=== PATIENT | male | born 1940 | race Two or more races ===

== ENCOUNTER 2019-09-15 15:40 | Inpatient (IN) | payer MEDICARE ==
--- NOTE | 2019-09-15 16:15 | RAD ---
EXAM: Single view of the chest HISTORY: Arrhythmia COMPARISON: 08/31/2019 FINDINGS: Single view of the chest shows a normal sized cardiomediastinal silhouette. There is no mayo dence of consolidation, mass, or pleural effusion. Degenerative changes are seen in the spine. IMPRESSION: No evidence of acute cardiopulmonary disease
[2019-09-15 16:22] LABS: #Basophils 0.1 thou/uL (0.0-0.2); #Eosinphils 0.3 thou/uL (0.0-0.7); #Lymphocytes 2.9 thou/uL (1.20-3.40); #Monocytes 0.8 thou/uL (0.11-0.59); #Neutrophils 8.2 thou/uL (1.40-6.50); %Basophils 0.6 % (0.0-1.0); %Eosinophils 2.3 % (0.0-10.0); %Lymphocytes 23.5 % (21.0-51.0); %Monocytes 6.3 % (0.0-10.0); %Neutrophils 67.2 % (42.0-75.0); Hemoglobin 14.9 g/dL (14.0-18.0); Mean Corpuscular HGB CONC 31.7 g/dL (32.0-36.0); Mean Corpuscular Volume 88.3 fL (78.0-98.0); Mean Platelet Volume 10.9 fL (7.4-10.4); Platelet Count 201 thou/uL (130-400); RBC Distribution Width 13.3 % (11.5-14.5); Red Blood Cell (RBC) Count 5.31 mill/uL (4.70-6.10); White Blood Cell (WBC) Count 12.2 thou/uL (4.8-10.8)
[2019-09-15] MEDS ORDERED: Diltiazem 125 MG/25 ML ONE (16:25)
[2019-09-15 16:48] LABS: ALT (SGPT) 16 U/L (8-55); AST (SGOT) 18 U/L (5-34); Albumin 3.7 g/dL (3.4-4.8); Alkaline Phosphatase 67 U/L (40-110); Anion Gap 16 mmol/L (10-20); BUN (Urea Nitrogen) 29 mg/dL (8.4-25.7); Bilirubin, Total 0.3 mg/dL (0.2-1.2); CK (CPK) 81 U/L (30-200); Calc. Creatinine Clearance 0 mL/min (70-130); Calcium 8.4 mg/dL (7.8-10.44); Carbon Dioxide 24 mmol/L (23-31); Chloride 103 mmol/L (98-107); Estimated GFR-MDRD 51; Globulin 2.7 g/dL (2.4-3.5); Glucose 218 mg/dL (83-110); Potassium 4.3 mmol/L (3.5-5.1); Protein, Total 6.4 g/dL (5.8-8.1); Sodium 139 mmol/L (136-145)
[2019-09-15 17:24] LABS: Bacteria/HPF 2+ HPF (None Seen); Bilirubin Negative (Negative); Blood, Urine Negative (Negative); Clarity Clear (Clear); Glucose, Urine (Dipstick) Normal (Negative); Leukocyte 250 Leu/uL (Negative); Nitrite Negative (Negative); Protein, Urine (Dipstick) Negative (Neg-Trace); RBC/HPF 0-3 HPF (0-3); Squamous Epithelial 0-3 HPF (0-3); Urobilinogen Normal mg/dL (Less than 2)
--- NOTE | 2019-09-15 18:35 | PDOC.FPRHP ---
- History of Present Illness Chief Complaint: heart palpitations History of Present Illness: Mr. Hogan is a 79 yo M who started feeling bad around noon yesterday with heart palpitations. [place] SOB at this time. Denies chest pain. He recalls this happening to him about 6 months ago and was hospitalized in [place]. Was not diagnosed w/ a-fib at the time and says his workup for CHF was negative. Does not take anticoagulation or antiarrythmic meds. + orthopnea which is new. Now laying at an incline in his hospital bed at home for the past few nights. Chronically has edema in lower legs. ED Course: Received cardizem by EMS. Started on diltiazem drip in ED. Given levaquin x1 for asymptomatic UTI. - Allergies/Adverse Reactions Allergies Allergy/AdvReac Type Severity Reaction Status Date / Time Penicillins Allergy Verified 09/15/19 20:48 - Home Medications Medication Instructions Recorded Confirmed Type Albuterol Sulfate [Proair HFA] 2 puff INH Q4HR PRN 09/15/19 09/15/19 History Allopurinol 100 mg PO BID 09/15/19 09/15/19 History Atorvastatin Calcium [Lipitor] 20 mg PO DAILY 09/15/19 09/15/19 History Carvedilol [Coreg] 6.25 mg PO BID 09/15/19 09/15/19 History Furosemide [Lasix] 40 mg PO DAILY 09/15/19 09/15/19 History Hydrochlorothiazide 100 mg PO DAILY 09/15/19 09/15/19 History Levalbuterol HCl [Xopenex] 1.25 mg NEB Q8HR 09/15/19 09/15/19 History Omeprazole 20 mg PO DAILY 09/15/19 09/15/19 History Tamsulosin HCl 0.4 mg PO DAILY 09/15/19 09/15/19 History glipiZIDE 10 mg PO DAILY-AC 09/15/19 09/15/19 History metFORMIN HCl [Metformin HCl] 1,000 mg PO BID 09/15/19 09/15/19 History - History PMHx: DM, HTN, COPD, gout, Hypercholesterolemia, says they ruled out CHF 6 months w/ ECHO in [place], BPH, denies any kidney problems. PSHx: hemorrhoidectomy, 29 years FHx: - denies heart problems in family - DM runs in family. 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 - never smoker - previously drank alcohol about 20 years ago, had a "problem" he said. - Denies other drugs - Review of Systems General: reports: fever/chills (+ chills) Eyes: denies: vision changes ENT: denies: rhinorrhea Respiratory: reports: cough, shortness of breath Cardiovascular: reports: palpitation, edema, orthopnea (sleeps in hospital bed at incline at night. Reports SOB w/ laying flat). denies: chest pain Gastrointestinal: denies: nausea, vomiting, diarrhea, abdominal pain Genitourinary: denies: dysuria Skin: reports: itching (all over) Musculoskeletal: denies: pain Neurological: reports: weakness. denies: syncope Psychological: denies: anxiety, depression - Vital signs BP: 128/107, Pulse: 105, Resp: 22, Temp: 98.0 (Oral), Pain: 0, O2 sat: 98 on ( 2L Oxygen), Time: 09/15/2019 18:02. - Physical Exam Constitutional: NAD, awake, alert and oriented, well developed HEENT: normocephalic and atraumatic, PERRLA, EOMI, conjunctiva clear, no scleral icterus, normal nasal mucosa, MMM Heart: RRR, normal S1/S2 -Heart: mild nonpitting edema in LE b/l up to ankles. systolic murmur 2/6 over apex Lungs: CTAB, no wheezing (poor air movement) Abdomen: soft, non-tender, bowel sounds present, no masses/distention Musculoskeletal: normal structure Neurological: no focal deficit Skin: no rash/lesions Heme/Lymphatic: no unusual bruising or bleeding Psychiatric: normal mood and affect, intact recent and remote memory FMR H&P: Results - Labs Result Diagrams: 09/15/19 16:12 09/15/19 16:12 Lab results: WBC 12.2 thou/uL (4.8-10.8) H 09/15/19 16:12 Hgb 14.9 g/dL (14.0-18.0) 09/15/19 16:12 Hct 46.8 % (42.0-52.0) 09/15/19 16:12 MCV 88.3 fL (78.0-98.0) 09/15/19 16:12 Plt Count 201 thou/uL (130-400) 09/15/19 16:12 Neutrophils % 67.2 % (42.0-75.0) 09/15/19 16:12 Sodium 139 mmol/L (136-145) 09/15/19 16:12 Potassium 4.3 mmol/L (3.5-5.1) 09/15/19 16:12 Chloride 103 mmol/L (98-107) 09/15/19 16:12 Carbon Dioxide 24 mmol/L (23-31) 09/15/19 16:12 BUN 29 mg/dL (8.4-25.7) H 09/15/19 16:12 Creatinine 1.35 mg/dL (0.7-1.3) H 09/15/19 16:12 Glucose 218 mg/dL (83-110) H 09/15/19 16:12 Calcium 8.4 mg/dL (7.8-10.44) 09/15/19 16:12 Total Bilirubin 0.3 mg/dL (0.2-1.2) 09/15/19 16:12 AST 18 U/L (5-34) 09/15/19 16:12 ALT 16 U/L (8-55) 09/15/19 16:12 Alkaline Phosphatase 67 U/L (40-110) 09/15/19 16:12 Creatine Kinase 81 U/L (30-200) 09/15/19 16:12 Serum Total Protein 6.4 g/dL (5.8-8.1) 09/15/19 16:12 Albumin 3.7 g/dL (3.4-4.8) 09/15/19 16:12 Urine Ketones Negative mg/dL (Negative) 09/15/19 17:11 Urine Blood Negative (Negative) 09/15/19 17:11 Urine Nitrite Negative (Negative) 09/15/19 17:11 Ur Leukocyte Esterase 250 Dalia/uL (Negative) A 09/15/19 17:11 Urine RBC 0-3 HPF (0-3) 09/15/19 17:11 Urine WBC 4-6 HPF (0-3) A 09/15/19 17:11 Ur Squamous Epith Cells 0-3 HPF (0-3) 09/15/19 17:11 Urine Bacteria 2+ HPF (None Seen) A 09/15/19 17:11 - EKG Interpretation EKG: Right axis deviation, a-fib, possible lead placement issue - Radiology Interpretation Chest x-ray Status: image reviewed by me, report reviewed by me (no acute process) FMR H&P: A/P - Problem List (1) Atrial fibrillation with rapid ventricular response Current Visit: Yes Status: Acute Code(s): I48.91 - UNSPECIFIED ATRIAL FIBRILLATION (2) HTN (hypertension) Current Visit: Yes Status: Acute Code(s): I10 - ESSENTIAL (PRIMARY) HYPERTENSION (3) Diabetes mellitus Current Visit: Yes Status: Acute Code(s): E11.9 - TYPE 2 DIABETES MELLITUS WITHOUT COMPLICATIONS (4) CRISTA (acute kidney injury) Current Visit: Yes Status: Acute Code(s): N17.9 - ACUTE KIDNEY FAILURE, UNSPECIFIED - Plan 79 yo M admitted for heart palpitations: Atrial fibrillation w/ RVR, new onset - s/p cardizem by EMS - on diltiazem drip now - ECHO in AM - AM labs of CBC, BMP - Magnesium, TSH pending - Consult cardiology in AM. CRISTA vs CRISTA on CKD - Holding fluids due to pt;s probable CHF issues. Continue to monitor. - Baseline appears to be Creatinine of 1.05. - hold allopurinol New Onset CHF vs. CHF exacerbation - ECHO for EF. - Strict I/Os - Daily weights - Consult cardiology in AM. - Diurese HTN DM BPH - continue home medications Gout - hold allopurinol GERD - hold omeprazole - give pepcid BID while in hospital KAILEY, OHS - morbidly obese - poor air movement, used to sleep w/ CPAP Code: FULL Fluids: none. VTE PPx: lovenox, one dose now, then 40 mg daily GI PPx: none Yoko Alves MD PGY1 Disposition/LOS: admit to telemetry inpatient. LOS > 48 H. FMR H&P: Upper Level - Plan Date/Time: 09/15/191832 PCP: RAMESH Woody ([place], [place]) HPI: This is a 79 yo M with PMH including CHF, DM2, HTN, COPD, and gout who comes in for palpitations and shortness of breath which started getting worse yesterday. He previously lived in a long term but now lives at home alone. He states he is able to ambulate around his house at baseline but uses a wheelchair when going out which he does not do often. Patient denies CP. He does feel short of breath, has been having to sit up at night when sleeping for the last few days. He thinks his baseline weight is about 330, states he is up 8lbs over the last 2-3 months. Does note increased swelling at the legs. Denies ever having a heart catheterization. States he had an echo 6 mo ago and was told it was normal. Patient states he had a similar episode to this one 6 months ago and for which he was admitted in [place]. Dr. Rosales in [place] is his sign carpenter. States he used to use CPAP but insurance quit paying for it. 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 Full ROM. JVD ~ 4 cm difficult to appreciate 2/2 obesity Heart/Cardiovascular System: irregularly irregular, Cap refill < 3 seconds, no rub, no murmur Lungs/Respiratory System: CTA-B, no resp distress, mild exp wheeze, obesity hypoventilation Abdomen/Gastro-Intestinal System: no abdominal tenderness, normal bowel sounds Extremities: Warm extremities. +1 pitting edema to mid calf Neuro: No gross deficits appreciated. CN 2-12 grossly intact Psychiatry: Awake, Alert and cooperative with exam Skin: No lesions, rashes, or ulcers Musculoskeletal: Full ROM A/P: # Atrial Fibrillation w/ RVR - Diltiazem drip 15 - CHADS-VASC:5, eliquis, would be candidate for home anticoagulation - EKG afib w/ RVR, T inv I and AvL, no st changes or q waves - Home coreg - Cardiology consult in AM, check TSH # Likely mild CHF exacerbation - Reports 8lbs wt gain, sleeps sitting up, edema - Lasix 40mg IV, Cr 1.35 (baseline 1.1) monitor - Home coreg - Check echo, BNP - Consider adding Lisinopril, spironolactone pending results - Patient from [facility], likely not candidate for HF clinic here # COPD, Obesity Hypoventilation syndrome, KAILEY - home duoneb, on 2L o2 at home at baseline - likely source for afib # HTN, gout, DMII - home meds, check A1C Fluids: TKO Code status: Full PPx: lovenox Dispo: 2-3 days, would benefit from rehab
[2019-09-15] MEDS ORDERED: Acetaminophen 325 MG TAB PO PRN (19:02)
[2019-09-15] MEDS ORDERED: Enoxaparin Sodium 40 MG/0.4 ML SYRINGE SC SCH (19:15)
[2019-09-15] MEDS ORDERED: Lactated Ringer's 1,000 ML IV SCH (19:30)
[2019-09-15] MEDS ORDERED: Carvedilol 6.25 MG TAB PO SCH (20:00)
[2019-09-15] MEDS ORDERED: Furosemide 40 MG/4 ML VIAL SLOW IVP SCH (20:00)
[2019-09-15 20:03] LABS: Hemoglobin A1c 8.9 % (4.0-6.0)
[2019-09-15 20:53] VITALS: BMI 47.1
[2019-09-15] MEDS ORDERED: Atorvastatin Calcium 40 MG TAB PO SCH (21:00)
[2019-09-15] MEDS: metFORMIN 500 MG TAB PO SCH (22:14)
[2019-09-15] MEDS: Famotidine 20 MG TAB PO SCH (22:14)
[2019-09-16] MEDS ORDERED: PROVENTIL INHALER 6.7 G (200 INHALATIONS) INH PRN (01:53)
[2019-09-16] MEDS: Diltiazem 125 MG in Sodium Chloride 0.9% 100 ML IVPB SCH ×2 (02:18→14:17)
[2019-09-16 04:31] LABS: #Eosinphils 0.4 thou/uL (0.0-0.7); #Lymphocytes 2.6 thou/uL (1.20-3.40); #Monocytes 0.9 thou/uL (0.11-0.59); #Neutrophils 6.9 thou/uL (1.40-6.50); %Basophils 0.4 % (0.0-1.0); %Eosinophils 3.4 % (0.0-10.0); %Lymphocytes 24.3 % (21.0-51.0); %Monocytes 7.9 % (0.0-10.0); Hemoglobin 13.6 g/dL (14.0-18.0); Mean Corpuscular HGB CONC 31.9 g/dL (32.0-36.0); Mean Corpuscular Hemoglobin 28.4 pg (27.0-31.0); Mean Corpuscular Volume 89.2 fL (78.0-98.0); Mean Platelet Volume 10.8 fL (7.4-10.4); Platelet Count 173 thou/uL (130-400); RBC Distribution Width 13.2 % (11.5-14.5); Red Blood Cell (RBC) Count 4.79 mill/uL (4.70-6.10); White Blood Cell (WBC) Count 10.8 thou/uL (4.8-10.8)
[2019-09-16 04:47] LABS: Anion Gap 10 mmol/L (10-20); BUN (Urea Nitrogen) 23 mg/dL (8.4-25.7); Calc. Creatinine Clearance 109 mL/min (70-130); Calcium 8.3 mg/dL (7.8-10.44); Carbon Dioxide 31 mmol/L (23-31); Chloride 100 mmol/L (98-107); Estimated GFR-MDRD 57; Glucose 188 mg/dL (83-110); Potassium 3.3 mmol/L (3.5-5.1); Sodium 138 mmol/L (136-145)
[2019-09-16] MEDS ORDERED: Magnesium 2 GM/50 ML 2 GM in Premix Bag 1 BAG IVPB SCH (05:30)
[2019-09-16] MEDS ORDERED: Potassium Chloride 20 MEQ TAB PO SCH (05:30)
--- NOTE | 2019-09-16 06:04 | PDOC.FM ---
- Subjective Subjective: Pt feeling well this morning, denies any complaints. Does note increasing shortness of breath over the last few months with BARNEY and orthopnea. States he was on anticoagulation 40 years ago for a clot in his lung. Denies ever having bleeding problems, stroke, or hemorrhage. - Objective Vital Signs & Weight: Vital Signs (12 hours) Temp Pulse Resp BP Pulse Ox 09/16/19 03:00 98.1 F 78 23 H 145/71 H 97 09/15/19 20:20 98.3 F 95 18 160/94 H 99 Weight Weight 157.567 kg Result Diagrams: 09/16/19 04:03 09/16/19 04:03 Phys Exam - Physical Examination Constitutional: NAD HEENT: moist MMs Neck: full ROM Rhochi distantly heard in all [place] Irregularly irregular, very distant heart sounds difficult to auscultate Gastrointestinal: soft, non-tender Musculoskeletal: pulses present, edema present (1+ BLE) Neurological: moves all 4 limbs Psychiatric: normal affect, A&O x 3 Dx/Plan (1) Atrial fibrillation Code(s): I48.91 - UNSPECIFIED ATRIAL FIBRILLATION Status: Acute (2) Atrial fibrillation with rapid ventricular response Code(s): I48.91 - UNSPECIFIED ATRIAL FIBRILLATION Status: Resolved (3) Diabetes mellitus Code(s): E11.9 - TYPE 2 DIABETES MELLITUS WITHOUT COMPLICATIONS Status: Acute (4) HTN (hypertension) Code(s): I10 - ESSENTIAL (PRIMARY) HYPERTENSION Status: Acute (5) Obstructive sleep apnea Code(s): G47.33 - OBSTRUCTIVE SLEEP APNEA (ADULT) (PEDIATRIC) Status: Acute - Plan Plan: 79 yo M admitted for heart palpitations: Atrial fibrillation w/ RVR, new onset - Currently rate controlled on dilt ggt @ 10, plan to transition to PO later today - Resumed home coreg - CHADSVASC: 5 - HASBLED: 2 - Pt will likely require conversion to anticoagulant, will await Echo results incase of procedural necessity - Will consult cardiology this morning CRISTA vs CRISTA on CKD - Holding fluids due to probable CHF issues. Continue to monitor. - Currently improved nearing baseline - hold allopurinol New Onset CHF vs. CHF exacerbation - ECHO for EF. - Strict I/Os - Daily weights - Diuresing HTN DM BPH - continue home medications Gout - hold allopurinol GERD - hold omeprazole - give pepcid BID while in hospital KAILEY, OHS - morbidly obese - poor air movement, used to sleep w/ CPAP Code: FULL Fluids: none. VTE PPx: lovenox, one dose now, then 40 mg daily GI PPx: none Disposition/LOS: Admit to telemetry inpatient for continued rate control and cardiac monitoring. LOS > 48 H. Addendum - Attending - Attending Attestation Date/Time: 09/16/192236 I personally evaluated the patient and discussed the management with Dr. Montemayor I agree with the History, Examination, Assessment and Plan documented above with any addition or exceptions noted below.
[2019-09-16] MEDS: Levalbuterol HCl 1.25 MG/0.5 ML NEB NEB SCH ×3 (06:37→22:24)
[2019-09-16] MEDS ORDERED: glipiZIDE 10 MG TAB PO SCH (07:30)
[2019-09-16] MEDS ORDERED: Carvedilol 6.25 MG TAB PO SCH (08:00)
[2019-09-16] MEDS ORDERED: Enoxaparin Sodium 40 MG/0.4 ML SYRINGE SC SCH (09:00)
[2019-09-16] MEDS ORDERED: Furosemide 40 MG TAB PO SCH (09:00)
[2019-09-16] MEDS ORDERED: Hydrochlorothiazide 25 MG TAB PO SCH (09:00)
[2019-09-16] MEDS: metFORMIN 500 MG TAB PO SCH ×2 (09:10→20:44)
[2019-09-16] MEDS: Tamsulosin HCl 0.4 MG CAP PO SCH (09:10)
[2019-09-16] MEDS: Famotidine 20 MG TAB PO SCH ×2 (09:11→20:44)
[2019-09-16] MEDS: Carvedilol 6.25 MG TAB PO SCH ×2 (09:11→20:44)
[2019-09-16] MEDS: Furosemide 40 MG/4 ML VIAL SLOW IVP SCH (09:12)
[2019-09-16] MEDS ORDERED: Dextrose 50% Abboject 50 ML SYRINGE SLOW IVP PRN (17:05)
[2019-09-16] MEDS ORDERED: Dextrose 5% in Water 1,000 ML IV PRN (17:05)
[2019-09-16] MEDS: Insulin Glargine 30 UNITS in Pre-Filled Syringe SC SCH (20:41)
[2019-09-16] MEDS: Enoxaparin Sodium 120 MG/0.8 ML SYRINGE SC SCH (20:44)
[2019-09-16] MEDS: Enoxaparin Sodium 30 MG/0.3 ML SYRINGE SC SCH (20:44)
[2019-09-16] MEDS: Atorvastatin Calcium 20 MG TAB PO SCH (20:44)
[2019-09-16] MEDS ORDERED: Enoxaparin Sodium 100 MG/ML SYRINGE SC SCH ×2 (21:00)
--- NOTE | 2019-09-16 21:43 | CON ---
DATE OF CONSULTATION: HISTORY OF PRESENT ILLNESS: Mr. Hogan in a 79-year-old male with past medical history of hypertension, diabetes, hyperlipidemia, COPD that presented with a 2- day history of not feeling well, shortness of breath and heart palpitations. He was noted to have atrial fibrillation and was given Cardizem by EMS and then started on a diltiazem drip. He has continued to be on a drip since admission. He noted a similar presentation with evaluation at the hospital in [place]. He says he had an echocardiogram at that time, which was normal. He denies any history of prior atrial fibrillation. He notes chronic lower extremity edema, which had worsened over the past week and his primary care physician increased his home dose of Lasix from 20 mg to 40 mg p.o. daily. He reports feeling well today. Notes some shortness of breath that is at baseline. Denies heart palpitations, chest pain. PAST MEDICAL HISTORY: Includes: 1. Hypertension. 2. Type 2 diabetes. 3. Dyslipidemia. 4. BPH. 5. Gout. 6. COPD. PAST SURGICAL HISTORY: Hemorrhoidectomy. FAMILY HISTORY: Denies any family history of heart problems. No family history of diabetes. SOCIAL HISTORY: Denies any current tobacco, alcohol, or drug use. 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 PHYSICAL EXAMINATION: VITAL SIGNS: Temp 97.5, pulse 76, respirations 16, 99% on 3 L, blood pressure 117/77. GENERAL: Awake, alert, oriented and obese. HEENT: Normocephalic, atraumatic. HEART: Irregularly irregular rhythm. LUNGS: Clear to auscultation bilaterally. EXTREMITIES: Nonpitting edema in bilateral lower extremities. LABORATORY DATA: Hemoglobin 13.6, sodium 138, potassium 3.3, creatinine 1.23, GFR of 57, BNP is 179. He has a urinary tract infection with cultures growing presumptive E coli. IMAGIN. Chest x-ray showed no acute cardiopulmonary process. 2. EKG, atrial fibrillation, rate controlled with rate in the 70s. ASSESSMENT AND PLAN: 1. Atrial fibrillation with rapid ventricular rate that is now rate controlled on diltiazem drip. Echocardiogram has been completed, read is pending. 2. Thyroid studies within normal range. 3. Hypertension, well controlled. Continue home medications. 4. We will await results from echocardiogram to give further recommendations. The patient would likely benefit from stress test. Continue IV diuretics. Job ID: [id number] MTDD
[2019-09-16] MEDS ORDERED: Sodium Chloride For Inhalation 0.9% 3 ML NEB ONE (22:06)
--- NOTE | 2019-09-16 23:31 | CON ---
DATE OF CONSULTATION: 09/16/2019 INDICATION FOR CONSULTATION: A 79-year-old patient with atrial fibrillation and rapid ventricular response. We were asked to see him for the atrial fibrillation. He also has history of cardiomyopathy. HISTORY OF PRESENT ILLNESS: This very unfortunate 79-year-old gentleman, who is a very extremely poor historian. He changes story multiple times. 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 He then said he worked for the [employer]. 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 It is unclear exactly what he did in the past and there was no family available. I tried to call his daughter, but no one answered the phone. He apparently had some workup in the past in [place], [place]. He had an echocardiogram, which shows severe decrease in left ventricular systolic function at that time with ejection fraction of 30% range. As far as I can tell, he had no further cardiac evaluation. He did not have a cardiac catheterization. He did apparently say he had some time of pulmonary embolus at some time, but I was uncertain as exactly what was performed at that time. Actually, the ejection fraction in [place] by the measurements showed ejection fraction of 37%. However, the by the dictation ejection fraction was estimated at 50% to 55%, but he did have evidence of severe diastolic dysfunction. There was no significant wall motion abnormalities noted. The left atrium at that time was 4.5 cm. The left ventricular posterior wall thickness is 1.3 and interventricular septal thickness was 1.5 compatible with moderate left ventricular hypertrophy. The left ventricle is at the borderline of upper limits, but did not appear to be dilated. The aortic valve area was 2.0 cm. He underwent echocardiogram today by my evaluation. This is somewhat very technically difficult study with ejection fraction appears to be about 25% to 30%. He also has a history apparently of COPD. He said he had asthma when he was younger. He said he denies any history of tobacco abuse. 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 He also has history of hypercholesterolemia, hypertension as well as diabetes. He presented at this time complaining of palpitations and was found to have atrial fibrillation with a rapid ventricular response. There is an EKG from October of this year, which does show a sinus rhythm and no evidence of atrial fibrillation. The EKG at this time still continues to show atrial fibrillation, but the heart rate is under better control after he has been given IV diltiazem and he denies any chest pain or symptoms of any underlying ischemia. The EKG does not show any acute ischemic changes. He does have some nonspecific ST-segment changes, but no ischemic changes were noted. PAST MEDICAL HISTORY: Difficult to obtain, but it sounds as if he may have had a pulmonary embolus in the past. He has had a hemorrhoidectomy. He has a history of hypertension, diabetes, hypercholesterolemia, COPD, gout. FAMILY HISTORY: Noncontributory at this time. SOCIAL HISTORY: He says he is . He has a daughter who lives nearby. He said he drank heavily in the past, but has not drank for several years. He does not smoke. He said he never did, but was exposed to smoke. REVIEW OF SYSTEMS: I cannot determine whether or not he is telling the truth or not. He had multiple complaints of leg swelling, but today the legs are not edematous. He has pink legs, but not edematous. He also had some shortness of breath, but he denied any chest pain. He had no GI or complaints. MEDICATIONS: Included: 1. Albuterol inhaler. 2. Allopurinol. 3. Lipitor 20 mg daily. 4. Coreg 6.25 mg b.i.d. 5. Lasix 40 mg daily. 6. Hydrochlorothiazide 100 mg daily. 7. Xopenex inhalers or nebulizer treatments. 8. Omeprazole. 9. Tamsulosin 0.4 mg daily. 10. Glipizide 10 mg daily. 11. Metformin 1000 mg b.i.d. PHYSICAL EXAMINATION: GENERAL: Reveals a large morbidly obese gentleman who weighs over 340 pounds, who is almost 350. VITAL SIGNS: His blood pressure 144/64, heart rate is anywhere between 90 to low 100. He is afebrile, respiratory rate 17, O2 saturation 96%. HEENT: Shows the head to be normocephalic and atraumatic. Carotid pulses are present without any bruits. CHEST: Has some late expiratory wheezing. CARDIOVASCULAR: Reveals an irregular regular rhythm. I cannot hear any significant murmurs, heaves, thrills, bruits or rubs. ABDOMEN: Shows morbid obesity. I cannot palpate any palpable masses. There was no tenderness noted. EXTREMITIES: Show no significant clubbing or cyanosis. Pedal pulses were decreased, but were present at least the dorsalis pedis pulses were present. NEUROLOGIC: In my opinion, the patient is very confused. He rambles on about various stories. This may be due to the underlying urinary tract infection or other comorbidities the patient may have, but at this time he does appear to be significantly confused. 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 LABORATORY DATA: Shows a WBC of 10.8, hemoglobin was 13.6, and platelet count was 173,000. Sodium was 138, potassium of 3.3, creatinine is 1.23 with a BUN of 23, and blood sugar was up to 250 by Accu-Cheks. Troponin I is negative. His BNP was 179, which is not significantly elevated, only mildly elevated. IMPRESSION: 1. Morbidly obese gentleman with atrial fibrillation of undetermined etiology and uncertain onset of this atrial fibrillation. He did not have this by EKG earlier back in October of 2018. Since I am uncertain as to when the atrial fibrillation started, he will need to be on anticoagulation for at least 4-6 weeks to try to attempt to cardiovert the patient to sinus rhythm either by medication or electrical cardioversion. His left atrial size did not appear to be dilated very much. It is only about 4.2, and he may be a reasonable candidate for cardioversion. His ejection fraction is compromised and this may be due to the atrial fibrillation with rapid ventricular response. According to the echocardiogram performed at an outside facility earlier, I believe it was performed in October of 2018, ejection fraction by the blending machine feeder showed ejection fraction of 50% to 55%. and the left atrium at that time was 4.5 cm. At this time, I would agree with the Lovenox. He will need to have a higher dose due to his morbid obesity and would be transitioned over to Eliquis, if he is able to take the medication or Coumadin based on the family situation whether or not he will be able to monitor this medication, but most likely Eliquis may be a better situation for this gentleman. 2. History of hypertension. This is under good control at this time. 3. History of diabetes. This is controlled by the primary care service. 4. Hypercholesterolemia. We will continue on statin medication. We will continue to monitor the patient with you, but we will try to transition or increase the beta raj and try to lower the dose of the diltiazem or discontinue this medication due to his decrease in left ventricular systolic function. We will also ask electrophysiology evaluation with this patient with atrial fibrillation and severe decrease in left ventricular systolic function. He may need to undergo a transesophageal echocardiogram to get better evaluation of the left ventricular function and also the left atrial size. If he continues to have problems of tachycardia, he may need to undergo early transesophageal echocardiogram to rule out evidence of left atrial appendage thrombus and then may need to undergo earlier electrical cardioversion of his atrial fibrillation. I thought at some point in time it would be advisable, if he has not had some type of stress testing to undergo stress testing to rule out evidence for underlying coronary artery disease as a possible etiology of the atrial fibrillation. Job ID: [id number]
--- NOTE | 2019-09-17 07:02 | PDOC.FM ---
"- Subjective Subjective: Patient is doing well this morning. He has no new complaints. He denies pain. He states that he is on oxygen at home. - Objective MAR Reviewed: Yes Vital Signs & Weight: Vital Signs (12 hours) Temp Pulse Resp BP BP Pulse Ox 09/17/19 03:36 98.1 F 78 20 136/67 93 L 09/17/19 00:00 77 119/58 L 09/16/19 22:25 90 16 97 09/16/19 22:24 90 16 97 09/16/19 20:44 116/62 09/16/19 20:00 95 09/16/19 19:57 97.8 F 85 18 116/58 L 98 Weight Weight 157.17 kg I&O: 09/15/19 09/16/19 09/17/19 06:59 06:59 06:59 Intake Total 1386 Output Total 750 Balance 636 Result Diagrams: 09/16/19 04:03 09/16/19 04:03 Radiology: ECHO Showed EF of 25-30% Phys Exam - Physical Examination Constitutional: NAD HEENT: PERRLA, moist MMs, sclera anicteric Neck: supple, full ROM Respiratory: no wheezing, no rales, no rhonchi, clear to auscultation bilateral Poor air movement. Cardiovascular: no significant murmur, no rub Regular rate, irregularly irregular rhythm. Gastrointestinal: soft, non-tender Musculoskeletal: edema present Neurological: non-focal, moves all 4 limbs Psychiatric: A&O x 3 Deviation from normal: Odd affect Skin: no rash, normal turgor Dx/Plan (1) CRISTA (acute kidney injury) Code(s): N17.9 - ACUTE KIDNEY FAILURE, UNSPECIFIED Status: Acute (2) Atrial fibrillation Code(s): I48.91 - UNSPECIFIED ATRIAL FIBRILLATION Status: Acute (3) Diabetes mellitus Code(s): E11.9 - TYPE 2 DIABETES MELLITUS WITHOUT COMPLICATIONS Status: Acute (4) HTN (hypertension) Code(s): I10 - ESSENTIAL (PRIMARY) HYPERTENSION Status: Acute (5) Obstructive sleep apnea Code(s): G47.33 - OBSTRUCTIVE SLEEP APNEA (ADULT) (PEDIATRIC) Status: Acute (6) Atrial fibrillation with rapid ventricular response Code(s): I48.91 - UNSPECIFIED ATRIAL FIBRILLATION Status: Resolved - Plan Plan: 79 yo M admitted for heart palpitations: Atrial fibrillation w/ RVR, new onset - Started PO Diltiazem 240mg 09/16. Dilt gtt turned off at 20:48. Overnight, remained in atrial fibrillation with the rate averaging in the 70s-80s - Resumed home coreg - CHADSVASC: 5 | HASBLED: 2 - Started on therapeutic lovenox, cardiology note mentions transitioning to eliquis on discharge. - Cardiology consulted, appreciate recommendations CRISTA vs CRISTA on CKD - Holding fluids due to CHF. Continue to monitor. - Currently improved nearing baseline - hold allopurinol New Onset CHF vs. CHF exacerbation - ECHO showed EF 25-30% - Strict I/Os - Daily weights - Diuresing HTN DM BPH - continue home medications Gout - hold allopurinol GERD - hold omeprazole - give pepcid BID while in hospital KAILEY, OHS - morbidly obese - poor air movement, used to sleep w/ CPAP Code: FULL Fluids: none. VTE PPx: lovenox, therapeutic GI PPx: pepcid Disposition/LOS: Admit to telemetry inpatient for continued rate control and cardiac monitoring. LOS > 48 H. Addendum - Attending - Attending Attestation Date/Time: 09/17/19 3596 I personally evaluated the patient and discussed the management with Dr. Gonzalez. I agree with the History, Examination, Assessment and Plan documented above with any addition or exceptions noted below. Patient here with AFib RVR. Reports improvement this morning and feels much better. HR now controlled, on Coreg and Diltiazem. EP consulted by Cardiology. Continue with diuresis due to volume overload, as well as glucose control. Wean O2 as tolerated."
[2019-09-17] MEDS: Levalbuterol HCl 1.25 MG/0.5 ML NEB NEB SCH (07:25)
[2019-09-17] MEDS: Enoxaparin Sodium 120 MG/0.8 ML SYRINGE SC SCH ×2 (08:36→20:47)
[2019-09-17] MEDS: Furosemide 40 MG/4 ML VIAL SLOW IVP SCH (08:37)
[2019-09-17] MEDS: Enoxaparin Sodium 30 MG/0.3 ML SYRINGE SC SCH ×2 (08:37→20:46)
[2019-09-17] MEDS: Famotidine 20 MG TAB PO SCH ×2 (08:37→20:50)
[2019-09-17] MEDS: metFORMIN 500 MG TAB PO SCH ×2 (08:37→20:47)
[2019-09-17] MEDS: Tamsulosin HCl 0.4 MG CAP PO SCH (08:37)
[2019-09-17] MEDS: Carvedilol 6.25 MG TAB PO SCH ×2 (08:37→20:50)
[2019-09-17] MEDS ORDERED: Albuterol Sulfate 2.5 mg/0.5 ml Neb NEB PRN (08:53)
[2019-09-17] MEDS ORDERED: HumaLOG 300 UNITS/3 ML VIAL SC PRN (09:07)
[2019-09-17] MEDS ORDERED: Levalbuterol HCl 1.25 MG/0.5 ML NEB NEB PRN (09:08)
--- NOTE | 2019-09-17 12:03 | EKG ---
Test Reason : Blood Pressure : / mmHG Vent. Rate : 116 BPM Atrial Rate : 141 BPM P-R Int : 000 ms QRS Dur : 104 ms QT Int : 330 ms P-R-T Axes : 000 181 127 degrees QTc Int : 458 ms Atrial fibrillation with rapid ventricular response Right superior axis deviation Abnormal ECG Confirmed by AKIKO MOY MD ([id number]), desk editor JO VALERIO ([id number]) on 09/17/2019 12:02:42 PM Referred By: Confirmed By:AKIKO MOY MD
--- NOTE | 2019-09-17 16:16 | PDOC.CPN ---
- Subjective Date: 09/17/19 Time: 16:32 Interval history: The pt seen and examined. No overnight events. No cardiac complaints - Objective Allergies/Adverse Reactions: Allergies Allergy/AdvReac Type Severity Reaction Status Date / Time Penicillins Allergy Verified 09/15/19 20:48 Visit Medications: Current Medications Acetaminophen (Tylenol) 650 mg PO Q4H PRN PRN Reason: Headache/Fever/Mild Pain (1-3) Albuterol Sulfate (Proventil Hfa) 2 puff INH Q4HR PRN PRN Reason: SOB/wheezing Albuterol Sulfate (Ventolin) 2.5 mg NEB Q8H PRN PRN Reason: SOB &/or Wheezing Albuterol/Ipratropium (Duoneb) 3 ml NEB [id number] PRN PRN Reason: SOB &/or Wheezing Atorvastatin Calcium (Lipitor) 20 mg PO [facility] Last Admin: 09/16/19 20:44 Dose: 20 mg Carvedilol (Coreg) 6.25 mg PO BID [facility] Last Admin: 09/17/19 08:37 Dose: 6.25 mg Dextrose/Water (Dextrose 50%) 25 gm SLOW IVP PRN PRN PRN Reason: Hypoglycemia Diltiazem HCl (Cardizem Cd) 240 mg PO DAILY [facility] Last Admin: 09/17/19 08:37 Dose: 240 mg Enoxaparin Sodium (Lovenox) 120 mg SC 0900,2100 [facility] Last Admin: 09/17/19 08:36 Dose: 120 mg Enoxaparin Sodium (Lovenox) 30 mg SC BID [facility] Last Admin: 09/17/19 08:37 Dose: 30 mg Famotidine (Pepcid) 20 mg PO BID [facility] Last Admin: 09/17/19 08:37 Dose: 20 mg Furosemide (Lasix) 40 mg SLOW IVP DAILY [facility] Last Admin: 09/17/19 08:37 Dose: 40 mg Glucagon (Glucagon) 1 mg IM PRN PRN PRN Reason: Hypoglycemia Dextrose/Water (D5w) 1,000 mls @ 0 mls/hr IV .Q0M PRN PRN Reason: Hypoglycemia Insulin Glargine 30 units/ (Miscellaneous Medication) 0.3 mls @ 0 mls/hr SC [facility] Last Admin: 09/16/19 20:41 Dose: 0.3 mls Insulin Human Lispro (Humalog) 0 units SC .MILD SLIDING SCALE PRN PRN Reason: Mild Correctional Scale Insulin Human Lispro (Humalog) 0 units SC .BEDTIME SLIDING SC PRN PRN Reason: Bedtime Correctional Scale Metformin HCl (Glucophage) 1,000 mg PO BID [facility] Last Admin: 09/17/19 08:37 Dose: 1,000 mg Sodium Chloride (Flush - Normal Saline) 10 ml IVF Q12HR PRN PRN Reason: Saline Flush Sodium Chloride (Flush - Normal Saline) 10 ml IVF PRN PRN PRN Reason: Saline Flush Tamsulosin HCl (Flomax) 0.4 mg PO DAILY [facility] Last Admin: 09/17/19 08:37 Dose: 0.4 mg Vital Signs & Weight: Vital Signs Temp Pulse Resp BP Pulse Ox 09/17/19 11:37 97.8 F 116 H 17 112/57 L 98 09/17/19 08:37 94 L 09/17/19 07:45 98.2 F 83 18 165/87 H 94 L 09/17/19 07:25 78 16 Weight 346 lb 8 oz - Physical Exam General: alert & oriented x3 Neck: supple neck Cardiac: irregularly regular Extremities: other: (1+ pitting BLE edema with mild erythmia) - Labs Result Diagrams: 09/16/19 04:03 09/16/19 04:03 Troponin/CKMB Troponin I Less than 0.010 ng/mL (< 0.028) 09/15/19 16:12 - Telemetry Supraventricular conduction: atrial fibrillation - Assessment/Plan Assessment/Plan: 1. New onset Afib with RVR - well controlled HR with Diltiazem 240mg qd and Coreg 6.25mg BID; Will decrease Dosage of Diltiazem and increase Coreg dosage due to EF 25-30%; On Lovenox which will transition to eliquis on discharge. EP consult; 2. Chronic systolic HF with EF 25-30% possible due to hx of Afib- 3. HTN - stable with current med 4. DM type 2 5. HLD 6. CRISTA - stable 7. KAILEY - Strongly recommend to wear Cpap at HS for hx of afib and CMY. 8. COPD with Home O2 2LNC MAR reviewed * Echo on 09/16/2019 with EF 25-30%, mild-mod dilated LA, mild TR, and trace MR Pt. seen and eval. by me. I agree with the A/P by the PRESSER ALL AROUND.Chest clear. irreg., no edema.
[2019-09-17] MEDS: Atorvastatin Calcium 20 MG TAB PO SCH (20:46)
[2019-09-17] MEDS: Insulin Glargine 30 UNITS in Pre-Filled Syringe SC SCH (20:48)
--- NOTE | 2019-09-18 06:33 | PDOC.FM ---
"- Subjective Subjective: Mr. Hogan was resting comfortably this morning. He states his swelling is significantly improved. - Objective MAR Reviewed: Yes Vital Signs & Weight: Vital Signs (12 hours) Temp Pulse Resp BP BP BP Pulse Ox 09/18/19 03:20 97.4 F L 84 16 124/90 98 09/18/19 01:34 74 16 09/17/19 23:05 119/63 09/17/19 20:50 116/62 09/17/19 20:00 95 09/17/19 19:01 97.6 F 81 20 130/68 99 Weight Weight 158.258 kg I&O: 09/16/19 09/17/19 09/18/19 06:59 06:59 06:59 Intake Total 1386 1614 Output Total 750 2100 Balance 636 -486 Result Diagrams: 09/16/19 04:03 09/18/19 06:46 Phys Exam - Physical Examination Constitutional: NAD HEENT: moist MMs, sclera anicteric Neck: no JVD, supple Respiratory: no wheezing, no rales, no rhonchi, clear to auscultation bilateral Cardiovascular: no significant murmur, no rub Irregularly irregular rhythm Gastrointestinal: soft, non-tender Musculoskeletal: edema present trace Neurological: non-focal, normal sensation Psychiatric: normal affect, A&O x 3 Skin: no rash, normal turgor Dx/Plan (1) CRISTA (acute kidney injury) Code(s): N17.9 - ACUTE KIDNEY FAILURE, UNSPECIFIED Status: Acute (2) Atrial fibrillation Code(s): I48.91 - UNSPECIFIED ATRIAL FIBRILLATION Status: Acute (3) Diabetes mellitus Code(s): E11.9 - TYPE 2 DIABETES MELLITUS WITHOUT COMPLICATIONS Status: Acute (4) HTN (hypertension) Code(s): I10 - ESSENTIAL (PRIMARY) HYPERTENSION Status: Acute (5) Obstructive sleep apnea Code(s): G47.33 - OBSTRUCTIVE SLEEP APNEA (ADULT) (PEDIATRIC) Status: Acute (6) Atrial fibrillation with rapid ventricular response Code(s): I48.91 - UNSPECIFIED ATRIAL FIBRILLATION Status: Resolved - Plan Plan: 79 yo M admitted for heart palpitations: Atrial fibrillation w/ RVR, new onset - Continues to be in atrial fibrillation, rate in the 70s-90s. - Started PO Diltiazem 240mg 09/16. - Per cardiology progress note: Will decrease Dosage of Diltiazem and increase Coreg dosage due to EF 25-30%. However it appears that they discontinued the diltiazem. Will await recommendations today. - CHADSVASC: 5 | HASBLED: 2 - Started on therapeutic lovenox, cardiology note mentions transitioning to eliquis on discharge. - Cardiology consulted, appreciate recommendations - Awaiting EP Consult CRISTA vs CRISTA on CKD, resolved - Holding fluids due to CHF. Continue to monitor. - Currently improved nearing baseline - hold allopurinol - Repeat BMP today New Onset CHF vs. CHF exacerbation - ECHO showed EF 25-30% - Strict I/Os - Daily weights - Diuresing HTN DM BPH - continue home medications Gout - hold allopurinol GERD - hold omeprazole - give pepcid BID while in hospital KAILEY, OHS - morbidly obese - poor air movement, used to sleep w/ CPAP, recommend outpatient sleep study and to restart CPAP therapy. Code: FULL Fluids: none. VTE PPx: lovenox, therapeutic GI PPx: pepcid Disposition/LOS: Admit to telemetry inpatient for continued rate control and cardiac monitoring. LOS > 48 H. Addendum - Attending - Attending Attestation Date/Time: 09/18/19 6977 I personally evaluated the patient and discussed the management with Dr. Gonzalez. I agree with the History, Examination, Assessment and Plan documented above with any addition or exceptions noted below. Patient improved. Continue with rate control of Afib and await EP recs. Continue diuresis and blood glucose/blood pressure control."
[2019-09-18 07:39] LABS: Anion Gap 12 mmol/L (10-20); BUN (Urea Nitrogen) 14 mg/dL (8.4-25.7); Calc. Creatinine Clearance 144 mL/min (70-130); Calcium 8.7 mg/dL (7.8-10.44); Carbon Dioxide 28 mmol/L (23-31); Chloride 102 mmol/L (98-107); Estimated GFR-MDRD 78; Glucose 112 mg/dL (83-110); Potassium 3.8 mmol/L (3.5-5.1); Sodium 138 mmol/L (136-145)
[2019-09-18] MEDS ORDERED: Carvedilol 6.25 MG TAB PO SCH (08:30)
[2019-09-18] MEDS: Carvedilol 6.25 MG TAB PO SCH (08:42)
[2019-09-18] MEDS: metFORMIN 500 MG TAB PO SCH ×2 (08:43→21:11)
[2019-09-18] MEDS: Enoxaparin Sodium 120 MG/0.8 ML SYRINGE SC SCH ×2 (08:43→21:10)
[2019-09-18] MEDS: Famotidine 20 MG TAB PO SCH ×2 (08:43→21:11)
[2019-09-18] MEDS: Enoxaparin Sodium 30 MG/0.3 ML SYRINGE SC SCH ×2 (08:43→21:10)
[2019-09-18] MEDS: Tamsulosin HCl 0.4 MG CAP PO SCH (08:43)
[2019-09-18] MEDS: Furosemide 40 MG/4 ML VIAL SLOW IVP SCH (08:44)
[2019-09-18] MEDS: cefTRIAXone\\ROCEPHIN 1 GM in Sodium Chloride 0.9% 100 ML IVPB SCH (09:37)
[2019-09-18] MEDS ORDERED: Digoxin 0.5 MG/2 ML AMP SLOW IVP SCH (11:00)
--- NOTE | 2019-09-18 15:25 | PDOC.CPN ---
- Subjective Date: 09/18/19 Time: 15:55 Interval history: The pt seen and examined. No overnight events. No cardiac complaints. - Objective Allergies/Adverse Reactions: Allergies Allergy/AdvReac Type Severity Reaction Status Date / Time Penicillins Allergy Verified 09/15/19 20:48 Visit Medications: Current Medications Acetaminophen (Tylenol) 650 mg PO Q4H PRN PRN Reason: Headache/Fever/Mild Pain (1-3) Albuterol Sulfate (Proventil Hfa) 2 puff INH Q4HR PRN PRN Reason: SOB/wheezing Albuterol Sulfate (Ventolin) 2.5 mg NEB Q8H PRN PRN Reason: SOB &/or Wheezing Albuterol/Ipratropium (Duoneb) 3 ml NEB [id number] PRN PRN Reason: SOB &/or Wheezing Last Admin: 09/18/19 01:34 Dose: 3 ml Atorvastatin Calcium (Lipitor) 20 mg PO [facility] Last Admin: 09/17/19 20:46 Dose: 20 mg Carvedilol (Coreg) 25 mg PO BID-[facility] Dextrose/Water (Dextrose 50%) 25 gm SLOW IVP PRN PRN PRN Reason: Hypoglycemia Digoxin (Lanoxin) 0.25 mg SLOW IVP 0500,1100,1700,2300 [facility] Stop: 09/18/19 23:01 Digoxin (Lanoxin) 0.125 mg PO DAILY [facility] Enoxaparin Sodium (Lovenox) 120 mg SC 0900,2100 [facility] Last Admin: 09/18/19 08:43 Dose: 120 mg Enoxaparin Sodium (Lovenox) 30 mg SC BID [facility] Last Admin: 09/18/19 08:43 Dose: 30 mg Famotidine (Pepcid) 20 mg PO BID [facility] Last Admin: 09/18/19 08:43 Dose: 20 mg Furosemide (Lasix) 40 mg PO DAILY [facility] Glucagon (Glucagon) 1 mg IM PRN PRN PRN Reason: Hypoglycemia Dextrose/Water (D5w) 1,000 mls @ 0 mls/hr IV .Q0M PRN PRN Reason: Hypoglycemia Insulin Glargine 30 units/ (Miscellaneous Medication) 0.3 mls @ 0 mls/hr SC [facility] Last Admin: 09/17/19 20:48 Dose: 0.3 mls Ceftriaxone Sodium 1 gm/ (Sodium Chloride) 100 mls @ 200 mls/hr IVPB Q24HR [facility] Last Admin: 09/18/19 09:37 Dose: 100 mls Insulin Human Lispro (Humalog) 0 units SC .MILD SLIDING SCALE PRN PRN Reason: Mild Correctional Scale Insulin Human Lispro (Humalog) 0 units SC .BEDTIME SLIDING SC PRN PRN Reason: Bedtime Correctional Scale Metformin HCl (Glucophage) 1,000 mg PO BID [facility] Last Admin: 09/18/19 08:43 Dose: 1,000 mg Sodium Chloride (Flush - Normal Saline) 10 ml IVF Q12HR PRN PRN Reason: Saline Flush Last Admin: 09/18/19 08:44 Dose: 10 ml Sodium Chloride (Flush - Normal Saline) 10 ml IVF PRN PRN PRN Reason: Saline Flush Tamsulosin HCl (Flomax) 0.4 mg PO DAILY [facility] Last Admin: 09/18/19 08:43 Dose: 0.4 mg Vital Signs & Weight: Vital Signs Temp Pulse Resp BP Pulse Ox 09/18/19 15:13 97.9 F 99 18 148/99 H 99 09/18/19 11:42 101 H 09/18/19 11:32 98.0 F 116 H 20 118/70 99 09/18/19 07:35 97.6 F 94 18 141/72 H 96 Weight 348 lb 14.4 oz - Physical Exam General: alert & oriented x3 HEENT: mucus membranes moist Neck: supple neck Cardiac: irregularly regular Extremities: no edema - Labs Result Diagrams: 09/22/19 07:03 09/22/19 07:03 Troponin/CKMB Troponin I Less than 0.010 ng/mL (< 0.028) 09/15/19 16:12 - Telemetry Supraventricular conduction: atrial fibrillation - Assessment/Plan Assessment/Plan: 1. New onset Afib with RVR - Digoxin loading dose was started and Coreg 6.25mg BID; may resume Diltiazem drip; On Lovenox which will transition to Eliquis on discharge. EP consult; 2. Chronic systolic HF with EF 25-30% possible due to hx of Afib - 3. HTN - stable with current med 4. DM type 2 5. HLD 6. CRISTA - stable 7. KAILEY - Strongly recommend to wear Cpap at HS for hx of afib and CMY. 8. COPD with Home O2 2LNC MAR reviewed * Echo on 09/16/2019 with EF 25-30%, mild-mod dilated LA, mild TR, and trace MR Pt. seen and eval. by me. I agree with the A/P by the METAL TRIM ERECTOR. He is confused or has dementia. I do not know if he is capable of wearing a Life-Vest otherwise this would be a consideration due to the decr. EF. I may suggest cardiac cath if he becomes more stable and the renal function is stable. He has not been evaluated for CAD that I can determine and he has multiple risk factors. maria del carmen
[2019-09-18] MEDS: Digoxin 0.5 MG/2 ML AMP SLOW IVP SCH ×2 (16:04→23:34)
[2019-09-18] MEDS: Carvedilol 25 MG TAB PO SCH (16:05)
[2019-09-18] MEDS: Insulin Glargine 30 UNITS in Pre-Filled Syringe SC SCH (21:09)
[2019-09-18] MEDS: Atorvastatin Calcium 20 MG TAB PO SCH (21:20)
--- NOTE | 2019-09-19 05:35 | PDOC.FM ---
"- Subjective Subjective: Pt states the he feels a little more weak and run down today. Pt notes that he normally utilizes oxygen only overnight but has been put on it through the morning today. He is awaiting approval for a CPAP at home. Pt continues to deny any urinary sx. States he is diuresing well and lower extremity edema has improved. - Objective Vital Signs & Weight: Vital Signs (12 hours) Temp Pulse Resp BP BP Pulse Ox 09/19/19 04:00 97.8 F 86 20 125/66 100 09/18/19 23:34 93 09/18/19 23:15 93 20 97 09/18/19 19:45 98.3 F 80 18 111/81 97 Weight Weight 158.258 kg I&O: 09/17/19 09/18/19 09/19/19 06:59 06:59 06:59 Intake Total 1386 1614 960 Output Total 750 2100 Balance 636 -486 960 Result Diagrams: 09/19/19 05:48 09/19/19 05:47 Phys Exam - Physical Examination Constitutional: NAD HEENT: moist MMs Neck: full ROM Respiratory: clear to auscultation bilateral [place] inspiratory phase Irregularly irregulary with normal rate, no extra heart sounds Gastrointestinal: soft, non-tender Musculoskeletal: pulses present Trace pitting edema BLE Neurological: non-focal, moves all 4 limbs Psychiatric: normal affect, A&O x 3 Skin: no rash Dx/Plan (1) Atrial fibrillation Code(s): I48.91 - UNSPECIFIED ATRIAL FIBRILLATION Status: Acute (2) Atrial fibrillation with rapid ventricular response Code(s): I48.91 - UNSPECIFIED ATRIAL FIBRILLATION Status: Resolved (3) Diabetes mellitus Code(s): E11.9 - TYPE 2 DIABETES MELLITUS WITHOUT COMPLICATIONS Status: Acute (4) HTN (hypertension) Code(s): I10 - ESSENTIAL (PRIMARY) HYPERTENSION Status: Acute (5) Obstructive sleep apnea Code(s): G47.33 - OBSTRUCTIVE SLEEP APNEA (ADULT) (PEDIATRIC) Status: Acute - Plan Plan: 79 yo M admitted for heart palpitations: Atrial fibrillation w/ RVR, new onset - Continues to be in atrial fibrillation, rate in the 80s-90s. - Per cardiology: diltiazem discontinued due to HFrEF, Digoxin loaded and transitioned to PO, Coreg increased to 25mg. EP, Dr. Christianson consulted. - [facility]: 5 | HASBLED: 2 - Started on therapeutic lovenox, will transition to Eliquis upon discharge CRISTA vs CRISTA on CKD, resolved - Holding fluids due to CHF. Continue to monitor. - hold allopurinol New Onset CHF vs. CHF exacerbation - ECHO showed EF 25-30% - Strict I/Os - Daily weights - Lasix 40mg BID Simple Cystitis - Rocephin daily, transition to PO on DC for full 7 day course HTN DM BPH - continue home medications Gout - hold allopurinol GERD - hold omeprazole - give pepcid BID while in hospital KAILEY, OHS - morbidly obese - poor air movement, used to sleep w/ CPAP, recommend outpatient sleep study and to restart CPAP therapy. Code: FULL Fluids: none. VTE PPx: lovenox, therapeutic GI PPx: pepcid Disposition/LOS: Telemetry inpatient for continued rate control and cardiac monitoring. LOS > 48 H. Addendum - Attending - Attending Attestation Date/Time: 09/19/19 8544 I personally evaluated the patient and discussed the management with Dr. Montemayor. I agree with the History, Examination, Assessment and Plan documented above with any addition or exceptions noted below. Patient overall stable. He continues on treatment for fluid overload associated with new onset Afib RVR. Continue glycemic control. He will be going for evaluation by EP. Cardiology on board."
[2019-09-19 05:59] LABS: #Basophils 0.1 thou/uL (0.0-0.2); #Eosinphils 0.3 thou/uL (0.0-0.7); #Lymphocytes 2.3 thou/uL (1.20-3.40); #Monocytes 0.7 thou/uL (0.11-0.59); #Neutrophils 5.9 thou/uL (1.40-6.50); %Eosinophils 3.2 % (0.0-10.0); %Lymphocytes 24.5 % (21.0-51.0); %Monocytes 7.1 % (0.0-10.0); %Neutrophils 64.1 % (42.0-75.0); Hemoglobin 13.2 g/dL (14.0-18.0); Mean Corpuscular HGB CONC 30.8 g/dL (32.0-36.0); Mean Platelet Volume 11.1 fL (7.4-10.4); Platelet Count 171 thou/uL (130-400); RBC Distribution Width 13.2 % (11.5-14.5); Red Blood Cell (RBC) Count 4.73 mill/uL (4.70-6.10); White Blood Cell (WBC) Count 9.2 thou/uL (4.8-10.8)
[2019-09-19 06:45] LABS: Chloride 105 mmol/L (98-107); Sodium 137 mmol/L (136-145)
[2019-09-19 06:46] LABS: Calcium 8.4 mg/dL (7.8-10.44); Glucose 98 mg/dL (83-110)
[2019-09-19 06:48] LABS: Carbon Dioxide 20 mmol/L (23-31)
[2019-09-19 06:50] LABS: Calc. Creatinine Clearance 156 mL/min (70-130); Estimated GFR-MDRD 86
[2019-09-19 06:51] LABS: BUN (Urea Nitrogen) 12 mg/dL (8.4-25.7)
[2019-09-19 07:04] LABS: Anion Gap 16 mmol/L (10-20)
[2019-09-19] MEDS: Carvedilol 25 MG TAB PO SCH ×2 (07:59→16:19)
[2019-09-19] MEDS: cefTRIAXone\\ROCEPHIN 1 GM in Sodium Chloride 0.9% 100 ML IVPB SCH (07:59)
[2019-09-19] MEDS: Enoxaparin Sodium 30 MG/0.3 ML SYRINGE SC SCH ×2 (08:00→20:56)
[2019-09-19] MEDS: Tamsulosin HCl 0.4 MG CAP PO SCH (08:00)
[2019-09-19] MEDS: Famotidine 20 MG TAB PO SCH ×2 (08:00→20:56)
[2019-09-19] MEDS: metFORMIN 500 MG TAB PO SCH ×2 (08:00→20:55)
[2019-09-19] MEDS: Digoxin 0.125 MG TAB PO SCH (08:00)
[2019-09-19] MEDS: Enoxaparin Sodium 120 MG/0.8 ML SYRINGE SC SCH ×2 (08:00→20:56)
[2019-09-19] MEDS: Furosemide 40 MG TAB PO SCH (08:00)
--- NOTE | 2019-09-19 12:26 | PDOC.CPN ---
- Subjective Date: 09/19/19 Time: 12:28 Interval history: The pt seen and examined. No overnight events. No cardiac complaints. - Objective Allergies/Adverse Reactions: Allergies Allergy/AdvReac Type Severity Reaction Status Date / Time Penicillins Allergy Verified 09/15/19 20:48 Visit Medications: Current Medications Acetaminophen (Tylenol) 650 mg PO Q4H PRN PRN Reason: Headache/Fever/Mild Pain (1-3) Albuterol Sulfate (Proventil Hfa) 2 puff INH Q4HR PRN PRN Reason: SOB/wheezing Albuterol Sulfate (Ventolin) 2.5 mg NEB Q8H PRN PRN Reason: SOB &/or Wheezing Albuterol/Ipratropium (Duoneb) 3 ml NEB [id number] PRN PRN Reason: SOB &/or Wheezing Last Admin: 09/19/19 09:44 Dose: 3 ml Atorvastatin Calcium (Lipitor) 20 mg PO [facility] Last Admin: 09/18/19 21:20 Dose: 20 mg Carvedilol (Coreg) 25 mg PO BID-[facility] Last Admin: 09/19/19 07:59 Dose: 25 mg Dextrose/Water (Dextrose 50%) 25 gm SLOW IVP PRN PRN PRN Reason: Hypoglycemia Digoxin (Lanoxin) 0.125 mg PO DAILY [facility] Last Admin: 09/19/19 08:00 Dose: 0.125 mg Enoxaparin Sodium (Lovenox) 120 mg SC 0900,2100 [facility] Last Admin: 09/19/19 08:00 Dose: 120 mg Enoxaparin Sodium (Lovenox) 30 mg SC BID [facility] Last Admin: 09/19/19 08:00 Dose: 30 mg Famotidine (Pepcid) 20 mg PO BID [facility] Last Admin: 09/19/19 08:00 Dose: 20 mg Furosemide (Lasix) 40 mg PO DAILY [facility] Last Admin: 09/19/19 08:00 Dose: 40 mg Glucagon (Glucagon) 1 mg IM PRN PRN PRN Reason: Hypoglycemia Dextrose/Water (D5w) 1,000 mls @ 0 mls/hr IV .Q0M PRN PRN Reason: Hypoglycemia Insulin Glargine 30 units/ (Miscellaneous Medication) 0.3 mls @ 0 mls/hr SC [facility] Last Admin: 09/18/19 21:09 Dose: 0.3 mls Ceftriaxone Sodium 1 gm/ (Sodium Chloride) 100 mls @ 200 mls/hr IVPB Q24HR [facility] Last Admin: 09/19/19 07:59 Dose: 100 mls Insulin Human Lispro (Humalog) 0 units SC .MILD SLIDING SCALE PRN PRN Reason: Mild Correctional Scale Insulin Human Lispro (Humalog) 0 units SC .BEDTIME SLIDING SC PRN PRN Reason: Bedtime Correctional Scale Metformin HCl (Glucophage) 1,000 mg PO BID [facility] Last Admin: 09/19/19 08:00 Dose: 1,000 mg Sodium Chloride (Flush - Normal Saline) 10 ml IVF Q12HR PRN PRN Reason: Saline Flush Last Admin: 09/18/19 08:44 Dose: 10 ml Sodium Chloride (Flush - Normal Saline) 10 ml IVF PRN PRN PRN Reason: Saline Flush Tamsulosin HCl (Flomax) 0.4 mg PO DAILY [facility] Last Admin: 09/19/19 08:00 Dose: 0.4 mg Vital Signs & Weight: Vital Signs Temp Pulse Resp BP BP BP Pulse Ox 09/19/19 11:03 98.1 F 88 18 125/83 98 09/19/19 09:44 89 20 97 09/19/19 07:58 99 09/19/19 07:54 98.4 F 89 18 134/91 H 99 09/19/19 04:00 97.8 F 86 20 125/66 100 Weight 337 lb 8 oz - Physical Exam General: alert & oriented x3 HEENT: mucus membranes moist Neck: supple neck Cardiac: irregularly regular Lungs: decreased breath sounds Extremities: other: (3+ pitting BLE edema) - Labs Result Diagrams: 09/22/19 07:03 09/22/19 07:03 Troponin/CKMB Troponin I Less than 0.010 ng/mL (< 0.028) 09/15/19 16:12 - Telemetry Supraventricular conduction: atrial fibrillation - Assessment/Plan Assessment/Plan: 1. New onset Afib with RVR - well controlled HR with Digoxin and Coreg 25mg BID ; On Lovenox which will transition to Eliquis on discharge. EP consult; 2. Chronic systolic HF with EF 25-30% possible due to hx of Afib - On BBlocker and Lasix; possible cardiac cath if he is more stable and stable renal function 3. HTN - stable with current med 4. DM type 2 5. HLD 6. CRISTA - stable 7. KAILEY - Strongly recommend to wear Cpap at HS for hx of afib and CMY. 8. COPD with Home O2 2LNC MAR reviewed * Echo on 09/16/2019 with EF 25-30%, mild-mod dilated LA, mild TR, and trace MR Pt. seen and eval. by me. I agree with the A/P by the NURSE AUDITOR.EP assisting with case. Chest clear anteriorly. Irreg/irreg.
[2019-09-19] MEDS: Atorvastatin Calcium 40 MG TAB PO SCH (20:56)
[2019-09-19] MEDS: Insulin Glargine 30 UNITS in Pre-Filled Syringe SC SCH (20:57)
--- NOTE | 2019-09-19 22:01 | CON ---
DATE OF CONSULTATION: 09/19/2019 REFERRING PHYSICIAN: Gaby Jj MD HISTORY OF PRESENT ILLNESS: I am seeing Mr. 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 His problems are, 1. Newly found atrial fibrillation with rapid ventricular rates. a. Now with controlled ventricular rates on diltiazem and beta raj. b. On Lovenox for anticoagulation. 2. Newly found nonischemic cardiomyopathy. a. History of normal LVEF at 50% to 55% in October 2018, worsening to 25% to 30% on current admission. 3. Urinary tract infection, on antibiotics. 4. Morbid obesity. 5. Type 2 diabetes and hypertension. 6. History of hemorrhoids. 7. History of COPD. ALLERGIES: PENICILLINS. MEDICATIONS: At home included, 1. Metformin. 2. Hydrochlorothiazide. 3. Furosemide. 4. Glipizide. 5. Omeprazole. 6. Allopurinol. 7. Tamsulosin. 8. Lipitor. 9. Albuterol sulfate. 10. Carvedilol. 11. Levalbuterol. SUBJECTIVE: Mr. Hogan is here with progressive dyspnea and lower extremity edema, were the initial symptoms. Also, he felt his heart racing. He was diagnosed with atrial fibrillation and CHF exacerbation on and got admitted to the hospital. He has improved with some diuretics. Also, the rates are better controlled now. His palpitation has subsided. He does not pass out. No stroke-like symptoms. No neurological deficits. Denies angina-like symptoms. No fever or chills are noted. Rest of 12-point system otherwise unremarkable. PAST MEDICAL HISTORY: As above. He does mention about a similar episode six months ago, at which point, he was re-evaluated in [place] records on the chart. SOCIAL HISTORY: Smoked, but secondhand smoking he claims. Denies EtOH or drug abuse. He did have some EtOH problem issues in the remote past. FAMILY HISTORY: Significant for diabetes. PAST SURGICAL HISTORY: Significant for hemorrhoidectomy in age 29. OBJECTIVE DATA: VITAL SIGNS: The blood pressure is 118/81, heart rate 108, respirations 20, and temperature 98.2 degrees Fahrenheit. GENERAL: A morbidly obese man, in no apparent distress. NECK: Supple. Jugular veins difficult to evaluate. CHEST: Coarse without crackles. HEART: Irregularly irregular. S1 and S2 are variable. No murmur or gallop. ABDOMEN: Benign. Bowel sounds positive. EXTREMITIES: Lower extremity with 2+ lower extremity edema. Chronic venous stasis as noted. Pulses are diminished. NEUROLOGIC: The patient is nonfocal. MUSCULOSKELETAL: Without joint swelling or deformity. SKIN: Without rash. DATABASE: EKG is reviewed, revealing initially atrial fibrillation with rates of 116 beats per minute, narrow QRS is seen, QTc 458 milliseconds. Subsequent EKGs revealed continued atrial fibrillation with variable AV conduction and no major pauses. No significant ventricular arrhythmia is noted. LABORATORY DATA: White cell count 9.2, hemoglobin 13.2, platelet count is 171. Sodium 137, potassium 4, BUN is 12, and creatinine 0.86. The troponin levels are 0.01 on admission. The BNP is 179 on admit. The chest x-ray on 09/15/2019 reveals no acute cardiopulmonary process. ASSESSMENT AND PLAN: Mr. Hogan is a 79-year-old man with history of obesity, hypertension, diabetes, who has palpitations. This is newly found and caused some dyspnea, although he does not appear to be significant fluid overloaded based on his baseline BNP. Now his rates are better controlled. He was started on anticoagulation. His LVEF found to be severely depressed. I initiated care including rate control. As he has reduced LVEF, beta blockers are preferred over calcium channel blockers. Nevertheless, I am expecting his EF has some chance to recover in strength after adequate rate control is instituted. For now, I would continue rate controlling strategy and start on oral anticoagulation. He may benefit from attempted cardioversion in 3 to 4 weeks after the chance for left atrial appendage thrombus is lower. If indeed he is of questionable compliance, YAQUELIN may be indicated at that time. Repeat echocardiogram once he comes after adequate rate control. Should he continue to have recurrence, he may benefit from antiarrhythmic agent depending on the follow up LV systolic function, most likely amiodarone or Tikosyn could be a consideration. Should he remain here with severely reduced LVEF after 3 months of adequate therapy, he may be considered for ICD implant. These plans were discussed with the patient and Dr. Jj. We will have to follow him in the hospital. Job ID: [id number] [facility]
--- NOTE | 2019-09-20 06:13 | PDOC.FM ---
"- Subjective Subjective: Pt states that he feels much better this morning, less weak and more energy. He only tolerated CPAP last night for a few hours. States he lives at home by himself with home health visiting and also lives next door to his daughter who helps him out. - Objective Vital Signs & Weight: Vital Signs (12 hours) Temp Pulse Resp BP BP Pulse Ox 09/20/19 03:11 98.4 F 91 18 131/87 100 09/19/19 20:00 97.7 F 84 20 131/75 97 Weight Weight 153.768 kg I&O: 09/18/19 09/19/19 09/20/19 06:59 06:59 06:59 Intake Total 1614 1320 1300 Output Total 2100 1800 1305 Balance -486 -480 -5 Result Diagrams: 09/19/19 05:48 09/19/19 05:47 Phys Exam - Physical Examination Constitutional: NAD HEENT: moist MMs Neck: full ROM Poor inspiratory effort, clear breath sounds irregularly irregular, no extra heart sounds Gastrointestinal: soft, non-tender, positive bowel sounds Musculoskeletal: no edema, pulses present Neurological: non-focal, moves all 4 limbs Psychiatric: normal affect, A&O x 3 Skin: no rash, cap refill <2 seconds Dx/Plan (1) Atrial fibrillation Code(s): I48.91 - UNSPECIFIED ATRIAL FIBRILLATION Status: Acute (2) Atrial fibrillation with rapid ventricular response Code(s): I48.91 - UNSPECIFIED ATRIAL FIBRILLATION Status: Resolved (3) Diabetes mellitus Code(s): E11.9 - TYPE 2 DIABETES MELLITUS WITHOUT COMPLICATIONS Status: Acute (4) HTN (hypertension) Code(s): I10 - ESSENTIAL (PRIMARY) HYPERTENSION Status: Acute (5) Obstructive sleep apnea Code(s): G47.33 - OBSTRUCTIVE SLEEP APNEA (ADULT) (PEDIATRIC) Status: Acute - Plan Plan: Atrial fibrillation w/ RVR, new onset - Continues to be in atrial fibrillation, rate in the 80s-90s. Did go into RVR for short period of time yesterday. - Per cardiology: diltiazem discontinued due to HFrEF, Digoxin loaded and transitioned to PO, Coreg increased to 25mg. - consider cardiac cath in the future if pt remains stable - EP, Dr. Christianson consulted: agreed with anticoagulation and rate control strategies with plan for possible attempt at cardioversion in 3-4 weeks - If unsuccesful may necessitate pacemaker placement - CHADSVASC: 5 | HASBLED: 2 - Started on therapeutic lovenox, will transition to Eliquis upon discharge CRISTA vs CRISTA on CKD, resolved New Onset CHF vs. CHF exacerbation - ECHO showed EF 25-30% - Strict I/Os - Daily weights - down 5 lbs from admission - Home Lasix 40mg Simple Cystitis - Rocephin daily, transition to PO on DC for full 7 day course DM - Started 30u lantus insulin - Continue home metformin 1000 BID - Glycemic control much improved with basal insulin HTN BPH - continue home medications Gout - hold allopurinol GERD - hold omeprazole - give pepcid BID while in hospital KAILEY, OHS - morbidly obese - poor air movement, used to sleep w/ CPAP, recommend outpatient sleep study and to restart CPAP therapy. Code: FULL Fluids: none. VTE PPx: lovenox, therapeutic GI PPx: pepcid Disposition/LOS: Telemetry inpatient for continued rate control and cardiac monitoring. LOS > 48 H. Addendum - Attending - Attending Attestation Date/Time: 09/20/19 4451 I personally evaluated the patient and discussed the management with Dr. Montemayor. I agree with the History, Examination, Assessment and Plan documented above with any addition or exceptions noted below. Patient continues to improve. Continue with diuresis. He was rate controlled on Digoxin but had recurrence of RVR overnight. EP and Cardiology on board, awaiting further recs. Will work on possible placement in SNF as he seems unable to care for himself at the current time and would benefit from therapy services and med assistance."
[2019-09-20] MEDS: cefTRIAXone\\ROCEPHIN 1 GM in Sodium Chloride 0.9% 100 ML IVPB SCH (09:59)
[2019-09-20] MEDS: Enoxaparin Sodium 120 MG/0.8 ML SYRINGE SC SCH ×2 (10:00→20:40)
[2019-09-20] MEDS: Tamsulosin HCl 0.4 MG CAP PO SCH (10:02)
[2019-09-20] MEDS: Furosemide 40 MG TAB PO SCH (10:02)
[2019-09-20] MEDS: Enoxaparin Sodium 30 MG/0.3 ML SYRINGE SC SCH ×2 (10:02→20:40)
[2019-09-20] MEDS: metFORMIN 500 MG TAB PO SCH ×2 (10:02→20:39)
[2019-09-20] MEDS: Digoxin 0.125 MG TAB PO SCH (10:02)
[2019-09-20] MEDS: Carvedilol 25 MG TAB PO SCH ×2 (10:03→17:26)
[2019-09-20] MEDS: Famotidine 20 MG TAB PO SCH ×2 (10:03→20:39)
--- NOTE | 2019-09-20 10:28 | EKG ---
Test Reason : REPEAT Blood Pressure : / mmHG Vent. Rate : 083 BPM Atrial Rate : 080 BPM P-R Int : 000 ms QRS Dur : 096 ms QT Int : 432 ms P-R-T Axes : 000 022 003 degrees QTc Int : 507 ms Atrial fibrillation Nonspecific ST and T wave abnormality Abnormal ECG No previous ECGs available Confirmed by BELLO MIMS (2) on 09/20/2019 10:28:00 AM Referred By: Dung ZUÑIGA Confirmed By:BELLO MIMS
--- NOTE | 2019-09-20 14:17 | PDOC.CPN ---
- Subjective Date: 09/20/19 Time: 14:16 Interval history: The pt seen and examined. No overnight events. No cardiac complaints. He worn Cpap for 3 hrs last night. - Objective Allergies/Adverse Reactions: Allergies Allergy/AdvReac Type Severity Reaction Status Date / Time Penicillins Allergy Verified 09/15/19 20:48 Visit Medications: Current Medications Acetaminophen (Tylenol) 650 mg PO Q4H PRN PRN Reason: Headache/Fever/Mild Pain (1-3) Albuterol Sulfate (Proventil Hfa) 2 puff INH Q4HR PRN PRN Reason: SOB/wheezing Albuterol Sulfate (Ventolin) 2.5 mg NEB Q8H PRN PRN Reason: SOB &/or Wheezing Albuterol/Ipratropium (Duoneb) 3 ml NEB [id number] PRN PRN Reason: SOB &/or Wheezing Last Admin: 09/19/19 09:44 Dose: 3 ml Atorvastatin Calcium (Lipitor) 40 mg PO [facility] Last Admin: 09/19/19 20:56 Dose: 40 mg Carvedilol (Coreg) 25 mg PO BID-[facility] Last Admin: 09/20/19 10:03 Dose: 25 mg Dextrose/Water (Dextrose 50%) 25 gm SLOW IVP PRN PRN PRN Reason: Hypoglycemia Digoxin (Lanoxin) 0.125 mg PO DAILY [facility] Last Admin: 09/20/19 10:02 Dose: 0.125 mg Enoxaparin Sodium (Lovenox) 120 mg SC 0900,2100 [facility] Last Admin: 09/20/19 10:00 Dose: 120 mg Enoxaparin Sodium (Lovenox) 30 mg SC BID [facility] Last Admin: 09/20/19 10:02 Dose: 30 mg Famotidine (Pepcid) 20 mg PO BID [facility] Last Admin: 09/20/19 10:03 Dose: 20 mg Furosemide (Lasix) 40 mg PO DAILY [facility] Last Admin: 09/20/19 10:02 Dose: 40 mg Glucagon (Glucagon) 1 mg IM PRN PRN PRN Reason: Hypoglycemia Dextrose/Water (D5w) 1,000 mls @ 0 mls/hr IV .Q0M PRN PRN Reason: Hypoglycemia Insulin Glargine 30 units/ (Miscellaneous Medication) 0.3 mls @ 0 mls/hr SC [facility] Last Admin: 09/19/19 20:57 Dose: 0.3 mls Ceftriaxone Sodium 1 gm/ (Sodium Chloride) 100 mls @ 200 mls/hr IVPB Q24HR [facility] Stop: 09/22/19 23:59 Last Admin: 09/20/19 09:59 Dose: 100 mls Insulin Human Lispro (Humalog) 0 units SC .MILD SLIDING SCALE PRN PRN Reason: Mild Correctional Scale Insulin Human Lispro (Humalog) 0 units SC .BEDTIME SLIDING SC PRN PRN Reason: Bedtime Correctional Scale Metformin HCl (Glucophage) 1,000 mg PO BID [facility] Last Admin: 09/20/19 10:02 Dose: 1,000 mg Sodium Chloride (Flush - Normal Saline) 10 ml IVF Q12HR PRN PRN Reason: Saline Flush Last Admin: 09/20/19 10:03 Dose: 10 ml Sodium Chloride (Flush - Normal Saline) 10 ml IVF PRN PRN PRN Reason: Saline Flush Tamsulosin HCl (Flomax) 0.4 mg PO DAILY [facility] Last Admin: 09/20/19 10:02 Dose: 0.4 mg Vital Signs & Weight: Vital Signs Temp Pulse Resp BP BP BP Pulse Ox 09/20/19 11:10 97.8 F 111 H 20 129/97 H 98 09/20/19 10:02 84 09/20/19 08:00 97.4 F L 84 20 137/99 H 98 09/20/19 03:11 98.4 F 91 18 131/87 100 Weight 339 lb - Physical Exam General: alert & oriented x3 Neck: supple neck Cardiac: irregularly regular Lungs: decreased breath sounds - Labs Result Diagrams: 09/22/19 07:03 09/22/19 07:03 Troponin/CKMB Troponin I Less than 0.010 ng/mL (< 0.028) 09/15/19 16:12 - Telemetry Supraventricular conduction: atrial fibrillation - Assessment/Plan Assessment/Plan: 1. New onset Afib with RVR - well controlled HR with Digoxin and Coreg 25mg BID ; On Lovenox which will transition to Eliquis on discharge.Appreciate EP input. ; 2. Chronic systolic HF with EF 25-30% possible due to hx of Afib - On BBlocker and Lasix; possible cardiac cath if he is more stable and stable renal function 3. HTN - stable with current med 4. DM type 2 5. HLD 6. CRISTA - stable 7. KAILEY - Strongly recommend to wear Cpap at HS for hx of afib and CMY. 8. COPD with Home O2 2LNC MAR reviewed * Echo on 09/16/2019 with EF 25-30%, mild-mod dilated LA, mild TR, and trace MR Pt. seen and eval. by me. I agree with the A/P by the [employer]. agree with EP, decr. EF may be due to tachycardia. After 1 month of anticoagulation then attempt cardioversion. maria del carmen
--- NOTE | 2019-09-20 16:34 | PDOC.EP ---
- Subjective Date: 09/20/19 Time: 08:00 Interval History: Feeling fair today. Strength is returning. No cardiac events overnight. No evident bleeding either - Objective Allergies/Adverse Reactions: Allergies Allergy/AdvReac Type Severity Reaction Status Date / Time Penicillins Allergy Verified 09/15/19 20:48 Current Medications Acetaminophen (Tylenol) 650 mg PO Q4H PRN PRN Reason: Headache/Fever/Mild Pain (1-3) Albuterol Sulfate (Proventil Hfa) 2 puff INH Q4HR PRN PRN Reason: SOB/wheezing Albuterol Sulfate (Ventolin) 2.5 mg NEB Q8H PRN PRN Reason: SOB &/or Wheezing Albuterol/Ipratropium (Duoneb) 3 ml NEB [id number] PRN PRN Reason: SOB &/or Wheezing Last Admin: 09/19/19 09:44 Dose: 3 ml Atorvastatin Calcium (Lipitor) 40 mg PO [facility] Last Admin: 09/19/19 20:56 Dose: 40 mg Carvedilol (Coreg) 25 mg PO BID-[facility] Last Admin: 09/20/19 10:03 Dose: 25 mg Dextrose/Water (Dextrose 50%) 25 gm SLOW IVP PRN PRN PRN Reason: Hypoglycemia Digoxin (Lanoxin) 0.125 mg PO DAILY [facility] Last Admin: 09/20/19 10:02 Dose: 0.125 mg Enoxaparin Sodium (Lovenox) 120 mg SC 0900,2100 [facility] Last Admin: 09/20/19 10:00 Dose: 120 mg Enoxaparin Sodium (Lovenox) 30 mg SC BID [facility] Last Admin: 09/20/19 10:02 Dose: 30 mg Famotidine (Pepcid) 20 mg PO BID [facility] Last Admin: 09/20/19 10:03 Dose: 20 mg Furosemide (Lasix) 40 mg PO DAILY [facility] Last Admin: 09/20/19 10:02 Dose: 40 mg Glucagon (Glucagon) 1 mg IM PRN PRN PRN Reason: Hypoglycemia Dextrose/Water (D5w) 1,000 mls @ 0 mls/hr IV .Q0M PRN PRN Reason: Hypoglycemia Insulin Glargine 30 units/ (Miscellaneous Medication) 0.3 mls @ 0 mls/hr SC [facility] Last Admin: 09/19/19 20:57 Dose: 0.3 mls Ceftriaxone Sodium 1 gm/ (Sodium Chloride) 100 mls @ 200 mls/hr IVPB Q24HR [facility] Stop: 09/22/19 23:59 Last Admin: 09/20/19 09:59 Dose: 100 mls Insulin Human Lispro (Humalog) 0 units SC .MILD SLIDING SCALE PRN PRN Reason: Mild Correctional Scale Insulin Human Lispro (Humalog) 0 units SC .BEDTIME SLIDING SC PRN PRN Reason: Bedtime Correctional Scale Metformin HCl (Glucophage) 1,000 mg PO BID [facility] Last Admin: 09/20/19 10:02 Dose: 1,000 mg Sodium Chloride (Flush - Normal Saline) 10 ml IVF Q12HR PRN PRN Reason: Saline Flush Last Admin: 09/20/19 10:03 Dose: 10 ml Sodium Chloride (Flush - Normal Saline) 10 ml IVF PRN PRN PRN Reason: Saline Flush Tamsulosin HCl (Flomax) 0.4 mg PO DAILY [facility] Last Admin: 09/20/19 10:02 Dose: 0.4 mg Vital Signs & Weight: Vital Signs Temp Pulse Pulse Resp BP BP BP 09/20/19 15:20 99 F 84 19 130/75 09/20/19 11:30 85 123/83 09/20/19 11:10 97.8 F 111 H 20 129/97 H 09/20/19 10:02 84 09/20/19 08:00 97.4 F L 84 20 137/99 H Pulse Ox 09/20/19 15:20 99 09/20/19 11:30 09/20/19 11:10 98 09/20/19 10:02 09/20/19 08:00 98 Weight 339 lb I/O: I/O 09/19/19 09/20/19 09/21/19 06:59 06:59 06:59 Intake Total 1320 1300 Output Total 1800 1305 Balance -480 -5 - Labs Result Diagrams: 09/19/19 05:48 09/19/19 05:47 - Assessment/Plan Assessment/Plan: 1. Newly found atrial fibrillation with rapid ventricular rates. a. Now with controlled ventricular rates on diltiazem and beta raj. b. On Lovenox for anticoagulation. 2. 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 a. History of normal LVEF at 50% to 55% in October 2018, worsening to 25% to 30% on current admission. b. possibly tachycardia mediated 3. Urinary tract infection, on antibiotics. 4. Morbid obesity. 5. Type 2 diabetes and hypertension. 6. History of hemorrhoids. 7. History of COPD. Rate controlled. Continue OAC. Consider CV after 30 days OAC. Cardiology to follow EF. Consider ICD in future if EF remains <35% after 3 months.
[2019-09-20] MEDS: Atorvastatin Calcium 40 MG TAB PO SCH (20:39)
[2019-09-20] MEDS: Insulin Glargine 30 UNITS in Pre-Filled Syringe SC SCH (20:40)
--- NOTE | 2019-09-21 05:43 | PDOC.FM ---
"- Subjective Subjective: Pt is feeling well this morning. States his energy and strength have all improved. Spoke with CM yesterday and refused placement anywhere. Has support in place at home. 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 - Objective Vital Signs & Weight: Vital Signs (12 hours) Temp Pulse Resp BP BP Pulse Ox 09/21/19 03:12 97.4 F L 89 17 127/74 100 09/20/19 20:00 97.9 F 87 18 136/64 99 09/20/19 19:20 96 20 94 L Weight Weight 154.42 kg I&O: 09/19/19 09/20/19 09/21/19 06:59 06:59 06:59 Intake Total 1320 1300 1375 Output Total 1800 1305 1775 Balance -480 -5 -400 Result Diagrams: 09/19/19 05:48 09/19/19 05:47 Phys Exam - Physical Examination Constitutional: NAD HEENT: moist MMs, sclera anicteric Neck: full ROM poor inspiratory effort. breath sounds clear irregularly irregular rhythm, nml rate, no extra heart sounds Gastrointestinal: soft, non-tender Musculoskeletal: no edema, pulses present Neurological: non-focal, moves all 4 limbs Psychiatric: normal affect, A&O x 3 Skin: no rash, cap refill <2 seconds Dx/Plan (1) Atrial fibrillation Code(s): I48.91 - UNSPECIFIED ATRIAL FIBRILLATION Status: Acute (2) Atrial fibrillation with rapid ventricular response Code(s): I48.91 - UNSPECIFIED ATRIAL FIBRILLATION Status: Resolved (3) Diabetes mellitus Code(s): E11.9 - TYPE 2 DIABETES MELLITUS WITHOUT COMPLICATIONS Status: Acute (4) HTN (hypertension) Code(s): I10 - ESSENTIAL (PRIMARY) HYPERTENSION Status: Acute (5) Obstructive sleep apnea Code(s): G47.33 - OBSTRUCTIVE SLEEP APNEA (ADULT) (PEDIATRIC) Status: Acute - Plan Plan: Atrial fibrillation w/ RVR, new onset - Continues to be in atrial fibrillation, rate in the 80s-90s. Did go into RVR for short period of time yesterday. - Per cardiology: diltiazem discontinued due to HFrEF, Digoxin loaded and transitioned to PO, Coreg increased to 25mg. - consider cardiac cath in the future if pt remains stable - EP, Dr. Christianson consulted: agreed with anticoagulation and rate control strategies with plan for possible attempt at cardioversion in 3-4 weeks - If unsuccesful may necessitate pacemaker placement - CHADSVASC: 5 | HASBLED: 2 - Started on therapeutic lovenox, will transition to Eliquis today - Will discuss with cards today to confirm they are not planning any procedure during this stay, otherwise pt is stable for DC as he has refused any placement in rehab or SNF care. Has HH in place and lives next door to his daughter who is available to assist in his care. CRISTA vs CRISTA on CKD, resolved New Onset CHF - ECHO showed EF 25-30% - cardiology feels reduced EF is likely due to tachycardia, may resolve with rate control/cardioversion - Strict I/Os - Daily weights - down 5 lbs from admission - Home Lasix 40mg Simple Cystitis - Rocephin daily, transition to PO after morning dose DM - Started 30u lantus insulin - pt refused last night - Continue home metformin 1000 BID - Glycemic control much improved with basal insulin HTN BPH - continue home medications Gout - hold allopurinol GERD - hold omeprazole - give pepcid BID while in hospital KAILEY, OHS - morbidly obese - poor air movement, used to sleep w/ CPAP, recommend outpatient sleep study and to restart CPAP therapy. Code: FULL Fluids: none. VTE PPx: lovenox, therapeutic GI PPx: pepcid Disposition/LOS: Telemetry inpatient. Possible DC today. Addendum - Attending - Attending Attestation Date/Time: 09/21/19 [id number] I personally evaluated the patient and discussed the management with Dr. Montemayor. I agree with the History, Examination, Assessment and Plan documented above with any addition or exceptions noted below. Patient doing well. Off O2 at night. On home diuresis regimen. Cardiology plans for further workup/treatment outpatient. He is rate controlled on current meds. Will attempt to update daughter as patient refuses rehab or SNF. If no further cardiology input, should be stable for discharge either today or tomorrow."
[2019-09-21] MEDS: Carvedilol 25 MG TAB PO SCH ×2 (08:49→16:58)
[2019-09-21] MEDS: cefTRIAXone\\ROCEPHIN 1 GM in Sodium Chloride 0.9% 100 ML IVPB SCH (08:50)
[2019-09-21] MEDS: Famotidine 20 MG TAB PO SCH ×2 (08:51→20:55)
[2019-09-21] MEDS: Furosemide 40 MG TAB PO SCH (08:51)
[2019-09-21] MEDS: Tamsulosin HCl 0.4 MG CAP PO SCH (08:51)
[2019-09-21] MEDS: Digoxin 0.125 MG TAB PO SCH (08:51)
[2019-09-21] MEDS: metFORMIN 500 MG TAB PO SCH ×2 (08:51→20:55)
[2019-09-21] MEDS: Apixaban 5 MG TAB PO SCH ×2 (09:10→20:55)
--- NOTE | 2019-09-21 09:59 | PDOC.EP ---
- Subjective Date: 09/21/19 Time: 09:57 Interval History: Possible DC today. Feels stronger than day before. No cardiac concerns/ complaints and no events overnight. - Review of Systems Constitutional: denies: chills, fever, malaise, sweats, weakness, other Respiratory: denies: cough, dry, hemoptysis, pleuritic pain, shortness of breath , SOB with excertion, sputum, wheezing, other Cardiology: denies: chest pain, edema, heart racing, light headedness, passing out Gastrointestinal: denies: abdominal pain, constipation, diarrhea - Objective Allergies/Adverse Reactions: Allergies Allergy/AdvReac Type Severity Reaction Status Date / Time Penicillins Allergy Verified 09/15/19 20:48 Current Medications Acetaminophen (Tylenol) 650 mg PO Q4H PRN PRN Reason: Headache/Fever/Mild Pain (1-3) Albuterol Sulfate (Proventil Hfa) 2 puff INH Q4HR PRN PRN Reason: SOB/wheezing Albuterol Sulfate (Ventolin) 2.5 mg NEB Q8H PRN PRN Reason: SOB &/or Wheezing Albuterol/Ipratropium (Duoneb) 3 ml NEB [id number] PRN PRN Reason: SOB &/or Wheezing Last Admin: 09/20/19 19:20 Dose: 3 ml Apixaban (Eliquis) 5 mg PO BID [facility] Last Admin: 09/21/19 09:10 Dose: 5 mg Atorvastatin Calcium (Lipitor) 40 mg PO HS [facility] Last Admin: 09/20/19 20:39 Dose: 40 mg Carvedilol (Coreg) 25 mg PO BID[facility] Last Admin: 09/21/19 08:49 Dose: 25 mg Dextrose/Water (Dextrose 50%) 25 gm SLOW IVP PRN PRN PRN Reason: Hypoglycemia Digoxin (Lanoxin) 0.125 mg PO DAILY [facility] Last Admin: 09/21/19 08:51 Dose: 0.125 mg Famotidine (Pepcid) 20 mg PO BID [facility] Last Admin: 09/21/19 08:51 Dose: 20 mg Furosemide (Lasix) 40 mg PO DAILY [facility] Last Admin: 09/21/19 08:51 Dose: 40 mg Glucagon (Glucagon) 1 mg IM PRN PRN PRN Reason: Hypoglycemia Dextrose/Water (D5w) 1,000 mls @ 0 mls/hr IV .Q0M PRN PRN Reason: Hypoglycemia Insulin Glargine 30 units/ (Miscellaneous Medication) 0.3 mls @ 0 mls/hr SC HS [facility] Last Admin: 09/20/19 20:40 Dose: Not Given Ceftriaxone Sodium 1 gm/ (Sodium Chloride) 100 mls @ 200 mls/hr IVPB Q24HR [facility] Stop: 09/22/19 23:59 Last Admin: 09/21/19 08:50 Dose: 100 mls Insulin Human Lispro (Humalog) 0 units SC .MILD SLIDING SCALE PRN PRN Reason: Mild Correctional Scale Insulin Human Lispro (Humalog) 0 units SC .BEDTIME SLIDING SC PRN PRN Reason: Bedtime Correctional Scale Metformin HCl (Glucophage) 1,000 mg PO BID [facility] Last Admin: 09/21/19 08:51 Dose: 1,000 mg Sodium Chloride (Flush - Normal Saline) 10 ml IVF Q12HR PRN PRN Reason: Saline Flush Last Admin: 09/20/19 10:03 Dose: 10 ml Sodium Chloride (Flush - Normal Saline) 10 ml IVF PRN PRN PRN Reason: Saline Flush Tamsulosin HCl (Flomax) 0.4 mg PO DAILY [facility] Last Admin: 09/21/19 08:51 Dose: 0.4 mg Vital Signs & Weight: Vital Signs Temp Pulse Resp BP Pulse Ox 09/21/19 07:34 97.7 F 85 18 134/94 H 100 09/21/19 03:12 97.4 F L 89 17 127/74 100 Weight 340 lb 7 oz I/O: I/O 09/20/19 09/21/19 09/22/19 06:59 06:59 06:59 Intake Total 1300 1375 Output Total 1305 1775 Balance -5 -400 - Quality Measures Condition: Atrial Fibrillation/Flutter (hx or current) CV meds: Eliquis: Yes - Physical Exam General: alert & oriented x3, appears well, no apparent distress, speech clear, affect appropriate HEENT: mucus membranes moist, normocephaly Neck: supple neck, midline trachea, no JVD/HJR, no masses, no bruit, no lymphadenopathy, no thromegaly Cardiology: no murmur, regular rate, PMI nondisplaced, irregularly irregular Lungs: clear to auscultation, no wheeze, rales, rhonchi Neurology: cranial nerve 2-12 intact, grossly intact, no lateralizing findings Abdomen: unremarkable, soft, no pulsations/bruits, no hepatosplenomegaly Extremities: dry, strong pulses, warm - Chadsvasc Risk factors Congestive heart failure: 1 Hypertension: 1 Age >75: 2 Diabetes mellitus: 1 Risk Score: 5 - Labs Result Diagrams: 09/19/19 05:48 09/19/19 05:47 - EKG Interpretation EKG shows: Atrial fibrillation - Assessment/Plan Assessment/Plan: 1. Newly found atrial fibrillation with rapid ventricular rates. a. Now with controlled ventricular rates on Coreg 25mg BID and dig 125mcg QD b. On Lovenox for anticoagulation.Switch to Eliquis 5mg BID 2. 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 a. History of normal LVEF at 50% to 55% in October 2018, worsening to 25% to 30% on current admission. b. Unknown etiology, possibly tachycardia mediated. 3. Urinary tract infection, on antibiotics. 4. Morbid obesity. 5. Type 2 diabetes and hypertension. 6. History of hemorrhoids. 7. History of COPD. Poor rate control. increased digoxin. Switch to Eliquis for OAC. Consider CV after 30 days OAC vs initiation of AAD therapy then CV. Ultimately he may require AV node ablation with BiV pacing support. Cardiology to follow EF. Consider primary prevention ICD in future if EF remains <35% after 3 months of optimized medical management.
[2019-09-21] MEDS ORDERED: Metoprolol Tartrate 5 MG/5 ML VIAL IVP PRN (11:01)
[2019-09-21] MEDS ORDERED: Digoxin 0.5 MG/2 ML AMP SLOW IVP SCH (12:30)
--- NOTE | 2019-09-21 13:17 | PDOC.CPN ---
- Subjective Date: 09/21/19 Time: 13:21 Interval history: The pt seen and examined. No overnight events. No cardiac complaints. - Objective Allergies/Adverse Reactions: Allergies Allergy/AdvReac Type Severity Reaction Status Date / Time Penicillins Allergy Verified 09/15/19 20:48 Visit Medications: Current Medications Acetaminophen (Tylenol) 650 mg PO Q4H PRN PRN Reason: Headache/Fever/Mild Pain (1-3) Albuterol Sulfate (Proventil Hfa) 2 puff INH Q4HR PRN PRN Reason: SOB/wheezing Albuterol Sulfate (Ventolin) 2.5 mg NEB Q8H PRN PRN Reason: SOB &/or Wheezing Albuterol/Ipratropium (Duoneb) 3 ml NEB [id number] PRN PRN Reason: SOB &/or Wheezing Last Admin: 09/20/19 19:20 Dose: 3 ml Apixaban (Eliquis) 5 mg PO BID [facility] Last Admin: 09/21/19 09:10 Dose: 5 mg Atorvastatin Calcium (Lipitor) 40 mg PO [facility] Last Admin: 09/20/19 20:39 Dose: 40 mg Carvedilol (Coreg) 25 mg PO BID[facility] Last Admin: 09/21/19 08:49 Dose: 25 mg Dextrose/Water (Dextrose 50%) 25 gm SLOW IVP PRN PRN PRN Reason: Hypoglycemia Digoxin (Lanoxin) 0.125 mg SLOW IVP NOW [facility] Stop: 09/21/19 14:00 Digoxin (Lanoxin) 0.25 mg PO DAILY [facility] Famotidine (Pepcid) 20 mg PO BID [facility] Last Admin: 09/21/19 08:51 Dose: 20 mg Furosemide (Lasix) 40 mg PO DAILY [facility] Last Admin: 09/21/19 08:51 Dose: 40 mg Glucagon (Glucagon) 1 mg IM PRN PRN PRN Reason: Hypoglycemia Dextrose/Water (D5w) 1,000 mls @ 0 mls/hr IV .Q0M PRN PRN Reason: Hypoglycemia Insulin Glargine 30 units/ (Miscellaneous Medication) 0.3 mls @ 0 mls/hr SC [facility] Last Admin: 09/20/19 20:40 Dose: Not Given Ceftriaxone Sodium 1 gm/ (Sodium Chloride) 100 mls @ 200 mls/hr IVPB Q24HR [facility] Stop: 09/22/19 23:59 Last Admin: 09/21/19 08:50 Dose: 100 mls Insulin Human Lispro (Humalog) 0 units SC .MILD SLIDING SCALE PRN PRN Reason: Mild Correctional Scale Insulin Human Lispro (Humalog) 0 units SC .BEDTIME SLIDING SC PRN PRN Reason: Bedtime Correctional Scale Metformin HCl (Glucophage) 1,000 mg PO BID [facility] Last Admin: 09/21/19 08:51 Dose: 1,000 mg Metoprolol Tartrate (Lopressor) 5 mg IVP Q6H PRN PRN Reason: Cardiac Arrythmia Sodium Chloride (Flush - Normal Saline) 10 ml IVF Q12HR PRN PRN Reason: Saline Flush Last Admin: 09/20/19 10:03 Dose: 10 ml Sodium Chloride (Flush - Normal Saline) 10 ml IVF PRN PRN PRN Reason: Saline Flush Tamsulosin HCl (Flomax) 0.4 mg PO DAILY [facility] Last Admin: 09/21/19 08:51 Dose: 0.4 mg Vital Signs & Weight: Vital Signs Temp Pulse Resp BP BP Pulse Ox 09/21/19 11:54 97.7 F 84 18 121/79 99 09/21/19 07:34 97.7 F 85 18 134/94 H 100 09/21/19 03:12 97.4 F L 89 17 127/74 100 Weight 340 lb 7 oz - Physical Exam Neck: supple neck Cardiac: irregularly regular Lungs: decreased breath sounds - Labs Result Diagrams: 09/22/19 07:03 09/22/19 07:03 Troponin/CKMB Troponin I Less than 0.010 ng/mL (< 0.028) 09/15/19 16:12 - Telemetry Supraventricular conduction: atrial fibrillation - Assessment/Plan Assessment/Plan: 1. New onset Afib with RVR - well controlled HR with Digoxin 0.25mg qd and Coreg 25mg BID; Eliquis is started from this AM; Appreciate EP input. Per Dr Christianson, Consider CV after 30 days OAC vs initiation of AAD therapy then CV. Ultimately he may require AV node ablation with BiV pacing support 2. Chronic systolic HF with EF 25-30% possible due to hx of Afib - On BBlocker and Lasix; LifeVest will be ordered for low EF. possible cardiac cath if he is more stable and stable renal function 3. HTN - stable with current med 4. DM type 2 5. HLD 6. CRISTA - stable 7. KAILEY - Strongly recommend to wear Cpap at HS for hx of afib and CMY. 8. COPD with Home O2 2LNC MAR reviewed * Echo on 09/16/2019 with EF 25-30%, mild-mod dilated LA, mild TR, and trace MR Pt. seen and eval. by me. I agree with the A/P by the [employer]. When I saw him today he was c/o diarhea and weakness.Chest clear. Irreg/irreg. No edema. Morbid obesity. Probably home in 1-2 days when stable and diarhea resolved.
[2019-09-21] MEDS: Insulin Glargine 30 UNITS in Pre-Filled Syringe SC SCH (20:55)
[2019-09-21] MEDS: Atorvastatin Calcium 40 MG TAB PO SCH (20:55)
--- NOTE | 2019-09-22 06:17 | PDOC.FM ---
- Subjective Subjective: Pt states that he is feeling well and breathing better this morning. He notes that he has had diarrhea twice in the past week. Denies any abdominal pain, fever, chills, N/V. No CP, SOB, palpitations this morning. - Objective Vital Signs & Weight: Vital Signs (12 hours) Temp Pulse Resp BP Pulse Ox 09/22/19 04:10 97.6 F 98 22 H 138/87 96 09/21/19 20:45 97.4 F L 99 19 115/81 96 Weight Weight 153.541 kg I&O: 09/20/19 09/21/19 09/22/19 06:59 06:59 06:59 Intake Total 1300 1375 840 Output Total 1305 1775 725 Balance -5 -400 115 Result Diagrams: 09/22/19 07:03 09/22/19 07:03 Phys Exam - Physical Examination Constitutional: NAD HEENT: moist MMs Neck: full ROM Poor inspiration, clear Irregularly irregular, normal rate Gastrointestinal: soft, non-tender, no distention, positive bowel sounds Musculoskeletal: pulses present, edema present (Trace) Neurological: non-focal, moves all 4 limbs Psychiatric: normal affect, A&O x 3 Skin: no rash, cap refill <2 seconds Dx/Plan (1) Atrial fibrillation Code(s): I48.91 - UNSPECIFIED ATRIAL FIBRILLATION Status: Acute (2) Atrial fibrillation with rapid ventricular response Code(s): I48.91 - UNSPECIFIED ATRIAL FIBRILLATION Status: Resolved (3) Diabetes mellitus Code(s): E11.9 - TYPE 2 DIABETES MELLITUS WITHOUT COMPLICATIONS Status: Acute (4) HTN (hypertension) Code(s): I10 - ESSENTIAL (PRIMARY) HYPERTENSION Status: Acute (5) Obstructive sleep apnea Code(s): G47.33 - OBSTRUCTIVE SLEEP APNEA (ADULT) (PEDIATRIC) Status: Acute - Plan Plan: Atrial fibrillation w/ RVR, new onset - Afib with poor rate control yesterday - Cards/EP increased digoxin to 0.25mg - Transitioned to Eliquis yesterday - Pt has refused any placement in rehab or SNF care. Has HH in place and lives next door to his daughter who is available to assist in his care. CRISTA vs CRISTA on CKD, resolved New Onset CHF - ECHO showed EF 25-30% - cardiology feels reduced EF is likely due to tachycardia, may resolve with rate control/cardioversion - Strict I/Os - Home Lasix 40mg Simple Cystitis - Rocephin last dose today DM - Started 30u lantus insulin - pt refused last night - Continue home metformin 1000 BID - Glycemic control much improved with basal insulin HTN BPH - continue home medications Gout - hold allopurinol GERD - hold omeprazole - give pepcid BID while in hospital KAILEY, OHS - morbidly obese - poor air movement, used to sleep w/ CPAP, recommend outpatient sleep study and to restart CPAP therapy. Code: FULL Fluids: none. VTE PPx: lovenox, therapeutic GI PPx: pepcid Disposition/LOS: Telemetry inpatient. Titrating digoxin. Expect DC today vs tomorrow if rate improves. Addendum - Attending - Attending Attestation Date/Time: 09/22/19 [id number] I personally evaluated the patient and discussed the management with Dr. Montemayor. I agree with the History, Examination, Assessment and Plan documented above with any addition or exceptions noted below. Patient doing well. He has refused rehab/SNF consideration. Awaiting EP/ Cardiology recs regarding heart rate but possible d/c home today as he is otherwise stable for d/c.
[2019-09-22 07:30] LABS: #Basophils 0.1 thou/uL (0.0-0.2); #Eosinphils 0.2 thou/uL (0.0-0.7); #Lymphocytes 2.7 thou/uL (1.20-3.40); #Monocytes 0.9 thou/uL (0.11-0.59); #Neutrophils 6.1 thou/uL (1.40-6.50); %Basophils 0.5 % (0.0-1.0); %Eosinophils 2.4 % (0.0-10.0); %Lymphocytes 27.3 % (21.0-51.0); %Monocytes 8.6 % (0.0-10.0); %Neutrophils 61.2 % (42.0-75.0); Mean Corpuscular HGB CONC 31.6 g/dL (32.0-36.0); Mean Corpuscular Hemoglobin 28.4 pg (27.0-31.0); Mean Corpuscular Volume 89.6 fL (78.0-98.0); Mean Platelet Volume 11.3 fL (7.4-10.4); Platelet Count 176 thou/uL (130-400); RBC Distribution Width 13.2 % (11.5-14.5); Red Blood Cell (RBC) Count 4.93 mill/uL (4.70-6.10); White Blood Cell (WBC) Count 9.9 thou/uL (4.8-10.8)
[2019-09-22 07:33] LABS: ALT (SGPT) 30 U/L (8-55); AST (SGOT) 18 U/L (5-34); Albumin 3.6 g/dL (3.4-4.8); Alkaline Phosphatase 77 U/L (40-110); Anion Gap 13 mmol/L (10-20); BUN (Urea Nitrogen) 16 mg/dL (8.4-25.7); Bilirubin, Total 0.4 mg/dL (0.2-1.2); Calc. Creatinine Clearance 122 mL/min (70-130); Calcium 9.6 mg/dL (7.8-10.44); Carbon Dioxide 28 mmol/L (23-31); Chloride 101 mmol/L (98-107); Estimated GFR-MDRD 67; Globulin 2.9 g/dL (2.4-3.5); Glucose 169 mg/dL (83-110); Potassium 4.2 mmol/L (3.5-5.1); Protein, Total 6.5 g/dL (5.8-8.1); Sodium 138 mmol/L (136-145)
[2019-09-22] MEDS: Digoxin 0.25 MG TAB PO SCH (08:16)
[2019-09-22] MEDS: HumaLOG 300 UNITS/3 ML VIAL SC PRN ×2 (08:16→16:48)
[2019-09-22] MEDS: cefTRIAXone\\ROCEPHIN 1 GM in Sodium Chloride 0.9% 100 ML IVPB SCH (08:16)
[2019-09-22] MEDS: Famotidine 20 MG TAB PO SCH ×2 (08:17→19:50)
[2019-09-22] MEDS: Tamsulosin HCl 0.4 MG CAP PO SCH (08:17)
[2019-09-22] MEDS: Carvedilol 25 MG TAB PO SCH ×2 (08:17→16:47)
[2019-09-22] MEDS: Apixaban 5 MG TAB PO SCH ×2 (08:17→19:50)
[2019-09-22] MEDS: Furosemide 40 MG TAB PO SCH (08:17)
[2019-09-22] MEDS: metFORMIN 500 MG TAB PO SCH ×2 (08:17→19:50)
--- NOTE | 2019-09-22 10:24 | PDOC.CPN ---
- Subjective Date: 09/22/19 Time: 10:24 Interval history: The pt seen and examined. No overnight events. No cardiac complaints. He stated he cont. having diarrhea this AM - Objective Allergies/Adverse Reactions: Allergies Allergy/AdvReac Type Severity Reaction Status Date / Time Penicillins Allergy Verified 09/15/19 20:48 Visit Medications: Current Medications Acetaminophen (Tylenol) 650 mg PO Q4H PRN PRN Reason: Headache/Fever/Mild Pain (1-3) Albuterol Sulfate (Proventil Hfa) 2 puff INH Q4HR PRN PRN Reason: SOB/wheezing Albuterol Sulfate (Ventolin) 2.5 mg NEB Q8H PRN PRN Reason: SOB &/or Wheezing Albuterol/Ipratropium (Duoneb) 3 ml NEB [id number] PRN PRN Reason: SOB &/or Wheezing Last Admin: 09/20/19 19:20 Dose: 3 ml Apixaban (Eliquis) 5 mg PO BID [facility] Last Admin: 09/22/19 08:17 Dose: 5 mg Atorvastatin Calcium (Lipitor) 40 mg PO [facility] Last Admin: 09/21/19 20:55 Dose: 40 mg Carvedilol (Coreg) 25 mg PO BID[facility] Last Admin: 09/22/19 08:17 Dose: 25 mg Dextrose/Water (Dextrose 50%) 25 gm SLOW IVP PRN PRN PRN Reason: Hypoglycemia Digoxin (Lanoxin) 0.25 mg PO DAILY [facility] Last Admin: 09/22/19 08:16 Dose: 0.25 mg Famotidine (Pepcid) 20 mg PO BID [facility] Last Admin: 09/22/19 08:17 Dose: 20 mg Furosemide (Lasix) 40 mg PO DAILY [facility] Last Admin: 09/22/19 08:17 Dose: 40 mg Glucagon (Glucagon) 1 mg IM PRN PRN PRN Reason: Hypoglycemia Dextrose/Water (D5w) 1,000 mls @ 0 mls/hr IV .Q0M PRN PRN Reason: Hypoglycemia Insulin Glargine 30 units/ (Miscellaneous Medication) 0.3 mls @ 0 mls/hr SC [facility] Last Admin: 09/21/19 20:55 Dose: 0.3 mls Ceftriaxone Sodium 1 gm/ (Sodium Chloride) 100 mls @ 200 mls/hr IVPB Q24HR [facility] Stop: 09/22/19 23:59 Last Admin: 09/22/19 08:16 Dose: 100 mls Insulin Human Lispro (Humalog) 0 units SC .MILD SLIDING SCALE PRN PRN Reason: Mild Correctional Scale Last Admin: 09/22/19 08:16 Dose: 2 unit Insulin Human Lispro (Humalog) 0 units SC .BEDTIME SLIDING SC PRN PRN Reason: Bedtime Correctional Scale Metformin HCl (Glucophage) 1,000 mg PO BID [facility] Last Admin: 09/22/19 08:17 Dose: 1,000 mg Metoprolol Tartrate (Lopressor) 5 mg IVP Q6H PRN PRN Reason: Cardiac Arrythmia Sodium Chloride (Flush - Normal Saline) 10 ml IVF Q12HR PRN PRN Reason: Saline Flush Last Admin: 09/20/19 10:03 Dose: 10 ml Sodium Chloride (Flush - Normal Saline) 10 ml IVF PRN PRN PRN Reason: Saline Flush Tamsulosin HCl (Flomax) 0.4 mg PO DAILY [facility] Last Admin: 09/22/19 08:17 Dose: 0.4 mg Vital Signs & Weight: Vital Signs Temp Pulse Resp BP BP Pulse Ox 09/22/19 07:09 97.5 F L 82 20 160/94 H 95 09/22/19 04:10 97.6 F 98 22 H 138/87 96 Weight 338 lb 8 oz - Physical Exam HEENT: mucus membranes moist Cardiac: irregularly regular Lungs: decreased breath sounds - Labs Result Diagrams: 09/22/19 07:03 09/22/19 07:03 Troponin/CKMB Troponin I Less than 0.010 ng/mL (< 0.028) 09/15/19 16:12 - Telemetry Supraventricular conduction: atrial fibrillation - Assessment/Plan Assessment/Plan: 1. New onset Afib with RVR - well controlled HR with Digoxin 0.25mg qd and Coreg 25mg BID; On Eliquis; Appreciate EP input. Per Dr Christianson, Consider CV after 30 days OAC vs initiation of AAD therapy then CV. Ultimately he may require AV node ablation with BiV pacing support 2. Chronic systolic HF with EF 25-30% possible due to hx of Afib - On BBlocker and Lasix; LifeVest will be ordered for low EF. possible cardiac cath if he is more stable and stable renal function 3. HTN - stable with current med 4. DM type 2 5. HLD 6. CRISTA - stable 7. KAILEY - Strongly recommend to wear Cpap at HS for hx of afib and CMY. 8. COPD with Home O2 2LNC 9. Diarrhea MAR reviewed * Echo on 09/16/2019 with EF 25-30%, mild-mod dilated LA, mild TR, and trace MR * The pt will f/u with his chief of police in [facility].
[2019-09-22 13:34] LABS: Hemoglobin 14.2 g/dL (14.0-18.0); Platelet Count 182 thou/uL (130-400)
--- NOTE | 2019-09-22 17:03 | PDOC.EP ---
- Subjective Date: 09/22/19 Time: 16:50 Interval History: He continues to feel better. Less Dyspnea. No palpitations. Moderate LE edema. Still fairly inactive. - Review of Systems Respiratory: denies: cough, dry, hemoptysis, pleuritic pain, shortness of breath , SOB with excertion, sputum, wheezing, other Cardiology: denies: chest pain, edema, heart racing, light headedness, paroxysmal noc. dyspnea, orthopnea, palpitations, passing out, pleuritic pain, pressure, swelling, other - Objective Allergies/Adverse Reactions: Allergies Allergy/AdvReac Type Severity Reaction Status Date / Time Penicillins Allergy Verified 09/15/19 20:48 Current Medications Acetaminophen (Tylenol) 650 mg PO Q4H PRN PRN Reason: Headache/Fever/Mild Pain (1-3) Albuterol Sulfate (Proventil Hfa) 2 puff INH Q4HR PRN PRN Reason: SOB/wheezing Albuterol Sulfate (Ventolin) 2.5 mg NEB Q8H PRN PRN Reason: SOB &/or Wheezing Albuterol/Ipratropium (Duoneb) 3 ml NEB [id number] PRN PRN Reason: SOB &/or Wheezing Last Admin: 09/20/19 19:20 Dose: 3 ml Apixaban (Eliquis) 5 mg PO BID [facility] Last Admin: 09/22/19 08:17 Dose: 5 mg Atorvastatin Calcium (Lipitor) 40 mg PO HS [facility] Last Admin: 09/21/19 20:55 Dose: 40 mg Carvedilol (Coreg) 37.5 mg PO BID-[facility] Last Admin: 09/22/19 16:47 Dose: 37.5 mg Dextrose/Water (Dextrose 50%) 25 gm SLOW IVP PRN PRN PRN Reason: Hypoglycemia Digoxin (Lanoxin) 0.25 mg PO DAILY [facility] Last Admin: 09/22/19 08:16 Dose: 0.25 mg Famotidine (Pepcid) 20 mg PO BID [facility] Last Admin: 09/22/19 08:17 Dose: 20 mg Furosemide (Lasix) 40 mg PO DAILY [facility] Last Admin: 09/22/19 08:17 Dose: 40 mg Glucagon (Glucagon) 1 mg IM PRN PRN PRN Reason: Hypoglycemia Dextrose/Water (D5w) 1,000 mls @ 0 mls/hr IV .Q0M PRN PRN Reason: Hypoglycemia Insulin Glargine 30 units/ (Miscellaneous Medication) 0.3 mls @ 0 mls/hr SC [facility] Last Admin: 09/21/19 20:55 Dose: 0.3 mls Ceftriaxone Sodium 1 gm/ (Sodium Chloride) 100 mls @ 200 mls/hr IVPB Q24HR [facility] Stop: 09/22/19 23:59 Last Admin: 09/22/19 08:16 Dose: 100 mls Insulin Human Lispro (Humalog) 0 units SC .MILD SLIDING SCALE PRN PRN Reason: Mild Correctional Scale Last Admin: 09/22/19 16:48 Dose: 2 unit Insulin Human Lispro (Humalog) 0 units SC .BEDTIME SLIDING SC PRN PRN Reason: Bedtime Correctional Scale Metformin HCl (Glucophage) 1,000 mg PO BID [facility] Last Admin: 09/22/19 08:17 Dose: 1,000 mg Metoprolol Tartrate (Lopressor) 5 mg IVP Q6H PRN PRN Reason: Cardiac Arrythmia Sodium Chloride (Flush - Normal Saline) 10 ml IVF Q12HR PRN PRN Reason: Saline Flush Last Admin: 09/20/19 10:03 Dose: 10 ml Sodium Chloride (Flush - Normal Saline) 10 ml IVF PRN PRN PRN Reason: Saline Flush Tamsulosin HCl (Flomax) 0.4 mg PO DAILY [facility] Last Admin: 09/22/19 08:17 Dose: 0.4 mg Vital Signs & Weight: Vital Signs Temp Pulse Resp BP BP Pulse Ox 09/22/19 15:02 97.5 F L 90 20 132/74 99 09/22/19 11:19 98.2 F 82 20 129/82 96 09/22/19 07:09 97.5 F L 82 20 160/94 H 95 Weight 338 lb 8 oz I/O: I/O 09/21/19 09/22/19 09/23/19 06:59 06:59 06:59 Intake Total 1375 840 Output Total 1775 725 Balance -400 115 - Quality Measures Condition: Atrial Fibrillation/Flutter (hx or current) CV meds: Eliquis: Yes - Physical Exam General: alert & oriented x3, appears well, no apparent distress Neck: no JVD/HJR Cardiology: no murmur, irregularly irregular Lungs: clear to auscultation Abdomen: active bowel sounds Extremities: warm - Labs Result Diagrams: 09/22/19 13:25 09/22/19 13:25 - EKG Interpretation EKG shows: Atrial fibrillation (still limited VR control overnight.) - Assessment/Plan Assessment/Plan: 1. Newly found atrial fibrillation with rapid ventricular rates. a. Now with nearly improved V rate control on Coreg. Increased to 37.5 mg BID and dig 125mcg QD b. On Eliquis 5mg BID 2. 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 a. History of normal LVEF at 50% to 55% in October 2018, worsening to 25% to 30% on current admission. b. Unknown etiology, possibly tachycardia mediated. 3. Urinary tract infection, on antibiotics. 4. Morbid obesity. 5. Type 2 diabetes and hypertension. 6. History of hemorrhoids. 7. History of COPD. Poor rate control despite yesterday increase of digoxin. Coreg Increased to 37.5 mg BID. Switched to Eliquis for OAC. Consider CV after 30 days OAC vs initiation of AAD therapy then CV. Ultimately he may require AV node ablation with BiV pacing support. Cardiology to follow EF. Consider primary prevention ICD in future if EF remains <35% after 3 months of optimized medical management. froylan
[2019-09-22] MEDS: Atorvastatin Calcium 40 MG TAB PO SCH (19:50)
[2019-09-22] MEDS: Insulin Glargine 30 UNITS in Pre-Filled Syringe SC SCH (19:56)
--- NOTE | 2019-09-22 23:02 | DIS ---
DATE OF ADMISSION: 09/15/2019 DATE OF DISCHARGE: 09/22/2019 ADMITTING ATTENDING: Eryn Green MD DISCHARGE ATTENDING: Tank Johnson MD RESIDENT: Dada Montemayor DO CONSULTS: 1. Cardiology, Gaby Jj MD. 2. Electrophysiology, David Christianson MD. 3. Cardiac rehab. PROCEDURES PERFORMED: None. IMAGING: Chest x-ray findings, no evidence of acute cardiopulmonary disease. Echocardiogram findings, atrial fibrillation, difficult exam due to body habitus. Ejection fraction estimated at 25% to 30%, [id number] left atrium dilation. PRIMARY DIAGNOSES: Atrial fibrillation with RVR-new onset, congestive heart failure, obesity hypoventilation syndrome/obstructive sleep apnea. SECONDARY DIAGNOSES: Hypertension, diabetes mellitus type 2, chronic obstructive pulmonary disease. DISCHARGE MEDICATIONS: 1. Metformin 1000 mg b.i.d. 2. Hydrochlorothiazide 100 mg daily. 3. Lasix 40 mg daily. 4. Omeprazole 20 mg daily. 5. Allopurinol 100 mg b.i.d. 6. Tamsulosin 0.4 mg daily. 7. Albuterol sulfate 8.5 g q.4 hours p.r.n. 8. Levalbuterol hydrochloride 1.25 mg/3 mL neb q.8 hours. 9. Eliquis 5 mg b.i.d. 10. Atorvastatin 40 mg at bedtime. 11. Lantus SoloStar 30 units daily. 12. Coreg 37.5 mg b.i.d. 13. Digoxin 0.25 mg daily. DISCONTINUED MEDICATIONS: 1. Coreg 6.25 b.i.d. 2. Lipitor 20 daily. 3. Glipizide 10 mg daily. HISTORY OF PRESENT ILLNESS AND HOSPITAL COURSE: A 79-year-old male, who presented to the ED with heart palpitations and shortness of breath, was found to be in new onset atrial fibrillation with RVR. The patient was admitted to the hospital on a diltiazem drip and was subsequently rate controlled. Dr. Olivares, Cardiology, was consulted. Echocardiogram was performed showing an EF of 25% to 30%. Electrophysiology, Dr. Christianson, was consulted. The patient was converted from diltiazem drip to oral calcium channel blockers, which were subsequently stopped after the finding of reduced ejection fraction. The patient was then started on digoxin at 0.125 mg and had his Coreg increased to 25 mg daily b.i.d. Throughout the remainder of the patient's stay, he was treated for an asymptomatic cystitis with five days of IV Rocephin. His rate control medications were gradually titrated with his digoxin increased to 0.25 mg daily and his Coreg increased to 37.5 mg b.i.d. The patient remained mostly rate controlled on this regimen with exacerbations of his tachycardia with exertion at times. The patient remained asymptomatic during these periods and did not feel that they reduced his functional capacity. It was recommended to the patient that he be discharged to a fpc facility versus a rehab center. The patient adamantly refused this and stated that he had home health services and a daughter, who is a nurse who lives next door to assist him in his cares. During his admission the pt was also found to have elevated blood sugars. The patient was transitioned from glipizide to basal insulin. His oral b.i.d. metformin was continued. Glycemic monitoring during his stay showed that this change greatly improved his overall glycemic control and will be continued as an outpatient. The patient did note two episodes of diarrhea over the last week, but denied any associated fevers, chills, or abdominal pain. The patient also received some diuresis early on in his admission for some increasing lower extremity edema, which was likely secondary to his reduced EF currently. Dr. Christianson and Dr. Jj felt that the patient's reduced ejection fraction was likely associated to recent atrial fibrillation with tachycardia. The patient was started on Eliquis for anticoagulation and was instructed to follow up with Dr. Christianson in 3 to 4 weeks for possible cardioversion. If this is unsuccessful in the future, the patient will likely need some form of pacemaker intervention. The patient received a LifeVest prior to discharge due to his ejection fraction of 25% to 30%. We discussed return precautions and home safety prior to discharge to which patient expressed understanding. DISCHARGE INSTRUCTIONS: 1. Location: Home. 2. Diet: Heart healthy, carb conscious. 3. Activity: As tolerated by cardiopulmonary limits. 4. Followup: PCP within [address] Christianson in [address] Jj in 1 to 2 months. Job ID: [id number] MTDD
[2019-09-23] MEDS: metFORMIN 500 MG TAB PO SCH (09:12)
[2019-09-23] MEDS: Digoxin 0.25 MG TAB PO SCH (09:12)
[2019-09-23] MEDS: Tamsulosin HCl 0.4 MG CAP PO SCH (09:12)
[2019-09-23] MEDS: Carvedilol 25 MG TAB PO SCH (09:13)
[2019-09-23] MEDS: Famotidine 20 MG TAB PO SCH (09:13)
[2019-09-23] MEDS: Apixaban 5 MG TAB PO SCH (09:13)
[2019-09-23] MEDS: Furosemide 40 MG TAB PO SCH (09:13)
--- NOTE | 2019-09-23 12:26 | PDOC.EP ---
- Subjective Date: 09/23/19 Time: 12:26 Interval History: He continues to feel better. Less Dyspnea. No palpitations. Moderate LE edema. Still fairly inactive.DC home today - Review of Systems Constitutional: denies: chills, fever, malaise, sweats, weakness, other Respiratory: denies: cough, dry, hemoptysis, pleuritic pain, shortness of breath , SOB with excertion, sputum, wheezing, other Cardiology: denies: chest pain, edema, heart racing, light headedness, paroxysmal noc. dyspnea, orthopnea, palpitations, passing out, pleuritic pain, pressure, swelling, other - Objective Allergies/Adverse Reactions: Allergies Allergy/AdvReac Type Severity Reaction Status Date / Time Penicillins Allergy Verified 09/15/19 20:48 Current Medications Acetaminophen (Tylenol) 650 mg PO Q4H PRN PRN Reason: Headache/Fever/Mild Pain (1-3) Albuterol Sulfate (Proventil Hfa) 2 puff INH Q4HR PRN PRN Reason: SOB/wheezing Albuterol Sulfate (Ventolin) 2.5 mg NEB Q8H PRN PRN Reason: SOB &/or Wheezing Albuterol/Ipratropium (Duoneb) 3 ml NEB [id number] PRN PRN Reason: SOB &/or Wheezing Last Admin: 09/20/19 19:20 Dose: 3 ml Apixaban (Eliquis) 5 mg PO BID [facility] Last Admin: 09/23/19 09:13 Dose: 5 mg Atorvastatin Calcium (Lipitor) 40 mg PO HS [facility] Last Admin: 09/22/19 19:50 Dose: 40 mg Carvedilol (Coreg) 37.5 mg PO BID[facility] Last Admin: 09/23/19 09:13 Dose: 37.5 mg Dextrose/Water (Dextrose 50%) 25 gm SLOW IVP PRN PRN PRN Reason: Hypoglycemia Digoxin (Lanoxin) 0.25 mg PO DAILY [facility] Last Admin: 09/23/19 09:12 Dose: 0.25 mg Famotidine (Pepcid) 20 mg PO BID [facility] Last Admin: 09/23/19 09:13 Dose: 20 mg Furosemide (Lasix) 40 mg PO DAILY [facility] Last Admin: 09/23/19 09:13 Dose: 40 mg Glucagon (Glucagon) 1 mg IM PRN PRN PRN Reason: Hypoglycemia Dextrose/Water (D5w) 1,000 mls @ 0 mls/hr IV .Q0M PRN PRN Reason: Hypoglycemia Insulin Glargine 30 units/ (Miscellaneous Medication) 0.3 mls @ 0 mls/hr SC HS [facility] Last Admin: 09/22/19 19:56 Dose: 0.3 mls Insulin Human Lispro (Humalog) 0 units SC .MILD SLIDING SCALE PRN PRN Reason: Mild Correctional Scale Last Admin: 09/22/19 16:48 Dose: 2 unit Insulin Human Lispro (Humalog) 0 units SC .BEDTIME SLIDING SC PRN PRN Reason: Bedtime Correctional Scale Metformin HCl (Glucophage) 1,000 mg PO BID [facility] Last Admin: 09/23/19 09:12 Dose: 1,000 mg Metoprolol Tartrate (Lopressor) 5 mg IVP Q6H PRN PRN Reason: Cardiac Arrythmia Sodium Chloride (Flush - Normal Saline) 10 ml IVF Q12HR PRN PRN Reason: Saline Flush Last Admin: 09/20/19 10:03 Dose: 10 ml Sodium Chloride (Flush - Normal Saline) 10 ml IVF PRN PRN PRN Reason: Saline Flush Tamsulosin HCl (Flomax) 0.4 mg PO DAILY [facility] Last Admin: 09/23/19 09:12 Dose: 0.4 mg Vital Signs & Weight: Vital Signs Temp Pulse Resp BP BP Pulse Ox 09/23/19 09:12 86 09/23/19 08:00 97.0 F L 84 18 136/90 96 09/23/19 03:01 97.4 F L 86 18 136/72 96 Weight 338 lb 8 oz I/O: I/O 09/22/19 09/23/19 09/24/19 06:59 06:59 06:59 Intake Total 840 1300 Output Total 725 1400 Balance 115 -100 - Quality Measures Condition: Atrial Fibrillation/Flutter (hx or current) CV meds: Eliquis: Yes - Physical Exam General: alert & oriented x3, appears well, no apparent distress, speech clear, affect appropriate HEENT: mucus membranes moist, normocephaly Neck: supple neck, midline trachea, no JVD/HJR, no masses, no bruit, no lymphadenopathy, no thromegaly Cardiology: regular rate and rhythm, no murmur, PMI nondisplaced Lungs: clear to auscultation Neurology: cranial nerve 2-12 intact, grossly intact, sensory function intact - Labs Result Diagrams: 09/22/19 13:25 09/22/19 13:25 - EKG Interpretation EKG Method: Telemetry EKG shows: Sinus rhythm - Assessment/Plan Assessment/Plan: 1. Newly found atrial fibrillation with rapid ventricular rates. a. Now with nearly improved V rate control on Coreg. Increased to 37.5 mg BID and dig 125mcg QD b. On Eliquis 5mg BID 2. 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 a. History of normal LVEF at 50% to 55% in October 2018, worsening to 25% to 30% on current admission. b. Unknown etiology, possibly tachycardia mediated. 3. Urinary tract infection, on antibiotics. 4. Morbid obesity. 5. Type 2 diabetes and hypertension. 6. History of hemorrhoids. 7. History of COPD. Poor rate control despite yesterday increase of digoxin. Coreg Increased to 37.5 mg BID. Switched to Eliquis for OAC. Consider CV after 30 days OAC vs initiation of AAD therapy then CV. Ultimately he may require AV node ablation with BiV pacing support. Cardiology to follow EF. Consider primary prevention ICD in future if EF remains <35% after 6 weeks of optimized medical management.
[2019-09-23 12:42] VITALS: BP 121/68; TEMP 97.6
--- NOTE | 2019-09-24 03:14 | PQF ---
[employer] Market Director Crystal Reports Winform Viewer JESSICA RODRIGES JASON MD *r* [id number] CLINICAL DOCUMENTATION CLARIFICATION FORM: POST DISCHARGE Addendum to original discharge summary date: ____ Late entry note date: 09/28/2019 DATE: 09/24/19 ATTN: Tank Doherty Please exercise your independent, professional judgment in responding to the clarification form. Clinical indicators are provided on the bottom of this form for your review Can you please further clarify the acuity of Systolic heart failure? Please check appropriate box(s): HEART FAILURE: ACUITY [ ] Acute [ X] Acute on Chronic [ ] Chronic [ ] Other diagnosis [ ] Unable to determine In addition, please specify: Present on Admission (POA): [ X ] Yes [ ] No [ ] Unable to determine For continuity of documentation, please document condition throughout progress notes and discharge summary. Thank You. CLINICAL INDICATORS - SIGNS / SYMPTOMS / LABS H and P pg.5- New onset CHF vs CHF exacerbation H and P pg.6- comes in for palpitation and shortness of breath H and P pg.7- likely mild CHF exacerbation Consult pg.1 Dr. Jj- ejection fraction was estimated at 50-55%, but he did have evidence of severe diastolic dysfunction Cardiology PN pg.3 - Chronic systolic HF with EF 25-30% possible due to hx of Afib Consult 09/19 Dr. Christianson pg.3- he does not appear to be significant fluid overload based on his baseline BNP Electrophysiology PN 09/20 pg.3- newly found acute systolic congestive heart failure with nonischemic cardiomyopathy DS pg.1- congestive heart failure RISKS: atrial fibrillation- H and P pg.4 CKD- H and P pg.5 HTN- H and P pg.5 KAILEY- H and P pg.5 DM- H and P pg.5 TREATMENTS: Chest X ray 09/15 Electrocardiogram 09/15 Echocardiogram, 09/16 Cardiology Consult 09/16 Dr. Jj Daily weight IV lasix- MAR I and O monitoring (This form is maintained as a part of the permanent medical record) 2014 [employer] All Rights Reserved [email or web address]
== END 2019-09-23 13:11 | disposition home health service (06) | DRG 291 ==
LOC: ERS 15:40 → 2NO 17:32
PROVIDERS: ADMIT Emergency Medicine; ATTEND Emergency Medicine
DX: I13.0 Hypertensive heart and chronic kidney disease with heart failure and stage 1 through stage 4 chronic kidney disease, or unspecified chronic kidney disease (principal); I50.23 Acute on chronic systolic (congestive) heart failure; N17.9 Acute kidney failure, unspecified; E66.2 Morbid (severe) obesity with alveolar hypoventilation; Z68.42 Body mass index [BMI] 45.0-49.9, adult; I48.91 Unspecified atrial fibrillation; J44.9 Chronic obstructive pulmonary disease, unspecified; E78.00 Pure hypercholesterolemia, unspecified; N40.0 Benign prostatic hyperplasia without lower urinary tract symptoms; N18.9 Chronic kidney disease, unspecified; E11.22 Type 2 diabetes mellitus with diabetic chronic kidney disease; I42.8 Other cardiomyopathies; E78.5 Hyperlipidemia, unspecified; K21.9 Gastro-esophageal reflux disease without esophagitis; M10.9 Gout, unspecified; N30.90 Cystitis, unspecified without hematuria; Z88.1 Allergy status to other antibiotic agents; Z79.84 Long term (current) use of oral hypoglycemic drugs; Z79.899 Other long term (current) drug therapy; Z79.51 Long term (current) use of inhaled steroids; Z99.81 Dependence on supplemental oxygen; Z88.0 Allergy status to penicillin
CPT/HCPCS: 36415; 36416; 71045; 80048; 80053; 81003; 81015; 82550; 83036; 83735; 83880; 84443; 84484; 85025; 87077; 87086; 87186; 93005; 93010; 93306; 93798; 94640; 94760; 96365; 96366; 96368; J0696; J1160; J1650; J1815; J1940; J1956; J3475; J3490; J7612; J7620

== ENCOUNTER 2019-10-10 04:58 | Observation (INO) | payer MEDICARE ==
[2019-10-10 05:20] LABS: #Basophils 0.1 thou/uL (0.0-0.2); #Eosinphils 0.2 thou/uL (0.0-0.7); #Monocytes 0.7 thou/uL (0.11-0.59); #Neutrophils 4.7 thou/uL (1.40-6.50); %Eosinophils 2.6 % (0.0-10.0); %Lymphocytes 26.5 % (21.0-51.0); %Monocytes 8.9 % (0.0-10.0); %Neutrophils 60.9 % (42.0-75.0); Hemoglobin 13.1 g/dL (14.0-18.0); Mean Corpuscular HGB CONC 33.1 g/dL (32.0-36.0); Mean Corpuscular Hemoglobin 29.6 pg (27.0-31.0); Mean Corpuscular Volume 89.6 fL (78.0-98.0); Mean Platelet Volume 10.6 fL (7.4-10.4); Platelet Count 171 thou/uL (130-400); RBC Distribution Width 13.1 % (11.5-14.5); Red Blood Cell (RBC) Count 4.41 mill/uL (4.70-6.10); White Blood Cell (WBC) Count 7.7 thou/uL (4.8-10.8)
[2019-10-10 05:43] LABS: ALT (SGPT) 18 U/L (8-55); AST (SGOT) 15 U/L (5-34); Albumin 3.8 g/dL (3.4-4.8); Alkaline Phosphatase 87 U/L (40-110); Anion Gap 12 mmol/L (10-20); BUN (Urea Nitrogen) 19 mg/dL (8.4-25.7); Bilirubin, Total 0.3 mg/dL (0.2-1.2); Calc. Creatinine Clearance 0 mL/min (70-130); Calcium 9.2 mg/dL (7.8-10.44); Carbon Dioxide 28 mmol/L (23-31); Chloride 104 mmol/L (98-107); Estimated GFR-MDRD 63; Globulin 2.5 g/dL (2.4-3.5); Glucose 186 mg/dL (83-110); Potassium 3.9 mmol/L (3.5-5.1); Protein, Total 6.3 g/dL (5.8-8.1); Sodium 140 mmol/L (136-145)
[2019-10-10] MEDS ORDERED: Furosemide 20 MG/2 ML VIAL ONE ×2 (05:52→07:18)
[2019-10-10] MEDS ORDERED: Carvedilol 6.25 MG TAB PO SCH (06:15)
[2019-10-10] MEDS ORDERED: Hydrochlorothiazide 25 MG TAB PO SCH (06:15)
--- NOTE | 2019-10-10 06:22 | PDOC.FPRHP ---
- History of Present Illness Chief Complaint: SOB History of Present Illness: Patient is a 79 y/o male with a PMH significant for a recent hospitalization for A-Fib w/ RVR as well as COPD, Morbid Obesity, and CHF who presents to the ED for a 3 day history of SOB and LE Edema. Patient states that he has noticed that his feet have been swelling, that he generally feels poor, and that he has had an increased cough (green sputum) and weakness for the past several days. Patient states that these symptoms have been present since he was DC'd from the hospital several weeks ago, and that he asked his home nurse to come check on him, but she was unavailable so he called EMS. He recently he saw his PCP, who recommended that he wear a Life Vest. Patient denies any alterations to his medication regimen, and says that he has been relatively compliant with his diet. ROS(+): BARNEY, PND, Blurry Vision, Weakness, N/V/Diarrhea (x1), Weight Gain (4 LBS ), Wheezing ROS(-): Fever, Chills, CP, REHMAN, Presyncopal Episode, Bloody Stools, Dysuria, ED Course: s/p HCTZ 100 mg PO, Furosemide 20 mg IV, Carvedilol 6.25 mg PO CXR:Evidence for Fluid Overload EKG: Reported by ED Attending Physician to be NSR w/o ST Elevations Trops: Negative x1 BNP: 83 - Allergies/Adverse Reactions Allergies Allergy/AdvReac Type Severity Reaction Status Date / Time Penicillins Allergy Verified 09/15/19 20:48 - Home Medications Medication Instructions Recorded Confirmed Type Allopurinol 10 mg PO DAILY 09/15/19 10/10/19 History Furosemide [Lasix] 20 mg PO BID 09/15/19 10/10/19 History Hydrochlorothiazide 100 mg PO DAILY 09/15/19 10/10/19 History Levalbuterol HCl [Xopenex] 1.25 mg NEB Q8HR 09/15/19 10/10/19 History Omeprazole 20 mg PO DAILY 09/15/19 10/10/19 History Tamsulosin HCl 0.4 mg PO DAILY 09/15/19 10/10/19 History metFORMIN HCl [Metformin HCl] 1,000 mg PO BID 09/15/19 10/10/19 History Insulin Glargine,Hum.Rec.Anlog 30 unit SC DAILY #3 pen 09/21/19 10/10/19 Rx [Lantus Solostar] Atorvastatin Calcium 20 mg PO HS 10/10/19 10/10/19 History Carvedilol [Coreg] 6.25 mg PO BID 10/10/19 10/10/19 History Meloxicam [Mobic] 7.5 mg PO DAILY 10/10/19 10/10/19 History Montelukast Sodium 10 mg PO HS 10/10/19 10/10/19 History Potassium Chloride [Klor-Con] 20 meq PO SEEPHYS 10/10/19 10/10/19 History glipiZIDE [Glipizide] 10 mg PO DAILY 10/10/19 10/10/19 History - History PMHx: A-Fib, HTN, DM2, COPD, Morbid Obesity, Physical Deconditioning PSHx: Hemorrhoidectomy (Remote) FHx: Father (Unknown Heart Problems) Mother (Unknown Heart Problems) Social: Remote EtOH Abuse - Denies x3 at this time. Code: Full - Review of Systems General: reports: fatigue. denies: fever/chills Eyes: reports: vision changes ENT: denies: nasal congestion, rhinorrhea Respiratory: reports: cough, shortness of breath, exercise intolerance, other Cardiovascular: reports: edema, paroxysmal nocturnal dyspnea, orthopnea. denies : chest pain, palpitation Gastrointestinal: reports: nausea, vomiting, diarrhea Genitourinary: denies: dysuria Skin: denies: rashes, itching Musculoskeletal: reports: swelling Neurological: denies: syncope, weakness - Vital signs BP: [174/90] HR: [62] RR: [22] Tmax: [97.8] Pox: [93]% on [Room Air] Wt: [160 kg] - Physical Exam Constitutional: NAD, awake, alert and oriented, well developed HEENT: normocephalic and atraumatic, PERRLA, conjunctiva clear, no scleral icterus, grossly normal vision, grossly normal hearing, normal nasal mucosa, MMM , oropharynx clear Neck: supple, FROM, trachea midline, no LAD, no JVD Chest: no-tender to palpation, no lesions (+2 Pitting Edema to Knees) Heart: RRR, other (Difficult to auscultate due to body habitus) Lungs: no retractions, other (Poor air movement with mild expiratory wheezes) Abdomen: soft, non-tender, bowel sounds present, no masses/distention, no hernias Musculoskeletal: normal structure, ROM grossly normal Neurological: no focal deficit Skin: no rash/lesions, no jaundice Heme/Lymphatic: no unusual bruising or bleeding, no purpura, no petechia, no LAD Psychiatric: intact recent and remote memory FMR H&P: Results - Labs Result Diagrams: 10/10/19 05:14 10/10/19 05:14 Lab results: WBC 7.7 thou/uL (4.8-10.8) 10/10/19 05:14 Hgb 13.1 g/dL (14.0-18.0) L 10/10/19 05:14 Hct 39.6 % (42.0-52.0) L 10/10/19 05:14 MCV 89.6 fL (78.0-98.0) 10/10/19 05:14 Plt Count 171 thou/uL (130-400) 10/10/19 05:14 Neutrophils % 60.9 % (42.0-75.0) 10/10/19 05:14 Sodium 140 mmol/L (136-145) 10/10/19 05:14 Potassium 3.9 mmol/L (3.5-5.1) 10/10/19 05:14 Chloride 104 mmol/L (98-107) 10/10/19 05:14 Carbon Dioxide 28 mmol/L (23-31) 10/10/19 05:14 BUN 19 mg/dL (8.4-25.7) 10/10/19 05:14 Creatinine 1.12 mg/dL (0.7-1.3) 10/10/19 05:14 Glucose 186 mg/dL (83-110) H 10/10/19 05:14 Calcium 9.2 mg/dL (7.8-10.44) 10/10/19 05:14 Total Bilirubin 0.3 mg/dL (0.2-1.2) 10/10/19 05:14 AST 15 U/L (5-34) 10/10/19 05:14 ALT 18 U/L (8-55) 10/10/19 05:14 Alkaline Phosphatase 87 U/L (40-110) 10/10/19 05:14 B-Natriuretic Peptide 83.2 pg/mL (0-100) 10/10/19 05:14 Serum Total Protein 6.3 g/dL (5.8-8.1) 10/10/19 05:14 Albumin 3.8 g/dL (3.4-4.8) 10/10/19 05:14 - Radiology Interpretation Chest x-ray Status: image reviewed by me, report reviewed by me (Equivocal - Recommend 2 View CXR) FMR H&P: A/P - Problem List (1) COPD (chronic obstructive pulmonary disease) Current Visit: No Status: Acute (2) Morbid obesity Current Visit: No Status: Acute Code(s): E66.01 - MORBID (SEVERE) OBESITY DUE TO EXCESS CALORIES (3) Physical deconditioning Current Visit: No Status: Acute Code(s): R53.81 - OTHER MALAISE (4) CHF (congestive heart failure) Current Visit: No Status: Acute Code(s): I50.9 - HEART FAILURE, UNSPECIFIED (5) HTN (hypertension) Current Visit: No Status: Acute Code(s): I10 - ESSENTIAL (PRIMARY) HYPERTENSION (6) Obstructive sleep apnea Current Visit: No Status: Acute Code(s): G47.33 - OBSTRUCTIVE SLEEP APNEA ( ADULT) (PEDIATRIC) - Plan Patient is a 79 y/o male who presents to the ED following a 3 day history of SOB. 1. CHF Exacerbation -Patient admits to signs and symptoms consistent with Acute CHF Exacerbation -s/p Furosemide 20 mg IV - will increase to 40 mg IV BID -Patient currently stable on 2L O2 via Nasal Cannula -BNP: < 100 -TTE (09/19): EF 25-30% - will not repeat -Strict I&Os and Daily Weights 2. COPD -DuoNebs Q4H PRN -Patient currently stable on 2L O2 via Nasal Cannula 3. Physical Deconditioning -Likely contributing to CC and #1 and #2 -PT/OT Consult: Pending 4. Morbid Obesity -Likely contributing to CC and #1 and #2 -PT/OT Consult: Pending 5. A-Fib w/ RVR, Resolved -Patient denies feelings of palpitations or syncopal episodes -EKG: NSR in ED -Trops: Negative x1 -Patient currently wearing Life Vest -Consider Cardiology / EP consult during this hospitalization 6. DM2 -Continue home medication regimen PCP: RAMESH Code: Full Diet: HH w/ Low Sodium Activity: Ambulate w/ Assist, Ambulate to Chair VTE PPx: SCDs and Home Apixaban Dispo: Patient is currently admitted to the Telemetry Floor for observation and evaluation for suspected Acute CHF Exacerbation. Continue fluid diuresis as per above and consider Cardiology / EP Consult. Continue to manage chronic medical conditions. Await PT/OT and Case Management consults, as patient will likely require SNF placement. Expected LOS < 48H. FMR H&P: Upper Level - Plan Date/Time: 10/10/19621 PCP: RAMESH Woody ([place], [place]) HPI: This is a 79 yo M with PMH including CHF, DM2, HTN, COPD, atrial fibrillation and gout coming in for evaluation of weakness. Per his report, he called his nurse last night and asked her to check his vitals, she was unavailable so called 911 to bring him in for evaluation. He states he has been feeling weak for 3-4 days. Has chills, denies CP, palpitations, or SOB. He thinks he is wheezing more than usual. He is supposed be on 2L home o2 but it is unclear if he has been using it. He says he has gained 4 lbs since being discharged from the hospital, states he has been compliant with his medications but is a poor historian. He states he walks with home PT but otherwise mainly uses a wheelchair to move about his home. He lives at home, has a home health nurse that comes to visit and his daughter lives nearby. REVIEW OF SYSTEMS: Gen: no fever, chills, or sweats Neuro: denies headache Eyes: no visual changes ENT: no hearing changes, no sore throat, no congestion Resp: denies cough, is short of breath on exertion Card: denies CP, palpitations GI: no N/V/D, had abd pain yesterday but none today Heme: no easy bruising/bleeding, no blood thinners Skin: no rash, no erythema PHYSICAL EXAMINATION: General: NAD, alert and oriented x3 HEENT: PERRLA, EOMI, normal sclera, oropharynx without erythema or exudate Neck: Supple. Full ROM. Difficult to appreciate JVD bc of body habitus Heart/Cardiovascular System: RRR, Cap refill < 3 seconds, no rub, no murmur Lungs/Respiratory System: CTA-B, no resp distress, mild exp wheeze, obesity hypoventilation Abdomen/Gastro-Intestinal System: no abdominal tenderness, normal bowel sounds Extremities: Warm extremities. +2 pitting edema to mid calf Neuro: No gross deficits appreciated. CN 2-12 grossly intact Psychiatry: Awake, Alert and cooperative with exam Skin: No lesions, rashes, or ulcers Musculoskeletal: Full ROM A/P: # Mild CHF exacerbation - Reports 4lbs wt gain in last 3 weeks - EF Aug 2019 25-30%, has lifevest on, BNP 84, trop neg x1, mild pulm edema on CXR - Lasix 40mg IV BID, Fluid rest., strict I/O, daily wt # Paroxysmal A fib - Patient was seen by Drs. Jj and Sammy previous admission, had discussed f/u for cardioversion vs pacemaker placement, currently sinus rhythm, recommend Cardiology consult, appreciate recs - Telemetry # De-conditioning - Patient was strongly recd to go to inpt. Rehab vs SNF last admission and he refused, this will be re-visited, PT/OT/CM consulted # COPD, Obesity Hypoventilation syndrome, KAILEY - home duoneb, on 2L o2 at home at baseline # HTN urgency - Cr. 1.12 which is baseline, trop negx1, trend - Restart home meds, Labetalol PRN # Gout, DMII - home meds Fluids: TKO Code status: Full PPx: eliquis Dispo: 2-3 days, would benefit from rehab Addendum - Attending - Attending Attestation Date/Time: 10/10/19 [id number] I personally evaluated the patient and discussed the management with Dr. Luz /Anthony I agree with the History, Examination, Assessment and Plan documented above with any addition or exceptions noted below. 79 yo WM recently d/c for new onset a-fib and HFrEF and PMH COPD and HTN Currently using baseline oxygen requirement. Presents from home with CC of SOB. Exam shows trace edema in legs. CXR concerning for possible HF exacerbation. Labs unremarkable. Observation for mild CHF vs COPD exacerbation. Patient states sx improved with duonebs and he was discharged on a large dose of coreg. Will discuss antiarrhythmic medications with cardiology. Start on RAJ inhibitor for HF and will attempt to titrate down his dose of coreg. Start prednisone 40 mg QD for 5 days for possible COPD exacerbation and schedule duonebs. Patient was advised last hospital stay to go to SNF for rehab but declined. Will consult CM for possible SNF placement. PT/OT consulted. Suspect LOS <2 midnights.
[2019-10-10] MEDS ORDERED: Labetalol HCl 100 MG/20 ML VIAL SLOW IVP PRN (06:55)
--- NOTE | 2019-10-10 07:26 | RAD ---
1 VIEW CHEST: Date: 10/10/2019 HISTORY: Shortness of breath. COMPARISON: 09/15/2019. FINDINGS: Persistent cardiomegaly. Pulmonary vessels and hilum are normal. Costophrenic angles are clear. Lung volumes are diminished, likely due to a poor inspiratory effort. No masses or consolidation. No pneum othorax or osseous abnormalities. IMPRESSION: Decreased lung volumes due to poor inspiratory effort. No definite acute cardiopulmonary process. Fur ther evaluation if clinically warranted with a 2 view chest radiograph. POS: PPP
[2019-10-10] MEDS ORDERED: Acetaminophen 325 MG TAB PO PRN (08:44)
[2019-10-10] MEDS: Hydrochlorothiazide 25 MG TAB PO SCH (08:55)
[2019-10-10] MEDS ORDERED: Labetalol 100 MG TAB PO SCH (09:00)
[2019-10-10] MEDS ORDERED: Non-Formulary Item 1 EACH (Insulin Glargine,Hum.Rec.Anlog [Lantus Solostar] 30 UNIT) SC SCH (09:00)
[2019-10-10] MEDS ORDERED: HYDROCHLOROTHIAZIDE PO SCH (09:00)
[2019-10-10] MEDS ORDERED: Non-Formulary Item 1 EACH (Metformin Hcl [Metformin Hcl] 1,000 MG) PO SCH (09:00)
[2019-10-10] MEDS ORDERED: Non-Formulary Item 1 EACH (Omeprazole [Omeprazole] 20 MG) PO SCH (09:00)
[2019-10-10] MEDS: Allopurinol 100 MG TAB PO SCH ×2 (09:07→20:27)
[2019-10-10] MEDS: Carvedilol 25 MG TAB PO SCH ×2 (09:09→17:15)
[2019-10-10] MEDS: metFORMIN 500 MG TAB PO SCH ×2 (09:13→20:26)
[2019-10-10] MEDS: Apixaban 5 MG TAB PO SCH ×2 (09:13→20:27)
[2019-10-10] MEDS: Tamsulosin HCl 0.4 MG CAP PO SCH (09:13)
[2019-10-10] MEDS: Digoxin 0.25 MG TAB PO SCH (09:15)
[2019-10-10] MEDS ORDERED: Dextrose 50% Abboject 50 ML SYRINGE SLOW IVP PRN (09:37)
[2019-10-10] MEDS ORDERED: Dextrose 5% in Water 1,000 ML IV PRN (09:37)
[2019-10-10 09:41] LABS: Troponin I Less than 0.010 ng/mL (< 0.028)
[2019-10-10 12:30] LABS: Troponin I Less than 0.010 ng/mL (< 0.028)
[2019-10-10] MEDS ORDERED: Lisinopril 5 MG TAB PO SCH (13:15)
[2019-10-10] MEDS: Furosemide 40 MG/4 ML VIAL SLOW IVP SCH (14:09)
[2019-10-10] MEDS ORDERED: predniSONE 20 MG TAB PO SCH (15:30)
[2019-10-10] MEDS: Atorvastatin Calcium 40 MG TAB PO SCH (20:27)
[2019-10-10] MEDS: Insulin Glargine 30 UNITS in Pre-Filled Syringe 1 EACH SC SCH (20:27)
--- NOTE | 2019-10-10 23:24 | CON ---
DATE OF CONSULTATION: HISTORY: Pete Hogan is a 79-year-old white male, who was evaluated by Dr. Jj on September 16, 2019. He was admitted with atrial fibrillation with fast ventricular response. He was placed on intravenous diltiazem to slow his rate. Echocardiogram at that time revealed study to be technically difficult with ejection fraction of 25% to 30%, mild to moderate left atrial dilatation, trace mitral regurgitation and mild tricuspid regurgitation. He was placed on digoxin and carvedilol. Carvedilol was increased to 37.5 mg b.i.d. He was rate controlled with this. He was placed on Eliquis 5 mg b.i.d. for anticoagulation. He was to follow up with Dr. Christianson for possible cardioversion in the future. He now presents complaining of increased shortness of breath, increased peripheral edema. He also states that he has been weak and lightheaded at times. Since discharge, he apparently has converted to sinus rhythm and has had heart rates in the 50s to 60s. He denies any chest discomfort. He has had increased sputum production of a remington type of sputum. PAST MEDICAL HISTORY: Questionable pulmonary embolism in the past, hypertension , diabetes, hypercholesterolemia, COPD, gout, history of atrial fibrillation, morbid obesity. OPERATIONS: Hemorrhoidectomy. SOCIAL HISTORY: He drank a lot in the past for several years. He does not smoke, apparently was exposed to secondhand cigarette smoke. MEDICATIONS: 1. Allopurinol 300 mg daily. 2. Atorvastatin 20 at bedtime. 3. Carvedilol 37.5 b.i.d. 4. Furosemide 20 b.i.d. 5. Glipizide 10 daily. 6. Hydrochlorothiazide 100 q.a.m. 7. Xopenex nebs q.8 hours. 8. Mobic 7.5 mg daily. 9. Metformin 1000 b.i.d. 10. Omeprazole 20 daily. 11. Potassium chloride 20 mEq daily. 12. Flomax 0.4 daily. 13. Eliquis 5 mg b.i.d. ALLERGIES: PENICILLIN. REVIEW OF SYSTEMS: Unremarkable except as noted above. PHYSICAL EXAMINATION: VITAL SIGNS: Blood pressure 141/73, pulse of 70. At times, his heart rate will fall into the 50s. HEENT: PERRL. NECK: Supple. CHEST: Reveals distant breath sounds with late expiratory wheezing. CARDIOVASCULAR: S1 and S2 normal without any S3, S4, or murmurs. ABDOMEN: Normal bowel sounds. Obese. EXTREMITIES: Revealed 1+ pretibial edema. IMAGING STUDIES: The only EKG I see on the chart have been from Paramedics. He is in normal sinus rhythm with a rate of 55 per minute with occasional PVCs. LABORATORY DATA: Sodium 140, potassium 3.9, chloride 104, carbon dioxide 28, BUN 19, creatinine 1.12. Cardiac enzymes are negative x3. Hemoglobin 13.1, hematocrit 39.6, white count 7,700, platelets 171,000. IMPRESSION: 1. Increased shortness of breath, probably related to chronic obstructive pulmonary disease exacerbation. 2. Atrial fibrillation, which apparently has converted to sinus rhythm since he was discharged. 3. Sinus bradycardia at times into the 50s. 4. Morbid obesity. 5. Cardiomyopathy with last ejection fraction of 25% to 30%. 6. Hypertension. 7. Diabetes. PLAN: Now the patient is back in sinus rhythm, echo will be performed to reassess left ventricular function. He will be gently diuresed and treated for his COPD. At the present time, I do not feel that his bradycardia is that symptomatic. He certainly may require placement of an ICD in the future for his left ventricular dysfunction. Job ID: [id number] [facility]
[2019-10-11 05:47] LABS: Anion Gap 17 mmol/L (10-20); BUN (Urea Nitrogen) 24 mg/dL (8.4-25.7); Calc. Creatinine Clearance 107 mL/min (70-130); Calcium 9.3 mg/dL (7.8-10.44); Carbon Dioxide 28 mmol/L (23-31); Chloride 98 mmol/L (98-107); Estimated GFR-MDRD 55; Glucose 265 mg/dL (83-110); Potassium 4.2 mmol/L (3.5-5.1); Sodium 139 mmol/L (136-145)
--- NOTE | 2019-10-11 05:49 | PDOC.FM ---
- Subjective Subjective: He feels much better than yesterday. He has no SOB. He uses oxygen at home only at night and when active during the day. He is sleeping and eating well. He does not have any complaints of pain. - Objective MAR Reviewed: Yes Vital Signs & Weight: Vital Signs (12 hours) Temp Pulse Resp BP Pulse Ox 10/10/19 23:32 86 16 95 10/10/19 23:05 97.9 F 80 22 H 141/81 H 92 L 10/10/19 20:26 155/78 H 10/10/19 19:08 97.5 F L 67 20 182/86 H 95 10/10/19 18:14 74 20 94 L Weight Weight 158.956 kg I&O: 10/09/19 10/10/19 10/11/19 06:59 06:59 06:59 Intake Total 1052 Output Total 2807 Balance -1755 Result Diagrams: 10/10/19 05:14 10/11/19 04:33 Phys Exam - Physical Examination Constitutional: NAD HEENT: PERRLA, moist MMs Neck: no nodes, supple Respiratory: clear to auscultation bilateral Cardiovascular: RRR Gastrointestinal: soft, non-tender, positive bowel sounds Musculoskeletal: pulses present 1+ edema Neurological: moves all 4 limbs Lymphatic: no nodes Psychiatric: normal affect Skin: no rash Dx/Plan (1) CHF exacerbation Code(s): I50.9 - HEART FAILURE, UNSPECIFIED Status: Acute (2) CHF (congestive heart failure) Code(s): I50.9 - HEART FAILURE, UNSPECIFIED Status: Acute (3) COPD (chronic obstructive pulmonary disease) Status: Acute (4) Diabetes mellitus Code(s): E11.9 - TYPE 2 DIABETES MELLITUS WITHOUT COMPLICATIONS Status: Acute (5) HTN (hypertension) Code(s): I10 - ESSENTIAL (PRIMARY) HYPERTENSION Status: Acute (6) Physical deconditioning Code(s): R53.81 - OTHER MALAISE Status: Acute - Plan Plan: Patient is a 79 y/o male who presents to the ED following a 3 day history of SOB. 1. CHF Exacerbation * Patient admits to signs and symptoms consistent with Acute CHF Exacerbation * s/p Furosemide 20 mg IV in ED - will increase to 40 mg IV BID * Patient currently stable on Room air * BNP: 80s last visit it was over 100 * TTE (09/19): EF 25-30% - will not repeat * Strict I&Os and Daily Weights * Cardiology consulted (10/10), appreciate recs. * Pending ECHO results that will determine if need for ICD placement 2. COPD * DuoNebs Q4H PRN * Continue home meds: Montelukast 3. Physical Deconditioning * Likely contributing to SOB, COPD, and CHF * PT/OT Consulted 4. Morbid Obesity * Likely contributing to SOB, COPD, and CHF * PT/OT Consulted 5. A-Fib w/ RVR, Resolved * Patient denies feelings of palpitations or syncopal episodes * EKG: NSR in ED * Trops: Negative x3 * Patient currently wearing Life Vest 6. DM2 * Continue home medication regimen Code: Full Diet: HHLSo Activity: Ambulate w/ Assist, Ambulate to Chair VTE PPx: SCDs and Home Apixaban PCP: CC Dispo: Tele obs, for Acute CHF Exacerbation. Continue fluid diuresis and await ECHO results. Determine placement today. Expected LOS < 48H. Addendum - Attending - Attending Attestation Date/Time: 10/11/19 1210 I personally evaluated the patient and discussed the management with Dr. Andrade I agree with the History, Examination, Assessment and Plan documented above with any addition or exceptions noted below. TTE read pending. Patient feels much better but is refusing SNF/rehab. Once cleared by cardiology, can d/c home. Complete steroid treatment. increased lisinopril.
[2019-10-11] MEDS: Furosemide 40 MG/4 ML VIAL SLOW IVP SCH ×2 (06:42→15:18)
[2019-10-11] MEDS: HumaLOG 300 UNITS/3 ML VIAL SC PRN ×3 (06:43→20:32)
[2019-10-11] MEDS ORDERED: Lisinopril 5 MG TAB PO SCH ×2 (09:00→09:45)
[2019-10-11] MEDS: Carvedilol 25 MG TAB PO SCH ×2 (09:02→16:55)
[2019-10-11] MEDS: predniSONE 20 MG TAB PO SCH (09:03)
[2019-10-11] MEDS: Allopurinol 100 MG TAB PO SCH ×2 (09:04→20:31)
[2019-10-11] MEDS: Apixaban 5 MG TAB PO SCH ×2 (09:04→20:31)
[2019-10-11] MEDS: metFORMIN 500 MG TAB PO SCH ×2 (09:05→20:31)
[2019-10-11] MEDS: Digoxin 0.25 MG TAB PO SCH (09:05)
[2019-10-11] MEDS: Tamsulosin HCl 0.4 MG CAP PO SCH (09:06)
[2019-10-11] MEDS: Hydrochlorothiazide 25 MG TAB PO SCH (09:07)
--- NOTE | 2019-10-11 14:55 | PDOC.CPN ---
- Subjective Date: 10/11/19 Time: 15:00 Interval history: The pt seen and examined. No overnight events. No cardiac complaints. - Objective Allergies/Adverse Reactions: Allergies Allergy/AdvReac Type Severity Reaction Status Date / Time Penicillins Allergy Verified 09/15/19 20:48 Visit Medications: Current Medications Acetaminophen (Tylenol) 650 mg PO Q4H PRN PRN Reason: Headache/Fever/Mild Pain (1-3) Albuterol/Ipratropium (Duoneb) 3 ml NEB [id number] PRN PRN Reason: SOB &/or Wheezing Albuterol/Ipratropium (Duoneb) 3 ml NEB [id number] [facility] Last Admin: 10/11/19 13:25 Dose: 3 ml Allopurinol (Zyloprim) 100 mg PO BID [facility] Last Admin: 10/11/19 09:04 Dose: 100 mg Apixaban (Eliquis) 5 mg PO BID [facility] Last Admin: 10/11/19 09:04 Dose: 5 mg Atorvastatin Calcium (Lipitor) 40 mg PO [facility] Last Admin: 10/10/19 20:27 Dose: 40 mg Carvedilol (Coreg) 37.5 mg PO BID-[facility] Last Admin: 10/11/19 09:02 Dose: 37.5 mg Dextrose/Water (Dextrose 50%) 25 gm SLOW IVP PRN PRN PRN Reason: Hypoglycemia Digoxin (Lanoxin) 0.25 mg PO DAILY [facility] Last Admin: 10/11/19 09:05 Dose: 0.25 mg Furosemide (Lasix) 40 mg SLOW IVP 0600,1400 [facility] Last Admin: 10/11/19 06:42 Dose: 40 mg Glucagon (Glucagon) 1 mg IM PRN PRN PRN Reason: Hypoglycemia Hydrochlorothiazide (Hydrochlorothiazide) 100 mg PO DAILY [facility] Last Admin: 10/11/19 09:07 Dose: 100 mg Insulin Glargine 30 units/ (Miscellaneous Medication) 0.3 mls @ 0 mls/hr SC [facility] Last Admin: 10/10/19 20:27 Dose: 0.3 mls Dextrose/Water (D5w) 1,000 mls @ 0 mls/hr IV .Q0M PRN PRN Reason: Hypoglycemia Insulin Human Lispro (Humalog) 0 units SC .MILD SLIDING SCALE PRN PRN Reason: Mild Correctional Scale Last Admin: 10/11/19 06:43 Dose: 4 unit Insulin Human Lispro (Humalog) 0 units SC .BEDTIME SLIDING SC PRN PRN Reason: Bedtime Correctional Scale Labetalol HCl (Normodyne) 20 mg SLOW IVP Q4H PRN PRN Reason: Hypertension Lisinopril (Zestril) 10 mg PO DAILY [facility] Metformin HCl (Glucophage) 1,000 mg PO BID [facility] Last Admin: 10/11/19 09:05 Dose: 1,000 mg Prednisone (Prednisone) 40 mg PO QAM-[facility] Stop: 10/16/19 08:01 Last Admin: 10/11/19 09:03 Dose: 40 mg Sodium Chloride (Flush - Normal Saline) 10 ml IVF Q12HR [facility] Last Admin: 10/11/19 09:07 Dose: 10 ml Sodium Chloride (Flush - Normal Saline) 10 ml IVF PRN PRN PRN Reason: Saline Flush Tamsulosin HCl (Flomax) 0.4 mg PO DAILY [facility] Last Admin: 10/11/19 09:06 Dose: 0.4 mg Vital Signs & Weight: Vital Signs Temp Pulse Resp BP BP Pulse Ox 10/11/19 13:25 72 16 94 L 10/11/19 11:08 98.1 F 72 20 169/71 H 96 10/11/19 10:31 72 152/77 H 10/11/19 09:06 76 165/76 H 10/11/19 09:05 76 10/11/19 07:13 70 20 94 L 10/11/19 07:09 97.9 F 64 20 165/76 H 95 10/11/19 03:05 98.1 F 85 20 150/72 H 93 L Weight 341 lb 9.6 oz - Physical Exam General: alert & oriented x3 HEENT: mucus membranes moist Neck: supple neck Cardiac: regular rate and rhythm, S1/S2 Lungs: decreased breath sounds - Labs Result Diagrams: 10/10/19 05:14 10/11/19 04:33 Troponin/CKMB Troponin I Less than 0.010 ng/mL (< 0.028) 10/10/19 11:37 - Telemetry Sinus rhythms and dysrhythmias: sinus rhythm - Assessment/Plan Assessment/Plan: 1. 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 Prox Afib - remains in SR; on BBlocker and Eliquis BID 3. HTN - Lisinopril was increased from today 4. COPD with Home O2 2LNC - stable 5. HLD 6. DM type 2 - 7. KAILEY 8. Morbid Obesity - MAR reviewed * the pt will f/u with his Quality Assurance Specialist in [place], [place]. Pt. seen and eval. by me. I agree with the A/P by the DIALYSIS CHIEF EQUIPMENT TECHNICIAN, however, review of the echocardiogram performed today with the pt. in NSR indicates a significant improvement in the EF. It is now about 55-60%. It will be important to maintain the pt. in NSR. I do not feel that he needs the Life-Vest any longer since the EF is > 35%.He will continue on the present medications. If he remains stable then he can likely be d/c'd home tomorrow.
[2019-10-11] MEDS: Artificial Tear Sol 15 ML BOT EA EYE PRN (18:37)
[2019-10-11] MEDS: Atorvastatin Calcium 40 MG TAB PO SCH (20:31)
[2019-10-11] MEDS: Insulin Glargine 30 UNITS in Pre-Filled Syringe 1 EACH SC SCH (20:31)
--- NOTE | 2019-10-12 04:14 | DIS ---
DATE OF ADMISSION: 10/10/2019 DATE OF DISCHARGE: 10/14/2019 RESIDENT: Dorian Andrade MD ADMITTING ATTENDING: Joseph Ashre MD DISCHARGE ATTENDING: Joseph Asher MD CONSULTS: * Cardiology, Dr. Rosales, 10/10/2019. Recommended echo to be performed during hospital stay to reassess left ventricular function. He is being gently diuresed for CHF and he is receiving breathing treatments for COPD at the present time. Does not feel like the bradycardia is symptomatic. He may require placement of ICD in the future for his left ventricular dysfunction. Pt was seen by Dr. Jj who order stress test. PROCEDURES: * Chest x-ray, 10/10/2019, showed decreased lung volumes due to poor inspiratory effort. No definite acute cardiopulmonary process. Further evaluation in clinic likely warranted with a 2-view chest radiograph. * Echo performed 10/10/2019 showed EF of 55-60% with I/III diastolic dysfunction. Mild mitral regurge, mild AV sclerosis, mild tricuspid regurg and mild pulmonic regurg. * Stress preformed 10/12/2019 showed EF 54% with no evidence of ischemia. PRIMARY DIAGNOSES: 1. Congestive heart failure exacerbation. 2. Congestive heart failure. 3. Chronic obstructive pulmonary disease. SECONDARY DIAGNOSES: 1. Diabetes, type 2. 2. Hypertension,. 3. Physical deconditioning. 4. Morbid obesity. 5. Atrial fibrillation with rapid ventricular response during last admission that is resolved. DISCHARGE MEDICATIONS: Medications continued from last hospital stay are; 1. Eliquis 5 mg p.o. b.i.d. 2. Atorvastatin 40 mg at bedtime. 3. Coreg 37.5 mg p.o. daily. 4. Digoxin 0.25 mg p.o. daily. Medications added for discharge this hospital stay are; 1. Lisinopril 10 mg p.o. daily. Continue home medication; 1. Allopurinol. 2. Lasix 40 mg daily. 3. Hydrochlorothiazide 50 mg daily. 4. Metformin 1000 mg b.i.d. 5. Tamsulosin 0.4 mg daily. 6. Meloxicam 7.5 mg daily. 7. Montelukast 10 mg daily. 8. Xopenex nebulizer q.8 hours p.r.n. 9. Potassium chloride 20 mEq. Discontinued medications: 1. DuoNebs. 2. Glucagon. 3. Insulin. HISTORY OF PRESENT ILLNESS: Patient is a 79-year-old male with a past medical history significant for recent hospitalization for AFib with RVR, as well as COPD, morbid obesity, and CHF, who presents to the ED for a 3-day history of shortness of breath and lower extremity edema. Patient states that he has noted that his feet have been swelling and he generally feels poor in that he has had increased cough with green sputum and weakness for the past several days. Patient states that these symptoms have been present since he was DC'd from the hospital several weeks ago and that he asked his home nurse to come check him, but she was unavailable, so they called EMS. He recently saw his PCP who recommended that he wear a LifeVest. Patient denies any alterations to his medication regimen and says that he has been relatively compliant with his diet. REVIEW OF SYSTEMS: Positive for dyspnea on exertion, paroxysmal nocturnal dyspnea, blurry vision, weakness, nausea, vomiting, diarrhea x1, weight gain of 4 pounds, and wheezing. He is on 2 L of oxygen at night and as needed with activity during the day. In the ED, he received hydrochlorothiazide 100 mg p.o., Lasix of 20 mg IV, and carvedilol 6.25 mg p.o. Chest x-ray showed evidence of fluid overload. EKG ordered by attending physician to be normal sinus rhythm without ST elevation. Troponins were negative. BNP was 83. 1. CHF exacerbation. Patient admits to signs and symptoms consistent with acute CHF exacerbation. * Status post 20 mg of IV Lasix in the ED, increased to 40 mg IV b.i.d. * Patient currently is stable on room air. * BNP 80. Last visit was over 100. * TTE on 09/19/2019 showed EF of 25% to 30%. * New ECHO as noted above * Stress as noted above * Cardiology recommendations as noted above. * Pt no longer is in need of LifeVest. 2. COPD. * DuoNeb q.4 p.r.n. * Continue home medications. 3. Physical deconditioning likely contributing to shortness of breath, COPD, and CHF. * PT and OT consult with recommendations for rehab or SNF. This was discussed with the patient, but patient declined. 4. Morbid obesity, likely contributing to shortness of breath, COPD, and CHF. 5. Atrial fibrillation with RVR that is resolved. Patient denies feeling any palpitations or syncopal episodes. * EKG is normal sinus rhythm in the ED. * Troponin negative x3. * Telemetry has showed sinus rhythm, sinus jose antonio during hospital stay. 6. Diabetes, type 2. * Continue home medication regimen. DISPOSITION: Stable DISCHARGE INSTRUCTIONS: 1. Location. Home. 2. Diet. Diabetic, heart healthy, low-sodium. 3. Activity. As tolerated. 4. Follow up with PCP in 7 days. 5. Home health is currently set up for patient at home, so no need for that at this time. Job ID: [id number] [facility]
[2019-10-12 04:56] LABS: Anion Gap 16 mmol/L (10-20); BUN (Urea Nitrogen) 32 mg/dL (8.4-25.7); Calc. Creatinine Clearance 107 mL/min (70-130); Carbon Dioxide 29 mmol/L (23-31); Chloride 98 mmol/L (98-107); Estimated GFR-MDRD 57; Potassium 3.5 mmol/L (3.5-5.1); Sodium 139 mmol/L (136-145)
[2019-10-12 04:57] LABS: Calcium 9.4 mg/dL (7.8-10.44); Glucose 161 mg/dL (83-110)
--- NOTE | 2019-10-12 05:47 | PDOC.FM ---
- Subjective Subjective: He is feeling well this morning. He says he is having no SOB. His battery on his life vest, so he is concerned about it. He had 2 bowel movements yesterday. - Objective MAR Reviewed: Yes Vital Signs & Weight: Vital Signs (12 hours) Temp Pulse Resp BP Pulse Ox 10/12/19 03:33 97.8 F 68 20 125/70 94 L 10/12/19 00:29 95 10/11/19 23:13 97.5 F L 72 20 123/55 L 94 L 10/11/19 19:15 97.9 F 73 20 134/63 94 L 10/11/19 17:53 76 16 95 Weight Weight 154.221 kg I&O: 10/10/19 10/11/19 10/12/19 06:59 06:59 06:59 Intake Total 1052 954 Output Total 2807 1525 Balance -1755 -571 Result Diagrams: 10/10/19 05:14 10/12/19 04:26 EKG Reviewed by me: Yes (V paced EKG) Phys Exam - Physical Examination Constitutional: NAD HEENT: PERRLA, oral pharynx no lesions Dry mucous membranes Neck: supple, full ROM Respiratory: no wheezing, no rales, no rhonchi, clear to auscultation bilateral Cardiovascular: RRR Gastrointestinal: soft, non-tender, positive bowel sounds trace edema Neurological: moves all 4 limbs Psychiatric: normal affect Skin: no rash, normal turgor Dx/Plan (1) CHF exacerbation Code(s): I50.9 - HEART FAILURE, UNSPECIFIED Status: Acute (2) CHF (congestive heart failure) Code(s): I50.9 - HEART FAILURE, UNSPECIFIED Status: Acute (3) COPD (chronic obstructive pulmonary disease) Status: Acute (4) Diabetes mellitus Code(s): E11.9 - TYPE 2 DIABETES MELLITUS WITHOUT COMPLICATIONS Status: Acute (5) HTN (hypertension) Code(s): I10 - ESSENTIAL (PRIMARY) HYPERTENSION Status: Acute (6) Physical deconditioning Code(s): R53.81 - OTHER MALAISE Status: Acute - Plan Plan: Patient is a 79 y/o male who presents to the ED following a 3 day history of SOB. 1. CHF Exacerbation * Patient admits to signs and symptoms consistent with Acute CHF Exacerbation * s/p Furosemide 20 mg IV in ED - will increase to 40 mg IV BID * Patient currently stable on Room air * BNP: 80s last visit it was over 100 * TTE (09/19): EF 25-30% * TTE (10/10): EF 55-60% 1/3 Dystolic Dysfunction, Left atrial dilation, Mild MR , Mild TR, Mild NM, and AV Sclerosis * Strict I&Os and Daily Weights * Cardiology consulted (10/10), appreciate recs. * Stress test today * Coreg held this morning for stress 2. COPD * DuoNebs Q4H PRN * Continue home meds: Montelukast 3. Physical Deconditioning * Likely contributing to SOB, COPD, and CHF * PT/OT Consulted 4. Morbid Obesity * Likely contributing to SOB, COPD, and CHF * PT/OT Consulted 5. A-Fib w/ RVR, Resolved * Patient denies feelings of palpitations or syncopal episodes * EKG: NSR in ED * Trops: Negative x3 * Patient currently wearing Life Vest, with improvement of EF he no longer needs life vest. 6. DM2 * Continue home medication regimen 7. Bradycardia Currently on Coreg 37.5 BID * Will decrease Coreg to 25 BID Code: Full Diet: HHLSo Activity: Ambulate w/ Assist, Ambulate to Chair VTE PPx: SCDs and Home Apixaban PCP: CC Dispo: Tele obs, for Acute CHF Exacerbation. Stress test today. Expected LOS < 48H. Addendum - Attending - Attending Attestation Date/Time: 10/12/19 0120 I personally evaluated the patient and discussed the management with Dr. Andrade I agree with the History, Examination, Assessment and Plan documented above with any addition or exceptions noted below. Cardiology recommend NM stress test before d/c. EF improved on TTE. Will decrease Coreg to 25 mg BID due to bradycardia and possible COPD exacerbation. Can d/c once NM stress complete.
[2019-10-12] MEDS: Furosemide 40 MG/4 ML VIAL SLOW IVP SCH ×2 (06:08→15:02)
[2019-10-12] MEDS ORDERED: Regadenoson 0.4 MG/5 ML SYRINGE ONE ×2 (09:32→09:34)
[2019-10-12] MEDS: predniSONE 20 MG TAB PO SCH (10:36)
[2019-10-12] MEDS: Digoxin 0.25 MG TAB PO SCH (10:36)
[2019-10-12] MEDS: Apixaban 5 MG TAB PO SCH ×2 (10:36→21:30)
[2019-10-12] MEDS: Tamsulosin HCl 0.4 MG CAP PO SCH (10:36)
[2019-10-12] MEDS: Lisinopril 10 MG TAB PO SCH (10:38)
[2019-10-12] MEDS: Hydrochlorothiazide 25 MG TAB PO SCH (10:38)
[2019-10-12] MEDS: Allopurinol 100 MG TAB PO SCH ×2 (10:38→21:29)
[2019-10-12] MEDS: metFORMIN 500 MG TAB PO SCH ×2 (10:39→21:29)
[2019-10-12] MEDS: Carvedilol 25 MG TAB PO SCH ×2 (10:43→17:02)
[2019-10-12] MEDS: Artificial Tear Sol 15 ML BOT EA EYE PRN (15:11)
[2019-10-12 16:18] VITALS: BMI 46.0
[2019-10-12] MEDS: HumaLOG 300 UNITS/3 ML VIAL SC PRN (17:03)
[2019-10-12] MEDS: Insulin Glargine 30 UNITS in Pre-Filled Syringe 1 EACH SC SCH (21:30)
[2019-10-12] MEDS: Atorvastatin Calcium 40 MG TAB PO SCH (21:30)
[2019-10-13 05:07] LABS: Anion Gap 12 mmol/L (10-20); BUN (Urea Nitrogen) 31 mg/dL (8.4-25.7); Calc. Creatinine Clearance 111 mL/min (70-130); Calcium 9.7 mg/dL (7.8-10.44); Carbon Dioxide 35 mmol/L (23-31); Chloride 95 mmol/L (98-107); Estimated GFR-MDRD 60; Glucose 206 mg/dL (83-110); Potassium 3.5 mmol/L (3.5-5.1); Sodium 138 mmol/L (136-145)
--- NOTE | 2019-10-13 05:42 | PDOC.FM ---
- Subjective Subjective: He is doing well this morning. He is not having any SOB. He says the edema has improved significantly from when he initially came. - Objective MAR Reviewed: Yes Vital Signs & Weight: Vital Signs (12 hours) Temp Pulse Resp BP Pulse Ox 10/13/19 03:45 98.1 F 51 L 16 143/69 H 96 10/13/19 00:11 98 16 94 L 10/13/19 00:00 98.1 F 66 16 119/57 L 96 10/12/19 19:48 65 16 95 10/12/19 19:35 98.7 F 65 20 138/68 98 Weight Admit Weight 158.956 kg Weight 154.221 kg I&O: 10/11/19 10/12/19 10/13/19 06:59 06:59 06:59 Intake Total 1052 1484 1160 Output Total 4655 2931 1720 Balance -1755 -991 -560 Result Diagrams: 10/13/19 10:21 10/13/19 10:21 EKG Reviewed by me: Yes (SB-SR, Collin 5x with 3 beats overnight, 51-98) Phys Exam - Physical Examination Constitutional: NAD HEENT: moist MMs, oral pharynx no lesions Neck: no nodes, supple Respiratory: no wheezing, no rales, no rhonchi, clear to auscultation bilateral Cardiovascular: RRR, no significant murmur Gastrointestinal: soft, non-tender, positive bowel sounds Musculoskeletal: no edema, pulses present Neurological: moves all 4 limbs Psychiatric: normal affect Skin: no rash, normal turgor Dx/Plan (1) CHF exacerbation Code(s): I50.9 - HEART FAILURE, UNSPECIFIED Status: Acute (2) CHF (congestive heart failure) Code(s): I50.9 - HEART FAILURE, UNSPECIFIED Status: Acute (3) COPD (chronic obstructive pulmonary disease) Status: Acute (4) Diabetes mellitus Code(s): E11.9 - TYPE 2 DIABETES MELLITUS WITHOUT COMPLICATIONS Status: Acute (5) HTN (hypertension) Code(s): I10 - ESSENTIAL (PRIMARY) HYPERTENSION Status: Acute (6) Physical deconditioning Code(s): R53.81 - OTHER MALAISE Status: Acute - Plan Plan: Patient is a 79 y/o male who presents to the ED following a 3 day history of SOB. 1. CHF Exacerbation- Improving * Patient admits to signs and symptoms consistent with Acute CHF Exacerbation * s/p Furosemide 20 mg IV in ED * Patient currently stable on Room air * BNP: 80s last visit it was over 100 * TTE (09/19): EF 25-30% * TTE (10/10): EF 55-60% 1/3 Dystolic Dysfunction, Left atrial dilation, Mild MR , Mild TR, Mild DC, and AV Sclerosis * Strict I&Os and Daily Weights * Cardiology consulted (10/10), appreciate recs. * 2nd part of Stress test today * Coreg held this morning for stress 2. COPD- Improving * DuoNebs Q4H PRN * Continue home meds: Montelukast 3. Physical Deconditioning * Likely contributing to SOB, COPD, and CHF * PT/OT Consulted 4. Morbid Obesity * Likely contributing to SOB, COPD, and CHF * PT/OT Consulted 5. A-Fib w/ RVR, Resolved * Patient denies feelings of palpitations or syncopal episodes * EKG: NSR in ED * Trops: Negative x3 * Patient currently wearing Life Vest, with improvement of EF he no longer needs life vest. 6. DM2 * Continue home medication regimen 7. Bradycardia Was on Coreg 37.5 BID * Decreased Coreg to 25 BID- holding this morning Code: Full Diet: HHLSo Activity: Ambulate w/ Assist, Ambulate to Chair VTE PPx: SCDs and Home Apixaban PCP: CC Dispo: Tele obs, for Acute CHF Exacerbation. 2nd part of Stress test today, d/c soon. Expected LOS < 48H. Addendum - Attending - Attending Attestation Date/Time: 10/13/19 3098 I personally evaluated the patient and discussed the management with Dr. Andrade I agree with the History, Examination, Assessment and Plan documented above with any addition or exceptions noted below. Radiology states he needs to have resting portion of test repeat tomorrow. Dispo pending results of NM stress.
[2019-10-13] MEDS: Furosemide 40 MG/4 ML VIAL SLOW IVP SCH (06:27)
[2019-10-13] MEDS ORDERED: Furosemide 40 MG TAB PO SCH (09:00)
[2019-10-13] MEDS: Lisinopril 10 MG TAB PO SCH (10:16)
[2019-10-13] MEDS: Hydrochlorothiazide 25 MG TAB PO SCH (10:17)
[2019-10-13] MEDS: Apixaban 5 MG TAB PO SCH ×2 (10:17→21:39)
[2019-10-13] MEDS: Allopurinol 100 MG TAB PO SCH ×2 (10:18→21:38)
[2019-10-13] MEDS: metFORMIN 500 MG TAB PO SCH ×2 (10:18→21:38)
[2019-10-13] MEDS: predniSONE 20 MG TAB PO SCH (10:18)
[2019-10-13] MEDS: Tamsulosin HCl 0.4 MG CAP PO SCH (10:18)
[2019-10-13] MEDS: Furosemide 20 MG TAB PO SCH ×2 (10:23→13:00)
[2019-10-13 10:29] LABS: Hemoglobin 14.4 g/dL (14.0-18.0); Platelet Count 218 thou/uL (130-400)
[2019-10-13] MEDS: Digoxin 0.25 MG TAB PO SCH (10:29)
[2019-10-13] MEDS: HumaLOG 300 UNITS/3 ML VIAL SC PRN ×3 (12:57→21:39)
[2019-10-13] MEDS: Carvedilol 25 MG TAB PO SCH (17:05)
[2019-10-13] MEDS: Insulin Glargine 30 UNITS in Pre-Filled Syringe 1 EACH SC SCH (21:39)
[2019-10-13] MEDS: Atorvastatin Calcium 40 MG TAB PO SCH (21:39)
[2019-10-14 05:27] LABS: Anion Gap 16 mmol/L (10-20); BUN (Urea Nitrogen) 31 mg/dL (8.4-25.7); Carbon Dioxide 31 mmol/L (23-31); Chloride 94 mmol/L (98-107); Potassium 3.5 mmol/L (3.5-5.1); Sodium 137 mmol/L (136-145)
[2019-10-14 05:28] LABS: Calc. Creatinine Clearance 113 mL/min (70-130); Calcium 9.6 mg/dL (7.8-10.44); Estimated GFR-MDRD 61; Glucose 145 mg/dL (83-110)
--- NOTE | 2019-10-14 05:35 | PDOC.FM ---
- Subjective Subjective: He says he is a little SOB this morning and he did not sleep well overnight. He is on home O2 at 2L overnight. - Objective MAR Reviewed: Yes Vital Signs & Weight: Vital Signs (12 hours) Temp Pulse Resp BP Pulse Ox 10/14/19 04:00 97.6 F 57 L 20 139/62 94 L 10/14/19 00:34 20 98 10/14/19 00:00 97.1 F L 68 20 129/61 92 L 10/13/19 20:00 97.6 F 60 20 106/54 L 94 L 10/13/19 19:07 59 L 20 96 Weight Admit Weight 158.956 kg Weight 151.454 kg I&O: 10/12/19 10/13/19 10/14/19 06:59 06:59 06:59 Intake Total 1484 1160 980 Output Total 3595 1970 1210 [facility] -991 -810 -230 Result Diagrams: 10/13/19 10:21 10/14/19 04:48 EKG Reviewed by me: Yes (Sinus bradycardia) Phys Exam - Physical Examination Constitutional: NAD HEENT: moist MMs, oral pharynx no lesions Neck: no nodes, supple Respiratory: no wheezing, no rales, no rhonchi, clear to auscultation bilateral Bradycardic Gastrointestinal: soft, non-tender, positive bowel sounds Musculoskeletal: no edema, pulses present Neurological: moves all 4 limbs Lymphatic: no nodes Psychiatric: normal affect Skin: no rash, normal turgor Dx/Plan (1) CHF exacerbation Code(s): I50.9 - HEART FAILURE, UNSPECIFIED Status: Acute (2) CHF (congestive heart failure) Code(s): I50.9 - HEART FAILURE, UNSPECIFIED Status: Acute (3) COPD (chronic obstructive pulmonary disease) Status: Acute (4) Diabetes mellitus Code(s): E11.9 - TYPE 2 DIABETES MELLITUS WITHOUT COMPLICATIONS Status: Acute (5) HTN (hypertension) Code(s): I10 - ESSENTIAL (PRIMARY) HYPERTENSION Status: Acute (6) Physical deconditioning Code(s): R53.81 - OTHER MALAISE Status: Acute - Plan Plan: Patient is a 79 y/o male who presents to the ED following a 3 day history of SOB. 1. CHF Exacerbation-Resolved * Patient admits to signs and symptoms consistent with Acute CHF Exacerbation * s/p Furosemide 20 mg IV in ED * Patient currently stable on Room air * BNP: 80s last visit it was over 100 * TTE (09/19): EF 25-30% * TTE (10/10): EF 55-60% 1/3 Dystolic Dysfunction, Left atrial dilation, Mild MR , Mild TR, Mild NC, and AV Sclerosis * Strict I&Os and Daily Weights * Cardiology consulted (10/10), appreciate recs. * Repeating part of Stress test today * Coreg held this morning for stress 2. COPD- Improving * DuoNebs Q4H PRN * Continue home meds: Montelukast 3. Physical Deconditioning * Likely contributing to SOB, COPD, and CHF * PT/OT Consulted 4. Morbid Obesity * Likely contributing to SOB, COPD, and CHF * PT/OT Consulted 5. A-Fib w/ RVR, Resolved * Patient denies feelings of palpitations or syncopal episodes * EKG: NSR in ED * Trops: Negative x3 * Patient currently wearing Life Vest, with improvement of EF he no longer needs life vest. 6. DM2 * Continue home medication regimen 7. Bradycardia Was on Coreg 37.5 BID * Decreased Coreg to 25 BID- holding this morning * Consider decreasing to 12.5 mg BID Code: Full Diet: HHLSo Activity: Ambulate w/ Assist, Ambulate to Chair VTE PPx: SCDs and Home Apixaban PCP: CC Dispo: Tele obs, for Acute CHF Exacerbation. Repeating part of Stress test today , d/c soon. Expected LOS < 48H. Addendum - Attending - Attending Attestation Date/Time: 10/14/19 1494 I personally evaluated the patient and discussed the management with Dr. Andrade I agree with the History, Examination, Assessment and Plan documented above with any addition or exceptions noted below. may d/c once stress test results. has completed prednisone course for COPD exacerbation.
[2019-10-14] MEDS: Tamsulosin HCl 0.4 MG CAP PO SCH (10:45)
[2019-10-14] MEDS: metFORMIN 500 MG TAB PO SCH (10:45)
[2019-10-14] MEDS: Hydrochlorothiazide 25 MG TAB PO SCH (10:45)
[2019-10-14] MEDS: Lisinopril 10 MG TAB PO SCH (10:46)
[2019-10-14] MEDS: Allopurinol 100 MG TAB PO SCH (10:46)
[2019-10-14] MEDS: Furosemide 20 MG TAB PO SCH ×2 (10:46→13:04)
[2019-10-14] MEDS: Apixaban 5 MG TAB PO SCH (10:46)
[2019-10-14] MEDS: predniSONE 20 MG TAB PO SCH (10:46)
--- NOTE | 2019-10-14 13:37 | NM ---
EXAM: CARDIAC SPECT HISTORY: Atrial fibrillation, cardiomyopathy, CHF, hypertension, diabetes, dyslipidemia TECHNIQUE: A myocardial perfusion scan was performed using the single isotope 2 day protocol with radha hnetium 99m sestamibi. [27 mCi] was injected intravenously for the rest exam followed by 32 mCifor the stress study. Pharmacologic stress with Lexiscan was monitored and interpreted by Dr. Andre FINDINGS: No fixed or reversible defects are seen. Gated SPECT LVEF: 54% Wall motion exam: Normal IMPRESSION: No evidence of reversible ischemia
--- NOTE | 2019-10-14 13:52 | PDOC.CPN ---
- Subjective Date: 10/14/19 Time: 13:52 Interval history: The pt seen and examined. No overnight events. No cardiac complaints. - Objective Allergies/Adverse Reactions: Allergies Allergy/AdvReac Type Severity Reaction Status Date / Time Penicillins Allergy Verified 09/15/19 20:48 Visit Medications: Current Medications Acetaminophen (Tylenol) 650 mg PO Q4H PRN PRN Reason: Headache/Fever/Mild Pain (1-3) Albuterol/Ipratropium (Duoneb) 3 ml NEB [id number] PRN PRN Reason: SOB &/or Wheezing Albuterol/Ipratropium (Duoneb) 3 ml NEB [id number] [facility] Last Admin: 10/14/19 12:57 Dose: 3 ml Allopurinol (Zyloprim) 100 mg PO BID [facility] Last Admin: 10/14/19 10:46 Dose: 100 mg Apixaban (Eliquis) 5 mg PO BID [facility] Last Admin: 10/14/19 10:46 Dose: 5 mg Artificial Tears (Liquitears 15ml Bottle) 1 drop EA EYE PRN PRN PRN Reason: Dry Eyes Last Admin: 10/12/19 15:11 Dose: 1 drop Atorvastatin Calcium (Lipitor) 40 mg PO [facility] Last Admin: 10/13/19 21:39 Dose: 40 mg Carvedilol (Coreg) 25 mg PO BID-[facility] Last Admin: 10/13/19 17:05 Dose: 25 mg Dextrose/Water (Dextrose 50%) 25 gm SLOW IVP PRN PRN PRN Reason: Hypoglycemia Furosemide (Lasix) 20 mg PO 0900,1400 [facility] Last Admin: 10/14/19 13:04 Dose: 20 mg Glucagon (Glucagon) 1 mg IM PRN PRN PRN Reason: Hypoglycemia Hydrochlorothiazide (Hydrochlorothiazide) 100 mg PO DAILY [facility] Last Admin: 10/14/19 10:45 Dose: 100 mg Insulin Glargine 30 units/ (Miscellaneous Medication) 0.3 mls @ 0 mls/hr SC [facility] Last Admin: 10/13/19 21:39 Dose: 0.3 mls Dextrose/Water (D5w) 1,000 mls @ 0 mls/hr IV .Q0M PRN PRN Reason: Hypoglycemia Insulin Human Lispro (Humalog) 0 units SC .MILD SLIDING SCALE PRN PRN Reason: Mild Correctional Scale Last Admin: 10/13/19 17:07 Dose: 6 unit Insulin Human Lispro (Humalog) 0 units SC .BEDTIME SLIDING SC PRN PRN Reason: Bedtime Correctional Scale Last Admin: 10/13/19 21:39 Dose: 3 unit Labetalol HCl (Normodyne) 20 mg SLOW IVP Q4H PRN PRN Reason: Hypertension Lisinopril (Zestril) 10 mg PO DAILY [facility] Last Admin: 10/14/19 10:46 Dose: 10 mg Metformin HCl (Glucophage) 1,000 mg PO BID [facility] Last Admin: 10/14/19 10:45 Dose: 1,000 mg Prednisone (Prednisone) 40 mg PO QA-[facility] Stop: 10/16/19 08:01 Last Admin: 10/14/19 10:46 Dose: 40 mg Sodium Chloride (Flush - Normal Saline) 10 ml IVF Q12HR [facility] Last Admin: 10/14/19 10:47 Dose: 10 ml Sodium Chloride (Flush - Normal Saline) 10 ml IVF PRN PRN PRN Reason: Saline Flush Last Admin: 10/13/19 06:27 Dose: 10 ml Tamsulosin HCl (Flomax) 0.4 mg PO DAILY [facility] Last Admin: 10/14/19 10:45 Dose: 0.4 mg Vital Signs & Weight: Vital Signs Temp Pulse Resp BP BP Pulse Ox 10/14/19 12:57 70 16 10/14/19 10:46 124/59 L 10/14/19 08:06 97.7 F 60 13 124/59 L 91 L 10/14/19 07:07 57 L 18 10/14/19 04:00 97.6 F 57 L 20 139/62 94 L Admit Weight 350 lb 7 oz Weight 333 lb 14.4 oz - Physical Exam General: alert & oriented x3 HEENT: mucus membranes moist Neck: supple neck Cardiac: regular rate and rhythm, S1/S2 Lungs: clear to auscultation, decreased breath sounds - Labs Result Diagrams: 10/13/19 10:21 10/14/19 04:48 Troponin/CKMB Troponin I Less than 0.010 ng/mL (< 0.028) 10/10/19 11:37 - Telemetry Sinus rhythms and dysrhythmias: sinus rhythm - Assessment/Plan Assessment/Plan: 1. Acute on Chronic Systolic HF - off LifeVest since EF 55-60%; On BBlocker, RAJ , and Lasix 2. Prox Afib - remains in SR; on BBlocker and Eliquis BID;waiting for stress test result 3. HTN - stabl 4. COPD with Home O2 2LNC - stable 5. HLD 6. DM type 2 - 7. KAILEY 8. Morbid Obesity - MAR reviewed * the pt will f/u with his [facility] in [place], [place]. * The pt can be d/chika home if stress test is normal Pt. seen and eval. by me > I agree with the A/P nby the PERL PROGRAMMER. The stress test is normal. Chest : clear. RRR. Okay for d/c.
[2019-10-14] MEDS ORDERED: Regadenoson 0.4 MG/5 ML SYRINGE ONE (15:54)
[2019-10-14] MEDS: Carvedilol 25 MG TAB PO SCH (17:31)
[2019-10-14 17:33] VITALS: BP 157/86; TEMP 99
[2019-10-14] MEDS: HumaLOG 300 UNITS/3 ML VIAL SC PRN (17:38)
--- NOTE | 2019-10-15 17:34 | EKG ---
Test Reason : Blood Pressure : / mmHG Vent. Rate : 062 BPM Atrial Rate : 062 BPM P-R Int : 228 ms QRS Dur : 094 ms QT Int : 410 ms P-R-T Axes : 047 007 -10 degrees QTc Int : 416 ms Sinus rhythm with 1st degree A-V block Low voltage QRS Nonspecific ST and T wave abnormality Abnormal ECG Confirmed by OZZIE ALMANZA M.D. ([id number]), web content editor JO VALERIO ([id number]) on 10/15/2019 5:33:42 PM Referred By: Confirmed By:OZZIE ALMANZA M.D.
== END 2019-10-14 20:00 | disposition home or self-care (01) ==
LOC: ERS 04:58 → INTOOBSV 06:24 → ERHOLD 06:24 → 2SE 08:06
PROVIDERS: ADMIT Family Medicine; ATTEND Family Medicine
DX: I11.0 Hypertensive heart disease with heart failure (principal); I50.21 Acute systolic (congestive) heart failure; J44.9 Chronic obstructive pulmonary disease, unspecified; I48.0 Paroxysmal atrial fibrillation; E11.9 Type 2 diabetes mellitus without complications; I16.0 Hypertensive urgency; E66.2 Morbid (severe) obesity with alveolar hypoventilation; Z68.42 Body mass index [BMI] 45.0-49.9, adult; Z79.4 Long term (current) use of insulin; Z79.899 Other long term (current) drug therapy; Z88.0 Allergy status to penicillin
CPT/HCPCS: 71045; 78452; 80048 ×4; 80053; 82565; 82962 ×5; 83735; 83880; 84484 ×2; 85014; 85018; 85025; 85049; 87324; 87449; 93005; 93017 ×2; 93306; 94640 ×6; 96374; 96376 ×5; 97110; 97116; 97139 ×7; 97530; 97535; 99285; A9500; G0378 ×5; 36415; 36416; J1815; J1940; J2785; J7512; J7620

== ENCOUNTER 2019-11-03 23:55 | Inpatient (IN) | payer MEDICARE ==
[2019-11-04] MEDS ORDERED: Ondansetron ODT 4 MG TAB PO PRN (03:49)
[2019-11-04] MEDS ORDERED: Lactated Ringer's 1,000 ML IV SCH ×2 (04:15)
[2019-11-04 04:21] VITALS: BMI 45.3
[2019-11-04] MEDS ORDERED: Dextrose 5% in Water 1,000 ML IV PRN (04:31)
[2019-11-04] MEDS ORDERED: Dextrose 50% Abboject 50 ML SYRINGE SLOW IVP PRN (04:31)
--- NOTE | 2019-11-04 04:45 | PDOC.FPRHP ---
- History of Present Illness Chief Complaint: Abd Pain, weakness, n/v History of Present Illness: Pt is a 79 yo M with PMH of pAfib, HFpEF, T2DM, HTN, and COPD presenting as tx from [place] for ARF. He went to ED d/t hypotension with SBP 80's yesterday AM and 1wk hx of weakness. Also reports 1 wk hx of suprapubic abd pain, diarrhea (5-6 epidsodes daily), and vomiting (2x yesterday). He reports today diarrhea has slowed w/ Lomotil and no longer nauseated. He denies ill contacts. He reports occasional dysuria and hesitancy. He denies fever/ chills. No recent travel or new foods. Recently started on anticoagulation for Afib, denies hematochezia, melena, hematuria. In [place], they attempted to give IVF but couldn't establish IV access. His BP there was normotensive. - Allergies/Adverse Reactions Allergies Allergy/AdvReac Type Severity Reaction Status Date / Time Penicillins Allergy Verified 09/15/19 20:48 - Home Medications Medication Instructions Recorded Confirmed Type Allopurinol 100 mg PO DAILY 09/15/19 11/04/19 History Furosemide [Lasix] 20 mg PO BID 09/15/19 11/04/19 History Omeprazole 20 mg PO DAILY 09/15/19 11/04/19 History Tamsulosin HCl 0.4 mg PO DAILY 09/15/19 11/04/19 History metFORMIN HCl [Metformin HCl] 1,000 mg PO BID 09/15/19 11/04/19 History Potassium Chloride [Klor-Con] 20 meq PO SEEPHYS 10/10/19 11/04/19 History Apixaban [Eliquis] 5 mg PO BID 60 Days #60 tab 10/11/19 11/04/19 Rx Atorvastatin Calcium [Lipitor] 40 mg PO HS 30 Days #30 tab 10/11/19 11/04/19 Rx Lisinopril [Zestril] 10 mg PO DAILY 30 Days #30 tab 10/11/19 11/04/19 Rx Carvedilol [Coreg] 25 mg PO BID-WM 30 Days #30 tab 10/12/19 11/04/19 Rx Digoxin [Lanoxin] 0.25 mg PO DAILY 11/04/19 11/04/19 History - History PMHx: HTN HLD T2DM Gout HFpEF pAfib BPH COPD PSHx: Hemorrhoidectomy FHx: DM 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 - Review of Systems General: denies: fever/chills, night sweats ENT: denies: nasal congestion, rhinorrhea Respiratory: denies: cough, congestion, shortness of breath Cardiovascular: denies: chest pain, palpitation, edema, orthopnea Gastrointestinal: reports: nausea, vomiting, diarrhea, abdominal pain. denies: constipation, GI bleeding Genitourinary: reports: dysuria. denies: incontinence, polyuria Skin: denies: rashes, lesions Musculoskeletal: denies: pain, tenderness, swelling Neurological: reports: weakness (generalized). denies: syncope - Vital signs VS: BP 91/69, T98.3, R22, P101, O296%RA - Physical Exam Constitutional: NAD, awake, alert and oriented -Constitutional: obese HEENT: EOMI, grossly normal hearing -HEENT: mild perioral cyanosis, dry MM Neck: no JVD Heart: RRR, normal S1/S2, no murmurs/rubs/gallops -Heart: distant heart sounds Lungs: CTAB, no respiratory distress, good air movement, no wheezing -Lungs: NC in place at 2L Abdomen: soft, bowel sounds present -Abdomen: mild suprapubic tenderness Musculoskeletal: normal structure, normal tone Neurological: no focal deficit Skin: no rash/lesions -Skin: skin tenting, cap refill >3 sec Heme/Lymphatic: no unusual bruising or bleeding, no purpura Psychiatric: normal mood and affect, intact recent and remote memory FMR H&P: Results - Labs Lab results: Laboratory Tests 11/03/19 11/03/19 11/03/19 22:20 22:20 22:20 WBC 9.6 RBC 4.67 L Hgb 12.4 L Hct 41.3 L MCV 88.4 Plt Count 179 Sodium 140 Potassium 4.5 Chloride 105 Carbon Dioxide 23 Anion Gap 17 BUN 49 H Creatinine 3.25 H Estimated GFR (MDRD) 18 Glucose 152 H Calcium 8.9 B-Natriuretic Peptide 25.0 FMR H&P: A/P - Problem List (1) Acute renal failure Current Visit: Yes Status: Acute (2) Normocytic anemia Current Visit: Yes Status: Acute Code(s): D64.9 - ANEMIA, UNSPECIFIED (3) BPH (benign prostatic hyperplasia) Current Visit: Yes Status: Chronic Code(s): N40.0 - BENIGN PROSTATIC HYPERPLASIA WITHOUT LOWER URINRY TRACT SYMP (4) Atrial fibrillation Current Visit: No Status: Chronic Code(s): I48.91 - UNSPECIFIED ATRIAL FIBRILLATION (5) COPD (chronic obstructive pulmonary disease) Current Visit: No Status: Chronic (6) Diabetes mellitus Current Visit: No Status: Chronic Code(s): E11.9 - TYPE 2 DIABETES MELLITUS WITHOUT COMPLICATIONS (7) HTN (hypertension) Current Visit: No Status: Chronic Code(s): I10 - ESSENTIAL (PRIMARY) HYPERTENSION (8) Gout Current Visit: Yes Status: Chronic Code(s): M10.9 - GOUT, UNSPECIFIED (9) Hyperlipidemia Current Visit: Yes Status: Chronic Code(s): E78.5 - HYPERLIPIDEMIA, UNSPECIFIED - Plan ARF 2/2 dehydration vs Medications: -baseline Cr 1.1 -recently started on Lisinopril <1 month ago and also had increase in Lasix dose from 20mg to 40mg. -FeNa pending -UA/UCx pending -5 day hx of n/v/d and clinical signs of dehydration -Will give LR at 150ml/hr and repeat BMP 1200 -Mg and Phos pending Normocytic Anemia: -Fe studies pending Diarrheal Illness: -r/o C.Diff with hospitalization <1 month ago. -per hx sounds like viral gastroenteritis HFpEF: -Echo 10/10 EF 55-60%, Grade 1/3 diastolic dysfunction -BNP 25 -will give above maintenance IVF and monitor closely for overload. -continue home Lasix pAfib: -on digoxin and eliquis -renally dose digoxin with ARF (25--75% of usual dose) -continue eliquis HTN: -hold Lisinopril and HCTZ -continue Coreg, KCl -IV Hydralazine prn COPD: -continue home meds and O2 at night. BPH: -continue Tamsulosin T2DM: -continue metformin -ACHS accuchecks -mild SSI HLD: -Continue home atorvastatin Gout: -continue home allopurinol -hold home meloxicam. DVT Ppx: Eliquis GI Ppx: Pepcid Code status: Full Dispo: Stable, LOS likely>48h. FMR H&P: Upper Level - Plan Date/Time: 11/04/19 2526 I, [], have evaluated this patient and agree with findings/plan as outlined by music intern resident. Pertinent changes/additions are listed here. Addendum - Attending - Attending Attestation Date/Time: 11/04/19 4783 I personally evaluated the patient and discussed the management with Dr. Dyer I agree with the History, Examination, Assessment and Plan documented above with any addition or exceptions noted below. 79 YOM with PMH of pAfib, HFpEF, T2DM, HTN, and COPD presenting as tx from [place] for ARF. Uncertain etiology at this point but could be 2/2 post- obstructive uropathy from BPH exacerbated by recent diarrhea and new medication (lisinopril). Could all be pre-renal from dehydration from recent dairrhea as well. UA obtained overnight and will perform a LOUIS & consider renal US & Nephrology consult if no improvement w/ IVFs. Continue IV rocephin for UTI.
[2019-11-04] MEDS ORDERED: hydrALAZINE 20 MG/ML VIAL SLOW IVP PRN (05:22)
[2019-11-04] MEDS ORDERED: Levalbuterol HCl 0.63 MG/3 ML NEB NEB PRN (05:25)
[2019-11-04] MEDS: Lactated Ringer's 1,000 ML IV SCH ×2 (06:15→09:59)
[2019-11-04 06:26] LABS: Bacteria/HPF 4+ HPF (None Seen); Bilirubin Negative (Negative); Blood, Urine Negative (Negative); Clarity Clear (Clear); Glucose, Urine (Dipstick) Normal (Negative); Leukocyte 250 Leu/uL (Negative); Nitrite 1+ (Negative); Protein, Urine (Dipstick) Negative (Neg-Trace); RBC/HPF 0-3 HPF (0-3); Squamous Epithelial 0-3 HPF (0-3); Urobilinogen Normal mg/dL (Less than 2)
[2019-11-04 06:39] LABS: Creatinine, Urine 138.4 mg/dL (63-166)
[2019-11-04] MEDS ORDERED: diphenhydrAMINE 25 MG CAP PO PRN (07:28)
[2019-11-04] MEDS ORDERED: diphenhydrAMINE 50 MG/ML VIAL IVP SCH (07:30)
[2019-11-04] MEDS ORDERED: Apixaban 5 MG TAB PO SCH ×2 (09:00→12:40)
[2019-11-04] MEDS: cefTRIAXone\\ROCEPHIN 2 GM in Sodium Chloride 0.9% 100 ML IVPB SCH (09:11)
[2019-11-04] MEDS: Furosemide 20 MG TAB PO SCH ×2 (09:12→21:01)
[2019-11-04] MEDS: Famotidine 20 MG TAB PO SCH (09:12)
[2019-11-04] MEDS: Allopurinol 100 MG TAB PO SCH (09:12)
[2019-11-04] MEDS: Tamsulosin HCl 0.4 MG CAP PO SCH (09:12)
[2019-11-04] MEDS: Carvedilol 25 MG TAB PO SCH ×2 (09:12→17:47)
[2019-11-04] MEDS: Digoxin 0.125 MG TAB PO SCH (09:12)
[2019-11-04] MEDS: HumaLOG 300 UNITS/3 ML VIAL SC PRN ×2 (11:15→16:25)
[2019-11-04 13:45] LABS: Phosphorus 3.5 mg/dL (2.3-4.7)
[2019-11-04] MEDS ORDERED: Apixaban 2.5 MG TAB PO SCH ×2 (13:45→16:00)
[2019-11-04 13:47] LABS: Digoxin 0.38 ng/mL (0.8-2.0)
[2019-11-04 13:48] LABS: Magnesium 1.5 mg/dL (1.6-2.6)
[2019-11-04 13:49] LABS: Anion Gap 14 mmol/L (10-20); BUN (Urea Nitrogen) 41 mg/dL (8.4-25.7); Calc. Creatinine Clearance 50 mL/min (70-130); Calcium 8.6 mg/dL (7.8-10.44); Carbon Dioxide 22 mmol/L (23-31); Chloride 105 mmol/L (98-107); Estimated GFR-MDRD 24; Glucose 196 mg/dL (83-110); Iron 64 ug/dL (65-175); Iron Binding Capacity, Total 274 mcg/dL (261-462); Potassium 4.3 mmol/L (3.5-5.1); Sodium 137 mmol/L (136-145)
[2019-11-04] MEDS: Atorvastatin Calcium 40 MG TAB PO SCH (21:01)
[2019-11-04] MEDS: Apixaban 2.5 MG TAB PO SCH (21:01)
[2019-11-04] MEDS: Montelukast Sodium 10 mg Tablet PO SCH (21:01)
--- NOTE | 2019-11-05 05:24 | PDOC.FM ---
- Subjective Subjective: Patient doing well this morning. Reports his weakness is greatly improved. Denies vomiting or diarrhea. - Objective Vital Signs & Weight: Vital Signs (12 hours) Temp Pulse Resp BP Pulse Ox 11/05/19 04:15 97.4 F L 58 L 18 157/91 H 97 11/05/19 00:17 97.3 F L 58 L 18 143/83 H 97 11/04/19 21:38 58 L 14 97 11/04/19 21:15 97.5 F L 62 16 133/77 96 11/04/19 20:15 96 Weight Weight 151.7 kg I&O: 11/03/19 11/04/19 11/05/19 06:59 06:59 06:59 Intake Total 1748 Output Total 825 Balance 923 Result Diagrams: 11/05/19 05:44 11/05/19 05:44 Phys Exam - Physical Examination Constitutional: NAD HEENT: moist MMs, sclera anicteric Neck: supple, full ROM Respiratory: no wheezing, no rales Cardiovascular: RRR, no significant murmur Gastrointestinal: soft, non-tender trace BLE non-pitting edema Neurological: non-focal, moves all 4 limbs Psychiatric: normal affect, A&O x 3 Skin: no rash, normal turgor Dx/Plan (1) Acute renal failure Status: Acute (2) Normocytic anemia Code(s): D64.9 - ANEMIA, UNSPECIFIED Status: Chronic (3) BPH (benign prostatic hyperplasia) Code(s): N40.0 - BENIGN PROSTATIC HYPERPLASIA WITHOUT LOWER URINRY TRACT SYMP Status: Chronic (4) Gout Code(s): M10.9 - GOUT, UNSPECIFIED Status: Chronic (5) Hyperlipidemia Code(s): E78.5 - HYPERLIPIDEMIA, UNSPECIFIED Status: Chronic (6) CHF (congestive heart failure) Code(s): I50.9 - HEART FAILURE, UNSPECIFIED Status: Chronic (7) Obstructive sleep apnea Code(s): G47.33 - OBSTRUCTIVE SLEEP APNEA (ADULT) (PEDIATRIC) Status: Chronic (8) Atrial fibrillation Code(s): I48.91 - UNSPECIFIED ATRIAL FIBRILLATION Status: Chronic (9) COPD (chronic obstructive pulmonary disease) Status: Chronic (10) Diabetes mellitus Code(s): E11.9 - TYPE 2 DIABETES MELLITUS WITHOUT COMPLICATIONS Status: Chronic (11) HTN (hypertension) Code(s): I10 - ESSENTIAL (PRIMARY) HYPERTENSION Status: Chronic - Plan Plan: #ARF 2/2 dehydration vs Medications: -baseline Cr 1.1 > 2.55 > 2.26, improved but still not at baseline -recently started on Lisinopril <1 month ago and also had increase in Lasix dose from 20mg to 40mg. -FeNa: 0.6% suggests pre-renal -5 day hx of n/v/d, clinical signs of dehydration improved with no reported vomiting or diarrhea; continue to encourage PO intake #Generalized Weakness -improved -PT rec possible rehab -post acute screen placed for CM #UTI -UA: 4+ bacteria, 250LE, 1+ nitrites, 11-20 WBC -Urine Cx pending -rocephin started 11/03 Normocytic Anemia: -Fe studies c/w anemia of chronic disease Diarrheal Illness: -C.Diff studies pending, patient reports he hasn't had a BM since he's been here -likely viral gastroenteritis HFpEF: -Echo 10/10 EF 55-60%, Grade 1/3 diastolic dysfunction -BNP 25 -will encourage PO intake at this time -continue home Lasix pAfib: -on digoxin and eliquis -renally dose digoxin with ARF (25--75% of usual dose): 0.0625mg po qd -continue eliquis renally dosed at 2.5mg BID HTN: -hold Lisinopril and HCTZ -continue Coreg, KCl -IV Hydralazine prn COPD: -continue home meds and O2 at night. BPH: -continue Tamsulosin T2DM: -hold metformin until kidney function improves -ACHS accuchecks -mild SSI HLD: -Continue home atorvastatin Gout: -continue home allopurinol -hold home meloxicam. DVT Ppx: Eliquis GI Ppx: Pepcid Code status: Full Dispo: Stable, inpatient for continued IV abx, monitoring of renal function, and CM to perform post acute screen for possible rehab Addendum - Attending - Attending Attestation Date/Time: 11/05/19 3210 I personally evaluated the patient and discussed the management with Dr. Hart. I agree with the History, Examination, Assessment and Plan documented above with any addition or exceptions noted below. Patient here for ARF in setting of diarrhea and diuretic use. His renal function continues to improve slowly. He is feeling better. Continue with mild fluid hydration. He is no longer having diarrhea, no concern for Cdiff at this time.
[2019-11-05] MEDS: HumaLOG 300 UNITS/3 ML VIAL SC PRN ×4 (05:37→21:22)
[2019-11-05 06:06] LABS: #Eosinphils 0.2 thou/uL (0.0-0.7); #Lymphocytes 1.8 thou/uL (1.20-3.40); #Monocytes 0.5 thou/uL (0.11-0.59); #Neutrophils 4.6 thou/uL (1.40-6.50); %Basophils 0.4 % (0.0-1.0); %Eosinophils 3.4 % (0.0-10.0); %Lymphocytes 24.8 % (21.0-51.0); %Monocytes 6.9 % (0.0-10.0); %Neutrophils 64.5 % (42.0-75.0); Hemoglobin 12.6 g/dL (14.0-18.0); Mean Corpuscular HGB CONC 32.7 g/dL (32.0-36.0); Mean Corpuscular Volume 88.7 fL (78.0-98.0); Mean Platelet Volume 10.9 fL (7.4-10.4); Platelet Count 160 thou/uL (130-400); RBC Distribution Width 13.3 % (11.5-14.5); Red Blood Cell (RBC) Count 4.35 mill/uL (4.70-6.10); White Blood Cell (WBC) Count 7.1 thou/uL (4.8-10.8)
[2019-11-05 06:33] LABS: Anion Gap 15 mmol/L (10-20); BUN (Urea Nitrogen) 35 mg/dL (8.4-25.7); Calc. Creatinine Clearance 57 mL/min (70-130); Calcium 8.8 mg/dL (7.8-10.44); Carbon Dioxide 26 mmol/L (23-31); Chloride 103 mmol/L (98-107); Estimated GFR-MDRD 28; Glucose 248 mg/dL (83-110); Potassium 4.6 mmol/L (3.5-5.1); Sodium 139 mmol/L (136-145)
[2019-11-05] MEDS: Apixaban 2.5 MG TAB PO SCH ×2 (08:49→21:17)
[2019-11-05] MEDS: cefTRIAXone\\ROCEPHIN 2 GM in Sodium Chloride 0.9% 100 ML IVPB SCH (08:49)
[2019-11-05] MEDS: Famotidine 20 MG TAB PO SCH (08:50)
[2019-11-05] MEDS: Allopurinol 100 MG TAB PO SCH (08:50)
[2019-11-05] MEDS: Carvedilol 25 MG TAB PO SCH ×2 (08:50→18:28)
[2019-11-05] MEDS: Digoxin 0.125 MG TAB PO SCH (08:50)
[2019-11-05] MEDS: Tamsulosin HCl 0.4 MG CAP PO SCH (08:50)
[2019-11-05] MEDS ORDERED: Sodium Chloride 0.9% 500 ML IV SCH (10:00)
[2019-11-05] MEDS: Montelukast Sodium 10 mg Tablet PO SCH (21:17)
[2019-11-05] MEDS: Atorvastatin Calcium 40 MG TAB PO SCH (21:17)
--- NOTE | 2019-11-06 05:24 | PDOC.FM ---
- Subjective Subjective: Patient doing okay this morning. Reports he feels weak again this morning. Discussed possibly going to rehab, patient states he does not desire going to rehab at this time but would be agreeable doing something outpatient. - Objective Vital Signs & Weight: Vital Signs (12 hours) Temp Pulse Resp BP BP Pulse Ox 11/06/19 04:33 97.7 F 50 L 18 169/81 H 96 11/06/19 00:00 97.8 F 59 L 20 142/80 H 94 L 11/05/19 20:00 97.7 F 61 20 150/64 H 94 L Weight Weight 151.7 kg I&O: 11/04/19 11/05/19 11/06/19 06:59 06:59 07:59 Intake Total 1748 2900 Output Total 825 1200 Balance 923 1700 Result Diagrams: 11/06/19 05:07 11/06/19 05:07 Phys Exam - Physical Examination Constitutional: NAD HEENT: moist MMs, sclera anicteric Neck: supple, full ROM Respiratory: no wheezing, clear to auscultation bilateral Cardiovascular: RRR, no significant murmur Gastrointestinal: soft, non-tender trace BLE edema Neurological: non-focal, moves all 4 limbs Psychiatric: normal affect, A&O x 3 Skin: no rash, normal turgor Dx/Plan (1) Acute renal failure Status: Acute (2) Normocytic anemia Code(s): D64.9 - ANEMIA, UNSPECIFIED Status: Chronic (3) BPH (benign prostatic hyperplasia) Code(s): N40.0 - BENIGN PROSTATIC HYPERPLASIA WITHOUT LOWER URINRY TRACT SYMP Status: Chronic (4) Gout Code(s): M10.9 - GOUT, UNSPECIFIED Status: Chronic (5) Hyperlipidemia Code(s): E78.5 - HYPERLIPIDEMIA, UNSPECIFIED Status: Chronic (6) CHF (congestive heart failure) Code(s): I50.9 - HEART FAILURE, UNSPECIFIED Status: Chronic (7) Obstructive sleep apnea Code(s): G47.33 - OBSTRUCTIVE SLEEP APNEA (ADULT) (PEDIATRIC) Status: Chronic (8) Atrial fibrillation Code(s): I48.91 - UNSPECIFIED ATRIAL FIBRILLATION Status: Chronic (9) COPD (chronic obstructive pulmonary disease) Status: Chronic (10) Diabetes mellitus Code(s): E11.9 - TYPE 2 DIABETES MELLITUS WITHOUT COMPLICATIONS Status: Chronic (11) HTN (hypertension) Code(s): I10 - ESSENTIAL (PRIMARY) HYPERTENSION Status: Chronic - Plan Plan: #ARF 2/2 dehydration vs Medications: -baseline Cr 1.1 > 2.55 > 2.26 >1.63, improved but still not at baseline -recently started on Lisinopril <1 month ago -FeNa: 0.6% suggests pre-renal, though patient has been on lasix -5 day hx of n/v/d, clinical signs of dehydration improved with no reported vomiting or diarrhea; continue to encourage PO intake #Generalized Weakness -improved -PT rec possible rehab -CM to HH/PT/OT outpatient #UTI -UA: 4+ bacteria, 250LE, 1+ nitrites, 11-20 WBC -Urine Cx suggests likely e coli, sensitivities pending -rocephin started 11/03, today is day 3 Normocytic Anemia: -Fe studies c/w anemia of chronic disease Diarrheal Illness: -C.Diff studies pending, patient reports he hasn't had a BM since he's been here -likely viral gastroenteritis HFpEF: -Echo 10/10 EF 55-60%, Grade 1/3 diastolic dysfunction -BNP 25 -will encourage PO intake at this time -continue home Lasix pAfib: -on digoxin and eliquis -renally dose digoxin with ARF (25--75% of usual dose): 0.0625mg po qd -continue eliquis renally dosed at 2.5mg BID HTN: -hold Lisinopril and HCTZ -continue Coreg, KCl -IV Hydralazine prn COPD: -continue home meds and O2 at night. BPH: -continue Tamsulosin T2DM: -hold metformin until kidney function improves -ACHS accuchecks -mild SSI HLD: -Continue home atorvastatin Gout: -continue home allopurinol -hold home meloxicam. DVT Ppx: Eliquis GI Ppx: Pepcid Code status: Full Dispo: Stable, inpatient for continued IV abx, monitoring of renal function, and CM help arrange outpatient HH/OT/PT Addendum - Attending - Attending Attestation Date/Time: 11/06/19 3725 I personally evaluated the patient and discussed the management with Dr. Hart. I agree with the History, Examination, Assessment and Plan documented above with any addition or exceptions noted below.
[2019-11-06 05:38] LABS: #Eosinphils 0.2 thou/uL (0.0-0.7); #Lymphocytes 2.2 thou/uL (1.20-3.40); #Monocytes 0.8 thou/uL (0.11-0.59); #Neutrophils 3.6 thou/uL (1.40-6.50); %Basophils 0.1 % (0.0-1.0); %Eosinophils 2.7 % (0.0-10.0); %Lymphocytes 32.4 % (21.0-51.0); %Monocytes 11.4 % (0.0-10.0); %Neutrophils 53.4 % (42.0-75.0); Mean Corpuscular HGB CONC 32.7 g/dL (32.0-36.0); Mean Corpuscular Hemoglobin 29.1 pg (27.0-31.0); Platelet Count 162 thou/uL (130-400); RBC Distribution Width 13.3 % (11.5-14.5); Red Blood Cell (RBC) Count 4.47 mill/uL (4.70-6.10); White Blood Cell (WBC) Count 6.8 thou/uL (4.8-10.8)
[2019-11-06 05:57] LABS: Anion Gap 13 mmol/L (10-20); BUN (Urea Nitrogen) 24 mg/dL (8.4-25.7); Calc. Creatinine Clearance 79 mL/min (70-130); Calcium 8.8 mg/dL (7.8-10.44); Carbon Dioxide 25 mmol/L (23-31); Chloride 107 mmol/L (98-107); Estimated GFR-MDRD 41; Glucose 171 mg/dL (83-110); Potassium 4.2 mmol/L (3.5-5.1); Sodium 141 mmol/L (136-145)
[2019-11-06] MEDS: HumaLOG 300 UNITS/3 ML VIAL SC PRN ×3 (06:15→20:39)
[2019-11-06] MEDS ORDERED: Lactated Ringer's 500 ML IV SCH (07:45)
[2019-11-06] MEDS: Digoxin 0.125 MG TAB PO SCH (09:56)
[2019-11-06] MEDS: cefTRIAXone\\ROCEPHIN 2 GM in Sodium Chloride 0.9% 100 ML IVPB SCH (09:56)
[2019-11-06] MEDS: Allopurinol 100 MG TAB PO SCH (09:56)
[2019-11-06] MEDS: Famotidine 20 MG TAB PO SCH (09:57)
[2019-11-06] MEDS: Carvedilol 25 MG TAB PO SCH ×2 (09:57→18:33)
[2019-11-06] MEDS: Tamsulosin HCl 0.4 MG CAP PO SCH (09:57)
[2019-11-06] MEDS: Apixaban 2.5 MG TAB PO SCH ×2 (09:57→20:38)
[2019-11-06] MEDS: Amlodipine 10 MG TAB PO SCH (10:04)
[2019-11-06] MEDS: Montelukast Sodium 10 mg Tablet PO SCH (20:37)
[2019-11-06] MEDS: Atorvastatin Calcium 40 MG TAB PO SCH (20:37)
[2019-11-07 05:15] LABS: #Eosinphils 0.3 thou/uL (0.0-0.7); #Monocytes 0.6 thou/uL (0.11-0.59); #Neutrophils 3.5 thou/uL (1.40-6.50); %Basophils 0.6 % (0.0-1.0); %Eosinophils 4.1 % (0.0-10.0); %Lymphocytes 31.7 % (21.0-51.0); %Neutrophils 54.6 % (42.0-75.0); Hemoglobin 12.9 g/dL (14.0-18.0); Mean Corpuscular HGB CONC 32.6 g/dL (32.0-36.0); Mean Corpuscular Hemoglobin 29.1 pg (27.0-31.0); Mean Corpuscular Volume 89.2 fL (78.0-98.0); Mean Platelet Volume 10.5 fL (7.4-10.4); Platelet Count 170 thou/uL (130-400); RBC Distribution Width 13.4 % (11.5-14.5); Red Blood Cell (RBC) Count 4.45 mill/uL (4.70-6.10); White Blood Cell (WBC) Count 6.4 thou/uL (4.8-10.8)
[2019-11-07] MEDS: HumaLOG 300 UNITS/3 ML VIAL SC PRN (05:25)
[2019-11-07 05:36] LABS: Anion Gap 13 mmol/L (10-20); BUN (Urea Nitrogen) 18 mg/dL (8.4-25.7); Calc. Creatinine Clearance 77 mL/min (70-130); Calcium 8.8 mg/dL (7.8-10.44); Carbon Dioxide 28 mmol/L (23-31); Chloride 104 mmol/L (98-107); Estimated GFR-MDRD 40; Glucose 226 mg/dL (83-110); Potassium 4.7 mmol/L (3.5-5.1); Sodium 140 mmol/L (136-145)
--- NOTE | 2019-11-07 06:28 | PDOC.FM ---
- Subjective Subjective: Pt doing well this morning, on acute events overnight, eager to be discharged home. States is urinating without difficulty. Had 2 large BM in past 24 hours, tolerating PO well without n/v. No fever/chills, Cp, SOB, n/v. Ambulating with assistance. - Objective MAR Reviewed: Yes Vital Signs & Weight: Vital Signs (12 hours) Temp Pulse Resp BP BP Pulse Ox 11/07/19 05:00 97.7 F 56 L 20 157/75 H 96 11/06/19 21:06 97.6 F 55 L 18 162/88 H 98 Weight Weight 151.7 kg I&O: 11/05/19 11/06/19 11/07/19 05:59 06:59 06:59 Intake Total 1700 Output Total 1200 Balance 500 Result Diagrams: 11/07/19 05:04 11/07/19 05:04 Phys Exam - Physical Examination Constitutional: NAD (resting comfortably, good spirits) HEENT: moist MMs Neck: no nodes, supple Respiratory: no wheezing, no rales, no rhonchi, clear to auscultation bilateral Cardiovascular: RRR, no significant murmur, no rub Gastrointestinal: soft, non-tender, no distention, positive bowel sounds Musculoskeletal: no edema Psychiatric: normal affect Dx/Plan (1) Acute renal failure Status: Acute (2) CHF (congestive heart failure) Code(s): I50.9 - HEART FAILURE, UNSPECIFIED Status: Chronic (3) Diabetes mellitus Code(s): E11.9 - TYPE 2 DIABETES MELLITUS WITHOUT COMPLICATIONS Status: Chronic (4) HTN (hypertension) Code(s): I10 - ESSENTIAL (PRIMARY) HYPERTENSION Status: Chronic - Plan Plan: 79yo CM with h/o CHF, DMII, HTn, COPD, pAfib presents for ARF #ARF on CKDII 2/2 dehydration vs Medications: - baseline Cr 1.1 > 2.55 > 2.26 >1.68, improving - recently started on Lisinopril <1 month ago - FeNa: 0.6% suggests pre-renal, though patient has been on lasix - 5 day hx of n/v/d, clinical signs of dehydration, improved, suspected viral gastroenteritis contributing, sxs now resolved and tolerating PO well #Generalized Weakness - improved, pt declined rehab, CM to assist with HH/PT/OT outpatient #UTI, resolved - UA: 4+ bacteria, 250LE, 1+ nitrites, 11-20 WBC - Urine Cx E coli, suspec to rocephin - s/p rocephin x3d #Normocytic Anemia -Fe studies c/w anemia of chronic disease # Diarrheal Illness - resolved, suspected viral gastroenteritis, contributing to ARF # HFpEF -Echo 10/10 EF 55-60%, Grade 1/3 diastolic dysfunction -BNP 25, cont mariano lasix, no s/s of exacerbation at this time # pAfib -on digoxin and eliquis -renally dose digoxin with ARF (25--75% of usual dose): 0.0625mg po qd -continue eliquis renally dosed at 2.5mg BID -> will increase dose to 5mg BID once renal function improves #HTN - hold Lisinopril and HCTZ - continue Coreg, KCl. Started on Norvasc. Will likely cont lisinopril on d/c but hold HCTZ - Will need close OP f/u - IV Hydralazine prn #COPD -continue home meds and O2 at night, no s/s of acute exacerbation #BPH - continue Tamsulosin #T2DM -hold metformin until kidney function improves -ACHS accuchecks -mild SSI #HLD -Continue home atorvastatin #Gout -continue home allopurinol -hold home meloxicam. PCP: Marii farnsworth [place] Code: Full DVT Ppx: Eliquis GI Ppx: Pepcid IVF: SL Dispo: Stable, improved. Cont to monitor renal function, and CM help arrange outpatient HH/OT/PT. Anticipate discharge in next 1-2days. Addendum - Attending - Attending Attestation Date/Time: 11/07/19 1279 I personally evaluated the patient and discussed the management with Dr. Andrade. I agree with the History, Examination, Assessment and Plan documented above with any addition or exceptions noted below. Patient doing well. Renal function continues to normalize. He will be educated on adequate PO intake and should be stable for discharge today.
[2019-11-07] MEDS: Allopurinol 100 MG TAB PO SCH (09:33)
[2019-11-07] MEDS: Tamsulosin HCl 0.4 MG CAP PO SCH (09:34)
[2019-11-07] MEDS: Digoxin 0.125 MG TAB PO SCH (09:34)
[2019-11-07] MEDS: Apixaban 2.5 MG TAB PO SCH (09:34)
[2019-11-07] MEDS: Amlodipine 10 MG TAB PO SCH (09:34)
[2019-11-07] MEDS: Famotidine 20 MG TAB PO SCH (09:34)
[2019-11-07] MEDS: Carvedilol 25 MG TAB PO SCH (09:35)
[2019-11-07] MEDS ORDERED: Cefdinir 300 MG CAP PO SCH ×2 (10:30→21:00)
[2019-11-07 11:22] VITALS: BP 160/73
[2019-11-07 16:42] VITALS: TEMP 97.8
--- NOTE | 2019-11-08 05:53 | DIS ---
DATE OF ADMISSION: 11/04/2019 DATE OF DISCHARGE: 11/07/2019 RESIDENT: Nikhil Andrade MD ADMITTING ATTENDING: Marito Jones MD DISCHARGE ATTENDING: Tank Johnson MD. CONSULTS: None. PROCEDURES: None. PRIMARY DIAGNOSES: 1. Acute renal failure on chronic kidney disease 2, secondary to dehydration caused by medications as well as suspected viral gastroenteritis, resolved. 2. Acute complicated urinary tract infection. 3. Generalized weakness. SECONDARY DIAGNOSES: 1. Normocytic anemia of chronic disease. 2. Diarrheal illness, suspected viral gastroenteritis, resolved. 3. Heart failure, preserved ejection fraction without acute exacerbation. 4. Paroxysmal atrial fibrillation. 5. Hypertension. 6. Chronic obstructive pulmonary disease. 7. Benign prostatic hypertrophy. 8. Type 2 diabetic. 9. Hyperlipidemia. 10. Gout. DISCHARGE MEDICATIONS: 1. Metformin 1000 mg p.o. b.i.d. 2. Lasix 20 mg p.o. b.i.d. 3. Prilosec 20 mg p.o. daily. 4. Allopurinol 100 mg p.o. daily. 5. Flomax 0.4 mg p.o. daily. 6. Potassium chloride 20 mEq p.o. as directed. 7. Eliquis 5 mg p.o. b.i.d. 8. Atorvastatin 40 mg p.o. at bedtime. 9. Lisinopril 10 mg p.o. daily. 10. Coreg 25 mg p.o. b.i.d. 11. Digoxin 0.25 mg p.o. daily. 12. Norvasc 10 mg p.o. daily. 13. Cefdinir 300 mg p.o. b.i.d. x4 days. DISCONTINUED MEDICATION: Hydrochlorothiazide. HISTORY OF PRESENT ILLNESS AND HOSPITAL COURSE: The patient is pleasant 79-year -old male with past medical historyof paroxysmal AFib, heart failure with preserved ejection fraction, type 2 diabetes, hypertension, COPD, who presented as a transfer from [place] for acute renal failure. In the emergency department, he was found to be mildly hypotensive with systolic blood pressure in the 80s and states that he had 1 week of suprapubic abdominal pain, diarrhea, 5-6 episodes per day of vomiting. The patient stated that the diarrhea had begun to resolve by the time of admission and did report occasional dysuria and hesitancy. No fevers, no chills. The patient was recently started on anticoagulation for periods of atrial fibrillation, but denied any hematochezia, melena, or hematuria. The patient was recently started on Lasix, lisinopril, hydrochlorothiazide, within 1 month of presentation. The patient has had multiple hospitalizations in the past for acute CHF exacerbation and this new paroxysmal AFib. The patient was then admitted for further evaluation and management of acute renal failure. On the floor, the patient was given gentle IV fluid boluses over the subsequent days of hospitalization due to his acute renal failure. Fractional excretion of sodium was 0.6, suggesting prerenal in nature, likely secondary to viral gastroenteritis, dehydration secondary to diarrhea as well as medications contributing to his CRISTA including hydrochlorothiazide, lisinopril, and Lasix. The patient's nephrotoxic medications were held including his metformin, lisinopril and hydrochlorothiazide. The patient was monitored and his renal function improved from a creatinine of 2.55 to 1.68 at the time of discharge. This was very near the patient's baseline of approximately 1.2 with GFR greater than 60. His GFR was 40 at the time of discharge. The patient was instructed that he does need to continue a fluid-restricted diet secondary to his CHF, however, does need a consistent fluid intake of approximately 1800 mL per day. The patient was instructed that his hydrochlorothiazide will continue to be held. The patient can restart his lisinopril, Lasix and metformin. The patient will need continued outpatient followup for monitoring of his renal function and electrolytes. The patient also had addition of amlodipine to his medication regimen for hypertension and tolerated this well. The patient was also noted to have generalized weakness and deconditioning likely secondary to his chronic medical conditions and recent multiple hospitalizations. It was suggested the patient present to inpatient rehab for further strengthening. However, the patient declined and said that he would like to go home with home health, PT and OT. Thus Case Management was consulted and this was arranged. The patient was also presented with a complicated UTI with a UA showing 4+ bacteria, nitrates, leukocyte esterase, and a urine culture showed E. coli susceptible to Rocephin. He was given 3 days of Rocephin in the hospital and sent home on an Omnicef for additional 4 days for total of 7 day course. The patient also noted to have diarrheal illness prior to presentation. However, this was resolved during his hospitalization and he had no recurrent diarrhea. The patient does have a history of heart failure, preserved ejection fraction, AFib, COPD and type 2 diabetes. All these chronic medical conditions were controlled with his home medications with no acute flares or changes. At the time of discharge, the patient was at his baseline voiding and stooling well, tolerating p.o. well. The patient is on Eliquis for paroxysmal atrial fibrillation. This dosing was decreased to renally dose to 2.5 mg twice daily while in the hospital until the recovery of his kidneys and his GFR increased to greater than 25, and thus the patient can be restarted on his normal Eliquis dose of 5 mg b.i.d. This was instructed to the patient in discharge instructions. DISCHARGE PLAN: Discussed with patient at bedside who voiced agreement in understanding as well as need for close outpatient followup for monitoring of electrolytes and renal function. If the patient's creatinine continues, may consider changing blood pressure medications to less nephrotoxic, if possible. The patient was then discharged home to self-care. DISPOSITION: Stable. DISCHARGE INSTRUCTIONS: 1. Location: Home. 2. Diet: Heart healthy, fluid-restricted, low-sodium. 3. Activity: As tolerated. 4. Followup: The patient follow with the primary care physician within 1 week of discharge. Job ID: [id number] [email or web address]
== END 2019-11-07 17:12 | disposition home or self-care (01) | DRG 683 ==
LOC: SURG A 11-04 00:04
PROVIDERS: ADMIT Emergency Medicine; ATTEND Emergency Medicine
DX: N17.9 Acute kidney failure, unspecified (principal); N39.0 Urinary tract infection, site not specified; I13.0 Hypertensive heart and chronic kidney disease with heart failure and stage 1 through stage 4 chronic kidney disease, or unspecified chronic kidney disease; I50.32 Chronic diastolic (congestive) heart failure; D63.1 Anemia in chronic kidney disease; E11.22 Type 2 diabetes mellitus with diabetic chronic kidney disease; I95.9 Hypotension, unspecified; T50.1X5A Adverse effect of loop [high-ceiling] diuretics, initial encounter; T50.2X5A Adverse effect of carbonic-anhydrase inhibitors, benzothiadiazides and other diuretics, initial encounter; T46.4X5A Adverse effect of angiotensin-converting-enzyme inhibitors, initial encounter; J44.9 Chronic obstructive pulmonary disease, unspecified; M10.9 Gout, unspecified; G47.33 Obstructive sleep apnea (adult) (pediatric); N18.2 Chronic kidney disease, stage 2 (mild); I48.0 Paroxysmal atrial fibrillation; A08.4 Viral intestinal infection, unspecified; N40.0 Benign prostatic hyperplasia without lower urinary tract symptoms; E86.0 Dehydration; D64.9 Anemia, unspecified; E66.9 Obesity, unspecified; Z79.01 Long term (current) use of anticoagulants; Z88.0 Allergy status to penicillin
CPT/HCPCS: 36415; 36416; 80048; 80162; 81003; 81015; 82570; 82728; 83540; 83550; 83735; 84100; 84300; 85025; 87077; 87086; 87186; 94640; J0696; J3490; J7614

== ENCOUNTER 2019-11-25 22:04 | Inpatient (IN) | payer MEDICARE ==
[2019-11-25] MEDS ORDERED: DIGOXIN IMMUNE FAB IVPB SCH (22:45)
[2019-11-25] MEDS ORDERED: SODIUM CHLORIDE 0.9% IVPB SCH (22:45)
[2019-11-25] MEDS ORDERED: diphenhydrAMINE 50 MG/ML VIAL ONE (23:11)
[2019-11-25] MEDS ORDERED: methylPREDNISolone Sod Succ/PF 125 MG/2 ML VIAL ONE (23:11)
[2019-11-25 23:30] LABS: Bilirubin Negative (Negative); Blood, Urine Negative (Negative); Clarity Clear (Clear); Glucose, Urine (Dipstick) Normal (Negative); Leukocyte 75 Leu/uL (Negative); Nitrite Negative (Negative); Protein, Urine (Dipstick) 10 mg/dL (Neg-Trace); RBC/HPF 0-3 HPF (0-3); Squamous Epithelial 0-3 HPF (0-3); Urobilinogen Normal mg/dL (Less than 2)
[2019-11-25 23:31] LABS: Bacteria/HPF 1+ HPF (None Seen)
--- NOTE | 2019-11-25 23:37 | PDOC.FPRHP ---
- History of Present Illness Chief Complaint: Feeling unwell History of Present Illness: Mr. Hogan is a 79yoM who presented to the ED at the recommendation of his PCP as a transfer from [facility] for ARF/dig toxicity. He has a PMH significant for Afib, HFpEF, DMII, HTN, and COPD. He states he had been feeling nauseated and unwell for approximately 24 hours and he hadn't made urine in about 24 hours. He went to his PCP, Abimbola Mathias NP, at [facility] today. She recommended he come to the ER because of his digoxin level. He has a home health nurse that comes to help him with medications. He has felt weak overall and "just wasn't right." Endorses one episode of vomiting yesterday. Endorses constipation, denies diarrhea. Denies any chest pain, abd pain, palpitations. Patient is on digoxin and eliquis for atrial fibrillation. Denies any hematochezia, melena, or hematuria. ED Course: methylprednisolone 125mg IV, benadryl 50mg IV, digiFab 160mg IV - Allergies/Adverse Reactions Allergies Allergy/AdvReac Type Severity Reaction Status Date / Time Penicillins Allergy Verified 09/15/19 20:48 - Home Medications Medication Instructions Recorded Confirmed Type Allopurinol 100 mg PO DAILY 09/15/19 11/26/19 History Furosemide [Lasix] 20 mg PO BID 09/15/19 11/26/19 History Omeprazole 20 mg PO DAILY 09/15/19 11/26/19 History Tamsulosin HCl 0.4 mg PO DAILY 09/15/19 11/26/19 History metFORMIN HCl [Metformin HCl] 1,000 mg PO BID 09/15/19 11/26/19 History Potassium Chloride [Klor-Con] 20 meq PO SEEPHYS 10/10/19 11/26/19 History Apixaban [Eliquis] 5 mg PO BID 60 Days #60 tab 10/11/19 11/26/19 Rx Atorvastatin Calcium [Lipitor] 40 mg PO HS 30 Days #30 tab 10/11/19 11/26/19 Rx Carvedilol [Coreg] 25 mg PO BID-WM 30 Days #30 tab 10/12/19 11/26/19 Rx Digoxin [Lanoxin] 0.25 mg PO DAILY 11/04/19 11/26/19 History Amlodipine [Norvasc] 10 mg PO DAILY #30 tab 11/07/19 11/26/19 Rx Lisinopril [Zestril] 10 mg PO DAILY 11/26/19 11/26/19 History - History PMHx: HTN, HLD, T2DM, Gout, HFpEF, pAfib, BPH, COPD PSHx: Hemorrhoidectomy FHx: DM Social: Denies tobacco use, Former etoh abuse (used to drink about 20yrs ago), and denies drug use. Lives at home,has home health nurses who help take care of him and medication administration - Review of Systems General: reports: fatigue. denies: fever/chills, weight/appetite/sleep changes , night sweats Eyes: denies: vision changes ENT: denies: nasal congestion, rhinorrhea Respiratory: reports: shortness of breath. denies: cough, congestion Cardiovascular: denies: chest pain, palpitation, edema Gastrointestinal: reports: nausea, vomiting, constipation. denies: diarrhea, abdominal pain Genitourinary: denies: dysuria Skin: denies: rashes Musculoskeletal: denies: pain, tenderness, stiffness Neurological: reports: weakness - Vital signs BP: 184/64, Pulse: 63, Resp: 21, Temp: 97.7 (Oral), Pain: 0, O2 sat: 96 on ( Room Air), Time: 11/25/2019 23:42. Weight 153kg BP: 149/75, Pulse: 59, Resp: 16, Temp: 97.8 (Oral), Pain: 0, O2 sat: 98 on ( Room Air), Time: 11/25/2019 22:14. - Physical Exam Constitutional: NAD, awake, alert and oriented, well developed HEENT: normocephalic and atraumatic, PERRLA, EOMI, grossly normal vision, grossly normal hearing, MMM, good dention Neck: supple, FROM, trachea midline Chest: no-tender to palpation Heart: normal S1/S2, no murmurs/rubs/gallops, pulses present, no edema -Heart: irregularly irregular Lungs: CTAB Abdomen: soft, non-tender, bowel sounds present Musculoskeletal: normal structure Neurological: no focal deficit Skin: good turgor, capillary refill <2 seconds -Skin: erythematous rash in skin folds Heme/Lymphatic: no unusual bruising or bleeding Psychiatric: normal mood and affect FMR H&P: Results - Labs Lab results: Urine Ketones Negative mg/dL (Negative) 11/25/19 22:57 Urine Blood Negative (Negative) 11/25/19 22:57 Urine Nitrite Negative (Negative) 11/25/19 22:57 Ur Leukocyte Esterase 75 Dalia/uL (Negative) A 11/25/19 22:57 Urine RBC 0-3 HPF (0-3) 11/25/19 22:57 Urine WBC 4-6 HPF (0-3) A 11/25/19 22:57 Ur Squamous Epith Cells 0-3 HPF (0-3) 11/25/19 22:57 Urine Bacteria 1+ HPF (None Seen) A 11/25/19 22:57 - Radiology Interpretation Other Status: image reviewed by me (EKG: atrial fibrillation with competing junctional pacemaker; low voltage QRS; ST & T wave abnormality c/w digitalis effect), report reviewed by me FMR H&P: A/P - Problem List (1) Acute renal failure Current Visit: No Status: Acute (2) Morbid obesity Current Visit: No Status: Acute Code(s): E66.01 - MORBID (SEVERE) OBESITY DUE TO EXCESS CALORIES (3) BPH (benign prostatic hyperplasia) Current Visit: No Status: Chronic Code(s): N40.0 - BENIGN PROSTATIC HYPERPLASIA WITHOUT LOWER URINRY TRACT SYMP (4) CHF (congestive heart failure) Current Visit: No Status: Chronic Code(s): I50.9 - HEART FAILURE, UNSPECIFIED (5) COPD (chronic obstructive pulmonary disease) Current Visit: No Status: Chronic (6) Diabetes mellitus Current Visit: No Status: Chronic Code(s): E11.9 - TYPE 2 DIABETES MELLITUS WITHOUT COMPLICATIONS (7) Gout Current Visit: No Status: Chronic Code(s): M10.9 - GOUT, UNSPECIFIED (8) HTN (hypertension) Current Visit: No Status: Chronic Code(s): I10 - ESSENTIAL (PRIMARY) HYPERTENSION (9) Hyperlipidemia Current Visit: No Status: Chronic Code(s): E78.5 - HYPERLIPIDEMIA, UNSPECIFIED - Plan Acute Renal 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 Bun/Cr:41/6.7. s/p digFab in the ER. - Will need close monitoring for minimum of 72hrs since getting Davide fragments - Electrolytes wnl; Mg/Phos pending. Will continue to monitor AM labs for any derangements - Continuous cardiac monitoring - EKG showing afib with ST/T wave abnormalities c/w digitalis effect. Patient is at higher risk of arrhythmias due to age and co-morbidities. - Will renally dose medications - Will start gentle IVF - Can consider nephro consult if renal failure does not improve HFpEF, not in exacerbation Echo 10/11/19 EF 55-60%, Grade 1/3 diastolic dysfunction - Will hold lasix for now pAfib On digoxin and eliquis - Holding digoxin. s/p digfab. - Continue eliquis - Continuous cardiac monitoring Intertrigo - Rash in groin/skin folds. Will give ketoconazole cream. Normocytic Anemia H/H at baseline, will continue to monitor HTN - Hold Lisinopril and HCTZ - Continue Coreg - IV Hydralazine prn COPD - Continue home meds and O2 at night BPH - Continue Tamsulosin T2DM - hold metformin, ACHS accuchecks, mild SSI HLD - Continue home atorvastatin Gout - Hold home meloxicam, allopurinol Dispo: admit to IMCU, inpt; LOS > 48hrs VTE: eliquis Diet: HH Code: FULL PCP: ZOLTAN Katz, [facility] Case discussed with Dr. Jones Production Control Expert Kim Gonzalez helped to scribe the note above; Note completed by Zoë Dyer, PGY2 FMR H&P: Upper Level - Plan Date/Time: 11/25/19 2334 I, [], have evaluated this patient and agree with findings/plan as outlined by property management intern resident. Pertinent changes/additions are listed here.
[2019-11-26] MEDS ORDERED: Ondansetron PF 4 MG/2 ML Vial IVP PRN (00:13)
[2019-11-26] MEDS ORDERED: Ondansetron ODT 4 MG TAB PO PRN (00:13)
[2019-11-26] MEDS ORDERED: Acetaminophen 650 MG Suppository PR PRN (00:13)
[2019-11-26] MEDS ORDERED: Acetaminophen 325 MG TAB PO PRN (00:13)
[2019-11-26 00:38] LABS: Magnesium 1.3 mg/dL (1.6-2.6); Phosphorus 3.6 mg/dL (2.3-4.7)
[2019-11-26] MEDS ORDERED: Dextrose 5% in Water 1,000 ML IV PRN (00:47)
[2019-11-26] MEDS ORDERED: Dextrose 50% Abboject 50 ML SYRINGE SLOW IVP PRN (00:47)
[2019-11-26] MEDS ORDERED: Magnesium 2 GM/50 ML 2 GM in Premix Bag 1 BAG IVPB SCH ×2 (01:00→12:15)
[2019-11-26] MEDS ORDERED: Lactated Ringer's 1,000 ML IV SCH ×2 (01:00→09:39)
[2019-11-26 01:08] LABS: Creatinine, Urine 170.46 mg/dL (63-166)
[2019-11-26] MEDS ORDERED: hydrALAZINE 20 MG/ML VIAL SLOW IVP PRN (01:17)
[2019-11-26 02:01] VITALS: BMI 45.0
[2019-11-26 05:32] LABS: #Eosinphils 0.3 thou/uL (0.0-0.7); #Lymphocytes 2.5 thou/uL (1.20-3.40); #Monocytes 0.9 thou/uL (0.11-0.59); #Neutrophils 5.9 thou/uL (1.40-6.50); %Basophils 0.3 % (0.0-1.0); %Eosinophils 2.7 % (0.0-10.0); %Lymphocytes 25.9 % (21.0-51.0); %Monocytes 9.4 % (0.0-10.0); %Neutrophils 61.7 % (42.0-75.0); Hemoglobin 12.2 g/dL (14.0-18.0); Mean Corpuscular HGB CONC 33.1 g/dL (32.0-36.0); Mean Corpuscular Hemoglobin 29.1 pg (27.0-31.0); Mean Platelet Volume 10.6 fL (7.4-10.4); Platelet Count 169 thou/uL (130-400); RBC Distribution Width 13.4 % (11.5-14.5); Red Blood Cell (RBC) Count 4.19 mill/uL (4.70-6.10); White Blood Cell (WBC) Count 9.6 thou/uL (4.8-10.8)
[2019-11-26 05:53] LABS: Anion Gap 20 mmol/L (10-20); BUN (Urea Nitrogen) 40 mg/dL (8.4-25.7); Calc. Creatinine Clearance 19 mL/min (70-130); Carbon Dioxide 16 mmol/L (23-31); Chloride 107 mmol/L (98-107); Estimated GFR-MDRD 8; Glucose 114 mg/dL (83-110); Potassium 3.7 mmol/L (3.5-5.1); Sodium 139 mmol/L (136-145)
--- NOTE | 2019-11-26 07:09 | PDOC.FM ---
- Subjective Subjective: Reports he feels good. Denies SOB. Reports LE edema. Alert, poor historian. - Objective MAR Reviewed: Yes Vital Signs & Weight: Vital Signs (12 hours) Temp Resp BP Pulse Ox 11/26/19 04:00 20 96 11/26/19 03:24 97.4 F L 11/26/19 03:00 22 H 145/55 H 11/26/19 02:01 24 H 11/26/19 02:00 96 11/26/19 01:30 97.5 F L Weight Weight 150.649 kg Most Recent Monitor Data Heart Rate from ECG 60 NIBP 119/52 NIBP BP-Mean 74 Respiration from ECG 16 SpO2 91 I&O: 11/25/19 11/26/19 11/27/19 06:59 06:59 06:59 Intake Total 713 Output Total 125 Balance 588 Result Diagrams: 11/26/19 05:21 11/26/19 05:21 Phys Exam - Physical Examination Constitutional: NAD HEENT: moist MMs Neck: supple Respiratory: no wheezing, clear to auscultation bilateral Cardiovascular: RRR Gastrointestinal: soft, non-tender Musculoskeletal: edema present (2+ b/l pitting) Neurological: moves all 4 limbs Psychiatric: normal affect Dx/Plan - Plan Plan: 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 s/p digFab in the ER. - EKG with classic Dig toxicity findings. - Renal function not improved this AM, consulted nephrology. - Hold Lasix, monitor strict I&Os due to hx of CHF - Continuous cardiac monitoring - IVF @75 - Renal US ordered HFpEF, not in exacerbation - Echo 10/11/19 EF 55-60%, Grade 1/3 diastolic dysfunction - Hold lasix Paroxysmal Afib - See Above for plan - Continuous cardiac monitoring Intertrigo - Rash in groin/skin folds. Will give ketoconazole cream. Normocytic Anemia - H/H at baseline HTN - Hold Lisinopril and HCTZ - Continue Coreg COPD - Continue home meds and O2 at night BPH - Continue Tamsulosin T2DM - Hold metformin - ACHS accuchecks, mild SSI HLD - Continue home atorvastatin Gout - Hold home meloxicam, allopurinol DVT ppx: Eliquis Diet: HH Code Status: FULL PCP: ZOLTAN Katz, [facility] Addendum - Attending - Attending Attestation Date/Time: 11/26/19 1140 I personally evaluated the patient and discussed the management with Dr. Mena I agree with the History, Examination, Assessment and Plan documented above with any addition or exceptions noted below - Patient without complaint. Denies any pain. Afebrile VSS. A/P: 1) ARF - nephrology consulted; continue gentle IVF. 2) Digoxin toxicity - received digfab; continue to monitor 3) DM2- monitor BG.
[2019-11-26] MEDS ORDERED: Carvedilol 25 MG TAB PO SCH (08:00)
[2019-11-26] MEDS ORDERED: Amlodipine 10 MG TAB PO SCH (09:00)
[2019-11-26] MEDS ORDERED: Apixaban 5 MG TAB PO SCH (09:00)
[2019-11-26] MEDS ORDERED: Tamsulosin HCl 0.4 MG CAP PO SCH (09:00)
[2019-11-26] MEDS ORDERED: Ketoconazole 2% Cream 15 gm Tube TOP SCH (09:00)
[2019-11-26] MEDS: Apixaban 5 MG TAB PO SCH ×2 (09:55→20:43)
[2019-11-26] MEDS: Carvedilol 25 MG TAB PO SCH ×2 (11:01→17:15)
[2019-11-26] MEDS: Tamsulosin HCl 0.4 MG CAP PO SCH (11:01)
[2019-11-26] MEDS: Amlodipine 10 MG TAB PO SCH (11:02)
[2019-11-26] MEDS: Ketoconazole 2% Cream 15 gm Tube TOP SCH (11:02)
--- NOTE | 2019-11-26 16:25 | ULT ---
Bilateral renal ultrasound CLINICAL INDICATION: Acute renal insufficiency. Possible obstruction COMPARISON: None FINDINGS: Kidneys are not well evaluated due to depth of the kidneys related to the skin surface. Right kidney: There is no evidence of a renal mass, renal calculus, or hydronephrosis seen. The right kidney measures 11.5 cm x 5.2 cm. Left kidney: There is no evidence of a renal mass, renal calculus, or hydronephrosis. The left kidney measures 10.8 cm x 5.4 cm. Urinary bladder: Incompletely distended but otherwise normal in appearance. Urinary bladder volume is 103.7 mL. Ureteral jets are visualized bilaterally on color flow evaluation. IMPRESSION: Grossly normal appearance of the bilateral kidneys without evidence of hydronephrosis
[2019-11-26] MEDS ORDERED: Sodium Bicarbonate 150 MEQ in Dextrose 5% w/ 20 mEq KCl 1,000 ML IV SCH (18:45)
--- NOTE | 2019-11-26 20:32 | CON ---
DATE OF CONSULTATION: CONSULTING PHYSICIAN: Keith Roman MD REQUESTING PHYSICIAN: [facility]. REASON FOR CONSULTATION: Kejjj-hh-mzidfnk kidney disease. IMPRESSION: 1. Fyclc-zq-ddhqllm kidney disease, query cause. This is possibly prerenal in the context of poor p.o. intake in the presence of lisinopril and diuretic usage. 2. Cannot completely rule out obstructive component, which can easily be ruled out with imaging. 3. Other potential nephritic problems are completely ruled out, but unlikely at this point. 4. Digoxin toxicity in the context of decreased GFR. 5. Metabolic acidosis in the context of reduced GFR. PLAN: 1. Rehydrate this patient. Follow up the labs. 2. Renally dose all medications and avoid potentially nephrotoxic agents. 3. There is no emergent indication for renal replacement therapy (hemodialysis). Hopefully, renal function will improve with rehydration. 4. Renal ultrasound to rule out any potential obstructive uropathy. 5. Discontinue metformin. Hold digoxin and adjust the dose down as well as discontinue lisinopril. 6. Further management will be dependent on the clinical course. HISTORY OF PRESENT ILLNESS: History is that of 79-year-old gentleman who was brought to the emergency room at the recommendation of his primary care physician having been noted with abnormal labs with elevated creatinine of above 6 when the patient's baseline creatinine of 1.6. In conjunction with these, noted elevated digoxin level. The patient denies any ingestion of any potentially nephrotoxic agents. However, the patient has not been feeling well with associated poor p.o. intake and one episode of vomiting over the past 24 hours. In 24 hours, the patient seems to have noticed a decrease in urinary output. No history of hematuria nor diarrhea. As a result of the significant increase in the creatinine level, decision has been taken to involve Renal in the management of this case. PAST MEDICAL HISTORY: Significant for diabetes mellitus, hypertension, gout, atrial fibrillation, BPH, and COPD. MEDICATIONS: Reviewed as documented on [facility]. ALLERGIES: NO KNOWN DRUG ALLERGIES. SOCIAL HISTORY: Denies tobacco, alcohol, or illicit drug use. FAMILY HISTORY: No family history of kidney disease. REVIEW OF SYSTEMS: As documented in the body of history. All the other systems are reviewed and found not to be significantly related to present illness. PHYSICAL EXAMINATION: GENERAL: The patient was found not to be in any obvious distress noted with the following vital signs. VITAL SIGNS: Afebrile, temperature 97.6, pulse 60, blood pressure 160/95, O2 saturations 94%. HEENT: Reveals dry oral mucosa. No conjunctival injection or icterus. NECK: Supple. CARDIOVASCULAR SYSTEM: First and second heart sounds were heard. RESPIRATORY SYSTEM: Clear to auscultation. DIGESTIVE SYSTEM: Revealed a benign abdomen with positive bowel sounds. EXTREMITIES: No peripheral edema. SKIN: No new gross rash. LYMPHATICS: No peripheral lymphadenopathy. SUMMARY: A 79-year-old gentleman with unexplained [id number] kidney disease was digoxin toxicity in the context. Thank you for this consultation. We will follow with you. Job ID: [id number]
[2019-11-26] MEDS: Sodium Bicarbonate 150 MEQ in Dextrose 5% w/ 20 mEq KCl 1,000 ML IV SCH (20:43)
[2019-11-26] MEDS ORDERED: Atorvastatin Calcium 40 MG TAB PO SCH (21:00)
[2019-11-27 04:10] LABS: Anion Gap 19 mmol/L (10-20); BUN (Urea Nitrogen) 41 mg/dL (8.4-25.7); Calc. Creatinine Clearance 20 mL/min (70-130); Calcium 8.2 mg/dL (7.8-10.44); Carbon Dioxide 18 mmol/L (23-31); Chloride 105 mmol/L (98-107); Estimated GFR-MDRD 8; Glucose 210 mg/dL (83-110); Potassium 3.9 mmol/L (3.5-5.1); Sodium 138 mmol/L (136-145)
[2019-11-27] MEDS: HumaLOG 300 UNITS/3 ML VIAL SC PRN ×4 (06:10→20:45)
--- NOTE | 2019-11-27 06:13 | PDOC.FM ---
- Subjective Subjective: Reports SOB and wheezing. Usually on duonebs 3-4x per day, has not had them here. Also reports diarrhea yesterday, has not yet had a BM today. Urinated 400ml so far this morning. - Objective MAR Reviewed: Yes Vital Signs & Weight: Vital Signs (12 hours) Temp Pulse Ox 11/27/19 04:00 98.0 F 11/27/19 00:00 97.8 F 11/26/19 20:00 97.5 F L 96 Weight Weight 150.649 kg Most Recent Monitor Data Heart Rate from ECG 62 NIBP 143/72 NIBP BP-Mean 95 Respiration from ECG 16 SpO2 95 I&O: 11/25/19 11/26/19 11/27/19 06:59 06:59 06:59 Intake Total 713 830 Output Total 125 850 Balance 588 -20 Result Diagrams: 11/26/19 05:21 11/27/19 03:15 Phys Exam - Physical Examination Constitutional: NAD HEENT: moist MMs Neck: supple Respiratory: wheezing present rhonchi b/l Cardiovascular: RRR, no significant murmur Gastrointestinal: soft, non-tender Musculoskeletal: edema present Neurological: moves all 4 limbs Psychiatric: normal affect Dx/Plan - Plan Plan: Acute Renal Failure 2/2 Digoxin Toxicity - On Digoxin for afib. s/p digFab in the ER. Initial EKG w/ classic dig toxicity findings. - FeNa c/w Intrinsic cause - Nephrology consulted - Continuous cardiac monitoring - NaHCO3 @100 - Renal US nml HFpEF, not in exacerbation - Echo 10/11/19 EF 55-60%, Grade 1/3 diastolic dysfunction - Hold lasix Paroxysmal Afib - See Above for plan HTN - Hold Lisinopril and HCTZ - Continue Coreg & Amlodipine COPD - Continue home meds and O2 at night T2DM - Hold metformin - ACHS accuchecks, mild SSI - Last A1c 8.9 on 09/15 Gout - Hold home meloxicam, allopurinol DVT ppx: Eliquis Diet: Renal High protein Code Status: FULL PCP: ZOLTAN Katz, [facility] Addendum - Attending - Attending Attestation Date/Time: 11/27/19 1202 I personally evaluated the patient and discussed the management with Dr. Mena I agree with the History, Examination, Assessment and Plan documented above with any addition or exceptions noted below - Patient without complaints wheezing and would like breathing treatment which he usually does at home 3-4 x/ day. Afebrile VSS. A/P: 1) Digoxin toxicity- s/p digfab. If restarted plan for lower dose. 2) CRISTA with CKD- continue iVF with bicarb; renal USG normal. Appreciate nephrology assistance. 3) COPD- restart nebs. 4) DM2- will start low dose of basal insulin. Monitor accuchecks.
[2019-11-27] MEDS: Sodium Bicarbonate 150 MEQ in Dextrose 5% w/ 20 mEq KCl 1,000 ML IV SCH ×2 (07:13→17:55)
[2019-11-27] MEDS: Apixaban 5 MG TAB PO SCH ×2 (09:21→20:28)
[2019-11-27] MEDS: Amlodipine 10 MG TAB PO SCH (09:22)
[2019-11-27] MEDS: Tamsulosin HCl 0.4 MG CAP PO SCH (09:23)
[2019-11-27] MEDS: Ketoconazole 2% Cream 15 gm Tube TOP SCH (09:26)
[2019-11-27] MEDS ORDERED: Nystatin Powder 15 GM BOT TOP PRN (09:49)
[2019-11-27] MEDS: Carvedilol 25 MG TAB PO SCH ×2 (10:25→16:42)
[2019-11-27 12:01] LABS: Digoxin 2.63 ng/mL (0.8-2.0)
[2019-11-27] MEDS ORDERED: Insulin Glargine 5 UNITS in Pre-Filled Syringe 1 EACH SC SCH (12:15)
[2019-11-27] MEDS: Atorvastatin Calcium 40 MG TAB PO SCH (20:43)
[2019-11-28 04:22] LABS: Hemoglobin A1c 9.2 % (4.0-6.0)
[2019-11-28 04:43] LABS: Albumin 3.4 g/dL (3.4-4.8); Anion Gap 19 mmol/L (10-20); BUN (Urea Nitrogen) 32 mg/dL (8.4-25.7); BUN/Creatinine Ratio 8.16; Calc. Creatinine Clearance 33 mL/min (70-130); Calcium 8.5 mg/dL (7.8-10.44); Carbon Dioxide 28 mmol/L (23-31); Chloride 100 mmol/L (98-107); Estimated GFR-MDRD 15; Glucose 256 mg/dL (83-110); Phosphorus 2.6 mg/dL (2.3-4.7); Potassium 3.9 mmol/L (3.5-5.1); Sodium 143 mmol/L (136-145)
[2019-11-28] MEDS: Sodium Bicarbonate 150 MEQ in Dextrose 5% w/ 20 mEq KCl 1,000 ML IV SCH (05:05)
--- NOTE | 2019-11-28 06:29 | PDOC.FM ---
- Subjective Subjective: Pt getting a breathing treatment this morning. States he is urinating normally over the past day. Denies any complaints this morning including CP, palpitations , vision changes. - Objective Vital Signs & Weight: Vital Signs (12 hours) Temp Pulse Resp BP Pulse Ox 11/28/19 03:02 97.8 F 60 20 142/82 H 95 11/28/19 00:44 61 18 94 L 11/27/19 20:20 97.6 F 60 22 H 160/72 H 96 11/27/19 18:54 65 18 94 L Weight Weight 150.048 kg Most Recent Monitor Data Heart Rate from ECG 64 NIBP 146/75 NIBP BP-Mean 98 Respiration from ECG 20 SpO2 92 I&O: 11/26/19 11/27/19 11/28/19 06:59 06:59 06:59 Intake Total 713 1830 2580 Output Total 125 1050 2650 Balance 588 780 -70 Result Diagrams: 11/26/19 05:21 11/28/19 04:03 Phys Exam - Physical Examination Constitutional: NAD HEENT: moist MMs, sclera anicteric Neck: full ROM Difficult to ascultate 2/2 habitus Decent air movement, minimally audible scant wheeze Cardiovascular: RRR, no significant murmur Rate/rhythm controlled Musculoskeletal: pulses present Trace lower extremity edema Neurological: non-focal Psychiatric: normal affect, A&O x 3 Deviation from normal: Continues to voice what seems to be delusions as he has in the past Cannot guarantee these are not factual - 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, [employer] Dx/Plan (1) Acute renal failure Status: Acute (2) Morbid obesity Code(s): E66.01 - MORBID (SEVERE) OBESITY DUE TO EXCESS CALORIES Status: Chronic (3) Atrial fibrillation Code(s): I48.91 - UNSPECIFIED ATRIAL FIBRILLATION Status: Chronic Qualifiers: Atrial fibrillation type: paroxysmal Qualified Code(s): I48.0 - Paroxysmal atrial fibrillation (4) BPH (benign prostatic hyperplasia) Code(s): N40.0 - BENIGN PROSTATIC HYPERPLASIA WITHOUT LOWER URINRY TRACT SYMP Status: Chronic (5) CHF (congestive heart failure) Code(s): I50.9 - HEART FAILURE, UNSPECIFIED Status: Chronic (6) COPD (chronic obstructive pulmonary disease) Status: Chronic (7) Diabetes mellitus Code(s): E11.9 - TYPE 2 DIABETES MELLITUS WITHOUT COMPLICATIONS Status: Chronic (8) HTN (hypertension) Code(s): I10 - ESSENTIAL (PRIMARY) HYPERTENSION Status: Chronic (9) Hyperlipidemia Code(s): E78.5 - HYPERLIPIDEMIA, UNSPECIFIED Status: Chronic (10) Obstructive sleep apnea Code(s): G47.33 - OBSTRUCTIVE SLEEP APNEA (ADULT) (PEDIATRIC) Status: Chronic - Plan Plan: Acute Renal Failure 2/2 Digoxin Toxicity - On Digoxin for afib. s/p digFab in the ER. Initial EKG w/ classic dig toxicity findings. - FeNa c/w Intrinsic cause - Nephrology consulted - recommended rehydrating and renal function monitoring at this time - Continuous cardiac monitoring - NaHCO3 @100 - Renal US nml HFpEF, not in exacerbation - Echo 10/11/19 EF 55-60%, Grade 1/3 diastolic dysfunction - Hold lasix Paroxysmal Afib - adjusted Eliquis dosing - 2.5 BID HTN - Hold Lisinopril and HCTZ - Continue Coreg & Amlodipine - Borderline pressures right now, continue to monitor COPD - Continue home meds and O2 at night T2DM - Hold metformin - ACHS accuchecks, mild SSI w/ titrating basal - A1c 9.2 Gout - Hold home meloxicam, allopurinol DVT ppx: Eliquis - renal dosing Diet: Renal High protein Code Status: FULL PCP: ZOLTAN Katz, [facility] [employer] Addendum - Attending - Attending Attestation Date/Time: 11/28/19 1330 I personally evaluated the patient and discussed the management with Dr. Montemayor. I agree with the History, Examination, Assessment and Plan documented above with any addition or exceptions noted below. Patient here for ARF, second episode, and Digoxin toxicity. He is doing well on telemetry. His renal function is improving. Nephrology on board. Will need to monitor rhythm strip as he is off all rhythm control agents at this time. UOP adequate. He should consider placement after discharge as this is his third admission in the last few months that is a result of poor self care.
--- NOTE | 2019-11-28 06:58 | PRG ---
DATE OF SERVICE: 11/27/2019 SUBJECTIVE: The patient is seen and examined. He seems to be doing much better. No more oliguric, now making more urine. Noted with the following vital signs. OBJECTIVE: VITAL SIGNS: Afebrile. Temperature 97.6, pulse 85, respiratory rate of 20, O2 saturation of 96% with blood pressure 136/65. HEENT: Unremarkable. CARDIOVASCULAR: First and second heart sounds were heard. RESPIRATORY: Clear to auscultation. DIGESTIVE: Revealed a benign abdomen with positive bowel sounds. EXTREMITIES: No peripheral edema. SKIN: No new gross rash. LYMPHATICS: No peripheral lymphadenopathy. LABORATORY INVESTIGATION: Showed a bicarb of 18, BUN of 41 with a creatinine of 6.51, potassium 3.9. IMPRESSION: 1. Hbaqe-qe-mmgfted kidney disease, possibly prolonged prerenal state. 2. Digoxin toxicity in the context of reduced GFR and poor renal clearance of digoxin. 3. Morbid obesity. 4. Supratherapeutic digoxin level. PLAN: 1. The patient seems to be beginning to experience renal recovery, however, the clearance has not improved, plus the elevated level of digoxin still. The patient seems to be hemodynamically stable. 2. No emergent indication for renal replacement therapy (hemodialysis) at this point, will hopefully begin to experience improvement in the renal clearance as evidenced by drop in creatinine level without digoxin level. 3. Renally dose all medications and avoiding potentially nephrotoxic agents. 4. Further management to be dependent on the clinical course. Job ID: [id number]
[2019-11-28] MEDS ORDERED: Insulin Glargine 5 UNITS in Pre-Filled Syringe 1 EACH SC SCH (09:00)
[2019-11-28] MEDS ORDERED: Insulin Glargine 8 UNITS in Pre-Filled Syringe 1 EACH SC SCH (09:00)
[2019-11-28] MEDS: Apixaban 2.5 MG TAB PO SCH ×2 (09:19→20:29)
[2019-11-28] MEDS: Amlodipine 10 MG TAB PO SCH (09:19)
[2019-11-28] MEDS: Tamsulosin HCl 0.4 MG CAP PO SCH (09:19)
[2019-11-28] MEDS: Carvedilol 25 MG TAB PO SCH ×2 (09:19→16:45)
--- NOTE | 2019-11-28 10:12 | PDOC.PALCO ---
Palliative Care Consult - Consult Details Requesting Physician: Dr Dyer Reason for Consult: goals of care, symptom management Family Members Present: Spoke with his daughter Aranza - Pertinent HPI 79 year old who presented to the emergency room in [place] after referral from his PCP at [facility] secondary to digoxin toxicity. After presentation to the emergency room he was transferred to [facility] for higher level of care , admitted to [facility] for management of digoxin toxicity and acute renal failure. - Social History Smoking Status: Never smoker Smoking: no tobacco exposure Alcohol Use: none Drug Use History: none Living Situation: independent (Lives by his daughter) - Medications MAR Reviewed: Yes - Allergies Allergies/Adverse Reactions: Allergies Allergy/AdvReac Type Severity Reaction Status Date / Time Penicillins Allergy Verified 11/26/19 01:59 - Subjective Awake, alert and very talkative. 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 Flight of ideas. Denies any current complaints. States he lives independently , with assistance of his daughter who lives "right by him" and home health. Ambulates in the home with a walker, denies incontinence, assistance with ADL's needed. Poor historian with ROS. - ROS Non Response: due to mental status Constitutional: weakness ENT: other (denies difficulty swallowing or alteration in dentition) Respiratory: shortness of breath with extertion, other Cardiology: edema, other (negative for chest pain or palpitations) Gastrointestinal: constipation, other Genitourinary: other (negative for dysuria or hematuria) Musculoskeletal: arthritis/arthralgias - Objective Vital Signs: Vital Signs - Most Recent Temp Pulse Resp BP Pulse Ox 98.3 F 71 20 143/85 H 95 11/28/19 09:07 11/28/19 09:19 11/28/19 09:07 11/28/19 09:19 11/28/19 09:07 Palliative Performance Scale: 50 - Advance Directives Medical Power of Mold Parter: Daughter Aranza states the three children make joint decisions. - Physical Exam Constitutional: confusion HEENT: EOMI, moist MMs, sclera anicteric Respiratory: diminished lung sound, labored respirations, wheezing present Deviation from normal: very scant upper lobe expiratory wheezing Cardiovascular: irregular Gastrointestinal: continent Genitourinary: continent Musculoskeletal: no cyanosis, no clubbing Neurology: moves all 4 limbs Skin: cap refill <2 seconds Deviation from normal: Oriented to self, place, time...but confusion in relation to history - Problem List (1) Digoxin toxicity Code(s): T46.0X1A - POISONING BY CARDI-STIM GLYCOS/DRUG SIMLAR ACT, ACC, INIT Current Visit: Yes Status: Acute (2) Palliative care encounter Code(s): Z51.5 - ENCOUNTER FOR PALLIATIVE CARE Current Visit: Yes Status: Acute (3) CRISTA (acute kidney injury) Code(s): N17.9 - ACUTE KIDNEY FAILURE, UNSPECIFIED Current Visit: No Status : Acute (4) Physical deconditioning Code(s): R53.81 - OTHER MALAISE Current Visit: No Status: Acute (5) CHF (congestive heart failure) Code(s): I50.9 - HEART FAILURE, UNSPECIFIED Current Visit: No Status: Chronic (6) Morbid obesity Code(s): E66.01 - MORBID (SEVERE) OBESITY DUE TO EXCESS CALORIES Current Visit : No Status: Chronic - Plan/Recommendations Plan: Visited with patient at length, confused. Daughter states he is aware of time, place, but poor historian. He communicated to me as well as his daughter that if needed he would not want to pursue dialysis. Discussed that if that decision needs to be make hospice may be an appropriate consideration to manage symptoms related to terminal condition of renal failure without dialysis. Discussed also reconsidering resuscitation status. Patient hopeful to return to the home setting with home health and live independently as long as possible. Discussed with daughter Aranza that she should visit with her father and siblings to discuss Goal of care and if her would not peruse dialysis how they would readjust care and transition to alternative living situation. Transition to alternative living situation may need to be addressed sooner rather than later related to decline and increase in need of assistance for ADL by Mr Hogan. [60] minutes spent on this encounter with >50% of the time in counseling and coordination of care. Thank you for this very appropriate consult.
[2019-11-28] MEDS: HumaLOG 300 UNITS/3 ML VIAL SC PRN ×2 (12:39→16:45)
[2019-11-28 14:47] LABS: Hemoglobin 12.2 g/dL (14.0-18.0); Platelet Count 179 thou/uL (130-400)
[2019-11-28] MEDS: Diabetic Tussin 200 MG/10 ML UDCUP PO PRN (17:35)
[2019-11-28] MEDS: Atorvastatin Calcium 40 MG TAB PO SCH (20:29)
--- NOTE | 2019-11-28 20:30 | PRG ---
DATE OF SERVICE: 11/28/2019 SUBJECTIVE: The patient is seen and examined, seems to be doing much better, noted with the following vital signs. OBJECTIVE: VITAL SIGNS: Afebrile, temperature 98, pulse 62, respiratory rate of 16, O2 saturation of 97%, and blood pressure 150/71. HEENT: Unremarkable. CARDIOVASCULAR SYSTEM: First and second heart sounds were heard. RESPIRATORY SYSTEM: Shows some rales. DIGESTIVE: Revealed a benign abdomen. EXTREMITIES: No peripheral edema. SKIN: No new gross rash. LYMPHATICS: No peripheral lymphadenopathy. LABORATORY INVESTIGATION: Showed a creatinine down to 3.1. IMPRESSION: 1. Acute on chronic kidney disease, which seems to be improving. 2. Morbid obesity. PLAN: 1. Discontinue IV fluids. 2. Continue renal supportive measures. 3. Further management to be dependent on the clinical course. Job ID: [id number]
[2019-11-29] MEDS: Diabetic Tussin 200 MG/10 ML UDCUP PO PRN (03:32)
[2019-11-29 04:49] LABS: Albumin 3.5 g/dL (3.4-4.8); Anion Gap 15 mmol/L (10-20); BUN (Urea Nitrogen) 22 mg/dL (8.4-25.7); BUN/Creatinine Ratio 8.91; Calc. Creatinine Clearance 51 mL/min (70-130); Calcium 8.3 mg/dL (7.8-10.44); Carbon Dioxide 31 mmol/L (23-31); Chloride 100 mmol/L (98-107); Estimated GFR-MDRD 25; Glucose 267 mg/dL (83-110); Phosphorus 3.1 mg/dL (2.3-4.7); Sodium 142 mmol/L (136-145)
--- NOTE | 2019-11-29 06:26 | PDOC.FM ---
- Subjective Subjective: Pt was quite sleepy this morning. Denies any complaints or events overnight. Did have bradycardia intermittently into the low 50s but per nursing staff and pt was not sx with this. Continues to urinate well. - Objective Vital Signs & Weight: Vital Signs (12 hours) Temp Pulse Resp BP Pulse Ox 11/29/19 03:07 98.0 F 65 17 138/63 94 L 11/28/19 23:25 65 16 95 11/28/19 19:55 97.5 F L 59 L 20 113/75 94 L 11/28/19 19:09 62 16 97 Weight Weight 149.685 kg Most Recent Monitor Data Heart Rate from ECG 64 NIBP 146/75 NIBP BP-Mean 98 Respiration from ECG 20 SpO2 92 I&O: 11/27/19 11/28/19 11/29/19 06:59 06:59 06:59 Intake Total 1830 2580 1850 Output Total 1050 2650 1900 Balance 780 -70 -50 Result Diagrams: 11/28/19 14:38 11/29/19 03:51 Phys Exam - Physical Examination Constitutional: NAD HEENT: sclera anicteric Neck: full ROM Respiratory: clear to auscultation bilateral Cardiovascular: RRR Gastrointestinal: soft, non-tender Trace edema Neurological: moves all 4 limbs Psychiatric: normal affect Skin: no rash, cap refill <2 seconds Dx/Plan (1) Acute renal failure Status: Acute (2) Morbid obesity Code(s): E66.01 - MORBID (SEVERE) OBESITY DUE TO EXCESS CALORIES Status: Chronic (3) Atrial fibrillation Code(s): I48.91 - UNSPECIFIED ATRIAL FIBRILLATION Status: Chronic Qualifiers: Atrial fibrillation type: paroxysmal Qualified Code(s): I48.0 - Paroxysmal atrial fibrillation (4) BPH (benign prostatic hyperplasia) Code(s): N40.0 - BENIGN PROSTATIC HYPERPLASIA WITHOUT LOWER URINRY TRACT SYMP Status: Chronic (5) CHF (congestive heart failure) Code(s): I50.9 - HEART FAILURE, UNSPECIFIED Status: Chronic (6) COPD (chronic obstructive pulmonary disease) Status: Chronic (7) Diabetes mellitus Code(s): E11.9 - TYPE 2 DIABETES MELLITUS WITHOUT COMPLICATIONS Status: Chronic (8) HTN (hypertension) Code(s): I10 - ESSENTIAL (PRIMARY) HYPERTENSION Status: Chronic (9) Hyperlipidemia Code(s): E78.5 - HYPERLIPIDEMIA, UNSPECIFIED Status: Chronic (10) Obstructive sleep apnea Code(s): G47.33 - OBSTRUCTIVE SLEEP APNEA (ADULT) (PEDIATRIC) Status: Chronic - Plan Plan: Acute Renal Failure 2/2 Digoxin Toxicity - On Digoxin for afib. s/p digFab in the ER. Initial EKG w/ classic dig toxicity findings. - FeNa c/w Intrinsic cause - Nephrology consulted - continue hydration - Continuous cardiac monitoring - NaHCO3 @100 - Renal US nml - Renal function continually improving. Cr: 2.47 HFpEF, not in exacerbation - Echo 10/11/19 EF 55-60%, Grade 1/3 diastolic dysfunction - Hold lasix Paroxysmal Afib - adjusted Eliquis for renal dosing - 2.5 BID HTN - Hold Lisinopril and HCTZ - Continue Coreg & Amlodipine - Borderline pressures right now, continue to monitor COPD - Continue home meds and O2 at night T2DM - Hold metformin - ACHS accuchecks, mild SSI, basal titrated to 12u - A1c 9.2 Gout - Hold home meloxicam, allopurinol DVT ppx: Eliquis - renal dosing Diet: Renal High protein Code Status: FULL PCP: ZOLTAN Katz, [facility] Addendum - Attending - Attending Attestation Date/Time: 11/29/19 1320 I personally evaluated the patient and discussed the management with Dr. Montemayor. I agree with the History, Examination, Assessment and Plan documented above with any addition or exceptions noted below.
[2019-11-29] MEDS: Apixaban 2.5 MG TAB PO SCH ×2 (08:27→20:06)
[2019-11-29] MEDS: Amlodipine 10 MG TAB PO SCH (08:27)
[2019-11-29] MEDS: Tamsulosin HCl 0.4 MG CAP PO SCH (08:27)
[2019-11-29] MEDS: HumaLOG 300 UNITS/3 ML VIAL SC PRN ×3 (08:28→17:40)
[2019-11-29] MEDS: Insulin Glargine 12 UNITS in Pre-Filled Syringe 1 EACH SC SCH (08:28)
[2019-11-29] MEDS: Carvedilol 25 MG TAB PO SCH ×2 (08:28→17:40)
--- NOTE | 2019-11-29 16:47 | PDOC.PALPN ---
Palliative Progress Note - Subjective Sleepy, arousable. Continues to share a colorful life history, in conversations most are fictional as per his daughters. - Objective Vital Signs: Vital Signs - Most Recent Temp Pulse Resp BP Pulse Ox 97.5 F L 60 15 132/61 90 L 11/29/19 15:28 11/29/19 15:28 11/29/19 15:28 11/29/19 15:28 11/29/19 12:37 - Physical Exam Constitutional: confusion, ill appearing HEENT: moist MMs, sclera anicteric Respiratory: diminished lung sound Cardiovascular: RRR Gastrointestinal: soft, non-tender Genitourinary: continent Musculoskeletal: no cyanosis, edema present Neurology: moves all 4 limbs, no focal deficits Skin: cap refill <2 seconds, no lesions, no rash Psychiatric: A&O x 3 Deviation from normal: poor historian, flight of ideas - Assessment (1) Digoxin toxicity Code(s): T46.0X1A - POISONING BY CARDI-STIM GLYCOS/DRUG SIMLAR ACT, ACC, INIT Current Visit: Yes Status: Acute (2) Palliative care encounter Code(s): Z51.5 - ENCOUNTER FOR PALLIATIVE CARE Current Visit: Yes Status: Acute (3) CRISTA (acute kidney injury) Code(s): N17.9 - ACUTE KIDNEY FAILURE, UNSPECIFIED Current Visit: No Status : Acute (4) Physical deconditioning Code(s): R53.81 - OTHER MALAISE Current Visit: No Status: Acute (5) CHF (congestive heart failure) Code(s): I50.9 - HEART FAILURE, UNSPECIFIED Current Visit: No Status: Chronic (6) Morbid obesity Code(s): E66.01 - MORBID (SEVERE) OBESITY DUE TO EXCESS CALORIES Current Visit : No Status: Chronic - Plan Plan: Phone conversation with patient daughters Aranza and Mimi. Both claim to be "decision makers". Mimi states she has MPOA, requested she bring to the hospital. Discussed disease trajectory. Both Aranza and Mimi are in agreement in full resuscitation status. Patient states he would not desire dialysis, Mimi states she would advocate for her father to have dialysis. Encouraged family to visit with their father, and remember all decisions are what "his goal of care is" and not their wishes. [40] minutes spent on this encounter with >50% of the time in counseling and coordination of care. - ROS Constitutional: alert, weakness ENT: other (negative for throat irritation, congestion) Respiratory: shortness of breath with extertion Cardiology: other (negtive for chest pain, palpitations) Genitourinary: other (negatvie for dysuria, hematuria)
--- NOTE | 2019-11-29 19:21 | PRG ---
DATE OF SERVICE: 11/29/2019 SUBJECTIVE: The patient was seen and examined, somewhat sleepy but noted with the following vital signs. OBJECTIVE: VITAL SIGNS: Afebrile, temperature 98, pulse 65, respiratory rate of 17, blood pressure 138/63 with O2 saturation of 94%. HEENT EXAMINATION: Unremarkable. CARDIOVASCULAR SYSTEM: First and second heart sounds were heard. RESPIRATORY SYSTEM: Clear to auscultation. DIGESTIVE SYSTEM: Revealed a benign abdomen with positive bowel sounds. EXTREMITIES: No peripheral edema. SKIN EXAMINATION: No new gross rash. LYMPHATICS: No peripheral lymphadenopathy. IMPRESSION: 1. Acute on chronic kidney disease which has improved. 2. Digoxin toxicity in the context of reduced GFR. 3. Paroxysmal atrial fibrillation. 4. History of chronic obstructive pulmonary disease. PLAN: 1. Continue current renal supportive measures. 2. If the patient continues to become very sleepy, we will recommend checking the blood gas of this patient to rule out carbon dioxide narcosis. 3. Further management to be dependent on the clinical course. Job ID: [id number]
[2019-11-29] MEDS: Atorvastatin Calcium 40 MG TAB PO SCH (20:06)
[2019-11-30 05:32] LABS: Albumin 3.5 g/dL (3.4-4.8); Anion Gap 11 mmol/L (10-20); BUN (Urea Nitrogen) 19 mg/dL (8.4-25.7); BUN/Creatinine Ratio 10.92; Calc. Creatinine Clearance 73 mL/min (70-130); Calcium 8.5 mg/dL (7.8-10.44); Carbon Dioxide 34 mmol/L (23-31); Chloride 102 mmol/L (98-107); Estimated GFR-MDRD 38; Glucose 265 mg/dL (83-110); Phosphorus 2.9 mg/dL (2.3-4.7); Potassium 4.4 mmol/L (3.5-5.1); Sodium 143 mmol/L (136-145)
--- NOTE | 2019-11-30 06:55 | PDOC.FM ---
- Subjective Subjective: Denies any complaints this morning. Continuing to do well. States that he will not use CPAP and if he gets to the point of dialysis he will refuse and understands he will likely without it if it gets to that point - pt is okay with this and understands. Discussed plan going forward and need for outpatient follow up. Pt states he already has a f/u appt with his PCP and states there is a technical designer in the same office that he sees as well. No SOB, CP, or urinary changes. - Objective Vital Signs & Weight: Vital Signs (12 hours) Temp Pulse Resp BP Pulse Ox 11/30/19 03:14 98.2 F 65 20 129/93 H 98 11/30/19 00:46 59 L 24 H 94 L 11/29/19 19:59 97.6 F 61 20 129/61 98 11/29/19 19:01 58 L 20 96 Weight Weight 149.096 kg Most Recent Monitor Data Heart Rate from ECG 64 NIBP 146/75 NIBP BP-Mean 98 Respiration from ECG 20 SpO2 92 I&O: 11/28/19 11/29/19 11/30/19 06:59 06:59 06:59 Intake Total 2580 1850 1700 Output Total 2650 1900 800 Balance -70 -50 900 Result Diagrams: 11/28/19 14:38 11/30/19 04:10 Phys Exam - Physical Examination Constitutional: NAD HEENT: TM's clear Neck: full ROM Respiratory: clear to auscultation bilateral Cardiovascular: RRR, no significant murmur Gastrointestinal: positive bowel sounds Musculoskeletal: no edema Neurological: non-focal, moves all 4 limbs Psychiatric: normal affect Deviation from normal: A&O to self and place, mildly time Skin: no rash Dx/Plan (1) Acute renal failure Status: Acute (2) Morbid obesity Code(s): E66.01 - MORBID (SEVERE) OBESITY DUE TO EXCESS CALORIES Status: Chronic (3) Atrial fibrillation Code(s): I48.91 - UNSPECIFIED ATRIAL FIBRILLATION Status: Chronic Qualifiers: Atrial fibrillation type: paroxysmal Qualified Code(s): I48.0 - Paroxysmal atrial fibrillation (4) BPH (benign prostatic hyperplasia) Code(s): N40.0 - BENIGN PROSTATIC HYPERPLASIA WITHOUT LOWER URINRY TRACT SYMP Status: Chronic (5) CHF (congestive heart failure) Code(s): I50.9 - HEART FAILURE, UNSPECIFIED Status: Chronic (6) COPD (chronic obstructive pulmonary disease) Status: Chronic (7) Diabetes mellitus Code(s): E11.9 - TYPE 2 DIABETES MELLITUS WITHOUT COMPLICATIONS Status: Chronic (8) HTN (hypertension) Code(s): I10 - ESSENTIAL (PRIMARY) HYPERTENSION Status: Chronic (9) Hyperlipidemia Code(s): E78.5 - HYPERLIPIDEMIA, UNSPECIFIED Status: Chronic (10) Obstructive sleep apnea Code(s): G47.33 - OBSTRUCTIVE SLEEP APNEA (ADULT) (PEDIATRIC) Status: Chronic - Plan Plan: Acute Renal Failure 2/2 Digoxin Toxicity - Nephrology, [facility] - DC'd bicarb - Continuous cardiac monitoring - Renal US nml - Renal function continually improving. Cr: 1.74 HFpEF, not in exacerbation - Echo 10/11/19 EF 55-60%, Grade 1/3 diastolic dysfunction - Hold lasix Paroxysmal Afib - Resume full dose Eliquis - Continues to be sinus rhythm, HR in the 60's HTN - Hold Lisinopril and HCTZ - Continue Coreg & Amlodipine - Borderline pressures right now, continue to monitor COPD - Continue home meds and O2 at night T2DM - Hold metformin - ACHS accuchecks, mild SSI, basal titrated to 12u - A1c 9.2 Gout - Hold home meloxicam, allopurinol DVT ppx: Eliquis - renal dosing Diet: Renal High protein Code Status: FULL PCP: ZOLTAN Katz, [employer] Dispo: Patient's renal function is approaching baseline. Bicarb DC'd, BMP bicarb 34 this morning. Patient continues to refuse any placement recommendations and assures that he has enough support at home between family and home health. Expect that patient will be ready for DC within the next couple days. Regarding his Digoxin, he will still have DigFab in his system for another week. Best option may be outpatient follow up to confirm stable renal function before restarting his digoxin. Addendum - Attending - Attending Attestation Date/Time: 11/30/19 9675 I personally evaluated the patient and discussed the management with Dr. Montemayor. I agree with the History, Examination, Assessment and Plan documented above with any addition or exceptions noted below. Patient overall stable. Continue to monitor renal function and discuss his outpatient care. Nephro on board.
[2019-11-30] MEDS: Tamsulosin HCl 0.4 MG CAP PO SCH (07:41)
[2019-11-30] MEDS: Amlodipine 10 MG TAB PO SCH (07:42)
[2019-11-30] MEDS: Apixaban 2.5 MG TAB PO SCH ×2 (07:42→20:13)
[2019-11-30] MEDS: Carvedilol 25 MG TAB PO SCH ×2 (07:42→17:52)
[2019-11-30] MEDS: HumaLOG 300 UNITS/3 ML VIAL SC PRN ×3 (07:43→17:52)
[2019-11-30] MEDS: Diabetic Tussin 200 MG/10 ML UDCUP PO PRN ×2 (07:43→20:13)
[2019-11-30] MEDS: Insulin Glargine 12 UNITS in Pre-Filled Syringe 1 EACH SC SCH (07:43)
--- NOTE | 2019-11-30 10:37 | PDOC.PALPN ---
Palliative Progress Note - Subjective Awake alert, talkative - Objective Vital Signs: Vital Signs - Most Recent Temp Pulse Resp BP Pulse Ox 97.6 F 61 20 133/73 20 L 11/30/19 07:37 11/30/19 07:37 11/30/19 07:37 11/30/19 07:37 11/30/19 07:37 - Physical Exam Constitutional: NAD HEENT: EOMI, moist MMs Respiratory: diminished lung sound Cardiovascular: RRR Gastrointestinal: continent Genitourinary: continent Musculoskeletal: no cyanosis, no clubbing Neurology: moves all 4 limbs Skin: cap refill <2 seconds, no rash Psychiatric: A&O x 3, normal mood Deviation from normal: Oriented to self, place, general time. Grandiose thought patter r/t history - Assessment (1) Digoxin toxicity Code(s): T46.0X1A - POISONING BY CARDI-STIM GLYCOS/DRUG SIMLAR ACT, ACC, INIT Current Visit: Yes Status: Acute (2) Palliative care encounter Code(s): Z51.5 - ENCOUNTER FOR PALLIATIVE CARE Current Visit: Yes Status: Acute (3) CRISTA (acute kidney injury) Code(s): N17.9 - ACUTE KIDNEY FAILURE, UNSPECIFIED Current Visit: No Status : Acute (4) Physical deconditioning Code(s): R53.81 - OTHER MALAISE Current Visit: No Status: Acute (5) CHF (congestive heart failure) Code(s): I50.9 - HEART FAILURE, UNSPECIFIED Current Visit: No Status: Chronic (6) Morbid obesity Code(s): E66.01 - MORBID (SEVERE) OBESITY DUE TO EXCESS CALORIES Current Visit : No Status: Chronic - Plan Plan: Patient continues to be adamant that if needed he would not pursue dialysis, wishes to remain with full resuscitative measures. Hopeful to return home with increase in assistance for ADL, aside from home health. Discussed utilization of walker at home, transitioning position slowly. [30] minutes spent on this encounter with >50% of the time in counseling and coordination of care. - ROS Constitutional: alert, weakness ENT: other (denies throat irritation, congetsion) Respiratory: shortness of breath with extertion Cardiology: other (denies palpitations, chest discomfort) Gastrointestinal: other (negative for constipation, diarrhea, nausea) Genitourinary: other (negative for frequency) Musculoskeletal: arthritis/arthralgias Skin: other (denies rash, puritis)
--- NOTE | 2019-11-30 18:47 | PRG ---
DATE OF SERVICE: 11/30/2019 SUBJECTIVE: The patient is seen and examined. Noted with the following vital signs. OBJECTIVE: VITAL SIGNS: Afebrile. Temperature 97.6, pulse 63, respiratory rate of 18, O2 saturation of 95% with blood pressure of 139/82. HEENT: Unremarkable. CARDIOVASCULAR: First and second heart sounds were heard. RESPIRATORY: Clear to auscultation. DIGESTIVE: Revealed a benign abdomen. EXTREMITIES: No peripheral edema. SKIN: No new gross rash. LYMPHATICS: No peripheral lymphadenopathy. LABORATORY INVESTIGATION: Significant for creatinine down to 1.74. IMPRESSION: 1. Acute on chronic kidney disease, which is improved. 2. Morbid obesity. 3. History of chronic obstructive pulmonary disease. PLAN: 1. Continue current renal supportive measures. 2. Outpatient Nephrology followup, status post discharge recommended. Job ID: [id number]
[2019-11-30] MEDS: Atorvastatin Calcium 40 MG TAB PO SCH (20:13)
--- NOTE | 2019-12-01 06:24 | PDOC.FM ---
- Subjective Subjective: Pt states he is feeling well this morning, denies any events overnight. No complaints currently. States he is continuing to urinate normally. Instructed him that when he goes home he needs to take his medications as prescribed. States he has an appointment next week with his PCP already set up and he will be getting additional home health. Denies any CP, dizziness, palpitations. - Objective Vital Signs & Weight: Vital Signs (12 hours) Temp Pulse Resp BP Pulse Ox 12/01/19 03:09 97.7 F 56 L 20 143/67 H 93 L 12/01/19 01:30 51 L 16 98 11/30/19 20:05 97.7 F 58 L 20 170/83 H 96 11/30/19 18:36 74 18 96 Weight Weight 148.098 kg Most Recent Monitor Data Heart Rate from ECG 64 NIBP 146/75 NIBP BP-Mean 98 Respiration from ECG 20 SpO2 92 I&O: 11/29/19 11/30/19 12/01/19 06:59 06:59 06:59 Intake Total 1850 1700 1450 Output Total 1900 800 600 Balance -50 900 850 Result Diagrams: 11/28/19 14:38 12/01/19 07:49 Phys Exam - Physical Examination Constitutional: NAD HEENT: moist MMs Neck: full ROM Respiratory: clear to auscultation bilateral Slightly bradycardic Gastrointestinal: soft, non-tender Musculoskeletal: no edema Neurological: non-focal, moves all 4 limbs Psychiatric: normal affect, A&O x 3 Skin: no rash, cap refill <2 seconds Dx/Plan (1) Acute renal failure Status: Acute (2) Morbid obesity Code(s): E66.01 - MORBID (SEVERE) OBESITY DUE TO EXCESS CALORIES Status: Chronic (3) Atrial fibrillation Code(s): I48.91 - UNSPECIFIED ATRIAL FIBRILLATION Status: Chronic Qualifiers: Atrial fibrillation type: paroxysmal Qualified Code(s): I48.0 - Paroxysmal atrial fibrillation (4) BPH (benign prostatic hyperplasia) Code(s): N40.0 - BENIGN PROSTATIC HYPERPLASIA WITHOUT LOWER URINRY TRACT SYMP Status: Chronic (5) CHF (congestive heart failure) Code(s): I50.9 - HEART FAILURE, UNSPECIFIED Status: Chronic (6) COPD (chronic obstructive pulmonary disease) Status: Chronic (7) Diabetes mellitus Code(s): E11.9 - TYPE 2 DIABETES MELLITUS WITHOUT COMPLICATIONS Status: Chronic (8) HTN (hypertension) Code(s): I10 - ESSENTIAL (PRIMARY) HYPERTENSION Status: Chronic (9) Hyperlipidemia Code(s): E78.5 - HYPERLIPIDEMIA, UNSPECIFIED Status: Chronic (10) Obstructive sleep apnea Code(s): G47.33 - OBSTRUCTIVE SLEEP APNEA (ADULT) (PEDIATRIC) Status: Chronic - Plan Plan: Acute Renal Failure 2/2 Digoxin Toxicity - Nephrology, [place] - DC'd bicarb - Continuous cardiac monitoring - Renal US nml - Renal function continually improving. Cr: 1.74 HFpEF, not in exacerbation - Echo 10/11/19 EF 55-60%, Grade 1/3 diastolic dysfunction - Hold lasix Paroxysmal Afib - Resume full dose Eliquis - Continues to be sinus rhythm, HR in the 60's HTN - Hold Lisinopril and HCTZ - Continue Coreg & Amlodipine COPD - Continue home meds and O2 at night T2DM - Hold metformin - ACHS accuchecks, mild SSI, basal titrated to 12u - A1c 9.2 Gout - Hold home meloxicam, allopurinol DVT ppx: Eliquis Diet: Renal High protein Code Status: FULL PCP: ZOLTAN Katz, [facility] Dispo: Patient's renal function approaching baseline. Doing well overall. Likely will be able to discharge later today. Addendum - Attending - Attending Attestation Date/Time: 12/01/19 [id number] I personally evaluated the patient and discussed the management with Dr. Montemayor. I agree with the History, Examination, Assessment and Plan documented above with any addition or exceptions noted below.
[2019-12-01 08:31] LABS: Anion Gap 14 mmol/L (10-20); BUN (Urea Nitrogen) 17 mg/dL (8.4-25.7); Calc. Creatinine Clearance 88 mL/min (70-130); Carbon Dioxide 27 mmol/L (23-31); Chloride 104 mmol/L (98-107); Estimated GFR-MDRD 48; Potassium 3.8 mmol/L (3.5-5.1); Sodium 141 mmol/L (136-145)
[2019-12-01 08:32] LABS: Calcium 8.3 mg/dL (7.8-10.44); Glucose 162 mg/dL (83-110)
[2019-12-01] MEDS: Apixaban 2.5 MG TAB PO SCH (09:37)
[2019-12-01] MEDS: Carvedilol 25 MG TAB PO SCH (09:37)
[2019-12-01] MEDS: Amlodipine 10 MG TAB PO SCH (09:37)
[2019-12-01] MEDS: Diabetic Tussin 200 MG/10 ML UDCUP PO PRN (09:38)
[2019-12-01] MEDS: Tamsulosin HCl 0.4 MG CAP PO SCH (09:38)
[2019-12-01] MEDS: Insulin Glargine 12 UNITS in Pre-Filled Syringe 1 EACH SC SCH (09:41)
[2019-12-01 11:55] VITALS: BP 139/68; TEMP 97.4
[2019-12-01] MEDS: HumaLOG 300 UNITS/3 ML VIAL SC PRN (12:08)
--- NOTE | 2019-12-01 17:31 | DIS ---
DATE OF ADMISSION: 11/25/2019 DATE OF DISCHARGE: 12/01/2019 ADMITTING ATTENDING: Jinny Morgan MD DISCHARGE ATTENDING: Tank Johnson MD RESIDENT: Dada Montemayor DO CONSULTS: Nephrology, Dr. Parker. PROCEDURES AND IMAGING: Renal ultrasound, impression: Grossly normal appearance of bilateral kidneys without apparent evidence of hydronephrosis. PRIMARY DIAGNOSES: Acute renal failure, digoxin toxicity. SECONDARY DIAGNOSES: Heart failure with preserved ejection fracture, paroxysmal atrial fibrillation, normocytic anemia, type 2 diabetes. DISCHARGE MEDICATIONS: 1. Omeprazole 20 mg daily. 2. Allopurinol 100 mg daily. 3. Tamsulosin 0.4 mg daily. 4. Potassium chloride 20 mEq daily. 5. Eliquis 5 mg b.i.d. 6. Lipitor 40 mg at bedtime. 7. Carvedilol 25 mg b.i.d. 8. Amlodipine 10 mg daily. 9. Lantus 12 units subcutaneously daily. DISCONTINUED MEDICATIONS: 1. Metformin 1000 mg b.i.d. 2. Furosemide 20 mg b.i.d. 3. Digoxin 0.25 mg daily. 4. Lisinopril 10 mg daily. HISTORY OF PRESENT ILLNESS AND HOSPITAL COURSE: A 79-year-old male, presented to the emergency department upon recommendation of his PCP for acute renal failure and digoxin toxicity. The patient presented to his PCP feeling overall weak and unwell with some episodes of vomiting. The patient was found to have a digoxin level of 2.63. He received 160 mg of DigiFab in the ER along with 125 mg of methylprednisolone and 50 mg of Benadryl before being admitted to the hospital. Initial workup in the ED also showed that the patient was in acute renal failure with a creatinine level of 6.73 when his baseline creatinine is around 1.4. The patient was started on fluid resuscitation, and Nephrology, Dr. Parker was consulted. Over the next several days, the patient's digoxin was held, and nephrotoxic drugs were removed including his RAJ inhibitor and metformin. The patient was instead started on basal insulin, which was titrated throughout his stay. The patient received IV fluids over the next several days with continual improvement in his renal function to the point that neared his baseline with a discharge creatinine of 1.43. The patient was instructed to closely follow up with his PCP as an outpatient to assure appropriate medication changes and compliance. Prior to discharge, we discussed the possibility of dialysis in the future if this happens again as well as the fact that the patient would benefit from increased care, the patient adamantly refused ever going on dialysis or moving out of his home. He states that he understands the risks of both of these things and accepted the consequences. Throughout his stay, the patient stayed in mostly sinus rhythm with periods of bradycardia, although he denied any symptoms from this. Due to his rate control and optimization on beta-blockers, we elected to continue to hold his digoxin during his stay and at the time of discharge,and we left the decision to his primary care provider regarding whether or not to reinitiate that medication. DISCHARGE INSTRUCTIONS: LOCATION: Home. DIET: Diabetic and heart-healthy. ACTIVITY: As tolerated. FOLLOWUP: Follow up PCP, Abimbola Mathias within the next 7 days. Job ID: [id number]
--- NOTE | 2019-12-02 11:37 | PQF ---
JESSICA RODRIGES JASON MD *r* [id number] [facility]-296 [id number] CLINICAL DOCUMENTATION CLARIFICATION FORM: POST DISCHARGE Addendum to original discharge summary date: ____ Late entry note date: __ DATE:12/02/2019 ATTN:ASTER COLLADO MD Please exercise your independent, professional judgment in responding to the clarification form. Clinical indicators are provided on the bottom of this form for your review Please check appropriate box(s): kindly clarify the digoxin toxicity [ ] Overdose of digoxin [ ] Adverse effects of digoxin [ X ] Other diagnosis decreased clearance of digoxin due to renal insufficiency [ ] Unable to determine For continuity of documentation, please document condition throughout progress notes and discharge summary. Thank You. CLINICAL INDICATORS - SIGNS / SYMPTOMS / LABS Acute renal failure 2/2 chronic digoxin Toxicity -Documented in H&P on 11/24 by cecy Gonzalez MD Patient on digoxin due to afib, BUN/Cr:41./6.7 -Documented in H&P on 11/24 by cecy Gonzalez MD Digoxin toxicity in the context of decreased GFR-Documented in Consultation on 11/25 by Keith Sutherland MD Initial EKG w/ classic dig toxicity findings -Documented in Family medicine progress note 11/26 by Mralyn Mena MD RISKS: Acute renal failure 2/2 chronic digoxin Toxicity -Documented in H&P on 11/24 by cecy Gonzalez MD Patient on digoxin due to afib, BUN/Cr:41./6.7 -Documented in H&P on 11/24 by cecy Gonzalez MD TREATMENT: S/p digfeb in the ER-Documented in H&P on 11/24 by cecy Gonzalez MD Will need close monitoring for minimum of 72hrs since getting sera fragments- Documented in H&P on 11/24 by cecy Gonzalez MD Will renally dose medications-Documented in H&P on 11/24 by cecy Gonzalez MD Will start gentle IVF-Documented in H&P on 11/24 by cecy Gonzalez MD Discontinued medications Digoxin 0.25 mg daily-Documented in discharge summary on 11/30 by Dada Montemayor DO Nephrology consulted-Documented in Family medicine progress note 11/26 by Marlyn Mena MD Continuous cardiac monitoring-Documented in Family medicine progress note 11/26 by Marlyn Mena MD [id number]@100-Documented in Family medicine progress note 11/26 by Marlyn Mena MD SAP Painter Helper Sign [employer] Winform Viewer (This form is maintained as a part of the permanent medical record) 2014 [employer]. All Rights Reserved [email or web address]
--- NOTE | 2019-12-02 14:23 | EKG ---
Test Reason : DIG TOXICITY Blood Pressure : / mmHG Vent. Rate : 060 BPM Atrial Rate : 468 BPM P-R Int : 000 ms QRS Dur : 072 ms QT Int : 342 ms P-R-T Axes : 000 010 -52 degrees QTc Int : 342 ms Atrial fibrillation with a competing junctional pacemaker Low voltage QRS Abnormal ECG Confirmed by BECKY LARA DO ([id number]), commercial production editor JAMI CH ([id number]) on 12/02/2019 2:23:24 PM Referred By: Confirmed By:BECKY LARA DO
== END 2019-12-01 14:58 | disposition home or self-care (01) | DRG 683 ==
LOC: ERS 22:04 → IMCU/EMU 23:00 → ERS 11-26 01:23 → 2NO 11-27 15:53
PROVIDERS: ADMIT Internal Medicine; ATTEND Family Medicine
DX: N17.9 Acute kidney failure, unspecified (principal); I50.32 Chronic diastolic (congestive) heart failure; Z68.41 Body mass index [BMI] 40.0-44.9, adult; E87.2 Acidosis; I13.0 Hypertensive heart and chronic kidney disease with heart failure and stage 1 through stage 4 chronic kidney disease, or unspecified chronic kidney disease; T46.0X5A Adverse effect of cardiac-stimulant glycosides and drugs of similar action, initial encounter; I48.0 Paroxysmal atrial fibrillation; D64.9 Anemia, unspecified; E11.9 Type 2 diabetes mellitus without complications; J44.9 Chronic obstructive pulmonary disease, unspecified; N40.0 Benign prostatic hyperplasia without lower urinary tract symptoms; E66.01 Morbid (severe) obesity due to excess calories; M10.9 Gout, unspecified; E78.5 Hyperlipidemia, unspecified; N14.1 Nephropathy induced by other drugs, medicaments and biological substances; R40.2362 Coma scale, best motor response, obeys commands, at arrival to emergency department; R40.2142 Coma scale, eyes open, spontaneous, at arrival to emergency department; R40.2252 Coma scale, best verbal response, oriented, at arrival to emergency department; Z88.0 Allergy status to penicillin; N18.9 Chronic kidney disease, unspecified
CPT/HCPCS: 36415; 36416; 76770; 80048; 80069; 80162; 81003; 81015; 82570; 83036; 83735; 84100; 84300; 84484; 85014; 85018; 85025; 85049; 93005; 94640; 96365; J1162; J1200; J1815; J2930; J3475; J3480; J7620; Q0162

== ENCOUNTER 2020-05-18 20:54 | Emergency (ER) | payer MEDICARE ==
--- NOTE | 2020-05-18 22:10 | RAD ---
XR Chest 1 View Portable History: Pain Comparison: Radiograph January 2020 Findings: Patient is rotated to the right. Scarring in the lung bases. Heart size is enlarged. No pne umothorax or effusion. No acute osseous abnormality. Impression: No acute intrathoracic abnormality.
[2020-05-18] MEDS ORDERED: methylPREDNISolone Sod Succ/PF 125 MG/2 ML VIAL ONE (22:43)
[2020-05-18 22:44] LABS: #Eosinphils 0.1 thou/uL (0.0-0.7); #Lymphocytes 2.1 thou/uL (1.20-3.40); #Monocytes 0.6 thou/uL (0.11-0.59); #Neutrophils 5.1 thou/uL (1.40-6.50); %Basophils 0.5 % (0.0-1.0); %Eosinophils 1.9 % (0.0-10.0); %Lymphocytes 26.3 % (21.0-51.0); %Neutrophils 63.3 % (42.0-75.0); Hemoglobin 13.9 g/dL (14.0-18.0); Mean Corpuscular Hemoglobin 28.3 pg (27.0-31.0); Mean Corpuscular Volume 88.4 fL (78.0-98.0); Mean Platelet Volume 10.8 fL (7.4-10.4); Platelet Count 163 thou/uL (130-400); Red Blood Cell (RBC) Count 4.92 mill/uL (4.70-6.10)
[2020-05-18 23:05] LABS: ALT (SGPT) 20 U/L (8-55); AST (SGOT) 20 U/L (5-34); Albumin 3.8 g/dL (3.4-4.8); Alkaline Phosphatase 97 U/L (40-110); Anion Gap 15 mmol/L (10-20); BUN (Urea Nitrogen) 19 mg/dL (8.4-25.7); Bilirubin, Total 0.2 mg/dL (0.2-1.2); Calc. Creatinine Clearance 0 mL/min (70-130); Carbon Dioxide 23 mmol/L (23-31); Chloride 103 mmol/L (98-107); Estimated GFR-MDRD 57; Globulin 3.5 g/dL (2.4-3.5); Glucose 198 mg/dL (83-110); Potassium 4.3 mmol/L (3.5-5.1); Protein, Total 7.3 g/dL (5.8-8.1); Sodium 137 mmol/L (136-145)
== END 2020-05-19 00:30 | disposition home or self-care (01) ==
LOC: ERS 20:54
DX: J44.1 Chronic obstructive pulmonary disease with (acute) exacerbation (principal); E66.01 Morbid (severe) obesity due to excess calories; E78.5 Hyperlipidemia, unspecified; E78.00 Pure hypercholesterolemia, unspecified; E66.9 Obesity, unspecified; I11.0 Hypertensive heart disease with heart failure; I50.9 Heart failure, unspecified; E11.9 Type 2 diabetes mellitus without complications; Z79.01 Long term (current) use of anticoagulants; Z79.899 Other long term (current) drug therapy
CPT/HCPCS: 71045; 80053; 83880; 84484; 85025; 93005; 94640; 96374; J2930; J7620

== ENCOUNTER 2020-08-05 01:16 | Inpatient (IN) | payer MEDICARE ==
[2020-08-05] MEDS ORDERED: Promethazine HCl 12.5 MG in Sodium Chloride 0.9% 50 ML IVPB PRN (04:23)
[2020-08-05] MEDS ORDERED: Guaifenesin DM 100-10/5 ML UDCUP PO PRN (04:23)
[2020-08-05] MEDS ORDERED: cloNIDine 0.1 MG TAB PO PRN (04:23)
[2020-08-05] MEDS ORDERED: Acetaminophen 325 MG TAB PO PRN (04:23)
[2020-08-05] MEDS ORDERED: Labetalol HCl 100 MG/20 ML VIAL SLOW IVP PRN (04:23)
[2020-08-05] MEDS ORDERED: Ondansetron PF 4 MG/2 ML Vial IVP PRN (04:23)
[2020-08-05] MEDS ORDERED: Morphine 2 MG/ML VIAL SLOW IVP PRN (04:23)
[2020-08-05] MEDS ORDERED: HYDROcodone/Acetaminophen 5/325 mg Tablet PO PRN (04:23)
[2020-08-05] MEDS ORDERED: Electrolyte Replacement Protocol 1 EACH FS SCH (04:30)
[2020-08-05] MEDS ORDERED: Dextrose 50% Abboject 50 ML SYRINGE SLOW IVP PRN (04:30)
[2020-08-05] MEDS ORDERED: Dextrose 5% in Water 1,000 ML IV PRN (04:30)
--- NOTE | 2020-08-05 04:33 | PDOC.HHP ---
Hospitalist HPI - History of Present Illness Shortness of breath History of Present Illness: Patient is an 80 year old male with PMH COPD on home o2, DM, HTN, COPD, CHF admitted as transfer from [place] for hypoxia and shortness of breath. Patient was brought in by son for wheezing, hypoxia to 80s, hyperglycemia to [place] ED, patient uses 2L O2 at nighttime normally however was in 80s at home and needed 4L by nasal cannula to maintain saturations in ED. He had a fever of 101.5 by EMS and blood sugar was in 300s and was wheezing. Patient was given albuterol, steroids, IVF by EMS. At ED, CT chest revealed bilateral ground glass opacities concerning for COVID 19 infection. lactic acid was 1.7, tni 0.016, flu swab negative, wbc 7.6. Magnesim was <0.6. patient was given vancomycin, aztreonam and azithromycin and transferred to [facility] here for higher level or care. Patient lives in a house alone, daughter lives next door. Patient denies covid exposure he is aware of. Hospitalist ROS - Review of Systems Constitutional: reports: fever, chills, weakness, malaise. denies: sweats, other Eyes: denies: pain, vision change, conjunctivae inflammation, eyelid inflammation, redness, other ENT: denies: ear pain, ear discharge, nose pain, nose discharge, nose congestion, mouth pain, mouth swelling, throat pain, throat swelling, other Respiratory: reports: cough, shortness of breath. denies: dry, hemoptysis, SOB with excertion, pleuritic pain, sputum, wheezing, other Cardiovascular: denies: chest pain, palpitations, orthopnea, paroxysmal noc. dyspnea, edema, light headedness, other Gastrointestinal: denies: nausea, vomiting, abdominal pain, diarrhea, constipation, melena, hematochezia, other Genitourinary: denies: dysuria, frequency, incontinence, hematuria, retention, other Musculoskeletal: denies: neck pain, shoulder pain, arm pain, back pain, hand pain, leg pain, foot pain, other Skin: denies: rash, lesions, del, bruising, other Neurological: denies: weakness, numbness, incoordination, change in speech, confusion, seizures, other All other systems reviewed; all pertinent +/- noted in HPI/Subj - Medication Medications: reviewed, see admission documents for list Hospitalist History - Past Medical History Other Medical History: CHF COPD T2DM HLD HTN gout BPH - Past Surgical History Other Surgical History: hemorrhoid surgery - Family History Family History: reports: no pertinent history - Social History Alcohol: reports: None Drugs: reports: none - Exam General Appearance: NAD, awake alert Eye: PERRL, anicteric sclera ENT: normocephalic atraumatic, no oropharyngeal lesions, moist mucosa Neck: supple, symmetric, no JVD, no thyromegaly, no lymphadenopathy, no carotid bruit Heart: RRR, no murmur, no gallops, no rubs, normal peripheral pulses Respiratory: CTAB, no rales, no ronchi, normal chest expansion, no tachypnea, normal percussion, wheezes Gastrointestinal: soft, non-tender, non-distended, normal bowel sounds, no palpable masses, no hepatomegaly, no splenomegaly, no bruit Extremities: no cyanosis, no clubbing, no edema Skin: normal turgor, no lesions, no rashes Neurological: cranial nerve grossly intact, normal sensation to touch, no weakness, no focal deficits, no new deficit Musculoskeletal: normal tone, normal strength, no muscle wasting Psychiatric: normal affect, normal behavior, A&O x 3 Hospitalist Results - Labs Additional comment: outside records including labs, imaging reports, microbiology reviewed by me. see HPI for pertinent findings. Hospitalist H&P A/P - Plan Plan: Patient is an 80 year old male with PMH COPD on home o2, DM, HTN, COPD, CHF admitted as transfer from [place] for hypoxia and shortness of breath. # hypoxia # bilateral pneumonia/ground glass opacities CT chest report notes that findings are suspicious for COVID 19, patient with fever, hypoxia and will be treated empirically for COVID until swab results later today. - admit to IMCU - empiric aztreonam/levaquin (PCN allergy) - start IV decadron - consult pulmonary medicine - follow up covid swab - blood cultures sent in [place], monitor blood culture results # COPD exacerbation - I suspect patient is having COPD exacerbation, will be on steroids and antibiotics for other conditions above, add neb treatments if covid negative # diarrhea - reports a few days of diarrhea, reports has been on antibiotics recently, add probiotic, monitor stool consistency to see if C diff testing needed # hypomagnisemia - significant low of 0.6, replete now and trend Mg daily # chronic diastolic CHF - echo 10/2019 w/ EF 55-60%, grade III diastolic dysfunction, mild valve disease # T2DM w/ hyperglycemia # HLD # HTN # gout # BPH - resume home medications once med rec complete DVT ppx - resume eliquis, follow up home med list reconciliation GI ppx
[2020-08-05] MEDS ORDERED: Magnesium 2 GM/50 ML 2 GM in Premix Bag 1 BAG IVPB SCH (05:00)
[2020-08-05] MEDS: HumaLOG 300 UNITS/3 ML VIAL SC PRN ×4 (05:44→21:21)
[2020-08-05] MEDS: Dexamethasone 4 mg/ml Vial SLOW IVP SCH (05:45)
[2020-08-05] MEDS ORDERED: Aztreonam 2 GM in Sodium Chloride 0.9% 100 ML IVPB SCH ×2 (06:00→08:00)
[2020-08-05 07:50] LABS: SARS-CoV-2 MS2 Positive; SARS-CoV-2 N Gene Positive; SARS-CoV-2 S Gene Positive; SARS-CoV-2 by NAA DETECTED (NotDetected); SARS-CoV-2 orf1ab Positive
[2020-08-05] MEDS: Tamsulosin HCl 0.4 MG CAP PO SCH (08:52)
[2020-08-05] MEDS: Apixaban 5 MG TAB PO SCH ×2 (08:52→21:19)
[2020-08-05] MEDS: Carvedilol 25 MG TAB PO SCH ×2 (08:52→16:04)
[2020-08-05] MEDS: Saccharomyces boulardii 250 MG CAP PO SCH ×2 (08:52→21:19)
[2020-08-05] MEDS: Allopurinol 100 MG TAB PO SCH (08:52)
[2020-08-05] MEDS: Famotidine 20 MG TAB PO SCH ×2 (08:52→21:18)
[2020-08-05] MEDS: Amlodipine 10 MG TAB PO SCH (08:52)
[2020-08-05] MEDS ORDERED: Insulin Glargine 12 UNITS in Pre-Filled Syringe 1 EACH SC SCH ×2 (09:00→21:00)
[2020-08-05] MEDS ORDERED: Non-Formulary Item 1 EACH (Insulin Glargine,Hum.Rec.Anlog [Lantus Solostar] 100 UNIT/ML P SC SCH (09:00)
[2020-08-05] MEDS ORDERED: Heparin 5,000 UNITS/ML VIAL SC SCH (09:00)
[2020-08-05 11:55] LABS: SARS-CoV-2 IgG Ab Non-Reactive (NonReactive); SARS-CoV-2 IgG Index 0.07 S/CO (< 1.40)
[2020-08-05] MEDS ORDERED: Benzonatate 100 MG CAP PO PRN (12:16)
[2020-08-05] MEDS ORDERED: Cepastat Lozenges 1 LOZ PO PRN (12:16)
[2020-08-05] MEDS ORDERED: hydrALAZINE 20 MG/ML VIAL SLOW IVP PRN (12:16)
[2020-08-05] MEDS ORDERED: Senokot S 8.6-50 MG TAB PO PRN (12:16)
[2020-08-05] MEDS ORDERED: Bisacodyl 10 MG SUPP PR PRN (12:16)
[2020-08-05] MEDS ORDERED: Loratadine 10 MG TAB PO PRN (12:16)
[2020-08-05] MEDS ORDERED: Sodium Chloride 0.65% Nasal 44 ML BOT EA NARE PRN (12:16)
[2020-08-05] MEDS ORDERED: Calcium Carbonate 500 MG ChewTAB PO PRN (12:16)
[2020-08-05] MEDS ORDERED: Ondansetron ODT 4 MG TAB SL PRN (12:16)
[2020-08-05] MEDS ORDERED: Diabetic Tussin 200 MG/10 ML UDCUP PO PRN (12:16)
[2020-08-05] MEDS ORDERED: Loperamide HCl 2 MG CAP PO PRN (12:16)
--- NOTE | 2020-08-05 12:21 | PDOC.HOSPP ---
- Subjective Encounter Date: 08/05/20 Encounter Time: 09:00 Subjective: Patient is short of breath, no fever, wheezing, feeling weak, no nausea or vomiting - Objective Vital Signs & Weight: Vital Signs (12 hours) Temp Pulse Ox 08/05/20 08:00 96.8 F L 08/05/20 02:57 96.7 F L 08/05/20 02:45 93 L Weight Weight 334 lb 1 oz Most Recent Monitor Data Heart Rate from ECG 63 NIBP 160/84 NIBP BP-Mean 109 Respiration from ECG 19 SpO2 88 I&O: 08/04/20 08/05/20 08/06/20 06:59 06:59 06:59 Intake Total 530 Balance 530 Additional Labs: Accuchecks 08/05/20 10:39 POC Glucose 440 H Radiology Reviewed by me: Yes EKG Reviewed by me: Yes Hospitalist ROS - Review of Systems Constitutional: reports: weakness, malaise ENT: denies: ear pain, ear discharge, nose pain, nose discharge, nose congestion, mouth pain, mouth swelling, throat pain, throat swelling, other Respiratory: reports: cough, shortness of breath, SOB with excertion. denies: dry, hemoptysis, pleuritic pain, sputum, wheezing, other Cardiovascular: denies: chest pain, palpitations, orthopnea, paroxysmal noc. dyspnea, edema, light headedness, other Gastrointestinal: denies: nausea, vomiting, abdominal pain, diarrhea, constipation, melena, hematochezia, other Genitourinary: denies: dysuria, frequency, incontinence, hematuria, retention, other Musculoskeletal: denies: neck pain, shoulder pain, arm pain, back pain, hand pain, leg pain, foot pain, other - Medication Medications: Active Medications Generic Name Dose Route Start Last Admin Trade Name Freq PRN Reason Stop Dose Admin Allopurinol 100 mg 08/05/20 09:00 08/05/20 08:52 Allopurinol 100 Mg Tab PO 100 mg DAILY ALIYAH Administration Amlodipine Besylate 10 mg 08/05/20 09:00 08/05/20 08:52 Amlodipine 10 Mg Tab PO 10 mg DAILY ALIYAH Administration Apixaban 5 mg 08/05/20 09:00 08/05/20 08:52 Apixaban 5 Mg Tab PO 5 mg BID ALIYAH Administration Carvedilol 25 mg 08/05/20 08:00 08/05/20 08:52 Carvedilol 25 Mg Tab PO 25 mg BID-WM ALIYAH Administration Dexamethasone 6 mg 08/05/20 05:00 08/05/20 05:45 Dexamethasone 4 Mg/Ml Vial SLOW IVP 6 mg Q24H ALIYAH Administration Famotidine 20 mg 08/05/20 09:00 08/05/20 08:52 Famotidine 20 Mg Tab PO 20 mg BID ALIYAH Administration Insulin Glargine 12 units/ 0.12 mls @ 0 mls/hr 08/05/20 09:00 08/05/20 08:52 Miscellaneous Medication SC 0.12 mls QAM ALIYAH Administration Saccharomyces Boulardii 250 mg 08/05/20 09:00 08/05/20 08:52 Saccharomyces Boulardii 250 Mg Cap PO 250 mg BID ALIYAH Administration Sodium Chloride 10 ml 08/05/20 09:00 08/05/20 08:53 Flush - Normal Saline 10 Ml Syringe IVF 10 ml Q12HR ALIYAH Administration Tamsulosin HCl 0.4 mg 08/05/20 09:00 08/05/20 08:52 Tamsulosin Hcl 0.4 Mg Cap PO 0.4 mg DAILY ALIYAH Administration - Exam General Appearance: NAD, awake alert Eye: PERRL, anicteric sclera ENT: normocephalic atraumatic, no oropharyngeal lesions Neck: supple, symmetric, no JVD Heart: RRR, no murmur, no gallops Respiratory: tachypneic, wheezes Gastrointestinal: soft, non-tender, non-distended, normal bowel sounds, no palpable masses Extremities: no cyanosis, no clubbing Skin: normal turgor, no lesions Neurological: no focal deficits Musculoskeletal: normal tone, normal strength Psychiatric: normal affect, normal behavior Hosp A/P (1) Acute respiratory failure with hypoxia Code(s): J96.01 - ACUTE RESPIRATORY FAILURE WITH HYPOXIA Status: Acute (2) Pneumonia due to 2019-nCoV Code(s): U07.1 - COVID-19; J12.89 - OTHER VIRAL PNEUMONIA Status: Acute (3) UTI (urinary tract infection) Status: Acute Qualifiers: Urinary tract infection type: acute cystitis Hematuria presence: without hematuria Qualified Code(s): N30.00 - Acute cystitis without hematuria (4) Physical deconditioning Code(s): R53.81 - OTHER MALAISE Status: Acute (5) BPH (benign prostatic hyperplasia) Code(s): N40.0 - BENIGN PROSTATIC HYPERPLASIA WITHOUT LOWER URINRY TRACT SYMP Status: Chronic Qualifiers: Lower urinary tract symptom presence: symptoms absent Qualified Code(s): N40.0 - Benign prostatic hyperplasia without lower urinary tract symptoms (6) CHF (congestive heart failure) Code(s): I50.9 - HEART FAILURE, UNSPECIFIED Status: Chronic Qualifiers: Heart failure type: diastolic Heart failure chronicity: chronic Qualified Code(s): I50.32 - Chronic diastolic (congestive) heart failure (7) COPD (chronic obstructive pulmonary disease) Status: Chronic Qualifiers: Chronic bronchitis type: unspecified (8) Diabetes mellitus Code(s): E11.9 - TYPE 2 DIABETES MELLITUS WITHOUT COMPLICATIONS Status: Chronic Qualifiers: Diabetes mellitus type: type 2 Diabetes mellitus keno terminal operator insulin use: with mcc use Diabetes mellitus complication status: with hyperglycemia Qualified Code(s): E11.65 - Type 2 diabetes mellitus with hyperglycemia; Z79.4 - correction (current) use of insulin (9) Gout Code(s): M10.9 - GOUT, UNSPECIFIED Status: Chronic (10) HTN (hypertension) Code(s): I10 - ESSENTIAL (PRIMARY) HYPERTENSION Status: Chronic (11) Hyperlipidemia Code(s): E78.5 - HYPERLIPIDEMIA, UNSPECIFIED Status: Chronic (12) Morbid obesity Code(s): E66.01 - MORBID (SEVERE) OBESITY DUE TO EXCESS CALORIES Status: Chronic (13) Normocytic anemia Code(s): D64.9 - ANEMIA, UNSPECIFIED Status: Chronic (14) Obstructive sleep apnea Code(s): G47.33 - OBSTRUCTIVE SLEEP APNEA (ADULT) (PEDIATRIC) Status: Chronic - Plan old records reviewed/req, continue antibiotics, respiratory therapy, DVT proph w/lovenox Change Lantus insulin 12 units twice daily Aggressive sliding scale Discontinue Azactam and Levaquin, changed to Rocephin Continue dexamethasone Continue oxygen Add Dulera Consult infectious disease Add vitamin supplementation Monitor for any deterioration Follow-up on culture result
[2020-08-05] MEDS ORDERED: cefTRIAXone\\ROCEPHIN 1 GM in Sodium Chloride 0.9% 100 ML IVPB SCH (13:00)
[2020-08-05] MEDS ORDERED: Albuterol Sulfate 2.5 mg/3 ml Neb NEB SCH (13:00)
[2020-08-05] MEDS: Albuterol 200 PUFF (6.7GM INHALER) INH SCH ×2 (13:50→18:09)
[2020-08-05] MEDS: Nystatin Powder 15 GM BOT TOP PRN (16:04)
[2020-08-05] MEDS ORDERED: REMDESIVIR (EUA) 200 MG in Sodium Chloride 0.9% 250 ML 210 ML IV SCH (18:00)
[2020-08-05] MEDS: Mometasone 200 MCG/Formoterol 5 MCG 120 PUFF INHALER INH SCH (18:09)
--- NOTE | 2020-08-05 19:48 | CON ---
DATE OF CONSULTATION: 08/05/2020 REASON FOR CONSULTATION: COVID-19 pneumonia. HISTORY OF PRESENT ILLNESS: The patient is an 80-year-old male from [place]. He presented to the hospital yesterday with increasing shortness of breath and hypoxemia. He apparently uses oxygen at home. He had a fever up to 101.5. CT showed ground-glass opacities and he was diagnosed with COVID pneumonia based on COVID rapid test. It is difficult to get a history from the patient because he lies about everything in his history. I have talked to his daughter to confirm his medical history. MEDICAL HISTORY: 1. CHF. 2. COPD. 3. Diabetes mellitus type 2. 4. Hyperlipidemia. 5. Hypertension. 6. Gout. 7. Prostatic hypertrophy. PAST SURGICAL HISTORY: Hemorrhoidectomy. FAMILY HISTORY: Unremarkable. SOCIAL HISTORY: Nonsmoker. Does not consume alcohol. REVIEW OF SYSTEMS: Difficult to obtain because he is not truthful about anything. PHYSICAL EXAMINATION: VITAL SIGNS: Temperature 97.3, pulse 69, blood pressure 154/83, O2 saturation generally in the upper 80s on 4 L nasal cannula. GENERAL: He is in no acute distress. HEENT: Unremarkable. NECK: No adenopathy or JVD. LUNGS: Few inspiratory crackles. CARDIAC: S1 and S2. Regular without murmur. ABDOMEN: Soft and nontender. EXTREMITIES: No clubbing, cyanosis, or edema. DIAGNOSTIC DATA: CT shows scattered bilateral interstitial infiltrates. LABORATORY DATA: White blood cell count 7.7, hematocrit 42.6, and platelet count 119. PH of 7.35, pCO2 of 48, pO2 of 164. Sodium 140, potassium 4.0, chloride 103, CO2 of 23, BUN 15, creatinine 1.2, glucose 377. BNP is 29. ASSESSMENT: 1. COVID-19 pneumonia. 2. Acute hypoxic respiratory failure. PLAN: Agree with current plan of antibiotics, steroids, anticoagulation. He is at high risk for worsening from COVID disease. Additionally, we need to start him on vitamin D and zinc. Job ID: [id number]
--- NOTE | 2020-08-05 20:58 | CON ---
DATE OF CONSULTATION: 08/05/2020 CONSULT REASON: SARS-CoV-2 infection with pneumonia. HISTORY OF PRESENT ILLNESS: An 80-year-old who has had 4 admissions previously in [address] [facility], the first one for atrial fibrillation with RVR, new onset, and CHF and obesity hypoventilation syndrome. His secondary diagnoses then were hypertension, type 2 diabetes, and COPD. He was given diltiazem. EF was found to be 25% to 30%. He was converted to oral calcium channel blockers and then those were stopped once the reduced ejection fraction was identified. Then, he was given a Coreg, digoxin, and Dr. Jj felt that the reduced EF was probably due to the uncontrolled heart rate. He was given Eliquis for anticoagulation. The second admission in October 2019, basically for worsening dyspnea and lower extremity edema. He was given IV diuresis, inhalers. The third admission in October, this time was for acute renal insufficiency. He was mildly hypotensive, systolic in the 80s, I would consider that mildly, and then he was having some diarrhea which resolved. He was given IV fluids carefully, so it was felt that the diarrhea had contributed to the findings. His renal function improved with a discharge creatinine of 1.68. Then, the final one in November which was again for renal insufficiency. He had digoxin toxicity as well and he was given the monoclonal antibody plus methylprednisolone and Benadryl. The creatinine peaked at 6.73 and then he was given IV fluids, metformin and RAJ inhibitors were discontinued. Discharge creatinine was 1.43. Then, at this time, he presents with dyspnea. His pulse ox was in the upper 80s on room air and temperature 101.5 on August 04. He was given Solu-Medrol, inhalers. Other findings; BP 150/73, O2 saturation 86, improved to 90% O2 saturation on 4 L. So, he was awake and answering questions. In the physical exam, there was diffuse wheezing noted. He had pitting edema in lower extremities noted. The SARs-CoV PCR was detected. The antibody was nonreactive. Currently, Mr. Hogan is in the [facility]. He is tachypneic and has obvious some respiratory distress. He is wheezing diffusely and he has nasal cannula O2 and saturating at 89% to 91%. He is very talkative and gave a very long history of his accomplishments and some things are not likely to be true. Family member stated to the nurse apparently that he likes to confabulate about his past history. He denies everything right now. He basically told me that he feels the same as he has always felt. He is always short of breath and he uses oxygen at home and has a powered wheelchair and cannot walk. He has a physical therapist that comes to his home. He has a little bit of cough, but no sputum production. No chest pain. No abdominal pain. He is voiding in the urinal, and there was evidence of osteoarthrosis with some pain in the knees and ankles. No diarrhea. No genitourinary symptoms. No neurological symptoms. MEDICAL HISTORY: Obesity, cardiomyopathy with atrial fibrillation. His last echo showed a very low EF that was during an episode of paroxysmal atrial fibrillation. The echo has not been repeated since. Hypertension, COPD, sleep apnea, hypoventilation syndrome, type 2 diabetes, and hyperlipidemia. SOCIAL HISTORY: Never smoker, reportedly. Has a number of children. He lives in [facility] and no drug use. FAMILY HISTORY: Type 2 diabetes, hypertension. ALLERGIES: CIPROFLOXACIN, ITCHING. PENICILLINS. MEDICATIONS: At the moment, he is receivin. Inhalers. 2. Zyloprim. 3. Eliquis. 4. Tessalon. 5. Ceftriaxone. 6. Decadron. 7. Insulin. 8. Ondansetron. 9. Zinc. 10. Saccharomyces. PHYSICAL EXAMINATION: VITAL SIGNS: T-max 97.3, BP 150/88, heart rate 63, breathing 28 to 32 times a minute, saturating around 88%. It does not improve much once he stops talking, but he was pretty much talking throughout the interview and the exam. Skin: Mild erythema in the perianal area. Maceration. Peripheral IV access. He is voiding in the urinal. No lymphadenopathy. HEENT: Ocular movements conjugate. He has no teeth in the upper maxilla, he has numerous teeth in the mandible, some decay and gum disease. NECK: No jugular vein distention. LUNGS: With quite pronounced wheezing. HEART: S1, S2 with diminished heart sounds. Regular rate. No S3 or S4. ABDOMEN: With very prominent panniculus, but not tender. No distention. No ascites or organomegaly. No bladder distention. NEUROLOGIC: He is able to move extremities, but he is diffusely weak. He is awake, knows where he is and the date as well, but he had a lot of confabulation about his past history with details that do not seem to probably be reliably true. CHEMISTRY: Creatinine was 1.2. Sodium was 140. Lactic acid 1.4. Liver normal. CK was normal. Troponin was normal. Albumin was less than 1, globulin 3.3. Urinalysis with urine protein of 100, glucose greater than 1000. WBC 7.7, hemoglobin 13.4, platelets 119,000, with 59% neutrophils, 2% bands. INR 1.1. UA had 11-20 wbc's. The SARs-CoV was detected. Hepatitis C/HIV was nonreactive, previous tests. He had a negative SARs-COVID IgG antibody on August 05. A chest CT showed ground-glass opacities throughout lung parenchyma with a predominantly peripheral distribution. ASSESSMENT: 1. Hypertension. 2. Diabetes type 2. 3. Chronic kidney disease, 3. 4. Hypoventilation syndrome. 5. Morbid obesity. 6. Cardiomyopathy. 7. Atrial fibrillation. 8. Chronic obstructive pulmonary disease with chronic oxygen dependency and hypoventilation syndrome and now evidence of SARs-CoV-2 pneumonia. DISCUSSION: The patient is at a very high risk for further decompensation going forward. He seems to be in the first week of illness and is already on corticosteroids, and we will go ahead and add remdesivir to his treatment. He has very low albumin, hard to believe, that is less than 1. The previous albumins were actually normal, so I do not know if this is reliable. I will consider repeating it; the one in July was 3.8. Monitor markers. I do not know what his advance directive is at this point. He probably does not need ceftriaxone. Job ID: [id number]
[2020-08-05] MEDS: Atorvastatin Calcium 40 MG TAB PO SCH (21:19)
[2020-08-05] MEDS: Cholecalciferol 1,000 UNITS (25 MCG) TAB PO SCH (21:19)
[2020-08-06] MEDS: HumaLOG 300 UNITS/3 ML VIAL SC PRN ×6 (01:11→17:35)
[2020-08-06] MEDS: Albuterol 200 PUFF (6.7GM INHALER) INH SCH ×3 (01:11→23:56)
[2020-08-06 04:19] LABS: #Lymphocytes 1.1 thou/uL (1.20-3.40); #Monocytes 0.4 thou/uL (0.11-0.59); #Neutrophils 7.3 thou/uL (1.40-6.50); %Basophils 0.2 % (0.0-1.0); %Eosinophils 0.1 % (0.0-10.0); %Lymphocytes 11.9 % (21.0-51.0); %Monocytes 4.9 % (0.0-10.0); %Neutrophils 82.9 % (42.0-75.0); Hemoglobin 12.5 g/dL (14.0-18.0); Mean Corpuscular HGB CONC 30.9 g/dL (32.0-36.0); Mean Corpuscular Volume 90.6 fL (78.0-98.0); Mean Platelet Volume 10.5 fL (7.4-10.4); Platelet Count 144 thou/uL (130-400); Red Blood Cell (RBC) Count 4.47 mill/uL (4.70-6.10); White Blood Cell (WBC) Count 8.8 thou/uL (4.8-10.8)
[2020-08-06 04:49] LABS: ALT (SGPT) 20 U/L (8-55); AST (SGOT) 22 U/L (5-34); Albumin 3.1 g/dL (3.4-4.8); Alkaline Phosphatase 65 U/L (40-110); Anion Gap 13 mmol/L (10-20); BUN (Urea Nitrogen) 20 mg/dL (8.4-25.7); Bilirubin, Total 0.3 mg/dL (0.2-1.2); Calc. Creatinine Clearance 102 mL/min (70-130); Calcium 8.5 mg/dL (7.8-10.44); Carbon Dioxide 26 mmol/L (23-31); Chloride 100 mmol/L (98-107); Globulin 3.2 g/dL (2.4-3.5); Glucose 461 mg/dL (83-110); Magnesium 2.3 mg/dL (1.6-2.6); Protein, Total 6.3 g/dL (5.8-8.1); Sodium 135 mmol/L (136-145)
[2020-08-06] MEDS: Dexamethasone 4 mg/ml Vial SLOW IVP SCH (05:41)
[2020-08-06] MEDS: Mometasone 200 MCG/Formoterol 5 MCG 120 PUFF INHALER INH SCH ×2 (05:44→23:57)
[2020-08-06] MEDS: Saccharomyces boulardii 250 MG CAP PO SCH ×2 (08:56→23:57)
[2020-08-06] MEDS: Zinc Sulfate 220 MG CAP PO SCH (08:56)
[2020-08-06] MEDS: Amlodipine 10 MG TAB PO SCH (08:56)
[2020-08-06] MEDS: Ascorbic Acid 500 mg Chewable Tablet PO SCH (08:56)
[2020-08-06] MEDS: Allopurinol 100 MG TAB PO SCH (08:56)
[2020-08-06] MEDS: Apixaban 5 MG TAB PO SCH ×2 (08:57→23:57)
[2020-08-06] MEDS: Tamsulosin HCl 0.4 MG CAP PO SCH (08:57)
[2020-08-06] MEDS: Insulin Glargine 20 UNITS in Pre-Filled Syringe 1 EACH SC SCH ×2 (08:57→23:57)
[2020-08-06] MEDS: Famotidine 20 MG TAB PO SCH ×2 (08:57→23:57)
[2020-08-06] MEDS: Carvedilol 25 MG TAB PO SCH ×2 (08:57→18:14)
[2020-08-06] MEDS ORDERED: Zinc Sulfate 220 MG CAP PO SCH (09:00)
--- NOTE | 2020-08-06 09:29 | PRG ---
DATE OF SERVICE: 08/06/2020 SUBJECTIVE: Mr. Hogan says he feels good, had no acute complaints. OBJECTIVE: VITAL SIGNS: Temperature is 97, pulse 57, blood pressure 158/74, O2 saturation 97% on 4 L. HEENT: Unremarkable. NECK: No adenopathy or JVD. LUNGS: Crackles. CARDIAC: S1, S2. Regular. ABDOMEN: Soft. EXTREMITIES: No edema. LABORATORY DATA: White blood cell count 8.8, hematocrit 40, and platelet count 144. Sodium 135, potassium 4, chloride 100, CO2 of 26, BUN 20, creatinine 1.2, glucose 461. Ferritin 621. C-reactive protein is 12.6. ASSESSMENT: 1. COVID-19 pneumonia with hypoxemia requiring supplemental oxygen. 2. Obesity. 3. Diabetes mellitus. PLAN: Remdesivir has been started by Dr. Miramontes. The patient continues steroids and anticoagulation and supplemental oxygen. Job ID: [id number]
[2020-08-06] MEDS: REMDESIVIR (EUA) 100 MG in Sodium Chloride 0.9% 250 ML 230 ML IV SCH (18:14)
--- NOTE | 2020-08-06 20:17 | PDOC.HOSPP ---
- Subjective Encounter Date: 08/06/20 Encounter Time: 14:45 Subjective: Patient evaluated for COVID-19 pneumonia with respiratory failure. Shortness of breath improving. Denies any chest pain or palpitation. - Objective Vital Signs & Weight: Vital Signs (12 hours) Pulse Ox 08/06/20 11:34 92 L Weight Weight 334 lb 1 oz Most Recent Monitor Data Heart Rate from ECG 58 NIBP 148/100 NIBP BP-Mean 116 Respiration from ECG 27 SpO2 93 I&O: 08/05/20 08/06/20 08/07/20 06:59 06:59 06:59 Intake Total 530 2958 500 Output Total 1020 500 Balance 530 1938 0 Result Diagrams: 08/06/20 04:07 08/06/20 04:07 Additional Labs: Accuchecks 08/06/20 08/06/20 08/06/20 16:27 12:23 09:09 POC Glucose 272 H 328 H 321 H 08/06/20 08/06/20 08/05/20 03:34 00:41 20:19 POC Glucose 430 H 478 H 425 H 08/05/20 03:01 POC Glucose 365 H Abnormal Lab Results - Last 48 hrs 08/05/20 03:00: SARS-CoV-2 (PCR) DETECTED A* 08/06/20 04:07: Sodium 135 L, Albumin 3.1 L, Albumin/Globulin Ratio 1.0 L 08/06/20 04:07: RBC 4.47 L, Hgb 12.5 L, Hct 40.5 L, MCHC 30.9 L, MPV 10.5 H, Neutrophils % 82.9 H, Lymphocytes % 11.9 L, Neutrophils # 7.3 H, Lymphocytes # 1.1 L 08/06/20 04:07: C-Reactive Protein 12.61 H 08/06/20 04:07: Ferritin 621.22 H Microbiology - Entire Visit 08/05/20 04:25 Stool C. difficile GDH Antigen & Toxins - Final Radiology Reviewed by me: Yes (Chest x-raybilateral pneumonia) EKG Reviewed by me: Yes (Sinus rhythm on telemetry) Hospitalist ROS - Review of Systems Cardiovascular: denies: chest pain, palpitations, orthopnea, paroxysmal noc. dyspnea, edema, light headedness, other Gastrointestinal: denies: nausea, vomiting, abdominal pain, diarrhea, constipation, melena, hematochezia, other - Medication Medications: Active Medications Generic Name Dose Route Start Last Admin Trade Name Freq PRN Reason Stop Dose Admin Albuterol Sulfate 2 puff 08/05/20 13:00 08/06/20 08:55 Albuterol 200 Puff (6.7gm Inhaler) INH 2 inh [id number] ALIYAH Administration Allopurinol 100 mg 08/05/20 09:00 08/06/20 08:56 Allopurinol 100 Mg Tab PO 100 mg DAILY ALIYAH Administration Amlodipine Besylate 10 mg 08/05/20 09:00 08/06/20 08:56 Amlodipine 10 Mg Tab PO 10 mg DAILY ALIYAH Administration Apixaban 5 mg 08/05/20 09:00 08/06/20 08:57 Apixaban 5 Mg Tab PO 5 mg BID ALIYAH Administration Ascorbic Acid 1,000 mg 08/06/20 09:00 08/06/20 08:56 Ascorbic Acid 500 Mg Chewable Tablet PO 1,000 mg DAILY ALIYAH Administration Atorvastatin Calcium 40 mg 08/05/20 21:00 08/05/20 21:19 Atorvastatin Calcium 40 Mg Tab PO 40 mg HS ALIYAH Administration Carvedilol 25 mg 08/05/20 08:00 08/06/20 18:14 Carvedilol 25 Mg Tab PO 25 mg BID-WM ALIYAH Administration Cholecalciferol 5,000 units 08/05/20 21:00 08/05/20 21:19 Cholecalciferol 1,000 Units (25 Mcg) Tab PO 5,000 units HS ALIYAH Administration Dexamethasone 6 mg 08/05/20 05:00 08/06/20 05:41 Dexamethasone 4 Mg/Ml Vial SLOW IVP 6 mg Q24H ALIYAH Administration Famotidine 20 mg 08/05/20 09:00 08/06/20 08:57 Famotidine 20 Mg Tab PO 20 mg BID ALIYAH Administration Remdesivir 100 mg/ Sodium 250 mls @ 250 mls/hr 08/06/20 18:00 08/06/20 18:14 Chloride IV 08/09/20 18:59 250 mls 1800 ALIYAH Administration Insulin Glargine 20 units/ 0.2 mls @ 0 mls/hr 08/06/20 09:00 08/06/20 08:57 Miscellaneous Medication SC 0.2 mls BID ALIYAH Administration Insulin Human Lispro 0 units 08/05/20 12:18 08/06/20 17:35 Humalog 300 Units/3 Ml Vial SC 9 unit .AGGRESSIVE SLIDING PRN Administration Aggressive Correctional Scale Insulin Human Lispro 0 units 08/05/20 12:18 08/05/20 21:21 Humalog 300 Units/3 Ml Vial SC 5 unit .BEDTIME SLIDING SC PRN Administration Bedtime Correctional Scale Mometasone Furoate/Formoterol Fumar 1 puff 08/05/20 18:30 08/06/20 05:44 Mometasone 200 Mcg/Formoterol 5 Mcg 120 Puff Inhaler INH 1 puff BID-RT ALIYAH Administration Nystatin 0 gm 08/05/20 15:14 08/05/20 16:04 Nystatin Powder 15 Gm Bot TOP 1 applic BIDPRN PRN Administration Rash/Topical Irritation Saccharomyces Boulardii 250 mg 08/05/20 09:00 08/06/20 08:56 Saccharomyces Boulardii 250 Mg Cap PO 250 mg BID ALIYAH Administration Sodium Chloride 10 ml 08/05/20 09:00 08/06/20 08:57 Flush - Normal Saline 10 Ml Syringe IVF 10 ml Q12HR ALIYAH Administration Tamsulosin HCl 0.4 mg 08/05/20 09:00 08/06/20 08:57 Tamsulosin Hcl 0.4 Mg Cap PO 0.4 mg DAILY ALIYAH Administration Zinc Sulfate 220 mg 08/06/20 09:00 08/06/20 08:56 Zinc Sulfate 220 Mg Cap PO 220 mg DAILY ALIYAH Administration - Exam General Appearance: ill appearing Heart: RRR, no gallops, no rubs, normal peripheral pulses Respiratory: no wheezes, rales, rhonchi, tachypneic Gastrointestinal: soft, non-tender, non-distended, normal bowel sounds, no guarding, no rigidity Extremities: no cyanosis, no clubbing, no edema Extremities - other findings: No calf tenderness Skin: normal turgor, no lesions, no rashes Neurological: no new deficit Psychiatric: normal affect, A&O x 3 Hosp A/P - Plan Acute hypoxic respiratory failure due to COVID-19 pneumonia Diabetes mellitus type 2uncontrolled Atrial fibrillation on anticoagulation Morbid obesity BMI 49.3 Hypertension Obesity hypoventilation Chronic diastolic heart failure Hyperlipidemia Benign prostatic hypertrophy COPD Penicillin allergy Plan: Continue O2 supplementation. Continue remdesivir with steroids. Increase Lantus to 20 units twice daily. Continue sliding scale. Continue other medications as above. Wean O2 as tolerated. A.m. labs. Monitor inflammatory markers
[2020-08-06] MEDS: Atorvastatin Calcium 40 MG TAB PO SCH (23:58)
[2020-08-06] MEDS: Cholecalciferol 1,000 UNITS (25 MCG) TAB PO SCH (23:58)
[2020-08-07] MEDS: Albuterol 200 PUFF (6.7GM INHALER) INH SCH ×4 (02:45→20:17)
[2020-08-07 04:18] LABS: #Lymphocytes 1.2 thou/uL (1.20-3.40); #Monocytes 0.5 thou/uL (0.11-0.59); #Neutrophils 9.7 thou/uL (1.40-6.50); %Eosinophils 0.1 % (0.0-10.0); %Lymphocytes 10.2 % (21.0-51.0); %Neutrophils 85.8 % (42.0-75.0); Mean Corpuscular HGB CONC 31.8 g/dL (32.0-36.0); Mean Corpuscular Hemoglobin 28.6 pg (27.0-31.0); Mean Corpuscular Volume 90.1 fL (78.0-98.0); Mean Platelet Volume 10.5 fL (7.4-10.4); Platelet Count 154 thou/uL (130-400); Red Blood Cell (RBC) Count 4.54 mill/uL (4.70-6.10); White Blood Cell (WBC) Count 11.3 thou/uL (4.8-10.8)
[2020-08-07 04:41] LABS: ALT (SGPT) 22 U/L (8-55); AST (SGOT) 22 U/L (5-34); Albumin 3.1 g/dL (3.4-4.8); Alkaline Phosphatase 64 U/L (40-110); Anion Gap 16 mmol/L (10-20); BUN (Urea Nitrogen) 21 mg/dL (8.4-25.7); Bilirubin, Total 0.3 mg/dL (0.2-1.2); Calc. Creatinine Clearance 104 mL/min (70-130); Calcium 8.5 mg/dL (7.8-10.44); Carbon Dioxide 25 mmol/L (23-31); Chloride 101 mmol/L (98-107); Globulin 3.1 g/dL (2.4-3.5); Glucose 536 mg/dL (83-110); Phosphorus 3.1 mg/dL (2.3-4.7); Potassium 4.6 mmol/L (3.5-5.1); Protein, Total 6.2 g/dL (5.8-8.1); Sodium 137 mmol/L (136-145)
[2020-08-07] MEDS: Dexamethasone 4 mg/ml Vial SLOW IVP SCH ×2 (06:02→09:55)
[2020-08-07] MEDS: Mometasone 200 MCG/Formoterol 5 MCG 120 PUFF INHALER INH SCH ×2 (06:03→20:17)
[2020-08-07] MEDS: HumaLOG 300 UNITS/3 ML VIAL SC PRN ×4 (06:12→18:01)
[2020-08-07] MEDS: Ascorbic Acid 500 mg Chewable Tablet PO SCH (09:31)
[2020-08-07] MEDS: Allopurinol 100 MG TAB PO SCH (09:31)
[2020-08-07] MEDS: Zinc Sulfate 220 MG CAP PO SCH (09:31)
[2020-08-07] MEDS: Tamsulosin HCl 0.4 MG CAP PO SCH (09:31)
[2020-08-07] MEDS: Apixaban 5 MG TAB PO SCH ×2 (09:31→20:14)
[2020-08-07] MEDS: Saccharomyces boulardii 250 MG CAP PO SCH ×2 (09:31→20:14)
[2020-08-07] MEDS: Famotidine 20 MG TAB PO SCH ×2 (09:31→20:14)
[2020-08-07] MEDS: Amlodipine 10 MG TAB PO SCH (09:31)
[2020-08-07] MEDS: Insulin Glargine 20 UNITS in Pre-Filled Syringe 1 EACH SC SCH (09:32)
[2020-08-07] MEDS: Carvedilol 25 MG TAB PO SCH ×2 (09:34→17:59)
--- NOTE | 2020-08-07 09:52 | PRG ---
DATE OF SERVICE: 08/07/2020 SUBJECTIVE: The patient feels okay, had no complaints. OBJECTIVE: VITAL SIGNS: Temperature 97.5, pulse 50, blood pressure 165/71, and O2 saturation 97% on 5 L. HEENT: Unremarkable. NECK: No JVD. LUNGS: Clear anteriorly. CARDIAC: S1 and S2. Regular. ABDOMEN: Soft. EXTREMITIES: Edematous. LABORATORY DATA: White blood cell count 11.3, hematocrit 40, and platelet count 154. D-dimer 0.4. Sodium 137, potassium 4.6, chloride 101, CO2 of 25, BUN 21, creatinine 1.2, and glucose 536. Ferritin level is 471. ASSESSMENT: 1. COVID infection. 2. Obesity. 3. Diabetes mellitus. PLAN: 1. I think most of his issue may be related to diastolic heart failure and COPD and not necessarily from his COVID situation. Given his severe hyperglycemia, I would support lowering his steroid dose. Continue anticoagulation. 2. He is stable for transfer to telemetry. Job ID: [id number]
[2020-08-07] MEDS ORDERED: Insulin Glargine 15 UNITS in Pre-Filled Syringe 1 EACH SC SCH (12:00)
[2020-08-07] MEDS: REMDESIVIR (EUA) 100 MG in Sodium Chloride 0.9% 250 ML 230 ML IV SCH (17:59)
[2020-08-07] MEDS: Atorvastatin Calcium 40 MG TAB PO SCH (20:14)
[2020-08-07] MEDS: Cholecalciferol 1,000 UNITS (25 MCG) TAB PO SCH (20:15)
[2020-08-07] MEDS: Insulin Glargine 30 UNITS in Pre-Filled Syringe 1 EACH SC SCH (20:15)
--- NOTE | 2020-08-07 21:35 | PDOC.HOSPP ---
- Subjective Encounter Date: 08/07/20 Encounter Time: 11:00 Subjective: Patient seen and examined for respiratory failure due to COVID 19. Shortness of breath improving. Sitting on the chair. Mild dry cough. - Objective Vital Signs & Weight: Weight Weight 334 lb 1 oz Most Recent Monitor Data Heart Rate from ECG 58 NIBP 151/91 NIBP BP-Mean 111 Respiration from ECG 23 SpO2 93 I&O: 08/06/20 08/07/20 08/08/20 06:59 06:59 06:59 Intake Total 2958 1300 450 Output Total 1020 1650 500 Balance 1938 -350 -50 Result Diagrams: 08/07/20 04:00 08/07/20 04:00 Additional Labs: Accuchecks 08/07/20 08/07/20 08/07/20 20:22 17:31 09:45 POC Glucose 363 H 325 H 404 H 08/07/20 08/07/20 06:06 00:04 POC Glucose 445 H 305 H Abnormal Lab Results - Last 48 hrs 08/06/20 04:07: Sodium 135 L, Albumin 3.1 L, Albumin/Globulin Ratio 1.0 L 08/06/20 04:07: RBC 4.47 L, Hgb 12.5 L, Hct 40.5 L, MCHC 30.9 L, MPV 10.5 H, Neutrophils % 82.9 H, Lymphocytes % 11.9 L, Neutrophils # 7.3 H, Lymphocytes # 1.1 L 08/06/20 04:07: C-Reactive Protein 12.61 H 08/06/20 04:07: Ferritin 621.22 H 08/07/20 04:00: C-Reactive Protein 7.30 H, Albumin 3.1 L, Albumin/Globulin Ratio 1.0 L 08/07/20 04:00: Ferritin 471.88 H 08/07/20 04:00: WBC 11.3 H, RBC 4.54 L, Hgb 13.0 L, Hct 40.9 L, MCHC 31.8 L, MPV 10.5 H, Neutrophils % 85.8 H, Lymphocytes % 10.2 L, Neutrophils # 9.7 H Microbiology - Entire Visit 08/05/20 04:25 Stool C. difficile GDH Antigen & Toxins - Final Radiology Reviewed by me: No EKG Reviewed by me: Yes (Sinus rhythm on telemetry) Hospitalist ROS - Review of Systems Constitutional: reports: weakness Gastrointestinal: denies: nausea, vomiting, abdominal pain, diarrhea, constipation, melena, hematochezia, other Genitourinary: denies: dysuria, frequency, incontinence, hematuria, retention, other - Medication Medications: Active Medications Generic Name Dose Route Start Last Admin Trade Name Freq PRN Reason Stop Dose Admin Albuterol Sulfate 2 puff 08/05/20 13:00 08/07/20 20:17 Albuterol 200 Puff (6.7gm Inhaler) INH 2 inh [id number] ALIYAH Administration Allopurinol 100 mg 08/05/20 09:00 08/07/20 09:31 Allopurinol 100 Mg Tab PO 100 mg DAILY ALIYAH Administration Amlodipine Besylate 10 mg 08/05/20 09:00 08/07/20 09:31 Amlodipine 10 Mg Tab PO 10 mg DAILY ALIYAH Administration Apixaban 5 mg 08/05/20 09:00 08/07/20 20:14 Apixaban 5 Mg Tab PO 5 mg BID ALIYAH Administration Ascorbic Acid 1,000 mg 08/06/20 09:00 08/07/20 09:31 Ascorbic Acid 500 Mg Chewable Tablet PO 1,000 mg DAILY ALIYAH Administration Atorvastatin Calcium 40 mg 08/05/20 21:00 08/07/20 20:14 Atorvastatin Calcium 40 Mg Tab PO 40 mg HS ALIYAH Administration Carvedilol 25 mg 08/05/20 08:00 08/07/20 17:59 Carvedilol 25 Mg Tab PO 25 mg BID-WM ALIYAH Administration Cholecalciferol 5,000 units 08/05/20 21:00 08/07/20 20:15 Cholecalciferol 1,000 Units (25 Mcg) Tab PO 5,000 units HS ALIYAH Administration Dexamethasone 2 mg 08/07/20 10:00 08/07/20 09:55 Dexamethasone 4 Mg/Ml Vial SLOW IVP 2 mg Q24HR ALIYAH Administration Famotidine 20 mg 08/05/20 09:00 08/07/20 20:14 Famotidine 20 Mg Tab PO 20 mg BID ALIYAH Administration Remdesivir 100 mg/ Sodium 250 mls @ 250 mls/hr 08/06/20 18:00 08/07/20 17:59 Chloride IV 08/09/20 18:59 250 mls 1800 ALIYAH Administration Insulin Glargine 30 units/ 0.3 mls @ 0 mls/hr 08/07/20 21:00 08/07/20 20:15 Miscellaneous Medication SC 0.3 mls HS ALIYAH Administration Insulin Human Lispro 0 units 08/05/20 12:18 08/07/20 18:01 Humalog 300 Units/3 Ml Vial SC 11 unit .AGGRESSIVE SLIDING PRN Administration Aggressive Correctional Scale Insulin Human Lispro 0 units 08/05/20 12:18 08/05/20 21:21 Humalog 300 Units/3 Ml Vial SC 5 unit .BEDTIME SLIDING SC PRN Administration Bedtime Correctional Scale Loratadine 10 mg 08/05/20 12:16 08/07/20 09:52 Loratadine 10 Mg Tab PO 10 mg DAILYPRN PRN Administration Sinus Symptoms Mometasone Furoate/Formoterol Fumar 1 puff 08/05/20 18:30 08/07/20 20:17 Mometasone 200 Mcg/Formoterol 5 Mcg 120 Puff Inhaler INH 1 puff BID-RT ALIYAH Administration Nystatin 0 gm 08/05/20 15:14 08/05/20 16:04 Nystatin Powder 15 Gm Bot TOP 1 applic BIDPRN PRN Administration Rash/Topical Irritation Saccharomyces Boulardii 250 mg 08/05/20 09:00 08/07/20 20:14 Saccharomyces Boulardii 250 Mg Cap PO 250 mg BID ALIYAH Administration Sodium Chloride 10 ml 08/05/20 09:00 08/07/20 20:16 Flush - Normal Saline 10 Ml Syringe IVF 10 ml Q12HR ALIYAH Administration Tamsulosin HCl 0.4 mg 08/05/20 09:00 08/07/20 09:31 Tamsulosin Hcl 0.4 Mg Cap PO 0.4 mg DAILY ALIYAH Administration Zinc Sulfate 220 mg 08/06/20 09:00 08/07/20 09:31 Zinc Sulfate 220 Mg Cap PO 220 mg DAILY ALIYAH Administration - Exam General Appearance: ill appearing Neck: supple, no JVD Heart: RRR, no gallops Respiratory: rales, rhonchi Gastrointestinal: soft, non-tender, no guarding Extremities: no cyanosis Neurological: no new deficit Hosp A/P - Plan Acute hypoxic respiratory failure due to COVID-19 pneumonia Diabetes mellitus type 2uncontrolled Atrial fibrillation on anticoagulation Morbid obesity BMI 49.3 Hypertension Obesity hypoventilation syndrome Chronic diastolic heart failure Hyperlipidemia Benign prostatic hypertrophy COPD Penicillin allergy Plan: Continue IMCU monitoring. Continue O2 supplementation. Continue IV dexamethas onedose reduced due to severe hyperglycemia. Continue Remdesivir per protocol. Continue anticoagulation. Inflammatory markers improving. Continue other medications as above.
[2020-08-08] MEDS: Albuterol 200 PUFF (6.7GM INHALER) INH SCH ×3 (03:01→11:31)
[2020-08-08] MEDS: Mometasone 200 MCG/Formoterol 5 MCG 120 PUFF INHALER INH SCH ×2 (05:37→18:25)
[2020-08-08 06:08] LABS: ALT (SGPT) 20 U/L (8-55); AST (SGOT) 15 U/L (5-34); Albumin 3.1 g/dL (3.4-4.8); Alkaline Phosphatase 71 U/L (40-110); Anion Gap 11 mmol/L (10-20); BUN (Urea Nitrogen) 18 mg/dL (8.4-25.7); Bilirubin, Total 0.4 mg/dL (0.2-1.2); Calc. Creatinine Clearance 132 mL/min (70-130); Calcium 8.6 mg/dL (7.8-10.44); Carbon Dioxide 32 mmol/L (23-31); Chloride 98 mmol/L (98-107); Globulin 3.1 g/dL (2.4-3.5); Glucose 270 mg/dL (83-110); Protein, Total 6.2 g/dL (5.8-8.1); Sodium 137 mmol/L (136-145)
[2020-08-08] MEDS: HumaLOG 300 UNITS/3 ML VIAL SC PRN ×3 (06:29→21:19)
[2020-08-08 07:11] LABS: #Monocytes 0.8 thou/uL (0.11-0.59); #Neutrophils 8.6 thou/uL (1.40-6.50); %Basophils 0.1 % (0.0-1.0); %Eosinophils 0.1 % (0.0-10.0); %Lymphocytes 9.5 % (21.0-51.0); %Monocytes 7.5 % (0.0-10.0); %Neutrophils 82.8 % (42.0-75.0); Hemoglobin 13.3 g/dL (14.0-18.0); Mean Corpuscular HGB CONC 30.6 g/dL (32.0-36.0); Mean Corpuscular Hemoglobin 27.8 pg (27.0-31.0); Mean Platelet Volume 10.6 fL (7.4-10.4); Platelet Count 172 thou/uL (130-400); RBC Distribution Width 12.9 % (11.5-14.5); Red Blood Cell (RBC) Count 4.78 mill/uL (4.70-6.10); White Blood Cell (WBC) Count 11.3 thou/uL (4.8-10.8)
[2020-08-08] MEDS: Amlodipine 10 MG TAB PO SCH ×2 (10:27→10:29)
[2020-08-08] MEDS: Allopurinol 100 MG TAB PO SCH (10:27)
[2020-08-08] MEDS: Apixaban 5 MG TAB PO SCH ×2 (10:27→21:20)
[2020-08-08] MEDS: Ascorbic Acid 500 mg Chewable Tablet PO SCH (10:27)
[2020-08-08] MEDS: Carvedilol 25 MG TAB PO SCH ×2 (10:27→18:25)
[2020-08-08] MEDS: Insulin Glargine 30 UNITS in Pre-Filled Syringe 1 EACH SC SCH ×2 (10:28→21:19)
[2020-08-08] MEDS: Saccharomyces boulardii 250 MG CAP PO SCH ×2 (10:28→21:20)
[2020-08-08] MEDS: Famotidine 20 MG TAB PO SCH ×2 (10:28→21:20)
[2020-08-08] MEDS: Dexamethasone 4 mg/ml Vial SLOW IVP SCH (10:29)
[2020-08-08] MEDS: Tamsulosin HCl 0.4 MG CAP PO SCH (10:29)
[2020-08-08] MEDS: Zinc Sulfate 220 MG CAP PO SCH (10:29)
--- NOTE | 2020-08-08 17:40 | PDOC.HOSPP ---
- Subjective Encounter Date: 08/08/20 Encounter Time: 10:30 Subjective: Patient seen and examined for respiratory failure due to COVID-19. Denies worsening of shortness of breath. Mild dry cough. Overnight events noted. - Objective Vital Signs & Weight: Vital Signs (12 hours) Temp Pulse Resp BP Pulse Ox 08/08/20 16:31 98.1 F 82 24 H 159/86 H 97 08/08/20 12:04 98.2 F 97 20 151/80 H 95 08/08/20 11:43 98.1 F 90 26 H 151/86 H 97 08/08/20 10:53 99.5 F 93 18 97/63 100 08/08/20 10:29 69 08/08/20 10:27 69 08/08/20 09:55 98.0 F 100 24 H 134/101 H 97 Weight Weight 334 lb 1 oz Most Recent Monitor Data Heart Rate from ECG 50 NIBP 159/78 NIBP BP-Mean 105 Respiration from ECG 32 SpO2 93 I&O: 08/07/20 08/08/20 08/09/20 06:59 06:59 06:59 Intake Total 1300 470 Output Total 1650 1200 Balance -350 -730 Result Diagrams: 08/08/20 05:19 08/08/20 05:19 Additional Labs: Accuchecks 08/08/20 08/08/20 08/08/20 17:17 12:02 07:43 POC Glucose 371 H 317 H 266 H 08/07/20 08/07/20 08/07/20 20:22 17:31 12:14 POC Glucose 363 H 325 H 379 H EKG Reviewed by me: Yes (Atrial fibrillation on telemetry) Hospitalist ROS - Review of Systems Cardiovascular: denies: chest pain, palpitations, orthopnea, paroxysmal noc. dyspnea, edema, light headedness, other Gastrointestinal: denies: nausea, vomiting, abdominal pain, diarrhea, constipation, melena, hematochezia, other - Medication Medications: Active Medications Generic Name Dose Route Start Last Admin Trade Name Freq PRN Reason Stop Dose Admin Albuterol Sulfate 2 puff 08/05/20 13:00 08/08/20 11:31 Albuterol 200 Puff (6.7gm Inhaler) INH 2 puff [id number] ALIYAH Administration Allopurinol 100 mg 08/05/20 09:00 08/08/20 10:27 Allopurinol 100 Mg Tab PO 100 mg DAILY ALIYAH Administration Amlodipine Besylate 10 mg 08/05/20 09:00 08/08/20 10:29 Amlodipine 10 Mg Tab PO 10 mg DAILY ALIYAH Administration Apixaban 5 mg 08/05/20 09:00 08/08/20 10:27 Apixaban 5 Mg Tab PO 5 mg BID ALIYAH Administration Ascorbic Acid 1,000 mg 08/06/20 09:00 08/08/20 10:27 Ascorbic Acid 500 Mg Chewable Tablet PO 1,000 mg DAILY ALIYAH Administration Atorvastatin Calcium 40 mg 08/05/20 21:00 08/07/20 20:14 Atorvastatin Calcium 40 Mg Tab PO 40 mg HS ALIYAH Administration Carvedilol 25 mg 08/05/20 08:00 08/08/20 10:27 Carvedilol 25 Mg Tab PO 25 mg BID-WM ALIYAH Administration Cholecalciferol 5,000 units 08/05/20 21:00 08/07/20 20:15 Cholecalciferol 1,000 Units (25 Mcg) Tab PO 5,000 units HS ALIYAH Administration Dexamethasone 2 mg 08/07/20 10:00 08/08/20 10:29 Dexamethasone 4 Mg/Ml Vial SLOW IVP 2 mg Q24HR ALIYAH Administration Famotidine 20 mg 08/05/20 09:00 08/08/20 10:28 Famotidine 20 Mg Tab PO 20 mg BID ALIYAH Administration Remdesivir 100 mg/ Sodium 250 mls @ 250 mls/hr 08/06/20 18:00 08/07/20 17:59 Chloride IV 08/09/20 18:59 250 mls 1800 ALIYAH Administration Insulin Glargine 30 units/ 0.3 mls @ 0 mls/hr 08/08/20 09:00 08/08/20 10:28 Miscellaneous Medication SC 0.3 mls QAM ALIYAH Administration Insulin Glargine 30 units/ 0.3 mls @ 0 mls/hr 08/07/20 21:00 08/07/20 20:15 Miscellaneous Medication SC 0.3 mls HS ALIYAH Administration Insulin Human Lispro 0 units 08/05/20 12:18 08/08/20 10:30 Humalog 300 Units/3 Ml Vial SC 9 unit .AGGRESSIVE SLIDING PRN Administration Aggressive Correctional Scale Insulin Human Lispro 0 units 08/05/20 12:18 08/05/20 21:21 Humalog 300 Units/3 Ml Vial SC 5 unit .BEDTIME SLIDING SC PRN Administration Bedtime Correctional Scale Loratadine 10 mg 08/05/20 12:16 08/07/20 09:52 Loratadine 10 Mg Tab PO 10 mg DAILYPRN PRN Administration Sinus Symptoms Mometasone Furoate/Formoterol Fumar 1 puff 08/05/20 18:30 08/08/20 05:37 Mometasone 200 Mcg/Formoterol 5 Mcg 120 Puff Inhaler INH 1 puff BID-RT ALIYAH Administration Nystatin 0 gm 08/05/20 15:14 08/05/20 16:04 Nystatin Powder 15 Gm Bot TOP 1 applic BIDPRN PRN Administration Rash/Topical Irritation Saccharomyces Boulardii 250 mg 08/05/20 09:00 08/08/20 10:28 Saccharomyces Boulardii 250 Mg Cap PO 250 mg BID ALIYAH Administration Sodium Chloride 10 ml 08/05/20 09:00 08/08/20 14:31 Flush - Normal Saline 10 Ml Syringe IVF 10 ml Q12HR ALIYAH Administration Tamsulosin HCl 0.4 mg 08/05/20 09:00 08/08/20 10:29 Tamsulosin Hcl 0.4 Mg Cap PO 0.4 mg DAILY ALIYAH Administration Zinc Sulfate 220 mg 08/06/20 09:00 08/08/20 10:29 Zinc Sulfate 220 Mg Cap PO 220 mg DAILY ALIYAH Administration - Exam General Appearance: ill appearing Neck: supple, no JVD Hosp A/P - Plan Acute hypoxic respiratory failure due to COVID-19 pneumonia Diabetes mellitus type 2uncontrolled Atrial fibrillation with RVRon anticoagulation Morbid obesity BMI 49.3 Hypertension Obesity hypoventilation syndrome Chronic diastolic heart failure Hyperlipidemia Benign prostatic hypertrophy COPD Penicillin allergy Plan: Continue Lantus 30 units twice daily due to uncontrolled hyperglycemia. Continue sliding scale. Continue low-dose dexamethasone with remdesivir. Continue isolation. Continue inhalers with remdesivir. Continue an ticoagulation for atrial fibrillation. Consult cardiology due to atrial fibrillation with rapid ventricular response. A.m. labs. Patient is refusing alf facility placement. Will arrange for home health care. Continue therapy.
[2020-08-08] MEDS: REMDESIVIR (EUA) 100 MG in Sodium Chloride 0.9% 250 ML 230 ML IV SCH (18:25)
[2020-08-08] MEDS: Cholecalciferol 1,000 UNITS (25 MCG) TAB PO SCH (21:20)
[2020-08-08] MEDS: Atorvastatin Calcium 40 MG TAB PO SCH (21:20)
[2020-08-09 05:30] LABS: #Lymphocytes 1.5 thou/uL (1.20-3.40); #Monocytes 0.8 thou/uL (0.11-0.59); #Neutrophils 10.5 thou/uL (1.40-6.50); %Basophils 0.1 % (0.0-1.0); %Eosinophils 0.2 % (0.0-10.0); %Lymphocytes 11.5 % (21.0-51.0); %Monocytes 6.4 % (0.0-10.0); %Neutrophils 81.8 % (42.0-75.0); Hemoglobin 14.3 g/dL (14.0-18.0); Mean Corpuscular HGB CONC 32.7 g/dL (32.0-36.0); Mean Corpuscular Hemoglobin 29.2 pg (27.0-31.0); Mean Corpuscular Volume 89.5 fL (78.0-98.0); Mean Platelet Volume 10.1 fL (7.4-10.4); Platelet Count 192 thou/uL (130-400); RBC Distribution Width 12.8 % (11.5-14.5); Red Blood Cell (RBC) Count 4.88 mill/uL (4.70-6.10); White Blood Cell (WBC) Count 12.9 thou/uL (4.8-10.8)
[2020-08-09 05:54] LABS: ALT (SGPT) 21 U/L (8-55); AST (SGOT) 17 U/L (5-34); Alkaline Phosphatase 74 U/L (40-110); Anion Gap 13 mmol/L (10-20); BUN (Urea Nitrogen) 17 mg/dL (8.4-25.7); Bilirubin, Total 0.4 mg/dL (0.2-1.2); CRP (Inflammatory) 2.97 mg/dL (= or < 0.5); Calc. Creatinine Clearance 142 mL/min (70-130); Calcium 8.7 mg/dL (7.8-10.44); Carbon Dioxide 30 mmol/L (23-31); Chloride 98 mmol/L (98-107); Globulin 3.3 g/dL (2.4-3.5); Glucose 237 mg/dL (83-110); Potassium 4.1 mmol/L (3.5-5.1); Protein, Total 6.3 g/dL (5.8-8.1); Sodium 137 mmol/L (136-145)
[2020-08-09] MEDS: Albuterol 200 PUFF (6.7GM INHALER) INH SCH ×5 (08:36→23:34)
[2020-08-09] MEDS: Carvedilol 25 MG TAB PO SCH ×2 (08:37→17:31)
[2020-08-09] MEDS: Apixaban 5 MG TAB PO SCH ×2 (08:37→20:35)
[2020-08-09] MEDS: Mometasone 200 MCG/Formoterol 5 MCG 120 PUFF INHALER INH SCH ×2 (08:37→18:35)
[2020-08-09] MEDS: Allopurinol 100 MG TAB PO SCH (08:37)
[2020-08-09] MEDS: Famotidine 20 MG TAB PO SCH ×2 (08:38→20:35)
[2020-08-09] MEDS: Ascorbic Acid 500 mg Chewable Tablet PO SCH (08:38)
[2020-08-09] MEDS: Saccharomyces boulardii 250 MG CAP PO SCH ×2 (08:38→20:35)
[2020-08-09] MEDS: Tamsulosin HCl 0.4 MG CAP PO SCH (08:39)
[2020-08-09] MEDS: Zinc Sulfate 220 MG CAP PO SCH (08:39)
[2020-08-09] MEDS: Amlodipine 10 MG TAB PO SCH (08:40)
[2020-08-09] MEDS: Dexamethasone 4 mg/ml Vial SLOW IVP SCH (08:41)
[2020-08-09] MEDS: Insulin Glargine 30 UNITS in Pre-Filled Syringe 1 EACH SC SCH ×2 (09:27→20:33)
[2020-08-09] MEDS: HumaLOG 300 UNITS/3 ML VIAL SC PRN ×4 (13:11→23:34)
[2020-08-09 15:42] LABS: Actual Bicarbonate (HCO3a) 29.2 mEq/L (22-28); CO2 Tension 45.8 mmHg (35.0-45.0); Calcium, Ionized (arterial) 1.19 mmol/L (1.12-1.30); Carboxyhemoglobin (COHb) 0.8 gm% (0.0-3.0); Hemoglobin (Hb) 15.1 g/dL (14.0-18.0); O2 Tension (PaO2), arterial 59.6 mmHg (> 60.0); Potassium - ABG Lab 4.12 mmol/L (3.70-5.30); pH, Arterial 7.42 (7.35-7.45)
[2020-08-09 15:43] LABS: Puncture Site LRA
--- NOTE | 2020-08-09 17:15 | RAD ---
XR Chest 1 View Portable History: Hypoxia Comparison: Radiograph July 23, 2020 Findings: Mild increased peripheral and perihilar opacities. Heart size mildly enlarged. No pneumotho rax. No effusion. No acute osseous abnormality. Impression: Commonly reported imaging findings of COVID-19 pneumonia.
[2020-08-09] MEDS: REMDESIVIR (EUA) 100 MG in Sodium Chloride 0.9% 250 ML 230 ML IV SCH (17:24)
--- NOTE | 2020-08-09 17:25 | PDOC.HOSPP ---
- Subjective Encounter Date: 08/09/20 Encounter Time: 14:00 Subjective: Patient seen and examined for respiratory failure due to pneumonia. Short of breath on minimal exertion. Has cough along with wheezing. - Objective Vital Signs & Weight: Vital Signs (12 hours) Temp Pulse Resp BP Pulse Ox 08/09/20 12:02 98.1 F 86 32 H 114/80 98 08/09/20 09:10 96.0 F L 88 20 128/77 94 L 08/09/20 08:40 81 08/09/20 08:00 94 L Weight Weight 334 lb 1 oz Most Recent Monitor Data Heart Rate from ECG 50 NIBP 159/78 NIBP BP-Mean 105 Respiration from ECG 32 SpO2 93 I&O: 08/08/20 08/09/20 08/10/20 06:59 06:59 06:59 Intake Total 470 1591.5 50 Output Total 1200 1510 Balance -730 81.5 50 Result Diagrams: 08/09/20 05:15 08/09/20 05:15 Additional Labs: Accuchecks 08/09/20 08/09/20 08/09/20 16:31 11:59 01:37 POC Glucose 281 H 193 H 298 H 08/08/20 08/08/20 08/07/20 21:04 17:17 12:14 POC Glucose 428 H 371 H 379 H Abnormal Lab Results - Last 48 hrs 08/08/20 05:19: Carbon Dioxide 32 H, Albumin 3.1 L, Albumin/Globulin Ratio 1.0 L 08/08/20 05:19: WBC 11.3 H, Hgb 13.3 L, MCHC 30.6 L, MPV 10.6 H, Neutrophils % 82.8 H, Lymphocytes % 9.5 L, Neutrophils # 8.6 H, Lymphocytes # 1.0 L, Monocytes # 0.8 H 08/09/20 05:15: C-Reactive Protein 2.97 H, Albumin 3.0 L, Albumin/Globulin Ratio 0.9 L 08/09/20 05:15: WBC 12.9 H, Neutrophils % 81.8 H, Lymphocytes % 11.5 L, Neutrophils # 10.5 H, Monocytes # 0.8 H 08/09/20 05:15: D-Dimer 1.39 H 08/09/20 15:35: Bicarbonate Actual 29.2 H, ABG pCO2 45.8 H, ABG pO2 59.6 L*, ABG O2 Sat (Measured) 90.7 L, ABG Base Excess 4.0 H, ABG Oxyhemoglobin 89.7 L, ABG Deoxyhemoglobin 9.2 H, Sodium 134 L Microbiology - Entire Visit 08/05/20 04:25 Stool C. difficile GDH Antigen & Toxins - Final Radiology Reviewed by me: Yes (Bilateral infiltrates on chest x-ray) EKG Reviewed by me: Yes (A. fib on telemetry) Hospitalist ROS - Review of Systems Cardiovascular: denies: chest pain, palpitations, orthopnea, paroxysmal noc. dyspnea, edema, light headedness, other Gastrointestinal: denies: nausea, vomiting, abdominal pain, diarrhea, constipation, melena, hematochezia, other - Medication Medications: Active Medications Generic Name Dose Route Start Last Admin Trade Name Freq PRN Reason Stop Dose Admin Albuterol Sulfate 2 puff 08/05/20 13:00 08/09/20 12:35 Albuterol 200 Puff (6.7gm Inhaler) INH 2 puff [id number] ALIYAH Administration Allopurinol 100 mg 08/05/20 09:00 08/09/20 08:37 Allopurinol 100 Mg Tab PO 100 mg DAILY ALIYAH Administration Amlodipine Besylate 10 mg 08/05/20 09:00 08/09/20 08:40 Amlodipine 10 Mg Tab PO 10 mg DAILY ALIYAH Administration Apixaban 5 mg 08/05/20 09:00 08/09/20 08:37 Apixaban 5 Mg Tab PO 5 mg BID ALIYAH Administration Ascorbic Acid 1,000 mg 08/06/20 09:00 08/09/20 08:38 Ascorbic Acid 500 Mg Chewable Tablet PO 1,000 mg DAILY ALIYAH Administration Atorvastatin Calcium 40 mg 08/05/20 21:00 08/08/20 21:20 Atorvastatin Calcium 40 Mg Tab PO 40 mg HS ALIYAH Administration Carvedilol 25 mg 08/05/20 08:00 08/09/20 08:37 Carvedilol 25 Mg Tab PO 25 mg BID-WM ALIYAH Administration Cholecalciferol 5,000 units 08/05/20 21:00 08/08/20 21:20 Cholecalciferol 1,000 Units (25 Mcg) Tab PO 5,000 units HS ALIYAH Administration Dexamethasone 2 mg 08/07/20 10:00 08/09/20 08:41 Dexamethasone 4 Mg/Ml Vial SLOW IVP 2 mg Q24HR ALIYAH Administration Famotidine 20 mg 08/05/20 09:00 08/09/20 08:38 Famotidine 20 Mg Tab PO 20 mg BID ALIYAH Administration Remdesivir 100 mg/ Sodium 250 mls @ 250 mls/hr 08/06/20 18:00 08/08/20 18:25 Chloride IV 08/09/20 18:59 250 mls 1800 ALIYAH Administration Insulin Glargine 30 units/ 0.3 mls @ 0 mls/hr 08/08/20 09:00 08/09/20 09:27 Miscellaneous Medication SC 0.3 mls QAM ALIYAH Administration Insulin Glargine 30 units/ 0.3 mls @ 0 mls/hr 08/07/20 21:00 08/08/20 21:19 Miscellaneous Medication SC 0.3 mls HS ALIYAH Administration Insulin Human Lispro 0 units 08/05/20 12:18 08/09/20 13:11 Humalog 300 Units/3 Ml Vial SC 3 unit .AGGRESSIVE SLIDING PRN Administration Aggressive Correctional Scale Insulin Human Lispro 0 units 08/05/20 12:18 08/08/20 21:19 Humalog 300 Units/3 Ml Vial SC 5 unit .BEDTIME SLIDING SC PRN Administration Bedtime Correctional Scale Loratadine 10 mg 08/05/20 12:16 08/07/20 09:52 Loratadine 10 Mg Tab PO 10 mg DAILYPRN PRN Administration Sinus Symptoms Mometasone Furoate/Formoterol Fumar 1 puff 08/05/20 18:30 08/09/20 08:37 Mometasone 200 Mcg/Formoterol 5 Mcg 120 Puff Inhaler INH 1 puff BID-RT ALIYAH Administration Nystatin 0 gm 08/05/20 15:14 08/05/20 16:04 Nystatin Powder 15 Gm Bot TOP 1 applic BIDPRN PRN Administration Rash/Topical Irritation Ondansetron HCl 4 mg 08/05/20 04:23 08/09/20 12:05 Ondansetron Pf 4 Mg/2 Ml Vial IVP 4 mg Q6H PRN Administration Nausea/Vomiting use 1st Saccharomyces Boulardii 250 mg 08/05/20 09:00 08/09/20 08:38 Saccharomyces Boulardii 250 Mg Cap PO 250 mg BID ALIYAH Administration Sodium Chloride 10 ml 08/05/20 09:00 08/09/20 08:39 Flush - Normal Saline 10 Ml Syringe IVF 10 ml Q12HR ALIYAH Administration Sodium Chloride 10 ml 08/05/20 06:15 08/09/20 12:05 Flush - Normal Saline 10 Ml Syringe IVF 10 ml PRN PRN Administration Saline Flush Tamsulosin HCl 0.4 mg 08/05/20 09:00 08/09/20 08:39 Tamsulosin Hcl 0.4 Mg Cap PO 0.4 mg DAILY ALIYAH Administration Zinc Sulfate 220 mg 08/06/20 09:00 08/09/20 08:39 Zinc Sulfate 220 Mg Cap PO 220 mg DAILY ALIYAH Administration - Exam General Appearance: ill appearing Neck: supple, symmetric, no JVD, no thyromegaly Heart: RRR, no gallops, no rubs, normal peripheral pulses Respiratory: rales, rhonchi, tachypneic, wheezes Gastrointestinal: soft, non-distended, no guarding, no rigidity Extremities: no cyanosis, no clubbing Neurological: no new deficit Hosp A/P - Plan DVT proph w/lovenox Acute hypoxic respiratory failure due to COVID-19 pneumonia Diabetes mellitus type 2 Atrial fibrillationrate controlled on anticoagulation Morbid obesity BMI 49.3 Hypertension Obesity hypoventilation syndrome Chronic diastolic heart failure Hyperlipidemia Benign prostatic hypertrophy COPD Penicillin allergy Plan: Due to increased O2 requirement ABG and chest x-ray were done and reviewed. We will continue remdesivir along with dexamethasone. Continue albuterol. Add doxycycline and Dulera. Wean O2 as tolerated. High flow oxygen if O2 saturation worsens.. Heart rate controlled at this time. Continue anticoagulation.
--- NOTE | 2020-08-09 18:06 | CON ---
DATE OF CONSULTATION: 08/09/2020 REASON FOR CONSULTATION: Atrial fibrillation with RVR. PRIMARY CORPORATE TRAFFIC MANAGER: Believed to be Dr. Jj as we have seen him in the hospital before and I believe per patient report, he also has a online content coordinator that he sees in [place]. CONSULTING PHYSICIAN: Vern Castellanos MD HISTORY OF PRESENT ILLNESS: This is an 80-year-old male with past medical history of COPD, he is on home oxygen; type 2 diabetes; high blood pressure; congestive heart failure, admitted from the [facility] for hypoxia, shortness of breath, wheezing, and hyperglycemia. EMS found him to have a fever of 101.5 degrees Fahrenheit and blood sugar in 300s along with some wheezing with oxygen levels in the 80s. His magnesium was also found to be less than 0.6. He was also found to be positive for COVID-19 and diagnosed with COVID pneumonia. He was admitted to the IMCU unit and treated with IV antibiotics. Dr. Jj has seen the patient in the past during previous hospital admissions, but please note that he has been noncompliant with followup visits in the office. PAST MEDICAL HISTORY: Significant for, 1. COPD, on home oxygen. 2. Congestive heart failure. His echocardiogram in October 2019 showed ejection fraction of 55% to 60%, grade 1 diastolic dysfunction, mildly dilated left atrium with mild mitral regurgitation, tricuspid regurgitation, and aortic valve sclerosis with no significant stenosis. He also had a stress test in October 2019 that showed no evidence of ischemia. 3. He is also a type 2 insulin dependent diabetic. 4. He has a history of high blood pressure, high cholesterol levels, gout, atrial fibrillation in the past as well as BPH. SOCIAL HISTORY: He lives alone. He has a daughter who lives next door. He denies any tobacco, alcohol use, or illicit drug use. FAMILY HISTORY: No significant family history. ALLERGIES: HE IS ALLERGIC TO PENICILLIN. PAST SURGICAL HISTORY: Includes a hemorrhoid surgery. HOME MEDICATIONS: Upon admission include, 1. Omeprazole. 2. Allopurinol. 3. Tamsulosin. 4. Potassium chloride. 5. Lantus insulin. 6. Eliquis 5 mg twice daily. 7. Coreg 25 mg twice daily. 8. Norvasc 10 mg daily. 9. Atorvastatin 40 mg daily. REVIEW OF SYSTEMS: Relatively unremarkable except what is noted in the HPI. The nurse does report today that he did have one episode of vomiting and diarrhea. PHYSICAL EXAMINATION: Deferred due to COVID-19 positive. I did try to call the patient several times, but he did not answer his phone today. His most recent vital signs; blood pressure 114/80 and heart rate remains in the 80s. LABORATORY DATA: His most recent labs, his magnesium is back up to 2.0. Sodium 137, potassium 4.1, BUN 17, and creatinine 0.89. His glucose was 193 today. White blood cells are 12.9, hemoglobin 14.3, and hematocrit 43.7. IMPRESSION AND PLAN: 1. Atrial fibrillation with rapid ventricular response. He does have a history of this. Per telemetry records, his atrial fibrillation with rapid ventricular response lasted only a short period with heart rate in the 140s. He has been anticoagulated with Eliquis 5 mg twice a day for stroke prophylaxis. All of yesterday and today, he is now rate controlled in the 80s to 90s. He is also on Coreg 25 mg twice daily. We did expect this atrial fibrillation to come back due to his acute respiratory failure related to COVID pneumonia. We will continue with the current treatment at this time as long as he remains rate controlled in atrial fibrillation. 2. COVID pneumonia. He is on low dose dexamethasone with remdesivir and inhalers. We will leave the care for this to the primary care services. 3. Type 2 diabetes. He is on Lantus 30 units twice daily with sliding scale insulin. We will defer this treatment to the primary care service as well. It seems that the primary care services want him to go to alf facility, but the patient refused. So, we are trying to set the patient up with Home Health Services for discharge. We will continue to monitor the patient closely. Job ID: [id number] Records reviewed. Discussed pt and plan yesterday with the TETRYL NITRATOR OPERATOR. I agree with the A/P. At this time continue to contol the HR if he has further episosdes of Afib. with RVR. We will continue to follow with you. oanh [email or web address]
[2020-08-09] MEDS: Atorvastatin Calcium 40 MG TAB PO SCH (20:35)
[2020-08-09] MEDS: Cholecalciferol 1,000 UNITS (25 MCG) TAB PO SCH (20:35)
[2020-08-09] MEDS: Doxycycline 100 MG CAP PO SCH (20:35)
[2020-08-10] MEDS: HumaLOG 300 UNITS/3 ML VIAL SC PRN ×4 (04:06→20:47)
[2020-08-10 05:54] LABS: #Eosinphils 0.1 thou/uL (0.0-0.7); #Lymphocytes 1.6 thou/uL (1.20-3.40); #Monocytes 0.7 thou/uL (0.11-0.59); #Neutrophils 9.6 thou/uL (1.40-6.50); %Basophils 0.2 % (0.0-1.0); %Eosinophils 1.2 % (0.0-10.0); %Lymphocytes 13.3 % (21.0-51.0); %Monocytes 6.1 % (0.0-10.0); %Neutrophils 79.2 % (42.0-75.0); Hemoglobin 14.1 g/dL (14.0-18.0); Mean Corpuscular HGB CONC 31.6 g/dL (32.0-36.0); Mean Corpuscular Hemoglobin 28.3 pg (27.0-31.0); Mean Corpuscular Volume 89.7 fL (78.0-98.0); Mean Platelet Volume 10.5 fL (7.4-10.4); Platelet Count 215 thou/uL (130-400); RBC Distribution Width 12.9 % (11.5-14.5); Red Blood Cell (RBC) Count 4.98 mill/uL (4.70-6.10); White Blood Cell (WBC) Count 12.1 thou/uL (4.8-10.8)
[2020-08-10] MEDS: Mometasone 200 MCG/Formoterol 5 MCG 120 PUFF INHALER INH SCH ×2 (05:55→18:00)
[2020-08-10] MEDS: Albuterol 200 PUFF (6.7GM INHALER) INH SCH ×3 (05:55→18:00)
[2020-08-10 06:18] LABS: ALT (SGPT) 18 U/L (8-55); AST (SGOT) 12 U/L (5-34); Albumin 2.9 g/dL (3.4-4.8); Alkaline Phosphatase 75 U/L (40-110); Anion Gap 13 mmol/L (10-20); BUN (Urea Nitrogen) 18 mg/dL (8.4-25.7); Bilirubin, Total 0.5 mg/dL (0.2-1.2); Calc. Creatinine Clearance 122 mL/min (70-130); Calcium 8.5 mg/dL (7.8-10.44); Carbon Dioxide 30 mmol/L (23-31); Chloride 97 mmol/L (98-107); Globulin 3.2 g/dL (2.4-3.5); Glucose 253 mg/dL (83-110); Potassium 3.9 mmol/L (3.5-5.1); Protein, Total 6.1 g/dL (5.8-8.1); Sodium 136 mmol/L (136-145)
[2020-08-10] MEDS: Famotidine 20 MG TAB PO SCH ×2 (07:53→20:42)
[2020-08-10] MEDS: Carvedilol 25 MG TAB PO SCH ×2 (07:53→16:16)
[2020-08-10] MEDS: Apixaban 5 MG TAB PO SCH ×2 (07:53→20:42)
[2020-08-10] MEDS: Ascorbic Acid 500 mg Chewable Tablet PO SCH (07:53)
[2020-08-10] MEDS: Allopurinol 100 MG TAB PO SCH (07:53)
[2020-08-10] MEDS: Cyanocobalamin (Vitamin B-12) 1,000 MCG TAB PO SCH (07:53)
[2020-08-10] MEDS: Doxycycline 100 MG CAP PO SCH ×2 (07:53→20:42)
[2020-08-10] MEDS: Tamsulosin HCl 0.4 MG CAP PO SCH (07:54)
[2020-08-10] MEDS: Saccharomyces boulardii 250 MG CAP PO SCH ×2 (07:54→20:42)
[2020-08-10] MEDS: Zinc Sulfate 220 MG CAP PO SCH (07:54)
[2020-08-10] MEDS: Folic Acid 1 MG TAB PO SCH (07:54)
[2020-08-10] MEDS: Amlodipine 10 MG TAB PO SCH (07:56)
[2020-08-10] MEDS: Insulin Glargine 30 UNITS in Pre-Filled Syringe 1 EACH SC SCH (08:54)
[2020-08-10] MEDS: Dexamethasone 4 mg/ml Vial SLOW IVP SCH (08:55)
--- NOTE | 2020-08-10 14:06 | PQF ---
CLINICAL DOCUMENTATION CLARIFICATION FORM: * Dear Dr. Castellanos Date: 08/11/20 Please exercise your independent, professional judgment in responding to the clarification form. Clinical indicators are provided on the bottom of this form for your review. Please check appropriate box(es): [ ] Sepsis due to: [ ] Severe sepsis with associated acute organ dysfunction: [ ] Acute Respiratory Failure [ ] Acute Kidney injury w/o ATN [ ] Acute Kidney Injury w ATN [ ] Encephalopathy (metabolic) (septic) [ ] Disseminated Intravascular Coagulopathy (DIC) [ ] Hepatic Failure [ ] Additional/Other: please specify: [ ] Localized infection without sepsis [ ] SIRS due to non-infectious process (please specify etiology) [ ] with organ dysfunction [ ] without organ dysfunction [ ] Other diagnosis [ ] Unable to determine In addition, please specify: Present on Admission (POA): [ ] Yes [ ] No [ ] Unable to determine For continuity of documentation, please document condition throughout progress notes and discharge summary. Thank You. To be completed by CDI/Coding staff for physician review: CLINICAL INDICATORS - SIGNS / SYMPTOMS / LABS / RESULTS AND LOCATION IN MR RR 24-32 TEMP 101.5 PER EMS (SEE ER NOTE) CRP 08/10: 3.24 WBC 08/09: 12.9 RISK FACTORS / RESULTS AND LOCATION IN MR COVID 19 (PN 08/09-LADHA) PNEUMONIA (PN 08/09-LADHA) ACUTE RESPIRATORY FAILURE (PN 08/09-LADHA) TREATMENTS / RESULTS AND LOCATION IN MR VIBRAMYCIN (08/09-PRESENT) PULMONARY CONSULT 08/06 CDS Signature: Catrachita Green RN Phone #: [phone] Date: 08/11/20 This is a permanent part of the Medical Record [facility]
--- NOTE | 2020-08-10 19:58 | PDOC.HOSPP ---
- Subjective Encounter Date: 08/10/20 Encounter Time: 13:30 Subjective: Patient seen and examined for respiratory failure due to COVID-19 pneumonia. Short of breath on minimal exertion. Some dry cough. No chest pain, palpitations or syncope reported. - Objective Vital Signs & Weight: Vital Signs (12 hours) Temp Pulse Resp BP Pulse Ox 08/10/20 16:45 96.6 F L 79 26 H 138/96 H 93 L 08/10/20 11:35 97.6 F 87 24 H 140/91 H 93 L 08/10/20 08:18 96 F L 78 24 H 170/105 H 96 Weight Weight 332 lb 8 oz Most Recent Monitor Data Heart Rate from ECG 50 NIBP 159/78 NIBP BP-Mean 105 Respiration from ECG 32 SpO2 93 I&O: 08/09/20 08/10/20 08/11/20 06:59 06:59 06:59 Intake Total 1591.5 930 600 Output Total 1510 150 300 Balance 81.5 780 300 Result Diagrams: 08/10/20 05:07 08/10/20 05:07 Additional Labs: Accuchecks 08/10/20 08/10/20 08/09/20 11:37 04:12 23:29 POC Glucose 225 H 243 H 247 H 08/09/20 08/08/20 20:01 16:24 POC Glucose 367 H 374 H Abnormal Lab Results - Last 48 hrs 08/09/20 05:15: C-Reactive Protein 2.97 H, Albumin 3.0 L, Albumin/Globulin Ratio 0.9 L 08/09/20 05:15: WBC 12.9 H, Neutrophils % 81.8 H, Lymphocytes % 11.5 L, Neutrophils # 10.5 H, Monocytes # 0.8 H 08/09/20 05:15: D-Dimer 1.39 H 08/09/20 15:35: Bicarbonate Actual 29.2 H, ABG pCO2 45.8 H, ABG pO2 59.6 L*, ABG O2 Sat (Measured) 90.7 L, ABG Base Excess 4.0 H, ABG Oxyhemoglobin 89.7 L, ABG Deoxyhemoglobin 9.2 H, Sodium 134 L 08/10/20 05:07: Chloride 97 L, Albumin 2.9 L, Albumin/Globulin Ratio 0.9 L 08/10/20 05:07: WBC 12.1 H, MCHC 31.6 L, MPV 10.5 H, Neutrophils % 79.2 H, Lymphocytes % 13.3 L, Neutrophils # 9.6 H, Monocytes # 0.7 H 08/10/20 05:07: C-Reactive Protein 3.24 H 08/10/20 05:07: D-Dimer 1.69 H Microbiology - Entire Visit 08/05/20 04:25 Stool C. difficile GDH Antigen & Toxins - Final EKG Reviewed by me: Yes (Atrial fibrillation on telemetry) Hospitalist ROS - Review of Systems Cardiovascular: denies: chest pain, palpitations, orthopnea, paroxysmal noc. dyspnea, edema, light headedness, other Gastrointestinal: denies: nausea, vomiting, abdominal pain, diarrhea, constipation, melena, hematochezia, other - Medication Medications: Active Medications Generic Name Dose Route Start Last Admin Trade Name Freq PRN Reason Stop Dose Admin Albuterol Sulfate 2 puff 08/05/20 13:00 08/10/20 18:00 Albuterol 200 Puff (6.7gm Inhaler) INH 2 puff [id number] ALIYAH Administration Allopurinol 100 mg 08/05/20 09:00 08/10/20 07:53 Allopurinol 100 Mg Tab PO 100 mg DAILY ALIYAH Administration Amlodipine Besylate 10 mg 08/05/20 09:00 08/10/20 07:56 Amlodipine 10 Mg Tab PO 10 mg DAILY ALIYAH Administration Apixaban 5 mg 08/05/20 09:00 08/10/20 07:53 Apixaban 5 Mg Tab PO 5 mg BID ALIYAH Administration Ascorbic Acid 1,000 mg 08/06/20 09:00 08/10/20 07:53 Ascorbic Acid 500 Mg Chewable Tablet PO 1,000 mg DAILY ALIYAH Administration Atorvastatin Calcium 40 mg 08/05/20 21:00 08/09/20 20:35 Atorvastatin Calcium 40 Mg Tab PO 40 mg HS ALIYAH Administration Carvedilol 25 mg 08/05/20 08:00 08/10/20 16:16 Carvedilol 25 Mg Tab PO 25 mg BID-WM ALIYAH Administration Cholecalciferol 5,000 units 08/05/20 21:00 08/09/20 20:35 Cholecalciferol 1,000 Units (25 Mcg) Tab PO 5,000 units HS ALIYAH Administration Cyanocobalamin 1,000 mcg 08/10/20 09:00 08/10/20 07:53 Cyanocobalamin (Vitamin B-12) 1,000 Mcg Tab PO 1,000 mcg DAILY ALIYAH Administration Dexamethasone 2 mg 08/07/20 10:00 08/10/20 08:55 Dexamethasone 4 Mg/Ml Vial SLOW IVP 2 mg Q24HR ALIYAH Administration Doxycycline Hyclate 100 mg 08/09/20 21:00 08/10/20 07:53 Doxycycline 100 Mg Cap PO 100 mg BID ALIYAH Administration Famotidine 20 mg 08/05/20 09:00 08/10/20 07:53 Famotidine 20 Mg Tab PO 20 mg BID ALIYAH Administration Folic Acid 1 mg 08/10/20 09:00 08/10/20 07:54 Folic Acid 1 Mg Tab PO 1 mg DAILY ALIYAH Administration Insulin Glargine 30 units/ 0.3 mls @ 0 mls/hr 08/08/20 09:00 08/10/20 08:54 Miscellaneous Medication SC 0.3 mls QAM ALIYAH Administration Insulin Human Lispro 0 units 08/05/20 12:18 08/10/20 16:41 Humalog 300 Units/3 Ml Vial SC 9 unit .AGGRESSIVE SLIDING PRN Administration Aggressive Correctional Scale Insulin Human Lispro 0 units 08/05/20 12:18 08/10/20 04:06 Humalog 300 Units/3 Ml Vial SC 2 unit .BEDTIME SLIDING SC PRN Administration Bedtime Correctional Scale Loratadine 10 mg 08/05/20 12:16 08/07/20 09:52 Loratadine 10 Mg Tab PO 10 mg DAILYPRN PRN Administration Sinus Symptoms Mometasone Furoate/Formoterol Fumar 2 puff 08/09/20 18:30 08/10/20 18:00 Mometasone 200 Mcg/Formoterol 5 Mcg 120 Puff Inhaler INH 2 puff BID-RT ALIYAH Administration Nystatin 0 gm 08/05/20 15:14 08/05/20 16:04 Nystatin Powder 15 Gm Bot TOP 1 applic BIDPRN PRN Administration Rash/Topical Irritation Ondansetron HCl 4 mg 08/05/20 04:23 08/09/20 12:05 Ondansetron Pf 4 Mg/2 Ml Vial IVP 4 mg Q6H PRN Administration Nausea/Vomiting use 1st Saccharomyces Boulardii 250 mg 12/06/20 09:00 08/10/20 07:54 Saccharomyces Boulardii 250 Mg Cap PO 250 mg BID ALIYAH Administration Sodium Chloride 10 ml 08/05/20 09:00 08/10/20 07:54 Flush - Normal Saline 10 Ml Syringe IVF 10 ml Q12HR ALIYAH Administration Sodium Chloride 10 ml 08/05/20 06:15 08/09/20 12:05 Flush - Normal Saline 10 Ml Syringe IVF 10 ml PRN PRN Administration Saline Flush Tamsulosin HCl 0.4 mg 08/05/20 09:00 08/10/20 07:54 Tamsulosin Hcl 0.4 Mg Cap PO 0.4 mg DAILY ALIYAH Administration Zinc Sulfate 220 mg 08/06/20 09:00 08/10/20 07:54 Zinc Sulfate 220 Mg Cap PO 220 mg DAILY ALIYAH Administration - Exam General Appearance: ill appearing Neck: supple, no JVD Heart: RRR, no gallops Respiratory: rales, rhonchi, tachypneic, wheezes Gastrointestinal: soft, normal bowel sounds, no guarding, no rigidity Neurological: no new deficit Hosp A/P - Plan Acute hypoxic respiratory failure/sepsis due to COVID-19 pneumoniaPOA S/p remdesivir On low-dose dexamethasone (patient developed significant hyperglycemia on 6 mg dexamethasone) Diabetes mellitus type 2 Atrial fibrillationrate controlled on anticoagulation Morbid obesity BMI 49.3 Hypertension Obesity hypoventilation syndrome Chronic diastolic heart failure Hyperlipidemia Benign prostatic hypertrophy COPD Penicillin allergy Plan: Completed remdesivir. Continue low-dose dexamethasone. Continue inhalers. Cardiology input appreciated for atrial fibrillation with intermittent rapid ventricular response. Add oral Cardizem on an as-needed basis. Continue inhaled steroids. GI prophylaxis. Patient already on Eliquis at home. Increase Lantus to 35 units nightly. Continue 30 units Lantus daily. Change sliding scale to AC at bedtime. Recheck labs including inflammatory markers every 48 hours. Continue other medications as above
[2020-08-10] MEDS: Atorvastatin Calcium 40 MG TAB PO SCH (20:42)
[2020-08-10] MEDS: Cholecalciferol 1,000 UNITS (25 MCG) TAB PO SCH (20:42)
[2020-08-10] MEDS: Insulin Glargine 35 UNITS in Pre-Filled Syringe 1 EACH SC SCH (20:43)
[2020-08-11] MEDS: Albuterol 200 PUFF (6.7GM INHALER) INH SCH ×4 (00:22→17:57)
[2020-08-11 05:22] LABS: #Eosinphils 0.1 thou/uL (0.0-0.7); #Lymphocytes 1.1 thou/uL (1.20-3.40); #Monocytes 0.5 thou/uL (0.11-0.59); %Eosinophils 0.6 % (0.0-10.0); %Lymphocytes 9.6 % (21.0-51.0); %Monocytes 4.5 % (0.0-10.0); %Neutrophils 85.3 % (42.0-75.0); Mean Corpuscular HGB CONC 31.7 g/dL (32.0-36.0); Mean Corpuscular Hemoglobin 28.4 pg (27.0-31.0); Mean Corpuscular Volume 89.6 fL (78.0-98.0); Mean Platelet Volume 10.5 fL (7.4-10.4); Platelet Count 223 thou/uL (130-400); RBC Distribution Width 12.9 % (11.5-14.5); Red Blood Cell (RBC) Count 4.95 mill/uL (4.70-6.10); White Blood Cell (WBC) Count 11.8 thou/uL (4.8-10.8)
[2020-08-11 05:55] LABS: ALT (SGPT) 18 U/L (8-55); AST (SGOT) 12 U/L (5-34); Alkaline Phosphatase 78 U/L (40-110); Anion Gap 12 mmol/L (10-20); BUN (Urea Nitrogen) 15 mg/dL (8.4-25.7); Bilirubin, Total 0.6 mg/dL (0.2-1.2); CRP (Inflammatory) 3.42 mg/dL (= or < 0.5); Calc. Creatinine Clearance 133 mL/min (70-130); Calcium 8.2 mg/dL (7.8-10.44); Carbon Dioxide 29 mmol/L (23-31); Chloride 98 mmol/L (98-107); Globulin 3.1 g/dL (2.4-3.5); Glucose 251 mg/dL (83-110); Protein, Total 6.1 g/dL (5.8-8.1); Sodium 135 mmol/L (136-145)
[2020-08-11] MEDS: HumaLOG 300 UNITS/3 ML VIAL SC PRN ×3 (06:05→16:26)
[2020-08-11] MEDS: Mometasone 200 MCG/Formoterol 5 MCG 120 PUFF INHALER INH SCH ×2 (06:06→17:57)
[2020-08-11] MEDS: Ascorbic Acid 500 mg Chewable Tablet PO SCH (08:42)
[2020-08-11] MEDS: Amlodipine 10 MG TAB PO SCH (08:42)
[2020-08-11] MEDS: Cyanocobalamin (Vitamin B-12) 1,000 MCG TAB PO SCH (08:42)
[2020-08-11] MEDS: Tamsulosin HCl 0.4 MG CAP PO SCH (08:42)
[2020-08-11] MEDS: Famotidine 20 MG TAB PO SCH ×2 (08:42→20:45)
[2020-08-11] MEDS: Doxycycline 100 MG CAP PO SCH ×2 (08:42→20:45)
[2020-08-11] MEDS: Folic Acid 1 MG TAB PO SCH (08:42)
[2020-08-11] MEDS: Apixaban 5 MG TAB PO SCH ×2 (08:42→20:44)
[2020-08-11] MEDS: Carvedilol 25 MG TAB PO SCH ×2 (08:42→16:26)
[2020-08-11] MEDS: Saccharomyces boulardii 250 MG CAP PO SCH ×2 (08:42→20:46)
[2020-08-11] MEDS: Dexamethasone 4 mg/ml Vial SLOW IVP SCH (08:43)
[2020-08-11] MEDS: Allopurinol 100 MG TAB PO SCH (08:43)
[2020-08-11] MEDS: Insulin Glargine 30 UNITS in Pre-Filled Syringe 1 EACH SC SCH (08:43)
[2020-08-11] MEDS: Zinc Sulfate 220 MG CAP PO SCH (08:45)
--- NOTE | 2020-08-11 11:05 | PDOC.CPN ---
- Subjective Date: 08/11/20 Time: 10:18 Interval history: No overnight events, patient remains in atrial fibrillation HR remains in the 70's-80's - Review of Systems General: denies: fever/chills, weight/appetite/sleep changes, night sweats, fatigue Respiratory: reports: shortness of breath Cardiovascular: denies: chest pain, palpitation, edema, paroxysmal nocturnal dyspnea, orthopnea - Objective Allergies/Adverse Reactions: Allergies Allergy/AdvReac Type Severity Reaction Status Date / Time Penicillins Allergy Verified 08/05/20 03:18 Visit Medications: Current Medications Acetaminophen (Acetaminophen 325 Mg Tab) 650 mg PO Q4H PRN PRN Reason: Headache/Fever/Mild Pain (1-3) Hydrocodone Bitart/Acetaminophen (Hydrocodone/Acetaminophen 5/325 Mg Tablet) 1 tab PO Q4H PRN PRN Reason: Moderate Pain (4-6) Albuterol Sulfate (Albuterol 200 Puff (6.7gm Inhaler)) 2 puff INH [id number] [facility] Last Admin: 08/11/20 06:05 Dose: 2 puff Documented by: Allopurinol (Allopurinol 100 Mg Tab) 100 mg PO DAILY [facility] Last Admin: 08/11/20 08:43 Dose: 100 mg Documented by: Amlodipine Besylate (Amlodipine 10 Mg Tab) 10 mg PO DAILY [facility] Last Admin: 08/11/20 08:42 Dose: 10 mg Documented by: Apixaban (Apixaban 5 Mg Tab) 5 mg PO BID [facility] Last Admin: 08/11/20 08:42 Dose: 5 mg Documented by: Ascorbic Acid (Ascorbic Acid 500 Mg Chewable Tablet) 1,000 mg PO DAILY [facility] Last Admin: 08/11/20 08:42 Dose: 1,000 mg Documented by: Atorvastatin Calcium (Atorvastatin Calcium 40 Mg Tab) 40 mg PO HS [facility] Last Admin: 08/10/20 20:42 Dose: 40 mg Documented by: Benzonatate (Benzonatate 100 Mg Cap) 100 mg PO Q6H PRN PRN Reason: Cough Bisacodyl (Bisacodyl 10 Mg Supp) 10 mg NH DAILYPRN PRN PRN Reason: Constipation Calcium Carbonate (Calcium Carbonate 500 Mg Chewtab) 1,000 mg PO Q4H PRN PRN Reason: Heartburn or Indigestion Carvedilol (Carvedilol 25 Mg Tab) 25 mg PO BID-WM [facility] Last Admin: 08/11/20 08:42 Dose: 25 mg Documented by: Cholecalciferol (Cholecalciferol 1,000 Units (25 Mcg) Tab) 5,000 units PO HS [facility] Last Admin: 08/10/20 20:42 Dose: 5,000 units Documented by: Cyanocobalamin (Cyanocobalamin (Vitamin B-12) 1,000 Mcg Tab) 1,000 mcg PO DAILY [facility] Last Admin: 08/11/20 08:42 Dose: 1,000 mcg Documented by: Dexamethasone (Dexamethasone 4 Mg/Ml Vial) 2 mg SLOW IVP Q24HR [facility] Last Admin: 08/11/20 08:43 Dose: 2 mg Documented by: Dextrose/Water (Dextrose 50% Abboject 50 Ml Syringe) 25 gm SLOW IVP PRN PRN PRN Reason: Hypoglycemia Diltiazem HCl (Diltiazem Hcl 30 Mg Tablet) 30 mg PO Q6HR PRN PRN Reason: HR >120 sustained Doxycycline Hyclate (Doxycycline 100 Mg Cap) 100 mg PO BID [facility] Last Admin: 08/11/20 08:42 Dose: 100 mg Documented by: Famotidine (Famotidine 20 Mg Tab) 20 mg PO BID [facility] Last Admin: 08/11/20 08:42 Dose: 20 mg Documented by: Folic Acid (Folic Acid 1 Mg Tab) 1 mg PO DAILY [facility] Last Admin: 08/11/20 08:42 Dose: 1 mg Documented by: Glucagon (Glucagon 1 Mg/Ml Vial) 1 mg IM PRN PRN PRN Reason: Hypoglycemia Guaifenesin (Diabetic Tussin 200 Mg/10 Ml Udcup) 200 mg PO Q4H PRN PRN Reason: Cough Guaifenesin/Dextromethorphan (Guaifenesin Dm 100-10/5 Ml Udcup) 15 ml PO Q4H PRN PRN Reason: Cough Hydralazine HCl (Hydralazine 20 Mg/Ml Vial) 10 mg SLOW IVP Q4H PRN PRN Reason: SBP > 180 and HR < 70 Promethazine HCl 12.5 mg/ (Sodium Chloride) 50.5 mls @ 202 mls/hr IVPB Q6H PRN PRN Reason: Nausea/vomiting use second Dextrose/Water (D5w) 1,000 mls @ 0 mls/hr IV .Q0M PRN PRN Reason: Hypoglycemia Insulin Glargine 30 units/ (Miscellaneous Medication) 0.3 mls @ 0 mls/hr SC QAM [facility] Last Admin: 08/11/20 08:43 Dose: 0.3 mls Documented by: Insulin Glargine 35 units/ (Miscellaneous Medication) 0.35 mls @ 0 mls/hr SC HS [facility] Last Admin: 08/10/20 20:43 Dose: 0.35 mls Documented by: Insulin Human Lispro (Humalog 300 Units/3 Ml Vial) 0 units SC .AGGRESSIVE SLIDING PRN PRN Reason: Aggressive Correctional Scale Last Admin: 08/11/20 06:05 Dose: 9 unit Documented by: Insulin Human Lispro (Humalog 300 Units/3 Ml Vial) 0 units SC .BEDTIME SLIDING SC PRN PRN Reason: Bedtime Correctional Scale Last Admin: 08/10/20 20:47 Dose: 5 unit Documented by: Labetalol HCl (Labetalol Hcl 100 Mg/20 Ml Vial) 20 mg SLOW IVP Q4H PRN PRN Reason: SBP > 160 use first Loperamide HCl (Loperamide Hcl 2 Mg Cap) 2 mg PO PRN PRN PRN Reason: Diarrhea/Loose Stools Loratadine (Loratadine 10 Mg Tab) 10 mg PO DAILYPRN PRN PRN Reason: Sinus Symptoms Last Admin: 08/07/20 09:52 Dose: 10 mg Documented by: Mometasone Furoate/Formoterol Fumar (Mometasone 200 Mcg/Formoterol 5 Mcg 120 Puff Inhaler) 2 puff INH BID-RT [facility] Last Admin: 08/11/20 06:06 Dose: 2 puff Documented by: Morphine Sulfate (Morphine 2 Mg/Ml Vial) 2 mg SLOW IVP Q4H PRN PRN Reason: severe pain 4-10 Nystatin (Nystatin Powder 15 Gm Bot) 0 gm TOP BIDPRN PRN PRN Reason: Rash/Topical Irritation Last Admin: 08/05/20 16:04 Dose: 1 applic Documented by: Ondansetron HCl (Ondansetron Pf 4 Mg/2 Ml Vial) 4 mg IVP Q6H PRN PRN Reason: Nausea/Vomiting use 1st Last Admin: 08/09/20 12:05 Dose: 4 mg Documented by: Ondansetron HCl (Ondansetron Odt 4 Mg Tab) 4 mg SL Q6H PRN PRN Reason: Nausea/Vomiting Saccharomyces Boulardii (Saccharomyces Boulardii 250 Mg Cap) 250 mg PO BID [facility] Last Admin: 08/11/20 08:42 Dose: 250 mg Documented by: Senna/Docusate Sodium (Senokot S 8.6-50 Mg Tab) 2 tab PO BID PRN PRN Reason: Constipation Sodium Chloride (Flush - Normal Saline 10 Ml Syringe) 10 ml IVF Q12HR [facility] Last Admin: 08/11/20 08:43 Dose: 10 ml Documented by: Sodium Chloride (Flush - Normal Saline 10 Ml Syringe) 10 ml IVF PRN PRN PRN Reason: Saline Flush Last Admin: 08/09/20 12:05 Dose: 10 ml Documented by: Sodium Chloride (Sodium Chloride 0.65% Nasal 44 Ml Bot) 0 ml EA NARE QIDPRN PRN PRN Reason: Nasal Congestion Tamsulosin HCl (Tamsulosin Hcl 0.4 Mg Cap) 0.4 mg PO DAILY [facility] Last Admin: 08/11/20 08:42 Dose: 0.4 mg Documented by: Throat Lozenges (Cepastat Lozenges 1 Ronny) 1 ronny PO Q2H PRN PRN Reason: Sore Throat Zinc Sulfate (Zinc Sulfate 220 Mg Cap) 220 mg PO DAILY [facility] Last Admin: 08/11/20 08:45 Dose: 220 mg Documented by: Vital Signs & Weight: Vital Signs Temp Pulse Resp BP Pulse Ox 08/11/20 07:19 97.5 F L 94 22 H 133/79 92 L 08/11/20 04:35 97.9 F 88 26 H 130/89 92 L 08/11/20 03:21 95 08/11/20 00:30 97.8 F 90 22 H 129/82 95 Weight 333 lb 8 oz - Quality Measures Condition: Atrial Fibrillation/Flutter (hx or current) CV meds: Beta Inder: Yes, Statin: Yes, Anticoagulant: Yes - Physical Exam General: other (Deffered d/t COVID-19, please see primary hospitalists PE.) - Labs Result Diagrams: 08/11/20 04:51 08/11/20 04:51 - EKG Interpretation EKG Method: Telemetry EKG shows: atrial fibrillation (HR 70's, no episodes of RVR overnight) - Assessment/Plan Assessment/Plan: 1. Atrial fibrillation with rapid ventricular response: no more episodes of RVR overnight, he has maintained in atrial fibrillation with his HR sustaining in the 70's-80's. Will continue with Coreg 25 mg PO BID, has PRN Diltiazem 30 mg PO ordered PRN for heart rates sustaining over 120 BPM. We will continue with this treatment plan as his HR has remained relatively well-controlled at this time, we will continue to monitor. 2. Acute respiratory failure due to COVID-19 Pnuemonia: treated by primary care services. 3. Diabetes mellitus Type 2: treated by primary care services.
--- NOTE | 2020-08-11 17:54 | PDOC.HOSPP ---
- Subjective Encounter Date: 08/11/20 Encounter Time: 11:30 Subjective: Patient seen for follow-up regarding good 19 pneumonia. Reports feeling better. - Objective Vital Signs & Weight: Vital Signs (12 hours) Temp Pulse Resp BP Pulse Ox 08/11/20 15:40 97.6 F 84 22 H 142/85 H 91 L 08/11/20 10:55 97.4 F L 82 24 H 129/79 92 L 08/11/20 07:19 97.5 F L 94 22 H 133/79 92 L Weight Weight 333 lb 8 oz Most Recent Monitor Data Heart Rate from ECG 50 NIBP 159/78 NIBP BP-Mean 105 Respiration from ECG 32 SpO2 93 I&O: 08/10/20 08/11/20 08/12/20 06:59 06:59 06:59 Intake Total 930 1280 Output Total 150 925 Balance 780 355 Result Diagrams: 08/11/20 04:51 08/11/20 04:51 Additional Labs: Accuchecks 08/11/20 08/11/20 08/10/20 16:01 10:56 20:46 POC Glucose 277 H 225 H 360 H I reviewed patient's labs and MAR EKG Reviewed by me: Yes (Atrial fibrillation with controlled ventricular response on telemetry) Hospitalist ROS - Review of Systems Respiratory: reports: cough, dry, SOB with excertion. denies: shortness of breath, hemoptysis, pleuritic pain, sputum, wheezing Cardiovascular: denies: chest pain, palpitations, orthopnea, paroxysmal noc. dyspnea, edema, light headedness - Medication Medications: Active Medications Generic Name Dose Route Start Last Admin Trade Name Freq PRN Reason Stop Dose Admin Albuterol Sulfate 2 puff 08/05/20 13:00 08/11/20 11:29 Albuterol 200 Puff (6.7gm Inhaler) INH 2 puff [id number] ALIYAH Administration Allopurinol 100 mg 08/05/20 09:00 08/11/20 08:43 Allopurinol 100 Mg Tab PO 100 mg DAILY ALIYAH Administration Amlodipine Besylate 10 mg 08/05/20 09:00 08/11/20 08:42 Amlodipine 10 Mg Tab PO 10 mg DAILY ALIYAH Administration Apixaban 5 mg 08/05/20 09:00 08/11/20 08:42 Apixaban 5 Mg Tab PO 5 mg BID ALIYAH Administration Ascorbic Acid 1,000 mg 08/06/20 09:00 08/11/20 08:42 Ascorbic Acid 500 Mg Chewable Tablet PO 1,000 mg DAILY ALIYAH Administration Atorvastatin Calcium 40 mg 08/05/20 21:00 08/10/20 20:42 Atorvastatin Calcium 40 Mg Tab PO 40 mg HS ALIYAH Administration Carvedilol 25 mg 08/05/20 08:00 08/11/20 16:26 Carvedilol 25 Mg Tab PO 25 mg BID-WM ALIYAH Administration Cholecalciferol 5,000 units 08/05/20 21:00 08/10/20 20:42 Cholecalciferol 1,000 Units (25 Mcg) Tab PO 5,000 units HS ALIYAH Administration Cyanocobalamin 1,000 mcg 08/10/20 09:00 08/11/20 08:42 Cyanocobalamin (Vitamin B-12) 1,000 Mcg Tab PO 1,000 mcg DAILY ALIYAH Administration Dexamethasone 2 mg 08/07/20 10:00 08/11/20 08:43 Dexamethasone 4 Mg/Ml Vial SLOW IVP 2 mg Q24HR ALIYAH Administration Doxycycline Hyclate 100 mg 08/09/20 21:00 08/11/20 08:42 Doxycycline 100 Mg Cap PO 100 mg BID ALIYAH Administration Famotidine 20 mg 08/05/20 09:00 08/11/20 08:42 Famotidine 20 Mg Tab PO 20 mg BID ALIYAH Administration Folic Acid 1 mg 08/10/20 09:00 08/11/20 08:42 Folic Acid 1 Mg Tab PO 1 mg DAILY ALIYAH Administration Insulin Glargine 30 units/ 0.3 mls @ 0 mls/hr 08/08/20 09:00 08/11/20 08:43 Miscellaneous Medication SC 0.3 mls QAM ALIYAH Administration Insulin Glargine 35 units/ 0.35 mls @ 0 mls/hr 08/10/20 21:00 08/10/20 20:43 Miscellaneous Medication SC 0.35 mls HS ALIYAH Administration Insulin Human Lispro 0 units 08/05/20 12:18 08/11/20 16:26 Humalog 300 Units/3 Ml Vial SC 9 unit .AGGRESSIVE SLIDING PRN Administration Aggressive Correctional Scale Insulin Human Lispro 0 units 08/05/20 12:18 08/10/20 20:47 Humalog 300 Units/3 Ml Vial SC 5 unit .BEDTIME SLIDING SC PRN Administration Bedtime Correctional Scale Loratadine 10 mg 08/05/20 12:16 08/07/20 09:52 Loratadine 10 Mg Tab PO 10 mg DAILYPRN PRN Administration Sinus Symptoms Mometasone Furoate/Formoterol Fumar 2 puff 08/09/20 18:30 08/11/20 06:06 Mometasone 200 Mcg/Formoterol 5 Mcg 120 Puff Inhaler INH 2 puff BID-RT ALIYAH Administration Nystatin 0 gm 08/05/20 15:14 08/05/20 16:04 Nystatin Powder 15 Gm Bot TOP 1 applic BIDPRN PRN Administration Rash/Topical Irritation Ondansetron HCl 4 mg 08/05/20 04:23 08/09/20 12:05 Ondansetron Pf 4 Mg/2 Ml Vial IVP 4 mg Q6H PRN Administration Nausea/Vomiting use 1st Saccharomyces Boulardii 250 mg 08/05/20 09:00 08/11/20 08:42 Saccharomyces Boulardii 250 Mg Cap PO 250 mg BID ALIYAH Administration Sodium Chloride 10 ml 08/05/20 09:00 08/11/20 08:43 Flush - Normal Saline 10 Ml Syringe IVF 10 ml Q12HR ALIYAH Administration Sodium Chloride 10 ml 08/05/20 06:15 08/09/20 12:05 Flush - Normal Saline 10 Ml Syringe IVF 10 ml PRN PRN Administration Saline Flush Tamsulosin HCl 0.4 mg 08/05/20 09:00 08/11/20 08:42 Tamsulosin Hcl 0.4 Mg Cap PO 0.4 mg DAILY ALIYAH Administration Zinc Sulfate 220 mg 08/06/20 09:00 08/11/20 08:45 Zinc Sulfate 220 Mg Cap PO 220 mg DAILY ALIYAH Administration - Exam General - other findings: Morbid obesity Eye: anicteric sclera ENT: moist mucosa Neck: supple Heart: irregular Respiratory: CTAB Gastrointestinal: soft Skin: no rashes Psychiatric: normal affect, normal behavior Hosp A/P - Plan -Assessment COVID-19 pneumonia Acute hypoxic respiratory failure/sepsis due to COVID-19 pneumonia Diabetes mellitus type 2 Atrial fibrillationrate controlled Morbid obesity BMI 49.3 Hypertension Obesity hypoventilation syndrome Chronic diastolic heart failure Hyperlipidemia Benign prostatic hypertrophy COPD - Plan Patient completed remdesivir treatment. Currently on dexamethasone. On beta-raj and anticoagulation for atrial fibrillation. Blood sugars are still high, increase Lantus to 35 units twice daily. Administer 5 more units of Lantus insulin at this time.
[2020-08-11] MEDS: Atorvastatin Calcium 40 MG TAB PO SCH (20:44)
[2020-08-11] MEDS: Cholecalciferol 1,000 UNITS (25 MCG) TAB PO SCH (20:45)
[2020-08-11] MEDS: Insulin Glargine 35 UNITS in Pre-Filled Syringe 1 EACH SC SCH (20:48)
[2020-08-12] MEDS: Albuterol 200 PUFF (6.7GM INHALER) INH SCH ×4 (01:09→17:00)
[2020-08-12] MEDS: Mometasone 200 MCG/Formoterol 5 MCG 120 PUFF INHALER INH SCH ×2 (05:37→16:59)
[2020-08-12] MEDS: Insulin Glargine 30 UNITS in Pre-Filled Syringe 1 EACH SC SCH (08:46)
[2020-08-12] MEDS: Doxycycline 100 MG CAP PO SCH ×2 (08:48→20:37)
[2020-08-12] MEDS: Famotidine 20 MG TAB PO SCH ×2 (08:49→20:37)
[2020-08-12] MEDS: Zinc Sulfate 220 MG CAP PO SCH (08:49)
[2020-08-12] MEDS: Saccharomyces boulardii 250 MG CAP PO SCH ×2 (08:49→20:37)
[2020-08-12] MEDS: Carvedilol 25 MG TAB PO SCH ×2 (08:50→16:59)
[2020-08-12] MEDS: Tamsulosin HCl 0.4 MG CAP PO SCH (08:50)
[2020-08-12] MEDS: Apixaban 5 MG TAB PO SCH ×2 (08:50→20:37)
[2020-08-12] MEDS: Folic Acid 1 MG TAB PO SCH (08:50)
[2020-08-12] MEDS: Ascorbic Acid 500 mg Chewable Tablet PO SCH (08:50)
[2020-08-12] MEDS: Amlodipine 10 MG TAB PO SCH (08:50)
[2020-08-12] MEDS: Dexamethasone 4 mg/ml Vial SLOW IVP SCH (08:51)
[2020-08-12] MEDS: Cyanocobalamin (Vitamin B-12) 1,000 MCG TAB PO SCH (08:51)
[2020-08-12] MEDS: Allopurinol 100 MG TAB PO SCH (08:51)
[2020-08-12] MEDS: HumaLOG 300 UNITS/3 ML VIAL SC PRN ×2 (12:43→16:23)
--- NOTE | 2020-08-12 13:37 | PDOC.CPN ---
- Subjective Date: 08/12/20 Time: 12:00 Interval history: No overnight events, patient remains fairly well reate-controlled in atrial fibrillation. He is still on oxygen and receiving IV steroids. - Review of Systems General: denies: fever/chills, weight/appetite/sleep changes, night sweats, fatigue Respiratory: reports: shortness of breath Cardiovascular: denies: chest pain, palpitation, edema, paroxysmal nocturnal dyspnea, orthopnea Gastrointestinal: denies: nausea, vomiting, diarrhea, constipation, abd pain, GI bleeding Musculoskeletal: denies: pain, tenderness, stiffness, swelling, arthritis/arthralgias Neurological: denies: numbness, syncope, seizure, weakness - Objective Allergies/Adverse Reactions: Allergies Allergy/AdvReac Type Severity Reaction Status Date / Time Penicillins Allergy Verified 08/05/20 03:18 Visit Medications: Current Medications Acetaminophen (Acetaminophen 325 Mg Tab) 650 mg PO Q4H PRN PRN Reason: Headache/Fever/Mild Pain (1-3) Hydrocodone Bitart/Acetaminophen (Hydrocodone/Acetaminophen 5/325 Mg Tablet) 1 tab PO Q4H PRN PRN Reason: Moderate Pain (4-6) Albuterol Sulfate (Albuterol 200 Puff (6.7gm Inhaler)) 2 puff INH [id number] [facility] Last Admin: 08/12/20 12:58 Dose: 2 puff Documented by: Allopurinol (Allopurinol 100 Mg Tab) 100 mg PO DAILY [facility] Last Admin: 08/12/20 08:51 Dose: 100 mg Documented by: Amlodipine Besylate (Amlodipine 10 Mg Tab) 10 mg PO DAILY [facility] Last Admin: 08/12/20 08:50 Dose: 10 mg Documented by: Apixaban (Apixaban 5 Mg Tab) 5 mg PO BID [facility] Last Admin: 08/12/20 08:50 Dose: 5 mg Documented by: Ascorbic Acid (Ascorbic Acid 500 Mg Chewable Tablet) 1,000 mg PO DAILY [facility] Last Admin: 08/12/20 08:50 Dose: 1,000 mg Documented by: Atorvastatin Calcium (Atorvastatin Calcium 40 Mg Tab) 40 mg PO HS [facility] Last Admin: 08/11/20 20:44 Dose: 40 mg Documented by: Benzonatate (Benzonatate 100 Mg Cap) 100 mg PO Q6H PRN PRN Reason: Cough Bisacodyl (Bisacodyl 10 Mg Supp) 10 mg NM DAILYPRN PRN PRN Reason: Constipation Calcium Carbonate (Calcium Carbonate 500 Mg Chewtab) 1,000 mg PO Q4H PRN PRN Reason: Heartburn or Indigestion Carvedilol (Carvedilol 25 Mg Tab) 25 mg PO BID-[facility] Last Admin: 08/12/20 08:50 Dose: 25 mg Documented by: Cholecalciferol (Cholecalciferol 1,000 Units (25 Mcg) Tab) 5,000 units PO [facility] Last Admin: 08/11/20 20:45 Dose: 5,000 units Documented by: Cyanocobalamin (Cyanocobalamin (Vitamin B-12) 1,000 Mcg Tab) 1,000 mcg PO DAILY [facility] Last Admin: 08/12/20 08:51 Dose: 1,000 mcg Documented by: Dexamethasone (Dexamethasone 4 Mg/Ml Vial) 2 mg SLOW IVP Q24HR [facility] Last Admin: 08/12/20 08:51 Dose: 2 mg Documented by: Dextrose/Water (Dextrose 50% Abboject 50 Ml Syringe) 25 gm SLOW IVP PRN PRN PRN Reason: Hypoglycemia Diltiazem HCl (Diltiazem Hcl 30 Mg Tablet) 30 mg PO Q6HR PRN PRN Reason: HR >120 sustained Doxycycline Hyclate (Doxycycline 100 Mg Cap) 100 mg PO BID [facility] Last Admin: 08/12/20 08:48 Dose: 100 mg Documented by: Famotidine (Famotidine 20 Mg Tab) 20 mg PO BID [facility] Last Admin: 08/12/20 08:49 Dose: 20 mg Documented by: Folic Acid (Folic Acid 1 Mg Tab) 1 mg PO DAILY [facility] Last Admin: 08/12/20 08:50 Dose: 1 mg Documented by: Glucagon (Glucagon 1 Mg/Ml Vial) 1 mg IM PRN PRN PRN Reason: Hypoglycemia Guaifenesin (Diabetic Tussin 200 Mg/10 Ml Udcup) 200 mg PO Q4H PRN PRN Reason: Cough Guaifenesin/Dextromethorphan (Guaifenesin Dm 100-10/5 Ml Udcup) 15 ml PO Q4H PRN PRN Reason: Cough Hydralazine HCl (Hydralazine 20 Mg/Ml Vial) 10 mg SLOW IVP Q4H PRN PRN Reason: SBP > 180 and HR < 70 Promethazine HCl 12.5 mg/ (Sodium Chloride) 50.5 mls @ 202 mls/hr IVPB Q6H PRN PRN Reason: Nausea/vomiting use second Dextrose/Water (D5w) 1,000 mls @ 0 mls/hr IV .Q0M PRN PRN Reason: Hypoglycemia Insulin Glargine 30 units/ (Miscellaneous Medication) 0.3 mls @ 0 mls/hr SC QAM [facility] Last Admin: 08/12/20 08:46 Dose: 0.3 mls Documented by: Insulin Glargine 35 units/ (Miscellaneous Medication) 0.35 mls @ 0 mls/hr SC HS [facility] Last Admin: 08/11/20 20:48 Dose: 0.35 mls Documented by: Insulin Human Lispro (Humalog 300 Units/3 Ml Vial) 0 units SC .AGGRESSIVE SLIDING PRN PRN Reason: Aggressive Correctional Scale Last Admin: 08/12/20 12:43 Dose: 6 unit Documented by: Insulin Human Lispro (Humalog 300 Units/3 Ml Vial) 0 units SC .BEDTIME SLIDING SC PRN PRN Reason: Bedtime Correctional Scale Last Admin: 08/10/20 20:47 Dose: 5 unit Documented by: Labetalol HCl (Labetalol Hcl 100 Mg/20 Ml Vial) 20 mg SLOW IVP Q4H PRN PRN Reason: SBP > 160 use first Loperamide HCl (Loperamide Hcl 2 Mg Cap) 2 mg PO PRN PRN PRN Reason: Diarrhea/Loose Stools Loratadine (Loratadine 10 Mg Tab) 10 mg PO DAILYPRN PRN PRN Reason: Sinus Symptoms Last Admin: 08/07/20 09:52 Dose: 10 mg Documented by: Mometasone Furoate/Formoterol Fumar (Mometasone 200 Mcg/Formoterol 5 Mcg 120 Puff Inhaler) 2 puff INH BID-RT [facility] Last Admin: 08/12/20 05:37 Dose: 2 puff Documented by: Morphine Sulfate (Morphine 2 Mg/Ml Vial) 2 mg SLOW IVP Q4H PRN PRN Reason: severe pain 4-10 Nystatin (Nystatin Powder 15 Gm Bot) 0 gm TOP BIDPRN PRN PRN Reason: Rash/Topical Irritation Last Admin: 08/05/20 16:04 Dose: 1 applic Documented by: Ondansetron HCl (Ondansetron Pf 4 Mg/2 Ml Vial) 4 mg IVP Q6H PRN PRN Reason: Nausea/Vomiting use 1st Last Admin: 08/09/20 12:05 Dose: 4 mg Documented by: Ondansetron HCl (Ondansetron Odt 4 Mg Tab) 4 mg SL Q6H PRN PRN Reason: Nausea/Vomiting Saccharomyces Boulardii (Saccharomyces Boulardii 250 Mg Cap) 250 mg PO BID [facility] Last Admin: 08/12/20 08:49 Dose: 250 mg Documented by: Senna/Docusate Sodium (Senokot S 8.6-50 Mg Tab) 2 tab PO BID PRN PRN Reason: Constipation Sodium Chloride (Flush - Normal Saline 10 Ml Syringe) 10 ml IVF Q12HR [facility] Last Admin: 08/12/20 08:51 Dose: 10 ml Documented by: Sodium Chloride (Flush - Normal Saline 10 Ml Syringe) 10 ml IVF PRN PRN PRN Reason: Saline Flush Last Admin: 08/09/20 12:05 Dose: 10 ml Documented by: Sodium Chloride (Sodium Chloride 0.65% Nasal 44 Ml Bot) 0 ml EA NARE QIDPRN PRN PRN Reason: Nasal Congestion Tamsulosin HCl (Tamsulosin Hcl 0.4 Mg Cap) 0.4 mg PO DAILY [facility] Last Admin: 08/12/20 08:50 Dose: 0.4 mg Documented by: Throat Lozenges (Cepastat Lozenges 1 Ronny) 1 ronny PO Q2H PRN PRN Reason: Sore Throat Zinc Sulfate (Zinc Sulfate 220 Mg Cap) 220 mg PO DAILY [facility] Last Admin: 08/12/20 08:49 Dose: 220 mg Documented by: Vital Signs & Weight: Vital Signs Temp Pulse Resp BP Pulse Ox 08/12/20 11:55 97.7 F 86 20 134/73 91 L 08/12/20 09:20 97.9 F 84 28 H 154/74 H 93 L 08/12/20 05:40 98.2 F 85 22 H 141/85 H 94 L Weight 330 lb 12.8 oz - Quality Measures Condition: Atrial Fibrillation/Flutter (hx or current) CV meds: Beta Inder: Yes, Statin: Yes, Anticoagulant: Yes - Physical Exam General: other (Defferred d/t COVID-19.) - Labs Result Diagrams: 08/11/20 04:51 08/11/20 04:51 - EKG Interpretation EKG shows: atrial fibrillation - Assessment/Plan Assessment/Plan: 1. Atrial fibrillation patient remains in atrial-fibrillation and fairly well rate-controlled at this time. Will continue with Coreg 25 mg PO BID, has PRN Diltiazem 30 mg PO ordered PRN for heart rates sustaining over 120 BPM. We will continue with this treatment plan as his HR has remained relatively well- controlled at this time, we will continue to monitor. 2. Acute respiratory failure due to COVID-19 Pnuemonia: treated by primary care services. 3. Diabetes mellitus Type 2: treated by primary care services. The patient has been rate-controlled for several days, he continues to be on oxygen supplementation for COVID-19 pnuemonia. We will continue with his current treatment plan at this time. He is on Eliquis for stroke prophylaxis as well as a beta inder for rate control. Records reviewed. I agree withn the a/p by the [employer]. Cardiac status is stable. Continue present meds. I will sign off. If any new cardiac issues please consult me again. Thank you. MARYANN.
--- NOTE | 2020-08-12 14:56 | PDOC.HOSPP ---
- Subjective Encounter Date: 08/12/20 Encounter Time: 09:00 Subjective: Patient seen for follow-up for COVID-19 pneumonia. Denies chest pain. Reports shortness of breath on exertion. - Objective Vital Signs & Weight: Vital Signs (12 hours) Temp Pulse Resp BP Pulse Ox 08/12/20 11:55 97.7 F 86 20 134/73 91 L 08/12/20 09:20 97.9 F 84 28 H 154/74 H 93 L 08/12/20 05:40 98.2 F 85 22 H 141/85 H 94 L Weight Weight 330 lb 12.8 oz Most Recent Monitor Data Heart Rate from ECG 50 NIBP 159/78 NIBP BP-Mean 105 Respiration from ECG 32 SpO2 93 I&O: 08/11/20 08/12/20 08/13/20 06:59 06:59 06:59 Intake Total 1280 1840 Output Total 925 1865 Balance 355 -25 Result Diagrams: 08/11/20 04:51 08/11/20 04:51 Additional Labs: Accuchecks 08/12/20 08/12/20 08/11/20 11:41 05:44 20:52 POC Glucose 236 H 156 H 279 H 08/11/20 16:01 POC Glucose 277 H Labs and MAR reviewed by me EKG Reviewed by me: Yes (Telemetry shows atrial fibrillation) Hospitalist ROS - Review of Systems Respiratory: reports: cough, dry, SOB with excertion. denies: shortness of breath, hemoptysis, pleuritic pain, sputum, wheezing Gastrointestinal: denies: nausea, vomiting, abdominal pain, diarrhea, constipation, melena, hematochezia - Medication Medications: Active Medications Generic Name Dose Route Start Last Admin Trade Name Freq PRN Reason Stop Dose Admin Albuterol Sulfate 2 puff 08/05/20 13:00 08/12/20 12:58 Albuterol 200 Puff (6.7gm Inhaler) INH 2 puff [id number] ALIYAH Administration Allopurinol 100 mg 08/05/20 09:00 08/12/20 08:51 Allopurinol 100 Mg Tab PO 100 mg DAILY [facility] Administration Amlodipine Besylate 10 mg 08/05/20 09:00 08/12/20 08:50 Amlodipine 10 Mg Tab PO 10 mg DAILY [facility] Administration Apixaban 5 mg 08/05/20 09:00 08/12/20 08:50 Apixaban 5 Mg Tab PO 5 mg BID [facility]AH Administration Ascorbic Acid 1,000 mg 08/06/20 09:00 08/12/20 08:50 Ascorbic Acid 500 Mg Chewable Tablet PO 1,000 mg DAILY [facility] Administration Atorvastatin Calcium 40 mg 08/05/20 21:00 08/11/20 20:44 Atorvastatin Calcium 40 Mg Tab PO 40 mg HS [facility]AH Administration Carvedilol 25 mg 08/05/20 08:00 08/12/20 08:50 Carvedilol 25 Mg Tab PO 25 mg BID-WM ALIYAH Administration Cholecalciferol 5,000 units 08/05/20 21:00 08/11/20 20:45 Cholecalciferol 1,000 Units (25 Mcg) Tab PO 5,000 units HS [facility] Administration Cyanocobalamin 1,000 mcg 08/10/20 09:00 08/12/20 08:51 Cyanocobalamin (Vitamin B-12) 1,000 Mcg Tab PO 1,000 mcg DAILY [facility] Administration Dexamethasone 2 mg 08/07/20 10:00 08/12/20 08:51 Dexamethasone 4 Mg/Ml Vial SLOW IVP 2 mg Q24HR [facility] Administration Doxycycline Hyclate 100 mg 08/09/20 21:00 08/12/20 08:48 Doxycycline 100 Mg Cap PO 100 mg BID [facility] Administration Famotidine 20 mg 08/05/20 09:00 08/12/20 08:49 Famotidine 20 Mg Tab PO 20 mg BID [facility] Administration Folic Acid 1 mg 08/10/20 09:00 08/12/20 08:50 Folic Acid 1 Mg Tab PO 1 mg DAILY [facility] Administration Insulin Glargine 30 units/ 0.3 mls @ 0 mls/hr 08/08/20 09:00 08/12/20 08:46 Miscellaneous Medication SC 0.3 mls QAM [facility] Administration Insulin Glargine 35 units/ 0.35 mls @ 0 mls/hr 08/10/20 21:00 08/11/20 20:48 Miscellaneous Medication SC 0.35 mls HS [facility] Administration Insulin Human Lispro 0 units 08/05/20 12:18 08/12/20 12:43 Humalog 300 Units/3 Ml Vial SC 6 unit .AGGRESSIVE SLIDING PRN Administration Aggressive Correctional Scale Insulin Human Lispro 0 units 08/05/20 12:18 08/10/20 20:47 Humalog 300 Units/3 Ml Vial SC 5 unit .BEDTIME SLIDING SC PRN Administration Bedtime Correctional Scale Loratadine 10 mg 08/05/20 12:16 08/07/20 09:52 Loratadine 10 Mg Tab PO 10 mg DAILYPRN PRN Administration Sinus Symptoms Mometasone Furoate/Formoterol Fumar 2 puff 08/09/20 18:30 08/12/20 05:37 Mometasone 200 Mcg/Formoterol 5 Mcg 120 Puff Inhaler INH 2 puff BID-RT [facility] Administration Nystatin 0 gm 08/05/20 15:14 08/05/20 16:04 Nystatin Powder 15 Gm Bot TOP 1 applic BIDPRN PRN Administration Rash/Topical Irritation Ondansetron HCl 4 mg 08/05/20 04:23 08/09/20 12:05 Ondansetron Pf 4 Mg/2 Ml Vial IVP 4 mg Q6H PRN Administration Nausea/Vomiting use 1st Saccharomyces Boulardii 250 mg 08/05/20 09:00 08/12/20 08:49 Saccharomyces Boulardii 250 Mg Cap PO 250 mg BID [facility] Administration Sodium Chloride 10 ml 08/05/20 09:00 08/12/20 08:51 Flush - Normal Saline 10 Ml Syringe IVF 10 ml Q12HR [facility] Administration Sodium Chloride 10 ml 08/05/20 06:15 08/09/20 12:05 Flush - Normal Saline 10 Ml Syringe IVF 10 ml PRN PRN Administration Saline Flush Tamsulosin HCl 0.4 mg 08/05/20 09:00 08/12/20 08:50 Tamsulosin Hcl 0.4 Mg Cap PO 0.4 mg DAILY [facility] Administration Zinc Sulfate 220 mg 08/06/20 09:00 08/12/20 08:49 Zinc Sulfate 220 Mg Cap PO 220 mg DAILY [facility] Administration - Exam General - other findings: Morbid obesity ENT: normocephalic atraumatic, no oropharyngeal lesions Neck: supple Heart: no rubs, irregular Respiratory: CTAB Gastrointestinal: soft, non-tender Skin: no rashes Psychiatric: normal affect, normal behavior Hosp A/P - Plan -Assessment COVID-19 pneumonia Acute hypoxic respiratory failure/sepsis due to COVID-19 pneumonia Diabetes mellitus type 2 Atrial fibrillationrate controlled Morbid obesity BMI 49.3 Hypertension Obesity hypoventilation syndrome Chronic diastolic heart failure Hyperlipidemia Benign prostatic hypertrophy COPD - Plan Status post remdesivir treatment. Continue dexamethasone. Patient continues to need 6 L/min of oxygen. Continue beta-raj and anticoagulation for atrial fibrillation. Blood sugars are still high, increase Lantus to 40
[2020-08-12] MEDS: Cholecalciferol 1,000 UNITS (25 MCG) TAB PO SCH (20:36)
[2020-08-12] MEDS: Insulin Glargine 40 UNITS in Pre-Filled Syringe 1 EACH SC SCH (20:37)
[2020-08-12] MEDS: Atorvastatin Calcium 40 MG TAB PO SCH (20:37)
[2020-08-13] MEDS: Albuterol 200 PUFF (6.7GM INHALER) INH SCH ×4 (02:08→18:16)
[2020-08-13] MEDS: Mometasone 200 MCG/Formoterol 5 MCG 120 PUFF INHALER INH SCH ×2 (06:28→18:16)
[2020-08-13] MEDS: Famotidine 20 MG TAB PO SCH ×2 (08:02→20:15)
[2020-08-13] MEDS: Saccharomyces boulardii 250 MG CAP PO SCH ×2 (08:02→20:14)
[2020-08-13] MEDS: Doxycycline 100 MG CAP PO SCH ×2 (08:02→20:14)
[2020-08-13] MEDS: Ascorbic Acid 500 mg Chewable Tablet PO SCH (08:02)
[2020-08-13] MEDS: Allopurinol 100 MG TAB PO SCH (08:03)
[2020-08-13] MEDS: Apixaban 5 MG TAB PO SCH ×2 (08:03→20:14)
[2020-08-13] MEDS: Tamsulosin HCl 0.4 MG CAP PO SCH (08:03)
[2020-08-13] MEDS: Cyanocobalamin (Vitamin B-12) 1,000 MCG TAB PO SCH (08:03)
[2020-08-13] MEDS: Folic Acid 1 MG TAB PO SCH (08:03)
[2020-08-13] MEDS: Zinc Sulfate 220 MG CAP PO SCH (08:03)
[2020-08-13] MEDS: Dexamethasone 4 mg/ml Vial SLOW IVP SCH (08:04)
[2020-08-13] MEDS: Amlodipine 10 MG TAB PO SCH (08:04)
[2020-08-13] MEDS: Carvedilol 25 MG TAB PO SCH ×2 (08:04→16:21)
[2020-08-13] MEDS: Insulin Glargine 40 UNITS in Pre-Filled Syringe 1 EACH SC SCH ×2 (08:08→20:15)
[2020-08-13 09:28] LABS: Actual Bicarbonate (HCO3a) 28.7 mEq/L (22-28); Base Excess (BEa) 4.2 mEq/L (-2.0 to +3.0); CO2 Tension 42.1 mmHg (35.0-45.0); Calcium, Ionized (arterial) 1.15 mmol/L (1.12-1.30); Carboxyhemoglobin (COHb) 0.8 gm% (0.0-3.0); Hemoglobin (Hb) 14.7 g/dL (14.0-18.0); O2 Tension (PaO2), arterial 63.3 mmHg (> 60.0); Potassium - ABG Lab 4.07 mmol/L (3.70-5.30); pH, Arterial 7.45 (7.35-7.45)
[2020-08-13 09:29] LABS: ALV-art Gradient 440.215 mmHg (0-20); Puncture Site RBA
--- NOTE | 2020-08-13 10:57 | PQF ---
CLINICAL DOCUMENTATION CLARIFICATION FORM: Dear Dr. Mg Date: 08/13/20 Please exercise your independent, professional judgment in responding to the clarification form. Clinical indicators are provided on the bottom of this form for your review. Please check appropriate box(es): [ ] Sepsis due to: [ ] Severe sepsis with associated acute organ dysfunction: [ ] Acute Respiratory Failure [ ] Acute Kidney injury w/o ATN [ ] Acute Kidney Injury w ATN [ ] Encephalopathy (metabolic) (septic) [ ] Disseminated Intravascular Coagulopathy (DIC) [ ] Hepatic Failure [ ] Additional/Other: please specify: [ ] Localized infection without sepsis [ ] SIRS due to non-infectious process (please specify etiology) [ ] with organ dysfunction [ ] without organ dysfunction [ ] Other diagnosis [ ] Unable to determine In addition, please specify: Present on Admission (POA): [ ] Yes [ ] No [ ] Unable to determine For continuity of documentation, please document condition throughout progress notes and discharge summary. Thank You. To be completed by CDI/Coding staff for physician review: CLINICAL INDICATORS - SIGNS / SYMPTOMS / LABS / RESULTS AND LOCATION IN MR RR 24-32 TEMP 101.5 PER EMS (SEE ER NOTE) CRP 08/10: 3.24 WBC 08/09: 12.9 RISK FACTORS / RESULTS AND LOCATION IN MR COVID 19 (PN 08/09-LADHA) PNEUMONIA (PN 08/09-LADHA) ACUTE RESPIRATORY FAILURE (PN 08/09-LADHA) TREATMENTS / RESULTS AND LOCATION IN MR VIBRAMYCIN (08/09-PRESENT) PULMONARY CONSULT 08/06 CDS Signature: Catrachita Green RN Phone #: [phone] Date: 08/13/20 This is a permanent part of the Medical Record [facility]
--- NOTE | 2020-08-13 18:07 | PDOC.HOSPP ---
- Subjective Encounter Date: 08/13/20 Encounter Time: 10:00 Subjective: Patient seen for follow-up for Covid 19 infection. He reports shortness of breath with exertion but otherwise denies any symptoms. - Objective Vital Signs & Weight: Vital Signs (12 hours) Temp Pulse Resp BP Pulse Ox 08/13/20 14:37 98.4 F 100 24 H 129/70 93 L 08/13/20 11:24 98.3 F 97 24 H 128/75 96 08/13/20 10:20 90 95 08/13/20 09:20 94 L 08/13/20 08:15 98.8 F 97 28 H 129/82 93 L Weight Weight 330 lb 12.8 oz Most Recent Monitor Data Heart Rate from ECG 50 NIBP 159/78 NIBP BP-Mean 105 Respiration from ECG 32 SpO2 93 I&O: 08/12/20 08/13/20 08/14/20 06:59 06:59 06:59 Intake Total 1840 840 Output Total 1865 825 900 Balance -25 15 -900 Result Diagrams: 08/11/20 04:51 08/11/20 04:51 Additional Labs: Accuchecks 08/13/20 08/13/20 08/13/20 16:26 11:00 06:24 POC Glucose 191 H 144 H 72 08/12/20 08/10/20 20:28 16:25 POC Glucose 214 H 278 H I reviewed patient's labs and MAR EKG Reviewed by me: Yes (Leona correa on telemetry) Hospitalist ROS - Review of Systems Respiratory: reports: SOB with excertion. denies: cough, dry, shortness of breath, hemoptysis, pleuritic pain, sputum, wheezing Cardiovascular: denies: chest pain, palpitations, orthopnea, edema, light headedness - Medication Medications: Active Medications Generic Name Dose Route Start Last Admin Trade Name Freq PRN Reason Stop Dose Admin Albuterol Sulfate 2 puff 08/05/20 13:00 08/13/20 11:39 Albuterol 200 Puff (6.7gm Inhaler) INH 2 puff [id number] ALIYAH Administration Allopurinol 100 mg 08/05/20 09:00 08/13/20 08:03 Allopurinol 100 Mg Tab PO 100 mg DAILY ALI[facility]AH Administration Amlodipine Besylate 10 mg 08/05/20 09:00 08/13/20 08:04 Amlodipine 10 Mg Tab PO 10 mg DAILY [facility]AH Administration Apixaban 5 mg 08/05/20 09:00 08/13/20 08:03 Apixaban 5 Mg Tab PO 5 mg BID ALIYAH Administration Ascorbic Acid 1,000 mg 08/06/20 09:00 08/13/20 08:02 Ascorbic Acid 500 Mg Chewable Tablet PO 1,000 mg DAILY ALI[facility]AH Administration Atorvastatin Calcium 40 mg 08/05/20 21:00 08/12/20 20:37 Atorvastatin Calcium 40 Mg Tab PO 40 mg HS ALIYAH Administration Carvedilol 25 mg 08/05/20 08:00 08/13/20 16:21 Carvedilol 25 Mg Tab PO 25 mg BID-WM AL[facility] Administration Cholecalciferol 5,000 units 08/05/20 21:00 08/12/20 20:36 Cholecalciferol 1,000 Units (25 Mcg) Tab PO 5,000 units HS ALI[facility]AH Administration Cyanocobalamin 1,000 mcg 08/10/20 09:00 08/13/20 08:03 Cyanocobalamin (Vitamin B-12) 1,000 Mcg Tab PO 1,000 mcg DAILY [facility] Administration Dexamethasone 2 mg 08/07/20 10:00 08/13/20 08:04 Dexamethasone 4 Mg/Ml Vial SLOW IVP 2 mg Q24HR [facility] Administration Doxycycline Hyclate 100 mg 08/09/20 21:00 08/13/20 08:02 Doxycycline 100 Mg Cap PO 100 mg BID [facility]AH Administration Famotidine 20 mg 08/05/20 09:00 08/13/20 08:02 Famotidine 20 Mg Tab PO 20 mg BID ALI[facility]AH Administration Folic Acid 1 mg 08/10/20 09:00 08/13/20 08:03 Folic Acid 1 Mg Tab PO 1 mg DAILY AL[facility] Administration Insulin Glargine 40 units/ 0.4 mls @ 0 mls/hr 08/12/20 21:00 08/12/20 20:37 Miscellaneous Medication SC 0.4 mls HS AL[facility]AH Administration Insulin Glargine 40 units/ 0.4 mls @ 0 mls/hr 08/13/20 09:00 08/13/20 08:08 Miscellaneous Medication SC Not Given QAM ALI[facility] Insulin Human Lispro 0 units 08/05/20 12:18 08/12/20 16:23 Humalog 300 Units/3 Ml Vial SC 6 unit .AGGRESSIVE SLIDING PRN Administration Aggressive Correctional Scale Insulin Human Lispro 0 units 08/05/20 12:18 08/10/20 20:47 Humalog 300 Units/3 Ml Vial SC 5 unit .BEDTIME SLIDING SC PRN Administration Bedtime Correctional Scale Loratadine 10 mg 08/05/20 12:16 08/07/20 09:52 Loratadine 10 Mg Tab PO 10 mg DAILYPRN PRN Administration Sinus Symptoms Mometasone Furoate/Formoterol Fumar 2 puff 08/09/20 18:30 08/13/20 06:28 Mometasone 200 Mcg/Formoterol 5 Mcg 120 Puff Inhaler INH 2 puff BID-RT ALI[facility]AH Administration Nystatin 0 gm 08/05/20 15:14 08/05/20 16:04 Nystatin Powder 15 Gm Bot TOP 1 applic BIDPRN PRN Administration Rash/Topical Irritation Ondansetron HCl 4 mg 08/05/20 04:23 08/09/20 12:05 Ondansetron Pf 4 Mg/2 Ml Vial IVP 4 mg Q6H PRN Administration Nausea/Vomiting use 1st Saccharomyces Boulardii 250 mg 08/05/20 09:00 08/13/20 08:02 Saccharomyces Boulardii 250 Mg Cap PO 250 mg BID AL[facility]AH Administration Sodium Chloride 10 ml 08/05/20 09:00 08/13/20 08:04 Flush - Normal Saline 10 Ml Syringe IVF 10 ml Q12HR AL[facility]AH Administration Sodium Chloride 10 ml 08/05/20 06:15 08/09/20 12:05 Flush - Normal Saline 10 Ml Syringe IVF 10 ml PRN PRN Administration Saline Flush Tamsulosin HCl 0.4 mg 08/05/20 09:00 08/13/20 08:03 Tamsulosin Hcl 0.4 Mg Cap PO 0.4 mg DAILY AL[facility]AH Administration Zinc Sulfate 220 mg 08/06/20 09:00 08/13/20 08:03 Zinc Sulfate 220 Mg Cap PO 220 mg DAILY ALI[facility]AH Administration - Exam General - other findings: Morbidly obese Eye: anicteric sclera Neck: supple Heart: irregular Respiratory: CTAB Gastrointestinal: soft, non-tender Skin: no rashes Psychiatric: normal affect, normal behavior Hosp A/P - Plan -Assessment COVID-19 pneumonia Acute hypoxic respiratory failure/sepsis due to COVID-19 pneumonia Diabetes mellitus type 2 Atrial fibrillationrate controlled Hypertension Obesity hypoventilation syndrome Chronic diastolic heart failure Benign prostatic hypertrophy Hyperlipidemia COPD Morbid obesity BMI 49.3 - Plan ABGs checked today, continue high flow oxygen. Status post remdesivir treatment. Continue dexamethasone. Continue beta-raj and anticoagulation for atrial fibrillation. Blood sugars improved, continue Lantus 40 units twice daily. Continue Accu-Cheks and insulin sliding scale.
[2020-08-13] MEDS: HumaLOG 300 UNITS/3 ML VIAL SC PRN ×2 (18:17→20:16)
[2020-08-13] MEDS: Atorvastatin Calcium 40 MG TAB PO SCH (20:14)
[2020-08-13] MEDS: Cholecalciferol 1,000 UNITS (25 MCG) TAB PO SCH (20:14)
[2020-08-14] MEDS: Albuterol 200 PUFF (6.7GM INHALER) INH SCH ×4 (02:39→18:17)
[2020-08-14] MEDS: Mometasone 200 MCG/Formoterol 5 MCG 120 PUFF INHALER INH SCH ×2 (05:50→17:41)
[2020-08-14] MEDS: HumaLOG 300 UNITS/3 ML VIAL SC PRN ×4 (05:51→21:28)
[2020-08-14] MEDS: Insulin Glargine 40 UNITS in Pre-Filled Syringe 1 EACH SC SCH ×2 (09:45→21:27)
[2020-08-14] MEDS: Amlodipine 10 MG TAB PO SCH (09:46)
[2020-08-14] MEDS: Doxycycline 100 MG CAP PO SCH ×2 (09:46→21:26)
[2020-08-14] MEDS: Saccharomyces boulardii 250 MG CAP PO SCH ×2 (09:46→21:27)
[2020-08-14] MEDS: Zinc Sulfate 220 MG CAP PO SCH (09:46)
[2020-08-14] MEDS: Ascorbic Acid 500 mg Chewable Tablet PO SCH (09:46)
[2020-08-14] MEDS: Famotidine 20 MG TAB PO SCH ×2 (09:47→21:26)
[2020-08-14] MEDS: Dexamethasone 4 mg/ml Vial SLOW IVP SCH (09:47)
[2020-08-14] MEDS: Folic Acid 1 MG TAB PO SCH (09:48)
[2020-08-14] MEDS: Tamsulosin HCl 0.4 MG CAP PO SCH (09:48)
[2020-08-14] MEDS: Cyanocobalamin (Vitamin B-12) 1,000 MCG TAB PO SCH (09:48)
[2020-08-14] MEDS: Allopurinol 100 MG TAB PO SCH (09:48)
[2020-08-14] MEDS: Carvedilol 25 MG TAB PO SCH ×2 (09:49→17:38)
[2020-08-14] MEDS: Apixaban 5 MG TAB PO SCH ×2 (09:49→21:27)
--- NOTE | 2020-08-14 19:27 | PDOC.HOSPP ---
- Subjective Encounter Date: 08/14/20 Encounter Time: 10:00 Subjective: Patient seen for follow-up regarding COVID-19 infection. He denies chest pain or fever - Objective Vital Signs & Weight: Vital Signs (12 hours) Temp Pulse Resp BP Pulse Ox Pulse Ox Pulse Ox 08/14/20 17:49 81 132/96 H 08/14/20 16:00 98.2 F 81 20 109/75 98 08/14/20 15:27 88 L 96 08/14/20 11:35 98.6 F 82 18 129/83 94 L 08/14/20 10:23 97 08/14/20 09:49 98 F 81 22 H 119/74 92 L Pulse Ox 08/14/20 17:49 08/14/20 16:00 08/14/20 15:27 92 L 08/14/20 11:35 08/14/20 10:23 08/14/20 09:49 Weight Weight 330 lb 12.8 oz Most Recent Monitor Data Heart Rate from ECG 50 NIBP 159/78 NIBP BP-Mean 105 Respiration from ECG 32 SpO2 93 I&O: 08/13/20 08/14/20 08/15/20 06:59 06:59 06:59 Intake Total 840 1200 850 Output Total 825 1500 350 Balance 15 -300 500 Result Diagrams: 08/11/20 04:51 08/11/20 04:51 Additional Labs: Accuchecks 08/14/20 08/14/20 08/14/20 16:21 11:32 04:51 POC Glucose 305 H 169 H 195 H 08/13/20 20:15 POC Glucose 316 H Labs and MAR reviewed by me EKG Reviewed by me: Yes (Telemetry shows atrial fibrillation) Hospitalist ROS - Review of Systems Constitutional: reports: other. denies: fever, chills, sweats, weakness, malaise Respiratory: reports: cough, dry, SOB with excertion. denies: shortness of breath, hemoptysis, pleuritic pain, sputum, wheezing - Medication Medications: Active Medications Generic Name Dose Route Start Last Admin Trade Name Freq PRN Reason Stop Dose Admin Hydrocodone Bitart/Acetaminophen 1 tab 08/05/20 04:23 08/14/20 12:39 Hydrocodone/Acetaminophen 5/325 Mg Tablet PO 1 tab Q4H PRN Administration Moderate Pain (4-6) Albuterol Sulfate 2 puff 08/05/20 13:00 08/14/20 18:17 Albuterol 200 Puff (6.7gm Inhaler) INH 2 puff [id number] ALIYAH Administration Allopurinol 100 mg 08/05/20 09:00 08/14/20 09:48 Allopurinol 100 Mg Tab PO 100 mg DAILY ALIYAH Administration Amlodipine Besylate 10 mg 08/05/20 09:00 08/14/20 09:46 Amlodipine 10 Mg Tab PO 10 mg DAILY ALIYAH Administration Apixaban 5 mg 08/05/20 09:00 08/14/20 09:49 Apixaban 5 Mg Tab PO 5 mg BID ALIYAH Administration Ascorbic Acid 1,000 mg 08/06/20 09:00 08/14/20 09:46 Ascorbic Acid 500 Mg Chewable Tablet PO 1,000 mg DAILY ALIYAH Administration Atorvastatin Calcium 40 mg 08/05/20 21:00 08/13/20 20:14 Atorvastatin Calcium 40 Mg Tab PO 40 mg HS ALIYAH Administration Carvedilol 25 mg 08/05/20 08:00 08/14/20 17:38 Carvedilol 25 Mg Tab PO 25 mg BID-WM ALIYAH Administration Cholecalciferol 5,000 units 08/05/20 21:00 08/13/20 20:14 Cholecalciferol 1,000 Units (25 Mcg) Tab PO 5,000 units HS ALIYAH Administration Cyanocobalamin 1,000 mcg 08/10/20 09:00 08/14/20 09:48 Cyanocobalamin (Vitamin B-12) 1,000 Mcg Tab PO 1,000 mcg DAILY ALIYAH Administration Dexamethasone 2 mg 08/07/20 10:00 08/14/20 09:47 Dexamethasone 4 Mg/Ml Vial SLOW IVP 2 mg Q24HR ALIYAH Administration Doxycycline Hyclate 100 mg 08/09/20 21:00 08/14/20 09:46 Doxycycline 100 Mg Cap PO 100 mg BID ALIYAH Administration Famotidine 20 mg 08/05/20 09:00 08/14/20 09:47 Famotidine 20 Mg Tab PO 20 mg BID ALIYAH Administration Folic Acid 1 mg 08/10/20 09:00 12 09:48 Folic Acid 1 Mg Tab PO 1 mg DAILY ALIYAH Administration Insulin Glargine 40 units/ 0.4 mls @ 0 mls/hr 08/12/20 21:00 08/13/20 20:15 Miscellaneous Medication SC 0.4 mls HS ALIYAH Administration Insulin Glargine 40 units/ 0.4 mls @ 0 mls/hr 08/13/20 09:00 08/14/20 09:45 Miscellaneous Medication SC 0.4 mls QAM ALIYAH Administration Insulin Human Lispro 0 units 08/05/20 12:18 08/14/20 17:39 Humalog 300 Units/3 Ml Vial SC 11 unit .AGGRESSIVE SLIDING PRN Administration Aggressive Correctional Scale Insulin Human Lispro 0 units 08/05/20 12:18 08/13/20 20:16 Humalog 300 Units/3 Ml Vial SC 4 unit .BEDTIME SLIDING SC PRN Administration Bedtime Correctional Scale Loratadine 10 mg 08/05/20 12:16 08/07/20 09:52 Loratadine 10 Mg Tab PO 10 mg DAILYPRN PRN Administration Sinus Symptoms Mometasone Furoate/Formoterol Fumar 2 puff 08/09/20 18:30 08/14/20 17:41 Mometasone 200 Mcg/Formoterol 5 Mcg 120 Puff Inhaler INH 2 puff BID-RT ALIYAH Administration Nystatin 0 gm 08/05/20 15:14 08/05/20 16:04 Nystatin Powder 15 Gm Bot TOP 1 applic BIDPRN PRN Administration Rash/Topical Irritation Ondansetron HCl 4 mg 08/05/20 04:23 08/09/20 12:05 Ondansetron Pf 4 Mg/2 Ml Vial IVP 4 mg Q6H PRN Administration Nausea/Vomiting use 1st Saccharomyces Boulardii 250 mg 08/05/20 09:00 08/14/20 09:46 Saccharomyces Boulardii 250 Mg Cap PO 250 mg BID ALIYAH Administration Sodium Chloride 10 ml 08/05/20 09:00 08/14/20 09:46 Flush - Normal Saline 10 Ml Syringe IVF 10 ml Q12HR ALIYAH Administration Sodium Chloride 10 ml 08/05/20 06:15 08/09/20 12:05 Flush - Normal Saline 10 Ml Syringe IVF 10 ml PRN PRN Administration Saline Flush Tamsulosin HCl 0.4 mg 08/05/20 09:00 08/14/20 09:48 Tamsulosin Hcl 0.4 Mg Cap PO 0.4 mg DAILY ALIYAH Administration Zinc Sulfate 220 mg 08/06/20 09:00 08/14/20 09:46 Zinc Sulfate 220 Mg Cap PO 220 mg DAILY ALIYAH Administration - Exam General - other findings: Morbid obesity Eye: anicteric sclera Neck: supple Heart: normal peripheral pulses, irregular Respiratory: rhonchi Gastrointestinal: soft Skin: no rashes Musculoskeletal: no muscle wasting Psychiatric: normal affect Hosp A/P - Plan -Assessment COVID-19 pneumonia Acute hypoxic respiratory failure/sepsis due to COVID-19 pneumonia Diabetes mellitus type 2 Atrial fibrillationrate controlled Hypertension Obesity hypoventilation syndrome Chronic diastolic heart failure Benign prostatic hypertrophy Hyperlipidemia COPD Morbid obesity BMI 49.3 - Plan Patient on high flow oxygen. Status post remdesivir treatment. Patient is on dexamethasone. Continue beta-raj and anticoagulation for atrial fibrillation, which is rate controlled and stable.. continue Lantus 40 units twice daily. Continue Accu-Cheks and insulin sliding scale.
[2020-08-14] MEDS: Cholecalciferol 1,000 UNITS (25 MCG) TAB PO SCH (21:26)
[2020-08-14] MEDS: Atorvastatin Calcium 40 MG TAB PO SCH (21:26)
[2020-08-15] MEDS: Albuterol 200 PUFF (6.7GM INHALER) INH SCH ×4 (00:25→17:44)
[2020-08-15] MEDS: Mometasone 200 MCG/Formoterol 5 MCG 120 PUFF INHALER INH SCH ×2 (06:34→16:36)
[2020-08-15] MEDS: HumaLOG 300 UNITS/3 ML VIAL SC PRN ×3 (06:34→16:31)
[2020-08-15] MEDS: Carvedilol 25 MG TAB PO SCH ×2 (08:21→16:36)
[2020-08-15] MEDS: Famotidine 20 MG TAB PO SCH ×2 (08:22→20:29)
[2020-08-15] MEDS: Doxycycline 100 MG CAP PO SCH ×2 (08:22→20:29)
[2020-08-15] MEDS: Cyanocobalamin (Vitamin B-12) 1,000 MCG TAB PO SCH (08:22)
[2020-08-15] MEDS: Ascorbic Acid 500 mg Chewable Tablet PO SCH (08:22)
[2020-08-15] MEDS: Apixaban 5 MG TAB PO SCH ×2 (08:22→20:28)
[2020-08-15] MEDS: Allopurinol 100 MG TAB PO SCH (08:22)
[2020-08-15] MEDS: Amlodipine 10 MG TAB PO SCH (08:22)
[2020-08-15] MEDS: Folic Acid 1 MG TAB PO SCH (08:23)
[2020-08-15] MEDS: Tamsulosin HCl 0.4 MG CAP PO SCH (08:23)
[2020-08-15] MEDS: Zinc Sulfate 220 MG CAP PO SCH (08:23)
[2020-08-15] MEDS: Saccharomyces boulardii 250 MG CAP PO SCH ×2 (08:23→20:30)
[2020-08-15] MEDS: Insulin Glargine 40 UNITS in Pre-Filled Syringe 1 EACH SC SCH ×2 (09:43→20:29)
[2020-08-15] MEDS: Dexamethasone 4 mg/ml Vial SLOW IVP SCH (11:22)
--- NOTE | 2020-08-15 18:54 | PDOC.HOSPP ---
- Subjective Encounter Date: 08/15/20 Encounter Time: 09:30 Subjective: Patient seen for follow-up regarding COVID-19 infection. He is on high flow oxygen, denies chest pain, reports shortness of breath with exertion. - Objective Vital Signs & Weight: Vital Signs (12 hours) Temp Pulse Resp BP Pulse Ox 08/15/20 16:29 97.8 F 99 24 H 125/67 95 08/15/20 11:57 97 08/15/20 11:34 98 F 85 24 H 122/72 95 08/15/20 08:42 98.4 F 78 28 H 173/101 H 95 Weight Weight 330 lb 12.8 oz Most Recent Monitor Data Heart Rate from ECG 50 NIBP 159/78 NIBP BP-Mean 105 Respiration from ECG 32 SpO2 93 I&O: 08/14/20 08/15/20 08/16/20 06:59 06:59 06:59 Intake Total 1200 1330 480 Output Total 1500 750 300 Balance -300 580 180 Result Diagrams: 08/11/20 04:51 08/11/20 04:51 Additional Labs: Accuchecks 08/15/20 08/15/20 08/15/20 16:18 10:34 05:50 POC Glucose 158 H 193 H 163 H 08/14/20 20:58 POC Glucose 351 H I reviewed patient's labs and MAR EKG Reviewed by me: Yes (Normal sinus rhythm on telemetry) Hospitalist ROS - Review of Systems Respiratory: reports: cough, dry, SOB with excertion. denies: shortness of breath, hemoptysis, pleuritic pain, sputum, wheezing Skin: denies: rash, lesions, del, bruising - Medication Medications: Active Medications Generic Name Dose Route Start Last Admin Trade Name Freq PRN Reason Stop Dose Admin Albuterol Sulfate 2 puff 08/05/20 13:00 08/15/20 17:44 Albuterol 200 Puff (6.7gm Inhaler) INH 2 puff [id number] ALIYAH Administration Allopurinol 100 mg 08/05/20 09:00 08/15/20 08:22 Allopurinol 100 Mg Tab PO 100 mg DAILY ALIYAH Administration Amlodipine Besylate 10 mg 08/05/20 09:00 08/15/20 08:22 Amlodipine 10 Mg Tab PO 10 mg DAILY ALIYAH Administration Apixaban 5 mg 08/05/20 09:00 08/15/20 08:22 Apixaban 5 Mg Tab PO 5 mg BID ALIYAH Administration Ascorbic Acid 1,000 mg 08/06/20 09:00 08/15/20 08:22 Ascorbic Acid 500 Mg Chewable Tablet PO 1,000 mg DAILY ALIYAH Administration Atorvastatin Calcium 40 mg 08/05/20 21:00 08/14/20 21:26 Atorvastatin Calcium 40 Mg Tab PO 40 mg HS ALIYAH Administration Carvedilol 25 mg 08/05/20 08:00 08/15/20 16:36 Carvedilol 25 Mg Tab PO 25 mg BID-WM ALIYAH Administration Cholecalciferol 5,000 units 08/05/20 21:00 08/14/20 21:26 Cholecalciferol 1,000 Units (25 Mcg) Tab PO 5,000 units HS ALIYAH Administration Cyanocobalamin 1,000 mcg 08/10/20 09:00 08/15/20 08:22 Cyanocobalamin (Vitamin B-12) 1,000 Mcg Tab PO 1,000 mcg DAILY ALIYAH Administration Dexamethasone 2 mg 08/07/20 10:00 08/15/20 11:22 Dexamethasone 4 Mg/Ml Vial SLOW IVP 2 mg Q24HR ALIYAH Administration Doxycycline Hyclate 100 mg 08/09/20 21:00 08/15/20 08:22 Doxycycline 100 Mg Cap PO 100 mg BID ALIYAH Administration Famotidine 20 mg 08/05/20 09:00 08/15/20 08:22 Famotidine 20 Mg Tab PO 20 mg BID ALIYAH Administration Folic Acid 1 mg 08/10/20 09:00 08/15/20 08:23 Folic Acid 1 Mg Tab PO 1 mg DAILY ALIYAH Administration Insulin Glargine 40 units/ 0.4 mls @ 0 mls/hr 08/12/20 21:00 08/14/20 21:27 Miscellaneous Medication SC 0.4 mls HS ALIYAH Administration Insulin Glargine 40 units/ 0.4 mls @ 0 mls/hr 08/13/20 09:00 08/15/20 09:43 Miscellaneous Medication SC 0.4 mls QAM ALIYAH Administration Insulin Human Lispro 0 units 08/05/20 12:18 08/15/20 16:31 Humalog 300 Units/3 Ml Vial SC 3 unit .AGGRESSIVE SLIDING PRN Administration Aggressive Correctional Scale Insulin Human Lispro 0 units 08/05/20 12:18 08/14/20 21:28 Humalog 300 Units/3 Ml Vial SC 5 unit .BEDTIME SLIDING SC PRN Administration Bedtime Correctional Scale Loratadine 10 mg 08/05/20 12:16 08/07/20 09:52 Loratadine 10 Mg Tab PO 10 mg DAILYPRN PRN Administration Sinus Symptoms Mometasone Furoate/Formoterol Fumar 2 puff 08/09/20 18:30 08/15/20 16:36 Mometasone 200 Mcg/Formoterol 5 Mcg 120 Puff Inhaler INH 2 puff BID-RT ALIYAH Administration Nystatin 0 gm 08/05/20 15:14 08/05/20 16:04 Nystatin Powder 15 Gm Bot TOP 1 applic BIDPRN PRN Administration Rash/Topical Irritation Ondansetron HCl 4 mg 08/05/20 04:23 08/09/20 12:05 Ondansetron Pf 4 Mg/2 Ml Vial IVP 4 mg Q6H PRN Administration Nausea/Vomiting use 1st Saccharomyces Boulardii 250 mg 08/05/20 09:00 08/15/20 08:23 Saccharomyces Boulardii 250 Mg Cap PO 250 mg BID ALIYAH Administration Sodium Chloride 10 ml 08/05/20 09:00 08/15/20 08:23 Flush - Normal Saline 10 Ml Syringe IVF 10 ml Q12HR ALIYAH Administration Sodium Chloride 10 ml 08/05/20 06:15 08/09/20 12:05 Flush - Normal Saline 10 Ml Syringe IVF 10 ml PRN PRN Administration Saline Flush Tamsulosin HCl 0.4 mg 08/05/20 09:00 08/15/20 08:23 Tamsulosin Hcl 0.4 Mg Cap PO 0.4 mg DAILY ALIYAH Administration Zinc Sulfate 220 mg 08/06/20 09:00 08/15/20 08:23 Zinc Sulfate 220 Mg Cap PO 220 mg DAILY ALIYAH Administration - Exam General - other findings: morbid obesity ENT: no oropharyngeal lesions Neck: supple Heart: RRR Respiratory: normal chest expansion, rhonchi Gastrointestinal: soft, non-tender Skin: no rashes Psychiatric: normal affect Hosp A/P - Plan -Assessment COVID-19 pneumonia Acute hypoxic respiratory failure sepsis due to COVID-19 pneumonia, present on admission Diabetes mellitus type 2 Atrial fibrillationrate controlled Hypertension Obesity hypoventilation syndrome Chronic diastolic heart failure Benign prostatic hypertrophy Hyperlipidemia COPD Morbid obesity BMI 49.3 - Plan Patient continues to be on high flow oxygen. Patient has completed remdesivir treatment. Patient is on dexamethasone. Continue beta-raj and anticoagulation for atrial fibrillation, which is rate controlled and stable.. continue Lantus 40 units twice daily. Continue Accu-Cheks and insulin sliding scale.
[2020-08-15] MEDS: Atorvastatin Calcium 40 MG TAB PO SCH (20:28)
[2020-08-15] MEDS: Cholecalciferol 1,000 UNITS (25 MCG) TAB PO SCH (20:28)
[2020-08-16] MEDS: Albuterol 200 PUFF (6.7GM INHALER) INH SCH ×4 (02:09→16:37)
[2020-08-16 05:04] LABS: #Eosinphils 0.1 thou/uL (0.0-0.7); #Lymphocytes 1.3 thou/uL (1.20-3.40); #Monocytes 0.8 thou/uL (0.11-0.59); #Neutrophils 8.4 thou/uL (1.40-6.50); %Basophils 0.1 % (0.0-1.0); %Eosinophils 0.7 % (0.0-10.0); %Lymphocytes 12.3 % (21.0-51.0); %Monocytes 7.5 % (0.0-10.0); %Neutrophils 79.5 % (42.0-75.0); Hemoglobin 13.2 g/dL (14.0-18.0); Mean Corpuscular Hemoglobin 30.1 pg (27.0-31.0); Mean Corpuscular Volume 91.2 fL (78.0-98.0); Mean Platelet Volume 10.3 fL (7.4-10.4); Platelet Count 192 thou/uL (130-400); Red Blood Cell (RBC) Count 4.36 mill/uL (4.70-6.10); White Blood Cell (WBC) Count 10.6 thou/uL (4.8-10.8)
[2020-08-16 05:37] LABS: Anion Gap 13 mmol/L (10-20); BUN (Urea Nitrogen) 18 mg/dL (8.4-25.7); Calc. Creatinine Clearance 139 mL/min (70-130); Calcium 8.5 mg/dL (7.8-10.44); Carbon Dioxide 27 mmol/L (23-31); Chloride 100 mmol/L (98-107); Glucose 259 mg/dL (83-110); Potassium 4.6 mmol/L (3.5-5.1); Sodium 135 mmol/L (136-145)
[2020-08-16] MEDS: Mometasone 200 MCG/Formoterol 5 MCG 120 PUFF INHALER INH SCH ×2 (06:12→16:36)
[2020-08-16] MEDS: HumaLOG 300 UNITS/3 ML VIAL SC PRN ×4 (06:12→20:25)
[2020-08-16] MEDS: Insulin Glargine 40 UNITS in Pre-Filled Syringe 1 EACH SC SCH ×2 (08:14→20:25)
[2020-08-16] MEDS: Allopurinol 100 MG TAB PO SCH (08:20)
[2020-08-16] MEDS: Amlodipine 10 MG TAB PO SCH (08:20)
[2020-08-16] MEDS: Apixaban 5 MG TAB PO SCH ×2 (08:20→20:24)
[2020-08-16] MEDS: Carvedilol 25 MG TAB PO SCH ×2 (08:20→16:36)
[2020-08-16] MEDS: Ascorbic Acid 500 mg Chewable Tablet PO SCH (08:20)
[2020-08-16] MEDS: Folic Acid 1 MG TAB PO SCH (08:21)
[2020-08-16] MEDS: Saccharomyces boulardii 250 MG CAP PO SCH ×2 (08:21→20:25)
[2020-08-16] MEDS: Tamsulosin HCl 0.4 MG CAP PO SCH (08:21)
[2020-08-16] MEDS: Cyanocobalamin (Vitamin B-12) 1,000 MCG TAB PO SCH (08:21)
[2020-08-16] MEDS: Dexamethasone 4 mg/ml Vial SLOW IVP SCH (08:21)
[2020-08-16] MEDS: Doxycycline 100 MG CAP PO SCH ×2 (08:21→20:25)
[2020-08-16] MEDS: Famotidine 20 MG TAB PO SCH ×2 (08:21→20:25)
[2020-08-16] MEDS: Zinc Sulfate 220 MG CAP PO SCH (08:21)
[2020-08-16 13:11] VITALS: BMI 49.5
--- NOTE | 2020-08-16 19:27 | PDOC.HOSPP ---
- Subjective Encounter Date: 08/16/20 Encounter Time: 12:00 Subjective: Patient seen for follow-up for COVID-19 infection. Reports feeling better today. - Objective Vital Signs & Weight: Vital Signs (12 hours) Temp Pulse Resp BP Pulse Ox 08/16/20 17:00 97.8 F 84 26 H 156/93 H 95 08/16/20 10:33 97.9 F 87 22 H 133/81 96 08/16/20 08:44 96.9 F L 82 28 H 190/118 H 98 Weight Admit Weight 334 lb 1.6 oz Weight 335 lb 8 oz Most Recent Monitor Data Heart Rate from ECG 50 NIBP 159/78 NIBP BP-Mean 105 Respiration from ECG 32 SpO2 93 I&O: 08/15/20 08/16/20 08/17/20 06:59 06:59 06:59 Intake Total 1330 730 720 Output Total 750 1025 400 Balance 580 -295 320 Result Diagrams: 08/16/20 04:54 08/16/20 04:54 Additional Labs: Accuchecks 08/16/20 08/16/20 08/15/20 16:46 10:30 20:05 POC Glucose 290 H 164 H 234 H Labs and MAR reviewed by me EKG Reviewed by me: Yes (Telemetry shows normal sinus rhythm) Hospitalist ROS - Review of Systems Respiratory: denies: cough, shortness of breath, SOB with excertion, pleuritic pain, wheezing Cardiovascular: denies: chest pain, palpitations, orthopnea, paroxysmal noc. dyspnea, edema, light headedness Gastrointestinal: denies: nausea, vomiting, abdominal pain, diarrhea, constipation, melena, hematochezia Genitourinary: denies: dysuria, frequency, incontinence, hematuria, retention - Medication Medications: Active Medications Generic Name Dose Route Start Last Admin Trade Name Freq PRN Reason Stop Dose Admin Albuterol Sulfate 2 puff 08/05/20 13:00 08/16/20 16:37 Albuterol 200 Puff (6.7gm Inhaler) INH 2 puff [id number] ALIYAH Administration Allopurinol 100 mg 08/05/20 09:00 08/16/20 08:20 Allopurinol 100 Mg Tab PO 100 mg DAILY ALIYAH Administration Amlodipine Besylate 10 mg 08/05/20 09:00 08/16/20 08:20 Amlodipine 10 Mg Tab PO 10 mg DAILY ALIYAH Administration Apixaban 5 mg 08/05/20 09:00 08/16/20 08:20 Apixaban 5 Mg Tab PO 5 mg BID ALIYAH Administration Ascorbic Acid 1,000 mg 08/06/20 09:00 08/16/20 08:20 Ascorbic Acid 500 Mg Chewable Tablet PO 1,000 mg DAILY ALIYAH Administration Atorvastatin Calcium 40 mg 08/05/20 21:00 08/15/20 20:28 Atorvastatin Calcium 40 Mg Tab PO 40 mg HS ALIYAH Administration Carvedilol 25 mg 08/05/20 08:00 08/16/20 16:36 Carvedilol 25 Mg Tab PO 25 mg BID-WM ALIYAH Administration Cholecalciferol 5,000 units 08/05/20 21:00 08/15/20 20:28 Cholecalciferol 1,000 Units (25 Mcg) Tab PO 5,000 units HS ALIYAH Administration Cyanocobalamin 1,000 mcg 08/10/20 09:00 08/16/20 08:21 Cyanocobalamin (Vitamin B-12) 1,000 Mcg Tab PO 1,000 mcg DAILY ALIYAH Administration Dexamethasone 2 mg 08/07/20 10:00 08/16/20 08:21 Dexamethasone 4 Mg/Ml Vial SLOW IVP 2 mg Q24HR ALIYAH Administration Doxycycline Hyclate 100 mg 08/09/20 21:00 08/16/20 08:21 Doxycycline 100 Mg Cap PO 100 mg BID ALIYAH Administration Famotidine 20 mg 08/05/20 09:00 08/16/20 08:21 Famotidine 20 Mg Tab PO 20 mg BID ALIYAH Administration Folic Acid 1 mg 08/10/20 09:00 08/16/20 08:21 Folic Acid 1 Mg Tab PO 1 mg DAILY ALIYAH Administration Insulin Glargine 40 units/ 0.4 mls @ 0 mls/hr 08/12/20 21:00 08/15/20 20:29 Miscellaneous Medication SC 0.4 mls HS ALIYAH Administration Insulin Glargine 40 units/ 0.4 mls @ 0 mls/hr 08/13/20 09:00 08/16/20 08:14 Miscellaneous Medication SC 0.4 mls QAM ALIYAH Administration Insulin Human Lispro 0 units 08/05/20 12:18 08/16/20 16:39 Humalog 300 Units/3 Ml Vial SC 9 unit .AGGRESSIVE SLIDING PRN Administration Aggressive Correctional Scale Insulin Human Lispro 0 units 08/05/20 12:18 08/14/20 21:28 Humalog 300 Units/3 Ml Vial SC 5 unit .BEDTIME SLIDING SC PRN Administration Bedtime Correctional Scale Loratadine 10 mg 08/05/20 12:16 08/07/20 09:52 Loratadine 10 Mg Tab PO 10 mg DAILYPRN PRN Administration Sinus Symptoms Mometasone Furoate/Formoterol Fumar 2 puff 08/09/20 18:30 08/16/20 16:36 Mometasone 200 Mcg/Formoterol 5 Mcg 120 Puff Inhaler INH 2 puff BID-RT ALIYAH Administration Nystatin 0 gm 08/05/20 15:14 08/05/20 16:04 Nystatin Powder 15 Gm Bot TOP 1 applic BIDPRN PRN Administration Rash/Topical Irritation Ondansetron HCl 4 mg 08/05/20 04:23 08/09/20 12:05 Ondansetron Pf 4 Mg/2 Ml Vial IVP 4 mg Q6H PRN Administration Nausea/Vomiting use 1st Saccharomyces Boulardii 250 mg 08/05/20 09:00 08/16/20 08:21 Saccharomyces Boulardii 250 Mg Cap PO 250 mg BID ALIYAH Administration Sodium Chloride 10 ml 08/05/20 09:00 08/16/20 08:21 Flush - Normal Saline 10 Ml Syringe IVF 10 ml Q12HR ALIYAH Administration Sodium Chloride 10 ml 08/05/20 06:15 08/09/20 12:05 Flush - Normal Saline 10 Ml Syringe IVF 10 ml PRN PRN Administration Saline Flush Tamsulosin HCl 0.4 mg 08/05/20 09:00 08/16/20 08:21 Tamsulosin Hcl 0.4 Mg Cap PO 0.4 mg DAILY ALIYAH Administration Zinc Sulfate 220 mg 08/06/20 09:00 08/16/20 08:21 Zinc Sulfate 220 Mg Cap PO 220 mg DAILY ALIYAH Administration - Exam General - other findings: Morbidly obese Eye: anicteric sclera ENT: normocephalic atraumatic, no oropharyngeal lesions Neck: supple Heart: RRR, normal peripheral pulses Respiratory: rales, rhonchi Gastrointestinal: soft, non-tender Skin: no rashes Psychiatric: normal affect, normal behavior Hosp A/P - Plan -Assessment COVID-19 pneumonia Acute hypoxic respiratory failure sepsis due to COVID-19 pneumonia, present on admission Diabetes mellitus type 2 Atrial fibrillationrate controlled Hypertension Obesity hypoventilation syndrome Chronic diastolic heart failure Benign prostatic hypertrophy Hyperlipidemia COPD Morbid obesity BMI 49.3 - Plan Treat with high flow oxygen as needed. Patient has completed remdesivir treatment. Continue dexamethasone. atrial fibrillation is rate controlled and stable.. continue Lantus 40 units twice daily. Continue Accu-Cheks and insulin sliding scale.
[2020-08-16] MEDS: Cholecalciferol 1,000 UNITS (25 MCG) TAB PO SCH (20:24)
[2020-08-16] MEDS: Atorvastatin Calcium 40 MG TAB PO SCH (20:30)
[2020-08-17] MEDS: Albuterol 200 PUFF (6.7GM INHALER) INH SCH ×4 (00:48→17:33)
[2020-08-17 05:08] LABS: #Eosinphils 0.1 thou/uL (0.0-0.7); #Lymphocytes 1.7 thou/uL (1.20-3.40); #Monocytes 0.9 thou/uL (0.11-0.59); #Neutrophils 8.9 thou/uL (1.40-6.50); %Basophils 0.2 % (0.0-1.0); %Eosinophils 0.5 % (0.0-10.0); %Lymphocytes 14.9 % (21.0-51.0); %Monocytes 7.6 % (0.0-10.0); %Neutrophils 76.7 % (42.0-75.0); Hemoglobin 13.3 g/dL (14.0-18.0); Mean Corpuscular HGB CONC 32.3 g/dL (32.0-36.0); Mean Corpuscular Hemoglobin 29.1 pg (27.0-31.0); Mean Platelet Volume 10.2 fL (7.4-10.4); Platelet Count 221 thou/uL (130-400); Red Blood Cell (RBC) Count 4.56 mill/uL (4.70-6.10); White Blood Cell (WBC) Count 11.5 thou/uL (4.8-10.8)
[2020-08-17] MEDS: Mometasone 200 MCG/Formoterol 5 MCG 120 PUFF INHALER INH SCH ×2 (05:36→17:33)
[2020-08-17] MEDS: HumaLOG 300 UNITS/3 ML VIAL SC PRN ×3 (05:37→21:11)
[2020-08-17 05:40] LABS: Anion Gap 11 mmol/L (10-20); BUN (Urea Nitrogen) 14 mg/dL (8.4-25.7); Calc. Creatinine Clearance 131 mL/min (70-130); Calcium 8.7 mg/dL (7.8-10.44); Carbon Dioxide 32 mmol/L (23-31); Chloride 97 mmol/L (98-107); Glucose 268 mg/dL (83-110); Potassium 4.2 mmol/L (3.5-5.1); Sodium 136 mmol/L (136-145)
[2020-08-17] MEDS: Insulin Glargine 40 UNITS in Pre-Filled Syringe 1 EACH SC SCH (09:39)
[2020-08-17] MEDS: Famotidine 20 MG TAB PO SCH ×2 (09:41→21:13)
[2020-08-17] MEDS: Carvedilol 25 MG TAB PO SCH ×2 (09:41→17:33)
[2020-08-17] MEDS: Doxycycline 100 MG CAP PO SCH ×2 (09:41→21:12)
[2020-08-17] MEDS: Amlodipine 10 MG TAB PO SCH (09:41)
[2020-08-17] MEDS: Cyanocobalamin (Vitamin B-12) 1,000 MCG TAB PO SCH (09:41)
[2020-08-17] MEDS: Folic Acid 1 MG TAB PO SCH (09:41)
[2020-08-17] MEDS: Allopurinol 100 MG TAB PO SCH (09:41)
[2020-08-17] MEDS: Ascorbic Acid 500 mg Chewable Tablet PO SCH (09:41)
[2020-08-17] MEDS: Apixaban 5 MG TAB PO SCH ×2 (09:41→21:13)
[2020-08-17] MEDS: Dexamethasone 4 mg/ml Vial SLOW IVP SCH (09:42)
[2020-08-17] MEDS: Zinc Sulfate 220 MG CAP PO SCH (09:42)
[2020-08-17] MEDS: Saccharomyces boulardii 250 MG CAP PO SCH ×2 (09:42→21:12)
[2020-08-17] MEDS: Tamsulosin HCl 0.4 MG CAP PO SCH (09:42)
--- NOTE | 2020-08-17 19:13 | PDOC.HOSPP ---
- Subjective Encounter Date: 08/17/20 Encounter Time: 12:00 Subjective: Patient seen for follow-up regarding COVID-19 pneumonia. He reports feeling about the same as yesterday. - Objective Vital Signs & Weight: Vital Signs (12 hours) Temp Pulse Resp BP Pulse Ox 08/17/20 16:25 97.7 F 88 26 H 122/85 96 08/17/20 10:40 97.8 F 77 24 H 110/77 96 08/17/20 08:30 97.8 F 74 24 H 124/58 L 99 Weight Admit Weight 334 lb 1.6 oz Weight 335 lb 8 oz Most Recent Monitor Data Heart Rate from ECG 50 NIBP 159/78 NIBP BP-Mean 105 Respiration from ECG 32 SpO2 93 I&O: 08/16/20 08/17/20 08/18/20 06:59 06:59 06:59 Intake Total 730 1210 600 Output Total 1025 850 825 Balance -295 360 -225 Result Diagrams: 08/17/20 04:59 08/17/20 04:59 Additional Labs: Accuchecks 08/17/20 08/17/20 08/17/20 16:22 10:38 05:40 POC Glucose 149 H 216 H 235 H 08/16/20 20:09 POC Glucose 379 H I reviewed patient's labs and MAR EKG Reviewed by me: Yes (Leona correa on telemetry) Hospitalist ROS - Review of Systems Respiratory: reports: SOB with excertion Gastrointestinal: denies: nausea, vomiting, abdominal pain, diarrhea, c onstipation, melena, hematochezia Genitourinary: denies: dysuria, frequency, incontinence, hematuria, retention - Medication Medications: Active Medications Generic Name Dose Route Start Last Admin Trade Name Freq PRN Reason Stop Dose Admin Albuterol Sulfate 2 puff 08/05/20 13:00 08/17/20 17:33 Albuterol 200 Puff (6.7gm Inhaler) INH 2 puff [id number] ALIYAH Administration Allopurinol 100 mg 08/05/20 09:00 08/17/20 09:41 Allopurinol 100 Mg Tab PO 100 mg DAILY ALIYAH Administration Amlodipine Besylate 10 mg 08/05/20 09:00 08/17/20 09:41 Amlodipine 10 Mg Tab PO 10 mg DAILY ALIYAH Administration Apixaban 5 mg 08/05/20 09:00 08/17/20 09:41 Apixaban 5 Mg Tab PO 5 mg BID ALIYAH Administration Ascorbic Acid 1,000 mg 08/06/20 09:00 08/17/20 09:41 Ascorbic Acid 500 Mg Chewable Tablet PO 1,000 mg DAILY ALIYAH Administration Atorvastatin Calcium 40 mg 08/05/20 21:00 08/16/20 20:30 Atorvastatin Calcium 40 Mg Tab PO 40 mg HS ALIYAH Administration Carvedilol 25 mg 08/05/20 08:00 08/17/20 17:33 Carvedilol 25 Mg Tab PO 25 mg BID-WM ALIYAH Administration Cholecalciferol 5,000 units 08/05/20 21:00 08/16/20 20:24 Cholecalciferol 1,000 Units (25 Mcg) Tab PO 5,000 units HS ALIYAH Administration Cyanocobalamin 1,000 mcg 08/10/20 09:00 08/17/20 09:41 Cyanocobalamin (Vitamin B-12) 1,000 Mcg Tab PO 1,000 mcg DAILY ALIYAH Administration Dexamethasone 2 mg 08/07/20 10:00 08/17/20 09:42 Dexamethasone 4 Mg/Ml Vial SLOW IVP 2 mg Q24HR ALIYAH Administration Doxycycline Hyclate 100 mg 08/09/20 21:00 08/17/20 09:41 Doxycycline 100 Mg Cap PO 100 mg BID ALIYAH Administration Famotidine 20 mg 08/05/20 09:00 08/17/20 09:41 Famotidine 20 Mg Tab PO 20 mg BID ALIYAH Administration Folic Acid 1 mg 08/10/20 09:00 08/17/20 09:41 Folic Acid 1 Mg Tab PO 1 mg DAILY ALIYAH Administration Insulin Glargine 40 units/ 0.4 mls @ 0 mls/hr 08/12/20 21:00 08/16/20 20:25 Miscellaneous Medication SC 0.4 mls HS ALIYAH Administration Insulin Glargine 40 units/ 0.4 mls @ 0 mls/hr 08/13/20 09:00 08/17/20 09:39 Miscellaneous Medication SC 0.4 mls QAM ALIYAH Administration Insulin Human Lispro 0 units 08/05/20 12:18 08/17/20 12:43 Humalog 300 Units/3 Ml Vial SC 6 unit .AGGRESSIVE SLIDING PRN Administration Aggressive Correctional Scale Insulin Human Lispro 0 units 08/05/20 12:18 08/16/20 20:25 Humalog 300 Units/3 Ml Vial SC 5 unit .BEDTIME SLIDING SC PRN Administration Bedtime Correctional Scale Loratadine 10 mg 08/05/20 12:16 08/07/20 09:52 Loratadine 10 Mg Tab PO 10 mg DAILYPRN PRN Administration Sinus Symptoms Mometasone Furoate/Formoterol Fumar 2 puff 08/09/20 18:30 08/17/20 17:33 Mometasone 200 Mcg/Formoterol 5 Mcg 120 Puff Inhaler INH 2 puff BID-RT ALIYAH Administration Nystatin 0 gm 08/05/20 15:14 08/05/20 16:04 Nystatin Powder 15 Gm Bot TOP 1 applic BIDPRN PRN Administration Rash/Topical Irritation Ondansetron HCl 4 mg 08/05/20 04:23 08/09/20 12:05 Ondansetron Pf 4 Mg/2 Ml Vial IVP 4 mg Q6H PRN Administration Nausea/Vomiting use 1st Saccharomyces Boulardii 250 mg 08/05/20 09:00 08/17/20 09:42 Saccharomyces Boulardii 250 Mg Cap PO 250 mg BID ALIYAH Administration Sodium Chloride 10 ml 08/05/20 09:00 08/17/20 09:42 Flush - Normal Saline 10 Ml Syringe IVF 10 ml Q12HR ALIYAH Administration Sodium Chloride 10 ml 08/05/20 06:15 08/09/20 12:05 Flush - Normal Saline 10 Ml Syringe IVF 10 ml PRN PRN Administration Saline Flush Tamsulosin HCl 0.4 mg 08/05/20 09:00 08/17/20 09:42 Tamsulosin Hcl 0.4 Mg Cap PO 0.4 mg DAILY ALIYAH Administration Zinc Sulfate 220 mg 08/06/20 09:00 08/17/20 09:42 Zinc Sulfate 220 Mg Cap PO 220 mg DAILY ALIYAH Administration - Exam Eye: anicteric sclera ENT: moist mucosa Neck: supple Heart: irregular Respiratory: rhonchi Gastrointestinal: soft, non-tender Skin: no rashes Psychiatric: normal affect, normal behavior Hosp A/P - Plan -Assessment COVID-19 pneumonia Acute hypoxic respiratory failure Diabetes mellitus type 2 Atrial fibrillationrate controlled Hypertension Obesity hypoventilation syndrome Chronic diastolic heart failure Benign prostatic hypertrophy Hyperlipidemia COPD Morbid obesity BMI 49.3 sepsis due to COVID-19 pneumonia, present on admission - Plan Patient is on high flow oxygen. Completed remdesivir treatment. Currently receiving dexamethasone. atrial fibrillation is rate controlled and stable.. Blood sugars are high, increase Lantus to 43 units twice daily. Continue Accu-Cheks and insulin sliding scale.
[2020-08-17] MEDS: Cholecalciferol 1,000 UNITS (25 MCG) TAB PO SCH (21:12)
[2020-08-17] MEDS: Atorvastatin Calcium 40 MG TAB PO SCH (21:13)
[2020-08-17] MEDS: Insulin Glargine 43 UNITS in Pre-Filled Syringe 1 EACH SC SCH (21:26)
[2020-08-18] MEDS: Albuterol 200 PUFF (6.7GM INHALER) INH SCH ×4 (01:02→18:14)
[2020-08-18 05:29] LABS: #Eosinphils 0.1 thou/uL (0.0-0.7); #Lymphocytes 1.6 thou/uL (1.20-3.40); #Neutrophils 8.5 thou/uL (1.40-6.50); %Basophils 0.2 % (0.0-1.0); %Lymphocytes 14.2 % (21.0-51.0); %Monocytes 8.7 % (0.0-10.0); %Neutrophils 75.9 % (42.0-75.0); Hemoglobin 13.6 g/dL (14.0-18.0); Mean Corpuscular HGB CONC 31.8 g/dL (32.0-36.0); Mean Corpuscular Hemoglobin 28.6 pg (27.0-31.0); Mean Corpuscular Volume 89.9 fL (78.0-98.0); Mean Platelet Volume 10.3 fL (7.4-10.4); Platelet Count 216 thou/uL (130-400); Red Blood Cell (RBC) Count 4.77 mill/uL (4.70-6.10); White Blood Cell (WBC) Count 11.2 thou/uL (4.8-10.8)
[2020-08-18 05:35] LABS: Anion Gap 15 mmol/L (10-20); BUN (Urea Nitrogen) 11 mg/dL (8.4-25.7); Calc. Creatinine Clearance 149 mL/min (70-130); Calcium 8.8 mg/dL (7.8-10.44); Carbon Dioxide 28 mmol/L (23-31); Chloride 99 mmol/L (98-107); Glucose 145 mg/dL (83-110); Potassium 4.1 mmol/L (3.5-5.1); Sodium 138 mmol/L (136-145)
[2020-08-18] MEDS: Mometasone 200 MCG/Formoterol 5 MCG 120 PUFF INHALER INH SCH ×2 (06:25→16:58)
[2020-08-18] MEDS: Famotidine 20 MG TAB PO SCH ×2 (09:24→20:21)
[2020-08-18] MEDS: Ascorbic Acid 500 mg Chewable Tablet PO SCH (09:24)
[2020-08-18] MEDS: Doxycycline 100 MG CAP PO SCH ×2 (09:24→20:21)
[2020-08-18] MEDS: Carvedilol 25 MG TAB PO SCH ×2 (09:24→16:28)
[2020-08-18] MEDS: Tamsulosin HCl 0.4 MG CAP PO SCH (09:24)
[2020-08-18] MEDS: Cyanocobalamin (Vitamin B-12) 1,000 MCG TAB PO SCH (09:25)
[2020-08-18] MEDS: Zinc Sulfate 220 MG CAP PO SCH (09:25)
[2020-08-18] MEDS: Apixaban 5 MG TAB PO SCH ×2 (09:25→20:21)
[2020-08-18] MEDS: Saccharomyces boulardii 250 MG CAP PO SCH ×2 (09:25→20:21)
[2020-08-18] MEDS: Dexamethasone 4 mg/ml Vial SLOW IVP SCH (09:25)
[2020-08-18] MEDS: Allopurinol 100 MG TAB PO SCH (09:25)
[2020-08-18] MEDS: Amlodipine 10 MG TAB PO SCH (09:25)
[2020-08-18] MEDS: Folic Acid 1 MG TAB PO SCH (09:25)
[2020-08-18] MEDS: Insulin Glargine 43 UNITS in Pre-Filled Syringe 1 EACH SC SCH ×2 (09:28→20:21)
--- NOTE | 2020-08-18 12:13 | PDOC.HOSPP ---
- Subjective Encounter Date: 08/18/20 Encounter Time: 08:30 Subjective: Patient seen for follow-up regarding COVID-19 pneumonia. Denies any complaints. - Objective Vital Signs & Weight: Vital Signs (12 hours) Temp Pulse Resp BP Pulse Ox 08/18/20 12:10 95 08/18/20 09:36 97.8 F 79 20 124/62 95 08/18/20 02:55 97.8 F 79 22 H 130/81 98 Weight Admit Weight 334 lb 1.6 oz Weight 335 lb 8 oz Most Recent Monitor Data Heart Rate from ECG 50 NIBP 159/78 NIBP BP-Mean 105 Respiration from ECG 32 SpO2 93 I&O: 08/17/20 08/18/20 08/19/20 06:59 06:59 06:59 Intake Total 1210 1320 Output Total 850 1575 Balance 360 -255 Result Diagrams: 08/18/20 05:00 08/18/20 05:00 Additional Labs: Accuchecks 08/18/20 08/17/20 08/17/20 06:01 20:30 16:22 POC Glucose 113 H 215 H 149 H Labs and MAR reviewed by me EKG Reviewed by me: Yes (Leona correa on telemetry) Hospitalist ROS - Review of Systems Gastrointestinal: denies: nausea, vomiting, abdominal pain, diarrhea, constipation, melena, hematochezia Genitourinary: denies: dysuria, frequency, incontinence, hematuria, retention - Medication Medications: Active Medications Generic Name Dose Route Start Last Admin Trade Name Freq PRN Reason Stop Dose Admin Albuterol Sulfate 2 puff 08/05/20 13:00 08/18/20 06:25 Albuterol 200 Puff (6.7gm Inhaler) INH 2 puff [id number] ALIYAH Administration Allopurinol 100 mg 08/05/20 09:00 08/18/20 09:25 Allopurinol 100 Mg Tab PO 100 mg DAILY ALIYAH Administration Amlodipine Besylate 10 mg 08/05/20 09:00 08/18/20 09:25 Amlodipine 10 Mg Tab PO 10 mg DAILY ALIYAH Administration Apixaban 5 mg 08/05/20 09:00 08/18/20 09:25 Apixaban 5 Mg Tab PO 5 mg BID ALIYAH Administration Ascorbic Acid 1,000 mg 08/06/20 09:00 08/18/20 09:24 Ascorbic Acid 500 Mg Chewable Tablet PO 1,000 mg DAILY ALIYAH Administration Atorvastatin Calcium 40 mg 08/05/20 21:00 08/17/20 21:13 Atorvastatin Calcium 40 Mg Tab PO 40 mg HS ALIYAH Administration Carvedilol 25 mg 08/05/20 08:00 08/18/20 09:24 Carvedilol 25 Mg Tab PO 25 mg BID-WM ALIYAH Administration Cholecalciferol 5,000 units 08/05/20 21:00 08/17/20 21:12 Cholecalciferol 1,000 Units (25 Mcg) Tab PO 5,000 units HS ALIYAH Administration Cyanocobalamin 1,000 mcg 08/10/20 09:00 08/18/20 09:25 Cyanocobalamin (Vitamin B-12) 1,000 Mcg Tab PO 1,000 mcg DAILY ALIYAH Administration Dexamethasone 2 mg 08/07/20 10:00 08/18/20 09:25 Dexamethasone 4 Mg/Ml Vial SLOW IVP 2 mg Q24HR ALIYAH Administration Doxycycline Hyclate 100 mg 08/09/20 21:00 08/18/20 09:24 Doxycycline 100 Mg Cap PO 100 mg BID ALIYAH Administration Famotidine 20 mg 08/05/20 09:00 08/18/20 09:24 Famotidine 20 Mg Tab PO 20 mg BID ALIYAH Administration Folic Acid 1 mg 08/10/20 09:00 08/18/20 09:25 Folic Acid 1 Mg Tab PO 1 mg DAILY ALIYAH Administration Insulin Glargine 43 units/ 0.43 mls @ 0 mls/hr 08/17/20 21:00 08/17/20 21:26 Miscellaneous Medication SC 0.43 mls HS ALIYAH Administration Insulin Glargine 43 units/ 0.43 mls @ 0 mls/hr 08/18/20 09:00 08/18/20 09:28 Miscellaneous Medication SC 0.43 mls QAM ALIYAH Administration Insulin Human Lispro 0 units 08/05/20 12:18 08/17/20 12:43 Humalog 300 Units/3 Ml Vial SC 6 unit .AGGRESSIVE SLIDING PRN Administration Aggressive Correctional Scale Insulin Human Lispro 0 units 08/05/20 12:18 08/17/20 21:11 Humalog 300 Units/3 Ml Vial SC 2 unit .BEDTIME SLIDING SC PRN Administration Bedtime Correctional Scale Loratadine 10 mg 08/05/20 12:16 08/07/20 09:52 Loratadine 10 Mg Tab PO 10 mg DAILYPRN PRN Administration Sinus Symptoms Mometasone Furoate/Formoterol Fumar 2 puff 08/09/20 18:30 08/18/20 06:25 Mometasone 200 Mcg/Formoterol 5 Mcg 120 Puff Inhaler INH 2 puff BID-RT ALIYAH Administration Nystatin 0 gm 08/05/20 15:14 08/05/20 16:04 Nystatin Powder 15 Gm Bot TOP 1 applic BIDPRN PRN Administration Rash/Topical Irritation Ondansetron HCl 4 mg 08/05/20 04:23 08/09/20 12:05 Ondansetron Pf 4 Mg/2 Ml Vial IVP 4 mg Q6H PRN Administration Nausea/Vomiting use 1st Saccharomyces Boulardii 250 mg 08/05/20 09:00 08/18/20 09:25 Saccharomyces Boulardii 250 Mg Cap PO 250 mg BID ALIYAH Administration Sodium Chloride 10 ml 08/05/20 09:00 08/18/20 09:26 Flush - Normal Saline 10 Ml Syringe IVF 10 ml Q12HR ALIYAH Administration Sodium Chloride 10 ml 08/05/20 06:15 08/09/20 12:05 Flush - Normal Saline 10 Ml Syringe IVF 10 ml PRN PRN Administration Saline Flush Tamsulosin HCl 0.4 mg 08/05/20 09:00 08/18/20 09:24 Tamsulosin Hcl 0.4 Mg Cap PO 0.4 mg DAILY ALIYAH Administration Zinc Sulfate 220 mg 08/06/20 09:00 08/18/20 09:25 Zinc Sulfate 220 Mg Cap PO 220 mg DAILY ALIYAH Administration - Exam General Appearance: awake alert Eye: anicteric sclera ENT: normocephalic atraumatic Neck: supple Heart: irregular Respiratory: CTAB Gastrointestinal: soft, non-tender Skin: no rashes Psychiatric: normal affect, normal behavior Hosp A/P - Plan -Assessment COVID-19 pneumonia Acute hypoxic respiratory failure Diabetes mellitus type 2 Atrial fibrillationrate controlled Hypertension Obesity hypoventilation syndrome Chronic diastolic heart failure Benign prostatic hypertrophy Hyperlipidemia COPD Morbid obesity BMI 49.3 sepsis due to COVID-19 pneumonia, present on admission - Plan Continue high flow oxygen. Completed remdesivir treatment. Continue dexamethasone. atrial fibrillation is rate controlled and stable.. continue Lantus to 43 units twice daily. Continue Accu-Cheks and insulin sliding scale.
[2020-08-18] MEDS: HumaLOG 300 UNITS/3 ML VIAL SC PRN ×2 (12:23→18:10)
[2020-08-18] MEDS: Cholecalciferol 1,000 UNITS (25 MCG) TAB PO SCH (20:21)
[2020-08-18] MEDS: Atorvastatin Calcium 40 MG TAB PO SCH (20:21)
[2020-08-19] MEDS: Albuterol 200 PUFF (6.7GM INHALER) INH SCH ×4 (01:11→17:17)
[2020-08-19] MEDS: Mometasone 200 MCG/Formoterol 5 MCG 120 PUFF INHALER INH SCH ×2 (07:12→17:17)
[2020-08-19] MEDS: Carvedilol 25 MG TAB PO SCH ×2 (09:07→17:18)
[2020-08-19] MEDS: Saccharomyces boulardii 250 MG CAP PO SCH ×2 (09:07→20:05)
[2020-08-19] MEDS: Allopurinol 100 MG TAB PO SCH (09:07)
[2020-08-19] MEDS: Doxycycline 100 MG CAP PO SCH ×2 (09:07→20:05)
[2020-08-19] MEDS: Tamsulosin HCl 0.4 MG CAP PO SCH (09:07)
[2020-08-19] MEDS: Apixaban 5 MG TAB PO SCH ×2 (09:07→20:05)
[2020-08-19] MEDS: Famotidine 20 MG TAB PO SCH ×2 (09:07→20:06)
[2020-08-19] MEDS: Zinc Sulfate 220 MG CAP PO SCH (09:08)
[2020-08-19] MEDS: Ascorbic Acid 500 mg Chewable Tablet PO SCH (09:08)
[2020-08-19] MEDS: Cyanocobalamin (Vitamin B-12) 1,000 MCG TAB PO SCH (09:08)
[2020-08-19] MEDS: Folic Acid 1 MG TAB PO SCH (09:08)
[2020-08-19] MEDS: Amlodipine 10 MG TAB PO SCH (09:08)
[2020-08-19] MEDS: Dexamethasone 4 mg/ml Vial SLOW IVP SCH (09:09)
[2020-08-19] MEDS: Insulin Glargine 43 UNITS in Pre-Filled Syringe 1 EACH SC SCH ×2 (09:10→20:26)
--- NOTE | 2020-08-19 14:13 | PDOC.HOSPP ---
- Subjective Encounter Date: 08/19/20 Encounter Time: 09:00 Subjective: Patient seen for follow-up regarding COVID-19 infection. Denies chest pain or shortness of breath. - Objective Vital Signs & Weight: Vital Signs (12 hours) Temp Pulse Resp BP Pulse Ox 08/19/20 09:24 97.9 F 88 20 124/71 94 L 08/19/20 09:12 98 08/19/20 04:30 97.5 F L 76 20 136/87 98 Weight Admit Weight 334 lb 1.6 oz Weight 335 lb 8 oz Most Recent Monitor Data Heart Rate from ECG 50 NIBP 159/78 NIBP BP-Mean 105 Respiration from ECG 32 SpO2 93 I&O: 08/18/20 08/19/20 08/20/20 06:59 06:59 06:59 Intake Total 1320 1434 Output Total 1575 1825 350 Balance -263 -391 -350 Result Diagrams: 08/18/20 05:00 08/18/20 05:00 Additional Labs: Accuchecks 08/19/20 08/19/20 08/18/20 11:35 07:02 20:40 POC Glucose 132 H 96 304 H 08/18/20 17:53 POC Glucose 219 H I reviewed patient's labs and MAR EKG Reviewed by me: Yes (Atrial fibrillation) Hospitalist ROS - Review of Systems Cardiovascular: denies: chest pain, palpitations, orthopnea, paroxysmal noc. dyspnea, edema, light headedness Gastrointestinal: denies: nausea, vomiting, abdominal pain, diarrhea, constipation, melena, hematochezia - Medication Medications: Active Medications Generic Name Dose Route Start Last Admin Trade Name Tommyq PRN Reason Stop Dose Admin Albuterol Sulfate 2 puff 08/05/20 13:00 08/19/20 14:01 Albuterol 200 Puff (6.7gm Inhaler) INH 2 puff [id number] ALIYAH Administration Allopurinol 100 mg 08/05/20 09:00 08/19/20 09:07 Allopurinol 100 Mg Tab PO 100 mg DAILY ALIYAH Administration Amlodipine Besylate 10 mg 08/05/20 09:00 08/19/20 09:08 Amlodipine 10 Mg Tab PO 10 mg DAILY ALIYAH Administration Apixaban 5 mg 08/05/20 09:00 08/19/20 09:07 Apixaban 5 Mg Tab PO 5 mg BID ALIYAH Administration Ascorbic Acid 1,000 mg 08/06/20 09:00 08/19/20 09:08 Ascorbic Acid 500 Mg Chewable Tablet PO 1,000 mg DAILY ALIYAH Administration Atorvastatin Calcium 40 mg 08/05/20 21:00 08/18/20 20:21 Atorvastatin Calcium 40 Mg Tab PO 40 mg HS ALIYAH Administration Carvedilol 25 mg 08/05/20 08:00 08/19/20 09:07 Carvedilol 25 Mg Tab PO 25 mg BID-WM ALIYAH Administration Cholecalciferol 5,000 units 08/05/20 21:00 08/18/20 20:21 Cholecalciferol 1,000 Units (25 Mcg) Tab PO 5,000 units HS ALIYAH Administration Cyanocobalamin 1,000 mcg 08/10/20 09:00 08/19/20 09:08 Cyanocobalamin (Vitamin B-12) 1,000 Mcg Tab PO 1,000 mcg DAILY ALIYAH Administration Dexamethasone 2 mg 08/07/20 10:00 08/19/20 09:09 Dexamethasone 4 Mg/Ml Vial SLOW IVP 2 mg Q24HR ALIYAH Administration Doxycycline Hyclate 100 mg 08/09/20 21:00 08/19/20 09:07 Doxycycline 100 Mg Cap PO 100 mg BID ALIYAH Administration Famotidine 20 mg 08/05/20 09:00 08/19/20 09:07 Famotidine 20 Mg Tab PO 20 mg BID ALIYAH Administration Folic Acid 1 mg 08/10/20 09:00 08/19/20 09:08 Folic Acid 1 Mg Tab PO 1 mg DAILY ALIYAH Administration Insulin Glargine 43 units/ 0.43 mls @ 0 mls/hr 08/17/20 21:00 08/18/20 20:21 Miscellaneous Medication SC 0.43 mls HS ALIYAH Administration Insulin Glargine 43 units/ 0.43 mls @ 0 mls/hr 08/18/20 09:00 08/19/20 09:10 Miscellaneous Medication SC 0.43 mls QAM ALIYAH Administration Insulin Human Lispro 0 units 08/05/20 12:18 08/18/20 18:10 Humalog 300 Units/3 Ml Vial SC 6 unit .AGGRESSIVE SLIDING PRN Administration Aggressive Correctional Scale Insulin Human Lispro 0 units 08/05/20 12:18 08/17/20 21:11 Humalog 300 Units/3 Ml Vial SC 2 unit .BEDTIME SLIDING SC PRN Administration Bedtime Correctional Scale Loratadine 10 mg 08/05/20 12:16 08/07/20 09:52 Loratadine 10 Mg Tab PO 10 mg DAILYPRN PRN Administration Sinus Symptoms Mometasone Furoate/Formoterol Fumar 2 puff 08/09/20 18:30 08/19/20 07:12 Mometasone 200 Mcg/Formoterol 5 Mcg 120 Puff Inhaler INH 2 puff BID-RT ALIYAH Administration Nystatin 0 gm 08/05/20 15:14 08/05/20 16:04 Nystatin Powder 15 Gm Bot TOP 1 applic BIDPRN PRN Administration Rash/Topical Irritation Ondansetron HCl 4 mg 08/05/20 04:23 08/09/20 12:05 Ondansetron Pf 4 Mg/2 Ml Vial IVP 4 mg Q6H PRN Administration Nausea/Vomiting use 1st Ondansetron HCl 4 mg 08/05/20 12:16 08/19/20 14:02 Ondansetron Odt 4 Mg Tab SL 4 mg Q6H PRN Administration Nausea/Vomiting Saccharomyces Boulardii 250 mg 08/05/20 09:00 08/19/20 09:07 Saccharomyces Boulardii 250 Mg Cap PO 250 mg BID ALIYAH Administration Sodium Chloride 10 ml 08/05/20 09:00 08/19/20 09:09 Flush - Normal Saline 10 Ml Syringe IVF 10 ml Q12HR ALIYAH Administration Sodium Chloride 10 ml 08/05/20 06:15 08/09/20 12:05 Flush - Normal Saline 10 Ml Syringe IVF 10 ml PRN PRN Administration Saline Flush Tamsulosin HCl 0.4 mg 08/05/20 09:00 08/19/20 09:07 Tamsulosin Hcl 0.4 Mg Cap PO 0.4 mg DAILY ALIYAH Administration Zinc Sulfate 220 mg 08/06/20 09:00 08/19/20 09:08 Zinc Sulfate 220 Mg Cap PO 220 mg DAILY ALIYAH Administration - Exam General - other findings: Morbid obesity Neck: no JVD, no lymphadenopathy Heart: no rubs, irregular Respiratory: CTAB Gastrointestinal: soft, non-tender Skin: no rashes Psychiatric: normal affect, normal behavior Hosp A/P - Plan -Assessment COVID-19 pneumonia Acute hypoxic respiratory failure Diabetes mellitus type 2 Atrial fibrillationrate controlled Hypertension Obesity hypoventilation syndrome Chronic diastolic heart failure Benign prostatic hypertrophy Hyperlipidemia COPD Morbid obesity BMI 49.3 sepsis due to COVID-19 pneumonia, present on admission - Plan Try to wean patient off of high flow oxygen and transition to oxygen by nasal cannula. Completed remdesivir treatment. Continue dexamethasone for now. atrial fibrillation is rate controlled and stable.. continue Lantus 43 units twice daily. Continue Accu-Cheks and insulin sliding scale.
[2020-08-19] MEDS: HumaLOG 300 UNITS/3 ML VIAL SC PRN ×2 (17:19→20:27)
[2020-08-19] MEDS: Cholecalciferol 1,000 UNITS (25 MCG) TAB PO SCH (20:05)
[2020-08-19] MEDS: Atorvastatin Calcium 40 MG TAB PO SCH (20:06)
[2020-08-20] MEDS: Albuterol 200 PUFF (6.7GM INHALER) INH SCH ×4 (01:41→18:02)
[2020-08-20] MEDS: Mometasone 200 MCG/Formoterol 5 MCG 120 PUFF INHALER INH SCH ×2 (05:56→17:43)
--- NOTE | 2020-08-20 07:29 | PDOC.HOSPP ---
- Subjective Encounter Date: 08/20/20 Encounter Time: 09:30 Subjective: Patient needing to have a bowel movement and waiting on nurse to bring bed tubbs. States his breathing is much improved. He has been on NC O2 at 4L since yesterday. - Objective Vital Signs & Weight: Vital Signs (12 hours) Temp Pulse Resp BP Pulse Ox 08/20/20 04:46 97.9 F 85 23 H 112/72 97 08/20/20 00:15 97.7 F 85 22 H 140/76 99 08/19/20 20:05 97.8 F 78 18 137/78 Weight Admit Weight 334 lb 1.6 oz Weight 335 lb 8 oz Most Recent Monitor Data Heart Rate from ECG 50 NIBP 159/78 NIBP BP-Mean 105 Respiration from ECG 32 SpO2 93 I&O: 08/19/20 08/20/20 08/21/20 06:59 06:59 06:59 Intake Total 1434 800 Output Total 1825 675 Balance -391 125 Result Diagrams: 08/18/20 05:00 08/18/20 05:00 Additional Labs: Accuchecks 08/20/20 08/19/20 08/19/20 05:18 20:13 17:22 POC Glucose 127 H 225 H 182 H 08/19/20 11:35 POC Glucose 132 H Hospitalist ROS - Review of Systems Constitutional: denies: fever, chills Respiratory: reports: shortness of breath. denies: cough Cardiovascular: denies: chest pain, palpitations Gastrointestinal: denies: nausea, vomiting, abdominal pain - Medication Medications: Active Medications Generic Name Dose Route Start Last Admin Trade Name Freq PRN Reason Stop Dose Admin Albuterol Sulfate 2 puff 08/05/20 13:00 08/20/20 01:41 Albuterol 200 Puff (6.7gm Inhaler) INH 2 puff [id number] ALIYAH Administration Allopurinol 100 mg 08/05/20 09:00 08/19/20 09:07 Allopurinol 100 Mg Tab PO 100 mg DAILY ALIYAH Administration Amlodipine Besylate 10 mg 08/05/20 09:00 08/19/20 09:08 Amlodipine 10 Mg Tab PO 10 mg DAILY ALIYAH Administration Apixaban 5 mg 08/05/20 09:00 08/19/20 20:05 Apixaban 5 Mg Tab PO 5 mg BID ALIYAH Administration Ascorbic Acid 1,000 mg 08/06/20 09:00 08/19/20 09:08 Ascorbic Acid 500 Mg Chewable Tablet PO 1,000 mg DAILY ALIYAH Administration Atorvastatin Calcium 40 mg 08/05/20 21:00 08/19/20 20:06 Atorvastatin Calcium 40 Mg Tab PO 40 mg HS ALIYAH Administration Carvedilol 25 mg 08/05/20 08:00 08/19/20 17:18 Carvedilol 25 Mg Tab PO 25 mg BID-WM ALIYAH Administration Cholecalciferol 5,000 units 08/05/20 21:00 08/19/20 20:05 Cholecalciferol 1,000 Units (25 Mcg) Tab PO 5,000 units HS ALIYAH Administration Cyanocobalamin 1,000 mcg 08/10/20 09:00 08/19/20 09:08 Cyanocobalamin (Vitamin B-12) 1,000 Mcg Tab PO 1,000 mcg DAILY ALIYAH Administration Dexamethasone 2 mg 08/07/20 10:00 08/19/20 09:09 Dexamethasone 4 Mg/Ml Vial SLOW IVP 2 mg Q24HR ALIYAH Administration Famotidine 20 mg 08/05/20 09:00 08/19/20 20:06 Famotidine 20 Mg Tab PO 20 mg BID ALIYAH Administration Folic Acid 1 mg 08/10/20 09:00 08/19/20 09:08 Folic Acid 1 Mg Tab PO 1 mg DAILY ALIYAH Administration Insulin Glargine 43 units/ 0.43 mls @ 0 mls/hr 08/17/20 21:00 08/19/20 20:26 Miscellaneous Medication SC 0.43 mls HS ALIYAH Administration Insulin Glargine 43 units/ 0.43 mls @ 0 mls/hr 08/18/20 09:00 08/19/20 09:10 Miscellaneous Medication SC 0.43 mls QAM ALIYAH Administration Insulin Human Lispro 0 units 08/05/20 12:18 08/19/20 17:19 Humalog 300 Units/3 Ml Vial SC 3 unit .AGGRESSIVE SLIDING PRN Administration Aggressive Correctional Scale Insulin Human Lispro 0 units 08/05/20 12:18 08/19/20 20:27 Humalog 300 Units/3 Ml Vial SC 2 unit .BEDTIME SLIDING SC PRN Administration Bedtime Correctional Scale Loratadine 10 mg 08/05/20 12:16 08/07/20 09:52 Loratadine 10 Mg Tab PO 10 mg DAILYPRN PRN Administration Sinus Symptoms Mometasone Furoate/Formoterol Fumar 2 puff 08/09/20 18:30 08/20/20 05:56 Mometasone 200 Mcg/Formoterol 5 Mcg 120 Puff Inhaler INH 2 puff BID-RT ALIYAH Administration Nystatin 0 gm 08/05/20 15:14 08/05/20 16:04 Nystatin Powder 15 Gm Bot TOP 1 applic BIDPRN PRN Administration Rash/Topical Irritation Ondansetron HCl 4 mg 08/05/20 04:23 08/09/20 12:05 Ondansetron Pf 4 Mg/2 Ml Vial IVP 4 mg Q6H PRN Administration Nausea/Vomiting use 1st Ondansetron HCl 4 mg 08/05/20 12:16 08/19/20 14:02 Ondansetron Odt 4 Mg Tab SL 4 mg Q6H PRN Administration Nausea/Vomiting Saccharomyces Boulardii 250 mg 08/05/20 09:00 08/19/20 20:05 Saccharomyces Boulardii 250 Mg Cap PO 250 mg BID ALIYAH Administration Sodium Chloride 10 ml 08/05/20 09:00 08/19/20 20:07 Flush - Normal Saline 10 Ml Syringe IVF 10 ml Q12HR ALIYAH Administration Sodium Chloride 10 ml 08/05/20 06:15 08/09/20 12:05 Flush - Normal Saline 10 Ml Syringe IVF 10 ml PRN PRN Administration Saline Flush Tamsulosin HCl 0.4 mg 08/05/20 09:00 08/19/20 09:07 Tamsulosin Hcl 0.4 Mg Cap PO 0.4 mg DAILY ALIYAH Administration Zinc Sulfate 220 mg 08/06/20 09:00 08/19/20 09:08 Zinc Sulfate 220 Mg Cap PO 220 mg DAILY ALIYAH Administration - Exam General Appearance: NAD, awake alert ENT: moist mucosa Heart: RRR, no murmur, no gallops, no rubs Respiratory: CTAB, no wheezes, no rales, no ronchi Gastrointestinal: soft, non-tender, non-distended, normal bowel sounds Psychiatric: normal affect, normal behavior, A&O x 3 Hosp A/P - Plan COVID-19 pneumonia Acute hypoxic respiratory failure Diabetes mellitus type 2 Atrial fibrillationrate controlled Hypertension Obesity hypoventilation syndrome Chronic diastolic heart failure Benign prostatic hypertrophy Hyperlipidemia COPD Morbid obesity BMI 49.3 sepsis due to COVID-19 pneumonia, present on admission - Plan Patient transitioned to nasal cannula from high flow yesterday, currently on 4L NC. Completed remdesivir treatment. Continue dexamethasone for now, low dose, can likely d/c soon atrial fibrillation is rate controlled and stable.. continue Lantus 43 units twice daily. Continue Accu-Cheks and insulin sliding scale. Patient really needs SNF placement if can stay off the high flow O2, but previously refusing. HH if not willing to go.
[2020-08-20] MEDS: Insulin Glargine 43 UNITS in Pre-Filled Syringe 1 EACH SC SCH ×2 (10:28→20:56)
[2020-08-20] MEDS: Carvedilol 25 MG TAB PO SCH ×2 (10:29→17:42)
[2020-08-20] MEDS: Famotidine 20 MG TAB PO SCH ×2 (10:29→20:55)
[2020-08-20] MEDS: Tamsulosin HCl 0.4 MG CAP PO SCH (10:29)
[2020-08-20] MEDS: Apixaban 5 MG TAB PO SCH ×2 (10:29→20:55)
[2020-08-20] MEDS: Folic Acid 1 MG TAB PO SCH (10:30)
[2020-08-20] MEDS: Allopurinol 100 MG TAB PO SCH (10:30)
[2020-08-20] MEDS: Cyanocobalamin (Vitamin B-12) 1,000 MCG TAB PO SCH (10:30)
[2020-08-20] MEDS: Ascorbic Acid 500 mg Chewable Tablet PO SCH (10:30)
[2020-08-20] MEDS: Saccharomyces boulardii 250 MG CAP PO SCH ×2 (10:30→20:55)
[2020-08-20] MEDS: Zinc Sulfate 220 MG CAP PO SCH (10:31)
[2020-08-20] MEDS: Amlodipine 10 MG TAB PO SCH (10:31)
[2020-08-20] MEDS: Dexamethasone 4 mg/ml Vial SLOW IVP SCH (10:34)
[2020-08-20] MEDS: HumaLOG 300 UNITS/3 ML VIAL SC PRN ×2 (12:50→17:45)
--- NOTE | 2020-08-20 12:57 | PDOC.FMACP ---
Advance Care Planning - Problem (1) Acute respiratory failure with hypoxia Status: Acute Code(s): J96.01 - ACUTE RESPIRATORY FAILURE WITH HYPOXIA (2) Pneumonia due to 2019-nCoV Status: Acute Code(s): U07.1 - COVID-19; J12.89 - OTHER VIRAL PNEUMONIA (3) Palliative care encounter Status: Acute Code(s): Z51.5 - ENCOUNTER FOR PALLIATIVE CARE (4) Physical deconditioning Status: Acute Code(s): R53.81 - OTHER MALAISE (5) Atrial fibrillation Status: Chronic Code(s): I48.91 - UNSPECIFIED ATRIAL FIBRILLATION Qualifiers: Atrial fibrillation type: paroxysmal Qualified Code(s): I48.0 - Paroxysmal atrial fibrillation (6) CHF (congestive heart failure) Status: Chronic Code(s): I50.9 - HEART FAILURE, UNSPECIFIED Qualifiers: Heart failure type: diastolic Heart failure chronicity: chronic Qualified Code(s): I50.32 - Chronic diastolic (congestive) heart failure (7) COPD (chronic obstructive pulmonary disease) Status: Chronic Qualifiers: Chronic bronchitis type: unspecified (8) Diabetes mellitus Status: Chronic Code(s): E11.9 - TYPE 2 DIABETES MELLITUS WITHOUT COMPLICATIONS Qualifiers: Diabetes mellitus type: type 2 Diabetes mellitus senior care insulin use: with terminal press operator use Diabetes mellitus complication status: with hyperglycemia Qualified Code(s): E11.65 - Type 2 diabetes mellitus with hyperglycemia; Z79.4 - terminal press operator (current) use of insulin - Note Participants: patient, palliative care Summary: Revisited Advanced Care Planning. The diagnosis, prognosis and goals of care were discussed. Appropriate forms and documentation to accomplish the goals of care were discussed. All questions were answered. *Confirmed DNAR status *MPOA and Directives complete *Refusing rehab/skilled despite declining functional status *Consideration for home with home health and supplemental O2 (Transitioned to Nasal cannula from high flow). Consideration may be given to a home health with a hospice component for in the future if patient continues to decline and desire to seek care through comfort rather than aggressive measures. Please also refer to Palliative Care notes in note section. Palliative Care will sign off as patient goal is to return to the home setting. Please reconsult our team if we can assist in the future in readdressing goal of care, complex decision making, prognosis disease assist, support/coping or revisiting directives/resuscitation status. Time Spent (mins): 20
[2020-08-20] MEDS: Cholecalciferol 1,000 UNITS (25 MCG) TAB PO SCH (20:55)
[2020-08-20] MEDS: Atorvastatin Calcium 40 MG TAB PO SCH (20:55)
[2020-08-21] MEDS: Albuterol 200 PUFF (6.7GM INHALER) INH SCH ×4 (00:49→18:12)
[2020-08-21 05:16] LABS: #Eosinphils 0.1 thou/uL (0.0-0.7); #Lymphocytes 1.7 thou/uL (1.20-3.40); #Monocytes 0.7 thou/uL (0.11-0.59); #Neutrophils 8.7 thou/uL (1.40-6.50); %Basophils 0.1 % (0.0-1.0); %Eosinophils 0.5 % (0.0-10.0); %Lymphocytes 15.1 % (21.0-51.0); %Monocytes 6.6 % (0.0-10.0); %Neutrophils 77.8 % (42.0-75.0); Hemoglobin 14.1 g/dL (14.0-18.0); Mean Corpuscular Hemoglobin 29.4 pg (27.0-31.0); Mean Corpuscular Volume 91.8 fL (78.0-98.0); Mean Platelet Volume 10.3 fL (7.4-10.4); Platelet Count 213 thou/uL (130-400); White Blood Cell (WBC) Count 11.2 thou/uL (4.8-10.8)
[2020-08-21 05:29] LABS: Anion Gap 12 mmol/L (10-20); BUN (Urea Nitrogen) 16 mg/dL (8.4-25.7); Calc. Creatinine Clearance 147 mL/min (70-130); Calcium 8.7 mg/dL (7.8-10.44); Carbon Dioxide 30 mmol/L (23-31); Chloride 97 mmol/L (98-107); Glucose 138 mg/dL (83-110); Potassium 4.4 mmol/L (3.5-5.1); Sodium 135 mmol/L (136-145)
[2020-08-21] MEDS: Mometasone 200 MCG/Formoterol 5 MCG 120 PUFF INHALER INH SCH ×2 (06:22→18:12)
--- NOTE | 2020-08-21 07:30 | PDOC.HOSPP ---
- Subjective Encounter Date: 08/21/20 Encounter Time: 08:45 Subjective: Patient feeling much better. Still quite weak. Patient refusing SNF/rehab placement when he goes. States that he has 2 nurses that come in, lives with daughter and grandson who can help him get around and that he will do fine at home. - Objective Vital Signs & Weight: Vital Signs (12 hours) Temp Pulse Resp BP Pulse Ox 08/21/20 03:49 97.4 F L 77 22 H 165/88 H 97 08/20/20 23:51 81 20 96 08/20/20 20:06 97.9 F 93 24 H 136/74 96 Weight Admit Weight 334 lb 1.6 oz Weight 335 lb 8 oz Most Recent Monitor Data Heart Rate from ECG 50 NIBP 159/78 NIBP BP-Mean 105 Respiration from ECG 32 SpO2 93 I&O: 08/20/20 08/21/20 08/22/20 06:59 06:59 06:59 Intake Total 800 1160 Output Total 675 350 Balance 125 810 Result Diagrams: 08/21/20 04:35 08/21/20 04:35 Additional Labs: Accuchecks 08/20/20 08/20/20 08/20/20 20:47 17:34 11:26 POC Glucose 210 H 187 H 179 H Hospitalist ROS - Review of Systems Constitutional: reports: weakness. denies: fever, chills Respiratory: reports: SOB with excertion. denies: cough, shortness of breath Cardiovascular: denies: chest pain, palpitations Gastrointestinal: denies: nausea, vomiting, abdominal pain - Medication Medications: Active Medications Generic Name Dose Route Start Last Admin Trade Name Lizzie PRN Reason Stop Dose Admin Albuterol Sulfate 2 puff 08/05/20 13:00 08/21/20 06:22 Albuterol 200 Puff (6.7gm Inhaler) INH 2 puff [id number] ALIYAH Administration Allopurinol 100 mg 08/05/20 09:00 08/20/20 10:30 Allopurinol 100 Mg Tab PO 100 mg DAILY ALIYAH Administration Amlodipine Besylate 10 mg 08/05/20 09:00 08/20/20 10:31 Amlodipine 10 Mg Tab PO 10 mg DAILY ALIYAH Administration Apixaban 5 mg 08/05/20 09:00 08/20/20 20:55 Apixaban 5 Mg Tab PO 5 mg BID ALIYAH Administration Ascorbic Acid 1,000 mg 08/06/20 09:00 08/20/20 10:30 Ascorbic Acid 500 Mg Chewable Tablet PO 1,000 mg DAILY ALIYAH Administration Atorvastatin Calcium 40 mg 08/05/20 21:00 08/20/20 20:55 Atorvastatin Calcium 40 Mg Tab PO 40 mg HS ALIYAH Administration Carvedilol 25 mg 08/05/20 08:00 08/20/20 17:42 Carvedilol 25 Mg Tab PO 25 mg BID-WM ALIYAH Administration Cholecalciferol 5,000 units 08/05/20 21:00 08/20/20 20:55 Cholecalciferol 1,000 Units (25 Mcg) Tab PO 5,000 units HS ALIYAH Administration Cyanocobalamin 1,000 mcg 08/10/20 09:00 08/20/20 10:30 Cyanocobalamin (Vitamin B-12) 1,000 Mcg Tab PO 1,000 mcg DAILY ALIYAH Administration Dexamethasone 2 mg 08/07/20 10:00 08/20/20 10:34 Dexamethasone 4 Mg/Ml Vial SLOW IVP 2 mg Q24HR ALIYAH Administration Famotidine 20 mg 08/05/20 09:00 08/20/20 20:55 Famotidine 20 Mg Tab PO 20 mg BID ALIYAH Administration Folic Acid 1 mg 08/10/20 09:00 08/20/20 10:30 Folic Acid 1 Mg Tab PO 1 mg DAILY ALIYAH Administration Insulin Glargine 43 units/ 0.43 mls @ 0 mls/hr 08/17/20 21:00 08/20/20 20:56 Miscellaneous Medication SC 0.43 mls HS ALIYAH Administration Insulin Glargine 43 units/ 0.43 mls @ 0 mls/hr 08/18/20 09:00 08/20/20 10:28 Miscellaneous Medication SC 0.43 mls QAM ALIYAH Administration Insulin Human Lispro 0 units 08/05/20 12:18 08/20/20 17:45 Humalog 300 Units/3 Ml Vial SC 3 unit .AGGRESSIVE SLIDING PRN Administration Aggressive Correctional Scale Insulin Human Lispro 0 units 08/05/20 12:18 08/19/20 20:27 Humalog 300 Units/3 Ml Vial SC 2 unit .BEDTIME SLIDING SC PRN Administration Bedtime Correctional Scale Loratadine 10 mg 08/05/20 12:16 12/08/20 09:52 Loratadine 10 Mg Tab PO 10 mg DAILYPRN PRN Administration Sinus Symptoms Mometasone Furoate/Formoterol Fumar 2 puff 08/09/20 18:30 08/21/20 06:22 Mometasone 200 Mcg/Formoterol 5 Mcg 120 Puff Inhaler INH 2 puff BID-RT ALIYAH Administration Nystatin 0 gm 08/05/20 15:14 08/05/20 16:04 Nystatin Powder 15 Gm Bot TOP 1 applic BIDPRN PRN Administration Rash/Topical Irritation Ondansetron HCl 4 mg 08/05/20 04:23 08/09/20 12:05 Ondansetron Pf 4 Mg/2 Ml Vial IVP 4 mg Q6H PRN Administration Nausea/Vomiting use 1st Ondansetron HCl 4 mg 08/05/20 12:16 08/19/20 14:02 Ondansetron Odt 4 Mg Tab SL 4 mg Q6H PRN Administration Nausea/Vomiting Saccharomyces Boulardii 250 mg 08/05/20 09:00 08/20/20 20:55 Saccharomyces Boulardii 250 Mg Cap PO 250 mg BID ALIYAH Administration Sodium Chloride 10 ml 08/05/20 09:00 08/20/20 20:58 Flush - Normal Saline 10 Ml Syringe IVF 10 ml Q12HR ALIYAH Administration Sodium Chloride 10 ml 08/05/20 06:15 08/09/20 12:05 Flush - Normal Saline 10 Ml Syringe IVF 10 ml PRN PRN Administration Saline Flush Tamsulosin HCl 0.4 mg 08/05/20 09:00 08/20/20 10:29 Tamsulosin Hcl 0.4 Mg Cap PO 0.4 mg DAILY ALIYAH Administration Zinc Sulfate 220 mg 08/06/20 09:00 08/20/20 10:31 Zinc Sulfate 220 Mg Cap PO 220 mg DAILY ALIYAH Administration - Exam General Appearance: NAD, awake alert ENT: moist mucosa Heart: RRR, no murmur, no gallops, no rubs Respiratory: CTAB, no wheezes, no rales, no ronchi Gastrointestinal: soft, non-tender, non-distended, normal bowel sounds Extremities: no edema Psychiatric: normal affect, normal behavior, A&O x 3 Hosp A/P - Plan COVID-19 pneumonia Acute hypoxic respiratory failure Diabetes mellitus type 2 Atrial fibrillationrate controlled Hypertension Obesity hypoventilation syndrome Chronic diastolic heart failure Benign prostatic hypertrophy Hyperlipidemia COPD Morbid obesity BMI 49.3 sepsis due to COVID-19 pneumonia, present on admission - Plan Patient transitioned to nasal cannula from high flow, now doing well on 3.5L NC. Completed remdesivir treatment. Continue dexamethasone for now, low dose, can likely d/c soon atrial fibrillation is rate controlled and stable. On Eliquis. continue Lantus 43 units twice daily. Continue Accu-Cheks and insulin sliding scale. Patient really needs SNF placement if can stay off the high flow O2, but refusing. for PT/OT if not willing to go. May be able to d/c in next 1-2 days on home oxygen. Patient had 2L O2 at home for night only prior to coming in the hospital.
[2020-08-21] MEDS: Allopurinol 100 MG TAB PO SCH (10:20)
[2020-08-21] MEDS: Zinc Sulfate 220 MG CAP PO SCH (10:20)
[2020-08-21] MEDS: Amlodipine 10 MG TAB PO SCH (10:20)
[2020-08-21] MEDS: Famotidine 20 MG TAB PO SCH ×2 (10:20→20:58)
[2020-08-21] MEDS: Apixaban 5 MG TAB PO SCH ×2 (10:21→20:58)
[2020-08-21] MEDS: Ascorbic Acid 500 mg Chewable Tablet PO SCH (10:21)
[2020-08-21] MEDS: Cyanocobalamin (Vitamin B-12) 1,000 MCG TAB PO SCH (10:21)
[2020-08-21] MEDS: Tamsulosin HCl 0.4 MG CAP PO SCH (10:21)
[2020-08-21] MEDS: Folic Acid 1 MG TAB PO SCH (10:21)
[2020-08-21] MEDS: Saccharomyces boulardii 250 MG CAP PO SCH ×2 (10:21→20:59)
[2020-08-21] MEDS: Carvedilol 25 MG TAB PO SCH ×2 (10:22→16:36)
[2020-08-21] MEDS: Dexamethasone 4 mg/ml Vial SLOW IVP SCH (10:22)
[2020-08-21] MEDS: Insulin Glargine 43 UNITS in Pre-Filled Syringe 1 EACH SC SCH ×2 (10:22→20:55)
[2020-08-21] MEDS: HumaLOG 300 UNITS/3 ML VIAL SC PRN ×3 (12:52→20:57)
[2020-08-21] MEDS: Nystatin Powder 15 GM BOT TOP PRN (16:32)
[2020-08-21] MEDS: Cholecalciferol 1,000 UNITS (25 MCG) TAB PO SCH (20:57)
[2020-08-21] MEDS: Atorvastatin Calcium 40 MG TAB PO SCH (20:58)
[2020-08-22] MEDS: Albuterol 200 PUFF (6.7GM INHALER) INH SCH ×4 (03:03→18:08)
[2020-08-22 05:39] LABS: #Lymphocytes 1.2 thou/uL (1.20-3.40); #Monocytes 0.8 thou/uL (0.11-0.59); #Neutrophils 7.6 thou/uL (1.40-6.50); %Basophils 0.2 % (0.0-1.0); %Eosinophils 0.5 % (0.0-10.0); %Lymphocytes 12.5 % (21.0-51.0); %Monocytes 7.8 % (0.0-10.0); %Neutrophils 78.9 % (42.0-75.0); Mean Corpuscular HGB CONC 32.2 g/dL (32.0-36.0); Mean Corpuscular Hemoglobin 29.3 pg (27.0-31.0); Mean Corpuscular Volume 90.9 fL (78.0-98.0); Mean Platelet Volume 10.1 fL (7.4-10.4); Platelet Count 209 thou/uL (130-400); RBC Distribution Width 12.9 % (11.5-14.5); Red Blood Cell (RBC) Count 4.77 mill/uL (4.70-6.10); White Blood Cell (WBC) Count 9.6 thou/uL (4.8-10.8)
[2020-08-22 05:57] LABS: Anion Gap 14 mmol/L (10-20); BUN (Urea Nitrogen) 18 mg/dL (8.4-25.7); Calc. Creatinine Clearance 155 mL/min (70-130); Calcium 8.4 mg/dL (7.8-10.44); Carbon Dioxide 25 mmol/L (23-31); Chloride 98 mmol/L (98-107); Glucose 249 mg/dL (83-110); Potassium 4.1 mmol/L (3.5-5.1); Sodium 133 mmol/L (136-145)
--- NOTE | 2020-08-22 06:31 | PDOC.HOSPP ---
- Subjective Encounter Date: 08/22/20 Subjective: Patient seen and examined this morning at bedside. Admitted with diagnosis of acute hypoxic respiratory failure in setting of COVID-19. Has been transitioned to nasal cannula O2 3.5 L from high flow oxygen. During my assessment he does appear somewhat dyspneic during our conversation. 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 He does have morbid obesity and appears quite deconditioned hence he will likely benefit from rehab stay. I did discuss this possibility with patient however he tells me that he wants to go [place] and her daughter can take care of him. During my encounter he denies any shortness of breath, cough, fever, chills, malaise and on the other hand reports overall improvement from admission. - Objective Vital Signs & Weight: Vital Signs (12 hours) Temp Pulse Resp BP Pulse Ox 08/22/20 05:12 97.6 F 80 20 135/88 97 08/22/20 00:05 98.4 F 70 16 126/79 95 08/21/20 19:58 97.6 F 99 24 H 137/75 98 Weight Admit Weight 334 lb 1.6 oz Weight 335 lb 8 oz Most Recent Monitor Data Heart Rate from ECG 50 NIBP 159/78 NIBP BP-Mean 105 Respiration from ECG 32 SpO2 93 I&O: 08/20/20 08/21/20 08/22/20 06:59 06:59 06:59 Intake Total 800 1160 700 Output Total 675 350 860 Balance 125 810 -160 Result Diagrams: 08/22/20 05:14 08/22/20 05:14 Additional Labs: Accuchecks 08/21/20 08/21/20 19:53 10:40 POC Glucose 260 H 183 H Hospitalist ROS - Review of Systems Constitutional: denies: fever, chills, sweats, weakness, malaise, other Respiratory: denies: cough, dry, shortness of breath, hemoptysis, SOB with excertion, pleuritic pain, sputum, wheezing, other Cardiovascular: denies: chest pain, palpitations, orthopnea, paroxysmal noc. dyspnea, edema, light headedness, other Gastrointestinal: denies: nausea, vomiting, abdominal pain, diarrhea, constipation, melena, hematochezia, other Neurological: denies: weakness, numbness, incoordination, change in speech, confusion, seizures, other - Medication Medications: Active Medications Generic Name Dose Route Start Last Admin Trade Name Freq PRN Reason Stop Dose Admin Albuterol Sulfate 2 puff 08/05/20 13:00 08/22/20 03:03 Albuterol 200 Puff (6.7gm Inhaler) INH Not Given [facility] Allopurinol 100 mg 08/05/20 09:00 08/21/20 10:20 Allopurinol 100 Mg Tab PO 100 mg DAILY ALIYAH Administration Amlodipine Besylate 10 mg 08/05/20 09:00 08/21/20 10:20 Amlodipine 10 Mg Tab PO 10 mg DAILY ALIYAH Administration Apixaban 5 mg 08/05/20 09:00 08/21/20 20:58 Apixaban 5 Mg Tab PO 5 mg BID ALIYAH Administration Ascorbic Acid 1,000 mg 08/06/20 09:00 08/21/20 10:21 Ascorbic Acid 500 Mg Chewable Tablet PO 1,000 mg DAILY ALIYAH Administration Atorvastatin Calcium 40 mg 08/05/20 21:00 08/21/20 20:58 Atorvastatin Calcium 40 Mg Tab PO 40 mg HS ALIYAH Administration Carvedilol 25 mg 08/05/20 08:00 08/21/20 16:36 Carvedilol 25 Mg Tab PO 25 mg BID-WM ALIYAH Administration Cholecalciferol 5,000 units 08/05/20 21:00 08/21/20 20:57 Cholecalciferol 1,000 Units (25 Mcg) Tab PO 5,000 units HS ALIYAH Administration Cyanocobalamin 1,000 mcg 08/10/20 09:00 08/21/20 10:21 Cyanocobalamin (Vitamin B-12) 1,000 Mcg Tab PO 1,000 mcg DAILY ALIYAH Administration Dexamethasone 2 mg 08/07/20 10:00 08/21/20 10:22 Dexamethasone 4 Mg/Ml Vial SLOW IVP 2 mg Q24HR ALIYAH Administration Famotidine 20 mg 08/05/20 09:00 08/21/20 20:58 Famotidine 20 Mg Tab PO 20 mg BID ALIYAH Administration Folic Acid 1 mg 08/10/20 09:00 08/21/20 10:21 Folic Acid 1 Mg Tab PO 1 mg DAILY ALIYAH Administration Insulin Glargine 43 units/ 0.43 mls @ 0 mls/hr 08/17/20 21:00 08/21/20 20:55 Miscellaneous Medication SC 0.43 mls HS ALIYAH Administration Insulin Glargine 43 units/ 0.43 mls @ 0 mls/hr 08/18/20 09:00 08/21/20 10:22 Miscellaneous Medication SC 0.43 mls QAM ALIYAH Administration Insulin Human Lispro 0 units 08/05/20 12:18 08/21/20 18:11 Humalog 300 Units/3 Ml Vial SC 3 unit .AGGRESSIVE SLIDING PRN Administration Aggressive Correctional Scale Insulin Human Lispro 0 units 08/05/20 12:18 08/21/20 20:57 Humalog 300 Units/3 Ml Vial SC 3 unit .BEDTIME SLIDING SC PRN Administration Bedtime Correctional Scale Loratadine 10 mg 08/05/20 12:16 08/07/20 09:52 Loratadine 10 Mg Tab PO 10 mg DAILYPRN PRN Administration Sinus Symptoms Mometasone Furoate/Formoterol Fumar 2 puff 08/09/20 18:30 08/21/20 18:12 Mometasone 200 Mcg/Formoterol 5 Mcg 120 Puff Inhaler INH 2 puff BID-RT ALIYAH Administration Nystatin 0 gm 08/05/20 15:14 08/21/20 16:32 Nystatin Powder 15 Gm Bot TOP 1 applic BIDPRN PRN Administration Rash/Topical Irritation Ondansetron HCl 4 mg 08/05/20 04:23 08/09/20 12:05 Ondansetron Pf 4 Mg/2 Ml Vial IVP 4 mg Q6H PRN Administration Nausea/Vomiting use 1st Ondansetron HCl 4 mg 08/05/20 12:16 08/19/20 14:02 Ondansetron Odt 4 Mg Tab SL 4 mg Q6H PRN Administration Nausea/Vomiting Saccharomyces Boulardii 250 mg 08/05/20 09:00 08/21/20 20:59 Saccharomyces Boulardii 250 Mg Cap PO 250 mg BID ALIYAH Administration Sodium Chloride 10 ml 08/05/20 09:00 08/21/20 21:00 Flush - Normal Saline 10 Ml Syringe IVF 10 ml Q12HR ALIYAH Administration Sodium Chloride 10 ml 08/05/20 06:15 08/09/20 12:05 Flush - Normal Saline 10 Ml Syringe IVF 10 ml PRN PRN Administration Saline Flush Tamsulosin HCl 0.4 mg 08/05/20 09:00 08/21/20 10:21 Tamsulosin Hcl 0.4 Mg Cap PO 0.4 mg DAILY ALIYAH Administration Zinc Sulfate 220 mg 08/06/20 09:00 08/21/20 10:20 Zinc Sulfate 220 Mg Cap PO 220 mg DAILY ALIYAH Administration - Exam General Appearance: NAD, awake alert, ill appearing (Dyspneic during my conversation) Heart: RRR, no murmur, no gallops, no rubs, normal peripheral pulses Respiratory: no wheezes, no tachypnea, rhonchi Respiratory - other findings: Still has faint bilateral crackles, dyspnea during conversation Gastrointestinal: soft, non-tender, non-distended (Obesity), normal bowel sounds, no palpable masses, no hepatomegaly, no splenomegaly, no bruit Extremities: no cyanosis, no clubbing, no edema Neurological: cranial nerve grossly intact, normal sensation to touch, no weakness, no focal deficits, no new deficit Musculoskeletal: normal tone, normal strength, no muscle wasting Psychiatric: oriented to person, oriented to place (Unclear if there is an element of dementia, 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 At baseline on 2 L nasal cannula at bedtime. Per patient he does not use oxygen during the day either at rest or on exertion. COVID-19 pneumonia: Per review of record he does appear to have gradual improvement to his symptoms however he remains somewhat dyspneic during conversation. On exam he does have faint bilateral crackles. He has completed remdesivir and is now on low-dose dexamethasone. O2 requirements have been titrated down from high flow oxygen to 3.5 L via NC. Based on encounter today he does not appear stable for discharge. Will maintain current dose of steroids and monitor in the hospital 1-2 days hoping he will continue to improve towards discharge. Based on assessment he will benefit from rehab placement but he is refusing. Acute hypoxic respiratory failure: In setting of COVID-19 pneumonia. Improving now on 3.5 L O2 via NC. Continue to titrate down as tolerated. Continue inhalers & dexamethasone. Obesity hypoventilation syndrome: Per patient at baseline he uses 2 L O2 at bedtime. Counseled regarding lifestyle modifications. Atrial fibrillation: Rate controlled. Continue with calcium channel raj, beta-raj. Eliquis for anticoagulation. Hypertension: Continue with amlodipine, Cardizem, carvedilol. Diabetes mellitus: Remains somewhat elevated. Likely partially due to steroid- induced hyperglycemia. Increase Lantus to 45U BID, insulin sliding scale. BPH: Continue with Flomax. DISPOSITION: Obviously deconditioned. Still dyspneic during conversation and requiring 3.5 L of oxygen. Will benefit from rehab however he refuses. Case management follows.
[2020-08-22] MEDS: Mometasone 200 MCG/Formoterol 5 MCG 120 PUFF INHALER INH SCH ×2 (07:23→18:09)
[2020-08-22] MEDS: Allopurinol 100 MG TAB PO SCH (08:29)
[2020-08-22] MEDS: Ascorbic Acid 500 mg Chewable Tablet PO SCH (08:29)
[2020-08-22] MEDS: Famotidine 20 MG TAB PO SCH ×2 (08:29→20:08)
[2020-08-22] MEDS: Amlodipine 10 MG TAB PO SCH (08:31)
[2020-08-22] MEDS: Apixaban 5 MG TAB PO SCH ×2 (08:32→20:08)
[2020-08-22] MEDS: Tamsulosin HCl 0.4 MG CAP PO SCH (08:32)
[2020-08-22] MEDS: Zinc Sulfate 220 MG CAP PO SCH (08:32)
[2020-08-22] MEDS: Saccharomyces boulardii 250 MG CAP PO SCH ×2 (08:32→20:08)
[2020-08-22] MEDS: Carvedilol 25 MG TAB PO SCH ×2 (08:32→18:08)
[2020-08-22] MEDS: Folic Acid 1 MG TAB PO SCH (08:32)
[2020-08-22] MEDS: Insulin Glargine 43 UNITS in Pre-Filled Syringe 1 EACH SC SCH (08:33)
[2020-08-22] MEDS: Dexamethasone 4 mg/ml Vial SLOW IVP SCH (08:35)
[2020-08-22] MEDS: HumaLOG 300 UNITS/3 ML VIAL SC PRN ×3 (12:39→20:37)
[2020-08-22] MEDS: Cholecalciferol 1,000 UNITS (25 MCG) TAB PO SCH (20:08)
[2020-08-22] MEDS: Atorvastatin Calcium 40 MG TAB PO SCH (20:10)
[2020-08-22] MEDS: Insulin Glargine 45 UNITS in Pre-Filled Syringe 1 EACH SC SCH (20:37)
[2020-08-23] MEDS: Albuterol 200 PUFF (6.7GM INHALER) INH SCH ×4 (01:46→17:43)
[2020-08-23 05:38] LABS: #Basophils 0.1 thou/uL (0.0-0.2); #Eosinphils 0.1 thou/uL (0.0-0.7); #Lymphocytes 1.5 thou/uL (1.20-3.40); #Monocytes 0.7 thou/uL (0.11-0.59); %Basophils 0.8 % (0.0-1.0); %Eosinophils 1.3 % (0.0-10.0); %Lymphocytes 16.1 % (21.0-51.0); %Monocytes 7.4 % (0.0-10.0); %Neutrophils 74.5 % (42.0-75.0); Hemoglobin 14.2 g/dL (14.0-18.0); Mean Corpuscular HGB CONC 31.5 g/dL (32.0-36.0); Mean Corpuscular Hemoglobin 28.5 pg (27.0-31.0); Mean Corpuscular Volume 90.4 fL (78.0-98.0); Mean Platelet Volume 9.9 fL (7.4-10.4); Platelet Count 215 thou/uL (130-400); RBC Distribution Width 13.1 % (11.5-14.5); Red Blood Cell (RBC) Count 4.98 mill/uL (4.70-6.10); White Blood Cell (WBC) Count 9.4 thou/uL (4.8-10.8)
[2020-08-23 06:04] LABS: Anion Gap 11 mmol/L (10-20); BUN (Urea Nitrogen) 18 mg/dL (8.4-25.7); Calc. Creatinine Clearance 141 mL/min (70-130); Calcium 8.8 mg/dL (7.8-10.44); Carbon Dioxide 32 mmol/L (23-31); Chloride 99 mmol/L (98-107); Glucose 122 mg/dL (83-110); Potassium 4.4 mmol/L (3.5-5.1); Sodium 138 mmol/L (136-145)
[2020-08-23] MEDS: Mometasone 200 MCG/Formoterol 5 MCG 120 PUFF INHALER INH SCH ×2 (06:52→17:44)
[2020-08-23] MEDS: Insulin Glargine 45 UNITS in Pre-Filled Syringe 1 EACH SC SCH ×2 (09:44→21:18)
[2020-08-23] MEDS: Allopurinol 100 MG TAB PO SCH (09:47)
[2020-08-23] MEDS: Cyanocobalamin (Vitamin B-12) 1,000 MCG TAB PO SCH (09:47)
[2020-08-23] MEDS: Carvedilol 25 MG TAB PO SCH ×2 (09:47→17:10)
[2020-08-23] MEDS: Apixaban 5 MG TAB PO SCH ×2 (09:47→21:20)
[2020-08-23] MEDS: Amlodipine 10 MG TAB PO SCH (09:47)
[2020-08-23] MEDS: Saccharomyces boulardii 250 MG CAP PO SCH ×2 (09:47→21:20)
[2020-08-23] MEDS: Ascorbic Acid 500 mg Chewable Tablet PO SCH (09:47)
[2020-08-23] MEDS: Tamsulosin HCl 0.4 MG CAP PO SCH (09:48)
[2020-08-23] MEDS: Zinc Sulfate 220 MG CAP PO SCH (09:48)
[2020-08-23] MEDS: Folic Acid 1 MG TAB PO SCH (09:48)
[2020-08-23] MEDS: Famotidine 20 MG TAB PO SCH ×2 (09:52→21:20)
[2020-08-23] MEDS: Dexamethasone 4 mg/ml Vial SLOW IVP SCH (09:52)
--- NOTE | 2020-08-23 16:26 | PDOC.DS.DS ---
Provider - Provider Date of Admission: 08/05/20 02:46 Date of Discharge: 08/23/20 Admitting Provider: Sedrick Yoon MD Consultations: Pulmonary Primary Care Physician: ROBERTO ROMAN Course - Hospital Course Hospital Course: This is an 80-year-old patient who was admitted with COVID 19 PNEUMONIA. He was on HFNC and this was titrated down to NC. He was able to do well and improved to the point of been discharged home today. Resuscitation Status: 08/05/20 04:22 Resuscitation Status Routine Resuscitation Status: FULL: Full Resuscitation - Labs Lab Results: 08/23/20 05:29 08/23/20 05:29 Abnormal Lab Results - Last 48 hrs 08/22/20 05:14: Sodium 133 L 08/22/20 05:14: Neutrophils % 78.9 H, Lymphocytes % 12.5 L, Neutrophils # 7.6 H, Monocytes # 0.8 H 08/22/20 05:14: D-Dimer 1.87 H 08/23/20 05:29: Carbon Dioxide 32 H 08/23/20 05:29: MCHC 31.5 L, Lymphocytes % 16.1 L, Neutrophils # 7.0 H, Monocytes # 0.7 H Microbiology - Entire Visit 08/05/20 04:25 Stool C. difficile GDH Antigen & Toxins - Final - Physical Exam Vitals: Vital Signs (12 hours) Temp Pulse Resp BP BP BP Pulse Ox 08/23/20 13:54 105/69 146/90 H 08/23/20 10:20 97 F L 74 20 134/86 08/23/20 06:52 91 20 95 Pulse Ox Pulse Ox 08/23/20 13:54 89 L 90 L 08/23/20 10:20 08/23/20 06:52 Weight Admit Weight 334 lb 1.6 oz Weight 335 lb 8 oz Most Recent Monitor Data Heart Rate from ECG 50 NIBP 159/78 NIBP BP-Mean 105 Respiration from ECG 32 SpO2 93 Physical Exam: The patient was seen and examined on the day of discharge. Problem - Time spent with Patient (mins): 30 Plan - Discharge Medications Prescriptions: Diltiazem HCl [Cardizem] 30 mg PO Q6HR PRN #30 tab PRN Reason: HR >120 sustained Benzonatate [Tessalon] 100 mg PO Q6H PRN #30 cap PRN Reason: Cough Home Medications: Medication Instructions Recorded Confirmed Type Allopurinol 100 mg PO DAILY 09/15/19 08/05/20 History Omeprazole 20 mg PO DAILY 09/15/19 08/05/20 History Tamsulosin HCl 0.4 mg PO DAILY 09/15/19 08/05/20 History Potassium Chloride [Klor-Con] 20 meq PO SEEPHYS 10/10/19 08/05/20 History Apixaban [Eliquis] 5 mg PO BID 60 Days #60 tab 10/11/19 08/05/20 Rx Atorvastatin Calcium [Lipitor] 40 mg PO HS 30 Days #30 tab 10/11/19 08/05/20 Rx Carvedilol [Coreg] 25 mg PO BID-WM 30 Days #30 tab 10/12/19 08/05/20 Rx Amlodipine [Norvasc] 10 mg PO DAILY #30 tab 11/07/19 08/05/20 Rx Acetaminophen [Tylenol Regular 650 mg PO Q4H PRN tab 12/01/19 08/05/20 Rx Strength] Insulin Glargine,Hum.Rec.Anlog 12 unit SC DAILY #4 pen 12/01/19 08/05/20 Rx [Lantus Solostar] Ascorbic Acid [Vitamin C] 1,000 mg PO DAILY tab 08/23/20 Rx Benzonatate [Tessalon] 100 mg PO Q6H PRN #30 cap 08/23/20 Rx Cepastat Lozenges 1 heriberto PO Q2H PRN heriberto 08/23/20 Rx Diltiazem HCl [Cardizem] 30 mg PO Q6HR PRN #30 tab 08/23/20 Rx Allergies: Penicillins Allergy (Verified 08/05/20 03:18) - Discharge Instructions Discharge Instructions:: resume care with [facility] Activity:: Activity as Tolerated Equipment/Supplies:: Not Applicable - Follow up Plan Referrals: ROBERTO ROMAN [Primary Care Provider] - Disposition: HOME HEALTH Quality - Care Measures CORE MEASURES:: N/A
[2020-08-23] MEDS: HumaLOG 300 UNITS/3 ML VIAL SC PRN ×2 (17:10→21:19)
[2020-08-23] MEDS: Cholecalciferol 1,000 UNITS (25 MCG) TAB PO SCH (21:19)
[2020-08-23] MEDS: Atorvastatin Calcium 40 MG TAB PO SCH (21:20)
[2020-08-24] MEDS: Albuterol 200 PUFF (6.7GM INHALER) INH SCH ×4 (00:17→17:48)
[2020-08-24] MEDS: Mometasone 200 MCG/Formoterol 5 MCG 120 PUFF INHALER INH SCH ×2 (06:21→17:47)
[2020-08-24] MEDS: HumaLOG 300 UNITS/3 ML VIAL SC PRN ×3 (06:21→17:45)
[2020-08-24] MEDS: Insulin Glargine 45 UNITS in Pre-Filled Syringe 1 EACH SC SCH ×2 (08:56→19:32)
[2020-08-24] MEDS: Amlodipine 10 MG TAB PO SCH (08:59)
[2020-08-24] MEDS: Tamsulosin HCl 0.4 MG CAP PO SCH (08:59)
[2020-08-24] MEDS: Zinc Sulfate 220 MG CAP PO SCH (08:59)
[2020-08-24] MEDS: Allopurinol 100 MG TAB PO SCH (08:59)
[2020-08-24] MEDS: Carvedilol 25 MG TAB PO SCH ×2 (08:59→17:47)
[2020-08-24] MEDS: Ascorbic Acid 500 mg Chewable Tablet PO SCH (09:00)
[2020-08-24] MEDS: Folic Acid 1 MG TAB PO SCH (09:00)
[2020-08-24] MEDS: Cyanocobalamin (Vitamin B-12) 1,000 MCG TAB PO SCH (09:00)
[2020-08-24] MEDS: Famotidine 20 MG TAB PO SCH ×2 (09:00→19:32)
[2020-08-24] MEDS: Apixaban 5 MG TAB PO SCH ×2 (09:00→19:32)
[2020-08-24] MEDS: Saccharomyces boulardii 250 MG CAP PO SCH ×2 (09:00→19:32)
[2020-08-24] MEDS: Dexamethasone 4 mg/ml Vial SLOW IVP SCH (09:01)
--- NOTE | 2020-08-24 13:26 | PDOC.HOSPP ---
- Subjective Encounter Date: 08/24/20 Encounter Time: 13:24 Subjective: Mr. Hogan is an 80-year-old patient who is morbidly obese who was admitted to the hospital for COVID-19 pneumonia. He has had a rather protracted hospitalization here in the past couple weeks. He required high flow nasal irina selena and eventually was downgraded to regular cannula. Overall he has done really well and is being discharged to home with home health. He is back to his baseline O2 requirements. We did offer him rehab or jail facility for strengthening prior to going home. However he is adamant about going home. He said he will consider outpatient rehab from home should he not do well with home health. Please see the previously dictated discharge summary for further information and medication reconciliation. - Objective Vital Signs & Weight: Vital Signs (12 hours) Temp Pulse Resp BP Pulse Ox 08/24/20 12:00 96.3 F L 89 89 H 129/87 96 08/24/20 09:15 96 F L 88 20 134/78 96 08/24/20 04:16 98.0 F 80 22 H 115/68 100 Weight Admit Weight 334 lb 1.6 oz Weight 335 lb 8 oz Most Recent Monitor Data Heart Rate from ECG 50 NIBP 159/78 NIBP BP-Mean 105 Respiration from ECG 32 SpO2 93 I&O: 08/23/20 08/24/20 08/25/20 06:59 06:59 06:59 Intake Total 1370 1320 Output Total 100 780 Balance 1270 540 Result Diagrams: 08/23/20 05:29 08/23/20 05:29 Additional Labs: Accuchecks 08/24/20 08/24/20 08/23/20 11:12 06:20 21:06 POC Glucose 192 H 184 H 379 H 08/23/20 16:43 POC Glucose 188 H Radiology Reviewed by me: Yes EKG Reviewed by me: Yes Hospitalist ROS - Review of Systems Constitutional: reports: weakness Respiratory: reports: shortness of breath, SOB with excertion Cardiovascular: reports: edema Gastrointestinal: reports: nausea - Medication Medications: Active Medications Generic Name Dose Route Start Last Admin Trade Name Freq PRN Reason Stop Dose Admin Albuterol Sulfate 2 puff 08/05/20 13:00 08/24/20 13:21 Albuterol 200 Puff (6.7gm Inhaler) INH 2 puff [id number] ALIYAH Administration Allopurinol 100 mg 08/05/20 09:00 08/24/20 08:59 Allopurinol 100 Mg Tab PO 100 mg DAILY ALIYAH Administration Amlodipine Besylate 10 mg 08/05/20 09:00 08/24/20 08:59 Amlodipine 10 Mg Tab PO 10 mg DAILY ALIYAH Administration Apixaban 5 mg 08/05/20 09:00 08/24/20 09:00 Apixaban 5 Mg Tab PO 5 mg BID ALIYAH Administration Ascorbic Acid 1,000 mg 08/06/20 09:00 08/24/20 09:00 Ascorbic Acid 500 Mg Chewable Tablet PO 1,000 mg DAILY ALIYAH Administration Atorvastatin Calcium 40 mg 08/05/20 21:00 08/23/20 21:20 Atorvastatin Calcium 40 Mg Tab PO 40 mg HS ALIYAH Administration Carvedilol 25 mg 08/05/20 08:00 08/24/20 08:59 Carvedilol 25 Mg Tab PO 25 mg BID-WM ALIYAH Administration Cholecalciferol 5,000 units 08/05/20 21:00 08/23/20 21:19 Cholecalciferol 1,000 Units (25 Mcg) Tab PO 5,000 units HS ALIYAH Administration Cyanocobalamin 1,000 mcg 08/10/20 09:00 08/24/20 09:00 Cyanocobalamin (Vitamin B-12) 1,000 Mcg Tab PO 1,000 mcg DAILY ALIYAH Administration Dexamethasone 2 mg 08/07/20 10:00 08/24/20 09:01 Dexamethasone 4 Mg/Ml Vial SLOW IVP 2 mg Q24HR ALIYAH Administration Famotidine 20 mg 08/05/20 09:00 08/24/20 09:00 Famotidine 20 Mg Tab PO 20 mg BID ALIYAH Administration Folic Acid 1 mg 08/10/20 09:00 08/24/20 09:00 Folic Acid 1 Mg Tab PO 1 mg DAILY ALIYAH Administration Guaifenesin/Dextromethorphan 15 ml 08/05/20 04:23 08/23/20 21:37 Guaifenesin Dm 100-10/5 Ml Udcup PO 15 ml Q4H PRN Administration Cough Insulin Glargine 45 units/ 0.45 mls @ 0 mls/hr 08/23/20 09:00 08/24/20 08:56 Miscellaneous Medication SC 0.45 mls QAM ALIYAH Administration As Directed Insulin Glargine 45 units/ 0.45 mls @ 0 mls/hr 08/22/20 21:00 08/23/20 21:18 Miscellaneous Medication SC 0.45 mls HS ALIYAH Administration As Directed Insulin Human Lispro 0 units 08/05/20 12:18 08/24/20 06:21 Humalog 300 Units/3 Ml Vial SC 3 unit .AGGRESSIVE SLIDING PRN Administration Aggressive Correctional Scale Insulin Human Lispro 0 units 08/05/20 12:18 08/23/20 21:19 Humalog 300 Units/3 Ml Vial SC 5 unit .BEDTIME SLIDING SC PRN Administration Bedtime Correctional Scale Loratadine 10 mg 08/05/20 12:16 08/07/20 09:52 Loratadine 10 Mg Tab PO 10 mg DAILYPRN PRN Administration Sinus Symptoms Mometasone Furoate/Formoterol Fumar 2 puff 08/09/20 18:30 08/24/20 06:21 Mometasone 200 Mcg/Formoterol 5 Mcg 120 Puff Inhaler INH 2 puff BID-RT ALIYAH Administration Nystatin 0 gm 08/05/20 15:14 08/21/20 16:32 Nystatin Powder 15 Gm Bot TOP 1 applic BIDPRN PRN Administration Rash/Topical Irritation Ondansetron HCl 4 mg 08/05/20 04:23 08/09/20 12:05 Ondansetron Pf 4 Mg/2 Ml Vial IVP 4 mg Q6H PRN Administration Nausea/Vomiting use 1st Ondansetron HCl 4 mg 08/05/20 12:16 08/19/20 14:02 Ondansetron Odt 4 Mg Tab SL 4 mg Q6H PRN Administration Nausea/Vomiting Saccharomyces Boulardii 250 mg 08/05/20 09:00 08/24/20 09:00 Saccharomyces Boulardii 250 Mg Cap PO 250 mg BID ALIYAH Administration Sodium Chloride 10 ml 08/05/20 09:00 08/24/20 09:00 Flush - Normal Saline 10 Ml Syringe IVF 10 ml Q12HR ALIYAH Administration Sodium Chloride 10 ml 08/05/20 06:15 08/09/20 12:05 Flush - Normal Saline 10 Ml Syringe IVF 10 ml PRN PRN Administration Saline Flush Tamsulosin HCl 0.4 mg 08/05/20 09:00 08/24/20 08:59 Tamsulosin Hcl 0.4 Mg Cap PO 0.4 mg DAILY ALIYAH Administration Zinc Sulfate 220 mg 08/06/20 09:00 08/24/20 08:59 Zinc Sulfate 220 Mg Cap PO 220 mg DAILY ALIYAH Administration - Exam General Appearance: awake alert, ill appearing Eye: PERRL, anicteric sclera ENT: normocephalic atraumatic, no oropharyngeal lesions Neck: supple, symmetric, JVD Heart: RRR, no murmur, no gallops, no rubs, normal peripheral pulses Respiratory: CTAB, no wheezes Gastrointestinal: soft, non-tender Extremities: no cyanosis, no clubbing Skin: normal turgor, no lesions Neurological: cranial nerve grossly intact, normal sensation to touch Musculoskeletal: normal tone, normal strength Psychiatric: normal affect, normal behavior, A&O x 3 Hosp A/P (1) Acute respiratory failure with hypoxia Code(s): J96.01 - ACUTE RESPIRATORY FAILURE WITH HYPOXIA Status: Acute (2) Pneumonia due to 2019-nCoV Code(s): U07.1 - COVID-19; J12.89 - OTHER VIRAL PNEUMONIA Status: Acute (3) Physical deconditioning Code(s): R53.81 - OTHER MALAISE Status: Acute - Plan PT/OT, respiratory therapy, incentive spirometry, DVT proph w/lovenox
[2020-08-24] MEDS: Cholecalciferol 1,000 UNITS (25 MCG) TAB PO SCH (19:31)
[2020-08-24] MEDS: Atorvastatin Calcium 40 MG TAB PO SCH (19:32)
[2020-08-24 19:55] VITALS: BP 110/62; TEMP 97.8
== END 2020-08-24 20:32 | disposition home health service (06) | DRG 871 ==
LOC: IMCU/EMU 02:46 → 2SW 08-07 23:01
PROVIDERS: ADMIT Internal Medicine; ATTEND Hospitalist
PROC: XW033E5 Introduction of Remdesivir Anti-infective into Peripheral Vein, Percutaneous Approach, New Technology Group 5 (ICD-10-PCS; principal; 2020-08-05)
PROC: 8E0ZXY6 Isolation (ICD-10-PCS; 2020-08-05)
DX: A41.89 Other specified sepsis (principal); U07.1 COVID-19; J12.89 Other viral pneumonia; Z51.5 Encounter for palliative care; J96.01 Acute respiratory failure with hypoxia; J44.1 Chronic obstructive pulmonary disease with (acute) exacerbation; J44.0 Chronic obstructive pulmonary disease with (acute) lower respiratory infection; I50.32 Chronic diastolic (congestive) heart failure; N30.00 Acute cystitis without hematuria; E66.2 Morbid (severe) obesity with alveolar hypoventilation; I42.8 Other cardiomyopathies; I13.0 Hypertensive heart and chronic kidney disease with heart failure and stage 1 through stage 4 chronic kidney disease, or unspecified chronic kidney disease; Z68.42 Body mass index [BMI] 45.0-49.9, adult; E78.5 Hyperlipidemia, unspecified; M10.9 Gout, unspecified; N40.0 Benign prostatic hyperplasia without lower urinary tract symptoms; E83.42 Hypomagnesemia; E11.65 Type 2 diabetes mellitus with hyperglycemia; D64.9 Anemia, unspecified; I48.0 Paroxysmal atrial fibrillation; E11.22 Type 2 diabetes mellitus with diabetic chronic kidney disease; N18.30 Chronic kidney disease, stage 3 unspecified; Z99.81 Dependence on supplemental oxygen; Z88.1 Allergy status to other antibiotic agents; Z88.0 Allergy status to penicillin; Z83.3 Family history of diabetes mellitus; Z82.49 Family history of ischemic heart disease and other diseases of the circulatory system; Z79.899 Other long term (current) drug therapy; Z79.4 Long term (current) use of insulin; Z79.01 Long term (current) use of anticoagulants
CPT/HCPCS: 36415; 36416; 36600; 71045; 80048; 80053; 82728; 82805; 83735; 84100; 85025; 85379; 86140; 86769; 87324; 87449; 87635; 94664; J0696; J1100; J1815; J1956; J2405; J3475; J3490; J7050; Q0162; U0003

== ENCOUNTER 2020-08-26 19:57 | Inpatient (IN) | payer MEDICARE ==
[2020-08-26] MEDS ORDERED: Albuterol Sulfate 2.5 mg/0.5 ml Neb ONE (21:07)
[2020-08-26 21:13] LABS: #Basophils 0.1 thou/uL (0.0-0.2); #Eosinphils 0.1 thou/uL (0.0-0.7); #Lymphocytes 1.7 thou/uL (1.20-3.40); #Monocytes 0.9 thou/uL (0.11-0.59); #Neutrophils 9.4 thou/uL (1.40-6.50); %Basophils 0.7 % (0.0-1.0); %Eosinophils 0.8 % (0.0-10.0); %Lymphocytes 13.7 % (21.0-51.0); %Monocytes 7.7 % (0.0-10.0); %Neutrophils 77.1 % (42.0-75.0); Hemoglobin 15.9 g/dL (14.0-18.0); Mean Corpuscular HGB CONC 32.1 g/dL (32.0-36.0); Mean Corpuscular Hemoglobin 29.3 pg (27.0-31.0); Mean Corpuscular Volume 91.3 fL (78.0-98.0); Mean Platelet Volume 10.4 fL (7.4-10.4); Platelet Count 189 thou/uL (130-400); RBC Distribution Width 13.5 % (11.5-14.5); Red Blood Cell (RBC) Count 5.43 mill/uL (4.70-6.10); White Blood Cell (WBC) Count 12.1 thou/uL (4.8-10.8)
[2020-08-26] MEDS ORDERED: Diltiazem HCl 125 MG, Admixture Fee 1 EACH in Sodium Chloride 0.9% 100 ML IVPB SCH (21:15)
--- NOTE | 2020-08-26 21:37 | RAD ---
RADIOGRAPH CHEST 1 VIEW: DATE: 08/26/2020 TIME: 9:06 PM HISTORY: 80-year-old male with hypoxia COMPARISON: 08/09/2020 FINDINGS: New moderate sized regions of airspace opacity/consolidation involving right mid and upper lung zones . Smaller nodular alveolar infiltrates at right lateral base. Dense consolidation of right medial retrocardiac lower lobe. Interval worsening of now moderate patchy groundglass infiltrates at left mid and lower lung zones. No pneumothorax. IMPRESSION: Interval worsening of bilateral infiltrates, right worse than left
[2020-08-26 21:42] LABS: ALT (SGPT) 40 U/L (8-55); AST (SGOT) 31 U/L (5-34); Albumin 3.1 g/dL (3.4-4.8); Alkaline Phosphatase 89 U/L (40-110); Anion Gap 16 mmol/L (10-20); BUN (Urea Nitrogen) 10 mg/dL (8.4-25.7); Bilirubin, Total 0.6 mg/dL (0.2-1.2); Calc. Creatinine Clearance 0 mL/min (70-130); Calcium 8.4 mg/dL (7.8-10.44); Carbon Dioxide 26 mmol/L (23-31); Chloride 103 mmol/L (98-107); Globulin 4.2 g/dL (2.4-3.5); Glucose 127 mg/dL (83-110); Protein, Total 7.3 g/dL (5.8-8.1); Sodium 140 mmol/L (136-145)
--- NOTE | 2020-08-27 00:45 | PDOC.HHP ---
Hospitalist HPI - History of Present Illness dyspnea History of Present Illness: Case of an 80y/o with a pmhx of COPD on home o2 2l, DM, HTN, COPD and CHF who was admitted and discharge this month due to covid 19 pneumonia returns with worsening dyspnea and afib in RVR. patient states that since discharge he has been having worsening nausea vomiting and diarrhea, he states all of these symptoms were present when he was hospitalize but has worsen since discharge, but what prompt him to come to hospital for evaluation was his worsening dyspnea. At ED patient was evaluated and found on afib w rvr and cxr looked worse than initial cxr for which hospitalist was called for further evaluation and management. patient denies fever chills chest pain or diaphoresis Hospitalist ROS - Review of Systems All other systems reviewed; all pertinent +/- noted in HPI/Subj Hospitalist History - Past Surgical History Other Surgical History: hemorroidectomy - Social History Alcohol: reports: None Drugs: reports: none - Exam General Appearance: ill appearing Eye: PERRL, anicteric sclera ENT: normocephalic atraumatic, no oropharyngeal lesions Neck: supple, symmetric, no JVD Heart: RRR, no murmur, no gallops Respiratory: rhonchi, tachypneic Gastrointestinal: soft, non-tender, non-distended Extremities: no cyanosis, no clubbing Skin: normal turgor, no lesions Neurological: cranial nerve grossly intact, normal sensation to touch Musculoskeletal: normal tone, normal strength Psychiatric: normal affect, normal behavior, A&O x 3 Hospitalist Results - Labs Result Diagrams: 08/26/20 20:58 08/26/20 20:58 Lab results: WBC 12.1 thou/uL (4.8-10.8) H 08/26/20 20:58 Hgb 15.9 g/dL (14.0-18.0) 08/26/20 20:58 Hct 49.6 % (42.0-52.0) 08/26/20 20:58 MCV 91.3 fL (78.0-98.0) 08/26/20 20:58 Plt Count 189 thou/uL (130-400) 08/26/20 20:58 Neutrophils % 77.1 % (42.0-75.0) H 08/26/20 20:58 Sodium 140 mmol/L (136-145) 08/26/20 20:58 Potassium 5.0 mmol/L (3.5-5.1) 08/26/20 20:58 Chloride 103 mmol/L (98-107) 08/26/20 20:58 Carbon Dioxide 26 mmol/L (23-31) 08/26/20 20:58 BUN 10 mg/dL (8.4-25.7) 08/26/20 20:58 Creatinine 1.15 mg/dL (0.7-1.3) 08/26/20 20:58 Glucose 127 mg/dL (83-110) H 08/26/20 20:58 Calcium 8.4 mg/dL (7.8-10.44) 08/26/20 20:58 Total Bilirubin 0.6 mg/dL (0.2-1.2) 08/26/20 20:58 AST 31 U/L (5-34) 08/26/20 20:58 ALT 40 U/L (8-55) 08/26/20 20:58 Alkaline Phosphatase 89 U/L (40-110) 08/26/20 20:58 Troponin I Less than 0.010 ng/mL (< 0.028) 08/26/20 20:58 B-Natriuretic Peptide 70.1 pg/mL (0-100) 08/26/20 20:58 Serum Total Protein 7.3 g/dL (5.8-8.1) 08/26/20 20:58 Albumin 3.1 g/dL (3.4-4.8) L 08/26/20 20:58 Hospitalist H&P A/P - Problem (1) Atrial fibrillation with rapid ventricular response Code(s): I48.91 - UNSPECIFIED ATRIAL FIBRILLATION Status: Acute (2) Acute respiratory failure with hypoxia Code(s): J96.01 - ACUTE RESPIRATORY FAILURE WITH HYPOXIA Status: Acute (3) Pneumonia due to 2019-nCoV Code(s): U07.1 - COVID-19; J12.89 - OTHER VIRAL PNEUMONIA Status: Acute (4) BPH (benign prostatic hyperplasia) Code(s): N40.0 - BENIGN PROSTATIC HYPERPLASIA WITHOUT LOWER URINRY TRACT SYMP Status: Chronic Qualifiers: Lower urinary tract symptom presence: symptoms absent Qualified Code(s): N40.0 - Benign prostatic hyperplasia without lower urinary tract symptoms (5) CHF (congestive heart failure) Code(s): I50.9 - HEART FAILURE, UNSPECIFIED Status: Chronic Qualifiers: Heart failure type: diastolic Heart failure chronicity: chronic Qualified Code(s): I50.32 - Chronic diastolic (congestive) heart failure (6) COPD exacerbation Code(s): J44.1 - CHRONIC OBSTRUCTIVE PULMONARY DISEASE W (ACUTE) EXACERBATION Status: Acute (7) Diabetes mellitus Code(s): E11.9 - TYPE 2 DIABETES MELLITUS WITHOUT COMPLICATIONS Status: Chronic Qualifiers: Diabetes mellitus type: type 2 Diabetes mellitus buttermaker insulin use: with buttermaker use Diabetes mellitus complication status: with hyperglycemia Qualified Code(s): E11.65 - Type 2 diabetes mellitus with hyperglycemia; Z79.4 - terminal operations supervisor (current) use of insulin (8) Gout Code(s): M10.9 - GOUT, UNSPECIFIED Status: Chronic (9) HTN (hypertension) Code(s): I10 - ESSENTIAL (PRIMARY) HYPERTENSION Status: Chronic (10) Hyperlipidemia Code(s): E78.5 - HYPERLIPIDEMIA, UNSPECIFIED Status: Chronic - Plan Plan: 80y/o male with the stated pmhx who present with worsening symptoms of covid 19 pneumonia and afib in rvr atrial fibrillation in RVR - ekg consistent with afib in rvr - started on diltiazem drip - cardiology consulted - continue elliquis for AC covid 19 pneumonia - recently discharge - cxr showed worsening infiltrates - will cover prophylactically w levaquin + vanc due to recent admission - f/u inflammation markers - isolation precautions - decadron iv - will start vit c vit d and zinc - f/u cultures resp failure, acute on chronic - likely due to above - 02 supplementation - wean as tolerated COPD exacerbation - likely due to above - on steroids chronic diastolic CHF - chronic, not in acute decompensation - last echo 10/2019 w/ EF 55-60%, grade III diastolic dysfunction, mild valve d isease T2DM -acc+ss HLD / HTN / gout / BPH - resume home medications once med rec complete
[2020-08-27] MEDS ORDERED: Diltiazem 125 MG in Sodium Chloride 0.9% 100 ML IVPB SCH (01:00)
[2020-08-27] MEDS ORDERED: Dextrose 5% in Water 1,000 ML IV PRN (01:01)
[2020-08-27] MEDS ORDERED: Dextrose 50% Abboject 50 ML SYRINGE SLOW IVP PRN (01:01)
[2020-08-27] MEDS ORDERED: PROVENTIL INHALER 6.7 G (200 INHALATIONS) ONE (01:53)
[2020-08-27] MEDS ORDERED: Dexamethasone 10 MG/ML VIAL ONE (01:57)
[2020-08-27 02:08] VITALS: BMI 50.7
[2020-08-27] MEDS ORDERED: Albuterol 200 PUFF (6.7GM INHALER) ONE (02:12)
[2020-08-27] MEDS ORDERED: Ondansetron PF 4 MG/2 ML Vial IVP PRN (03:50)
[2020-08-27] MEDS ORDERED: Ondansetron ODT 4 MG TAB ONE (04:03)
[2020-08-27 08:55] LABS: Bacteria/HPF 4+ HPF (None Seen); Bilirubin Negative (Negative); Blood, Urine Negative (Negative); Clarity Turbid (Clear); Glucose, Urine (Dipstick) Normal (Negative); Ketone, Urine Negative (Negative); Leukocyte 500 Leu/uL (Negative); Nitrite 2+ (Negative); Protein, Urine (Dipstick) 50 mg/dL (Neg-Trace); Specific Gravity, Urine 1.033 (1.002-1.036); WBC/HPF Greater than 50 HPF (0-3)
[2020-08-27] MEDS: Zinc Sulfate 220 MG CAP PO SCH (10:00)
[2020-08-27] MEDS: Apixaban 5 MG TAB PO SCH ×2 (10:00→22:00)
[2020-08-27] MEDS: Cholecalciferol (Vitamin D3) 400 UNITS TAB PO SCH (10:00)
[2020-08-27] MEDS: Ascorbic Acid 500 mg Chewable Tablet PO SCH (10:00)
--- NOTE | 2020-08-27 10:19 | PDOC.BPN ---
- Brief Progress Note Encounter Date: 08/27/20 Encounter Time: 10:18 Patient seen and examined, no significant changes from H&P by Dr Bernstein this AM. Patient is needing to go onto HFNC due to hypoxia. being treated for afib and covid pneumonia w/ COPD exacerbation. In ED hold pending room availability. Hospitalist service to follow daily.
[2020-08-27] MEDS ORDERED: Vancomycin 1 GM in Premix Bag 1 BAG IVPB ONE (18:16)
[2020-08-27] MEDS: Carvedilol 25 MG TAB PO SCH (22:00)
[2020-08-27] MEDS: Atorvastatin Calcium 40 MG TAB PO SCH (22:01)
[2020-08-27] MEDS: HumaLOG 300 UNITS/3 ML VIAL SC PRN (23:42)
[2020-08-28] MEDS: HumaLOG 300 UNITS/3 ML VIAL SC PRN ×4 (06:23→20:57)
--- NOTE | 2020-08-28 06:50 | CON ---
DATE OF CONSULTATION: The patient is being seen in the emergency room at this time. Apparently, he was seen on August 26, yesterday, in the emergency room. He was admitted and is still awaiting a room on the [facility]. He is presently in the emergency room as I am seeing him now. INDICATION FOR CONSULTATION: An 80-year-old gentleman with chronic atrial fibrillation, whom we were asked to see him due to atrial fibrillation with rapid ventricular response. HISTORY OF PRESENT ILLNESS: This is a very unfortunate 80-year-old gentleman, who recently was just discharged from the hospital 2 days ago after having COVID pneumonia. He also had some diarrhea. He said that when he was sent home, he still was not feeling well. He was short of breath and had diarrhea when he went home. He continued to have diarrhea. Apparently, his oxygen became disconnected. He was off the oxygen for several hours and became increasingly short of breath. He then had his family call 911. He was brought back to the emergency room. At this time, he is feeling much better. We were asked to see him due to the atrial fibrillation with rapid ventricular response. His heart rate has been in the 80s to one- teens since he has been here in the emergency room. At this time, I am seeing him, heart rate is 90s to 110. He is feeling much better. He does have oxygen on and has no complaints of chest pain. He does have multiple medical problems and he does have COPD. He has wheezing at this time, but he says his breathing is much better. His EKG does show atrial fibrillation, but no acute changes. He does have some PVCs, but he otherwise has some nonspecific ST-segment changes, and cardiac enzymes are negative for myocardial infarction. PAST MEDICAL HISTORY: Significant for COPD, he is on home oxygen. He has congestive heart failure, has diastolic dysfunction, ejection fraction back in October of this year showed ejection fraction of 55% to 60% with diastolic dysfunction. He did have mildly dilated left atrium and mild mitral valve regurgitation. He had a stress test in October 2019 that showed no evidence of ischemia. He has type 2 diabetes, which is insulin dependent. He has hypertension. Past medical history is positive for COVID pneumonia, for which he recently was in the hospital and was then discharged. SOCIAL HISTORY: Previously he told me he lived with family next door, but apparently he lives now with some family members. He has no alcohol or tobacco abuse. 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 FAMILY HISTORY: Noncontributory. No family history of acute coronary problems. ALLERGIES: HE IS ALLERGIC TO PENICILLIN. PAST SURGICAL HISTORY: He has had a history of hemorrhoidectomy. MEDICATIONS: Prior to admission included; 1. Furosemide 20 mg a day. 2. Omeprazole. 3. Coreg 6.25 mg, he has been taking 18.75 mg twice a day. 4. Tamsulosin 0.4 mg once a day. 5. Atorvastatin 40 mg a day. 6. Allopurinol 100 mg b.i.d. 7. Eliquis 5 mg and it should be twice a day. It looks like he is just taking once a day, but it should be twice a day. 8. He is also taking brimonidine ophthalmic drops one drop every 8 hours 0.2% solution. 9. He is on ProAir aerosol two puffs every 4 hours. 10. Potassium chloride 20 mEq a day. 11. Amlodipine 10 mg a day. 12. Linzess once a day. 13. He has been on prednisone, I am not sure he is still taking this, but it was up to 60 mg a day and most likely he was on a tapering dose. REVIEW OF SYSTEMS: He mainly complains of diarrhea and shortness of breath, and had no other significant changes from his last admission. PHYSICAL EXAMINATION: GENERAL: Reveals an elderly gentleman, who is in no acute distress at this time. He is alert, he is oriented. VITAL SIGNS: Show a blood pressure of 133/108, heart rate is 99 to 115, respiratory rates in the 20s to 30s, O2 saturation is 97%. HEENT: Unremarkable. Carotid pulses are present. I did not hear any bruits, but does have increased airways noise. CHEST: Otherwise has diffuse wheezing throughout. CARDIOVASCULAR: Revealed a tachycardia with an irregular rhythm. I did not hear any gross murmurs at this time, but does have increased airways noise, making it somewhat more difficult to auscultate. He does seem to have a systolic murmur at the apex. ABDOMEN: Obese with positive bowel sounds. No organomegaly or masses were noted. EXTREMITIES: Femoral pulses are present. Extremities showed no significant clubbing, cyanosis, or edema. Pedal pulses are present. NEUROLOGIC: He appears to be intact. DIAGNOSTIC STUDIES: Chest x-ray does show what appears to be significant infiltrates on the right side. The film was somewhat rotated, but it does appear most likely he has continuation of pneumonia or worsening of pneumonia since last admission. LABORATORY DATA: Show a WBC of 12.1, hemoglobin 15.9, platelet count 189,000. Potassium was 5.0, sodium was 140, BUN was 10 with a creatinine of 1.15. Cardiac enzymes are negative. LDH was 261. He has what appears to be a bacterial infection in the urine, 4+ bacteria in the urine was noted. Blood sugar was 127. EKG shows atrial fibrillation with nonspecific ST-segment changes and occasional frequent PVCs. IMPRESSION: 1. Probably progression of his COVID pneumonia from previous admission and perhaps it is a relapse. He had not been on his oxygen for several hours at home prior to coming back to the emergency room. O2 saturations are stable at this time. He has been placed on steroids and inhalers. I do not see any particular antibiotics at this time. This will be dealt with by the primary care service. 2. Atrial fibrillation with rapid ventricular response. We would agree with the IV diltiazem at this time. We will switch him over to p.o. once he becomes more stable. I would continue the Coreg at this time for better rate control. The heart rate is not significantly elevated, and hopefully once the underlying illness is improved, then also the heart rate will improve. 3. Chronic obstructive pulmonary disease. He is on nebulizer treatments, I noticed from the orders, and most likely will be seen by the nitroglycerin distributor. 4. Type 2 diabetes. This will be dealt with also by the primary care physician. At this time, I do not have any further recommendations except to continue the beta blockers as well as the IV diltiazem for rate control. We will continue to monitor the patient very carefully. Actually, he has been placed on levofloxacin and he has been given a dose of vancomycin also for antibiotic treatment of his pneumonia. We are more than happy to continue to follow the patient with you through this hospitalization, but overall, cardiac status is relatively stable except for the rapid ventricular response with atrial fibrillation, which is actually not significantly elevated, given the fact that this patient has underlying pneumonia. Job ID: [id number] [facility]
[2020-08-28] MEDS ORDERED: Non-Formulary Item 1 EACH (Insulin Glargine,Hum.Rec.Anlog [Lantus Solostar] 100 UNIT/ML P SC SCH (09:00)
[2020-08-28] MEDS: Apixaban 5 MG TAB PO SCH ×2 (09:17→20:58)
[2020-08-28] MEDS: Carvedilol 25 MG TAB PO SCH ×2 (09:17→17:19)
[2020-08-28] MEDS: Allopurinol 100 MG TAB PO SCH (09:17)
[2020-08-28] MEDS: Ascorbic Acid 500 mg Chewable Tablet PO SCH (09:18)
[2020-08-28] MEDS: Tamsulosin HCl 0.4 MG CAP PO SCH (09:18)
[2020-08-28] MEDS: Cholecalciferol (Vitamin D3) 400 UNITS TAB PO SCH (09:18)
[2020-08-28] MEDS: Insulin Glargine 12 UNITS in Pre-Filled Syringe 1 EACH SC SCH (09:18)
[2020-08-28] MEDS: Zinc Sulfate 220 MG CAP PO SCH (09:19)
[2020-08-28] MEDS ORDERED: Diltiazem HCl SR 90 mg Capsule PO SCH (13:30)
--- NOTE | 2020-08-28 15:37 | PDOC.HOSPP ---
- Subjective Encounter Date: 08/28/20 Encounter Time: 09:00 Subjective: patient in bed, no signficant SOB, off of HFNC and on 4-5L by NC. no chest pain. - Objective Vital Signs & Weight: Vital Signs (12 hours) Temp Pulse Resp BP Pulse Ox 08/28/20 14:09 97 08/28/20 14:08 87 18 97 08/28/20 12:30 97.3 F L 92 20 121/81 98 08/28/20 08:00 97.8 F 98 20 122/78 93 L 08/28/20 04:53 97.6 F 83 22 H 123/81 92 L Weight Weight 343 lb 11.21 oz I&O: 08/27/20 08/28/20 08/29/20 06:59 06:59 06:59 Intake Total 793 Balance 793 Result Diagrams: 08/26/20 20:58 08/28/20 00:26 Additional Labs: Accuchecks 08/28/20 08/28/20 08/27/20 10:33 05:46 20:48 POC Glucose 332 H 250 H 294 H Radiology Reviewed by me: Yes Hospitalist ROS - Medication Medications: Active Medications Generic Name Dose Route Start Last Admin Trade Name Freq PRN Reason Stop Dose Admin Albuterol/Ipratropium 3 ml 08/28/20 13:00 08/28/20 14:08 Ipratropium/Albuterol Sulfate 3 Ml Neb NEB 3 ml [id number] ALIYAH Administration Allopurinol 100 mg 08/28/20 09:00 08/28/20 09:17 Allopurinol 100 Mg Tab PO 100 mg DAILY ALIYAH Administration Apixaban 5 mg 08/27/20 09:00 08/28/20 09:17 Apixaban 5 Mg Tab PO 5 mg BID ALIYAH Administration Ascorbic Acid 1,000 mg 08/27/20 09:00 08/28/20 09:18 Ascorbic Acid 500 Mg Chewable Tablet PO 1,000 mg DAILY ALIYAH Administration Atorvastatin Calcium 40 mg 08/27/20 21:00 08/27/20 22:01 Atorvastatin Calcium 40 Mg Tab PO 40 mg HS ALIYAH Administration Carvedilol 25 mg 08/27/20 17:00 08/28/20 09:17 Carvedilol 25 Mg Tab PO 25 mg BID- ALIYAH Administration Cholecalciferol 400 units 08/27/20 09:00 08/28/20 09:18 Cholecalciferol (Vitamin D3) 400 Units Tab PO 400 units DAILY ALIYAH Administration Levofloxacin 750 mg/ Device 150 mls @ 100 mls/hr 08/27/20 02:00 08/28/20 01:21 IVPB 150 mls Q24HR ALIYAH Administration Diltiazem HCl 125 mg/ Sodium 125 mls @ 7.5 mls/hr 08/27/20 01:00 08/28/20 02:51 Chloride IVPB 08/28/20 16:00 125 mls INF ALIYAH Administration Protocol 7.5 MG/HR Vancomycin HCl 2 gm/ Sodium 500 mls @ 250 mls/hr 08/28/20 04:00 08/28/20 04:49 Chloride IVPB 09/02/20 05:59 500 mls Q24HR@0400 ALIYAH Administration Insulin Glargine 12 units/ 0.12 mls @ 0 mls/hr 08/28/20 09:00 08/28/20 09:18 Miscellaneous Medication SC 0.12 mls QAM ALIYAH Administration Insulin Human Lispro 0 units 08/27/20 01:01 08/28/20 12:48 Humalog 300 Units/3 Ml Vial SC 5 unit .MILD SLIDING SCALE PRN Administration Mild Correctional Scale Insulin Human Lispro 0 units 08/27/20 22:37 08/27/20 23:42 Humalog 300 Units/3 Ml Vial SC 3 unit .BEDTIME SLIDING SC PRN Administration Bedtime Correctional Scale Ondansetron HCl 4 mg 08/27/20 03:50 08/27/20 23:42 Ondansetron Pf 4 Mg/2 Ml Vial IVP 4 mg Q6H PRN Administration Nausea/Vomiting Pantoprazole Sodium 40 mg 08/28/20 09:00 08/28/20 09:18 Pantoprazole 40 Mg Tab PO 40 mg DAILY ALIYAH Administration Sodium Chloride 10 ml 08/27/20 09:00 08/28/20 09:18 Flush - Normal Saline 10 Ml Syringe IVF 10 ml Q12HR ALIYAH Administration Tamsulosin HCl 0.4 mg 08/28/20 09:00 08/28/20 09:18 Tamsulosin Hcl 0.4 Mg Cap PO 0.4 mg DAILY ALIYAH Administration Zinc Sulfate 220 mg 08/27/20 09:00 08/28/20 09:19 Zinc Sulfate 220 Mg Cap PO 220 mg DAILY ALIYAH Administration - Exam General Appearance: NAD, awake alert Eye: PERRL, anicteric sclera ENT: normocephalic atraumatic, no oropharyngeal lesions, moist mucosa Neck: supple, symmetric, no JVD, no thyromegaly, no lymphadenopathy, no carotid bruit Heart: RRR, no murmur, no gallops, no rubs, normal peripheral pulses Respiratory: CTAB, no wheezes, no rales, no ronchi, normal chest expansion, no tachypnea, normal percussion Gastrointestinal: soft, non-tender, non-distended, normal bowel sounds, no palpable masses, no hepatomegaly, no splenomegaly, no bruit Extremities: no cyanosis, no clubbing, no edema Skin: normal turgor, no lesions, no rashes Neurological: cranial nerve grossly intact, normal sensation to touch, no weakness, no focal deficits, no new deficit Musculoskeletal: normal tone, normal strength, no muscle wasting Psychiatric: normal affect, normal behavior, A&O x 3 Hosp A/P (1) Atrial fibrillation with rapid ventricular response Code(s): I48.91 - UNSPECIFIED ATRIAL FIBRILLATION Status: Acute (2) COPD exacerbation Code(s): J44.1 - CHRONIC OBSTRUCTIVE PULMONARY DISEASE W (ACUTE) EXACERBATION Status: Acute (3) CHF exacerbation Code(s): I50.9 - HEART FAILURE, UNSPECIFIED Status: Acute (4) Pneumonia due to 2019-nCoV Code(s): U07.1 - COVID-19; J12.89 - OTHER VIRAL PNEUMONIA Status: Acute (5) COPD (chronic obstructive pulmonary disease) Status: Chronic Qualifiers: Chronic bronchitis type: unspecified (6) Diabetes mellitus Code(s): E11.9 - TYPE 2 DIABETES MELLITUS WITHOUT COMPLICATIONS Status: Chronic Qualifiers: Diabetes mellitus type: type 2 Diabetes mellitus oil heaterman insulin use: with correction use Diabetes mellitus complication status: with hyperglycemia Qualified Code(s): E11.65 - Type 2 diabetes mellitus with hyperglycemia; Z79.4 - medical terminologist (current) use of insulin (7) Gout Code(s): M10.9 - GOUT, UNSPECIFIED Status: Chronic (8) HTN (hypertension) Code(s): I10 - ESSENTIAL (PRIMARY) HYPERTENSION Status: Chronic (9) Hyperlipidemia Code(s): E78.5 - HYPERLIPIDEMIA, UNSPECIFIED Status: Chronic - Plan 80y/o male with the stated pmhx who present with worsening symptoms of covid 19 pneumonia and afib in rvr atrial fibrillation in RVR - afib in rvr this admission - started on diltiazem drip - cardiology consulted - continue eliquis for AC covid 19 pneumonia - recently discharge - cxr showed worsening infiltrates - continue levaquin + vanc due to recent admission - f/u inflammation markers - isolation precautions - solu medrol iv - vit c vit d and zinc - f/u cultures # e faecalis bacteremia - likely contaminant, continue vancomycin/levaquin, repeat bcx, follow final s/s resp failure, acute on chronic - likely due to above - 02 supplementation - wean as tolerated COPD exacerbation - likely due to above - on steroids chronic diastolic CHF - chronic, not in acute decompensation - last echo 10/2019 w/ EF 55-60%, grade III diastolic dysfunction, mild valve di sease T2DM -acc+ss HLD / HTN / gout / BPH - resume home medications
[2020-08-28] MEDS ORDERED: Cepastat Lozenges 1 LOZ PO PRN (15:39)
[2020-08-28] MEDS: methylPREDNISolone Sod Succ/PF 125 MG/2 ML VIAL IVP SCH (17:16)
[2020-08-28] MEDS: Diltiazem HCl SR 90 mg Capsule PO SCH (20:58)
[2020-08-28] MEDS: Atorvastatin Calcium 40 MG TAB PO SCH (20:58)
[2020-08-29] MEDS: methylPREDNISolone Sod Succ/PF 125 MG/2 ML VIAL IVP SCH ×4 (01:05→23:10)
[2020-08-29] MEDS: Benzonatate 100 MG CAP PO PRN (01:15)
[2020-08-29 04:11] LABS: Vancomycin, Trough 7.9 ug/mL
[2020-08-29] MEDS: Vancomycin HCl 1.25 GM in Sodium Chloride 0.9% 250 ML 250 ML IVPB SCH ×2 (05:36→16:43)
[2020-08-29] MEDS: HumaLOG 300 UNITS/3 ML VIAL SC PRN ×4 (06:27→22:51)
[2020-08-29] MEDS: Carvedilol 25 MG TAB PO SCH ×2 (08:24→16:43)
[2020-08-29] MEDS: Allopurinol 100 MG TAB PO SCH (08:24)
[2020-08-29] MEDS: Cholecalciferol (Vitamin D3) 400 UNITS TAB PO SCH (08:24)
[2020-08-29] MEDS: Ascorbic Acid 500 mg Chewable Tablet PO SCH (08:24)
[2020-08-29] MEDS: Tamsulosin HCl 0.4 MG CAP PO SCH (08:24)
[2020-08-29] MEDS: Amlodipine 10 MG TAB PO SCH (08:24)
[2020-08-29] MEDS: Apixaban 5 MG TAB PO SCH ×2 (08:24→22:50)
[2020-08-29] MEDS: Zinc Sulfate 220 MG CAP PO SCH (08:24)
[2020-08-29] MEDS: Diltiazem HCl SR 90 mg Capsule PO SCH ×2 (08:27→22:50)
[2020-08-29] MEDS: Insulin Glargine 12 UNITS in Pre-Filled Syringe 1 EACH SC SCH (08:28)
--- NOTE | 2020-08-29 16:17 | PDOC.HOSPP ---
- Subjective Encounter Date: 08/29/20 Encounter Time: 15:30 Subjective: patient in bed, discussed disposition, he is wheelchair bound but daughter helps him. still on 2L by nasal cannula. wants to go home once over illness. no chest pain or shortness of breath. - Objective Vital Signs & Weight: Vital Signs (12 hours) Temp Pulse Pulse Resp BP BP Pulse Ox 08/29/20 15:13 98.3 F 88 22 H 132/80 94 L 08/29/20 14:51 112 H 106/60 08/29/20 13:46 87 20 95 08/29/20 11:27 97.7 F 85 23 H 121/79 94 L 08/29/20 08:23 92 L 08/29/20 08:00 97.4 F L 94 27 H 123/77 92 L 08/29/20 07:23 88 18 93 L Pulse Ox Pulse Ox 08/29/20 15:13 08/29/20 14:51 90 L 84 L 08/29/20 13:46 08/29/20 11:27 08/29/20 08:23 08/29/20 08:00 08/29/20 07:23 Weight Weight 343 lb 11.21 oz I&O: 08/28/20 08/29/20 08/30/20 06:59 06:59 06:59 Intake Total 793 2295 Balance 793 2295 Result Diagrams: 08/26/20 20:58 08/28/20 00:26 Additional Labs: Accuchecks 08/29/20 08/29/20 08/28/20 10:40 06:08 20:32 POC Glucose 427 H 341 H 365 H 08/28/20 17:05 POC Glucose 334 H Radiology Reviewed by me: Yes Hospitalist ROS - Medication Medications: Active Medications Generic Name Dose Route Start Last Admin Trade Name Freq PRN Reason Stop Dose Admin Albuterol/Ipratropium 3 ml 08/28/20 13:00 08/29/20 13:46 Ipratropium/Albuterol Sulfate 3 Ml Neb NEB 3 ml [id number] ALIYAH Administration Allopurinol 100 mg 08/28/20 09:00 08/29/20 08:24 Allopurinol 100 Mg Tab PO 100 mg DAILY ALIYAH Administration Amlodipine Besylate 10 mg 08/29/20 09:00 08/29/20 08:24 Amlodipine 10 Mg Tab PO 10 mg DAILY ALIYAH Administration Apixaban 5 mg 08/27/20 09:00 08/29/20 08:24 Apixaban 5 Mg Tab PO 5 mg BID ALIYAH Administration Ascorbic Acid 1,000 mg 08/27/20 09:00 08/29/20 08:24 Ascorbic Acid 500 Mg Chewable Tablet PO 1,000 mg DAILY ALIYAH Administration Atorvastatin Calcium 40 mg 08/27/20 21:00 08/28/20 20:58 Atorvastatin Calcium 40 Mg Tab PO 40 mg HS ALIYAH Administration Benzonatate 100 mg 08/27/20 10:19 08/29/20 01:15 Benzonatate 100 Mg Cap PO 100 mg Q6H PRN Administration Cough Carvedilol 25 mg 08/27/20 17:00 08/29/20 08:24 Carvedilol 25 Mg Tab PO 25 mg BID-WM ALIYAH Administration Cholecalciferol 400 units 08/27/20 09:00 08/29/20 08:24 Cholecalciferol (Vitamin D3) 400 Units Tab PO 400 units DAILY ALIYAH Administration Diltiazem HCl 90 mg 08/28/20 21:00 08/29/20 08:27 Diltiazem Hcl Sr 90 Mg Capsule PO 90 mg BID ALIYAH Administration Levofloxacin 750 mg/ Device 150 mls @ 100 mls/hr 08/27/20 02:00 08/29/20 01:06 IVPB 150 mls Q24HR ALIYAH Administration Vancomycin HCl 1.25 gm/ Sodium 250 mls @ 166.667 mls/hr 08/29/20 05:00 08/29/20 05:36 Chloride IVPB 09/02/20 05:01 250 mls 0500,1700 ALIYAH Administration Insulin Human Lispro 0 units 08/27/20 22:37 08/28/20 20:57 Humalog 300 Units/3 Ml Vial SC 5 unit .BEDTIME SLIDING SC PRN Administration Bedtime Correctional Scale Insulin Human Lispro 0 units 08/28/20 20:54 08/29/20 11:25 Humalog 300 Units/3 Ml Vial SC 10 unit .MODERATE SLIDING SC PRN Administration Moderate Correctional Scale Methylprednisolone Sodium Succinate 60 mg 08/28/20 16:00 08/29/20 08:23 Methylprednisolone Sod Succ/Pf 125 Mg/2 Ml Vial IVP 60 mg 0000,0800,1600 ALIYAH Administration Ondansetron HCl 4 mg 08/27/20 03:50 08/27/20 23:42 Ondansetron Pf 4 Mg/2 Ml Vial IVP 4 mg Q6H PRN Administration Nausea/Vomiting Pantoprazole Sodium 40 mg 08/28/20 09:00 08/29/20 08:24 Pantoprazole 40 Mg Tab PO 40 mg DAILY ALIYAH Administration Sodium Chloride 10 ml 08/27/20 09:00 08/29/20 08:25 Flush - Normal Saline 10 Ml Syringe IVF 10 ml Q12HR ALIYAH Administration Tamsulosin HCl 0.4 mg 08/28/20 09:00 08/29/20 08:24 Tamsulosin Hcl 0.4 Mg Cap PO 0.4 mg DAILY ALIYAH Administration Zinc Sulfate 220 mg 08/27/20 09:00 08/29/20 08:24 Zinc Sulfate 220 Mg Cap PO 220 mg DAILY ALIYAH Administration - Exam General Appearance: NAD, awake alert Eye: PERRL, anicteric sclera ENT: normocephalic atraumatic, no oropharyngeal lesions, moist mucosa Neck: supple, symmetric, no JVD, no thyromegaly, no lymphadenopathy, no carotid bruit Heart: RRR, no murmur, no gallops, no rubs, normal peripheral pulses Respiratory: CTAB, no wheezes, no rales, no ronchi, normal chest expansion, no tachypnea, normal percussion Gastrointestinal: soft, non-tender, non-distended, normal bowel sounds, no palpable masses, no hepatomegaly, no splenomegaly, no bruit Extremities: no cyanosis, no clubbing, no edema Skin: normal turgor, no lesions, no rashes Neurological: cranial nerve grossly intact, normal sensation to touch, no weakness, no focal deficits, no new deficit Musculoskeletal: normal tone, normal strength, no muscle wasting Psychiatric: normal affect, normal behavior, A&O x 3 Hosp A/P (1) Atrial fibrillation with rapid ventricular response Code(s): I48.91 - UNSPECIFIED ATRIAL FIBRILLATION Status: Acute (2) COPD exacerbation Code(s): J44.1 - CHRONIC OBSTRUCTIVE PULMONARY DISEASE W (ACUTE) EXACERBATION Status: Acute (3) CHF exacerbation Code(s): I50.9 - HEART FAILURE, UNSPECIFIED Status: Acute (4) Pneumonia due to 2019-nCoV Code(s): U07.1 - COVID-19; J12.89 - OTHER VIRAL PNEUMONIA Status: Acute (5) COPD (chronic obstructive pulmonary disease) Status: Chronic Qualifiers: Chronic bronchitis type: unspecified (6) Diabetes mellitus Code(s): E11.9 - TYPE 2 DIABETES MELLITUS WITHOUT COMPLICATIONS Status: Chronic Qualifiers: Diabetes mellitus type: type 2 Diabetes mellitus prison insulin use: with prison use Diabetes mellitus complication status: with hyperglycemia Qualified Code(s): E11.65 - Type 2 diabetes mellitus with hyperglycemia; Z79.4 - terminal makeup operator (current) use of insulin (7) Gout Code(s): M10.9 - GOUT, UNSPECIFIED Status: Chronic (8) HTN (hypertension) Code(s): I10 - ESSENTIAL (PRIMARY) HYPERTENSION Status: Chronic (9) Hyperlipidemia Code(s): E78.5 - HYPERLIPIDEMIA, UNSPECIFIED Status: Chronic - Plan 80y/o male with the stated pmhx who present with worsening symptoms of covid 19 pneumonia and afib in rvr atrial fibrillation in RVR - afib in rvr this admission - cardiology consulted, appreciate help w/ medication management - continue eliquis for AC covid 19 pneumonia - recently discharge - cxr showed worsening infiltrates - continue levaquin + vanc due to recent admission - f/u inflammation markers - isolation precautions - solu medrol iv - vit c vit d and zinc - f/u cultures - continue to wean o2 # e faecalis bacteremia - likely contaminant, continue vancomycin/levaquin, repeat bcx, follow final s/s resp failure, acute on chronic - likely due to above - 02 supplementation - wean as tolerated COPD exacerbation - likely due to above - on steroids chronic diastolic CHF - chronic, not in acute decompensation - last echo 10/2019 w/ EF 55-60%, grade III diastolic dysfunction, mild valve disease T2DM -acc+ss - increased lantus to 20u BID for poor sugar control HLD / HTN / gout / BPH - resume home medications
[2020-08-29] MEDS ORDERED: Insulin Glargine 15 UNITS in Pre-Filled Syringe 1 EACH SC SCH (21:00)
[2020-08-29] MEDS: Atorvastatin Calcium 40 MG TAB PO SCH (22:50)
[2020-08-30] MEDS: Vancomycin HCl 1.25 GM in Sodium Chloride 0.9% 250 ML 250 ML IVPB SCH (05:48)
[2020-08-30] MEDS ORDERED: Insulin Glargine 20 UNITS in Pre-Filled Syringe 1 EACH SC SCH (06:15)
[2020-08-30] MEDS: HumaLOG 300 UNITS/3 ML VIAL SC PRN ×4 (06:25→20:57)
[2020-08-30] MEDS: Amlodipine 10 MG TAB PO SCH (09:22)
[2020-08-30] MEDS: Ascorbic Acid 500 mg Chewable Tablet PO SCH (09:22)
[2020-08-30] MEDS: Tamsulosin HCl 0.4 MG CAP PO SCH (09:23)
[2020-08-30] MEDS: Carvedilol 25 MG TAB PO SCH ×2 (09:23→16:57)
[2020-08-30] MEDS: Diltiazem HCl SR 90 mg Capsule PO SCH ×2 (09:23→20:56)
[2020-08-30] MEDS: Allopurinol 100 MG TAB PO SCH (09:23)
[2020-08-30] MEDS: Cholecalciferol (Vitamin D3) 400 UNITS TAB PO SCH (09:23)
[2020-08-30] MEDS: Zinc Sulfate 220 MG CAP PO SCH (09:24)
[2020-08-30] MEDS: Apixaban 5 MG TAB PO SCH ×2 (09:24→20:56)
[2020-08-30] MEDS: methylPREDNISolone Sod Succ/PF 125 MG/2 ML VIAL IVP SCH (09:25)
--- NOTE | 2020-08-30 13:28 | PDOC.HOSPP ---
- Subjective Encounter Date: 08/30/20 Encounter Time: 13:28 Subjective: Patient was seen and examined in bed. Complains of worsening cough and shortness of breath. Denied any chest pain fevers. However notes ongoing diarrhea No significant events overnight. - Objective Vital Signs & Weight: Vital Signs (12 hours) Temp Pulse Resp BP Pulse Ox 08/30/20 11:46 97.7 F 81 21 H 123/79 97 08/30/20 09:22 85 08/30/20 08:12 85 13 08/30/20 05:07 92 L 08/30/20 03:54 97.6 F 76 20 127/71 92 L Weight Weight 329 lb 4 oz I&O: 08/29/20 08/30/20 08/31/20 06:59 06:59 06:59 Intake Total 2295 2150 Output Total 800 Balance 2295 1350 Result Diagrams: 08/26/20 20:58 08/28/20 00:26 Additional Labs: Accuchecks 08/30/20 08/30/20 08/29/20 10:55 06:16 20:51 POC Glucose 390 H 366 H 383 H 08/29/20 16:37 POC Glucose 477 H Hospitalist ROS - Review of Systems All other systems reviewed; all pertinent +/- noted in HPI/Subj - Medication Medications: Active Medications Generic Name Dose Route Start Last Admin Trade Name Freq PRN Reason Stop Dose Admin Albuterol/Ipratropium 3 ml 08/28/20 13:00 08/30/20 08:12 Ipratropium/Albuterol Sulfate 3 Ml Neb NEB 3 ml [id number] ALIYAH Administration Allopurinol 100 mg 08/28/20 09:00 08/30/20 09:23 Allopurinol 100 Mg Tab PO 100 mg DAILY ALIYAH Administration Amlodipine Besylate 10 mg 08/29/20 09:00 08/30/20 09:22 Amlodipine 10 Mg Tab PO 10 mg DAILY ALIYAH Administration Apixaban 5 mg 08/27/20 09:00 08/30/20 09:24 Apixaban 5 Mg Tab PO 5 mg BID ALIYAH Administration Ascorbic Acid 1,000 mg 08/27/20 09:00 08/30/20 09:22 Ascorbic Acid 500 Mg Chewable Tablet PO 1,000 mg DAILY ALIYAH Administration Atorvastatin Calcium 40 mg 08/27/20 21:00 08/29/20 22:50 Atorvastatin Calcium 40 Mg Tab PO 40 mg HS ALIYAH Administration Benzonatate 100 mg 08/27/20 10:19 08/29/20 01:15 Benzonatate 100 Mg Cap PO 100 mg Q6H PRN Administration Cough Carvedilol 25 mg 08/27/20 17:00 08/30/20 09:23 Carvedilol 25 Mg Tab PO 25 mg BID-WM ALIYAH Administration Cholecalciferol 400 units 08/27/20 09:00 08/30/20 09:23 Cholecalciferol (Vitamin D3) 400 Units Tab PO 400 units DAILY ALIYAH Administration Diltiazem HCl 90 mg 08/28/20 21:00 08/30/20 09:23 Diltiazem Hcl Sr 90 Mg Capsule PO 90 mg BID ALIYAH Administration Levofloxacin 750 mg/ Device 150 mls @ 100 mls/hr 08/27/20 02:00 08/30/20 02:17 IVPB 150 mls Q24HR ALIYAH Administration Vancomycin HCl 1.25 gm/ Sodium 250 mls @ 166.667 mls/hr 08/29/20 05:00 08/30/20 05:48 Chloride IVPB 09/02/20 05:01 250 mls 0500,1700 ALYIAH Administration Insulin Human Lispro 0 units 08/27/20 22:37 08/29/20 22:51 Humalog 300 Units/3 Ml Vial SC 5 unit .BEDTIME SLIDING SC PRN Administration Bedtime Correctional Scale Insulin Human Lispro 0 units 08/28/20 20:54 08/30/20 12:03 Humalog 300 Units/3 Ml Vial SC 10 unit .MODERATE SLIDING SC PRN Administration Moderate Correctional Scale Methylprednisolone Sodium Succinate 60 mg 08/28/20 16:00 08/30/20 09:25 Methylprednisolone Sod Succ/Pf 125 Mg/2 Ml Vial IVP 60 mg 0000,0800,1600 ALIYAH Administration Ondansetron HCl 4 mg 08/27/20 03:50 08/27/20 23:42 Ondansetron Pf 4 Mg/2 Ml Vial IVP 4 mg Q6H PRN Administration Nausea/Vomiting Pantoprazole Sodium 40 mg 08/28/20 09:00 08/30/20 09:24 Pantoprazole 40 Mg Tab PO 40 mg DAILY ALIYAH Administration Sodium Chloride 10 ml 08/27/20 09:00 08/30/20 09:24 Flush - Normal Saline 10 Ml Syringe IVF 10 ml Q12HR ALIYAH Administration Tamsulosin HCl 0.4 mg 08/28/20 09:00 08/30/20 09:23 Tamsulosin Hcl 0.4 Mg Cap PO 0.4 mg DAILY ALIYAH Administration Zinc Sulfate 220 mg 08/27/20 09:00 08/30/20 09:24 Zinc Sulfate 220 Mg Cap PO 220 mg DAILY ALIYAH Administration - Exam General Appearance: awake alert General - other findings: In mild respiratory distress Eye: PERRL, anicteric sclera ENT: normocephalic atraumatic, no oropharyngeal lesions Heart: RRR, no murmur, no gallops, no rubs Respiratory - other findings: Bilateral general wheezes. 2 L of oxygen Gastrointestinal: soft, non-tender, non-distended, normal bowel sounds, no palpable masses Extremities: no cyanosis, no clubbing, no edema Skin: normal turgor, no lesions Neurological: cranial nerve grossly intact, no focal deficits Psychiatric: normal affect, normal behavior, A&O x 3 Hosp A/P - Plan This is an 80-year-old male patient With a history of COPD, diabetes and CHF and recent Covid infection admitted on account of shortness of breath and A. fib with RVR Acute hypoxic respiratory failure In the setting of COPD/CHF/recent Covid infection Continue steroids duo nebs and antibiotics Was on vancomycin and Levaquin will DC on 2 Zosyn based on blood culture results. Continue monitoringas needed oxygen. Atrial fibrillation with RVR. On diltiazem and carvedilol Currently normal sinus rhythm Continue monitoring on telemetry. Cardiology following Enterococcus in 1 of 2 bottles Susceptible to Zosynwe will start Discontinue vancomycin and Levaquin Consult ID to help in antibiotic management. Type 2 diabetes mellitus Insulin Monitor glucose Diarrhea C. difficile Loperamide if negative. Hypertension Home meds resumed VT/resttherapeutic on Eliquis CODE STATUSfull code Dispositionpending improvement
[2020-08-30] MEDS ORDERED: Bacteriostatic Water 30 ML VIAL FS PRN (15:15)
[2020-08-30 16:48] LABS: Vancomycin, Trough 14.2 ug/mL
[2020-08-30] MEDS ORDERED: Azithromycin 500 MG in Sodium Chloride 0.9% 250 ML 250 ML IVPB SCH (17:00)
[2020-08-30] MEDS: Vancomycin 1.5 GRAM/300 ML BAG 1.5 GM in Premix Bag 1 BAG IVPB SCH (17:43)
[2020-08-30] MEDS: Atorvastatin Calcium 40 MG TAB PO SCH (20:56)
[2020-08-30] MEDS: Insulin Glargine 20 UNITS in Pre-Filled Syringe 1 EACH SC SCH (20:57)
[2020-08-31] MEDS: Vancomycin 1.5 GRAM/300 ML BAG 1.5 GM in Premix Bag 1 BAG IVPB SCH ×2 (04:46→16:41)
[2020-08-31] MEDS: HumaLOG 300 UNITS/3 ML VIAL SC PRN ×4 (06:00→22:05)
[2020-08-31 08:12] LABS: #Lymphocytes 0.7 thou/uL (1.20-3.40); #Monocytes 0.5 thou/uL (0.11-0.59); #Neutrophils 7.6 thou/uL (1.40-6.50); %Basophils 0.3 % (0.0-1.0); %Eosinophils 0.1 % (0.0-10.0); %Lymphocytes 7.7 % (21.0-51.0); %Monocytes 5.5 % (0.0-10.0); %Neutrophils 86.4 % (42.0-75.0); Hemoglobin 13.4 g/dL (14.0-18.0); Mean Corpuscular HGB CONC 31.5 g/dL (32.0-36.0); Mean Corpuscular Hemoglobin 28.6 pg (27.0-31.0); Mean Corpuscular Volume 90.7 fL (78.0-98.0); Mean Platelet Volume 9.3 fL (7.4-10.4); Platelet Count 141 thou/uL (130-400); RBC Distribution Width 13.2 % (11.5-14.5); White Blood Cell (WBC) Count 8.8 thou/uL (4.8-10.8)
[2020-08-31 08:26] LABS: Anion Gap 15 mmol/L (10-20); BUN (Urea Nitrogen) 24 mg/dL (8.4-25.7); Calc. Creatinine Clearance 137 mL/min (70-130); Calcium 8.4 mg/dL (7.8-10.44); Carbon Dioxide 24 mmol/L (23-31); Chloride 100 mmol/L (98-107); Glucose 339 mg/dL (83-110); Potassium 4.3 mmol/L (3.5-5.1); Sodium 135 mmol/L (136-145)
[2020-08-31] MEDS: methylPREDNISolone Sod Succ 40 MG VIAL IVP SCH (09:12)
[2020-08-31] MEDS: Allopurinol 100 MG TAB PO SCH (09:12)
[2020-08-31] MEDS: Carvedilol 25 MG TAB PO SCH ×2 (09:12→16:39)
[2020-08-31] MEDS: Amlodipine 10 MG TAB PO SCH (09:13)
[2020-08-31] MEDS: Diltiazem HCl SR 90 mg Capsule PO SCH ×2 (09:13→22:05)
[2020-08-31] MEDS: Apixaban 5 MG TAB PO SCH ×2 (09:13→22:05)
[2020-08-31] MEDS: Ascorbic Acid 500 mg Chewable Tablet PO SCH (09:13)
[2020-08-31] MEDS: Cholecalciferol (Vitamin D3) 400 UNITS TAB PO SCH (09:13)
[2020-08-31] MEDS: Tamsulosin HCl 0.4 MG CAP PO SCH (09:14)
[2020-08-31] MEDS: Zinc Sulfate 220 MG CAP PO SCH (09:14)
[2020-08-31] MEDS: Benzonatate 100 MG CAP PO PRN (09:16)
[2020-08-31] MEDS: Insulin Glargine 20 UNITS in Pre-Filled Syringe 1 EACH SC SCH ×2 (09:20→22:06)
--- NOTE | 2020-08-31 16:29 | CON ---
DATE OF CONSULTATION: 08/31/2020 REASON FOR CONSULTATION: Bacteremia. HISTORY OF PRESENT ILLNESS: An 80-year-old, whom I had seen recently for COVID- 19. He has a history of prior atrial fibrillation with RVR, CHF, hypoventilation syndrome/obesity, type 2 diabetes, COPD, and hypertension. On August 05, he came in with SARS-CoV-2 infection. He had a high risk of decompensation in view of the severity of his illness and the risk factors. So, he was treated with remdesivir, corticosteroids. He stayed in the hospital until August 23 and he was discharged on allopurinol, omeprazole, tamsulosin, Eliquis, Coreg, Norvasc, diltiazem. At home, he immediately decompensated. He started having dysuria and feeling worsening dyspnea. Did not have much respiratory symptoms except for the dyspnea, specifically no coughing spells. He did have nausea and vomiting and diarrhea as well. On arrival, his BP 130/107, pulse 125, respiratory rate 39, temperature 100, saturating 96% on non-rebreather. Initial findings; white cell count 12,000, hemoglobin 15.9, platelets 189. Creatinine was 1.15. Liver function normal, albumin 3.1. One set out of two with E faecalis with usual susceptibility profile. No urine cultures were submitted. The previous urine culture from August 05 had E coli. He had a C difficile test on August 05, which was negative. So, he has been receiving azithromycin, vancomycin, methylprednisolone. Currently, Mr. Hogan is feeling better. He was asking me if he could go home on Thursday. I told him I could not promise. It is kind of too premature to start predicting discharge for him. He denied any headaches. His dyspnea has improved markedly. He is not having any more dysuria. He denies any chest pain. No abdominal pain. He is still having intermittent diarrhea, last episode was yesterday. MEDICAL HISTORY: Quite extensive and includes morbid obesity, hypoventilation syndrome, COPD, cardiomyopathy, atrial fibrillation, had an echo with low EF that was during the paroxysmal atrial fibrillation episode, type 2 diabetes, hypertension. SOCIAL HISTORY: Never smoker. Lives in [place]. He has family members who live with him. FAMILY HISTORY: Type 2 diabetes and hypertension. ALLERGIES: CIPRO WITH ITCHING AND PENICILLIN WITH UNKNOWN ALLERGIC REACTION. CURRENT MEDICATIONS: Include; 1. Allopurinol. 2. Norvasc. 3. Lipitor. 4. Azithromycin. 5. Coreg. 6. Diltiazem. 7. Insulin. 8. Methylprednisolone. 9. Vancomycin. PHYSICAL EXAMINATION: VITAL SIGNS: He has been afebrile since admission. BP 130/80, heart rate 80, respiratory rate 16 to 25. O2 saturation 97, flow rate at 2 L. SKIN: With some bruising and pressure ulceration in the left gluteal region, very superficial, not more than stage II, with a nice looking base and otherwise no necrosis or blistering, and some maceration in intertriginous areas as well. Peripheral IV access. He does not have a Hansen catheter. He is voiding spontaneously without difficulty. No lymphadenopathy. HEENT: Ocular movements conjugate. Oral cavity with numerous missing teeth. NECK: Supple. No jugular vein distention. LUNGS: Fairly clear breath sounds. HEART: S1 and S2, regular rate. ABDOMEN: Soft. Not distended or tender. No ascites. No bladder distention. EXTREMITIES: No edema. Pulses 1+ in dorsalis pedis. He moves all extremities equally. Some element of onychodystrophy. NEUROLOGIC: Awake, alert, oriented, follows commands. Speech is normal. LABORATORY DATA: White cell count is down to 8.8, hemoglobin 13.4, platelets 141, with 86% neutrophils. Creatinine 1.15. Liver profile normal. Procalcitonin is 0.07. IMAGING: The chest x-ray from August 26 with some bilateral infiltrates. 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 DISCUSSION: The patient will be transitioned to ampicillin, most patients with penicillin allergy history do not actually have any reaction upon rechallenge and his history is very sketchy and I think he is going to tolerate, and allow us to convert to oral amoxicillin for discharge planning. I think he needs at least an ultrasound of his kidneys to verify there is no hydronephrosis and also a postvoid residual check. Regarding his COVID, this is one month after and he is not infectious anymore and is in the post COVID syndrome with slow recovery. I would consider tapering his corticosteroids to a lower dose as soon as feasible. Job ID: [id number] [facility]
[2020-08-31] MEDS: Azithromycin 500 MG in Sodium Chloride 0.9% 250 ML 250 ML IVPB SCH (17:20)
--- NOTE | 2020-08-31 18:00 | PDOC.HOSPP ---
- Subjective Encounter Date: 08/31/20 Subjective: Patient was seen and examined in bed. Still having ongoing shortness of breath and distress. However denies any chest pain diarrhea constipation. No significant events overnight. - Objective Vital Signs & Weight: Vital Signs (12 hours) Temp Pulse Pulse Resp BP BP Pulse Ox 08/31/20 16:00 98.1 F 78 21 H 134/71 96 08/31/20 14:40 99 F 80 25 H 132/80 97 08/31/20 14:15 90 16 08/31/20 10:34 90 121/73 08/31/20 07:55 97.5 F L 85 18 142/97 H 90 L 08/31/20 07:24 80 20 Pulse Ox Pulse Ox Pulse Ox 08/31/20 16:00 08/31/20 14:40 08/31/20 14:15 08/31/20 10:34 84 L 90 L 89 L 08/31/20 07:55 08/31/20 07:24 Weight Weight 329 lb I&O: 08/30/20 08/31/20 09/01/20 06:59 06:59 06:59 Intake Total 2150 2098 480 Output Total 800 200 600 Balance 1350 1898 -120 Result Diagrams: 08/31/20 07:58 08/31/20 07:58 Additional Labs: Accuchecks 08/31/20 08/31/20 08/31/20 16:13 12:01 05:33 POC Glucose 399 H 317 H 353 H 08/30/20 20:49 POC Glucose 328 H Hospitalist ROS - Review of Systems All other systems reviewed; all pertinent +/- noted in HPI/Subj - Medication Medications: Active Medications Generic Name Dose Route Start Last Admin Trade Name Freq PRN Reason Stop Dose Admin Albuterol/Ipratropium 3 ml 08/28/20 13:00 08/31/20 14:15 Ipratropium/Albuterol Sulfate 3 Ml Neb NEB 3 ml [id number] ALIYAH Administration Allopurinol 100 mg 08/28/20 09:00 08/31/20 09:12 Allopurinol 100 Mg Tab PO 100 mg DAILY ALIYAH Administration Amlodipine Besylate 10 mg 08/29/20 09:00 08/31/20 09:13 Amlodipine 10 Mg Tab PO 10 mg DAILY ALIYAH Administration Apixaban 5 mg 08/27/20 09:00 08/31/20 09:13 Apixaban 5 Mg Tab PO 5 mg BID ALIYAH Administration Ascorbic Acid 1,000 mg 08/27/20 09:00 08/31/20 09:13 Ascorbic Acid 500 Mg Chewable Tablet PO 1,000 mg DAILY ALIYAH Administration Atorvastatin Calcium 40 mg 08/27/20 21:00 08/30/20 20:56 Atorvastatin Calcium 40 Mg Tab PO 40 mg HS ALIYAH Administration Benzonatate 100 mg 08/27/20 10:19 08/31/20 09:16 Benzonatate 100 Mg Cap PO 100 mg Q6H PRN Administration Cough Carvedilol 25 mg 08/27/20 17:00 08/31/20 16:39 Carvedilol 25 Mg Tab PO 25 mg BID-WM ALIYAH Administration Cholecalciferol 400 units 08/27/20 09:00 08/31/20 09:13 Cholecalciferol (Vitamin D3) 400 Units Tab PO 400 units DAILY ALIYAH Administration Diltiazem HCl 90 mg 08/28/20 21:00 08/31/20 09:13 Diltiazem Hcl Sr 90 Mg Capsule PO 90 mg BID ALIYAH Administration Insulin Glargine 20 units/ 0.2 mls @ 0 mls/hr 08/30/20 21:00 08/31/20 09:20 Miscellaneous Medication SC 0.2 mls BID ALIYAH Administration As Directed Vancomycin HCl 1.5 gm/ Device 300 mls @ 166.67 mls/hr 08/30/20 17:00 08/31/20 16:41 IVPB 300 mls 0500,1700 ALIYAH Administration Azithromycin 500 mg/ Sodium 250 mls @ 250 mls/hr 08/31/20 18:00 08/31/20 17:20 Chloride IVPB 250 mls 1800 ALIYAH Administration Insulin Human Lispro 0 units 08/27/20 22:37 08/30/20 20:57 Humalog 300 Units/3 Ml Vial SC 4 unit .BEDTIME SLIDING SC PRN Administration Bedtime Correctional Scale Insulin Human Lispro 0 units 08/28/20 20:54 08/31/20 16:38 Humalog 300 Units/3 Ml Vial SC 10 unit .MODERATE SLIDING SC PRN Administration Moderate Correctional Scale Methylprednisolone Sodium Succinate 40 mg 08/31/20 08:00 08/31/20 09:12 Methylprednisolone Sod Succ 40 Mg Vial IVP 40 mg 0800 ALIYAH Administration Ondansetron HCl 4 mg 08/27/20 03:50 08/27/20 23:42 Ondansetron Pf 4 Mg/2 Ml Vial IVP 4 mg Q6H PRN Administration Nausea/Vomiting Pantoprazole Sodium 40 mg 08/28/20 09:00 08/31/20 09:13 Pantoprazole 40 Mg Tab PO 40 mg DAILY ALIYAH Administration Sodium Chloride 10 ml 08/27/20 09:00 08/31/20 09:14 Flush - Normal Saline 10 Ml Syringe IVF 10 ml Q12HR ALIYAH Administration Tamsulosin HCl 0.4 mg 08/28/20 09:00 08/31/20 09:14 Tamsulosin Hcl 0.4 Mg Cap PO 0.4 mg DAILY ALIYAH Administration Zinc Sulfate 220 mg 08/27/20 09:00 08/31/20 09:14 Zinc Sulfate 220 Mg Cap PO 220 mg DAILY ALIYAH Administration - Exam General Appearance: awake alert Eye: PERRL, anicteric sclera ENT: normocephalic atraumatic Neck: supple, symmetric, no JVD Heart: RRR, no murmur, no gallops, no rubs Respiratory: wheezes Respiratory - other findings: Decreased air entry. Gastrointestinal: soft, non-tender, non-distended, normal bowel sounds Extremities: no cyanosis, no clubbing, no edema Neurological: cranial nerve grossly intact, no focal deficits Psychiatric: normal affect, normal behavior, A&O x 3 Hosp A/P - Plan This is an 80-year-old male patient With a history of COPD, diabetes and CHF and recent Covid infection admitted on account of shortness of breath and A. fib with RVR. Currently being managed for COPD exacerbation and a possible post covid respiratory complication Acute hypoxic respiratory failure In the setting of COPD/CHF/recent Covid infection Continue steroids duo nebs and antibiotics COPD exacerbation Continue duo nebs antibioticsazithromycin and steroidsSolu-Medrol As needed oxygen Atrial fibrillation with RVR. On diltiazem and carvedilol Currently normal sinus rhythm Continue monitoring on telemetry. Cardiology following Enterococcus in 1 of 2 bottles Susceptible to Zosyn/vanc, has penicillin allergy Discontinue Levaquin. maintain vancomycin till ID review Appreciate ID review of antibiotics. Type 2 diabetes mellitus Insulin Monitor glucose Diarrhea Resolved Continue monitor Hypertension Home meds resumed Covid infection About a month ago Likely currently resolved however may have sequelae VT/resttherapeutic on Eliquis CODE STATUSfull code Dispositionpending improvement
[2020-08-31] MEDS: Atorvastatin Calcium 40 MG TAB PO SCH (22:06)
[2020-09-01] MEDS: Vancomycin 1.5 GRAM/300 ML BAG 1.5 GM in Premix Bag 1 BAG IVPB SCH ×2 (04:23→14:38)
[2020-09-01] MEDS ORDERED: Vancomycin 1 GM in Premix Bag 1 BAG IVPB SCH (05:00)
[2020-09-01] MEDS: HumaLOG 300 UNITS/3 ML VIAL SC PRN ×4 (05:38→21:55)
--- NOTE | 2020-09-01 07:36 | ULT ---
Renal sonogram HISTORY: UTI. FINDINGS: Right kidney measures up to 11.0 cm with a normal appearance. Left kidney measures up to 11 .1 cm. At the inferior pole is a 2.0 cm cyst. Tiny cyst at the superior pole. No hydronephrosis. Urinary bladder is decompressed by Hansen catheter. IMPRESSION : No evidence of urinary tract obstruction. Left renal cysts.
[2020-09-01] MEDS: methylPREDNISolone Sod Succ 40 MG VIAL IVP SCH (09:22)
[2020-09-01] MEDS: Allopurinol 100 MG TAB PO SCH (09:22)
[2020-09-01] MEDS: Carvedilol 25 MG TAB PO SCH ×2 (09:22→16:11)
[2020-09-01] MEDS: Cholecalciferol (Vitamin D3) 400 UNITS TAB PO SCH (09:23)
[2020-09-01] MEDS: Apixaban 5 MG TAB PO SCH ×2 (09:23→21:57)
[2020-09-01] MEDS: Ascorbic Acid 500 mg Chewable Tablet PO SCH (09:23)
[2020-09-01] MEDS: Amlodipine 10 MG TAB PO SCH (09:23)
[2020-09-01] MEDS: Diltiazem HCl SR 90 mg Capsule PO SCH ×2 (09:23→21:57)
[2020-09-01] MEDS: Zinc Sulfate 220 MG CAP PO SCH (09:24)
[2020-09-01] MEDS: Tamsulosin HCl 0.4 MG CAP PO SCH (09:24)
[2020-09-01] MEDS: Insulin Glargine 20 UNITS in Pre-Filled Syringe 1 EACH SC SCH (09:32)
[2020-09-01 14:26] LABS: Vancomycin, Trough 15.5 ug/mL
--- NOTE | 2020-09-01 16:55 | EKG ---
Test Reason : Blood Pressure : / mmHG Vent. Rate : 112 BPM Atrial Rate : 087 BPM P-R Int : 000 ms QRS Dur : 098 ms QT Int : 368 ms P-R-T Axes : 000 004 061 degrees QTc Int : 502 ms Atrial fibrillation with rapid ventricular response with premature ventricular or aberrantly conducte d complexes Nonspecific ST abnormality Abnormal ECG Confirmed by SANDER TRUJILLO ([id number]), research editor JO VALERIO ([id number]) on 09/01/2020 4:55:29 PM Referred By: Confirmed By:SANDER Richards
[2020-09-01] MEDS: Azithromycin 500 MG in Sodium Chloride 0.9% 250 ML 250 ML IVPB SCH (17:14)
--- NOTE | 2020-09-01 19:38 | PDOC.HOSPP ---
- Subjective Encounter Date: 09/01/20 Encounter Time: 09:00 Subjective: f/u: pneumonia The patient still has some shortness of breath. He says he was wheezing today. He doesn't have a productive cough Per nursing, PVR was 125 one hour after urinating - Objective Vital Signs & Weight: Vital Signs (12 hours) Temp Pulse Resp BP Pulse Ox 09/01/20 15:41 97.4 F L 84 18 129/79 97 09/01/20 13:55 80 24 H 09/01/20 11:43 98.0 F 86 18 120/85 96 09/01/20 09:14 97.7 F 95 20 146/64 H 91 L Weight Weight 333 lb 9.6 oz I&O: 08/31/20 09/01/20 09/02/20 06:59 06:59 06:59 Intake Total 2098 830 840 Output Total 200 1300 700 Balance 1898 -470 140 Result Diagrams: 08/31/20 07:58 08/31/20 07:58 Additional Labs: Accuchecks 09/01/20 09/01/20 08/31/20 10:42 05:12 20:25 POC Glucose 363 H 269 H 272 H Hospitalist ROS - Review of Systems Constitutional: denies: fever, chills - Medication Medications: Active Medications Generic Name Dose Route Start Last Admin Trade Name Freq PRN Reason Stop Dose Admin Albuterol/Ipratropium 3 ml 08/28/20 13:00 09/01/20 13:55 Ipratropium/Albuterol Sulfate 3 Ml Neb NEB 3 ml [id number] ALIYAH Administration Allopurinol 100 mg 08/28/20 09:00 09/01/20 09:22 Allopurinol 100 Mg Tab PO 100 mg DAILY ALIYAH Administration Amlodipine Besylate 10 mg 08/29/20 09:00 09/01/20 09:23 Amlodipine 10 Mg Tab PO 10 mg DAILY ALIYAH Administration Apixaban 5 mg 08/27/20 09:00 09/01/20 09:23 Apixaban 5 Mg Tab PO 5 mg BID ALIYAH Administration Ascorbic Acid 1,000 mg 08/27/20 09:00 09/01/20 09:23 Ascorbic Acid 500 Mg Chewable Tablet PO 1,000 mg DAILY ALIYAH Administration Atorvastatin Calcium 40 mg 08/27/20 21:00 08/31/20 22:06 Atorvastatin Calcium 40 Mg Tab PO 40 mg HS ALIYAH Administration Benzonatate 100 mg 08/27/20 10:19 08/31/20 09:16 Benzonatate 100 Mg Cap PO 100 mg Q6H PRN Administration Cough Carvedilol 25 mg 08/27/20 17:00 09/01/20 16:11 Carvedilol 25 Mg Tab PO 25 mg BID-WM ALIYAH Administration Cholecalciferol 400 units 08/27/20 09:00 09/01/20 09:23 Cholecalciferol (Vitamin D3) 400 Units Tab PO 400 units DAILY ALIYAH Administration Diltiazem HCl 90 mg 08/28/20 21:00 09/01/20 09:23 Diltiazem Hcl Sr 90 Mg Capsule PO 90 mg BID ALIYAH Administration Azithromycin 500 mg/ Sodium 250 mls @ 250 mls/hr 08/31/20 18:00 09/01/20 17:14 Chloride IVPB 250 mls 1800 ALIYAH Administration Vancomycin HCl 1.5 gm/ Device 300 mls @ 166.67 mls/hr 09/01/20 03:00 09/01/20 14:38 IVPB 300 mls 0300,1500 ALIYAH Administration Insulin Human Lispro 0 units 08/27/20 22:37 08/31/20 22:05 Humalog 300 Units/3 Ml Vial SC 3 unit .BEDTIME SLIDING SC PRN Administration Bedtime Correctional Scale Insulin Human Lispro 0 units 08/28/20 20:54 09/01/20 17:14 Humalog 300 Units/3 Ml Vial SC 8 unit .MODERATE SLIDING SC PRN Administration Moderate Correctional Scale Methylprednisolone Sodium Succinate 40 mg 08/31/20 08:00 09/01/20 09:22 Methylprednisolone Sod Succ 40 Mg Vial IVP 40 mg 0800 ALIYAH Administration Ondansetron HCl 4 mg 08/27/20 03:50 08/27/20 23:42 Ondansetron Pf 4 Mg/2 Ml Vial IVP 4 mg Q6H PRN Administration Nausea/Vomiting Pantoprazole Sodium 40 mg 08/28/20 09:00 09/01/20 09:23 Pantoprazole 40 Mg Tab PO 40 mg DAILY ALIYAH Administration Sodium Chloride 10 ml 08/27/20 09:00 09/01/20 09:24 Flush - Normal Saline 10 Ml Syringe IVF 10 ml Q12HR ALIYAH Administration Tamsulosin HCl 0.4 mg 08/28/20 09:00 09/01/20 09:24 Tamsulosin Hcl 0.4 Mg Cap PO 0.4 mg DAILY ALIYAH Administration Zinc Sulfate 220 mg 08/27/20 09:00 09/01/20 09:24 Zinc Sulfate 220 Mg Cap PO 220 mg DAILY ALIYAH Administration - Exam General Appearance: NAD, awake alert Eye: PERRL, anicteric sclera ENT: normocephalic atraumatic, no oropharyngeal lesions Neck: no JVD Heart: no murmur, no gallops, no rubs Respiratory - other findings: diminished breath sounds Gastrointestinal: soft, non-tender, non-distended Extremities: no cyanosis, no clubbing, no edema Skin: normal turgor, no lesions, no rashes Hosp A/P - Plan Chest X ray 08/26: worsening bilateral infiltrates, right greater than left REnal US: Left renal cysts Acute hypoxic respiratory failure secondary to pneumonia vs bronchitis - on vancomycin and azithromycin. Blood culture grew 1/[address] Miramontes consulted recommended ampicillin , but states will re-evaluate prior to switching - continue prednisone 40 mg IV daily - repeat chest Xray since last X ray showed worsening infiltrates. Will add pulmicort for possible COPD ? Left renal cyst - outpatient follow up Gout - continue allopurinol Type II diabetes - blood sugars in the 300's. Increase lantus to 28 units BID
[2020-09-01] MEDS ORDERED: Budesonide 0.5 MG/2 ML NEB NEB SCH (19:45)
--- NOTE | 2020-09-01 20:19 | PRG ---
DATE OF SERVICE: 09/01/2020 SUBJECTIVE: Mr. Hogan when I arrived in the room was tachypneic and feeling uncomfortable at rest. His O2 had slipped off from his right ear and was not properly positioned, his nasal cannula O2 that is, and he was saturating at 91%. He stated that his penicillin allergy was associated with angioedema and was just about a year ago. 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 He is moderately dyspneic. No abdominal pain. He is voiding in the diaper without difficulty. Skin is flushed. His O2 saturations went up to 93 with 3 L nasal cannula O2. He has bilateral inspiratory crackles in the lung velasco symmetric. S1, S2 regular rate. Abdomen is soft, not distended, and no edema noted. Able to move extremities. LABORATORY DATA: White cell count is at 8.8 yesterday and hemoglobin 13. Creatinine was 0.91 yesterday. C Diff was negative and no new microbiology available. 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 The renal ultrasound showed decompressed urinary bladder with Hansen catheter, right kidney 11 cm, left kidney 11 cm. No evidence of obstruction, and fortunately, he is not going to be able to be treated with Penicillin due to the severity of the hypersensitivity history and the recent occurrence, and an alternate approach would be to give him oral linezolid for discharge planning if his insurance will pay for it. Otherwise, he will be stuck with IV vancomycin for another week or so. The other concern is with his worsening respiratory situation he needs a repeat chest x-ray to follow up his initial findings since the last one showed interval worsening of infiltrates. Job ID: [id number] [facility]
[2020-09-01] MEDS ORDERED: traZODone HCl 150 MG TAB PO SCH (21:00)
--- NOTE | 2020-09-01 21:06 | RAD ---
EXAM: CHEST ONE VIEW HISTORY: Worsening dyspnea. Abnormal pulmonary exam. COMPARISON: 08/26/2020 FINDINGS: Cardiac silhouette is magnified by projection and patient rotation of the right, but the cardiac silh ouette appears enlarged. Increased interstitial and patchy parenchymal airspace opacities are again seen throughout the lungs bilaterally which are likely overall similar to the prior study given diffe rences in technique and patient positioning. No obvious pleural effusion is seen. No other interval change. IMPRESSION: Bilateral interstitial and patchy parenchymal airspace opacities again greater on the right. Findings may be related to Covid pneumonia in the correct clinical scenario.
[2020-09-01] MEDS: Insulin Glargine 28 UNITS in Pre-Filled Syringe SC SCH (21:56)
[2020-09-01] MEDS: Atorvastatin Calcium 40 MG TAB PO SCH (21:57)
[2020-09-02] MEDS: Vancomycin 1.5 GRAM/300 ML BAG 1.5 GM in Premix Bag 1 BAG IVPB SCH ×2 (03:13→14:07)
[2020-09-02] MEDS: Acetaminophen 500 MG TAB PO PRN ×2 (03:52→21:48)
[2020-09-02 04:22] LABS: Hemoglobin 13.2 g/dL (14.0-18.0); Mean Corpuscular HGB CONC 31.5 g/dL (32.0-36.0); Mean Corpuscular Hemoglobin 28.4 pg (27.0-31.0); Mean Corpuscular Volume 90.4 fL (78.0-98.0); Mean Platelet Volume 9.9 fL (7.4-10.4); Platelet Count 142 thou/uL (130-400); RBC Distribution Width 13.2 % (11.5-14.5); Red Blood Cell (RBC) Count 4.64 mill/uL (4.70-6.10); White Blood Cell (WBC) Count 10.2 thou/uL (4.8-10.8)
[2020-09-02 04:31] LABS: Anion Gap 15 mmol/L (10-20); BUN (Urea Nitrogen) 24 mg/dL (8.4-25.7); Calc. Creatinine Clearance 152 mL/min (70-130); Calcium 8.1 mg/dL (7.8-10.44); Carbon Dioxide 25 mmol/L (23-31); Chloride 101 mmol/L (98-107); Glucose 266 mg/dL (83-110); Potassium 4.7 mmol/L (3.5-5.1); Sodium 136 mmol/L (136-145)
[2020-09-02] MEDS: HumaLOG 300 UNITS/3 ML VIAL SC PRN ×4 (06:33→21:48)
[2020-09-02] MEDS: Budesonide 0.5 MG/2 ML NEB NEB SCH ×2 (06:59→18:54)
[2020-09-02] MEDS: Insulin Glargine 28 UNITS in Pre-Filled Syringe SC SCH ×2 (08:29→21:47)
[2020-09-02] MEDS: Ascorbic Acid 500 mg Chewable Tablet PO SCH (08:31)
[2020-09-02] MEDS: Carvedilol 25 MG TAB PO SCH ×2 (08:31→16:09)
[2020-09-02] MEDS: Amlodipine 10 MG TAB PO SCH (08:32)
[2020-09-02] MEDS: Cholecalciferol (Vitamin D3) 400 UNITS TAB PO SCH (08:32)
[2020-09-02] MEDS: Diltiazem HCl SR 90 mg Capsule PO SCH ×2 (08:32→21:48)
[2020-09-02] MEDS: methylPREDNISolone Sod Succ 40 MG VIAL IVP SCH (08:32)
[2020-09-02] MEDS: Apixaban 5 MG TAB PO SCH ×2 (08:32→21:48)
[2020-09-02] MEDS: Allopurinol 100 MG TAB PO SCH (08:32)
[2020-09-02] MEDS: Zinc Sulfate 220 MG CAP PO SCH (08:33)
[2020-09-02] MEDS: Tamsulosin HCl 0.4 MG CAP PO SCH (08:33)
[2020-09-02] MEDS: Azithromycin 500 MG in Sodium Chloride 0.9% 250 ML 250 ML IVPB SCH (17:18)
--- NOTE | 2020-09-02 17:33 | PDOC.HOSPP ---
- Subjective Encounter Date: 09/02/20 Encounter Time: 16:00 Subjective: F/u: pneumonia The patient states he feels the same compared to yesterday. Minimal cough. He is on 2.5L of oxygen, wears 2L at home. Per nurse, patient was increased to 3L last night because he appeared pale He has not been ambulating much The patient does have edema. He states he normally takes lasix 20 mg at home - Objective Vital Signs & Weight: Vital Signs (12 hours) Temp Pulse Resp BP Pulse Ox 09/02/20 16:03 97.9 F 89 19 126/82 95 09/02/20 13:44 82 16 09/02/20 11:15 97.7 F 82 19 115/64 95 09/02/20 07:34 98.0 F 87 20 135/71 100 09/02/20 07:01 97 09/02/20 06:59 92 16 Weight Weight 334 lb I&O: 09/01/20 09/02/20 09/03/20 06:59 06:59 06:59 Intake Total 830 1440 Output Total 1300 1500 Balance -470 -60 Result Diagrams: 09/02/20 03:21 09/02/20 03:20 Additional Labs: Accuchecks 09/02/20 09/02/20 09/02/20 17:24 16:43 10:54 POC Glucose 406 H 458 H 287 H 09/02/20 09/01/20 05:53 20:40 POC Glucose 261 H 364 H Hospitalist ROS - Review of Systems Constitutional: denies: fever, chills - Medication Medications: Active Medications Generic Name Dose Route Start Last Admin Trade Name Freq PRN Reason Stop Dose Admin Acetaminophen 500 mg 09/01/20 23:25 09/02/20 03:52 Acetaminophen 500 Mg Tab PO 500 mg Q6H PRN Administration Pain Albuterol/Ipratropium 3 ml 08/28/20 13:00 09/02/20 13:44 Ipratropium/Albuterol Sulfate 3 Ml Neb NEB 3 ml [id number] ALIYAH Administration Allopurinol 100 mg 08/28/20 09:00 09/02/20 08:32 Allopurinol 100 Mg Tab PO 100 mg DAILY ALIYAH Administration Amlodipine Besylate 10 mg 08/29/20 09:00 09/02/20 08:32 Amlodipine 10 Mg Tab PO 10 mg DAILY ALIYAH Administration Apixaban 5 mg 08/27/20 09:00 09/02/20 08:32 Apixaban 5 Mg Tab PO 5 mg BID ALIYAH Administration Ascorbic Acid 1,000 mg 08/27/20 09:00 09/02/20 08:31 Ascorbic Acid 500 Mg Chewable Tablet PO 1,000 mg DAILY ALIYAH Administration Atorvastatin Calcium 40 mg 08/27/20 21:00 09/01/20 21:57 Atorvastatin Calcium 40 Mg Tab PO 40 mg HS ALIYAH Administration Benzonatate 100 mg 08/27/20 10:19 08/31/20 09:16 Benzonatate 100 Mg Cap PO 100 mg Q6H PRN Administration Cough Budesonide 0.5 mg 09/02/20 06:30 09/02/20 06:59 Budesonide 0.5 Mg/2 Ml Neb NEB 0.5 mg BID-RT ALIYAH Administration Carvedilol 25 mg 08/27/20 17:00 09/02/20 16:09 Carvedilol 25 Mg Tab PO 25 mg BID-WM ALIYAH Administration Cholecalciferol 400 units 08/27/20 09:00 09/02/20 08:32 Cholecalciferol (Vitamin D3) 400 Units Tab PO 400 units DAILY ALIYAH Administration Diltiazem HCl 90 mg 08/28/20 21:00 09/02/20 08:32 Diltiazem Hcl Sr 90 Mg Capsule PO 90 mg BID ALIYAH Administration Azithromycin 500 mg/ Sodium 250 mls @ 250 mls/hr 08/31/20 18:00 09/02/20 17:18 Chloride IVPB 250 mls 1800 ALIYAH Administration Vancomycin HCl 1.5 gm/ Device 300 mls @ 166.67 mls/hr 09/01/20 03:00 09/02/20 14:07 IVPB 300 mls 0300,1500 ALIYAH Administration Insulin Glargine 28 units/ 0.28 mls @ 0 mls/hr 09/01/20 21:00 09/02/20 08:29 Miscellaneous Medication SC 0.28 mls BID ALIYAH Administration Insulin Human Lispro 0 units 08/27/20 22:37 09/01/20 21:55 Humalog 300 Units/3 Ml Vial SC 5 unit .BEDTIME SLIDING SC PRN Administration Bedtime Correctional Scale Insulin Human Lispro 0 units 08/28/20 20:54 09/02/20 17:22 Humalog 300 Units/3 Ml Vial SC 10 unit .MODERATE SLIDING SC PRN Administration Moderate Correctional Scale Ondansetron HCl 4 mg 08/27/20 03:50 08/27/20 23:42 Ondansetron Pf 4 Mg/2 Ml Vial IVP 4 mg Q6H PRN Administration Nausea/Vomiting Pantoprazole Sodium 40 mg 08/28/20 09:00 09/02/20 08:33 Pantoprazole 40 Mg Tab PO 40 mg DAILY ALIYAH Administration Sodium Chloride 10 ml 08/27/20 09:00 09/02/20 08:33 Flush - Normal Saline 10 Ml Syringe IVF 10 ml Q12HR ALIYAH Administration Tamsulosin HCl 0.4 mg 08/28/20 09:00 09/02/20 08:33 Tamsulosin Hcl 0.4 Mg Cap PO 0.4 mg DAILY ALIYAH Administration Zinc Sulfate 220 mg 08/27/20 09:00 09/02/20 08:33 Zinc Sulfate 220 Mg Cap PO 220 mg DAILY ALIYAH Administration - Exam General Appearance: NAD, awake alert Eye: PERRL, anicteric sclera ENT: normocephalic atraumatic, no oropharyngeal lesions Neck: no JVD Heart: RRR, no murmur, no gallops, no rubs Respiratory - other findings: diminished breath sounds Gastrointestinal: soft, non-tender, non-distended Extremities: no cyanosis, no clubbing, 2+ LE edema Hosp A/P - Plan Chest X ray 08/26: worsening bilateral infiltrates, right greater than left Chest X ray 09/02: bilateral pneumonia stable REnal US: Left renal cysts #Acute hypoxic respiratory failure secondary to pneumonia vs bronchitis #History of COVID+ - on vancomycin and azithromycin. Blood culture grew 1/[address] Miramontes consulted and recommended linezolid on discharge otherwise will need vanc for one week - will switch to oral prednisone, patient is down to 2.5L of oxygen. Will give one dose of 20 mg IV lasix due to edema noted on legs. Chest Xray 09/01 showed stable bilateral pneumonia. He did have COVID last month, could be residual from that Left renal cyst - outpatient follow up Gout - continue allopurinol Type II diabetes - blood sugars in the 300's, Continue lantus 28 units bid. Will d/c IV steroids
[2020-09-02] MEDS ORDERED: Furosemide 20 MG/2 ML VIAL SLOW IVP SCH (17:45)
[2020-09-02] MEDS: Atorvastatin Calcium 40 MG TAB PO SCH (21:48)
[2020-09-02] MEDS: traZODone HCl 50 MG TAB PO SCH (21:49)
[2020-09-03 02:48] LABS: Vancomycin, Trough 19.1 ug/mL
[2020-09-03] MEDS: Vancomycin 1.5 GRAM/300 ML BAG 1.5 GM in Premix Bag 1 BAG IVPB SCH ×2 (03:03→14:49)
[2020-09-03 04:39] LABS: Hemoglobin A1c 11.5 % (4.0-6.0)
[2020-09-03] MEDS: HumaLOG 300 UNITS/3 ML VIAL SC PRN ×4 (05:00→21:59)
[2020-09-03] MEDS: Budesonide 0.5 MG/2 ML NEB NEB SCH ×2 (07:22→18:19)
[2020-09-03] MEDS ORDERED: predniSONE 20 MG TAB PO SCH (08:00)
[2020-09-03] MEDS: Diltiazem HCl SR 90 mg Capsule PO SCH ×2 (08:37→21:58)
[2020-09-03] MEDS: Tamsulosin HCl 0.4 MG CAP PO SCH (08:37)
[2020-09-03] MEDS: Ascorbic Acid 500 mg Chewable Tablet PO SCH (08:38)
[2020-09-03] MEDS: Zinc Sulfate 220 MG CAP PO SCH (08:38)
[2020-09-03] MEDS: Carvedilol 25 MG TAB PO SCH ×2 (08:38→16:43)
[2020-09-03] MEDS: Allopurinol 100 MG TAB PO SCH (08:39)
[2020-09-03] MEDS: Amlodipine 10 MG TAB PO SCH (08:39)
[2020-09-03] MEDS: Cholecalciferol (Vitamin D3) 400 UNITS TAB PO SCH (08:39)
[2020-09-03] MEDS: Apixaban 5 MG TAB PO SCH ×2 (08:39→21:58)
[2020-09-03] MEDS: Insulin Glargine 28 UNITS in Pre-Filled Syringe SC SCH ×2 (08:46→21:58)
[2020-09-03] MEDS: Acetaminophen 500 MG TAB PO PRN (14:49)
[2020-09-03] MEDS: Azithromycin 500 MG in Sodium Chloride 0.9% 250 ML 250 ML IVPB SCH (17:03)
--- NOTE | 2020-09-03 18:45 | PDOC.DS.DS ---
Provider - Provider Date of Admission: 08/26/20 22:42 Date of Discharge: 09/03/20 Admitting Provider: Ishan Mcneill Primary Care Physician: ROBERTO ROMAN Course - Hospital Course Hospital Course: Discharge Diagnoses: 1. Acute hypoxic respiratory failure secondary to pneumonia vs bronchitis 2. History of COVID 3. Left renal cyst Brief HPI: This is an 80-year-old male with a past medical history of UTI, BPH presented to the emergency room for evaluation of A. fib with RVR and severe shortness of breath. He was recently discharged from the hospital where he was admitted for Covid. He normally uses 2 L of oxygen at home. X-ray in 08/26 showed new moderate sized regions of airspace opacity and consolidation in the right mid and upper lung zones and in the left mid and lower lung zones. He was given then 10 mg of IV dexamethasone and started on a diltiazem drip and admitted for further work-up. Hospital course: #Acute hypoxic respiratory failure secondary to pneumonia vs bronchitis : Patient was initially started on Levaquin and vancomycin. Blood cultures grew 1 out of 2 Enterococcus therefore the patient was switched to vancomycin and azithromycin. Patient's white blood cell count improved from 12.1-10.2. He was weaned down to 2 L of oxygen and was saturating 93%. Infectious disease was consulted and recommended that the patient switch to oral linezolid on discharge. The patient will be discharged with linezolid for an additional 6 days to complete 10-day course of therapy. Patient get a repeat chest x-ray in 6 weeks. Atrial fibrillation: Patient was initially on a Cardizem drip and was weaned off. He will be resumed on his home dose Coreg 25 mg p.o. twice daily. He was also started on diltiazem 90 mg p.o. twice daily with adequate control. 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 Cardiology was consulted here and thought his atrial fibrillation was most likely from his recent Covid. Type II Diabetes: Patient had a hemoglobin A1c of 11. His insulin was increased to 28 units subcu twice daily. This might have been due to the prednisone he was getting on the hospital. Steroids were discontinued at the time of discharge. He should consider seeing an cardiac cath tech at the time of discharge. #History of COVID+: - he was removed off isolation since he tested positive on 08/05. He is on his home dose of oxygen 2.5L. #Left renal cyst - outpatient follow up #Gout - continue allopurinol Pertinent Studies: Chest X ray 08/26: worsening bilateral infiltrates, right greater than left Chest X ray 09/02: bilateral pneumonia stable REnal US: Left renal cysts - Labs Lab Results: 09/02/20 03:21 09/02/20 03:20 Abnormal Lab Results - Last 48 hrs 09/02/20 03:21: RBC 4.64 L, Hgb 13.2 L, Hct 41.9 L, MCHC 31.5 L 09/03/20 04:15: Hemoglobin A1c 11.5 H Microbiology - Entire Visit 08/28/20 16:26 Venous blood - Right Hand Blood Culture - Final NO GROWTH IN 5 DAYS 08/28/20 16:26 Venous blood - Left Hand Blood Culture - Final NO GROWTH IN 5 DAYS 08/26/20 20:57 Venous blood - Right Hand Blood Culture - Final NO GROWTH IN 5 DAYS 08/31/20 14:42 Stool C. difficile GDH Antigen & Toxins - Final 08/26/20 20:57 Venous blood - Left Hand Blood Culture - Final Enterococcus faecalis 08/27/20 22:35 Nasal swab MRSA Screen - Final - Physical Exam Vitals: Vital Signs (12 hours) Temp Pulse Pulse Resp BP BP Pulse Ox 09/03/20 18:17 81 20 93 L 09/03/20 16:49 98.6 F 91 16 132/79 94 L 09/03/20 13:47 98 20 95 09/03/20 11:20 98.4 F 95 17 132/78 97 09/03/20 09:53 96 114/77 09/03/20 08:40 98.4 F 96 16 124/82 96 09/03/20 07:22 91 18 96 Pulse Ox 09/03/20 18:17 09/03/20 16:49 09/03/20 13:47 09/03/20 11:20 09/03/20 09:53 97 09/03/20 08:40 09/03/20 07:22 Weight Weight 338 lb Physical Exam: The patient was seen and examined on the day of discharge. General: patient is alert, awake, oriented times three CV: RRR, no murmurs, rubs, gallops Lungs: diminished breath sounds bilaterally Abdomen: +BS, soft, nontender, nondistended Extremities: mild edema Problem - Time spent with Patient (mins): 35 Plan - Discharge Medications Prescriptions: Azithromycin 250 mg PO DAILY #4 tablet Insulin Glargine [Lantus Vial] 28 units SC BID #1 vial Linezolid 600 mg PO Q12H #12 tablet Home Medications: Medication Instructions Recorded Confirmed Type Allopurinol 100 mg PO DAILY 09/15/19 08/27/20 History Omeprazole 20 mg PO DAILY 09/15/19 08/27/20 History Tamsulosin HCl 0.4 mg PO DAILY 09/15/19 08/27/20 History Apixaban [Eliquis] 5 mg PO BID 60 Days #60 tab 10/11/19 08/27/20 Rx Atorvastatin Calcium [Lipitor] 40 mg PO HS 30 Days #30 tab 10/11/19 08/27/20 Rx Carvedilol [Coreg] 25 mg PO BID-WM 30 Days #30 tab 10/12/19 08/27/20 Rx Amlodipine [Norvasc] 10 mg PO DAILY #30 tab 11/07/19 08/27/20 Rx Acetaminophen [Tylenol Regular 650 mg PO Q4H PRN tab 12/01/19 08/27/20 Rx Strength] Insulin Glargine,Hum.Rec.Anlog 12 unit SC DAILY #4 pen 12/01/19 08/27/20 Rx [Lantus Solostar] Ascorbic Acid [Vitamin C] 1,000 mg PO DAILY tab 08/23/20 08/27/20 Rx Benzonatate [Tessalon] 100 mg PO Q6H PRN #30 cap 08/23/20 08/27/20 Rx Cepastat Lozenges 1 heriberto PO Q2H PRN heriberto 08/23/20 08/27/20 Rx Diltiazem HCl [Cardizem] 30 mg PO Q6HR PRN #30 tab 08/23/20 08/27/20 Rx Azithromycin 250 mg PO DAILY #4 tablet 09/03/20 Rx Insulin Glargine [Lantus Vial] 28 units SC BID #1 vial 09/03/20 Rx Linezolid 600 mg PO Q12H #12 tablet 09/03/20 Rx Allergies: Penicillins Allergy (Verified 08/27/20 22:17) - Discharge Instructions Activity:: Activity as Tolerated Nourishment:: Diabetic Diet Therapies:: Physical Therapy - Follow up Plan Referrals: ROBERTO ROMAN [Primary Care Provider] - Disposition: HOME Quality - Care Measures CORE MEASURES:: N/A
--- NOTE | 2020-09-03 19:01 | PDOC.HOSPP ---
- Subjective Encounter Date: 09/03/20 Encounter Time: 16:00 Subjective: F/u: shortness of breath, pneumonia The patient feels his breathing is better. He has only a mild cough - Objective Vital Signs & Weight: Vital Signs (12 hours) Temp Pulse Pulse Resp BP BP Pulse Ox 09/03/20 18:17 81 20 93 L 09/03/20 16:49 98.6 F 91 16 132/79 94 L 09/03/20 13:47 98 20 95 09/03/20 11:20 98.4 F 95 17 132/78 97 09/03/20 09:53 96 114/77 09/03/20 08:40 98.4 F 96 16 124/82 96 09/03/20 07:22 91 18 96 Pulse Ox 09/03/20 18:17 09/03/20 16:49 09/03/20 13:47 09/03/20 11:20 09/03/20 09:53 97 09/03/20 08:40 09/03/20 07:22 Weight Weight 338 lb I&O: 09/02/20 09/03/20 09/04/20 06:59 06:59 06:59 Intake Total 1440 1430 1750 Output Total 1500 1000 500 Balance -60 430 1250 Result Diagrams: 09/02/20 03:21 09/02/20 03:20 Additional Labs: Accuchecks 09/03/20 09/03/20 09/03/20 16:55 10:24 04:39 POC Glucose 390 H 337 H 274 H 09/02/20 09/01/20 09/01/20 20:30 16:46 16:45 POC Glucose 404 H 345 H 400 H Hospitalist ROS - Review of Systems Constitutional: denies: fever, chills - Medication Medications: Active Medications Generic Name Dose Route Start Last Admin Trade Name Freq PRN Reason Stop Dose Admin Acetaminophen 500 mg 09/01/20 23:25 09/03/20 14:49 Acetaminophen 500 Mg Tab PO 500 mg Q6H PRN Administration Pain Albuterol/Ipratropium 3 ml 08/28/20 13:00 09/03/20 18:17 Ipratropium/Albuterol Sulfate 3 Ml Neb NEB 3 ml [id number] ALIYAH Administration Allopurinol 100 mg 08/28/20 09:00 09/03/20 08:39 Allopurinol 100 Mg Tab PO 100 mg DAILY ALIYAH Administration Amlodipine Besylate 10 mg 08/29/20 09:00 09/03/20 08:39 Amlodipine 10 Mg Tab PO 10 mg DAILY ALIYAH Administration Apixaban 5 mg 08/27/20 09:00 09/03/20 08:39 Apixaban 5 Mg Tab PO 5 mg BID ALIYAH Administration Ascorbic Acid 1,000 mg 08/27/20 09:00 09/03/20 08:38 Ascorbic Acid 500 Mg Chewable Tablet PO 1,000 mg DAILY ALIYAH Administration Atorvastatin Calcium 40 mg 08/27/20 21:00 09/02/20 21:48 Atorvastatin Calcium 40 Mg Tab PO 40 mg HS ALIYAH Administration Benzonatate 100 mg 08/27/20 10:19 08/31/20 09:16 Benzonatate 100 Mg Cap PO 100 mg Q6H PRN Administration Cough Budesonide 0.5 mg 09/02/20 06:30 09/03/20 18:19 Budesonide 0.5 Mg/2 Ml Neb NEB 0.5 mg BID-RT ALIYAH Administration Carvedilol 25 mg 08/27/20 17:00 09/03/20 16:43 Carvedilol 25 Mg Tab PO 25 mg BID-WM ALIYAH Administration Cholecalciferol 400 units 08/27/20 09:00 09/03/20 08:39 Cholecalciferol (Vitamin D3) 400 Units Tab PO 400 units DAILY ALIYAH Administration Diltiazem HCl 90 mg 08/28/20 21:00 09/03/20 08:37 Diltiazem Hcl Sr 90 Mg Capsule PO 90 mg BID ALIYAH Administration Azithromycin 500 mg/ Sodium 250 mls @ 250 mls/hr 08/31/20 18:00 09/03/20 17:03 Chloride IVPB 250 mls 1800 ALIYAH Administration Vancomycin HCl 1.5 gm/ Device 300 mls @ 166.67 mls/hr 09/01/20 03:00 09/03/20 14:49 IVPB 300 mls 0300,1500 ALIYAH Administration Insulin Glargine 28 units/ 0.28 mls @ 0 mls/hr 09/01/20 21:00 09/03/20 08:46 Miscellaneous Medication SC 0.28 mls BID ALIYAH Administration Insulin Human Lispro 0 units 08/27/20 22:37 09/02/20 21:48 Humalog 300 Units/3 Ml Vial SC 5 unit .BEDTIME SLIDING SC PRN Administration Bedtime Correctional Scale Insulin Human Lispro 0 units 08/28/20 20:54 09/03/20 17:42 Humalog 300 Units/3 Ml Vial SC 10 unit .MODERATE SLIDING SC PRN Administration Moderate Correctional Scale Ondansetron HCl 4 mg 08/27/20 03:50 08/27/20 23:42 Ondansetron Pf 4 Mg/2 Ml Vial IVP 4 mg Q6H PRN Administration Nausea/Vomiting Pantoprazole Sodium 40 mg 08/28/20 09:00 09/03/20 08:39 Pantoprazole 40 Mg Tab PO 40 mg DAILY ALIYAH Administration Prednisone 40 mg 09/03/20 08:00 09/03/20 08:38 Prednisone 20 Mg Tab PO 40 mg QAM-WM ALIYAH Administration Sodium Chloride 10 ml 08/27/20 09:00 09/03/20 08:40 Flush - Normal Saline 10 Ml Syringe IVF 10 ml Q12HR ALIYAH Administration Tamsulosin HCl 0.4 mg 08/28/20 09:00 09/03/20 08:37 Tamsulosin Hcl 0.4 Mg Cap PO 0.4 mg DAILY ALIYAH Administration Trazodone HCl 150 mg 09/02/20 21:00 09/02/20 21:49 Trazodone Hcl 50 Mg Tab PO 150 mg HS ALIYAH Administration Zinc Sulfate 220 mg 08/27/20 09:00 09/03/20 08:38 Zinc Sulfate 220 Mg Cap PO 220 mg DAILY ALIYAH Administration - Exam General Appearance: NAD, awake alert Eye: PERRL, anicteric sclera ENT: normocephalic atraumatic, no oropharyngeal lesions Neck: no JVD Heart: RRR, no murmur, no gallops, no rubs Respiratory: CTAB, no wheezes, no rales, no ronchi Gastrointestinal: soft, non-tender, non-distended, normal bowel sounds Extremities: no cyanosis, no clubbing, no edema Skin: normal turgor, no lesions, no rashes Neurological: cranial nerve grossly intact, normal sensation to touch Musculoskeletal: normal tone, normal strength, no muscle wasting Hosp A/P - Plan Consults: Hospice Chest X ray 08/26: worsening bilateral infiltrates, right greater than left Chest X ray 09/02: bilateral pneumonia stable REnal US: Left renal cysts #Acute hypoxic respiratory failure secondary to pneumonia vs bronchitis #History of COVID+ - on vancomycin and azithromycin. Blood culture grew 1/[address] Miramontes consulted and recommended linezolid on discharge otherwise will need vanc for one week - patient is down to 2L of oxygen. Continue vancomycin and azithromycin. Switch to linezolid on discharge until 09/08 Atrial fibrillation -continue diltiazem 90 mg bid and coreg [address] Jj consulted, no further recommendations Left renal cyst - outpatient follow up Gout - continue allopurinol Type II diabetes - blood sugars in the 300's, Continue lantus 28 units bid. Will d/c IV steroids
[2020-09-03] MEDS: Atorvastatin Calcium 40 MG TAB PO SCH (21:58)
[2020-09-03] MEDS: traZODone HCl 50 MG TAB PO SCH (21:58)
[2020-09-04] MEDS: Vancomycin 1.5 GRAM/300 ML BAG 1.5 GM in Premix Bag 1 BAG IVPB SCH ×2 (03:05→16:04)
[2020-09-04] MEDS: Budesonide 0.5 MG/2 ML NEB NEB SCH ×2 (08:00→18:36)
[2020-09-04] MEDS: Ascorbic Acid 500 mg Chewable Tablet PO SCH (08:30)
[2020-09-04] MEDS: Cholecalciferol (Vitamin D3) 400 UNITS TAB PO SCH (08:31)
[2020-09-04] MEDS: Apixaban 5 MG TAB PO SCH (08:31)
[2020-09-04] MEDS: Allopurinol 100 MG TAB PO SCH (08:31)
[2020-09-04] MEDS: Diltiazem HCl SR 90 mg Capsule PO SCH (08:31)
[2020-09-04] MEDS: Carvedilol 25 MG TAB PO SCH ×2 (08:31→16:04)
[2020-09-04] MEDS: Amlodipine 10 MG TAB PO SCH (08:31)
[2020-09-04] MEDS: Tamsulosin HCl 0.4 MG CAP PO SCH (08:31)
[2020-09-04] MEDS: Zinc Sulfate 220 MG CAP PO SCH (08:32)
[2020-09-04] MEDS: Insulin Glargine 28 UNITS in Pre-Filled Syringe SC SCH (10:29)
[2020-09-04 14:30] LABS: Vancomycin, Trough 16.7 ug/mL
[2020-09-04 15:35] VITALS: BP 118/73
[2020-09-04] MEDS: Azithromycin 500 MG in Sodium Chloride 0.9% 250 ML 250 ML IVPB SCH (18:11)
[2020-09-04] MEDS: HumaLOG 300 UNITS/3 ML VIAL SC PRN (18:12)
--- NOTE | 2020-09-04 18:48 | PDOC.EVN ---
Event Note - Event Note Event Note: Was seen and examined on the day of discharge. He denies any new complaints. Denies shortness of breath or cough. Physical exam: Vital stable, lungs decreased breath sounds at the bases. Heart rate regular rate and rhythm with no murmurs rubs or gallops. Legs show 1+ edema Stable for discharge today. Please refer to discharge summary
[2020-09-04 22:32] VITALS: TEMP 97.8
== END 2020-09-04 20:32 | disposition home or self-care (01) | DRG 193 ==
LOC: ERS 19:57 → ERHOLD 22:42 → 2NO 08-27 19:59
PROVIDERS: ADMIT Internal Medicine; ATTEND Internal Medicine
DX: J12.82 Pneumonia due to coronavirus disease 2019 (principal); J96.21 Acute and chronic respiratory failure with hypoxia; I50.32 Chronic diastolic (congestive) heart failure; J44.1 Chronic obstructive pulmonary disease with (acute) exacerbation; J44.0 Chronic obstructive pulmonary disease with (acute) lower respiratory infection; E66.2 Morbid (severe) obesity with alveolar hypoventilation; I42.9 Cardiomyopathy, unspecified; Z68.42 Body mass index [BMI] 45.0-49.9, adult; I48.91 Unspecified atrial fibrillation; E11.65 Type 2 diabetes mellitus with hyperglycemia; M10.9 Gout, unspecified; N40.0 Benign prostatic hyperplasia without lower urinary tract symptoms; L89.152 Pressure ulcer of sacral region, stage 2; Z86.16 Personal history of COVID-19; E78.00 Pure hypercholesterolemia, unspecified; I11.0 Hypertensive heart disease with heart failure; Z99.81 Dependence on supplemental oxygen; Z88.0 Allergy status to penicillin; Z79.899 Other long term (current) drug therapy; Z79.01 Long term (current) use of anticoagulants; Z79.51 Long term (current) use of inhaled steroids; Z79.4 Long term (current) use of insulin; R19.7 Diarrhea, unspecified; N28.1 Cyst of kidney, acquired; J20.9 Acute bronchitis, unspecified
CPT/HCPCS: 36415; 36416; 71045; 76770; 80048; 80053; 80202; 81003; 81015; 82565; 82728; 83036; 83615; 83880; 84145; 84484; 85025; 85027; 85379; 87040; 87077; 87081; 87149; 87186; 87324; 87449; 93005; 94640; 96374; 96375; J0456; J1100; J1815; J1940; J1956; J2405; J2920; J2930; J3370; J3490; J7030; J7050; J7512; J7611; J7620; J7626; Q0162

== ENCOUNTER 2020-09-08 18:07 | Inpatient (IN) | payer MEDICARE ==
[~2020-09-08 18:07] MED LIST: Succinylcholine 200 MG/10 ml SYRINGE FS ONE
[2020-09-08] MEDS ORDERED: Furosemide 40 MG/4 ML VIAL ONE (18:20)
[2020-09-08] MEDS ORDERED: Magnesium 2 GM/50 ML BAG (IN WATER) ONE (18:20)
[2020-09-08] MEDS ORDERED: methylPREDNISolone Sod Succ/PF 125 MG/2 ML VIAL ONE (18:27)
[2020-09-08] MEDS ORDERED: Albuterol Sulfate 2.5 mg/3 ml Neb ONE (18:48)
[2020-09-08 19:03] LABS: Actual Bicarbonate (HCO3a) 18.2 mEq/L (22-28); Analyzer IN Cardio ER; Base Excess (BEa) -6.2 mEq/L (-2.0 to +3.0); CO2 Tension 33.1 mmHg (35.0-45.0); Calcium, Ionized (arterial) 1.16 mmol/L (1.12-1.30); Carboxyhemoglobin (COHb) 0.3 gm% (0.0-3.0); Hemoglobin (Hb) 14.4 g/dL (14.0-18.0); O2 Tension (PaO2), arterial 79.8 mmHg (> 60.0); Potassium - ABG Lab 4.23 mmol/L (3.70-5.30); pH, Arterial 7.36 (7.35-7.45)
[2020-09-08 19:14] LABS: ALV-art Gradient 591.825 mmHg (0-20); Puncture Site RRA
[2020-09-08] MEDS ORDERED: Diltiazem 125 MG/25 ML ONE ×2 (19:43→22:13)
[2020-09-08] MEDS ORDERED: Electrolyte Replacement Protocol 1 EACH IVPB SCH (20:03)
[2020-09-08] MEDS ORDERED: Ipratropium Oral Inhaler INH PRN (20:11)
[2020-09-08] MEDS ORDERED: Diltiazem 125 MG in Sodium Chloride 0.9% 100 ML IVPB SCH (20:15)
--- NOTE | 2020-09-08 20:18 | PDOC.HHP ---
Hospitalist HPI - History of Present Illness Shortness of breath History of Present Illness: 80-year-old gentleman with a history of COPD, CHF, coronary artery disease, hypertension, diabetes and obesity was transferred from [facility] due to respiratory failure. Patient was diagnosed with Covid pneumonia on August 05, 2020, since then has been hospitalized multiple times for Covid pneumonia. Patient was discharged from this hospital after admission for acute respiratory failure secondary to Covid pneumonia about 5 days ago. One of his blood cultures grew Enterococcus which was treated initially with Levaquin and vancomycin and then transitioned to oral Zyvox on discharge. Patient presented to [facility] for worsening shortness of breath. He was noted to be in A. fib with RVR with heart rate in the 150s for which he was started on Cardizem drip. He was desaturating to 81% on room air. Patient was placed on CPAP. His lactic acid was elevated to 2.9. Patient also had leukocytosis, and meets criteria for sepsis. He was given a bolus of normal saline before transfer. Patient was given another NS bolus here in the ED. His heart rate was still in the 140s when I saw him for admission. Patient was placed on BiPAP. Chest x-ray showed no interval change in moderate bilateral infiltrates. Patient was hospitalized to [facility] for further management. Hospitalist ROS - Review of Systems Other: Except as documented, all other systems reviewed and negative. Hospitalist History - Past Medical History Cardiac: reports: AFIB, CAD, CHF, HTN Endocrine: reports: Diabetes, Other (Hyperlipidemia) Other Medical History: Gout - Past Surgical History Other Surgical History: Hemorrhoid surgery - Family History Family History: reports: no pertinent history Other Family History: Diabetes runs in the family. - Social History Alcohol: reports: None Drugs: reports: none - Exam General Appearance: awake alert General - other findings: Obese Eye: PERRL, anicteric sclera ENT: normocephalic atraumatic ENT - other findings: BiPAP applied Neck: supple, symmetric Heart: no murmur, irregular (Rapid) Respiratory: rales (Bibasilar regions) Gastrointestinal: soft, non-tender, non-distended Extremities: no cyanosis, no edema Skin: normal turgor Skin - other findings: Sacral decubitus ulcer Neurological: cranial nerve grossly intact, no focal deficits Musculoskeletal: normal tone, normal strength Psychiatric: normal affect, A&O x 3 Hospitalist Results - Labs Lab results: ABG pH 7.36 (7.35-7.45) 09/08/20 19:05 ABG pCO2 33.1 mmHg (35.0-45.0) L 09/08/20 19:05 ABG pO2 79.8 mmHg (> 60.0) H 09/08/20 19:05 Lactic Acid 3.1 mmol/L (0.5-2.2) H 09/08/20 18:43 Troponin I 0.013 ng/mL (< 0.028) 09/08/20 18:43 Additional comment: WBC 12.7. Lactate 3.1. - Radiology Interpretation Chest x-ray Status: report reviewed by me (No change in moderate bilateral infiltrates.) Hospitalist H&P A/P - Problem (1) Rapid atrial fibrillation Code(s): I48.91 - UNSPECIFIED ATRIAL FIBRILLATION Status: Acute (2) Acute respiratory failure with hypoxia Code(s): J96.01 - ACUTE RESPIRATORY FAILURE WITH HYPOXIA Status: Acute (3) Pneumonia due to 2019-nCoV Code(s): U07.1 - COVID-19; J12.89 - OTHER VIRAL PNEUMONIA Status: Acute (4) Sepsis Code(s): A41.9 - SEPSIS, UNSPECIFIED ORGANISM Status: Acute (5) Sacral decubitus ulcer Code(s): L89.159 - PRESSURE ULCER OF SACRAL REGION, UNSPECIFIED STAGE Status: Acute (6) Physical deconditioning Code(s): R53.81 - OTHER MALAISE Status: Acute (7) Obstructive sleep apnea Code(s): G47.33 - OBSTRUCTIVE SLEEP APNEA (ADULT) (PEDIATRIC) Status: Chronic - Plan Plan: Admit patient to IMCU Continue BiPAP therapy started in the ED. We will order Levaquin and vancomycin to treat possible secondary bacterial infection. Start IV steroid. Repeat COVID-19 test since patient tested positive 1-month ago. Aggressive insulin sliding scale for glucose management. Resume long-acting insulin once patient tolerates feeding. Continue Cardizem drip. Resume home doses Coreg and oral Cardizem and wean off Cardizem drip as tolerated. Obtain blood cultures. Patient given IV fluid in the ED. We will hold off further IV fluid given history of CHF. Repeat lactate
[2020-09-08 21:07] LABS: SARS-CoV-2 NAA Rapid Test DETECTED (NotDetected)
[2020-09-08] MEDS: Diltiazem HCl SR 90 mg Capsule PO SCH (23:00)
[2020-09-08] MEDS: Atorvastatin Calcium 40 MG TAB PO SCH (23:00)
[2020-09-08] MEDS ORDERED: methylPREDNISolone Sod Succ 40 MG VIAL ONE (23:16)
[2020-09-08] MEDS ORDERED: Famotidine/PF 20 mg/2ml Vial ONE (23:17)
[2020-09-08 23:20] LABS: Lactic Acid 2.9 mmol/L (0.5-2.2)
[2020-09-08] MEDS: Apixaban 5 MG TAB PO SCH (23:30)
[2020-09-08] MEDS: Vancomycin 1.5 GRAM/300 ML BAG 1.5 GM in Premix Bag 1 BAG IVPB SCH (23:30)
[2020-09-08] MEDS: Famotidine/PF 20 mg/2ml Vial SLOW IVP SCH (23:30)
[2020-09-08] MEDS: methylPREDNISolone Sod Succ 40 MG VIAL IVP SCH (23:30)
[2020-09-09] MEDS ORDERED: Lorazepam 2 MG/ML VIAL ONE ×4 (02:27→08:06)
[2020-09-09] MEDS ORDERED: Lorazepam 2 MG/ML VIAL SLOW IVP SCH (02:30)
[2020-09-09] MEDS ORDERED: Propofol 1,000 MG/100 ML VIAL IV ONE (05:03)
[2020-09-09] MEDS ORDERED: Ventilator Sedation Protocol 1 EACH FS ONE (05:10)
[2020-09-09] MEDS ORDERED: Fentanyl 100 MCG/2 ML VIAL ONE ×4 (05:14→08:14)
[2020-09-09] MEDS ORDERED: Propofol BOLUS 1,000 MG/100 ML VIAL IV PRN ×2 (05:15→07:30)
[2020-09-09] MEDS ORDERED: Lorazepam 2 MG/ML VIAL SLOW IVP PRN (05:15)
[2020-09-09] MEDS ORDERED: Fentanyl BOLUS 250 ML IVPB PRN ×2 (05:15→07:30)
[2020-09-09] MEDS ORDERED: Propofol 1,000 MG/100 ML VIAL IV PRN (05:15)
[2020-09-09] MEDS ORDERED: Morphine 2 MG/ML VIAL SLOW IVP PRN (05:15)
[2020-09-09] MEDS ORDERED: DISCONTINUE PREVIOUS NARCOTIC PAIN MEDICATIONS AND BENZODIAZEPINES FS SCH ×2 (05:15→07:30)
--- NOTE | 2020-09-09 05:28 | PDOC.BPN ---
- Brief Progress Note Encounter Date: 09/09/20 Encounter Time: 04:35 Patient developed more respiratory distress and was not tolerating the BiPAP or high flow oxygen. On examination, noted respiratory distress with use of accessory muscles of respiration, paradoxical abdominal movement, respiratory rate of 44, heart rate up to 145. I discussed intubation and mechanical ventilation. Patient agreed to intubation. He is successfully intubated and started on propofol drip. Critical care time: 42 minutes
[2020-09-09 05:38] LABS: Actual Bicarbonate (HCO3a) 14.3 mEq/L (22-28); Analyzer IN Cardio ER; Base Excess (BEa) -13.2 mEq/L (-2.0 to +3.0); CO2 Tension 38.9 mmHg (35.0-45.0); Calcium, Ionized (arterial) 1.13 mmol/L (1.12-1.30); Carboxyhemoglobin (COHb) 0.2 gm% (0.0-3.0); Hemoglobin (Hb) 14.6 g/dL (14.0-18.0); O2 Tension (PaO2), arterial 67.2 mmHg (> 60.0); Potassium - ABG Lab 5.32 mmol/L (3.70-5.30)
[2020-09-09 05:39] LABS: Puncture Site RRA; pH, Arterial 7.18 (7.35-7.45)
[2020-09-09 05:40] LABS: ALV-art Gradient 597.175 mmHg (0-20)
[2020-09-09 07:12] LABS: Hemoglobin 12.7 g/dL (14.0-18.0); Mean Corpuscular HGB CONC 31.7 g/dL (32.0-36.0); Mean Corpuscular Hemoglobin 29.5 pg (27.0-31.0); Mean Platelet Volume 9.8 fL (7.4-10.4); Platelet Count 215 thou/uL (130-400); RBC Distribution Width 13.7 % (11.5-14.5); Red Blood Cell (RBC) Count 4.32 mill/uL (4.70-6.10); White Blood Cell (WBC) Count 16.6 thou/uL (4.8-10.8)
[2020-09-09 07:26] LABS: ALT (SGPT) 32 U/L (8-55); AST (SGOT) 27 U/L (5-34); Albumin 2.7 g/dL (3.4-4.8); Alkaline Phosphatase 77 U/L (40-110); Anion Gap 30 mmol/L (10-20); BUN (Urea Nitrogen) 28 mg/dL (8.4-25.7); Bilirubin, Total 1.2 mg/dL (0.2-1.2); Calc. Creatinine Clearance 0 mL/min (70-130); Calcium 8.1 mg/dL (7.8-10.44); Carbon Dioxide 11 mmol/L (23-31); Chloride 102 mmol/L (98-107); Globulin 3.5 g/dL (2.4-3.5); Glucose 342 mg/dL (83-110); Potassium 5.8 mmol/L (3.5-5.1); Protein, Total 6.2 g/dL (5.8-8.1); Sodium 137 mmol/L (136-145)
[2020-09-09] MEDS ORDERED: fentaNYL Citrate/PF 2,000 MCG in Sodium Chloride 0.9% 60 ML IV SCH (07:30)
[2020-09-09] MEDS ORDERED: Digoxin 0.5 MG/2 ML AMP SLOW IVP SCH (07:30)
[2020-09-09] MEDS: methylPREDNISolone Sod Succ 40 MG VIAL IVP SCH ×4 (07:42→23:45)
[2020-09-09] MEDS ORDERED: Norepinephrine 8 MG/0.9% NS 250 ML ONE (08:04)
[2020-09-09] MEDS ORDERED: Digoxin 0.5 MG/2 ML AMP ONE (08:07)
[2020-09-09 08:13] LABS: Band 2 % (5-11); Lymphocytes 3 % (21-51); MDiff Complete? YES; Monocytes 2 % (0-10); Neutrophil 93 % (42-75); Platelet Morphology Comment Appears Adequate; RBC Morphology Normal
[2020-09-09] MEDS: Lorazepam 2 MG/ML VIAL SLOW IVP PRN ×2 (08:14→08:59)
[2020-09-09] MEDS: Carvedilol 25 MG TAB PO SCH ×3 (08:40→16:37)
[2020-09-09] MEDS: fentaNYL Citrate/PF 2,000 MCG in Sodium Chloride 0.9% 60 ML IV SCH (08:54)
[2020-09-09] MEDS: Vancomycin 1.5 GRAM/300 ML BAG 1.5 GM in Premix Bag 1 BAG IVPB SCH ×2 (10:03→21:14)
[2020-09-09] MEDS: Famotidine/PF 20 mg/2ml Vial SLOW IVP SCH ×2 (10:05→21:12)
[2020-09-09] MEDS: Tamsulosin HCl 0.4 MG CAP PO SCH (10:05)
[2020-09-09] MEDS: Apixaban 5 MG TAB PO SCH ×2 (10:05→21:12)
--- NOTE | 2020-09-09 10:20 | RAD ---
AP CHEST: Date: 09/09/2020 HISTORY: COVID pneumonia follow-up. CCU follow-up. On ventilator. COMPARISON: 09/08/2020. FINDINGS/IMPRESSION: ET tube has been placed. Cardiomegaly. Confluent patchy infiltrate in the left mid lung. Bilateral ef fusions and bibasilar infiltrates and/or atelectasis. Hazy infiltrate and/or edema in both mid lung f ields. Right lung is suboptimally evaluated due to positioning. No evidence of significant interval change. POS: AGW
[2020-09-09] MEDS ORDERED: Norepinephrine 8 MG in Dextrose 5% in Water 242 ML IVPB PRN (10:45)
[2020-09-09] MEDS ORDERED: Fentanyl 100 MCG/2 ML VIAL SLOW IVP SCH (10:45)
[2020-09-09] MEDS: Propofol 1,000 MG/100 ML VIAL IV PRN ×3 (10:52→21:12)
[2020-09-09] MEDS: Diltiazem HCl SR 90 mg Capsule PO SCH ×2 (11:00→21:45)
--- NOTE | 2020-09-09 12:25 | RAD ---
PORTABLE CHEST: Date: 09/09/2020 HISTORY: Assess line placement. COMPARISON: 09/01/2020 and 09/09/2020. FINDINGS/IMPRESSION: ET tube and NG tube remain in place. A central line via the left jugular crosses the midline and the tip overlies the region of the upper SVC. The patient is rotated, which distorts positioning. Confluent infiltrate in the right upper lung and left mid lung with bilateral effusion. Poor inspirat ion degrades the exam. No significant change in the appearance of the infiltrates and effusions. POS: AGW
--- NOTE | 2020-09-09 14:19 | PDOC.HOSPP ---
- Subjective Encounter Date: 09/09/20 Encounter Time: 14:15 Subjective: f/u for resp failure/COVID PNA/A-fib RVR on current mech ventilation. Receiving Levaquin/Meropenem/Vancomycin/Levophed gtt. - Objective Vital Signs & Weight: Vital Signs (12 hours) Pulse 09/09/20 10:26 109 H 09/09/20 08:17 118 H 09/09/20 08:13 118 H 09/09/20 07:06 118 H Weight Admit Weight 321 lb 3.416 oz Most Recent Monitor Data Heart Rate from ECG 109 NIBP 106/69 NIBP BP-Mean 81 Respiration from ECG 28 SpO2 92 I&O: 09/08/20 09/09/20 09/10/20 06:59 06:59 06:59 Output Total 100 Balance -100 Result Diagrams: 09/09/20 06:47 09/09/20 06:47 Additional Labs: Microbiology 09/08/20 13:55 Venous blood - Right Arm Blood Culture - Preliminary Specimen has been received and culture in [facility]. No Growth to date. 09/08/20 13:45 Venous blood - Right Arm Blood Culture - Preliminary Specimen has been received and culture in progress. No Growth to date. Laboratory Tests 09/08/20 09/08/20 09/08/20 13:45 18:43 20:13 Carbon Dioxide 20 L Creatinine 1.09 Lactic Acid 3.1 H Influenza A RNA INAAT Not Detected Influenza B RNA INAAT Not Detected SARS-CoV-2 Rap RNA(RT-PCR) DETECTED A* 09/08/20 09/08/20 21:27 22:52 Carbon Dioxide Creatinine Lactic Acid 2.0 2.9 H Influenza A RNA INAAT Influenza B RNA INAAT SARS-CoV-2 Rap RNA(RT-PCR) Radiology Reviewed by me: Yes (PCXR - bilat infiltrates/effusions, ETT in place) EKG Reviewed by me: Yes (Tele - A-fib in 110's) Hospitalist ROS - Medication Medications: Active Medications Generic Name Dose Route Start Last Admin Trade Name Freq PRN Reason Stop Dose Admin Apixaban 5 mg 09/08/20 21:00 09/09/20 10:05 Apixaban 5 Mg Tab PO 5 mg BID ALIYAH Administration Atorvastatin Calcium 40 mg 09/08/20 21:00 09/08/20 23:00 Atorvastatin Calcium 40 Mg Tab PO 40 mg HS ALIYAH Administration Carvedilol 25 mg 09/08/20 08:00 09/09/20 11:30 Carvedilol 25 Mg Tab PO Not Given BID-WM ALIYAH Diltiazem HCl 90 mg 09/08/20 21:00 09/09/20 11:00 Diltiazem Hcl Sr 90 Mg Capsule PO Not Given BID ALIYAH Famotidine 20 mg 09/08/20 21:00 09/09/20 10:05 Famotidine/Pf 20 Mg/2ml Vial SLOW IVP 20 mg Q12HR ALIYAH Administration Levofloxacin 750 mg/ Device 150 mls @ 100 mls/hr 09/08/20 21:00 09/09/20 00:45 IVPB 150 mls Q24HR ALIYAH Administration Vancomycin HCl 1.5 gm/ Device 300 mls @ 200 mls/hr 09/08/20 22:00 09/09/20 10:03 IVPB 300 mls 1000,2200 ALIYAH Administration Fentanyl Citrate 2,000 mcg/ 100 mls @ 0 mls/hr 09/09/20 05:15 09/09/20 08:54 Sodium Chloride IV 10/09/20 05:15 100 mls INF ALIYAH Administration Protocol Per Protocol Lorazepam 2 mg 09/09/20 07:30 09/09/20 08:59 Lorazepam 2 Mg/Ml Vial SLOW IVP 10/09/20 07:30 2 mg Q1H PRN Administration Breakthrough agitation Methylprednisolone Sodium Succinate 40 mg 09/08/20 23:59 09/09/20 12:42 Methylprednisolone Sod Succ 40 Mg Vial IVP 40 mg Q6HR ALIYAH Administration Propofol 1,000 mg 09/09/20 07:30 09/09/20 10:52 Propofol 1,000 Mg/100 Ml Vial IV 10/09/20 07:30 1,000 mg INF PRN Administration TO ACHIEVE GOAL RASS Protocol Sodium Chloride 10 ml 09/09/20 09:00 09/09/20 11:01 Flush - Normal Saline 10 Ml Syringe IVF Not Given Q12HR ALIYAH Tamsulosin HCl 0.4 mg 09/09/20 09:00 09/09/20 10:05 Tamsulosin Hcl 0.4 Mg Cap PO 0.4 mg DAILY ALIYAH Administration - Exam General Appearance: ill appearing General - other findings: unresponsive, somnolent Eye: anicteric sclera ENT: normocephalic atraumatic, no oropharyngeal lesions ENT - other findings: ETT in place Neck: supple, symmetric, no JVD, no thyromegaly, no lymphadenopathy Heart: no gallops, no rubs, normal peripheral pulses, irregular Heart - other findings: S1, S2 Respiratory: tachypneic Respiratory - other findings: diminished in bases bilat, coarse Gastrointestinal: soft, non-distended, normal bowel sounds, no palpable masses Gastrointestinal - other findings: obese Extremities: no cyanosis, 1+ LE edema Skin: normal turgor Neurological - other findings: sedate on mech vent Psychiatric: somnolent, lethargic Hosp A/P (1) Pneumonia due to 2019-nCoV Code(s): U07.1 - COVID-19; J12.89 - OTHER VIRAL PNEUMONIA Status: Acute Plan: Continue Levaquin/Meropenem/Vancomycin, de-escalate coverage in 24h (2) Acute respiratory failure with hypoxia Code(s): J96.01 - ACUTE RESPIRATORY FAILURE WITH HYPOXIA Status: Acute Plan: Continue mech ventilation, serial PCXR, ABG's (3) Sepsis Code(s): A41.9 - SEPSIS, UNSPECIFIED ORGANISM Status: Acute Qualifiers: Severe sepsis shock status: with septic shock Plan: Likely pulmonary source, continue IV abx as outlined in #1, general sepsis protocol (4) Atrial fibrillation with rapid ventricular response Code(s): I48.91 - UNSPECIFIED ATRIAL FIBRILLATION Status: Acute Plan: Rate improved, continue rate-control measures with Diltiazem/Carvedilol (5) Acute renal failure Status: Acute Plan: Likely due to infectious proces and hypoperfusion due to sepsis, IVF's, avoid nephrotoxic meds and limit contrast (6) Morbid obesity Code(s): E66.01 - MORBID (SEVERE) OBESITY DUE TO EXCESS CALORIES Status: Chronic - Plan continue antibiotics, clinical social work aide, respiratory therapy, DVT proph w/SCDs Continue critical support Mech ventilation with SIMV Rate-control measures for A-fib Continue IV Levaquin/Meropenem/Vancomycin Ventilator sedation protocol AM lab: CMP, CBC, Vanc trough
--- NOTE | 2020-09-09 16:53 | CON ---
DATE OF CONSULTATION: 09/09/2020 HISTORY OF PRESENT ILLNESS: Pete Hogan is an 80-year-old male who was admitted to the hospital yesterday. He had COVID in early July. He was intubated today after telling the caregivers that he was getting tired on BiPAP. He also became extremely tachycardic. PAST MEDICAL HISTORY: Obtained from old records. Remarkable for: 1. Obesity. 2. Sleep apnea. 3. COPD. 4. Cardiomyopathy. 5. Atrial fibrillation. 6. History of systolic cardiomyopathy by echocardiogram in the past. 7. History of diabetes. 8. History of hypertension. SOCIAL HISTORY: He is a nonsmoker, not a daily drinker. ALLERGIES: HE REPORTS CIPRO ALLERGIES AND PENICILLIN ALLERGIES. FAMILY HISTORY: Negative for lung disease in early age. MEDICATIONS: Have been reviewed. PHYSICAL EXAMINATION: GENERAL: He is intubated. He is sedated. VITAL SIGNS: Heart rate is 101, respiratory rate is in the 20s, blood pressure 124/78, and oximetry is in the mid 90s. LUNGS: Remarkable for coarse equal breath sounds. HEART: Regular rhythm. ABDOMEN: Soft. EXTREMITIES: Without asymmetry. LABORATORY DATA: White count 16.6, hemoglobin 12.7, and platelets 215,000. Sodium 137, potassium 5.8, chloride 102, bicarb 11, BUN 20, and creatinine 1.84. Apparently his creatinine baseline on the 3rd was 0.83. Chest x-ray shows an infiltrate in the right upper lung field and left midlung. IMPRESSION: Bacterial pneumonia with respiratory failure on top of his chronic obstructive pulmonary disease. This is not a COVID process. PLAN: He should be treated for nosocomial pathogens. It would not be unreasonable to consult Infectious Disease. His heart rate needs to be controlled if it becomes elevated again. Increase nebulizer treatments. We will follow. Critical care time 30 min. Job ID: [id number] MTDD
[2020-09-09] MEDS: Meropenem 2 GM, Admixture Fee 1 EACH in Sodium Chloride 0.9% 100 ML IVPB SCH (17:50)
[2020-09-09] MEDS: Albuterol 200 PUFF (6.7GM INHALER) INH SCH ×2 (19:54→22:45)
[2020-09-09] MEDS: Atorvastatin Calcium 40 MG TAB PO SCH (21:12)
[2020-09-09] MEDS ORDERED: Albumin 5% 0 ML ONE (23:57)
[2020-09-10] MEDS: Meropenem 2 GM, Admixture Fee 1 EACH in Sodium Chloride 0.9% 100 ML IVPB SCH ×3 (00:12→17:35)
[2020-09-10] MEDS: Insulin Regular 300 UNITS/3 ML VIAL SC PRN ×5 (00:18→20:38)
[2020-09-10] MEDS: Lorazepam 2 MG/ML VIAL SLOW IVP PRN (00:23)
[2020-09-10] MEDS: Albuterol 200 PUFF (6.7GM INHALER) INH SCH ×2 (01:58→07:26)
[2020-09-10] MEDS: fentaNYL Citrate/PF 2,000 MCG in Sodium Chloride 0.9% 60 ML IV SCH (03:34)
[2020-09-10] MEDS: Propofol 1,000 MG/100 ML VIAL IV PRN ×6 (04:15→21:34)
[2020-09-10] MEDS ORDERED: Norepinephrine 8 MG/0.9% NS 8 MG in Premix Bag 1 BAG IVPB PRN (05:07)
[2020-09-10 05:13] LABS: ALT (SGPT) 64 U/L (8-55); AST (SGOT) 44 U/L (5-34); Albumin 2.7 g/dL (3.4-4.8); Alkaline Phosphatase 79 U/L (40-110); Anion Gap 26 mmol/L (10-20); BUN (Urea Nitrogen) 41 mg/dL (8.4-25.7); Bilirubin, Total 0.4 mg/dL (0.2-1.2); Calc. Creatinine Clearance 0 mL/min (70-130); Calcium 7.8 mg/dL (7.8-10.44); Carbon Dioxide 14 mmol/L (23-31); Chloride 103 mmol/L (98-107); Globulin 3.4 g/dL (2.4-3.5); Glucose 431 mg/dL (83-110); Potassium 4.4 mmol/L (3.5-5.1); Protein, Total 6.1 g/dL (5.8-8.1); Sodium 139 mmol/L (136-145)
[2020-09-10] MEDS: methylPREDNISolone Sod Succ 40 MG VIAL IVP SCH ×3 (05:15→18:13)
[2020-09-10 05:22] LABS: Band 11 % (5-11); Hemoglobin 11.8 g/dL (14.0-18.0); Hypochromia SLIGHT = 6-15 cells (100X) (0-5/hpf); Lymphocytes 4 % (21-51); MDiff Complete? YES; Mean Corpuscular HGB CONC 30.5 g/dL (32.0-36.0); Mean Corpuscular Hemoglobin 28.7 pg (27.0-31.0); Mean Corpuscular Volume 94.3 fL (78.0-98.0); Mean Platelet Volume 9.6 fL (7.4-10.4); Metamyelocyte 1 % (0-0); Monocytes 7 % (0-10); Neutrophil 75 % (42-75); Platelet Count 234 thou/uL (130-400); Platelet Morphology Comment Appears Adequate; RBC Distribution Width 13.9 % (11.5-14.5); Reactive Lymphocytes 2 % (0-10); White Blood Cell (WBC) Count 20.6 thou/uL (4.8-10.8)
[2020-09-10] MEDS: Diltiazem HCl SR 90 mg Capsule PO SCH ×2 (07:52→20:41)
[2020-09-10] MEDS: Carvedilol 25 MG TAB PO SCH ×2 (07:52→17:35)
[2020-09-10] MEDS: Apixaban 5 MG TAB PO SCH ×2 (07:52→20:41)
[2020-09-10] MEDS: Tamsulosin HCl 0.4 MG CAP PO SCH (07:52)
--- NOTE | 2020-09-10 08:13 | PRG ---
DATE OF SERVICE: 09/10/2020 SUBJECTIVE: Pete Hogan remains hemodynamically stable. OBJECTIVE: VITAL SIGNS: Heart rate is 106, blood pressure 92/71, respiratory rate is 18. LUNGS: Remarkable for coarse equal breath sounds. HEART: Regular rhythm. ABDOMEN: Soft. EXTREMITIES: Without change. LABORATORY DATA: White count 20, hemoglobin 11, platelets 234. Sodium 139, potassium 4.4, chloride 103, bicarb 14, BUN 41, creatinine 1.96. AST is 44, ALT 64. There is no chest x-ray from this morning. IMPRESSION: 1. Chronic obstructive pulmonary disease exacerbation with respiratory failure. 2. Right upper lobe atelectasis, most likely secondary to mucus plug. We will check a chest x-ray tomorrow. Start nebulized treatments. Consider bronchoscopy if this is persistent. 3. History of COVID-19, not a clinical issue at this point in time. 4. History of sleep apnea and obesity. 5. History of cardiomyopathy. 6. History of atrial fibrillation. 7. Diabetes. 8. Hypertension. PLAN: Continue supportive care. He is not weanable at this point in time. Critical care time 30 min. Job ID: [id number] MTDD
[2020-09-10] MEDS ORDERED: FLU VACC QS2020-21(65YR UP)/PF 240 MCG/0.7 ML SYRINGE IM ONE (09:00)
[2020-09-10] MEDS: Famotidine/PF 20 mg/2ml Vial SLOW IVP SCH (12:31)
--- NOTE | 2020-09-10 19:46 | PDOC.HOSPP ---
- Subjective Encounter Date: 09/10/20 Encounter Time: 17:10 Subjective: f/u for resp failure/COVID PNA/A-fib RVR on current mech ventilation. Receiving Levaquin/Meropenem/Vancomycin. - Objective Vital Signs & Weight: Vital Signs (12 hours) Temp Pulse Resp BP Pulse Ox 09/10/20 18:47 77 18 98 09/10/20 18:45 77 09/10/20 16:00 97.4 F L 09/10/20 15:19 86 100/69 09/10/20 15:18 78 18 99 09/10/20 12:00 97.3 F L 09/10/20 11:04 92 96/62 09/10/20 10:58 87 18 96 09/10/20 08:00 97.6 F 96 Weight Admit Weight 321 lb 3.416 oz Weight 326 lb 8.073 oz Most Recent Monitor Data Heart Rate from ECG 79 NIBP 90/61 NIBP BP-Mean 70 Respiration from ECG 20 SpO2 98 I&O: 09/09/20 09/10/20 09/11/20 06:59 06:59 06:59 Intake Total 1342.6 120 Output Total 1095 405 Balance 247.6 -285 Result Diagrams: 09/10/20 04:15 09/10/20 04:15 Additional Labs: Accuchecks 09/10/20 09/10/20 09/10/20 18:07 13:17 00:15 POC Glucose 374 H 313 H 398 H Microbiology 09/08/20 13:55 Venous blood - Right Arm Blood Culture - Preliminary Specimen has been received and culture in progress. No Growth to date. 09/08/20 13:55 Venous blood - Right Arm Blood Culture - Preliminary NO GROWTH AT 48 HOURS 09/08/20 13:45 Venous blood - Right Arm Blood Culture - Preliminary Specimen has been received and culture in progress. No Growth to date. 09/08/20 13:45 Venous blood - Right Arm Blood Culture - Preliminary NO GROWTH AT 48 HOURS Laboratory Tests 09/08/20 09/08/20 09/08/20 13:45 18:43 20:13 WBC Neutrophils % (Manual) Potassium Carbon Dioxide 20 L BUN Creatinine 1.09 Lactic Acid 3.1 H Vancomycin Trough Influenza A RNA INAAT Not Detected Influenza B RNA INAAT Not Detected SARS-CoV-2 Rap RNA(RT-PCR) DETECTED A* 09/08/20 09/08/20 09/09/20 21:27 22:52 06:47 WBC Neutrophils % (Manual) Potassium 5.8 H Carbon Dioxide BUN 28 H Creatinine 1.84 H Lactic Acid 2.0 2.9 H Vancomycin Trough Influenza A RNA INAAT Influenza B RNA INAAT SARS-CoV-2 Rap RNA(RT-PCR) 09/09/20 09/10/20 06:47 09:16 WBC 16.6 H Neutrophils % (Manual) 93 H Potassium Carbon Dioxide BUN Creatinine Lactic Acid Vancomycin Trough 35.0 H* Influenza A RNA INAAT Influenza B RNA INAAT SARS-CoV-2 Rap RNA(RT-PCR) EKG Reviewed by me: Yes (Tele - A-fib in 's) Hospitalist ROS - Medication Medications: Active Medications Generic Name Dose Route Start Last Admin Trade Name Freq PRN Reason Stop Dose Admin Albuterol/Ipratropium 3 ml 09/10/20 10:30 09/10/20 18:47 Ipratropium/Albuterol Sulfate 3 Ml Neb NEB 3 ml [id number] ALIYAH Administration Apixaban 5 mg 09/08/20 21:00 09/10/20 07:52 Apixaban 5 Mg Tab PO 5 mg BID ALIYAH Administration Atorvastatin Calcium 40 mg 09/08/20 21:00 09/09/20 21:12 Atorvastatin Calcium 40 Mg Tab PO 40 mg HS ALIYAH Administration Carvedilol 25 mg 09/08/20 08:00 09/10/20 17:35 Carvedilol 25 Mg Tab PO 25 mg BID-WM ALIYAH Administration Diltiazem HCl 90 mg 09/08/20 21:00 09/10/20 07:52 Diltiazem Hcl Sr 90 Mg Capsule PO 90 mg BID ALIYAH Administration Fentanyl Citrate 2,000 mcg/ 100 mls @ 0 mls/hr 09/09/20 05:15 09/10/20 03:34 Sodium Chloride IV 10/09/20 05:15 100 mls INF ALIYAH Administration Protocol Per Protocol Meropenem 2 gm/ Miscellaneous 100 mls @ 200 mls/hr 09/09/20 17:00 09/10/20 1 7:35 Medication 1 each/ Sodium IVPB 100 mls Chloride 0100,0900,1700 ALIYAH Administration Norepinephrine Bitartrate 8 mg 250 mls @ 0 mls/hr 09/10/20 05:07 09/10/20 07:50 / Device IVPB 250 mls INF PRN Administration TO MAINTAIN MAP > 65 Protocol As Directed Insulin Human Regular 0 units 09/08/20 20:03 09/10/20 18:13 Insulin Regular 300 Units/3 Ml Vial SC 13 units .AGGRESSIVE SLIDING PRN Administration Aggressive Correctional Scale Lorazepam 2 mg 09/09/20 07:30 09/10/20 00:23 Lorazepam 2 Mg/Ml Vial SLOW IVP 10/09/20 07:30 2 mg Q1H PRN Administration Breakthrough agitation Methylprednisolone Sodium Succinate 40 mg 09/08/20 23:59 09/10/20 18:13 Methylprednisolone Sod Succ 40 Mg Vial IVP 40 mg Q6HR ALIYAH Administration Propofol 1,000 mg 09/09/20 07:30 09/10/20 18:40 Propofol 1,000 Mg/100 Ml Vial IV 10/09/20 07:30 1,000 mg INF PRN Administration TO ACHIEVE GOAL RASS Protocol Sodium Chloride 10 ml 09/09/20 09:00 09/10/20 08:38 Flush - Normal Saline 10 Ml Syringe IVF 10 ml Q12HR ALIYAH Administration Tamsulosin HCl 0.4 mg 09/09/20 09:00 09/10/20 07:52 Tamsulosin Hcl 0.4 Mg Cap PO 0.4 mg DAILY ALIYAH Administration - Exam General Appearance: ill appearing General - other findings: sedate on mech vent Eye: anicteric sclera ENT: normocephalic atraumatic, no oropharyngeal lesions Neck: supple, symmetric, no JVD, no thyromegaly, no lymphadenopathy Heart: no gallops, no rubs, normal peripheral pulses, irregular Heart - other findings: S1, S2 Respiratory - other findings: diminished in bases, scattered rhonchi Gastrointestinal: soft, non-tender, non-distended, normal bowel sounds, no palpable masses Gastrointestinal - other findings: obese Extremities: no cyanosis, 1+ LE edema Skin: normal turgor Neurological - other findings: sedate on mech vent Psychiatric: somnolent, lethargic Hosp A/P (1) Pneumonia due to 2019-nCoV Code(s): U07.1 - COVID-19; J12.89 - OTHER VIRAL PNEUMONIA Status: Acute Plan: Suspected, continue Levaquin/Meropenem/Vancomycin/Solumedrol/Albuterol (2) Acute respiratory failure with hypoxia Code(s): J96.01 - ACUTE RESPIRATORY FAILURE WITH HYPOXIA Status: Acute Plan: Multifactorial, see #1 above (3) Sepsis Code(s): A41.9 - SEPSIS, UNSPECIFIED ORGANISM Status: Acute Qualifiers: Severe sepsis shock status: with septic shock (4) Atrial fibrillation with rapid ventricular response Code(s): I48.91 - UNSPECIFIED ATRIAL FIBRILLATION Status: Acute Plan: Rate-controlled currently, continue Carvedilol/Diltiazem/Eliquis (5) Acute renal failure Status: Acute Plan: Avoid nephrotoxic meds and limit contrast exposure (6) Morbid obesity Code(s): E66.01 - MORBID (SEVERE) OBESITY DUE TO EXCESS CALORIES Status: Chronic - Plan continue antibiotics, renal social worker, respiratory therapy, DVT proph w/SCDs Continue critical support Mech ventilation with SIMV Rate-control measures for A-fib Continue IV Levaquin/Meropenem/Vancomycin Ventilator sedation protocol Continue Solumedrol Continue Eliquis AM lab: BMP, CBC, Vanc trough PCXR in am
[2020-09-10] MEDS ORDERED: Fentanyl CADD 0 ML ONE (19:52)
[2020-09-10] MEDS ORDERED: Fentanyl CADD 100 ML ONE (19:53)
[2020-09-10] MEDS: Atorvastatin Calcium 40 MG TAB PO SCH (20:41)
[2020-09-11] MEDS: methylPREDNISolone Sod Succ 40 MG VIAL IVP SCH ×4 (00:17→17:41)
[2020-09-11] MEDS: Meropenem 2 GM, Admixture Fee 1 EACH in Sodium Chloride 0.9% 100 ML IVPB SCH ×3 (01:52→17:48)
[2020-09-11] MEDS: Insulin Regular 300 UNITS/3 ML VIAL SC PRN ×5 (01:52→20:29)
[2020-09-11 04:33] LABS: Band 6 % (5-11); Hemoglobin 11.4 g/dL (14.0-18.0); Hypochromia SLIGHT = 6-15 cells (100X) (0-5/hpf); Lymphocytes 11 % (21-51); MDiff Complete? YES; Mean Corpuscular HGB CONC 31.3 g/dL (32.0-36.0); Mean Corpuscular Hemoglobin 28.6 pg (27.0-31.0); Mean Corpuscular Volume 91.3 fL (78.0-98.0); Mean Platelet Volume 9.2 fL (7.4-10.4); Metamyelocyte 1 % (0-0); Monocytes 6 % (0-10); Neutrophil 76 % (42-75); Platelet Count 188 thou/uL (130-400); Platelet Morphology Comment Appears Adequate; RBC Distribution Width 13.9 % (11.5-14.5); Red Blood Cell (RBC) Count 3.99 mill/uL (4.70-6.10); White Blood Cell (WBC) Count 11.2 thou/uL (4.8-10.8)
[2020-09-11 04:46] LABS: ALT (SGPT) 51 U/L (8-55); AST (SGOT) 24 U/L (5-34); Albumin 2.6 g/dL (3.4-4.8); Alkaline Phosphatase 81 U/L (40-110); Anion Gap 17 mmol/L (10-20); BUN (Urea Nitrogen) 44 mg/dL (8.4-25.7); Bilirubin, Total 0.4 mg/dL (0.2-1.2); Calc. Creatinine Clearance 76 mL/min (70-130); Carbon Dioxide 22 mmol/L (23-31); Chloride 105 mmol/L (98-107); Globulin 3.1 g/dL (2.4-3.5); Glucose 485 mg/dL (83-110); Potassium 3.9 mmol/L (3.5-5.1); Protein, Total 5.7 g/dL (5.8-8.1); Sodium 140 mmol/L (136-145)
[2020-09-11] MEDS: Tamsulosin HCl 0.4 MG CAP PO SCH (07:59)
--- NOTE | 2020-09-11 07:59 | RAD ---
EXAM: Single view of the chest HISTORY: Ventilated patient with respiratory failure COMPARISON: 09/09/2020 FINDINGS: Single view of the chest shows an enlarged but stable cardiomediastinal silhouette. The li christy and tubes are unchanged in position. There are stable multifocal infiltrates in the lungs. There may be small bilateral pleural effusions. Degenerative changes are seen in the spine. IMPRESSION: Multifocal infiltrates and bilateral pleural effusions
[2020-09-11] MEDS: Famotidine 20 MG TAB PO SCH (08:00)
[2020-09-11] MEDS: Diltiazem HCl SR 90 mg Capsule PO SCH ×2 (08:00→20:31)
[2020-09-11] MEDS: Apixaban 5 MG TAB PO SCH ×2 (08:00→20:30)
[2020-09-11] MEDS: Carvedilol 25 MG TAB PO SCH ×2 (10:07→16:31)
[2020-09-11] MEDS: Propofol 1,000 MG/100 ML VIAL IV PRN (10:08)
[2020-09-11 10:57] LABS: Vancomycin, Random 22.3 ug/mL (See Comment)
[2020-09-11] MEDS ORDERED: Insulin Glargine 10 UNITS in Pre-Filled Syringe 1 EACH SC SCH ×2 (12:30→21:00)
--- NOTE | 2020-09-11 16:32 | PRG ---
DATE OF SERVICE: 09/11/2020 SUBJECTIVE: Mr. Hogan remains mechanically ventilated. OBJECTIVE: VITAL SIGNS: Heart rates in 80s, blood pressure is 148/77, respiratory rate 21, oximetry 98%. LUNGS: Remarkable for distant breath sounds. HEART: Regular rhythm. ABDOMEN: Soft. DIAGNOSTIC STUDIES: Chest radiograph shows better aeration of the right upper lobe. Bilateral infiltrates and effusions are noted. IMPRESSION: 1. Respiratory failure. 2. Right upper lobe atelectasis, improved. 3. History of cardiomyopathy, in atrial fibrillation. 4. History of chronic obstructive pulmonary disease with exacerbation this admission. 5. Diabetes. 6. Hypertension. PLAN: Continue support, is currently not weanable. Critical care time 30 min. Job ID: [id number] MTDD
--- NOTE | 2020-09-11 18:24 | PDOC.HOSPP ---
- Subjective Encounter Date: 09/11/20 Encounter Time: 18:25 Subjective: f/u for COVID PNA/resp failure/A-fib RVR remaining on mech ventilation. Receiving Levaquin/Meropenem/Vancomycin. Nursing reports glucose elevated on current Glucerna 1.5 and receiving Solumedrol. - Objective Vital Signs & Weight: Vital Signs (12 hours) Pulse Resp BP Pulse Ox 09/11/20 18:00 21 H 09/11/20 16:00 20 09/11/20 15:14 78 147/102 H 09/11/20 15:13 84 21 H 98 09/11/20 14:00 26 H 09/11/20 12:00 26 H 09/11/20 11:31 91 119/84 09/11/20 11:30 86 23 H 99 09/11/20 10:00 24 H 09/11/20 08:00 28 H 09/11/20 07:29 86 109/63 09/11/20 07:27 89 19 98 Weight Admit Weight 321 lb 3.416 oz Weight 328 lb 4.293 oz Most Recent Monitor Data Heart Rate from ECG 78 NIBP 128/90 NIBP BP-Mean 102 Respiration from ECG 22 SpO2 97 I&O: 09/10/20 09/11/20 09/12/20 06:59 06:59 06:59 Intake Total 1342.6 607 772.2 Output Total 1095 760 420 Balance 247.6 -153 352.2 Result Diagrams: 09/11/20 03:45 09/11/20 03:45 Additional Labs: Accuchecks 09/11/20 09/11/20 09/10/20 12:10 01:49 20:37 POC Glucose 367 H 367 H 363 H Microbiology 09/08/20 13:55 Venous blood - Right Arm Blood Culture - Preliminary Specimen has been received and culture in progress. No Growth to date. 09/08/20 13:55 Venous blood - Right Arm Blood Culture - Preliminary NO GROWTH AT 48 HOURS 09/08/20 13:45 Venous blood - Right Arm Blood Culture - Preliminary Specimen has been received and culture in progress. No Growth to date. 09/08/20 13:45 Venous blood - Right Arm Blood Culture - Preliminary NO GROWTH AT 48 HOURS Laboratory Tests 09/08/20 09/08/20 09/08/20 13:45 18:43 20:13 WBC Neutrophils % (Manual) Potassium Carbon Dioxide 20 L BUN Creatinine 1.09 Lactic Acid 3.1 H Vancomycin Trough Influenza A RNA INAAT Not Detected Influenza B RNA INAAT Not Detected SARS-CoV-2 Rap RNA(RT-PCR) DETECTED A* 09/08/20 09/08/20 09/09/20 21:27 22:52 06:47 WBC Neutrophils % (Manual) Potassium 5.8 H Carbon Dioxide BUN 28 H Creatinine 1.84 H Lactic Acid 2.0 2.9 H Vancomycin Trough Influenza A RNA INAAT Influenza B RNA INAAT SARS-CoV-2 Rap RNA(RT-PCR) 09/09/20 09/10/20 06:47 09:16 WBC 16.6 H Neutrophils % (Manual) 93 H Potassium Carbon Dioxide BUN Creatinine Lactic Acid Vancomycin Trough 35.0 H* Influenza A RNA INAAT Influenza B RNA INAAT SARS-CoV-2 Rap RNA(RT-PCR) Laboratory Tests 09/10/20 09/11/20 04:15 10:14 Creatinine 1.96 H Random Vancomycin 22.3 Radiology Reviewed by me: Yes (PCXR - bilat infiltrates, bilat pleural effusio ns) EKG Reviewed by me: Yes (Tele - A-fib) Hospitalist ROS - Medication Medications: Active Medications Generic Name Dose Route Start Last Admin Trade Name Freq PRN Reason Stop Dose Admin Albuterol/Ipratropium 3 ml 09/10/20 10:30 09/11/20 15:13 Ipratropium/Albuterol Sulfate 3 Ml Neb NEB 3 ml [id number] ALIYAH Administration Apixaban 5 mg 09/08/20 21:00 09/11/20 08:00 Apixaban 5 Mg Tab PO 5 mg BID ALIYAH Administration Atorvastatin Calcium 40 mg 09/08/20 21:00 09/10/20 20:41 Atorvastatin Calcium 40 Mg Tab PO 40 mg HS ALIYAH Administration Carvedilol 25 mg 09/08/20 08:00 09/11/20 16:31 Carvedilol 25 Mg Tab PO 25 mg BID-WM ALIYAH Administration Diltiazem HCl 90 mg 09/08/20 21:00 09/11/20 08:00 Diltiazem Hcl Sr 90 Mg Capsule PO 90 mg BID ALIYAH Administration Famotidine 20 mg 09/11/20 09:00 09/11/20 08:00 Famotidine 20 Mg Tab PO 20 mg 0900 ALIYAH Administration Fentanyl Citrate 2,000 mcg/ 100 mls @ 0 mls/hr 09/09/20 05:15 09/10/20 03:34 Sodium Chloride IV 10/09/20 05:15 100 mls INF ALIYAH Administration Protocol Per Protocol Meropenem 2 gm/ Miscellaneous 100 mls @ 200 mls/hr 09/09/20 17:00 09/11/20 17:48 Medication 1 each/ Sodium IVPB 100 mls Chloride 0100,0900,1700 ALIYAH Administration Norepinephrine Bitartrate 8 mg 250 mls @ 0 mls/hr 09/10/20 05:07 09/10/20 07:50 / Device IVPB 250 mls INF PRN Administration TO MAINTAIN MAP > 65 Protocol As Directed Insulin Human Regular 0 units 09/08/20 20:03 09/11/20 16:26 Insulin Regular 300 Units/3 Ml Vial SC 13 units .AGGRESSIVE SLIDING PRN Administration Aggressive Correctional Scale Lorazepam 2 mg 09/09/20 07:30 09/10/20 00:23 Lorazepam 2 Mg/Ml Vial SLOW IVP 10/09/20 07:30 2 mg Q1H PRN Administration Breakthrough agitation Methylprednisolone Sodium Succinate 40 mg 09/08/20 23:59 09/11/20 17:41 Methylprednisolone Sod Succ 40 Mg Vial IVP 40 mg Q6HR ALIYAH Administration Propofol 1,000 mg 09/09/20 07:30 09/11/20 10:08 Propofol 1,000 Mg/100 Ml Vial IV 10/09/20 07:30 1,000 mg INF PRN Administration TO ACHIEVE GOAL RASS Protocol Sodium Chloride 10 ml 09/09/20 09:00 09/11/20 08:02 Flush - Normal Saline 10 Ml Syringe IVF 10 ml Q12HR ALIYAH Administration Tamsulosin HCl 0.4 mg 09/09/20 09:00 09/11/20 07:59 Tamsulosin Hcl 0.4 Mg Cap PO 0.4 mg DAILY ALIYAH Administration - Exam General - other findings: sedate on mech vent Eye: anicteric sclera ENT: normocephalic atraumatic, no oropharyngeal lesions ENT - other findings: ETT in place Neck: supple, symmetric, no JVD, no thyromegaly, no lymphadenopathy Heart: no gallops, no rubs, normal peripheral pulses, irregular Heart - other findings: S1, S2 Respiratory: tachypneic Respiratory - other findings: diminished bilat, coarse Gastrointestinal: soft, non-tender, non-distended, normal bowel sounds, no palpable masses Gastrointestinal - other findings: obese Extremities: no cyanosis, 1+ LE edema Skin: normal turgor Musculoskeletal: generalized weakness Psychiatric: somnolent, lethargic Hosp A/P (1) Pneumonia due to 2019-nCoV Code(s): U07.1 - COVID-19; J12.89 - OTHER VIRAL PNEUMONIA Status: Acute Plan: Continue Solumedrol/Levaquin/Meropenem/Vancomycin/Vit C/Zinc/Eliquis (2) Acute respiratory failure with hypoxia Code(s): J96.01 - ACUTE RESPIRATORY FAILURE WITH HYPOXIA Status: Acute Plan: Continue mech ventilation (3) Sepsis Code(s): A41.9 - SEPSIS, UNSPECIFIED ORGANISM Status: Acute Qualifiers: Severe sepsis shock status: with septic shock (4) Atrial fibrillation with rapid ventricular response Code(s): I48.91 - UNSPECIFIED ATRIAL FIBRILLATION Status: Acute Plan: Rate improved, continue Coreg/Diltiazem/Eliquis (5) Acute renal failure Status: Acute Plan: Improving, avoid nephrotoxic meds and limit contrast (6) Morbid obesity Code(s): E66.01 - MORBID (SEVERE) OBESITY DUE TO EXCESS CALORIES Status: Chronic - Plan continue antibiotics, certified social workers in health care, respiratory therapy, DVT proph w/SCDs Consults: Palliative Care Continue critical support Mech ventilation with SIMV Rate-control measures for A-fib Continue IV Levaquin/Meropenem/Vancomycin Ventilator sedation protocol Continue Solumedrol Continue Eliquis Palliative care consult AM lab: BMP, CBC, Vanc trough PCXR in am
[2020-09-11] MEDS: Insulin Glargine 15 UNITS in Pre-Filled Syringe 1 EACH SC SCH (20:28)
[2020-09-11] MEDS: Atorvastatin Calcium 40 MG TAB PO SCH (20:30)
[2020-09-11 21:16] LABS: Vancomycin, Random 17.2 ug/mL (See Comment)
[2020-09-11] MEDS: Lorazepam 2 MG/ML VIAL SLOW IVP PRN (21:22)
[2020-09-11] MEDS: Vancomycin 1.5 GRAM/300 ML BAG 1.5 GM in Premix Bag 1 BAG IVPB SCH (22:17)
[2020-09-12] MEDS: methylPREDNISolone Sod Succ 40 MG VIAL IVP SCH ×5 (00:17→23:24)
[2020-09-12] MEDS: Insulin Regular 300 UNITS/3 ML VIAL SC PRN ×5 (00:18→21:39)
[2020-09-12] MEDS: Meropenem 2 GM, Admixture Fee 1 EACH in Sodium Chloride 0.9% 100 ML IVPB SCH ×3 (00:34→17:52)
[2020-09-12 05:49] LABS: ALT (SGPT) 43 U/L (8-55); AST (SGOT) 17 U/L (5-34); Albumin 2.7 g/dL (3.4-4.8); Alkaline Phosphatase 85 U/L (40-110); Anion Gap 15 mmol/L (10-20); BUN (Urea Nitrogen) 43 mg/dL (8.4-25.7); Bilirubin, Total 0.4 mg/dL (0.2-1.2); Calc. Creatinine Clearance 103 mL/min (70-130); Carbon Dioxide 24 mmol/L (23-31); Chloride 105 mmol/L (98-107); Globulin 3.1 g/dL (2.4-3.5); Glucose 376 mg/dL (83-110); Potassium 4.2 mmol/L (3.5-5.1); Protein, Total 5.8 g/dL (5.8-8.1); Sodium 140 mmol/L (136-145)
[2020-09-12 05:57] LABS: Band 2 % (5-11); Hemoglobin 11.2 g/dL (14.0-18.0); Hypochromia SLIGHT = 6-15 cells (100X) (0-5/hpf); Lymphocytes 1 % (21-51); MDiff Complete? YES; Mean Corpuscular HGB CONC 31.8 g/dL (32.0-36.0); Mean Corpuscular Hemoglobin 28.8 pg (27.0-31.0); Mean Corpuscular Volume 90.6 fL (78.0-98.0); Mean Platelet Volume 9.7 fL (7.4-10.4); Monocytes 16 % (0-10); Neutrophil 81 % (42-75); Nucleated RBC 1 % (0); Platelet Count 175 thou/uL (130-400); Platelet Morphology Comment Appears Adequate; RBC Distribution Width 13.8 % (11.5-14.5); Red Blood Cell (RBC) Count 3.88 mill/uL (4.70-6.10); White Blood Cell (WBC) Count 10.9 thou/uL (4.8-10.8)
[2020-09-12] MEDS: Diltiazem HCl SR 90 mg Capsule PO SCH ×2 (07:11→19:33)
[2020-09-12] MEDS: Tamsulosin HCl 0.4 MG CAP PO SCH (07:11)
[2020-09-12] MEDS: Apixaban 5 MG TAB PO SCH ×2 (07:11→19:33)
[2020-09-12] MEDS: Carvedilol 25 MG TAB PO SCH ×2 (07:11→16:39)
[2020-09-12] MEDS: Famotidine 20 MG TAB PO SCH ×2 (07:11→19:32)
--- NOTE | 2020-09-12 07:59 | RAD ---
EXAM: CHEST ONE VIEW HISTORY: On ventilator. COMPARISON: 09/11/2020 FINDINGS: Endotracheal tube and nasogastric tubes are in place. Patient is rotated to the right. There are incr eased interstitial patchy and parenchymal opacities in the right mid and upper lung zone as well as in the left mid and lower lung zones. Findings are overall stable to mildly increased at the left matthew g base. No other interval change. IMPRESSION: Multifocal interstitial and patchy parenchymal airspace opacities likely related to Covid pneumonia.
[2020-09-12] MEDS: Insulin Glargine 15 UNITS in Pre-Filled Syringe 1 EACH SC SCH (08:33)
[2020-09-12] MEDS: Morphine 2 MG/ML VIAL SLOW IVP PRN (14:23)
[2020-09-12] MEDS: Propofol 1,000 MG/100 ML VIAL IV PRN ×2 (16:39→21:37)
[2020-09-12] MEDS ORDERED: Fentanyl CADD 100 ML ONE (18:10)
[2020-09-12] MEDS: fentaNYL Citrate/PF 2,000 MCG in Sodium Chloride 0.9% 60 ML IV SCH (18:13)
--- NOTE | 2020-09-12 19:06 | PDOC.HOSPP ---
- Subjective Encounter Date: 09/12/20 Encounter Time: 18:30 Subjective: f/u for COVID PNA[facility] - Objective Vital Signs & Weight: Vital Signs (12 hours) Pulse Resp Pulse Ox 09/12/20 18:37 81 14 95 09/12/20 18:34 88 09/12/20 18:00 26 H 09/12/20 16:00 34 H 09/12/20 15:59 84 09/12/20 14:00 32 H 09/12/20 12:00 39 H 09/12/20 10:33 85 09/12/20 10:00 28 H 09/12/20 08:00 24 H 09/12/20 07:30 81 Weight Admit Weight 321 lb 3.416 oz Weight 329 lb 12.984 oz Most Recent Monitor Data Heart Rate from ECG 79 NIBP 132/79 NIBP BP-Mean 96 Respiration from ECG 25 SpO2 91 I&O: 09/11/20 09/12/20 09/13/20 06:59 06:59 06:59 Intake Total 607 1618.2 747.1 Output Total 760 1183 685 Balance -153 435.2 62.1 Result Diagrams: 09/12/20 04:25 09/12/20 03:30 Additional Labs: Accuchecks 09/12/20 09/12/20 09/11/20 16:31 11:20 19:56 POC Glucose 326 H 338 H 354 H Microbiology 09/08/20 13:55 Venous blood - Right Arm Blood Culture - Preliminary Specimen has been received and culture in progress. No Growth to date. 09/08/20 13:55 Venous blood - Right Arm Blood Culture - Preliminary NO GROWTH AT 48 HOURS 09/08/20 13:45 Venous blood - Right Arm Blood Culture - Preliminary Specimen has been received and culture in progress. No Growth to date. 09/08/20 13:45 Venous blood - Right Arm Blood Culture - Preliminary NO GROWTH AT 48 HOURS Laboratory Tests 09/08/20 09/08/20 09/08/20 13:45 18:43 20:13 WBC Neutrophils % (Manual) Potassium Carbon Dioxide 20 L BUN Creatinine 1.09 Lactic Acid 3.1 H Vancomycin Trough Random Vancomycin Influenza A RNA INAAT Not Detected Influenza B RNA INAAT Not Detected SARS-CoV-2 Rap RNA(RT-PCR) DETECTED A* 09/08/20 09/08/20 09/09/20 21:27 22:52 06:47 WBC Neutrophils % (Manual) Potassium 5.8 H Carbon Dioxide BUN 28 H Creatinine 1.84 H Lactic Acid 2.0 2.9 H Vancomycin Trough Random Vancomycin Influenza A RNA INAAT Influenza B RNA INAAT SARS-CoV-2 Rap RNA(RT-PCR) 09/09/20 09/10/20 09/10/20 06:47 04:15 09:16 WBC 16.6 H Neutrophils % (Manual) 93 H Potassium Carbon Dioxide BUN Creatinine 1.96 H Lactic Acid Vancomycin Trough 35.0 H* Random Vancomycin Influenza A RNA INAAT Influenza B RNA INAAT SARS-CoV-2 Rap RNA(RT-PCR) 09/11/20 10:14 WBC Neutrophils % (Manual) Potassium Carbon Dioxide BUN Creatinine Lactic Acid Vancomycin Trough Random Vancomycin 22.3 Influenza A RNA INAAT Influenza B RNA INAAT SARS-CoV-2 Rap RNA(RT-PCR) Radiology Reviewed by me: Yes (PCXR - multifocal infiltrates bilat, lines/tubes in place) EKG Reviewed by me: Yes (Tele - A-fib) Hospitalist ROS - Medication Medications: Active Medications Generic Name Dose Route Start Last Admin Trade Name Freq PRN Reason Stop Dose Admin Albuterol/Ipratropium 3 ml 09/10/20 10:30 09/12/20 18:37 Ipratropium/Albuterol Sulfate 3 Ml Neb NEB 3 ml [id number] ALIYAH Administration Apixaban 5 mg 09/08/20 21:00 09/12/20 07:11 Apixaban 5 Mg Tab PO 5 mg BID ALIYAH Administration Atorvastatin Calcium 40 mg 09/08/20 21:00 09/11/20 20:30 Atorvastatin Calcium 40 Mg Tab PO 40 mg HS ALIYAH Administration Carvedilol 25 mg 09/08/20 08:00 09/12/20 16:39 Carvedilol 25 Mg Tab PO 25 mg BID-WM ALIYAH Administration Diltiazem HCl 90 mg 09/08/20 21:00 09/12/20 07:11 Diltiazem Hcl Sr 90 Mg Capsule PO 90 mg BID ALIYAH Administration Fentanyl Citrate 2,000 mcg/ 100 mls @ 0 mls/hr 09/09/20 05:15 09/12/20 18:13 Sodium Chloride IV 10/09/20 05:15 100 mls INF ALIYAH Administration Protocol Per Protocol Meropenem 2 gm/ Miscellaneous 100 mls @ 200 mls/hr 09/09/20 17:00 09/12/20 17:52 Medication 1 each/ Sodium IVPB 100 mls Chloride 0100,0900,1700 ALIYAH Administration Norepinephrine Bitartrate 8 mg 250 mls @ 0 mls/hr 09/10/20 05:07 09/10/20 07:50 / Device IVPB 250 mls INF PRN Administration TO MAINTAIN MAP > 65 Protocol As Directed Vancomycin HCl 1.5 gm/ Device 300 mls @ 200 mls/hr 09/11/20 22:00 09/11/20 22:17 IVPB 300 mls 2200 ALIYAH Administration Levofloxacin 750 mg/ Device 150 mls @ 100 mls/hr 09/11/20 21:00 09/11/20 20:30 IVPB 150 mls Q2D@2100 ALIYAH Administration Insulin Human Regular 0 units 09/08/20 20:03 09/12/20 16:41 Insulin Regular 300 Units/3 Ml Vial SC 11 units .AGGRESSIVE SLIDING PRN Administration Aggressive Correctional Scale Lorazepam 2 mg 09/09/20 07:30 09/11/20 21:22 Lorazepam 2 Mg/Ml Vial SLOW IVP 10/09/20 07:30 2 mg Q1H PRN Administration Breakthrough agitation Methylprednisolone Sodium Succinate 40 mg 09/08/20 23:59 09/12/20 17:52 Methylprednisolone Sod Succ 40 Mg Vial IVP 40 mg Q6HR ALIYAH Administration Morphine Sulfate 2 mg 09/09/20 07:30 09/12/20 14:23 Morphine 2 Mg/Ml Vial SLOW IVP 10/09/20 07:30 2 mg Q1H PRN Administration Breakthrough Pain/Agitation Propofol 1,000 mg 09/09/20 07:30 09/12/20 16:39 Propofol 1,000 Mg/100 Ml Vial IV 10/09/20 07:30 1,000 mg INF PRN Administration TO ACHIEVE GOAL RASS Protocol Sodium Chloride 10 ml 09/09/20 09:00 09/12/20 07:11 Flush - Normal Saline 10 Ml Syringe IVF 10 ml Q12HR ALIYAH Administration Tamsulosin HCl 0.4 mg 09/09/20 09:00 09/12/20 07:11 Tamsulosin Hcl 0.4 Mg Cap PO 0.4 mg DAILY ALIYAH Administration - Exam General - other findings: sedate on mech vent Eye: anicteric sclera ENT: normocephalic atraumatic, no oropharyngeal lesions ENT - other findings: ETT in place Neck: supple, symmetric, no JVD, no thyromegaly, no lymphadenopathy Heart: no gallops, no rubs, normal peripheral pulses, irregular Heart - other findings: S1, S2 Respiratory: no wheezes Respiratory - other findings: diminished in bases, scattered coarse sounds Gastrointestinal: soft, non-tender, non-distended, normal bowel sounds, no palpable masses Extremities: no cyanosis, no clubbing, 1+ LE edema Skin: normal turgor Neurological - other findings: sedate on mech vent Musculoskeletal: generalized weakness Psychiatric: somnolent, lethargic Hosp A/P (1) Pneumonia due to 2019-nCoV Code(s): U07.1 - COVID-19; J12.89 - OTHER VIRAL PNEUMONIA Status: Acute Plan: Continue Levaquin/Vancomycin/Solumedrol (2) Acute respiratory failure with hypoxia Code(s): J96.01 - ACUTE RESPIRATORY FAILURE WITH HYPOXIA Status: Acute Plan: Continue [facility] ventilation with SIMV FIO2 40%, serial PCXR (3) Sepsis Code(s): A41.9 - SEPSIS, UNSPECIFIED ORGANISM Status: Acute Qualifiers: Severe sepsis shock status: with septic shock (4) Atrial fibrillation with rapid ventricular response Code(s): I48.91 - UNSPECIFIED ATRIAL FIBRILLATION Status: Acute Plan: Rate-controlled currently, continue Coreg/Diltiazem (5) Acute renal failure Status: Acute Plan: Improved, avoid nephrotoxic meds and limit contrast (6) Morbid obesity Code(s): E66.01 - MORBID (SEVERE) OBESITY DUE TO EXCESS CALORIES Status: Chronic (7) Diabetes mellitus Code(s): E11.9 - TYPE 2 DIABETES MELLITUS WITHOUT COMPLICATIONS Status: Chronic Qualifiers: Diabetes mellitus type: type 2 Diabetes mellitus terminal operator insulin use: with half-way use Diabetes mellitus complication status: with hyperglycemia Qualified Code(s): E11.65 - Type 2 diabetes mellitus with hyperglycemia; Z79.4 - technician terminal and repeater (current) use of insulin Plan: Labile due to Solumedrol, increase Lantus 20u BID, ISS - Plan continue antibiotics, social group worker, respiratory therapy, DVT proph w/SCDs Consults: Palliative Care Continue critical support Mech ventilation with SIMV Rate-control measures for A-fib Continue IV Levaquin/Vancomycin Ventilator sedation protocol Continue Solumedrol Continue Eliquis Palliative care consult AM lab: BMP, CBC, Vanc trough PCXR in am
[2020-09-12] MEDS: Atorvastatin Calcium 40 MG TAB PO SCH (19:33)
--- NOTE | 2020-09-12 20:37 | PRG ---
DATE OF SERVICE: 09/12/2020 SUBJECTIVE: Mr. Hogan remains hemodynamically stable. He is still ventilated. OBJECTIVE: VITAL SIGNS: Respiratory rates in the 20s, oximetry is 93, FiO2 is 40, blood pressure 107/70. Oximetry is in the high 90s. Intake and outputs positive, 435. LUNGS: Remarkable for equal breath sounds. HEART: Regular rhythm. ABDOMEN: Soft. EXTREMITIES: Without edema. LABORATORY DATA: White count 2.9, hemoglobin 11.2, platelets 175. He only has 2% bands on his peripheral smear. Electrolytes are normal. BUN 43, creatinine 1.2. IMPRESSION: COVID pneumonia, respiratory failure. Today's chest radiograph shows proper placement of the tubes. The chest radiographs essentially unchanged. We will continue supportive care. We decreased his respiratory rate today, but I do not think at a point where he can safely be extubated. CRITICAL CARE TIME: 30 minutes. Job ID: [id number]
[2020-09-12] MEDS: Insulin Glargine 20 UNITS in Pre-Filled Syringe SC SCH (21:37)
[2020-09-12] MEDS: Vancomycin 1.5 GRAM/300 ML BAG 1.5 GM in Premix Bag 1 BAG IVPB SCH (21:38)
[2020-09-13] MEDS: Meropenem 2 GM, Admixture Fee 1 EACH in Sodium Chloride 0.9% 100 ML IVPB SCH ×3 (01:20→16:25)
[2020-09-13] MEDS: Propofol 1,000 MG/100 ML VIAL IV PRN ×4 (02:01→20:40)
[2020-09-13 04:51] LABS: ALT (SGPT) 36 U/L (8-55); AST (SGOT) 14 U/L (5-34); Albumin 2.6 g/dL (3.4-4.8); Alkaline Phosphatase 83 U/L (40-110); Anion Gap 16 mmol/L (10-20); BUN (Urea Nitrogen) 41 mg/dL (8.4-25.7); Bilirubin, Total 0.4 mg/dL (0.2-1.2); Calc. Creatinine Clearance 122 mL/min (70-130); Calcium 7.9 mg/dL (7.8-10.44); Carbon Dioxide 25 mmol/L (23-31); Chloride 107 mmol/L (98-107); Glucose 359 mg/dL (83-110); Potassium 4.8 mmol/L (3.5-5.1); Protein, Total 5.6 g/dL (5.8-8.1); Sodium 143 mmol/L (136-145)
[2020-09-13 04:56] LABS: Band 3 % (5-11); Hemoglobin 11.1 g/dL (14.0-18.0); Hypochromia SLIGHT = 6-15 cells (100X) (0-5/hpf); Lymphocytes 4 % (21-51); MDiff Complete? YES; Mean Corpuscular Hemoglobin 29.1 pg (27.0-31.0); Mean Corpuscular Volume 90.9 fL (78.0-98.0); Mean Platelet Volume 9.8 fL (7.4-10.4); Monocytes 10 % (0-10); Neutrophil 83 % (42-75); Platelet Count 160 thou/uL (130-400); Platelet Morphology Comment Appears Adequate; RBC Distribution Width 13.9 % (11.5-14.5); White Blood Cell (WBC) Count 10.1 thou/uL (4.8-10.8)
[2020-09-13] MEDS: methylPREDNISolone Sod Succ 40 MG VIAL IVP SCH ×4 (05:27→23:30)
[2020-09-13] MEDS: Insulin Regular 300 UNITS/3 ML VIAL SC PRN ×4 (05:30→23:30)
[2020-09-13] MEDS: Carvedilol 25 MG TAB PO SCH ×2 (08:04→16:28)
[2020-09-13] MEDS: Famotidine 20 MG TAB PO SCH ×2 (08:04→20:39)
[2020-09-13] MEDS: Tamsulosin HCl 0.4 MG CAP PO SCH (08:04)
[2020-09-13] MEDS: Apixaban 5 MG TAB PO SCH ×2 (08:04→20:40)
[2020-09-13] MEDS: Diltiazem HCl SR 90 mg Capsule PO SCH ×2 (08:05→20:39)
--- NOTE | 2020-09-13 08:57 | RAD ---
PORTABLE CHEST: Date: 09/13/2020 HISTORY: COVID pneumonia follow-up. COMPARISON: Prior day's exam. FINDINGS: Endotracheal tube is in satisfactory position. Bilateral lung infiltrates which are right upper and l eft lower lobe predominant and are stable. IMPRESSION: Stable exam. POS: [facility]
[2020-09-13] MEDS ORDERED: Fentanyl CADD 100 ML IV SCH (09:00)
[2020-09-13] MEDS: Insulin Glargine 20 UNITS in Pre-Filled Syringe SC SCH (09:34)
[2020-09-13] MEDS ORDERED: Furosemide 40 MG/4 ML VIAL IVP SCH (10:23)
--- NOTE | 2020-09-13 15:18 | PDOC.HOSPP ---
- Subjective Encounter Date: 09/13/20 Encounter Time: 15:15 Subjective: f[facility]u for [facility] Glucose labile per nursing. - Objective Vital Signs & Weight: Vital Signs (12 hours) Pulse Resp 09/13/20 14:00 22 H 09/13/20 13:56 89 09/13/20 12:00 30 H 09/13/20 10:00 26 H 09/13/20 08:00 24 H 09/13/20 07:40 87 09/13/20 06:00 28 H 09/13/20 05:00 15 09/13/20 04:00 18 Weight Admit Weight 321 lb 3.416 oz Weight 5.309 oz Most Recent Monitor Data Heart Rate from ECG 84 NIBP 124/76 NIBP BP-Mean 92 Respiration from ECG 24 SpO2 97 I&O: 09/12/20 09/13/20 09/14/20 06:59 06:59 06:59 Intake Total 1618.2 1970.1 120 Output Total 1183 1278 1845 Balance 435.2 692.1 -1725 Result Diagrams: 09/13/20 03:43 09/13/20 03:43 Additional Labs: Accuchecks 09/13/20 09/13/20 09/12/20 12:29 05:17 21:34 POC Glucose 405 H 358 H 305 H 09/12/20 09/12/20 16:31 00:19 POC Glucose 326 H 342 H Microbiology 09/08/20 13:55 Venous blood - Right Arm Blood Culture - Preliminary Specimen has been received and culture in pr ogress. No Growth to date. 09/08/20 13:55 Venous blood - Right Arm Blood Culture - Preliminary NO GROWTH AT 48 HOURS 09/08/20 13:45 Venous blood - Right Arm Blood Culture - Preliminary Specimen has been received and culture in progress. No Growth to date. 09/08/20 13:45 Venous blood - Right Arm Blood Culture - Preliminary NO GROWTH AT 48 HOURS Laboratory Tests 09/08/20 09/08/20 09/08/20 13:45 18:43 20:13 WBC Neutrophils % (Manual) Potassium Carbon Dioxide 20 L BUN Creatinine 1.09 Lactic Acid 3.1 H Vancomycin Trough Random Vancomycin Influenza A RNA INAAT Not Detected Influenza B RNA INAAT Not Detected SARS-CoV-2 Rap RNA(RT-PCR) DETECTED A* 09/08/20 09/08/20 09/09/20 21:27 22:52 06:47 WBC Neutrophils % (Manual) Potassium 5.8 H Carbon Dioxide BUN 28 H Creatinine 1.84 H Lactic Acid 2.0 2.9 H Vancomycin Trough Random Vancomycin Influenza A RNA INAAT Influenza B RNA INAAT SARS-CoV-2 Rap RNA(RT-PCR) 09/09/20 09/10/20 09/10/20 06:47 04:15 09:16 WBC 16.6 H Neutrophils % (Manual) 93 H Potassium Carbon Dioxide BUN Creatinine 1.96 H Lactic Acid Vancomycin Trough 35.0 H* Random Vancomycin Influenza A RNA INAAT Influenza B RNA INAAT SARS-CoV-2 Rap RNA(RT-PCR) 09/11/20 10:14 WBC Neutrophils % (Manual) Potassium Carbon Dioxide BUN Creatinine Lactic Acid Vancomycin Trough Random Vancomycin 22.3 Influenza A RNA INAAT Influenza B RNA INAAT SARS-CoV-2 Rap RNA(RT-PCR) Radiology Reviewed by me: Yes (PCXR - bilat infiltrates, lines/tubes in place) Hospitalist ROS - Medication Medications: Active Medications Generic Name Dose Route Start Last Admin Trade Name Freq PRN Reason Stop Dose Admin Albuterol/Ipratropium 3 ml 09/10/20 10:30 09/13/20 14:00 Ipratropium/Albuterol Sulfate 3 Ml Neb NEB 3 ml [id number] ALIYAH Administration Apixaban 5 mg 09/08/20 21:00 09/13/20 08:04 Apixaban 5 Mg Tab PO 5 mg BID ALIYAH Administration Atorvastatin Calcium 40 mg 09/08/20 21:00 09/12/20 19:33 Atorvastatin Calcium 40 Mg Tab PO 40 mg HS ALIYAH Administration Carvedilol 25 mg 09/08/20 08:00 09/13/20 08:04 Carvedilol 25 Mg Tab PO 25 mg BID-WM ALIYAH Administration Diltiazem HCl 90 mg 09/08/20 21:00 09/13/20 08:05 Diltiazem Hcl Sr 90 Mg Capsule PO 90 mg BID ALIYAH Administration Famotidine 20 mg 09/12/20 21:00 09/13/20 08:04 Famotidine 20 Mg Tab PO 20 mg BID ALIYAH Administration Meropenem 2 gm/ Miscellaneous 100 mls @ 200 mls/hr 09/09/20 17:00 09/13/20 09:35 Medication 1 each/ Sodium IVPB 100 mls Chloride 0100,0900,1700 ALIYAH Administration Norepinephrine Bitartrate 8 mg 250 mls @ 0 mls/hr 09/10/20 05:07 09/10/20 07:50 / Device IVPB 250 mls INF PRN Administration TO MAINTAIN MAP > 65 Protocol As Directed Vancomycin HCl 1.5 gm/ Device 300 mls @ 200 mls/hr 09/11/20 22:00 09/12/20 21:38 IVPB 300 mls 2200 ALIYAH Administration Levofloxacin 750 mg/ Device 150 mls @ 100 mls/hr 09/11/20 21:00 09/11/20 20:30 IVPB 150 mls Q2D@2100 ALIYAH Administration Insulin Human Regular 0 units 09/08/20 20:03 09/13/20 12:38 Insulin Regular 300 Units/3 Ml Vial SC 13 units .AGGRESSIVE SLIDING PRN Administration Aggressive Correctional Scale Lorazepam 2 mg 09/09/20 07:30 09/11/20 21:22 Lorazepam 2 Mg/Ml Vial SLOW IVP 10/09/20 07:30 2 mg Q1H PRN Administration Breakthrough agitation Methylprednisolone Sodium Succinate 20 mg 09/13/20 12:00 09/13/20 13:20 Methylprednisolone Sod Succ 40 Mg Vial IVP 20 mg Q6HR ALIYAH Administration Morphine Sulfate 2 mg 09/09/20 07:30 09/12/20 14:23 Morphine 2 Mg/Ml Vial SLOW IVP 10/09/20 07:30 2 mg Q1H PRN Administration Breakthrough Pain/Agitation Propofol 1,000 mg 09/09/20 07:30 09/13/20 05:27 Propofol 1,000 Mg/100 Ml Vial IV 10/09/20 07:30 1,000 mg INF PRN Administration TO ACHIEVE GOAL RASS Protocol Sodium Chloride 10 ml 09/09/20 09:00 09/13/20 08:05 Flush - Normal Saline 10 Ml Syringe IVF 10 ml Q12HR ALIYAH Administration Tamsulosin HCl 0.4 mg 09/09/20 09:00 09/13/20 08:04 Tamsulosin Hcl 0.4 Mg Cap PO 0.4 mg DAILY ALIYAH Administration - Exam General - other findings: sedate on mech vent Eye: PERRL, anicteric sclera ENT: normocephalic atraumatic, no oropharyngeal lesions ENT - other findings: ETT in place Neck: supple, symmetric, no JVD, no thyromegaly, no lymphadenopathy Heart: no gallops, no rubs, normal peripheral pulses, irregular Heart - other findings: S1, S2 Respiratory - other findings: diminished bilat, scattered coarse sounds Gastrointestinal: soft, non-tender, non-distended, normal bowel sounds, no palpable masses Extremities: no cyanosis, 1+ LE edema Skin: normal turgor Musculoskeletal: generalized weakness Psychiatric: somnolent, lethargic Hosp A/P (1) Pneumonia due to 2019-nCoV Code(s): U07.1 - COVID-19; J12.89 - OTHER VIRAL PNEUMONIA Status: Acute Plan: Continue Solumedrol/Levaquin/Meropenem/Vancomycin/Eliquis (2) Acute respiratory failure with hypoxia Code(s): J96.01 - ACUTE RESPIRATORY FAILURE WITH HYPOXIA Status: Acute Plan: Continue mech ventilation, wean as clinically indicated (3) Sepsis Code(s): A41.9 - SEPSIS, UNSPECIFIED ORGANISM Status: Acute Qualifiers: Severe sepsis shock status: with septic shock (4) Atrial fibrillation with rapid ventricular response Code(s): I48.91 - UNSPECIFIED ATRIAL FIBRILLATION Status: Acute Plan: Rate-controlled currently, continue Coreg/Diltiazem/Eliquis (5) Acute renal failure Status: Acute Plan: Improved, continue supportive mgmt, avoid nephrotoxic meds and limit contrast (6) Morbid obesity Code(s): E66.01 - MORBID (SEVERE) OBESITY DUE TO EXCESS CALORIES Status: Chronic (7) Diabetes mellitus Code(s): E11.9 - TYPE 2 DIABETES MELLITUS WITHOUT COMPLICATIONS Status: Chronic Qualifiers: Diabetes mellitus type: type 2 Diabetes mellitus detention insulin use: with technician terminal and repeater use Diabetes mellitus complication status: with hyperglycemia Qualified Code(s): E11.65 - Type 2 diabetes mellitus with hyperglycemia; Z79.4 - halfway (current) use of insulin Plan: Labile, increase Lantus 30u BID, ISS - Plan continue antibiotics, healthcare social worker, respiratory therapy, DVT proph w/SCDs Continue critical support Mech ventilation with SIMV Rate-control measures for A-fib Continue IV Levaquin/Vancomycin/Meropenem Ventilator sedation protocol Continue Solumedrol Continue Eliquis Palliative care consult Increase Lantus 30u BID AM lab: BMP, CBC, Vanc trough PCXR in am
--- NOTE | 2020-09-13 18:34 | PRG ---
DATE OF SERVICE: 09/13/2020 SUBJECTIVE: Pete Hogan remains mechanically ventilated. OBJECTIVE: VITAL SIGNS: Respiratory rate is in the teens, FiO2 is at 40%, heart rate is in 70s to 80s, blood pressure 135/81. Intake and outputs positive 692. LUNGS: Remarkable for coarse equal breath sounds. HEART: Regular rhythm. ABDOMEN: Soft. EXTREMITIES: Without asymmetry or edema. LABORATORY DATA: Chest radiograph persistent with abnormalities right upper and left lower lobe. These are unchanged. IMPRESSION: Nosocomial pneumonia after COVID in July. PLAN: Continue supportive care. His ejection fraction by echocardiogram was normal, but the echo technically was difficult. He had atrial fibrillation. I suspect his respiratory failure is a combination of pneumonia, COPD, and decreased reserve, aggravated a little by the rapid atrial fibrillation. Probably benefit from bronchoscopy perhaps in the morning just to make sure he did not have an obstruction in his right upper lobe. Overall, he appears to be stable at this time. CRITICAL CARE TIME: 30 minutes. Job ID: [id number]
[2020-09-13] MEDS: Atorvastatin Calcium 40 MG TAB PO SCH (20:39)
[2020-09-13] MEDS: Insulin Glargine 30 UNITS in Pre-Filled Syringe 1 EACH SC SCH (20:41)
[2020-09-13] MEDS ORDERED: Insulin Glargine 20 UNITS in Pre-Filled Syringe 1 EACH SC SCH (21:00)
[2020-09-13 21:19] LABS: Vancomycin, Trough 16.9 ug/mL
[2020-09-13] MEDS: Vancomycin 1.5 GRAM/300 ML BAG 1.5 GM in Premix Bag 1 BAG IVPB SCH (22:18)
[2020-09-14] MEDS: Meropenem 2 GM, Admixture Fee 1 EACH in Sodium Chloride 0.9% 100 ML IVPB SCH ×3 (01:17→16:22)
[2020-09-14] MEDS: Propofol 1,000 MG/100 ML VIAL IV PRN ×4 (01:22→20:59)
[2020-09-14 04:26] LABS: ALT (SGPT) 40 U/L (8-55); AST (SGOT) 22 U/L (5-34); Albumin 2.6 g/dL (3.4-4.8); Alkaline Phosphatase 90 U/L (40-110); Anion Gap 17 mmol/L (10-20); BUN (Urea Nitrogen) 42 mg/dL (8.4-25.7); Bilirubin, Total 0.4 mg/dL (0.2-1.2); Calc. Creatinine Clearance 0 mL/min (70-130); Calcium 7.7 mg/dL (7.8-10.44); Carbon Dioxide 28 mmol/L (23-31); Chloride 105 mmol/L (98-107); Globulin 2.9 g/dL (2.4-3.5); Glucose 437 mg/dL (83-110); Potassium 4.5 mmol/L (3.5-5.1); Protein, Total 5.5 g/dL (5.8-8.1); Sodium 145 mmol/L (136-145)
[2020-09-14 04:34] LABS: Hemoglobin 11.5 g/dL (14.0-18.0); Mean Corpuscular HGB CONC 31.7 g/dL (32.0-36.0); Mean Corpuscular Volume 91.5 fL (78.0-98.0); Platelet Count 170 thou/uL (130-400); Red Blood Cell (RBC) Count 3.96 mill/uL (4.70-6.10); White Blood Cell (WBC) Count 10.4 thou/uL (4.8-10.8)
[2020-09-14 04:58] LABS: Band 3 % (5-11); Lymphocytes 5 % (21-51); MDiff Complete? YES; Monocytes 1 % (0-10); Neutrophil 90 % (42-75); Reactive Lymphocytes 1 % (0-10)
[2020-09-14] MEDS: Insulin Regular 300 UNITS/3 ML VIAL SC PRN ×3 (05:37→18:08)
[2020-09-14] MEDS: methylPREDNISolone Sod Succ 40 MG VIAL IVP SCH ×3 (05:37→18:08)
[2020-09-14] MEDS: Apixaban 5 MG TAB PO SCH ×2 (08:59→20:45)
[2020-09-14] MEDS: Carvedilol 25 MG TAB PO SCH ×2 (08:59→16:22)
[2020-09-14] MEDS: Tamsulosin HCl 0.4 MG CAP PO SCH (08:59)
[2020-09-14] MEDS: Diltiazem HCl SR 90 mg Capsule PO SCH ×2 (08:59→21:22)
[2020-09-14] MEDS: Famotidine 20 MG TAB PO SCH ×2 (09:00→20:45)
[2020-09-14] MEDS: Insulin Glargine 30 UNITS in Pre-Filled Syringe 1 EACH SC SCH ×2 (09:09→20:59)
--- NOTE | 2020-09-14 09:18 | RAD ---
PORTABLE CHEST: Date: 09/14/2020 HISTORY: Follow-up COVID pneumonia. COMPARISON: Prior day's exam. FINDINGS: Heart size is enlarged. Extensive bilateral lung infiltrates are stable. Endotracheal tube and centra l line are in satisfactory and unchanged position. IMPRESSION: Stable exam. POS: TONYA
--- NOTE | 2020-09-14 13:55 | PRG ---
DATE OF SERVICE: 09/14/2020 SUBJECTIVE: Pete Hogan remains ventilated. OBJECTIVE: VITAL SIGNS: Heart rates in the 90s, FiO2 is at 40, blood pressure 134/98, respiratory rates in the 20s. LUNGS: Remarkable for rhonchi bilaterally. HEART: Regular rate and rhythm. ABDOMEN: Soft and nontender. He has significant truncal obesity. EXTREMITIES: Without asymmetry. LABORATORY DATA: White count 10.4, hemoglobin 11.5, platelets 170. Electrolytes are normal. BUN 42, creatinine 0.9. IMPRESSION: 1. Respiratory failure. 2. History of chronic obstructive pulmonary disease reportedly. 3. History of COVID in July. 4. Probable COPD exacerbation with bronchitis and a component perhaps of bacterial pneumonia. 5. History of diastolic dysfunction. Still has very abnormal radiograph. 6. He is in negative fluid balance, last 24 hours with a negative 1050. His weight was reportedly 326 on admission. He weighed 331 yesterday. There is no weight recorded today. 7. As long as his renal function tolerates, he probably needs to remain in negative fluid balance. 8. He will not wean in my opinion without a tracheostomy. 9. He is on Cardizem for atrial fibrillation. 10. He is also diabetic. 11. His broad antimicrobial therapy will continue. His steroid dosing was decreased yesterday. 12. I really do not see any cultures that would justify continuing him with vancomycin. Critical care time 30 min. Job ID: [id number] MTDD
--- NOTE | 2020-09-14 18:51 | PDOC.HOSPP ---
- Subjective Encounter Date: 09/14/20 Encounter Time: 17:35 Subjective: f/u for COVID PNA/hypoxic resp failure on mech ventilation. Slow mech vent wean likely need trach. Nursing reports pt not tolerating TF's but had 1 BM. - Objective Vital Signs & Weight: Vital Signs (12 hours) Pulse Resp Pulse Ox 09/14/20 18:00 18 09/14/20 16:00 18 09/14/20 14:05 83 09/14/20 14:00 18 09/14/20 12:00 18 09/14/20 10:37 96 09/14/20 10:00 17 09/14/20 08:00 18 93 L 09/14/20 07:37 86 Weight Admit Weight 321 lb 3.416 oz Weight 5.288 oz Most Recent Monitor Data Heart Rate from ECG 88 NIBP 156/95 NIBP BP-Mean 115 Respiration from ECG 30 SpO2 88 I&O: 09/13/20 09/14/20 09/15/20 06:59 06:59 06:59 Intake Total 1970.1 1814.7 701.2 Output Total 1278 2865 725 Balance 692.1 -1050.3 -23.8 Result Diagrams: 09/14/20 03:17 09/14/20 03:17 Additional Labs: Accuchecks 09/14/20 09/14/20 09/13/20 17:51 05:36 23:29 POC Glucose 256 H 394 H 368 H 09/13/20 20:37 POC Glucose 348 H Microbiology 09/08/20 13:55 Venous blood - Right Arm Blood Culture - Preliminary Specimen has been received and culture in progress. No Growth to date. 09/08/20 13:55 Venous blood - Right Arm Blood Culture - Preliminary NO GROWTH AT 48 HOURS 09/08/20 13:45 Venous blood - Right Arm Blood Culture - Preliminary Specimen has been received and culture in progres s. No Growth to date. 09/08/20 13:45 Venous blood - Right Arm Blood Culture - Preliminary NO GROWTH AT 48 HOURS Laboratory Tests 09/08/20 09/08/20 09/08/20 13:45 18:43 20:13 WBC Neutrophils % (Manual) Potassium Carbon Dioxide 20 L BUN Creatinine 1.09 Lactic Acid 3.1 H Vancomycin Trough Random Vancomycin Influenza A RNA INAAT Not Detected Influenza B RNA INAAT Not Detected SARS-CoV-2 Rap RNA(RT-PCR) DETECTED A* 09/08/20 09/08/20 09/09/20 21:27 22:52 06:47 WBC Neutrophils % (Manual) Potassium 5.8 H Carbon Dioxide BUN 28 H Creatinine 1.84 H Lactic Acid 2.0 2.9 H Vancomycin Trough Random Vancomycin Influenza A RNA INAAT Influenza B RNA INAAT SARS-CoV-2 Rap RNA(RT-PCR) 09/09/20 09/10/20 09/10/20 06:47 04:15 09:16 WBC 16.6 H Neutrophils % (Manual) 93 H Potassium Carbon Dioxide BUN Creatinine 1.96 H Lactic Acid Vancomycin Trough 35.0 H* Random Vancomycin Influenza A RNA INAAT Influenza B RNA INAAT SARS-CoV-2 Rap RNA(RT-PCR) 09/11/20 10:14 WBC Neutrophils % (Manual) Potassium Carbon Dioxide BUN Creatinine Lactic Acid Vancomycin Trough Random Vancomycin 22.3 Influenza A RNA INAAT Influenza B RNA INAAT SARS-CoV-2 Rap RNA(RT-PCR) Radiology Reviewed by me: Yes (PCXR - extensive bilat infiltrates, lines/tubes in place) EKG Reviewed by me: Yes (Tele - A-fib) Hospitalist ROS - Medication Medications: Active Medications Generic Name Dose Route Start Last Admin Trade Name Freq PRN Reason Stop Dose Admin Albuterol/Ipratropium 3 ml 09/10/20 10:30 09/14/20 14:03 Ipratropium/Albuterol Sulfate 3 Ml Neb NEB 3 ml [id number] ALIYAH Administration Apixaban 5 mg 09/08/20 21:00 09/14/20 08:59 Apixaban 5 Mg Tab PO 5 mg BID ALIYAH Administration Atorvastatin Calcium 40 mg 09/08/20 21:00 09/13/20 20:39 Atorvastatin Calcium 40 Mg Tab PO 40 mg HS ALIYAH Administration Carvedilol 25 mg 09/08/20 08:00 09/14/20 16:22 Carvedilol 25 Mg Tab PO 25 mg BID-WM ALIYAH Administration Diltiazem HCl 90 mg 09/08/20 21:00 09/14/20 08:59 Diltiazem Hcl Sr 90 Mg Capsule PO 90 mg BID ALIYAH Administration Famotidine 20 mg 09/12/20 21:00 09/14/20 09:00 Famotidine 20 Mg Tab PO 20 mg BID ALIYAH Administration Meropenem 2 gm/ Miscellaneous 100 mls @ 200 mls/hr 09/09/20 17:00 09/14/20 16:22 Medication 1 each/ Sodium IVPB 100 mls Chloride 0100,0900,1700 ALIYAH Administration Norepinephrine Bitartrate 8 mg 250 mls @ 0 mls/hr 09/10/20 05:07 09/10/20 07:50 / Device IVPB 250 mls INF PRN Administration TO MAINTAIN MAP > 65 Protocol As Directed Levofloxacin 750 mg/ Device 150 mls @ 100 mls/hr 09/11/20 21:00 09/13/20 20:38 IVPB 150 mls Q2D@2100 ALIYAH Administration Insulin Glargine 30 units/ 0.3 mls @ 0.1 mls/hr 09/13/20 21:00 09/14/20 09:09 Miscellaneous Medication SC 0.3 mls BID ALIYAH Administration Insulin Human Regular 0 units 09/08/20 20:03 09/14/20 18:08 Insulin Regular 300 Units/3 Ml Vial SC 9 units .AGGRESSIVE SLIDING PRN Administration Aggressive Correctional Scale Lorazepam 2 mg 09/09/20 07:30 09/11/20 21:22 Lorazepam 2 Mg/Ml Vial SLOW IVP 10/09/20 07:30 2 mg Q1H PRN Administration Breakthrough agitation Methylprednisolone Sodium Succinate 20 mg 09/13/20 12:00 09/14/20 18:08 Methylprednisolone Sod Succ 40 Mg Vial IVP 20 mg Q6HR ALIYAH Administration Morphine Sulfate 2 mg 09/09/20 07:30 09/12/20 14:23 Morphine 2 Mg/Ml Vial SLOW IVP 10/09/20 07:30 2 mg Q1H PRN Administration Breakthrough Pain/Agitation Propofol 1,000 mg 09/09/20 07:30 09/14/20 16:16 Propofol 1,000 Mg/100 Ml Vial IV 10/09/20 07:30 1,000 mg INF PRN Administration TO ACHIEVE GOAL RASS Protocol Sodium Chloride 10 ml 09/09/20 09:00 09/14/20 08:59 Flush - Normal Saline 10 Ml Syringe IVF 10 ml Q12HR ALIYAH Administration Tamsulosin HCl 0.4 mg 09/09/20 09:00 09/14/20 08:59 Tamsulosin Hcl 0.4 Mg Cap PO 0.4 mg DAILY ALIYAH Administration - Exam General Appearance: ill appearing General - other findings: sedate on mech vent Eye: anicteric sclera ENT: normocephalic atraumatic, no oropharyngeal lesions ENT - other findings: ETT/OGT in place Neck: supple, symmetric, no JVD, no thyromegaly, no lymphadenopathy Heart: no gallops, no rubs, normal peripheral pulses, irregular Heart - other findings: S1, S2 Respiratory - other findings: diminished bilat, scattered coarse sounds Gastrointestinal: soft, non-tender, non-distended, normal bowel sounds, no palpable masses Extremities: no cyanosis, no clubbing, 1+ LE edema Skin: normal turgor Psychiatric: somnolent, lethargic Hosp A/P (1) Pneumonia due to 2019-nCoV Code(s): U07.1 - COVID-19; J12.89 - OTHER VIRAL PNEUMONIA Status: Acute Plan: Continue Levaquin/Meropenem/Solumedrol/Eliquis (2) Acute respiratory failure with hypoxia Code(s): J96.01 - ACUTE RESPIRATORY FAILURE WITH HYPOXIA Status: Acute Plan: Continue mech vent, likely will need trach (3) Sepsis Code(s): A41.9 - SEPSIS, UNSPECIFIED ORGANISM Status: Acute Qualifiers: Severe sepsis shock status: with septic shock (4) Atrial fibrillation with rapid ventricular response Code(s): I48.91 - UNSPECIFIED ATRIAL FIBRILLATION Status: Acute Plan: Rate-controlled with Coreg/Diltiazem/Eliquis (5) Acute renal failure Status: Acute (6) Morbid obesity Code(s): E66.01 - MORBID (SEVERE) OBESITY DUE TO EXCESS CALORIES Status: Chronic (7) Diabetes mellitus Code(s): E11.9 - TYPE 2 DIABETES MELLITUS WITHOUT COMPLICATIONS Status: Chronic Qualifiers: Diabetes mellitus type: type 2 Diabetes mellitus halfway insulin use: with halfway use Diabetes mellitus complication status: with hyperglycemia Qualified Code(s): E11.65 - Type 2 diabetes mellitus with hyperglycemia; Z79.4 - long-term (current) use of insulin - Plan continue antibiotics, social services coordinator, respiratory therapy, out of bed/ambulate, DVT proph w/SCDs Consults: Palliative Care Continue critical support Mech ventilation with SIMV, likely will need trach Rate-control measures for A-fib, continue Coreg/Diltiazem Continue IV Levaquin/Meropenem Ventilator sedation protocol Continue Solumedrol Continue Eliquis Palliative care consult Increase Lantus 30u BID Trial Reglan 10mg IV q6h AM lab: BMP, CBC, Vanc trough PCXR in am
[2020-09-14] MEDS: Atorvastatin Calcium 40 MG TAB PO SCH (20:44)
[2020-09-15] MEDS: methylPREDNISolone Sod Succ 40 MG VIAL IVP SCH ×5 (00:05→23:13)
[2020-09-15] MEDS: Morphine 2 MG/ML VIAL SLOW IVP PRN (02:42)
[2020-09-15] MEDS: Propofol 1,000 MG/100 ML VIAL IV PRN ×5 (02:42→23:01)
[2020-09-15] MEDS: Meropenem 2 GM, Admixture Fee 1 EACH in Sodium Chloride 0.9% 100 ML IVPB SCH ×3 (02:44→17:41)
[2020-09-15 05:37] LABS: ALT (SGPT) 38 U/L (8-55); AST (SGOT) 17 U/L (5-34); Albumin 2.6 g/dL (3.4-4.8); Alkaline Phosphatase 87 U/L (40-110); Anion Gap 15 mmol/L (10-20); BUN (Urea Nitrogen) 42 mg/dL (8.4-25.7); Bilirubin, Total 0.3 mg/dL (0.2-1.2); Calc. Creatinine Clearance 0 mL/min (70-130); Carbon Dioxide 29 mmol/L (23-31); Chloride 108 mmol/L (98-107); Globulin 2.9 g/dL (2.4-3.5); Glucose 198 mg/dL (83-110); Protein, Total 5.5 g/dL (5.8-8.1); Sodium 147 mmol/L (136-145)
[2020-09-15 05:43] LABS: Band 2 % (5-11); Hemoglobin 11.7 g/dL (14.0-18.0); Lymphocytes 7 % (21-51); MDiff Complete? YES; Mean Corpuscular HGB CONC 31.6 g/dL (32.0-36.0); Mean Corpuscular Hemoglobin 28.8 pg (27.0-31.0); Mean Corpuscular Volume 91.1 fL (78.0-98.0); Mean Platelet Volume 10.4 fL (7.4-10.4); Monocytes 2 % (0-10); Myelocyte 1 % (0-0); Neutrophil 87 % (42-75); Platelet Count 185 thou/uL (130-400); RBC Distribution Width 14.1 % (11.5-14.5); Reactive Lymphocytes 1 % (0-10); Red Blood Cell (RBC) Count 4.05 mill/uL (4.70-6.10); White Blood Cell (WBC) Count 11.8 thou/uL (4.8-10.8)
[2020-09-15] MEDS: Insulin Regular 300 UNITS/3 ML VIAL SC PRN ×3 (06:45→17:41)
[2020-09-15] MEDS: Famotidine 20 MG TAB PO SCH ×2 (08:14→20:29)
[2020-09-15] MEDS: Tamsulosin HCl 0.4 MG CAP PO SCH (08:14)
[2020-09-15] MEDS: Insulin Glargine 30 UNITS in Pre-Filled Syringe 1 EACH SC SCH ×2 (08:15→20:28)
[2020-09-15] MEDS: Apixaban 5 MG TAB PO SCH ×2 (08:15→20:30)
[2020-09-15] MEDS: Carvedilol 25 MG TAB PO SCH ×2 (08:15→17:32)
[2020-09-15] MEDS: Diltiazem HCl SR 90 mg Capsule PO SCH ×2 (08:15→20:29)
--- NOTE | 2020-09-15 08:33 | RAD ---
XR Chest 1 View Portable History: Ventilated patient Comparison: Radiograph prior day Findings: Endotracheal tube tip at the clavicular level. Enteric tube tip below diaphragm although ou t of field of view. Patchy airspace opacities. The left IJ central venous catheter tip mid SVC. Trace effusions. Impression: Similar examination of the chest without improved lung aeration.
[2020-09-15] MEDS ORDERED: Furosemide 40 MG/4 ML VIAL SLOW IVP SCH (09:00)
--- NOTE | 2020-09-15 10:15 | PDOC.HOSPP ---
- Subjective Encounter Date: 09/15/20 Encounter Time: 10:14 Subjective: Patient recently diagnosed with covid 19 pneumonia about 6weeks ago. He has since had multiple hospitalizations. He was re-admitted with respiratory failure and is now intubated and mechanically ventilated. No family at bedside. We will continue mechanical ventilation and will defer to pulmonary services about weaning when deemed appropriate. - Objective Vital Signs & Weight: Vital Signs (12 hours) Pulse Resp 09/15/20 07:17 92 09/15/20 05:00 17 09/15/20 04:00 18 09/15/20 02:21 93 09/15/20 02:00 18 09/15/20 00:00 18 09/14/20 22:24 89 Weight Admit Weight 321 lb 3.416 oz Weight 331 lb 9.204 oz Most Recent Monitor Data Heart Rate from ECG 96 NIBP 164/108 NIBP BP-Mean 126 Respiration from ECG 16 SpO2 91 I&O: 09/14/20 09/15/20 09/16/20 06:59 06:59 06:59 Intake Total 1814.7 1092.40 249.4 Output Total 2865 1245 490 Balance -1050.3 -152.60 -240.6 Result Diagrams: 09/15/20 03:15 09/15/20 03:15 Additional Labs: Accuchecks 09/15/20 09/14/20 09/14/20 06:41 20:51 17:51 POC Glucose 214 H 240 H 256 H Radiology Reviewed by me: Yes EKG Reviewed by me: Yes Hospitalist ROS - Review of Systems ROS unobtainable: due to endotracheal tube Respiratory: reports: shortness of breath, wheezing Neurological: reports: weakness, numbness - Medication Medications: Active Medications Generic Name Dose Route Start Last Admin Trade Name Freq PRN Reason Stop Dose Admin Albuterol/Ipratropium 3 ml 09/10/20 10:30 09/15/20 07:15 Ipratropium/Albuterol Sulfate 3 Ml Neb NEB 3 ml [id number] ALIYAH Administration Apixaban 5 mg 09/08/20 21:00 09/15/20 08:15 Apixaban 5 Mg Tab PO 5 mg BID ALIYAH Administration Atorvastatin Calcium 40 mg 09/08/20 21:00 09/14/20 20:44 Atorvastatin Calcium 40 Mg Tab PO 40 mg HS ALIYAH Administration Carvedilol 25 mg 09/08/20 08:00 09/15/20 08:15 Carvedilol 25 Mg Tab PO 25 mg BID-WM ALIYAH Administration Diltiazem HCl 90 mg 09/08/20 21:00 09/15/20 08:15 Diltiazem Hcl Sr 90 Mg Capsule PO 90 mg BID ALIYAH Administration Famotidine 20 mg 09/12/20 21:00 09/15/20 08:14 Famotidine 20 Mg Tab PO 20 mg BID ALIYAH Administration Furosemide 40 mg 09/15/20 09:00 09/15/20 08:15 Furosemide 40 Mg/4 Ml Vial SLOW IVP 40 mg DAILY ALIYAH Administration Meropenem 2 gm/ Miscellaneous 100 mls @ 200 mls/hr 09/09/20 17:00 09/15/20 09:49 Medication 1 each/ Sodium IVPB 100 mls Chloride 0100,0900,1700 ALIYAH Administration Norepinephrine Bitartrate 8 mg 250 mls @ 0 mls/hr 09/10/20 05:07 09/10/20 07:50 / Device IVPB 250 mls INF PRN Administration TO MAINTAIN MAP > 65 Protocol As Directed Levofloxacin 750 mg/ Device 150 mls @ 100 mls/hr 09/11/20 21:00 09/13/20 20:38 IVPB 150 mls Q2D@2100 ALIYAH Administration Insulin Glargine 30 units/ 0.3 mls @ 0.1 mls/hr 09/13/20 21:00 09/15/20 08:15 Miscellaneous Medication SC 0.3 mls BID ALIYAH Administration Insulin Human Regular 0 units 09/08/20 20:03 09/15/20 06:45 Insulin Regular 300 Units/3 Ml Vial SC 6 units .AGGRESSIVE SLIDING PRN Administration Aggressive Correctional Scale Lorazepam 2 mg 09/09/20 07:30 09/11/20 21:22 Lorazepam 2 Mg/Ml Vial SLOW IVP 10/09/20 07:30 2 mg Q1H PRN Administration Breakthrough agitation Methylprednisolone Sodium Succinate 20 mg 09/13/20 12:00 09/15/20 05:05 Methylprednisolone Sod Succ 40 Mg Vial IVP 20 mg Q6HR ALIYAH Administration Morphine Sulfate 2 mg 09/09/20 07:30 09/15/20 02:42 Morphine 2 Mg/Ml Vial SLOW IVP 10/09/20 07:30 2 mg Q1H PRN Administration Breakthrough Pain/Agitation Propofol 1,000 mg 09/09/20 07:30 09/15/20 08:16 Propofol 1,000 Mg/100 Ml Vial IV 10/09/20 07:30 1,000 mg INF PRN Administration TO ACHIEVE GOAL RASS Protocol Sodium Chloride 10 ml 09/09/20 09:00 09/15/20 08:17 Flush - Normal Saline 10 Ml Syringe IVF 10 ml Q12HR ALIYAH Administration Tamsulosin HCl 0.4 mg 09/09/20 09:00 09/15/20 08:14 Tamsulosin Hcl 0.4 Mg Cap PO 0.4 mg DAILY ALIYAH Administration - Exam General Appearance: ill appearing ENT: normocephalic atraumatic, no oropharyngeal lesions, moist mucosa Neck: supple, symmetric, no JVD, no thyromegaly Heart: RRR, no murmur, no gallops, no rubs Respiratory: normal chest expansion, tachypneic, wheezes Gastrointestinal: soft, non-tender, non-distended, normal bowel sounds, no palpable masses, no hepatomegaly Neurological - other findings: INTUBATED AND MECHANICALLY VENTILATED. Psychiatric: not oriented, somnolent, lethargic Hosp A/P (1) Acute respiratory failure with hypoxia Code(s): J96.01 - ACUTE RESPIRATORY FAILURE WITH HYPOXIA Status: Acute Plan: He remains intubated and mechanically ventilated. (2) Pneumonia due to 2019-nCoV Code(s): U07.1 - COVID-19; J12.89 - OTHER VIRAL PNEUMONIA Status: Acute Plan: He remains intubated and mechanically ventilated. He is on Solumedrol, meropenem. (3) Atrial fibrillation with rapid ventricular response Code(s): I48.91 - UNSPECIFIED ATRIAL FIBRILLATION Status: Acute (4) CHF exacerbation Code(s): I50.9 - HEART FAILURE, UNSPECIFIED Status: Acute Plan: Continue diuresis as above. He is on IV Lasix. (5) COPD exacerbation Code(s): J44.1 - CHRONIC OBSTRUCTIVE PULMONARY DISEASE W (ACUTE) EXACERBATION Status: Acute - Plan old records reviewed/req, PT/OT, respiratory therapy, incentive spirometry
--- NOTE | 2020-09-15 10:18 | EKG ---
Test Reason : SOB Blood Pressure : / mmHG Vent. Rate : 158 BPM Atrial Rate : 159 BPM P-R Int : 000 ms QRS Dur : 086 ms QT Int : 298 ms P-R-T Axes : 000 -17 103 degrees QTc Int : 483 ms Atrial fibrillation with rapid ventricular response with premature ventricular or aberrantly conducte d complexes Nonspecific ST and T wave abnormality Abnormal ECG Confirmed by MOSES FALL [id number]), proposal editor JO VALERIO ([id number]) on 09/15/2020 10:18:29 AM Referred By: Confirmed By:MOSES Saldana
--- NOTE | 2020-09-15 11:37 | PRG ---
DATE OF SERVICE: 09/15/2020 SUBJECTIVE: The patient remains in the ICU on mechanical ventilation. He seems to be fairly deeply sedated. OBJECTIVE: VITAL SIGNS: Temperature 98.1, pulse 96, blood pressure 164/108. HEENT: Unremarkable. NECK: No adenopathy or JVD. LUNGS: Coarse breath sounds. CARDIAC: S1, S2. Regular. ABDOMEN: Soft. EXTREMITIES: Edematous. LABORATORY DATA: White blood cell count 11.8, hematocrit 36.9, and platelet count 185. Sodium 147, potassium 5, chloride 108, CO2 of 29, BUN 42, creatinine 0.8, glucose 198. Chest x-ray demonstrates bilateral infiltrates which are worse on the right compared to the left. ASSESSMENT: 1. Respiratory failure requiring mechanical ventilation. 2. Chronic obstructive pulmonary disease. 3. COVID in July. 4. Acute respiratory failure requiring mechanical ventilation. 5. Diastolic heart failure. 6. Acute renal insufficiency. 7. Developing hyperkalemia. PLAN: I would agree that he is not weanable at this time. We should continue current mechanical ventilation and make a goal for tracheostomy early next week. I do not see anything that could be increasing his potassium. We will continue to monitor that closely. Job ID: [id number]
[2020-09-15] MEDS: Metoclopramide HCl 10 MG/2 ML VIAL IVP PRN (11:58)
[2020-09-15] MEDS ORDERED: Fentanyl CADD 100 ML ONE (14:06)
[2020-09-15] MEDS: Atorvastatin Calcium 40 MG TAB PO SCH (20:29)
[2020-09-16] MEDS: Insulin Regular 300 UNITS/3 ML VIAL SC PRN ×5 (01:24→23:59)
[2020-09-16] MEDS: Meropenem 2 GM, Admixture Fee 1 EACH in Sodium Chloride 0.9% 100 ML IVPB SCH ×3 (03:05→17:54)
[2020-09-16] MEDS: Propofol 1,000 MG/100 ML VIAL IV PRN ×4 (03:05→19:26)
[2020-09-16 04:46] LABS: ALT (SGPT) 56 U/L (8-55); AST (SGOT) 59 U/L (5-34); Albumin 2.5 g/dL (3.4-4.8); Alkaline Phosphatase 87 U/L (40-110); Anion Gap 13 mmol/L (10-20); BUN (Urea Nitrogen) 46 mg/dL (8.4-25.7); Bilirubin, Total 0.4 mg/dL (0.2-1.2); Calc. Creatinine Clearance 161 mL/min (70-130); Carbon Dioxide 33 mmol/L (23-31); Chloride 105 mmol/L (98-107); Globulin 2.9 g/dL (2.4-3.5); Glucose 305 mg/dL (83-110); Protein, Total 5.4 g/dL (5.8-8.1); Sodium 146 mmol/L (136-145)
[2020-09-16 05:19] LABS: Band 1 % (5-11); Hemoglobin 11.6 g/dL (14.0-18.0); Lymphocytes 7 % (21-51); MDiff Complete? YES; Mean Corpuscular HGB CONC 31.1 g/dL (32.0-36.0); Mean Corpuscular Hemoglobin 28.5 pg (27.0-31.0); Mean Corpuscular Volume 91.7 fL (78.0-98.0); Mean Platelet Volume 10.6 fL (7.4-10.4); Monocytes 3 % (0-10); Myelocyte 3 % (0-0); Neutrophil 86 % (42-75); Platelet Count 172 thou/uL (130-400); Red Blood Cell (RBC) Count 4.08 mill/uL (4.70-6.10); White Blood Cell (WBC) Count 10.2 thou/uL (4.8-10.8)
[2020-09-16] MEDS: Morphine 2 MG/ML VIAL SLOW IVP PRN (05:25)
[2020-09-16] MEDS: methylPREDNISolone Sod Succ 40 MG VIAL IVP SCH ×3 (05:26→20:47)
[2020-09-16] MEDS ORDERED: hydrALAZINE 20 MG/ML VIAL SLOW IVP PRN (07:55)
--- NOTE | 2020-09-16 09:01 | RAD ---
XR Chest 1 View Portable History: Ventilated patient Comparison: Radiograph prior day Findings: Endotracheal tube tip sits above the delfino approximately 15 mm. Enteric tube tip gastric b mau. Heart size is enlarged. Hilar and peripheral opacities are similar. No acute osseous abnormality. The left IJ approach centra l venous catheter is unchanged. Impression: Similar examination of the chest without improved lung aeration from yesterday. Relative to the September 09, 2020 exam, the lung aeration has improved.
[2020-09-16] MEDS: Diltiazem HCl SR 90 mg Capsule PO SCH ×2 (09:18→20:47)
[2020-09-16] MEDS: Tamsulosin HCl 0.4 MG CAP PO SCH (09:19)
[2020-09-16] MEDS: Apixaban 5 MG TAB PO SCH ×2 (09:19→20:46)
[2020-09-16] MEDS: Famotidine 20 MG TAB PO SCH ×2 (09:19→20:46)
[2020-09-16] MEDS: Carvedilol 25 MG TAB PO SCH ×2 (09:19→17:54)
[2020-09-16] MEDS: Insulin Glargine 30 UNITS in Pre-Filled Syringe 1 EACH SC SCH ×2 (09:19→21:00)
--- NOTE | 2020-09-16 12:49 | PRG ---
DATE OF SERVICE: 09/16/2020 SUBJECTIVE: The patient remains intubated on mechanical ventilation. He is fairly sedated. OBJECTIVE: VITAL SIGNS: Temperature 97.6, pulse 82, blood pressure 181/121, saturating at 98%. He is currently on fentanyl and propofol. Intake for 24 hours 1212 and output 2220. HEENT: Unremarkable except for being intubated. NECK: No JVD. LUNGS: Coarse breath sounds. CARDIAC: S1, S2. Regular. ABDOMEN: Soft. EXTREMITIES: No edema. IMAGING STUDIES: Chest x-ray shows cardiomegaly and ET tube in good position. LABORATORY DATA: White blood cell count 10.2, hematocrit 37.4, and platelet count 172. Sodium 146, potassium 5, chloride 105, CO2 of 33, BUN 46, creatinine 0.7, glucose 305. ASSESSMENT: 1. Chronic obstructive pulmonary disease. 2. COVID over a month ago. 3. Acute respiratory failure requiring mechanical ventilation. 4. Diastolic heart failure. 5. Acute renal insufficiency. 6. Hyperkalemia. PLAN: He will need a tracheostomy in the upcoming week to facilitate weaning. Potassium remains marginally high. His blood sugars need to be under much better control and that may bring the potassium down. I think this is being steered somewhat by the prednisone, so I will decrease that to twice daily dose. He is on a fairly substantial dose of Lantus insulin twice daily. Job ID: [id number]
[2020-09-16] MEDS: Furosemide 40 MG/4 ML VIAL SLOW IVP SCH (13:58)
--- NOTE | 2020-09-16 14:19 | PDOC.HOSPP ---
- Subjective Encounter Date: 09/16/20 Encounter Time: 14:18 non-verbal Subjective: Mr. Hogan remains intubated and mechanically ventilated. He has respiratory failure secondary to COVID-19 pneumonia. He has been on variety of antibiotics right now he is on Levaquin day #6 and meropenem day #7. A repeat chest x-ray shows unchanged infiltrates. His blood pressure appears to be elevated and I am going to increase his Lasix and add hydralazine as a as needed. His lab work shows increasing LFTs and it is unclear if he has any abdominal symptoms. I suspect the transaminitis may be related to hepatic congestion from the pneumonia. We will watch his labs close. - Objective Vital Signs & Weight: Vital Signs (12 hours) Temp Pulse Resp BP Pulse Ox 09/16/20 12:00 98.2 F 12 09/16/20 11:26 91 12 99 09/16/20 11:01 89 131/87 09/16/20 10:00 15 09/16/20 08:00 13 09/16/20 07:50 78 18 99 09/16/20 07:38 80 174/127 H 09/16/20 07:00 97.6 F 09/16/20 06:00 17 09/16/20 04:00 16 09/16/20 03:00 79 Weight Admit Weight 321 lb 3.416 oz Weight 330 lb 11.094 oz Most Recent Monitor Data Heart Rate from ECG 83 NIBP 123/80 NIBP BP-Mean 94 Respiration from ECG 19 SpO2 100 I&O: 09/15/20 09/16/20 09/17/20 06:59 06:59 06:59 Intake Total 1092.40 1212.75 220 Output Total 1245 2220 335 Balance -152.60 -1007.25 -115 Result Diagrams: 09/16/20 03:45 09/16/20 03:45 Additional Labs: Accuchecks 09/16/20 09/16/20 09/16/20 10:30 06:19 00:22 POC Glucose 257 H 260 H 270 H 09/15/20 17:29 POC Glucose 277 H Radiology Reviewed by me: Yes EKG Reviewed by me: Yes Hospitalist ROS - Review of Systems ROS unobtainable: due to endotracheal tube Constitutional: reports: weakness Gastrointestinal: reports: nausea Neurological: reports: weakness - Medication Medications: Active Medications Generic Name Dose Route Start Last Admin Trade Name Freq PRN Reason Stop Dose Admin Albuterol/Ipratropium 3 ml 09/10/20 10:30 09/16/20 11:26 Ipratropium/Albuterol Sulfate 3 Ml Neb NEB 3 ml [id number] ALIYAH Administration Apixaban 5 mg 09/08/20 21:00 09/16/20 09:19 Apixaban 5 Mg Tab PO 5 mg BID ALIYAH Administration Atorvastatin Calcium 40 mg 09/08/20 21:00 09/15/20 20:29 Atorvastatin Calcium 40 Mg Tab PO 40 mg HS ALIYAH Administration Carvedilol 25 mg 09/08/20 08:00 09/16/20 09:19 Carvedilol 25 Mg Tab PO 25 mg BID-WM ALIYAH Administration Diltiazem HCl 90 mg 09/08/20 21:00 09/16/20 09:18 Diltiazem Hcl Sr 90 Mg Capsule PO 90 mg BID ALIYAH Administration Famotidine 20 mg 09/12/20 21:00 09/16/20 09:19 Famotidine 20 Mg Tab PO 20 mg BID ALIYAH Administration Furosemide 40 mg 09/16/20 14:00 09/16/20 13:58 Furosemide 40 Mg/4 Ml Vial SLOW IVP 40 mg 0600,1400 ALIYAH Administration Meropenem 2 gm/ Miscellaneous 100 mls @ 200 mls/hr 09/09/20 17:00 09/16/20 11:41 Medication 1 each/ Sodium IVPB 100 mls Chloride 0100,0900,1700 ALIYAH Administration Norepinephrine Bitartrate 8 mg 250 mls @ 0 mls/hr 09/10/20 05:07 09/10/20 07:50 / Device IVPB 250 mls INF PRN Administration TO MAINTAIN MAP > 65 Protocol As Directed Levofloxacin 750 mg/ Device 150 mls @ 100 mls/hr 09/11/20 21:00 09/15/20 20:32 IVPB 150 mls Q2D@2100 ALIYAH Administration Fentanyl 100 mls @ 0 mls/hr 09/13/20 09:00 09/15/20 14:14 Fentanyl Cadd IV 10/13/20 09:00 100 mls INF ALIYAH Administration Protocol Per Protocol Insulin Glargine 30 units/ 0.3 mls @ 0.1 mls/hr 09/13/20 21:00 09/16/20 09:19 Miscellaneous Medication SC 0.3 mls BID ALIYAH Administration Insulin Human Regular 0 units 09/08/20 20:03 09/16/20 11:44 Insulin Regular 300 Units/3 Ml Vial SC 9 units .AGGRESSIVE SLIDING PRN Administration Aggressive Correctional Scale Lorazepam 2 mg 09/09/20 07:30 09/11/20 21:22 Lorazepam 2 Mg/Ml Vial SLOW IVP 10/09/20 07:30 2 mg Q1H PRN Administration Breakthrough agitation Metoclopramide HCl 10 mg 09/14/20 18:50 09/15/20 11:58 Metoclopramide Hcl 10 Mg/2 Ml Vial IVP 10 mg Q6H PRN Administration Nausea/Vomiting Morphine Sulfate 2 mg 09/09/20 07:30 09/16/20 05:25 Morphine 2 Mg/Ml Vial SLOW IVP 10/09/20 07:30 2 mg Q1H PRN Administration Breakthrough Pain/Agitation Propofol 1,000 mg 09/09/20 07:30 09/16/20 09:18 Propofol 1,000 Mg/100 Ml Vial IV 10/09/20 07:30 1,000 mg INF PRN Administration TO ACHIEVE GOAL RASS Protocol Sodium Chloride 10 ml 09/09/20 09:00 09/16/20 11:42 Flush - Normal Saline 10 Ml Syringe IVF 10 ml Q12HR ALIYAH Administration Tamsulosin HCl 0.4 mg 09/09/20 09:00 09/16/20 09:19 Tamsulosin Hcl 0.4 Mg Cap PO 0.4 mg DAILY ALIYAH Administration - Exam General Appearance: NAD, ill appearing Eye: PERRL, anicteric sclera ENT: normocephalic atraumatic, no oropharyngeal lesions Neck: supple, symmetric, no JVD Heart: RRR, no murmur, no gallops, no rubs Respiratory: CTAB, no wheezes, no rales, no ronchi Gastrointestinal: soft, non-tender, non-distended, normal bowel sounds Extremities: 2+ LE edema Musculoskeletal: normal tone, generalized weakness Psychiatric: not oriented, somnolent, lethargic Hosp A/P (1) Acute respiratory failure with hypoxia Code(s): J96.01 - ACUTE RESPIRATORY FAILURE WITH HYPOXIA Status: Acute Plan: He remains intubated and ventilated. 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 (2) Pneumonia due to 2019-nCoV Code(s): U07.1 - COVID-19; J12.89 - OTHER VIRAL PNEUMONIA Status: Acute (3) Atrial fibrillation with rapid ventricular response Code(s): I48.91 - UNSPECIFIED ATRIAL FIBRILLATION Status: Acute (4) CHF exacerbation Code(s): I50.9 - HEART FAILURE, UNSPECIFIED Status: Acute (5) COPD exacerbation Code(s): J44.1 - CHRONIC OBSTRUCTIVE PULMONARY DISEASE W (ACUTE) EXACERBATION Status: Acute - Plan old records reviewed/req, plan discussed w/ family, PT/OT Consults: Palliative Care
[2020-09-16] MEDS: Atorvastatin Calcium 40 MG TAB PO SCH (20:47)
[2020-09-17] MEDS: Propofol 1,000 MG/100 ML VIAL IV PRN ×2 (00:17→06:32)
[2020-09-17] MEDS: Meropenem 2 GM, Admixture Fee 1 EACH in Sodium Chloride 0.9% 100 ML IVPB SCH ×3 (00:43→17:55)
[2020-09-17 04:54] LABS: ALT (SGPT) 47 U/L (8-55); AST (SGOT) 29 U/L (5-34); Albumin 2.6 g/dL (3.4-4.8); Alkaline Phosphatase 82 U/L (40-110); Anion Gap 13 mmol/L (10-20); BUN (Urea Nitrogen) 45 mg/dL (8.4-25.7); Bilirubin, Total 0.3 mg/dL (0.2-1.2); Calc. Creatinine Clearance 160 mL/min (70-130); Calcium 8.2 mg/dL (7.8-10.44); Carbon Dioxide 36 mmol/L (23-31); Chloride 104 mmol/L (98-107); Globulin 2.8 g/dL (2.4-3.5); Glucose 227 mg/dL (83-110); Potassium 5.1 mmol/L (3.5-5.1); Protein, Total 5.4 g/dL (5.8-8.1); Sodium 148 mmol/L (136-145)
[2020-09-17 05:16] LABS: Band 3 % (5-11); Hemoglobin 12.1 g/dL (14.0-18.0); Lymphocytes 5 % (21-51); MDiff Complete? YES; Mean Corpuscular HGB CONC 30.9 g/dL (32.0-36.0); Mean Corpuscular Volume 93.8 fL (78.0-98.0); Mean Platelet Volume 10.8 fL (7.4-10.4); Monocytes 2 % (0-10); Neutrophil 90 % (42-75); Nucleated RBC 1 % (0); Platelet Count 168 thou/uL (130-400); RBC Distribution Width 14.2 % (11.5-14.5); Red Blood Cell (RBC) Count 4.18 mill/uL (4.70-6.10); White Blood Cell (WBC) Count 10.5 thou/uL (4.8-10.8)
[2020-09-17] MEDS: Furosemide 40 MG/4 ML VIAL SLOW IVP SCH (05:55)
[2020-09-17] MEDS: Insulin Regular 300 UNITS/3 ML VIAL SC PRN ×3 (05:55→17:55)
--- NOTE | 2020-09-17 09:10 | RAD ---
CHEST 1 VIEW: Date: 09/17/2020 HISTORY: Ventilated patient. COMPARISON: Radiograph prior day. FINDINGS: Endotracheal tube tip above the delfino, 4.0 cm. The left IJ central venous catheter is similar. Enter ic tube tip below diaphragm, though out of field of view. Air space opacities are similar without imp rovement. No acute osseous abnormality. IMPRESSION: Similar examination of the chest given the rightward patient rotation. Relative to the examination 1 week prior, findings are also similar. POS: [facility]
[2020-09-17] MEDS: methylPREDNISolone Sod Succ 40 MG VIAL IVP SCH ×2 (09:16→21:22)
[2020-09-17] MEDS: Famotidine 20 MG TAB PO SCH ×2 (09:16→21:23)
[2020-09-17] MEDS: Tamsulosin HCl 0.4 MG CAP PO SCH (09:16)
[2020-09-17] MEDS: Apixaban 5 MG TAB PO SCH ×2 (09:16→21:23)
[2020-09-17] MEDS: Diltiazem HCl SR 90 mg Capsule PO SCH ×2 (09:17→21:24)
[2020-09-17] MEDS: Carvedilol 25 MG TAB PO SCH ×2 (09:17→17:55)
[2020-09-17] MEDS: Insulin Glargine 30 UNITS in Pre-Filled Syringe 1 EACH SC SCH ×2 (09:18→21:25)
--- NOTE | 2020-09-17 13:01 | PDOC.HOSPP ---
- Subjective Encounter Date: 09/17/20 Encounter Time: 13:00 non-verbal Subjective: Mr. Hogan continues to remain on the ventilator. Repeat chest x-ray has not shown any significant improvement. He has slight hyponatremia with a serum sodium of 148. His potassium is 5.1. He has remained afebrile and white count has since normalized. He is tolerating the meropenem and today is day #8 on meropenem. We will watch his electrolytes closely and he may need Kayexalate at some point. He likely needs some free water supplementation - Objective Vital Signs & Weight: Vital Signs (12 hours) Temp Pulse Resp BP Pulse Ox 09/17/20 11:51 102 H 14 91 L 09/17/20 11:41 102 H 09/17/20 10:00 12 09/17/20 08:00 13 94 L 09/17/20 07:14 84 112/79 09/17/20 07:00 98.6 F 09/17/20 06:00 13 09/17/20 04:00 15 09/17/20 02:36 88 107/74 09/17/20 02:00 12 Weight Admit Weight 321 lb 3.416 oz Weight 329 lb 9.457 oz Most Recent Monitor Data Heart Rate from ECG 97 NIBP 126/77 NIBP BP-Mean 93 Respiration from ECG 15 SpO2 92 I&O: 09/16/20 09/17/20 09/18/20 06:59 06:59 06:59 Intake Total 1212.75 1138.6 210 Output Total 2220 2080 1255 Balance -1007.25 -941.4 -1045 Result Diagrams: 09/17/20 03:30 09/17/20 03:30 Additional Labs: Accuchecks 09/17/20 09/17/20 09/16/20 10:26 04:22 22:18 POC Glucose 187 H 198 H 218 H 09/16/20 09/15/20 09/14/20 16:55 11:35 12:29 POC Glucose 236 H 270 H 351 H 09/14/20 09:02 POC Glucose 374 H Radiology Reviewed by me: Yes EKG Reviewed by me: Yes Hospitalist ROS - Review of Systems ROS unobtainable: due to mental status Constitutional: reports: weakness, malaise Respiratory: reports: shortness of breath Neurological: reports: weakness - Medication Medications: Active Medications Generic Name Dose Route Start Last Admin Trade Name Freq PRN Reason Stop Dose Admin Albuterol/Ipratropium 3 ml 09/10/20 10:30 09/17/20 11:51 Ipratropium/Albuterol Sulfate 3 Ml Neb NEB 3 ml [id number] ALIYAH Administration Apixaban 5 mg 09/08/20 21:00 09/17/20 09:16 Apixaban 5 Mg Tab PO 5 mg BID ALIYAH Administration Atorvastatin Calcium 40 mg 09/08/20 21:00 09/16/20 20:47 Atorvastatin Calcium 40 Mg Tab PO 40 mg HS ALIYAH Administration Carvedilol 25 mg 09/08/20 08:00 09/17/20 09:17 Carvedilol 25 Mg Tab PO 25 mg BID-WM ALIYAH Administration Diltiazem HCl 90 mg 09/08/20 21:00 09/17/20 09:17 Diltiazem Hcl Sr 90 Mg Capsule PO 90 mg BID ALIYAH Administration Famotidine 20 mg 09/12/20 21:00 09/17/20 09:16 Famotidine 20 Mg Tab PO 20 mg BID ALIYAH Administration Meropenem 2 gm/ Miscellaneous 100 mls @ 200 mls/hr 09/09/20 17:00 09/17/20 10:25 Medication 1 each/ Sodium IVPB 100 mls Chloride 0100,0900,1700 ALIYAH Administration Norepinephrine Bitartrate 8 mg 250 mls @ 0 mls/hr 09/10/20 05:07 09/10/20 0 7:50 / Device IVPB 250 mls INF PRN Administration TO MAINTAIN MAP > 65 Protocol As Directed Fentanyl 100 mls @ 0 mls/hr 09/13/20 09:00 09/15/20 14:14 Fentanyl Cadd IV 10/13/20 09:00 100 mls INF ALIYAH Administration Protocol Per Protocol Insulin Glargine 30 units/ 0.3 mls @ 0.1 mls/hr 09/13/20 21:00 09/17/20 09:18 Miscellaneous Medication SC 0.3 mls BID ALIYAH Administration Insulin Human Regular 0 units 09/08/20 20:03 09/17/20 10:29 Insulin Regular 300 Units/3 Ml Vial SC 3 units .AGGRESSIVE SLIDING PRN Administration Aggressive Correctional Scale Lorazepam 2 mg 09/09/20 07:30 09/11/20 21:22 Lorazepam 2 Mg/Ml Vial SLOW IVP 10/09/20 07:30 2 mg Q1H PRN Administration Breakthrough agitation Methylprednisolone Sodium Succinate 20 mg 09/16/20 21:00 09/17/20 09:16 Methylprednisolone Sod Succ 40 Mg Vial IVP 20 mg BID ALIYAH Administration Metoclopramide HCl 10 mg 09/14/20 18:50 09/15/20 11:58 Metoclopramide Hcl 10 Mg/2 Ml Vial IVP 10 mg Q6H PRN Administration Nausea/Vomiting Morphine Sulfate 2 mg 09/09/20 07:30 09/16/20 05:25 Morphine 2 Mg/Ml Vial SLOW IVP 10/09/20 07:30 2 mg Q1H PRN Administration Breakthrough Pain/Agitation Propofol 1,000 mg 09/09/20 07:30 09/17/20 06:32 Propofol 1,000 Mg/100 Ml Vial IV 10/09/20 07:30 1,000 mg INF PRN Administration TO ACHIEVE GOAL RASS Protocol Sodium Chloride 10 ml 09/09/20 09:00 09/17/20 09:43 Flush - Normal Saline 10 Ml Syringe IVF 10 ml Q12HR ALIYAH Administration Tamsulosin HCl 0.4 mg 09/09/20 09:00 09/17/20 09:16 Tamsulosin Hcl 0.4 Mg Cap PO 0.4 mg DAILY ALIYAH Administration - Exam General Appearance: NAD, ill appearing General - other findings: Intubated and mechanically ventilated Eye: PERRL ENT: normocephalic atraumatic, no oropharyngeal lesions Neck: supple, symmetric, no JVD, no thyromegaly, no lymphadenopathy Heart: RRR, no murmur, no gallops, no rubs, normal peripheral pulses Respiratory: no tachypnea, rales Gastrointestinal: soft, non-tender, non-distended, normal bowel sounds Musculoskeletal: normal tone Psychiatric: not oriented, somnolent, lethargic Hosp A/P (1) Acute respiratory failure with hypoxia Code(s): J96.01 - ACUTE RESPIRATORY FAILURE WITH HYPOXIA Status: Acute Plan: He has remained on mechanical ventilation. We will defer weaning to the critical care team. (2) Pneumonia due to 2019-nCoV Code(s): U07.1 - COVID-19; J12.89 - OTHER VIRAL PNEUMONIA Status: Acute Plan: Continue supportive care. He has remained on meropenem. (3) Atrial fibrillation with rapid ventricular response Code(s): I48.91 - UNSPECIFIED ATRIAL FIBRILLATION Status: Acute Plan: The patient is on Cardizem twice daily. Heart rate appears controlled. Continue Eliquis. (4) CHF exacerbation Code(s): I50.9 - HEART FAILURE, UNSPECIFIED Status: Acute (5) COPD exacerbation Code(s): J44.1 - CHRONIC OBSTRUCTIVE PULMONARY DISEASE W (ACUTE) EXACERBATION Status: Acute - Plan old records reviewed/req, respiratory therapy, incentive spirometry
--- NOTE | 2020-09-17 14:43 | PDOC.PALCO ---
Palliative Care Consult - Consult Details Requesting Physician: Dr Rainey/Dr Montoya Reason for Consult: goals of care, complex decision-making - Pertinent HPI 80 year old gentleman who initially presented to [facility] secondary to respiratory failure. Diagnosed with Covid pneumonia August 05 and has had multiple hospitalizations since secondary to Covid pneumonia. Patient was most recently discharged 5 days prior presentation to [facility]. He was found to have increasing shortness of breath, in A fib with RVR, heart rate in 150's and sating at 80%. Initially placed on Bipap, subsequent intubation. Patient currently not weanable, remains sedated and on pressure support with Levophed. Hyponatremic with elevated K at 5.1 - Pertinent PMH DM II, Afib, CAD, HTN - Social History Smoking Status: Never smoker Smoking: no tobacco exposure Alcohol Use: none Drug Use History: none - Medications MAR Reviewed: Yes - Allergies Allergies/Adverse Reactions: Allergies Allergy/AdvReac Type Severity Reaction Status Date / Time Penicillins Allergy Verified 08/27/20 22:17 - ROS Non Response: due to endotracheal tube, due to mental status - Objective Vital Signs: Vital Signs - Most Recent Temp Pulse Resp BP Pulse Ox 98.6 F 102 H 14 112/79 91 L 09/17/20 07:00 09/17/20 11:51 09/17/20 11:51 09/17/20 07:14 09/17/20 11:51 Palliative Performance Scale: 20 - Physical Exam Constitutional: ill appearing HEENT: sclera anicteric Deviation from normal: Bilaterally mildly coarse, intubated/mechanical ventilation Cardiovascular: RRR Gastrointestinal: soft, non-tender, positive bowel sounds Genitourinary: ma catheter Musculoskeletal: no clubbing, edema present, diffuse muscle atrophy Skin: cap refill <2 seconds, no lesions, no rash Deviation from normal: Pallor Deviation from normal: Encephalopathic - Problem List (1) Respiratory failure requiring intubation Code(s): J96.90 - RESPIRATORY FAILURE, UNSP, UNSP W HYPOXIA OR HYPERCAPNIA Current Visit: Yes Status: Acute (2) Palliative care encounter Code(s): Z51.5 - ENCOUNTER FOR PALLIATIVE CARE Current Visit: No Status: Acute (3) Physical deconditioning Code(s): R53.81 - OTHER MALAISE Current Visit: No Status: Acute (4) Pneumonia due to 2019-nCoV Code(s): U07.1 - COVID-19; J12.89 - OTHER VIRAL PNEUMONIA Current Visit: No Status: Acute (5) CHF (congestive heart failure) Code(s): I50.9 - HEART FAILURE, UNSPECIFIED Current Visit: No Status: Chronic Qualifiers: Heart failure type: diastolic Heart failure chronicity: chronic Qualified Code(s): I50.32 - Chronic diastolic (congestive) heart failure (6) COPD (chronic obstructive pulmonary disease) Current Visit: No Status: Chronic Qualifiers: Chronic bronchitis type: unspecified - Plan/Recommendations Plan: Lives by his daughter Aranza. She is currently planning her husbands and requesting to delay discussing goal of care. [id number] recently Patient directives are in chart. Requests all measures be done to sustain life. Ethical consideration would be if he has meaningful recovery or if decline presents consideration of futile care. Estimated 3 emergency room visits since July 2020 with three admissions. Will revisit Goal of care paired with meaningful recovery with patient daughter. Please also refer to Palliative Care notes in note section. [50] minutes spent on this encounter with >50% of the time in counseling and coordination of care. Thank you for this very appropriate consult.
--- NOTE | 2020-09-17 17:06 | PRG ---
DATE OF SERVICE: 09/17/2020 SUBJECTIVE: Mr. Hogan remains mechanically ventilated. OBJECTIVE: VITAL SIGNS: Heart rates in the 90s, respiratory rates in the teens, blood pressure 114/73, FiO2 is at 40%. He has a prolonged expiratory phase and he has exam findings suggestive of muscle weakness. LUNGS: Unchanged. HEART: Unchanged. ABDOMEN: Unchanged. DIAGNOSTIC STUDIES: Chest x-ray is unchanged. IMPRESSION AND PLAN: 1. Chronic obstructive pulmonary disease exacerbation, possible bacterial bronchitis plus or minus pneumonia. 2. COVID infection in the recent past, not contributing to this illness. Given his extreme deconditioning, I would think a tracheostomy would be the next best option if the family is willing to proceed with this and probably his best chance for any type of survival. Critical care time 30 min. Job ID: [id number] MTDD
[2020-09-17] MEDS: Atorvastatin Calcium 40 MG TAB PO SCH (21:23)
[2020-09-18] MEDS: Insulin Regular 300 UNITS/3 ML VIAL SC PRN ×4 (00:34→17:55)
[2020-09-18] MEDS: Propofol 1,000 MG/100 ML VIAL IV PRN ×4 (00:58→22:15)
[2020-09-18] MEDS: Meropenem 2 GM, Admixture Fee 1 EACH in Sodium Chloride 0.9% 100 ML IVPB SCH ×3 (02:12→17:55)
[2020-09-18] MEDS ORDERED: Fentanyl CADD 100 ML ONE (03:35)
[2020-09-18 05:13] LABS: Band 9 % (5-11); Hemoglobin 12.4 g/dL (14.0-18.0); Lymphocytes 12 % (21-51); MDiff Complete? YES; Mean Corpuscular HGB CONC 31.6 g/dL (32.0-36.0); Mean Corpuscular Hemoglobin 29.1 pg (27.0-31.0); Mean Platelet Volume 11.3 fL (7.4-10.4); Monocytes 6 % (0-10); Neutrophil 73 % (42-75); Platelet Count 169 thou/uL (130-400); Red Blood Cell (RBC) Count 4.24 mill/uL (4.70-6.10); White Blood Cell (WBC) Count 9.8 thou/uL (4.8-10.8)
[2020-09-18 05:17] LABS: ALT (SGPT) 83 U/L (8-55); AST (SGOT) 65 U/L (5-34); Albumin 2.5 g/dL (3.4-4.8); Alkaline Phosphatase 87 U/L (40-110); Anion Gap 15 mmol/L (10-20); BUN (Urea Nitrogen) 45 mg/dL (8.4-25.7); Bilirubin, Total 0.4 mg/dL (0.2-1.2); Calc. Creatinine Clearance 162 mL/min (70-130); Calcium 8.5 mg/dL (7.8-10.44); Carbon Dioxide 37 mmol/L (23-31); Chloride 103 mmol/L (98-107); Globulin 2.8 g/dL (2.4-3.5); Glucose 224 mg/dL (83-110); Protein, Total 5.3 g/dL (5.8-8.1); Sodium 150 mmol/L (136-145)
[2020-09-18] MEDS: Famotidine 20 MG TAB PO SCH ×2 (08:54→21:40)
[2020-09-18] MEDS: Tamsulosin HCl 0.4 MG CAP PO SCH (08:54)
[2020-09-18] MEDS: methylPREDNISolone Sod Succ 40 MG VIAL IVP SCH ×2 (08:54→20:52)
[2020-09-18] MEDS: Diltiazem HCl SR 90 mg Capsule PO SCH ×2 (08:54→20:53)
[2020-09-18] MEDS: Apixaban 5 MG TAB PO SCH ×2 (08:54→20:52)
[2020-09-18] MEDS: Carvedilol 25 MG TAB PO SCH ×2 (08:54→17:55)
[2020-09-18] MEDS: Insulin Glargine 30 UNITS in Pre-Filled Syringe 1 EACH SC SCH ×2 (09:21→20:53)
--- NOTE | 2020-09-18 13:41 | PDOC.HOSPP ---
- Subjective Encounter Date: 09/18/20 Encounter Time: 13:39 non-verbal Subjective: Mr. Hogan remains on the ventilator. Critical care planning tracheostomy to help with weaning. The patient appears to be tolerating the vent settings well. We will defer to critical care team about vent management. Respiratory failure likely in the context of COVID-19 pneumonia. - Objective Vital Signs & Weight: Vital Signs (12 hours) Temp Pulse Resp Pulse Ox 09/18/20 13:00 98.0 F 09/18/20 12:00 14 09/18/20 10:35 95 09/18/20 10:00 14 09/18/20 08:00 15 96 09/18/20 07:19 92 09/18/20 07:00 98.3 F 09/18/20 06:00 16 09/18/20 04:00 22 H 09/18/20 02:00 19 09/18/20 01:57 83 Weight Admit Weight 321 lb 3.416 oz Weight 328 lb 7.82 oz Most Recent Monitor Data Heart Rate from ECG 92 NIBP 104/72 NIBP BP-Mean 82 Respiration from ECG 11 SpO2 96 I&O: 09/17/20 09/18/20 09/19/20 06:59 06:59 06:59 Intake Total 1138.6 875 220 Output Total 2080 6626 460 Balance -941.4 -1591 -240 Result Diagrams: 09/18/20 03:30 09/18/20 03:30 Additional Labs: Accuchecks 09/18/20 09/18/20 09/17/20 10:34 05:03 22:04 POC Glucose 213 H 217 H 173 H 09/17/20 16:57 POC Glucose 174 H Radiology Reviewed by me: Yes EKG Reviewed by me: Yes Hospitalist ROS - Review of Systems ROS unobtainable: due to mental status Constitutional: reports: weakness, malaise Gastrointestinal: reports: nausea Neurological: reports: weakness All other systems reviewed; all pertinent +/- noted in HPI/Subj - Medication Medications: Active Medications Generic Name Dose Route Start Last Admin Trade Name Freq PRN Reason Stop Dose Admin Albuterol/Ipratropium 3 ml 09/10/20 10:30 09/18/20 10:35 Ipratropium/Albuterol Sulfate 3 Ml Neb NEB 3 ml [id number] ALIYAH Administration Apixaban 5 mg 09/08/20 21:00 09/18/20 08:54 Apixaban 5 Mg Tab PO 5 mg BID ALIYAH Administration Atorvastatin Calcium 40 mg 09/08/20 21:00 09/17/20 21:23 Atorvastatin Calcium 40 Mg Tab PO 40 mg HS ALIYAH Administration Carvedilol 25 mg 09/08/20 08:00 09/18/20 08:54 Carvedilol 25 Mg Tab PO 25 mg BID-WM ALIYAH Administration Diltiazem HCl 90 mg 09/08/20 21:00 09/18/20 08:54 Diltiazem Hcl Sr 90 Mg Capsule PO 90 mg BID ALIYAH Administration Famotidine 20 mg 09/12/20 21:00 09/18/20 08:54 Famotidine 20 Mg Tab PO 20 mg BID ALIYAH Administration Meropenem 2 gm/ Miscellaneous 100 mls @ 200 mls/hr 09/09/20 17:00 09/18/20 08:54 Medication 1 each/ Sodium IVPB 100 mls Chloride 0100,0900,1700 ALIYAH Administration Norepinephrine Bitartrate 8 mg 250 mls @ 0 mls/hr 09/10/20 05:07 09/10/20 07:50 / Device IVPB 250 mls INF PRN Administration TO MAINTAIN MAP > 65 Protocol As Directed Fentanyl 100 mls @ 0 mls/hr 09/13/20 09:00 09/15/20 14:14 Fentanyl Cadd IV 10/13/20 09:00 100 mls INF LAIYAH Administration Protocol Per Protocol Insulin Glargine 30 units/ 0.3 mls @ 0.1 mls/hr 09/13/20 21:00 09/18/20 09:21 Miscellaneous Medication SC 0.3 mls BID ALIYAH Administration Levofloxacin 750 mg/ Device 150 mls @ 100 mls/hr 09/17/20 21:00 09/17/20 21:23 IVPB 150 mls Q24HR ALIYAH Administration Insulin Human Regular 0 units 09/08/20 20:03 09/18/20 11:56 Insulin Regular 300 Units/3 Ml Vial SC 6 units .AGGRESSIVE SLIDING PRN Administration Aggressive Correctional Scale Lorazepam 2 mg 09/09/20 07:30 09/11/20 21:22 Lorazepam 2 Mg/Ml Vial SLOW IVP 10/09/20 07:30 2 mg Q1H PRN Administration Breakthrough agitation Methylprednisolone Sodium Succinate 20 mg 09/16/20 21:00 09/18/20 08:54 Methylprednisolone Sod Succ 40 Mg Vial IVP 20 mg BID ALIYAH Administration Metoclopramide HCl 10 mg 09/14/20 18:50 09/15/20 11:58 Metoclopramide Hcl 10 Mg/2 Ml Vial IVP 10 mg Q6H PRN Administration Nausea/Vomiting Morphine Sulfate 2 mg 09/09/20 07:30 09/16/20 05:25 Morphine 2 Mg/Ml Vial SLOW IVP 10/09/20 07:30 2 mg Q1H PRN Administration Breakthrough Pain/Agitation Propofol 1,000 mg 09/09/20 07:30 09/18/20 09:22 Propofol 1,000 Mg/100 Ml Vial IV 10/09/20 07:30 1,000 mg INF PRN Administration TO ACHIEVE GOAL RASS Protocol Sodium Chloride 10 ml 09/09/20 09:00 09/18/20 08:55 Flush - Normal Saline 10 Ml Syringe IVF 10 ml Q12HR ALIYAH Administration Tamsulosin HCl 0.4 mg 09/09/20 09:00 09/18/20 08:54 Tamsulosin Hcl 0.4 Mg Cap PO 0.4 mg DAILY ALIYAH Administration - Exam General Appearance: NAD, ill appearing Eye: PERRL, anicteric sclera ENT: normocephalic atraumatic, no oropharyngeal lesions Neck: supple Respiratory: CTAB, no ronchi, normal chest expansion Gastrointestinal: soft, non-tender, non-distended Musculoskeletal: generalized weakness Psychiatric: not oriented, somnolent, lethargic Hosp A/P (1) Acute respiratory failure with hypoxia Code(s): J96.01 - ACUTE RESPIRATORY FAILURE WITH HYPOXIA Status: Acute Plan: Mr. Hogan remains on a mechanical ventilator. We will defer to the pulmonary critical care team about weaning. He may ultimately need a tracheostomy. (2) Pneumonia due to 2019-nCoV Code(s): U07.1 - COVID-19; J12.89 - OTHER VIRAL PNEUMONIA Status: Acute Plan: He currently is on Levaquin and meropenem. We will hopefully titrate this off very soon. (3) Atrial fibrillation with rapid ventricular response Code(s): I48.91 - UNSPECIFIED ATRIAL FIBRILLATION Status: Acute (4) CHF exacerbation Code(s): I50.9 - HEART FAILURE, UNSPECIFIED Status: Acute (5) COPD exacerbation Code(s): J44.1 - CHRONIC OBSTRUCTIVE PULMONARY DISEASE W (ACUTE) EXACERBATION Status: Acute - Plan old records reviewed/req, PT/OT
--- NOTE | 2020-09-18 15:36 | PRG ---
DATE OF SERVICE: 09/18/2020 SUBJECTIVE: Pete Hogan remains mechanically ventilated. OBJECTIVE: VITAL SIGNS: Respiratory rates in the teens, oximetry is 97%, blood pressure 116/77. He is afebrile. LUNGS: Remarkable for coarse equal breath sounds. HEART: Regular rhythm. ABDOMEN: Soft. EXTREMITIES: Trace edema. LABORATORY DATA: White count 9.8, hemoglobin 12.4, platelets 169. Sodium 150, potassium 5, chloride 103, bicarb 37, BUN 45, creatinine 0.77. IMPRESSION: 1. Respiratory failure. 2. Recent COVID pneumonia. 3. Probable bacterial infection superimposed on top of chronic obstructive pulmonary disease. I have recommended a tracheostomy to facilitate weaning and functional recovery. I do not think we need to wait 2 plus weeks for this as based on my daily exams, he appears to be getting progressively weaker and be unlikely to handle the secretions or get any successful physical therapy without a tracheostomy. Staff is trying to determine who the point of contact is. Apparently his daughter lost her to COVID and she is a power of health care. We will await these decisions. Critical care time 30 min. Job ID: [id number] MTDD
[2020-09-18] MEDS: Atorvastatin Calcium 40 MG TAB PO SCH (20:53)
[2020-09-19] MEDS: Meropenem 2 GM, Admixture Fee 1 EACH in Sodium Chloride 0.9% 100 ML IVPB SCH ×4 (01:00→17:48)
[2020-09-19 05:09] LABS: ALT (SGPT) 98 U/L (8-55); AST (SGOT) 51 U/L (5-34); Albumin 2.5 g/dL (3.4-4.8); Alkaline Phosphatase 91 U/L (40-110); Anion Gap 13 mmol/L (10-20); BUN (Urea Nitrogen) 40 mg/dL (8.4-25.7); Bilirubin, Total 0.4 mg/dL (0.2-1.2); Calc. Creatinine Clearance 170 mL/min (70-130); Calcium 8.8 mg/dL (7.8-10.44); Carbon Dioxide 36 mmol/L (23-31); Chloride 105 mmol/L (98-107); Globulin 2.8 g/dL (2.4-3.5); Glucose 213 mg/dL (83-110); Potassium 5.1 mmol/L (3.5-5.1); Protein, Total 5.3 g/dL (5.8-8.1); Sodium 149 mmol/L (136-145)
[2020-09-19 05:17] LABS: Band 8 % (5-11); Hemoglobin 12.4 g/dL (14.0-18.0); Lymphocytes 6 % (21-51); MDiff Complete? YES; Mean Corpuscular HGB CONC 30.5 g/dL (32.0-36.0); Mean Corpuscular Hemoglobin 28.1 pg (27.0-31.0); Mean Corpuscular Volume 92.1 fL (78.0-98.0); Mean Platelet Volume 11.2 fL (7.4-10.4); Monocytes 3 % (0-10); Neutrophil 83 % (42-75); Platelet Count 173 thou/uL (130-400); RBC Distribution Width 14.2 % (11.5-14.5); Red Blood Cell (RBC) Count 4.42 mill/uL (4.70-6.10); White Blood Cell (WBC) Count 10.4 thou/uL (4.8-10.8)
[2020-09-19] MEDS: Propofol 1,000 MG/100 ML VIAL IV PRN ×3 (05:49→22:26)
[2020-09-19] MEDS: Famotidine 20 MG TAB PO SCH ×2 (09:52→22:28)
[2020-09-19] MEDS: Tamsulosin HCl 0.4 MG CAP PO SCH (09:53)
[2020-09-19] MEDS: Diltiazem HCl SR 90 mg Capsule PO SCH ×2 (09:53→22:28)
[2020-09-19] MEDS: Insulin Glargine 30 UNITS in Pre-Filled Syringe 1 EACH SC SCH ×2 (09:53→22:33)
[2020-09-19] MEDS: Carvedilol 25 MG TAB PO SCH ×2 (09:53→16:18)
[2020-09-19] MEDS: methylPREDNISolone Sod Succ 40 MG VIAL IVP SCH ×2 (09:54→22:28)
[2020-09-19] MEDS: Dextrose 5% in Water 1,000 ML IV SCH (09:56)
--- NOTE | 2020-09-19 11:15 | PDOC.HOSPP ---
- Subjective Encounter Date: 09/19/20 Encounter Time: 11:13 non-verbal Subjective: Mr. Hogan remains on the ventilator. Ongoing plans for tracheostomy and a PEG tube in the near future. Waiting on family decision regarding both. - Objective Vital Signs & Weight: Vital Signs (12 hours) Pulse Resp Pulse Ox 09/19/20 10:00 13 09/19/20 08:00 14 95 09/19/20 07:23 100 09/19/20 06:00 15 09/19/20 04:00 16 09/19/20 02:27 89 09/19/20 02:00 14 09/19/20 00:00 15 Weight Admit Weight 321 lb 3.416 oz Weight 328 lb 7.82 oz Most Recent Monitor Data Heart Rate from ECG 93 NIBP 117/75 NIBP BP-Mean 89 Respiration from ECG 13 SpO2 96 I&O: 09/18/20 09/19/20 09/20/20 06:59 06:59 06:59 Intake Total 875 1466.5 100 Output Total 2466 1555 265 Balance -1591 -88.5 -165 Result Diagrams: 09/19/20 03:45 09/19/20 03:45 Additional Labs: Accuchecks 09/19/20 09/19/20 09/18/20 10:03 05:10 23:07 POC Glucose 187 H 168 H 200 H 09/18/20 16:50 POC Glucose 211 H Radiology Reviewed by me: Yes EKG Reviewed by me: Yes Hospitalist ROS - Review of Systems ROS unobtainable: due to endotracheal tube Constitutional: reports: fever, weakness, malaise Respiratory: reports: cough, shortness of breath - Medication Medications: Active Medications Generic Name Dose Route Start Last Admin Trade Name Freq PRN Reason Stop Dose Admin Albuterol/Ipratropium 3 ml 09/10/20 10:30 09/19/20 07:22 Ipratropium/Albuterol Sulfate 3 Ml Neb NEB 3 ml [id number] ALIYAH Administration Atorvastatin Calcium 40 mg 09/08/20 21:00 09/18/20 20:53 Atorvastatin Calcium 40 Mg Tab PO 40 mg HS ALIYAH Administration Carvedilol 25 mg 09/08/20 08:00 09/19/20 09:53 Carvedilol 25 Mg Tab PO 25 mg BID-WM ALIYAH Administration Diltiazem HCl 90 mg 09/08/20 21:00 09/19/20 09:53 Diltiazem Hcl Sr 90 Mg Capsule PO 90 mg BID ALIYAH Administration Famotidine 20 mg 09/12/20 21:00 09/19/20 09:52 Famotidine 20 Mg Tab PO 20 mg BID ALIYAH Administration Meropenem 2 gm/ Miscellaneous 100 mls @ 200 mls/hr 09/09/20 17:00 09/19/20 09:53 Medication 1 each/ Sodium IVPB 100 mls Chloride 0100,0900,1700 ALIYAH Administration Norepinephrine Bitartrate 8 mg 250 mls @ 0 mls/hr 09/10/20 05:07 09/10/20 07:50 / Device IVPB 250 mls INF PRN Administration TO MAINTAIN MAP > 65 Protocol As Directed Fentanyl 100 mls @ 0 mls/hr 09/13/20 09:00 09/15/20 14:14 Fentanyl Cadd IV 10/13/20 09:00 100 mls INF ALIYAH Administration Protocol Per Protocol Insulin Glargine 30 units/ 0.3 mls @ 0.1 mls/hr 09/13/20 21:00 09/19/20 09:53 Miscellaneous Medication SC 0.3 mls BID ALIYAH Administration Levofloxacin 750 mg/ Device 150 mls @ 100 mls/hr 09/17/20 21:00 09/18/20 20:51 IVPB 150 mls Q24HR ALIYAH Administration Dextrose/Water 1,000 mls @ 50 mls/hr 09/19/20 08:15 09/19/20 09:56 D5w IV 1,000 mls .Q20H ALIYAH Administration Insulin Human Regular 0 units 09/08/20 20:03 09/18/20 17:55 Insulin Regular 300 Units/3 Ml Vial SC 6 units .AGGRESSIVE SLIDING PRN Administration Aggressive Correctional Scale Methylprednisolone Sodium Succinate 20 mg 09/16/20 21:00 09/19/20 09:54 Methylprednisolone Sod Succ 40 Mg Vial IVP 20 mg BID ALIYAH Administration Metoclopramide HCl 10 mg 09/14/20 18:50 09/15/20 11:58 Metoclopramide Hcl 10 Mg/2 Ml Vial IVP 10 mg Q6H PRN Administration Nausea/Vomiting Propofol 1,000 mg 09/09/20 07:30 09/19/20 05:49 Propofol 1,000 Mg/100 Ml Vial IV 10/09/20 07:30 1,000 mg INF PRN Administration TO ACHIEVE GOAL RASS Protocol Sodium Chloride 10 ml 09/09/20 09:00 09/19/20 09:54 Flush - Normal Saline 10 Ml Syringe IVF 10 ml Q12HR ALIYAH Administration Tamsulosin HCl 0.4 mg 09/09/20 09:00 09/19/20 09:53 Tamsulosin Hcl 0.4 Mg Cap PO 0.4 mg DAILY ALIYAH Administration - Exam General Appearance: NAD, ill appearing Eye: PERRL, anicteric sclera ENT: normocephalic atraumatic, no oropharyngeal lesions, moist mucosa Neck: supple, symmetric, no JVD Heart: RRR, no murmur, no gallops, no rubs, normal peripheral pulses Respiratory: CTAB, no wheezes, no rales, no ronchi Gastrointestinal: soft, non-tender, non-distended, normal bowel sounds Psychiatric: not oriented, somnolent, lethargic Hosp A/P (1) Acute respiratory failure with hypoxia Code(s): J96.01 - ACUTE RESPIRATORY FAILURE WITH HYPOXIA Status: Acute (2) Pneumonia due to 2019-nCoV Code(s): U07.1 - COVID-19; J12.89 - OTHER VIRAL PNEUMONIA Status: Acute (3) Atrial fibrillation with rapid ventricular response Code(s): I48.91 - UNSPECIFIED ATRIAL FIBRILLATION Status: Acute (4) CHF exacerbation Code(s): I50.9 - HEART FAILURE, UNSPECIFIED Status: Acute (5) COPD exacerbation Code(s): J44.1 - CHRONIC OBSTRUCTIVE PULMONARY DISEASE W (ACUTE) EXACERBATION Status: Acute - Plan old records reviewed/req, PT/OT, respiratory therapy, incentive spirometry Consults: Palliative Care 09/19/2020. Mr. Hogan remains intubated and mechanically ventilated. Plans in place for tracheostomy and PEG tube placement in the near future. Waiting on family decision regarding both.
[2020-09-19] MEDS: Insulin Regular 300 UNITS/3 ML VIAL SC PRN (16:18)
--- NOTE | 2020-09-19 17:05 | PRG ---
DATE OF SERVICE: 09/19/2020 SUBJECTIVE: Mr. Woodruff remains afebrile. Family had finally made a decision today to proceed with a tracheostomy and PEG placement. Since he was anticoagulated, we will have to wait for this procedure. OBJECTIVE: VITAL SIGNS: Heart rate is in the 90s, respiratory rates in the teens, FiO2 is at 40, blood pressure 90/58. LUNGS: Clear. HEART: Regular rhythm. ABDOMEN: Soft. EXTREMITIES: Without asymmetry. LABORATORY DATA: White count 10.4, hemoglobin 12.4, platelets 173. Sodium 149, potassium 5.1, chloride 105, bicarb 36, BUN 40, creatinine 0.73. IMPRESSION: 1. Chronic obstructive pulmonary disease exacerbation with bronchitis and possible pneumonia, leading to respiratory failure. 2. Extreme deconditioning secondary to COVID that he had to deal with in July. Once he has the tracheostomy, we can begin the weaning process and LTAC placement hopefully. Job ID: [id number]
[2020-09-19] MEDS: Atorvastatin Calcium 40 MG TAB PO SCH (22:29)
[2020-09-20] MEDS: Meropenem 2 GM, Admixture Fee 1 EACH in Sodium Chloride 0.9% 100 ML IVPB SCH ×3 (01:52→17:36)
[2020-09-20 05:22] LABS: ALT (SGPT) 104 U/L (8-55); AST (SGOT) 45 U/L (5-34); Albumin 2.5 g/dL (3.4-4.8); Alkaline Phosphatase 90 U/L (40-110); Anion Gap 10 mmol/L (10-20); BUN (Urea Nitrogen) 36 mg/dL (8.4-25.7); Bilirubin, Total 0.3 mg/dL (0.2-1.2); Calc. Creatinine Clearance 177 mL/min (70-130); Calcium 8.8 mg/dL (7.8-10.44); Carbon Dioxide 37 mmol/L (23-31); Chloride 104 mmol/L (98-107); Globulin 2.7 g/dL (2.4-3.5); Glucose 237 mg/dL (83-110); Potassium 5.2 mmol/L (3.5-5.1); Protein, Total 5.2 g/dL (5.8-8.1); Sodium 146 mmol/L (136-145)
[2020-09-20] MEDS: Dextrose 5% in Water 1,000 ML IV SCH ×2 (05:33→20:58)
[2020-09-20] MEDS: Propofol 1,000 MG/100 ML VIAL IV PRN (05:35)
[2020-09-20 06:04] LABS: Band 9 % (5-11); Hemoglobin 12.4 g/dL (14.0-18.0); Lymphocytes 7 % (21-51); MDiff Complete? YES; Mean Corpuscular HGB CONC 30.8 g/dL (32.0-36.0); Mean Corpuscular Hemoglobin 28.5 pg (27.0-31.0); Mean Corpuscular Volume 92.5 fL (78.0-98.0); Mean Platelet Volume 11.6 fL (7.4-10.4); Monocytes 4 % (0-10); Neutrophil 80 % (42-75); Nucleated RBC 1 % (0); Platelet Count 173 thou/uL (130-400); Red Blood Cell (RBC) Count 4.37 mill/uL (4.70-6.10); White Blood Cell (WBC) Count 11.8 thou/uL (4.8-10.8)
[2020-09-20] MEDS ORDERED: Lidocaine 2% w/Epinephrine 1:200K 20 ML VIAL ONE (07:01)
[2020-09-20] MEDS ORDERED: Bupivacaine PF 0.5% 30 ML VIAL ONE (07:01)
[2020-09-20] MEDS ORDERED: Midazolam HCl 2 mg/2 ml Vial ONE (07:06)
[2020-09-20] MEDS ORDERED: Rocuronium Bromide 50 MG/5 ML VIAL ONE (07:06)
[2020-09-20] MEDS: Carvedilol 25 MG TAB PO SCH ×2 (07:10→17:11)
--- NOTE | 2020-09-20 08:41 | CON ---
DATE OF CONSULTATION: HISTORY OF PRESENT ILLNESS: 80-year-old male patient had COVID in July and presented to the hospital on 09/08/2020, admitted by hospitalist, seen by Dr. Mccormack for dyspnea, history of atrial fibrillation, coronary artery disease, CHF, hypertension, COPD, diabetes. He is found to be in atrial fibrillation, RVR, acute respiratory failure with hypoxia, pneumonia secondary to COVID, sepsis, sacral decubitus ulcer, deconditioning, history of KAILEY, ventilator dependent. Now, I have been asked to see him regarding placement of tracheostomy tube, PEG tube this morning. Family has consented. ALLERGIES: PENICILLIN. PAST MEDICAL HISTORY: Sleep apnea, obesity, COPD, atrial fibrillation, cardiomyopathy, diastolic/systolic dysfunction, diabetes, hypertension. SOCIAL HISTORY: Patient currently is a nonsmoker and drinks infrequently. FAMILY HISTORY: Not possible as he is intubated and sedated. REVIEW OF SYSTEMS: Not possible as he is intubated and sedated. PHYSICAL EXAMINATION: VITAL SIGNS: Height 6 feet, blood pressure 120/89, heart rate 89. LUNGS: Clear to auscultation. CARDIAC: Regular rate and rhythm without murmur or gallop. ABDOMEN: Soft. No scars. EXTREMITIES: Minimal edema. LABORATORY DATA: White count 11, hemoglobin 12. Basic metabolic profile normal with BUN 36, creatinine 0.7, sodium 146. ASSESSMENT AND PLAN: 1. Respiratory failure, chronic obstructive pulmonary disease, coronavirus disease pneumonia. Plan, tracheostomy. 2. Malnutrition, dysphagia. Plan, PEG tube. 3. Other medical problems as noted above. Job ID: [id number]
[2020-09-20] MEDS ORDERED: Rocuronium Bromide 10 MG/ML (10ML VIAL) ONE (08:48)
--- NOTE | 2020-09-20 09:22 | OP ---
DATE OF PROCEDURE: 09/20/2020 PREOPERATIVE DIAGNOSES: 1. Respiratory failure. 2. COVID pneumonia. 3. Malnutrition. 4. Dysphagia. 5. Obesity. POSTOPERATIVE DIAGNOSES: 1. Respiratory failure. 2. COVID pneumonia. 3. Malnutrition. 4. Dysphagia. 5. Obesity. PROCEDURES PERFORMED: 1. #8 Shiley low-pressure cuffed tracheostomy tube. 2. Percutaneous endoscopic gastrostomy tube. ANESTHESIA: General, local with 0.5% Marcaine 30 mL, mixed with 1% Xylocaine with epinephrine 20 mL. DESCRIPTION OF PROCEDURE: The patient was taken to the operating room where under general anesthesia, neck, chest, and abdomen were prepared with ChloraPrep and draped in routine fashion. An incision was made in the anterior neck inferiorly above the manubrium, carried down to skin and platysma, dividing anterior jugular veins between 3-0 silk ties and dividing the isthmus of the thyroid, identifying the trachea below the cricoid using a tracheal hook. Good hemostasis was obtained with the cautery. Bilateral anterior lateral strap sutures with 3-0 Prolene placed and knots tied. Anterior tracheal window excised over 2 cartilaginous rings below the cricoid, visualizing the tracheal tube, withdrawn and inserting the #8 Shiley low-pressure cuffed tracheostomy directly into the trachea, inflating the balloon, connected to the ventilator. Jayashree placed in the soft tissues beneath the skin and good hemostasis was noted. Skin approximated on either side with 3-0 Prolene and secured to the tracheostomy appliance with 3-0 Prolene and the securing straps applied to the tracheostomy tube. The patient tolerated the procedure well. Endoscope was placed per os under direct visualization, which was passed throughout the esophagus and the stomach, noting normal esophagus and stomach visualized. The stomach insufflated and good indentation noted in the left subxiphoid and prepped with ChloraPrep. A stab incision made. Trocar catheter induced percutaneously into the gastric lumen, visualized endoscopically, grasping the wire, introduced through the trocar catheter where a snare placed through the endoscope and removing the endoscope and wire out the mouth. Wire connected to the feeding tube lubricated, pulled back down into the stomach lumen, fixating against the abdominal wall with a fixation device and feeding device. The patient tolerated the procedure well. Job ID: [id number]
[2020-09-20] MEDS: Tamsulosin HCl 0.4 MG CAP PO SCH (09:41)
[2020-09-20] MEDS: Famotidine 20 MG TAB PO SCH ×2 (09:41→20:59)
[2020-09-20] MEDS: methylPREDNISolone Sod Succ 40 MG VIAL IVP SCH ×2 (09:41→20:58)
[2020-09-20] MEDS: Insulin Glargine 30 UNITS in Pre-Filled Syringe 1 EACH SC SCH ×2 (09:41→21:37)
[2020-09-20] MEDS: Diltiazem HCl SR 90 mg Capsule PO SCH ×2 (09:42→20:59)
[2020-09-20] MEDS: Insulin Regular 300 UNITS/3 ML VIAL SC PRN ×3 (09:42→21:37)
--- NOTE | 2020-09-20 10:24 | PRG ---
DATE OF SERVICE: 09/20/2020 SUBJECTIVE: The patient underwent tracheostomy earlier today. He is back on mechanical ventilation. Looks comfortable. OBJECTIVE: VITAL SIGNS: Temperature 96.4, O2 saturation 93%, pulse 95, blood pressure 167/85. HEENT: Unremarkable. NECK: Trach in good position. LUNGS: Clear. CARDIAC: S1 and S2. Regular. ABDOMEN: Soft and obese. EXTREMITIES: Edematous. LABORATORY DATA: White blood cell count 11.8, hematocrit 40 and platelet count 173. Sodium 146, potassium 5.2, chloride 104, CO2 37, BUN 36, creatinine 0.7, glucose 237. ASSESSMENT: 1. Chronic obstructive pulmonary disease with exacerbation. 2. Pneumonia. 3. Respiratory failure. 4. Deconditioning due to COVID. PLAN: 1. Slow wean from mechanical ventilation. 2. Continue antibiotics 7 days. 3. Case management referral for LTAC placement. Job ID: [id number]
--- NOTE | 2020-09-20 14:05 | PDOC.HOSPP ---
- Subjective Encounter Date: 09/20/20 Encounter Time: 14:04 non-verbal Subjective: Patient seen and evaluated today at the bedside. No family at the bedside. He underwent tracheostomy and a PEG tube placement today. We will begin the process of discharge planning. He will likely be an LTAC candidate. - Objective Vital Signs & Weight: Vital Signs (12 hours) Temp Pulse Resp BP Pulse Ox 09/20/20 14:00 17 09/20/20 12:00 14 09/20/20 11:25 95 09/20/20 10:38 99 142/93 H 09/20/20 10:00 17 09/20/20 08:00 16 09/20/20 07:46 16 95 09/20/20 07:00 98.1 F 09/20/20 06:00 15 09/20/20 04:00 16 09/20/20 02:06 95 Weight Admit Weight 321 lb 3.416 oz Weight 5.326 oz Most Recent Monitor Data Heart Rate from ECG 93 NIBP 123/83 NIBP BP-Mean 96 Respiration from ECG 17 SpO2 97 I&O: 09/19/20 09/20/20 09/21/20 06:59 06:59 06:59 Intake Total 1466.5 1347 271 Output Total 1555 1760 410 Balance -88.5 -413 -139 Result Diagrams: 09/20/20 03:25 09/20/20 03:25 Additional Labs: Accuchecks 09/20/20 09/19/20 09/19/20 09:40 23:02 16:08 POC Glucose 197 H 222 H 210 H Radiology Reviewed by me: Yes EKG Reviewed by me: Yes Hospitalist ROS - Review of Systems ROS unobtainable: due to mental status Constitutional: reports: weakness Neurological: reports: weakness All other systems reviewed; all pertinent +/- noted in HPI/Subj - Medication Medications: Active Medications Generic Name Dose Route Start Last Admin Trade Name Freq PRN Reason Stop Dose Admin Albuterol/Ipratropium 3 ml 09/10/20 10:30 09/20/20 10:38 Ipratropium/Albuterol Sulfate 3 Ml Neb NEB 3 ml [id number] ALIYAH Administration Atorvastatin Calcium 40 mg 09/08/20 21:00 09/19/20 22:29 Atorvastatin Calcium 40 Mg Tab PO 40 mg HS ALIYAH Administration Carvedilol 25 mg 09/08/20 08:00 09/20/20 07:10 Carvedilol 25 Mg Tab PO 25 mg BID-WM ALIYAH Administration Diltiazem HCl 90 mg 09/08/20 21:00 09/20/20 09:42 Diltiazem Hcl Sr 90 Mg Capsule PO 90 mg BID ALIYAH Administration Famotidine 20 mg 09/12/20 21:00 09/20/20 09:41 Famotidine 20 Mg Tab PO 20 mg BID ALIYAH Administration Norepinephrine Bitartrate 8 mg 250 mls @ 0 mls/hr 09/10/20 05:07 09/10/20 07:50 / Device IVPB 250 mls INF PRN Administration TO MAINTAIN MAP > 65 Protocol As Directed Fentanyl 100 mls @ 0 mls/hr 09/13/20 09:00 09/15/20 14:14 Fentanyl Cadd IV 10/13/20 09:00 100 mls INF ALIYAH Administration Protocol Per Protocol Insulin Glargine 30 units/ 0.3 mls @ 0.1 mls/hr 09/13/20 21:00 09/20/20 09:41 Miscellaneous Medication SC 0.3 mls BID ALIYAH Administration Levofloxacin 750 mg/ Device 150 mls @ 100 mls/hr 09/17/20 21:00 09/19/20 22:27 IVPB 150 mls Q24HR ALIYAH Administration Dextrose/Water 1,000 mls @ 50 mls/hr 09/19/20 08:15 09/20/20 05:33 D5w IV 1,000 mls .Q20H ALIYAH Administration Meropenem 2 gm/ Miscellaneous 100 mls @ 200 mls/hr 09/19/20 17:00 09/20/20 07:05 Medication 1 each/ Sodium IVPB 100 mls Chloride 0100,0900,1700 ALIYAH Administration Insulin Human Regular 0 units 09/08/20 20:03 09/20/20 09:42 Insulin Regular 300 Units/3 Ml Vial SC 3 units .AGGRESSIVE SLIDING PRN Administration Aggressive Correctional Scale Methylprednisolone Sodium Succinate 20 mg 09/16/20 21:00 09/20/20 09:41 Methylprednisolone Sod Succ 40 Mg Vial IVP 20 mg BID ALIYAH Administration Metoclopramide HCl 10 mg 09/14/20 18:50 09/15/20 11:58 Metoclopramide Hcl 10 Mg/2 Ml Vial IVP 10 mg Q6H PRN Administration Nausea/Vomiting Propofol 1,000 mg 09/09/20 07:30 09/20/20 05:35 Propofol 1,000 Mg/100 Ml Vial IV 10/09/20 07:30 1,000 mg INF PRN Administration TO ACHIEVE GOAL RASS Protocol Sodium Chloride 10 ml 09/09/20 09:00 09/20/20 09:42 Flush - Normal Saline 10 Ml Syringe IVF 10 ml Q12HR ALIYAH Administration Tamsulosin HCl 0.4 mg 09/09/20 09:00 09/20/20 09:41 Tamsulosin Hcl 0.4 Mg Cap PO 0.4 mg DAILY ALIYAH Administration - Exam General Appearance: NAD, ill appearing Eye: PERRL ENT: normocephalic atraumatic, no oropharyngeal lesions Neck: supple, symmetric, no JVD, no thyromegaly, no lymphadenopathy Heart: RRR, no murmur, no gallops, no rubs, normal peripheral pulses Respiratory: CTAB, no wheezes, no rales, no ronchi Gastrointestinal: soft, non-tender, non-distended, normal bowel sounds Musculoskeletal: generalized weakness Psychiatric: not oriented, somnolent, lethargic Hosp A/P (1) Acute respiratory failure with hypoxia Code(s): J96.01 - ACUTE RESPIRATORY FAILURE WITH HYPOXIA Status: Acute (2) Pneumonia due to 2019-nCoV Code(s): U07.1 - COVID-19; J12.89 - OTHER VIRAL PNEUMONIA Status: Acute (3) Atrial fibrillation with rapid ventricular response Code(s): I48.91 - UNSPECIFIED ATRIAL FIBRILLATION Status: Acute (4) CHF exacerbation Code(s): I50.9 - HEART FAILURE, UNSPECIFIED Status: Acute (5) COPD exacerbation Code(s): J44.1 - CHRONIC OBSTRUCTIVE PULMONARY DISEASE W (ACUTE) EXACERBATION Status: Acute - Plan 09/19/2020. Mr. Hogan remains intubated and mechanically ventilated. Plans in place for tracheostomy and PEG tube placement in the near future. Waiting on family decision regarding both. 09/20/2020. Patient underwent tracheostomy and a PEG tube placement today. We will begin the process of discharge planning. He will likely be an LTAC candidate. We will continue supportive care as above.
[2020-09-20] MEDS: Atorvastatin Calcium 40 MG TAB PO SCH (20:59)
[2020-09-21] MEDS: Meropenem 2 GM, Admixture Fee 1 EACH in Sodium Chloride 0.9% 100 ML IVPB SCH ×3 (01:06→17:52)
[2020-09-21] MEDS: Insulin Regular 300 UNITS/3 ML VIAL SC PRN ×4 (04:53→20:46)
[2020-09-21 05:07] LABS: ALT (SGPT) 75 U/L (8-55); AST (SGOT) 27 U/L (5-34); Albumin 2.4 g/dL (3.4-4.8); Alkaline Phosphatase 86 U/L (40-110); Anion Gap 11 mmol/L (10-20); BUN (Urea Nitrogen) 35 mg/dL (8.4-25.7); Bilirubin, Total 0.3 mg/dL (0.2-1.2); Calc. Creatinine Clearance 0 mL/min (70-130); Calcium 8.6 mg/dL (7.8-10.44); Carbon Dioxide 33 mmol/L (23-31); Chloride 102 mmol/L (98-107); Globulin 2.6 g/dL (2.4-3.5); Glucose 273 mg/dL (83-110); Potassium 4.4 mmol/L (3.5-5.1); Sodium 142 mmol/L (136-145)
[2020-09-21 05:12] LABS: Band 4 % (5-11); Hemoglobin 12.3 g/dL (14.0-18.0); Hypochromia SLIGHT = 6-15 cells (100X) (0-5/hpf); Lymphocytes 7 % (21-51); MDiff Complete? YES; Mean Corpuscular HGB CONC 31.4 g/dL (32.0-36.0); Mean Corpuscular Hemoglobin 28.9 pg (27.0-31.0); Mean Corpuscular Volume 92.1 fL (78.0-98.0); Mean Platelet Volume 11.8 fL (7.4-10.4); Monocytes 8 % (0-10); Neutrophil 81 % (42-75); Platelet Count 171 thou/uL (130-400); Platelet Morphology Comment Appears Adequate; RBC Distribution Width 14.2 % (11.5-14.5); Red Blood Cell (RBC) Count 4.26 mill/uL (4.70-6.10)
--- NOTE | 2020-09-21 09:19 | PRG ---
DATE OF SERVICE: 09/21/2020 The patient is doing well after tracheostomy and PEG tube. Tracheostomy site is clean and dry. Abdomen is soft and nontender. He is tolerating his tube feedings. At this point, I will see him as needed. Please call if necessary. Job ID: [id number]
[2020-09-21] MEDS: Insulin Glargine 30 UNITS in Pre-Filled Syringe 1 EACH SC SCH ×2 (09:21→20:46)
[2020-09-21] MEDS: Tamsulosin HCl 0.4 MG CAP PO SCH (09:21)
[2020-09-21] MEDS: Famotidine 20 MG TAB PO SCH ×2 (09:21→20:00)
[2020-09-21] MEDS: Carvedilol 25 MG TAB PO SCH ×2 (09:21→17:13)
[2020-09-21] MEDS: Diltiazem HCl SR 90 mg Capsule PO SCH ×2 (09:22→20:01)
[2020-09-21] MEDS: methylPREDNISolone Sod Succ 40 MG VIAL IVP SCH ×2 (09:22→20:02)
[2020-09-21] MEDS: Diltiazem 125 MG in Sodium Chloride 0.9% 100 ML IVPB SCH ×2 (11:26→22:52)
--- NOTE | 2020-09-21 13:01 | PDOC.HOSPP ---
- Subjective Encounter Date: 09/21/20 Encounter Time: 13:05 non-verbal Subjective: Mr. Hogan was seen and evaluated today. He does have a trach and a PEG in place. He seems to follow commands and was able to squeeze my hands on command. Will defer to the pulmonary critical care about further weaning. He will likely be a candidate for long-term acute care placement. - Objective Vital Signs & Weight: Vital Signs (12 hours) Pulse Resp Pulse Ox 09/21/20 12:00 94 L 09/21/20 10:56 118 H 29 H 94 L 09/21/20 10:00 23 H 09/21/20 07:58 16 96 09/21/20 07:16 104 H 09/21/20 06:00 17 09/21/20 05:00 16 09/21/20 04:00 14 09/21/20 02:14 112 H 09/21/20 02:00 19 Weight Admit Weight 321 lb 3.416 oz Weight 334 lb 7.06 oz Most Recent Monitor Data Heart Rate from ECG 111 NIBP 144/89 NIBP BP-Mean 107 Respiration from ECG 24 SpO2 93 I&O: 09/20/20 09/21/20 09/22/20 06:59 06:59 06:59 Intake Total 1347 2977 340 Output Total 1760 1490 160 Balance -413 1487 180 Result Diagrams: 09/21/20 03:40 09/21/20 03:30 Additional Labs: Accuchecks 09/21/20 09/21/20 09/20/20 09:23 04:32 21:33 POC Glucose 253 H 233 H 248 H 09/20/20 16:45 POC Glucose 251 H Radiology Reviewed by me: Yes EKG Reviewed by me: Yes Hospitalist ROS - Review of Systems ROS unobtainable: due to mental status Constitutional: reports: weakness Neurological: reports: weakness - Medication Medications: Active Medications Generic Name Dose Route Start Last Admin Trade Name Freq PRN Reason Stop Dose Admin Albuterol/Ipratropium 3 ml 09/10/20 10:30 09/21/20 10:56 Ipratropium/Albuterol Sulfate 3 Ml Neb NEB 3 ml [id number] ALIYAH Administration Atorvastatin Calcium 40 mg 09/08/20 21:00 09/20/20 20:59 Atorvastatin Calcium 40 Mg Tab PO 40 mg HS ALIYAH Administration Carvedilol 25 mg 09/08/20 08:00 09/21/20 09:21 Carvedilol 25 Mg Tab PO 25 mg BID-WM ALIYAH Administration Diltiazem HCl 90 mg 09/08/20 21:00 09/21/20 09:22 Diltiazem Hcl Sr 90 Mg Capsule PO 90 mg BID ALIYAH Administration Famotidine 20 mg 09/12/20 21:00 09/21/20 09:21 Famotidine 20 Mg Tab PO 20 mg BID ALIYAH Administration Norepinephrine Bitartrate 8 mg 250 mls @ 0 mls/hr 09/10/20 05:07 09/10/20 07:50 / Device IVPB 250 mls INF PRN Administration TO MAINTAIN MAP > 65 Protocol As Directed Fentanyl 100 mls @ 0 mls/hr 09/13/20 09:00 09/15/20 14:14 Fentanyl Cadd IV 10/13/20 09:00 100 mls INF ALIYAH Administration Protocol Per Protocol Insulin Glargine 30 units/ 0.3 mls @ 0.1 mls/hr 09/13/20 21:00 09/21/20 09:21 Miscellaneous Medication SC 0.3 mls BID ALIYAH Administration Levofloxacin 750 mg/ Device 150 mls @ 100 mls/hr 09/17/20 21:00 09/20/20 20:58 IVPB 150 mls Q24HR ALIYAH Administration Dextrose/Water 1,000 mls @ 50 mls/hr 09/19/20 08:15 09/20/20 20:58 D5w IV 1,000 mls .Q20H ALIYAH Administration Meropenem 2 gm/ Miscellaneous 100 mls @ 200 mls/hr 09/19/20 17:00 09/21/20 09:21 Medication 1 each/ Sodium IVPB 100 mls Chloride 0100,0900,1700 ALIYAH Administration Diltiazem HCl 125 mg/ Sodium 125 mls @ 10 mls/hr 09/21/20 10:30 09/21/20 11:26 Chloride IVPB 125 mls INF ALIYAH Administration Protocol 10 MG/HR Insulin Human Regular 0 units 09/08/20 20:03 09/21/20 09:24 Insulin Regular 300 Units/3 Ml Vial SC 9 units .AGGRESSIVE SLIDING PRN Administration Aggressive Correctional Scale Methylprednisolone Sodium Succinate 20 mg 09/16/20 21:00 09/21/20 09:22 Methylprednisolone Sod Succ 40 Mg Vial IVP 20 mg BID ALIYAH Administration Metoclopramide HCl 10 mg 09/14/20 18:50 09/15/20 11:58 Metoclopramide Hcl 10 Mg/2 Ml Vial IVP 10 mg Q6H PRN Administration Nausea/Vomiting Propofol 1,000 mg 09/09/20 07:30 09/20/20 05:35 Propofol 1,000 Mg/100 Ml Vial IV 10/09/20 07:30 1,000 mg INF PRN Administration TO ACHIEVE GOAL RASS Protocol Sodium Chloride 10 ml 09/09/20 09:00 09/21/20 09:22 Flush - Normal Saline 10 Ml Syringe IVF 10 ml Q12HR ALIYAH Administration Tamsulosin HCl 0.4 mg 09/09/20 09:00 09/21/20 09:21 Tamsulosin Hcl 0.4 Mg Cap PO 0.4 mg DAILY ALIYAH Administration - Exam General Appearance: NAD, ill appearing Eye: PERRL, anicteric sclera ENT: normocephalic atraumatic, no oropharyngeal lesions Neck: supple, symmetric, no JVD, no thyromegaly Heart: RRR, no murmur, no gallops, no rubs, normal peripheral pulses Respiratory: CTAB, no wheezes, no rales, no ronchi, normal chest expansion Gastrointestinal: soft, non-tender, non-distended, normal bowel sounds, no palpable masses Neurological: cranial nerve grossly intact Psychiatric: not oriented, somnolent, lethargic Hosp A/P (1) Acute respiratory failure with hypoxia Code(s): J96.01 - ACUTE RESPIRATORY FAILURE WITH HYPOXIA Status: Acute (2) Pneumonia due to 2019-nCoV Code(s): U07.1 - COVID-19; J12.89 - OTHER VIRAL PNEUMONIA Status: Acute (3) Atrial fibrillation with rapid ventricular response Code(s): I48.91 - UNSPECIFIED ATRIAL FIBRILLATION Status: Acute (4) CHF exacerbation Code(s): I50.9 - HEART FAILURE, UNSPECIFIED Status: Acute (5) COPD exacerbation Code(s): J44.1 - CHRONIC OBSTRUCTIVE PULMONARY DISEASE W (ACUTE) EXACERBATION Status: Acute - Plan plan discussed w/ family, PT/OT, respiratory therapy, incentive spirometry 09/19/2020. Mr. Hogan remains intubated and mechanically ventilated. Plans in place for tracheostomy and PEG tube placement in the near future. Waiting on family decision regarding both. 09/20/2020. Patient underwent tracheostomy and a PEG tube placement today. We will begin the process of discharge planning. He will likely be an LTAC candidate. We will continue supportive care as above. 09/21/2020. Mr. Hogan appears to be following commands. He was able to squeeze my hands on verbal command. We will continue to wean him down. He will likely be an LTAC candidate. He remains on Levaquin and meropenem. I will likely discontinue Levaquin here in the next 24 hours.
--- NOTE | 2020-09-21 17:30 | PRG ---
DATE OF SERVICE: 09/21/2020 SUBJECTIVE: Mr. Hogan is interactive. It was explained to him why he had a tracheostomy. He nodded that he understood. OBJECTIVE: VITAL SIGNS: Heart rates in the 90s, blood pressure is 112/74, respiratory rates in the teens, oximetry is 90%. More aggressively begin the process of T collar trials. LUNGS: Clear. HEART: Regular rate and rhythm. ABDOMEN: Soft. EXTREMITIES: Without asymmetry and with chronic stasis changes. LABORATORY DATA: White count 13, hemoglobin is 12.3, platelets 171. Sodium 142, potassium 4.4, chloride 102, bicarb 33, BUN 35, creatinine 0.69. IMPRESSION: 1. Acute on chronic respiratory failure with hypoxemia. 2. Chronic obstructive pulmonary disease exacerbation. 3. Bronchitis plus or minus pneumonia. 4. COVID-19. 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 6. Status post tracheostomy and PEG placement. 7. Acute on chronic kidney disease. It is stable. Creatinine on admission was 1.96. It is now 0.69. 8. Diabetes. PLAN: Continue increasing T collar trials with placement in long-term acute care hospital. Overall, he appears to be doing a little better than I expected at this point. Job ID: [id number]
[2020-09-21] MEDS: Dextrose 5% in Water 1,000 ML IV SCH (17:47)
[2020-09-21] MEDS: Atorvastatin Calcium 40 MG TAB PO SCH (20:00)
[2020-09-22] MEDS: Meropenem 2 GM, Admixture Fee 1 EACH in Sodium Chloride 0.9% 100 ML IVPB SCH ×3 (01:33→17:24)
[2020-09-22] MEDS: Metoclopramide HCl 10 MG/2 ML VIAL IVP PRN (03:14)
[2020-09-22 04:42] LABS: ALT (SGPT) 83 U/L (8-55); AST (SGOT) 35 U/L (5-34); Albumin 2.6 g/dL (3.4-4.8); Alkaline Phosphatase 94 U/L (40-110); Anion Gap 13 mmol/L (10-20); BUN (Urea Nitrogen) 36 mg/dL (8.4-25.7); Bilirubin, Total 0.4 mg/dL (0.2-1.2); Calc. Creatinine Clearance 181 mL/min (70-130); Calcium 8.8 mg/dL (7.8-10.44); Carbon Dioxide 32 mmol/L (23-31); Chloride 101 mmol/L (98-107); Globulin 2.9 g/dL (2.4-3.5); Glucose 255 mg/dL (83-110); Potassium 4.2 mmol/L (3.5-5.1); Protein, Total 5.5 g/dL (5.8-8.1); Sodium 142 mmol/L (136-145)
[2020-09-22] MEDS: Insulin Regular 300 UNITS/3 ML VIAL SC PRN ×2 (05:09→10:26)
[2020-09-22 05:20] LABS: Lymphocytes 8 % (21-51); MDiff Complete? YES; Mean Corpuscular HGB CONC 31.3 g/dL (32.0-36.0); Mean Corpuscular Hemoglobin 28.5 pg (27.0-31.0); Mean Corpuscular Volume 91.1 fL (78.0-98.0); Mean Platelet Volume 11.9 fL (7.4-10.4); Metamyelocyte 1 % (0-0); Monocytes 3 % (0-10); Neutrophil 88 % (42-75); Platelet Count 190 thou/uL (130-400); Platelet Morphology Comment Appears Adequate; RBC Distribution Width 14.1 % (11.5-14.5); RBC Morphology Normal; Red Blood Cell (RBC) Count 4.56 mill/uL (4.70-6.10); White Blood Cell (WBC) Count 17.1 thou/uL (4.8-10.8)
[2020-09-22] MEDS: methylPREDNISolone Sod Succ 40 MG VIAL IVP SCH ×2 (09:55→20:42)
[2020-09-22] MEDS: Insulin Glargine 30 UNITS in Pre-Filled Syringe 1 EACH SC SCH ×2 (09:55→21:21)
[2020-09-22] MEDS: Famotidine 20 MG TAB PO SCH ×2 (09:55→20:42)
[2020-09-22] MEDS: Tamsulosin HCl 0.4 MG CAP PO SCH (09:55)
[2020-09-22] MEDS: Diltiazem HCl SR 90 mg Capsule PO SCH ×2 (09:55→20:42)
[2020-09-22] MEDS: Carvedilol 25 MG TAB PO SCH ×2 (09:55→17:13)
[2020-09-22] MEDS: Diltiazem 125 MG in Sodium Chloride 0.9% 100 ML IVPB SCH ×2 (12:00→23:26)
--- NOTE | 2020-09-22 12:57 | PDOC.DS.DS ---
Provider - Provider Date of Admission: 09/08/20 20:00 Date of Discharge: 09/22/20 Admitting Provider: Fabricio Brgigs MD Consultations: General Surgery (Dr. Cerda), Pulmonary (Dr. Mccormack) Primary Care Physician: ROBERTO ROMAN Course - Hospital Course Hospital Course: Discharge diagnosis: 1. Acute hypoxic respiratory failure 2. COVID-19 pneumonia 3. Atrial fibrillation with rapid ventricular response 4. 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 Hypernatremia 6. Hyperkalemia 7. Acute renal failure 8. Hypoalbuminemia 9. Sepsis Hospital course: Patient is a pleasant 80-year-old gentleman who was admitted to the hospital on September 08, 2020 for acute hypoxic respiratory failure secondary to COVID-19 pneumonia. He was initially treated with BiPAP. He was seen by pulmonary and critical care patient received steroids and antibiotics. He was subsequently intubated and mechanically ventilated. 2D echocardiogram showed left ventricle ejection fraction of 50 to 55%. Diastolic function was indeterminate due to atrial fibrillation. On September 20 he underwent tracheostomy and PEG tube placement by general surgery service. He is being discharged to LTAC for furthe r management. Many thanks for allowing me to participate in your patient's care. Please feel free to contact me with any questions or concerns. Discharge destination: LTAC Total amount of time spent coordinating this discharge: 33 minutes Resuscitation Status: 09/08/20 20:11 Resuscitation Status Routine Resuscitation Status: FULL: Full Resuscitation - Labs Lab Results: 09/22/20 03:25 09/22/20 03:25 Abnormal Lab Results - Last 48 hrs 09/21/20 03:30: Carbon Dioxide 33 H, BUN 35 H, Creatinine 0.69 L, ALT 75 H, Serum Total Protein 5.0 L, Albumin 2.4 L, Albumin/Globulin Ratio 0.9 L 09/21/20 03:40: WBC 13.0 H, RBC 4.26 L, Hgb 12.3 L, Hct 39.2 L, MCHC 31.4 L, MPV 11.8 H, Neutrophils % (Manual) 81 H, Band Neuts % (Manual) 4 L, Lymphocytes % (Manual) 7 L 09/22/20 03:25: WBC 17.1 H, RBC 4.56 L, Hgb 13.0 L, Hct 41.6 L, MCHC 31.3 L, MPV 11.9 H, Neutrophils % (Manual) 88 H, Lymphocytes % (Manual) 8 L 09/22/20 03:25: Carbon Dioxide 32 H, BUN 36 H, AST 35 H, ALT 83 H, Serum Total Protein 5.5 L, Albumin 2.6 L, Albumin/Globulin Ratio 0.9 L Microbiology - Entire Visit 09/16/20 07:46 Sputum Respiratory Culture - Final Marisel albicans - Physical Exam Vitals: Vital Signs (12 hours) Temp Pulse Resp BP Pulse Ox 09/22/20 12:00 99.3 F 24 H 09/22/20 11:37 90 09/22/20 10:00 28 H 09/22/20 08:00 27 H 95 09/22/20 07:14 108 H 09/22/20 06:00 28 H 09/22/20 05:12 97 178/105 H 09/22/20 05:00 30 H 09/22/20 04:00 34 H 09/22/20 02:25 97 09/22/20 02:00 18 Weight Admit Weight 321 lb 3.416 oz Weight 336 lb 13.861 oz Most Recent Monitor Data Heart Rate from ECG 95 NIBP 105/64 NIBP BP-Mean 77 Respiration from ECG 25 SpO2 99 Physical Exam: The patient was seen and examined on the day of discharge. Plan - Discharge Medications Home Medications: Medication Instructions Recorded Confirmed Type Allopurinol 100 mg PO DAILY 09/15/19 08/27/20 History Omeprazole 20 mg PO DAILY 09/15/19 08/27/20 History Tamsulosin HCl 0.4 mg PO DAILY 09/15/19 08/27/20 History Apixaban [Eliquis] 5 mg PO BID 60 Days #60 tab 10/11/19 08/27/20 Rx Atorvastatin Calcium [Lipitor] 40 mg PO HS 30 Days #30 tab 10/11/19 08/27/20 Rx Carvedilol [Coreg] 25 mg PO BID-WM 30 Days #30 tab 10/12/19 08/27/20 Rx Amlodipine [Norvasc] 10 mg PO DAILY #30 tab 11/07/19 08/27/20 Rx Acetaminophen [Tylenol Regular 650 mg PO Q4H PRN tab 12/01/19 08/27/20 Rx Strength] Ascorbic Acid [Vitamin C] 1,000 mg PO DAILY tab 08/23/20 08/27/20 Rx Benzonatate [Tessalon] 100 mg PO Q6H PRN #30 cap 08/23/20 08/27/20 Rx Cepastat Lozenges 1 heriberto PO Q2H PRN heriberto 08/23/20 08/27/20 Rx Azithromycin 250 mg PO DAILY #4 tablet 09/03/20 Rx Diltiazem HCl [Cardizem SR] 90 mg PO BID #60 cap 09/03/20 Rx Insulin Glargine [Lantus Vial] 28 units SC BID #1 vial 09/03/20 Rx Linezolid 600 mg PO Q12H #12 tablet 09/03/20 Rx Allergies: Penicillins Allergy (Verified 08/27/20 22:17) - Follow up Plan Referrals: ROBERTO ROMAN [Primary Care Provider] - 14 Days Disposition: HOME Quality - Care Measures CORE MEASURES:: N/A
--- NOTE | 2020-09-22 16:31 | PRG ---
DATE OF SERVICE: 09/22/2020 SUBJECTIVE: Pete Hogan will awaken and make eye contact and nod to questions. Remains mechanically ventilated. Some problems with high residuals. His tube feeds are on hold now as a result of this. OBJECTIVE: VITAL SIGNS: Heart rate is 90, FiO2 is 35, blood pressure is 111/66, respiratory rate is 20, and oximetry is in the mid 90s. LUNGS: Remarkable for equal breath sounds. HEART: Regular rhythm. ABDOMEN: Soft. EXTREMITIES: Without asymmetry or edema. DIAGNOSTIC STUDIES: White count 17.1, hemoglobin 13.0, platelets 190. Sodium 142, potassium 4.2, chloride 101, bicarb 32, BUN 36, creatinine 0.7. IMPRESSION: 1. Chronic obstructive pulmonary disease exacerbation with respiratory failure. 2. Status post tracheostomy and PEG. 3. History of COVID in July. To be clear, he does not have COVID pneumonia at this admission. He is stable for transfer to long-term acute care whenever a bed becomes available. We will continue with slow attempts of the weaning process while he is here. Job ID: [id number]
--- NOTE | 2020-09-22 17:10 | PDOC.HOSPP ---
- Subjective Encounter Date: 09/22/20 Encounter Time: 10:00 Subjective: Patient seen for follow-up for pneumonia. Post tracheostomy - Objective Vital Signs & Weight: Vital Signs (12 hours) Temp Pulse Resp BP Pulse Ox 09/22/20 15:23 90 09/22/20 14:00 25 H 09/22/20 12:00 99.3 F 24 H 09/22/20 11:37 90 09/22/20 10:00 28 H 09/22/20 08:00 27 H 95 09/22/20 07:14 108 H 09/22/20 06:00 28 H 09/22/20 05:12 97 178/105 H Weight Admit Weight 321 lb 3.416 oz Weight 336 lb 13.861 oz Most Recent Monitor Data Heart Rate from ECG 91 NIBP 111/66 NIBP BP-Mean 81 Respiration from ECG 20 SpO2 92 I&O: 09/21/20 09/22/20 09/23/20 06:59 06:59 06:59 Intake Total 2977 2798 160 Output Total 8954 928 7287 Balance 1487 1982 -940 Result Diagrams: 09/22/20 03:25 09/22/20 03:25 Additional Labs: Accuchecks 09/22/20 09/22/20 09/21/20 10:25 04:19 20:44 POC Glucose 202 H 236 H 207 H I reviewed patient's labs and MAR Hospitalist ROS - Review of Systems ROS unobtainable: due to mental status - Medication Medications: Active Medications Generic Name Dose Route Start Last Admin Trade Name Freq PRN Reason Stop Dose Admin Albuterol/Ipratropium 3 ml 09/10/20 10:30 09/22/20 15:22 Ipratropium/Albuterol Sulfate 3 Ml Neb NEB 3 ml [id number] ALIYAH Administration Atorvastatin Calcium 40 mg 09/08/20 21:00 09/21/20 20:00 Atorvastatin Calcium 40 Mg Tab PO 40 mg HS ALIYAH Administration Carvedilol 25 mg 09/08/20 08:00 09/22/20 09:55 Carvedilol 25 Mg Tab PO 25 mg BID-WM ALIYAH Administration Diltiazem HCl 90 mg 09/08/20 21:00 09/22/20 09:55 Diltiazem Hcl Sr 90 Mg Capsule PO 90 mg BID ALIYAH Administration Famotidine 20 mg 09/12/20 21:00 09/22/20 09:55 Famotidine 20 Mg Tab PO 20 mg BID ALIYAH Administration Hydralazine HCl 20 mg 09/16/20 07:55 09/22/20 05:12 Hydralazine 20 Mg/Ml Vial SLOW IVP 20 mg Q6H PRN Administration SBP>180 Norepinephrine Bitartrate 8 mg 250 mls @ 0 mls/hr 09/10/20 05:07 09/10/20 07:50 / Device IVPB 250 mls INF PRN Administration TO MAINTAIN MAP > 65 Protocol As Directed Fentanyl 100 mls @ 0 mls/hr 09/13/20 09:00 09/15/20 14:14 Fentanyl Cadd IV 10/13/20 09:00 100 mls INF ALIYAH Administration Protocol Per Protocol Insulin Glargine 30 units/ 0.3 mls @ 0.1 mls/hr 09/13/20 21:00 09/22/20 09:55 Miscellaneous Medication SC 0.3 mls BID ALIYAH Administration Levofloxacin 750 mg/ Device 150 mls @ 100 mls/hr 09/17/20 21:00 09/21/20 20:01 IVPB 150 mls Q24HR ALIYAH Administration Dextrose/Water 1,000 mls @ 50 mls/hr 09/19/20 08:15 09/21/20 17:47 D5w IV 1,000 mls .Q20H ALIYAH Administration Meropenem 2 gm/ Miscellaneous 100 mls @ 200 mls/hr 09/19/20 17:00 09/22/20 10:57 Medication 1 each/ Sodium IVPB 100 mls Chloride 0100,0900,1700 ALIYAH Administration Diltiazem HCl 125 mg/ Sodium 125 mls @ 10 mls/hr 09/21/20 10:30 09/21/20 22:52 Chloride IVPB 125 mls INF ALIYAH Administration Protocol 10 MG/HR Insulin Human Regular 0 units 09/08/20 20:03 09/22/20 10:26 Insulin Regular 300 Units/3 Ml Vial SC 6 units .AGGRESSIVE SLIDING PRN Administration Aggressive Correctional Scale Methylprednisolone Sodium Succinate 20 mg 09/16/20 21:00 09/22/20 09:55 Methylprednisolone Sod Succ 40 Mg Vial IVP 20 mg BID ALIYAH Administration Metoclopramide HCl 10 mg 09/14/20 18:50 09/22/20 03:14 Metoclopramide Hcl 10 Mg/2 Ml Vial IVP 10 mg Q6H PRN Administration Nausea/Vomiting Propofol 1,000 mg 09/09/20 07:30 09/20/20 05:35 Propofol 1,000 Mg/100 Ml Vial IV 10/09/20 07:30 1,000 mg INF PRN Administration TO ACHIEVE GOAL RASS Protocol Sodium Chloride 10 ml 09/09/20 09:00 09/22/20 09:55 Flush - Normal Saline 10 Ml Syringe IVF 10 ml Q12HR ALIYAH Administration Tamsulosin HCl 0.4 mg 09/09/20 09:00 09/22/20 09:55 Tamsulosin Hcl 0.4 Mg Cap PO 0.4 mg DAILY ALIYAH Administration - Exam General Appearance: awake alert ENT - other findings: Tracheostomy Heart: RRR Respiratory: CTAB Gastrointestinal - other findings: PEG tube Psychiatric - other findings: Unable to assess Hosp A/P - Plan Hosp A/P (1) Acute respiratory failure with hypoxia Code(s): J96.01 - ACUTE RESPIRATORY FAILURE WITH HYPOXIA Status: Acute (2) Pneumonia due to 2019-nCoV Code(s): U07.1 - COVID-19; J12.89 - OTHER VIRAL PNEUMONIA Status: Acute (3) Atrial fibrillation with rapid ventricular response Code(s): I48.91 - UNSPECIFIED ATRIAL FIBRILLATION Status: Acute (4) CHF exacerbation Code(s): I50.9 - HEART FAILURE, UNSPECIFIED Status: Acute (5) COPD exacerbation Code(s): J44.1 - CHRONIC OBSTRUCTIVE PULMONARY DISEASE W (ACUTE) EXACERBATION Status: Acute - Plan Status post tracheostomy and PEG tube placement on September 20. Awaiting LTAC bed. Continue meropenem.
[2020-09-22] MEDS: Dextrose 5% in Water 1,000 ML IV SCH (17:13)
[2020-09-22] MEDS: Atorvastatin Calcium 40 MG TAB PO SCH (20:42)
[2020-09-23] MEDS: Meropenem 2 GM, Admixture Fee 1 EACH in Sodium Chloride 0.9% 100 ML IVPB SCH ×3 (00:39→17:29)
[2020-09-23 04:26] LABS: Band 3 % (5-11); Hypochromia SLIGHT = 6-15 cells (100X) (0-5/hpf); Lymphocytes 5 % (21-51); MDiff Complete? YES; Mean Corpuscular HGB CONC 30.7 g/dL (32.0-36.0); Mean Corpuscular Hemoglobin 27.9 pg (27.0-31.0); Mean Corpuscular Volume 90.9 fL (78.0-98.0); Mean Platelet Volume 11.7 fL (7.4-10.4); Monocytes 13 % (0-10); Neutrophil 76 % (42-75); Platelet Count 164 thou/uL (130-400); Platelet Morphology Comment Appears Adequate; RBC Distribution Width 14.6 % (11.5-14.5); Reactive Lymphocytes 3 % (0-10); White Blood Cell (WBC) Count 14.8 thou/uL (4.8-10.8)
[2020-09-23 04:35] LABS: ALT (SGPT) 56 U/L (8-55); AST (SGOT) 23 U/L (5-34); Albumin 2.4 g/dL (3.4-4.8); Alkaline Phosphatase 76 U/L (40-110); Anion Gap 11 mmol/L (10-20); BUN (Urea Nitrogen) 32 mg/dL (8.4-25.7); Bilirubin, Total 0.6 mg/dL (0.2-1.2); Calc. Creatinine Clearance 199 mL/min (70-130); Calcium 8.4 mg/dL (7.8-10.44); Carbon Dioxide 31 mmol/L (23-31); Chloride 98 mmol/L (98-107); Globulin 2.6 g/dL (2.4-3.5); Glucose 130 mg/dL (83-110); Sodium 136 mmol/L (136-145)
[2020-09-23] MEDS: methylPREDNISolone Sod Succ 40 MG VIAL IVP SCH ×2 (10:19→20:31)
[2020-09-23] MEDS: Tamsulosin HCl 0.4 MG CAP PO SCH (10:19)
[2020-09-23] MEDS: Insulin Glargine 30 UNITS in Pre-Filled Syringe 1 EACH SC SCH ×2 (10:19→20:56)
[2020-09-23] MEDS: Famotidine 20 MG TAB PO SCH ×2 (10:19→20:31)
[2020-09-23] MEDS: Carvedilol 25 MG TAB PO SCH ×2 (10:19→17:30)
[2020-09-23] MEDS: Diltiazem HCl SR 90 mg Capsule PO SCH ×2 (10:20→20:33)
[2020-09-23] MEDS: Dextrose 5% in Water 1,000 ML IV SCH (12:06)
--- NOTE | 2020-09-23 15:25 | PRG ---
DATE OF SERVICE: 09/23/2020 SUBJECTIVE: Pete Hogan will awaken. We are making very slow changes in his decreased ventilatory support. FiO2 is at 40, blood pressure 118/84, heart rate is 90. Intake and outputs, positive 22 mL. OBJECTIVE: LUNGS: Remarkable for equal breath sounds. HEART: Regular rhythm. ABDOMEN: Soft. EXTREMITIES: Without asymmetry. IMPRESSION: 1. Respiratory failure. 2. Chronic obstructive pulmonary disease exacerbation. 3. Probable bacterial superinfection after having COVID in July. Again, I do not feel he had a COVID pneumonia leading to this intubation. 4. Status post tracheostomy and PEG. 5. Extreme deconditioning. 6. Obesity. He has an LTAC bed approval, but no LTAC bed available at this point in time. We will continue with supportive care. Job ID: [id number]
--- NOTE | 2020-09-23 16:30 | PDOC.HOSPP ---
- Subjective Encounter Date: 09/23/20 Encounter Time: 11:30 Subjective: Patient seen for follow-up regarding COVID-19 pneumonia. - Objective Vital Signs & Weight: Vital Signs (12 hours) Temp Pulse Pulse Pulse Resp BP BP 09/23/20 16:00 98.7 F 18 09/23/20 14:00 20 09/23/20 12:00 97.9 F 20 09/23/20 11:06 89 09/23/20 10:00 21 H 09/23/20 09:09 85 92 141/83 H 139/95 H 09/23/20 08:00 99.1 F 20 09/23/20 06:38 89 09/23/20 06:00 21 H 09/23/20 05:00 19 Pulse Ox Pulse Ox Pulse Ox 09/23/20 16:00 09/23/20 14:00 09/23/20 12:00 09/23/20 11:06 09/23/20 10:00 09/23/20 09:09 96 99 09/23/20 08:00 99 09/23/20 06:38 09/23/20 06:00 09/23/20 05:00 Weight Admit Weight 321 lb 3.416 oz Weight 335 lb 15.752 oz Most Recent Monitor Data Heart Rate from ECG 84 NIBP 100/66 NIBP BP-Mean 77 Respiration from ECG 4 SpO2 100 I&O: 09/22/20 09/23/20 09/24/20 06:59 06:59 06:59 Intake Total 2798 1867 360 Output Total 816 1845 405 Balance 1982 22 -45 Result Diagrams: 09/23/20 03:10 09/23/20 03:10 Additional Labs: Accuchecks 09/23/20 09/23/20 10:14 04:27 POC Glucose 106 H 117 H Labs and MAR reviewed by nj Hospitalist ROS - Review of Systems Cardiovascular: denies: chest pain, palpitations, orthopnea, paroxysmal noc. dyspnea, edema, light headedness Gastrointestinal: denies: nausea, vomiting, abdominal pain, diarrhea, constipation, melena, hematochezia - Medication Medications: Active Medications Generic Name Dose Route Start Last Admin Trade Name Freq PRN Reason Stop Dose Admin Albuterol/Ipratropium 3 ml 09/10/20 10:30 09/23/20 11:05 Ipratropium/Albuterol Sulfate 3 Ml Neb NEB 3 ml [id number] ALIYAH Administration Atorvastatin Calcium 40 mg 09/08/20 21:00 09/22/20 20:42 Atorvastatin Calcium 40 Mg Tab PO 40 mg HS ALIYAH Administration Carvedilol 25 mg 09/08/20 08:00 09/23/20 10:19 Carvedilol 25 Mg Tab PO 25 mg BID-WM ALIYAH Administration Diltiazem HCl 90 mg 09/08/20 21:00 09/23/20 10:20 Diltiazem Hcl Sr 90 Mg Capsule PO 90 mg BID ALIYAH Administration Famotidine 20 mg 09/12/20 21:00 09/23/20 10:19 Famotidine 20 Mg Tab PO 20 mg BID ALIYAH Administration Hydralazine HCl 20 mg 09/16/20 07:55 09/22/20 05:12 Hydralazine 20 Mg/Ml Vial SLOW IVP 20 mg Q6H PRN Administration SBP>180 Norepinephrine Bitartrate 8 mg 250 mls @ 0 mls/hr 09/10/20 05:07 09/10/20 07:50 / Device IVPB 250 mls INF PRN Administration TO MAINTAIN MAP > 65 Protocol As Directed Insulin Glargine 30 units/ 0.3 mls @ 0.1 mls/hr 09/13/20 21:00 09/23/20 10:19 Miscellaneous Medication SC 0.3 mls BID ALIYAH Administration Levofloxacin 750 mg/ Device 150 mls @ 100 mls/hr 09/17/20 21:00 09/22/20 20:43 IVPB 150 mls Q24HR ALIYAH Administration Dextrose/Water 1,000 mls @ 50 mls/hr 09/19/20 08:15 09/23/20 12:06 D5w IV 1,000 mls .Q20H ALIYAH Administration Meropenem 2 gm/ Miscellaneous 100 mls @ 200 mls/hr 09/19/20 17:00 09/23/20 10:18 Medication 1 each/ Sodium IVPB 100 mls Chloride 0100,0900,1700 ALIYAH Administration Diltiazem HCl 125 mg/ Sodium 125 mls @ 10 mls/hr 09/21/20 10:30 09/22/20 23:26 Chloride IVPB 125 mls INF ALIYAH Administration Protocol 10 MG/HR Insulin Human Regular 0 units 09/08/20 20:03 09/22/20 10:26 Insulin Regular 300 Units/3 Ml Vial SC 6 units .AGGRESSIVE SLIDING PRN Administration Aggressive Correctional Scale Methylprednisolone Sodium Succinate 20 mg 09/16/20 21:00 09/23/20 10:19 Methylprednisolone Sod Succ 40 Mg Vial IVP 20 mg BID ALIYAH Administration Metoclopramide HCl 10 mg 09/14/20 18:50 09/22/20 03:14 Metoclopramide Hcl 10 Mg/2 Ml Vial IVP 10 mg Q6H PRN Administration Nausea/Vomiting Propofol 1,000 mg 09/09/20 07:30 09/20/20 05:35 Propofol 1,000 Mg/100 Ml Vial IV 10/09/20 07:30 1,000 mg INF PRN Administration TO ACHIEVE GOAL RASS Protocol Sodium Chloride 10 ml 09/09/20 09:00 09/23/20 10:20 Flush - Normal Saline 10 Ml Syringe IVF 10 ml Q12HR ALIYAH Administration Tamsulosin HCl 0.4 mg 09/09/20 09:00 09/23/20 10:19 Tamsulosin Hcl 0.4 Mg Cap PO 0.4 mg DAILY ALIYAH Administration - Exam General Appearance: awake alert ENT - other findings: Tracheostomy Heart: irregular Respiratory: CTAB Gastrointestinal - other findings: PEG tube Skin: no rashes Psychiatric: normal affect Hosp A/P - Plan Hosp A/P (1) Acute respiratory failure with hypoxia Code(s): J96.01 - ACUTE RESPIRATORY FAILURE WITH HYPOXIA Status: Acute (2) Pneumonia due to 2019-nCoV Code(s): U07.1 - COVID-19; J12.89 - OTHER VIRAL PNEUMONIA Status: Acute (3) Atrial fibrillation with rapid ventricular response Code(s): I48.91 - UNSPECIFIED ATRIAL FIBRILLATION Status: Acute (4) CHF exacerbation Code(s): I50.9 - HEART FAILURE, UNSPECIFIED Status: Acute (5) COPD exacerbation Code(s): J44.1 - CHRONIC OBSTRUCTIVE PULMONARY DISEASE W (ACUTE) EXACERBATION Status: Acute - Plan Status post tracheostomy and PEG tube placement on September 20. Try to wean patient off of Cardizem drip, patient also has oral Cardizem ordered. Awaiting LTAC bed. Continue meropenem. Discharge to LTAC when bed available.
[2020-09-23] MEDS: Atorvastatin Calcium 40 MG TAB PO SCH (20:32)
[2020-09-24] MEDS: Meropenem 2 GM, Admixture Fee 1 EACH in Sodium Chloride 0.9% 100 ML IVPB SCH ×3 (01:47→18:19)
[2020-09-24] MEDS: Insulin Regular 300 UNITS/3 ML VIAL SC PRN ×2 (05:45→09:31)
[2020-09-24 06:12] LABS: Band 1 % (5-11); Hemoglobin 11.1 g/dL (14.0-18.0); Lymphocytes 7 % (21-51); MDiff Complete? YES; Mean Corpuscular HGB CONC 31.3 g/dL (32.0-36.0); Mean Corpuscular Hemoglobin 28.3 pg (27.0-31.0); Mean Corpuscular Volume 90.4 fL (78.0-98.0); Mean Platelet Volume 11.4 fL (7.4-10.4); Metamyelocyte 1 % (0-0); Monocytes 4 % (0-10); Neutrophil 87 % (42-75); Platelet Count 154 thou/uL (130-400); Platelet Morphology Comment Appears Adequate; RBC Distribution Width 14.1 % (11.5-14.5); Red Blood Cell (RBC) Count 3.92 mill/uL (4.70-6.10); White Blood Cell (WBC) Count 13.7 thou/uL (4.8-10.8)
[2020-09-24 06:26] LABS: ALT (SGPT) 47 U/L (8-55); AST (SGOT) 24 U/L (5-34); Albumin 2.3 g/dL (3.4-4.8); Alkaline Phosphatase 68 U/L (40-110); Anion Gap 11 mmol/L (10-20); BUN (Urea Nitrogen) 25 mg/dL (8.4-25.7); Bilirubin, Total 0.5 mg/dL (0.2-1.2); Calc. Creatinine Clearance 215 mL/min (70-130); Carbon Dioxide 31 mmol/L (23-31); Chloride 97 mmol/L (98-107); Globulin 2.4 g/dL (2.4-3.5); Glucose 182 mg/dL (83-110); Potassium 3.7 mmol/L (3.5-5.1); Protein, Total 4.7 g/dL (5.8-8.1); Sodium 135 mmol/L (136-145)
--- NOTE | 2020-09-24 08:14 | PRG ---
DATE OF SERVICE: 09/24/2020 SUBJECTIVE: The patient is doing well today. He is awake, alert. He is off all sedation. He has been doing some trach collar trials during the day. OBJECTIVE: VITAL SIGNS: Temperature 98.3, pulse 93, blood pressure 123/70, O2 saturation 99%. HEENT: Unremarkable. NECK: Trach in good position. LUNGS: Fairly clear anteriorly. CARDIOVASCULAR: S1 and S2. Regular. ABDOMEN: Soft and nontender. EXTREMITIES: Generalized edema throughout. LABORATORY DATA: White blood cell count 13.7, hematocrit 35.5, and platelet count 154. Sodium 135, potassium 3.7, chloride 97, CO2 of 31, BUN 25, creatinine 0.6, and glucose 182. ASSESSMENT: 1. Respiratory failure. 2. Chronic obstructive pulmonary disease. 3. COVID back in July. 4. Status post trach and PEG placement. PLAN: Overall, he seems to be weaning steadily. He has been accepted to an LTAC, where we are awaiting for a bed to open up in that facility. He started antibiotics on 09/17 - Levaquin and meropenem on 09/19. So far, nothing has grown from his cultures, so they both can be stopped at 7 days. He is no longer requiring Levophed, so I will drop that from his MAR. We can probably also cut back on his daily labs. Job ID: [id number]
[2020-09-24] MEDS: Insulin Glargine 30 UNITS in Pre-Filled Syringe 1 EACH SC SCH ×2 (09:24→20:15)
[2020-09-24] MEDS: methylPREDNISolone Sod Succ 40 MG VIAL IVP SCH ×2 (09:25→20:09)
[2020-09-24] MEDS: Tamsulosin HCl 0.4 MG CAP PO SCH (09:25)
[2020-09-24] MEDS: Famotidine 20 MG TAB PO SCH ×2 (09:25→20:06)
[2020-09-24] MEDS: Carvedilol 25 MG TAB PO SCH ×2 (09:25→17:24)
[2020-09-24] MEDS: Diltiazem HCl SR 90 mg Capsule PO SCH ×2 (09:25→20:08)
[2020-09-24] MEDS: Dextrose 5% in Water 1,000 ML IV SCH (09:26)
--- NOTE | 2020-09-24 18:29 | PDOC.HOSPP ---
- Subjective Encounter Date: 09/24/20 Encounter Time: 08:30 Subjective: Patient seen in follow-up for Covid pneumonia. Patient has tracheostomy. Denies chest pain or shortness of breath. - Objective Vital Signs & Weight: Vital Signs (12 hours) Temp Pulse Resp BP Pulse Ox 09/24/20 18:00 19 09/24/20 16:00 98.8 F 09/24/20 15:12 92 20 96 09/24/20 12:00 98.9 F 09/24/20 11:58 95 09/24/20 11:09 105 H 20 97 09/24/20 09:43 98 09/24/20 08:00 98.7 F 25 H 99 09/24/20 07:33 94 123/70 09/24/20 07:32 97 22 H 99 Weight Admit Weight 321 lb 3.416 oz Weight 334 lb 12.8 oz Most Recent Monitor Data Heart Rate from ECG 99 NIBP 120/70 NIBP BP-Mean 86 Respiration from ECG 18 SpO2 97 I&O: 09/23/20 09/24/20 09/25/20 06:59 06:59 06:59 Intake Total 1867 2925 1352 Output Total 1845 1055 445 Balance 22 1870 907 Result Diagrams: 09/24/20 05:30 09/24/20 05:30 Additional Labs: Accuchecks 09/24/20 09/24/20 09/24/20 17:28 09:29 05:42 POC Glucose 133 H 217 H 179 H 09/23/20 20:39 POC Glucose 139 H I reviewed patient's labs and MAR Hospitalist ROS - Review of Systems Cardiovascular: denies: chest pain, palpitations, orthopnea, paroxysmal noc. dyspnea, edema, light headedness Gastrointestinal: denies: nausea, vomiting, abdominal pain, diarrhea, constipation, melena, hematochezia - Medication Medications: Active Medications Generic Name Dose Route Start Last Admin Trade Name Freq PRN Reason Stop Dose Admin Albuterol/Ipratropium 3 ml 09/10/20 10:30 09/24/20 15:12 Ipratropium/Albuterol Sulfate 3 Ml Neb NEB 3 ml [id number] ALIYAH Administration Atorvastatin Calcium 40 mg 09/08/20 21:00 09/23/20 20:32 Atorvastatin Calcium 40 Mg Tab PO 40 mg HS ALIYAH Administration Carvedilol 25 mg 09/08/20 08:00 09/24/20 17:24 Carvedilol 25 Mg Tab PO 25 mg BID-WM ALIYAH Administration Diltiazem HCl 90 mg 09/08/20 21:00 09/24/20 09:25 Diltiazem Hcl Sr 90 Mg Capsule PO 90 mg BID ALIYAH Administration Famotidine 20 mg 09/12/20 21:00 09/24/20 09:25 Famotidine 20 Mg Tab PO 20 mg BID ALIYAH Administration Hydralazine HCl 20 mg 09/16/20 07:55 09/22/20 05:12 Hydralazine 20 Mg/Ml Vial SLOW IVP 20 mg Q6H PRN Administration SBP>180 Insulin Glargine 30 units/ 0.3 mls @ 0.1 mls/hr 09/13/20 21:00 09/24/20 09:24 Miscellaneous Medication SC 0.3 mls BID ALIYAH Administration Levofloxacin 750 mg/ Device 150 mls @ 100 mls/hr 09/17/20 21:00 09/23/20 20:33 IVPB 150 mls Q24HR ALIYAH Administration Dextrose/Water 1,000 mls @ 50 mls/hr 09/19/20 08:15 09/24/20 09:26 D5w IV Not Given .Q20H ALIYAH Meropenem 2 gm/ Miscellaneous 100 mls @ 200 mls/hr 09/19/20 17:00 09/24/20 18:19 Medication 1 each/ Sodium IVPB 100 mls Chloride 0100,0900,1700 ALIYAH Administration Insulin Human Regular 0 units 09/08/20 20:03 09/24/20 09:31 Insulin Regular 300 Units/3 Ml Vial SC 6 units .AGGRESSIVE SLIDING PRN Administration Aggressive Correctional Scale Methylprednisolone Sodium Succinate 20 mg 09/16/20 21:00 09/24/20 09:25 Methylprednisolone Sod Succ 40 Mg Vial IVP 20 mg BID ALIYAH Administration Metoclopramide HCl 10 mg 09/14/20 18:50 09/22/20 03:14 Metoclopramide Hcl 10 Mg/2 Ml Vial IVP 10 mg Q6H PRN Administration Nausea/Vomiting Sodium Chloride 10 ml 09/09/20 09:00 09/24/20 09:24 Flush - Normal Saline 10 Ml Syringe IVF 10 ml Q12HR ALIYAH Administration Tamsulosin HCl 0.4 mg 09/09/20 09:00 09/24/20 09:25 Tamsulosin Hcl 0.4 Mg Cap PO 0.4 mg DAILY ALIYAH Administration - Exam General - other findings: Morbid obesity Eye: anicteric sclera ENT: normocephalic atraumatic ENT - other findings: Tracheostomy Neck: supple Heart: RRR Respiratory: CTAB Gastrointestinal - other findings: PEG tube Psychiatric: normal affect Hosp A/P - Plan Hosp A/P (1) Acute respiratory failure with hypoxia Code(s): J96.01 - ACUTE RESPIRATORY FAILURE WITH HYPOXIA Status: Acute (2) Pneumonia due to 2019-nCoV Code(s): U07.1 - COVID-19; J12.89 - OTHER VIRAL PNEUMONIA Status: Acute (3) Atrial fibrillation with rapid ventricular response Code(s): I48.91 - UNSPECIFIED ATRIAL FIBRILLATION Status: Acute (4) CHF exacerbation Code(s): I50.9 - HEART FAILURE, UNSPECIFIED Status: Acute (5) COPD exacerbation Code(s): J44.1 - CHRONIC OBSTRUCTIVE PULMONARY DISEASE W (ACUTE) EXACERBATION Status: Acute - Plan Status post tracheostomy and PEG tube placement on September 20. Patient is on Cardizem for atrial fibrillation. Awaiting LTAC bed. Antibiotics discontinued. Discharge to LTAC when bed available.
[2020-09-24] MEDS: Enoxaparin Sodium 40 MG/0.4 ML SYRINGE SC SCH (20:05)
[2020-09-24] MEDS: Atorvastatin Calcium 40 MG TAB PO SCH (20:06)
[2020-09-24] MEDS: Acetaminophen 325 MG TAB PO PRN (20:06)
[2020-09-25] MEDS: Meropenem 2 GM, Admixture Fee 1 EACH in Sodium Chloride 0.9% 100 ML IVPB SCH ×3 (00:54→17:10)
[2020-09-25] MEDS: Dextrose 5% in Water 1,000 ML IV SCH ×2 (04:17→17:10)
[2020-09-25 04:51] LABS: Anion Gap 12 mmol/L (10-20); BUN (Urea Nitrogen) 22 mg/dL (8.4-25.7); Calc. Creatinine Clearance 253 mL/min (70-130); Calcium 7.9 mg/dL (7.8-10.44); Carbon Dioxide 29 mmol/L (23-31); Chloride 94 mmol/L (98-107); Glucose 230 mg/dL (83-110); Potassium 3.7 mmol/L (3.5-5.1); Sodium 131 mmol/L (136-145)
[2020-09-25] MEDS: Insulin Regular 300 UNITS/3 ML VIAL SC PRN ×3 (06:33→16:48)
[2020-09-25] MEDS: Famotidine 20 MG TAB PO SCH ×2 (09:21→20:55)
[2020-09-25] MEDS: Carvedilol 25 MG TAB PO SCH ×2 (09:21→16:48)
[2020-09-25] MEDS: Diltiazem HCl SR 90 mg Capsule PO SCH ×2 (09:21→20:53)
[2020-09-25] MEDS: methylPREDNISolone Sod Succ 40 MG VIAL IVP SCH ×2 (09:22→20:54)
[2020-09-25] MEDS: Insulin Glargine 30 UNITS in Pre-Filled Syringe 1 EACH SC SCH ×2 (09:22→21:01)
[2020-09-25] MEDS: Tamsulosin HCl 0.4 MG CAP PO SCH (09:23)
--- NOTE | 2020-09-25 15:37 | PRG ---
DATE OF SERVICE: 09/25/2020 SUBJECTIVE: Mr. Hogan is tolerating trach collar trials. He is doing well with this. OBJECTIVE: VITAL SIGNS: Heart rates in the 90s, respiratory rates in the 20s, oximetry is 93, and blood pressure 101/56. LUNGS: Remarkable for coarse equal breath sounds. HEART: Regular rhythm. ABDOMEN: Soft. EXTREMITIES: Without asymmetry. LABORATORY DATA: Sodium 131, potassium 3.7, chloride 94, bicarb 29, BUN 22, and creatinine 0.5. IMPRESSION: 1. Chronic obstructive pulmonary disease exacerbation leading to respiratory failure. 2. Previous COVID infection. 3. Deconditioning. 4. Obesity. 5. Bronchitis with possible coexistent pneumonia. PLAN: We will simplify antibiotics once he has completed 7 to 10 days. Tomorrow will be 7 days. Job ID: [id number]
--- NOTE | 2020-09-25 16:04 | PDOC.HOSPP ---
- Subjective Encounter Date: 09/25/20 Encounter Time: 12:40 Subjective: Patient seen for follow-up for pneumonia. Denies chest pain or shortness of breath. - Objective Vital Signs & Weight: Vital Signs (12 hours) Temp Pulse Pulse Pulse Resp BP BP 09/25/20 14:31 95 21 H 09/25/20 12:00 98.8 F 09/25/20 11:25 99 25 H 09/25/20 09:43 96 108 H 94/61 09/25/20 08:30 09/25/20 08:00 98.6 F 09/25/20 07:30 98 129/75 09/25/20 07:28 93 28 H 09/25/20 06:00 19 BP Pulse Ox Pulse Ox Pulse Ox 09/25/20 14:31 93 L 09/25/20 12:00 09/25/20 11:25 93 L 09/25/20 09:43 130/77 92 L 94 L 09/25/20 08:30 98 09/25/20 08:00 98 09/25/20 07:30 09/25/20 07:28 98 09/25/20 06:00 Weight Admit Weight 321 lb 3.416 oz Weight 332 lb 8 oz Most Recent Monitor Data Heart Rate from ECG 110 NIBP 106/75 NIBP BP-Mean 85 Respiration from ECG 24 SpO2 95 I&O: 09/24/20 09/25/20 09/26/20 06:59 06:59 06:59 Intake Total 2925 2786.0 460 Output Total 9238 910 2012 Balance 1870 1906.0 -1030 Result Diagrams: 09/24/20 05:30 09/25/20 04:10 Additional Labs: Accuchecks 09/25/20 09/25/20 09/24/20 09:27 06:30 20:14 POC Glucose 222 H 221 H 153 H 09/24/20 17:28 POC Glucose 133 H Labs and MAR reviewed by hi Hospitalist ROS - Review of Systems Cardiovascular: denies: chest pain, palpitations, orthopnea, paroxysmal noc. dyspnea, edema Gastrointestinal: denies: nausea, vomiting, abdominal pain, diarrhea, constipation, melena - Medication Medications: Active Medications Generic Name Dose Route Start Last Admin Trade Name Freq PRN Reason Stop Dose Admin Acetaminophen 650 mg 09/08/20 20:11 09/24/20 20:06 Acetaminophen 325 Mg Tab PO 650 mg Q4H PRN Administration Headache/Fever/Mild Pain (1-3) Albuterol/Ipratropium 3 ml 09/10/20 10:30 09/25/20 14:31 Ipratropium/Albuterol Sulfate 3 Ml Neb NEB 3 ml [id number] ALIYAH Administration Atorvastatin Calcium 40 mg 09/08/20 21:00 09/24/20 20:06 Atorvastatin Calcium 40 Mg Tab PO 40 mg HS ALIYAH Administration Carvedilol 25 mg 09/08/20 08:00 09/25/20 09:21 Carvedilol 25 Mg Tab PO 25 mg BID-WM ALIYAH Administration Diltiazem HCl 90 mg 09/08/20 21:00 09/25/20 09:21 Diltiazem Hcl Sr 90 Mg Capsule PO 90 mg BID ALIYAH Administration Enoxaparin Sodium 40 mg 09/24/20 21:00 09/24/20 20:05 Enoxaparin Sodium 40 Mg/0.4 Ml Syringe SC 40 mg 2100 ALIYAH Administration Famotidine 20 mg 09/12/20 21:00 09/25/20 09:21 Famotidine 20 Mg Tab PO 20 mg BID ALIYAH Administration Hydralazine HCl 20 mg 09/16/20 07:55 09/22/20 05:12 Hydralazine 20 Mg/Ml Vial SLOW IVP 20 mg Q6H PRN Administration SBP>180 Insulin Glargine 30 units/ 0.3 mls @ 0.1 mls/hr 09/13/20 21:00 09/25/20 09:22 Miscellaneous Medication SC 0.3 mls BID ALIYAH Administration Levofloxacin 750 mg/ Device 150 mls @ 100 mls/hr 09/17/20 21:00 09/24/20 20:09 IVPB 150 mls Q24HR ALIYAH Administration Dextrose/Water 1,000 mls @ 50 mls/hr 09/19/20 08:15 09/25/20 04:17 D5w IV Not Given .Q20H ALIYAH Meropenem 2 gm/ Miscellaneous 100 mls @ 200 mls/hr 09/19/20 17:00 09/25/20 09:21 Medication 1 each/ Sodium IVPB 100 mls Chloride 0100,0900,1700 ALIYAH Administration Insulin Human Regular 0 units 09/08/20 20:03 09/25/20 09:31 Insulin Regular 300 Units/3 Ml Vial SC 6 units .AGGRESSIVE SLIDING PRN Administration Aggressive Correctional Scale Methylprednisolone Sodium Succinate 20 mg 09/16/20 21:00 09/25/20 09:22 Methylprednisolone Sod Succ 40 Mg Vial IVP 20 mg BID ALIYAH Administration Metoclopramide HCl 10 mg 09/14/20 18:50 09/22/20 03:14 Metoclopramide Hcl 10 Mg/2 Ml Vial IVP 10 mg Q6H PRN Administration Nausea/Vomiting Sodium Chloride 10 ml 09/09/20 09:00 09/25/20 09:23 Flush - Normal Saline 10 Ml Syringe IVF 10 ml Q12HR ALIYAH Administration Tamsulosin HCl 0.4 mg 09/09/20 09:00 09/25/20 09:23 Tamsulosin Hcl 0.4 Mg Cap PO 0.4 mg DAILY ALIYAH Administration Hospitalist Exam Vitals: Vital Signs (12 hours) Temp Pulse Pulse Pulse Resp BP BP 09/25/20 14:31 95 21 H 09/25/20 12:00 98.8 F 09/25/20 11:25 99 25 H 09/25/20 09:43 96 108 H 94/61 09/25/20 08:30 09/25/20 08:00 98.6 F 09/25/20 07:30 98 129/75 09/25/20 07:28 93 28 H 09/25/20 06:00 19 BP Pulse Ox Pulse Ox Pulse Ox 09/25/20 14:31 93 L 09/25/20 12:00 09/25/20 11:25 93 L 09/25/20 09:43 130/77 92 L 94 L 09/25/20 08:30 98 09/25/20 08:00 98 09/25/20 07:30 09/25/20 07:28 98 09/25/20 06:00 Weight Admit Weight 321 lb 3.416 oz Weight 332 lb 8 oz Most Recent Monitor Data Heart Rate from ECG 110 NIBP 106/75 NIBP BP-Mean 85 Respiration from ECG 24 SpO2 95 General Appearance: awake alert Eye: anicteric sclera ENT - other findings: Tracheostomy Heart: RRR Respiratory: CTAB Skin: no rashes Psychiatric: normal affect Hosp A/P - Plan Hosp A/P (1) Acute respiratory failure with hypoxia Code(s): J96.01 - ACUTE RESPIRATORY FAILURE WITH HYPOXIA Status: Acute (2) Pneumonia due to 2019-nCoV Code(s): U07.1 - COVID-19; J12.89 - OTHER VIRAL PNEUMONIA Status: Acute (3) Atrial fibrillation with rapid ventricular response Code(s): I48.91 - UNSPECIFIED ATRIAL FIBRILLATION Status: Acute (4) CHF exacerbation Code(s): I50.9 - HEART FAILURE, UNSPECIFIED Status: Acute (5) COPD exacerbation Code(s): J44.1 - CHRONIC OBSTRUCTIVE PULMONARY DISEASE W (ACUTE) EXACERBATION Status: Acute - Plan Patient is awaiting bed at the LTAC. Status post tracheostomy and PEG tube placement on September 20. Continue Cardizem for atrial fibrillation. Awaiting LTAC bed. Discharge to LTAC when bed available.
[2020-09-25] MEDS: Enoxaparin Sodium 40 MG/0.4 ML SYRINGE SC SCH (20:55)
[2020-09-25] MEDS: Atorvastatin Calcium 40 MG TAB PO SCH (20:55)
[2020-09-26] MEDS: Dextrose 5% in Water 1,000 ML IV SCH ×2 (00:36→17:09)
[2020-09-26] MEDS: Meropenem 2 GM, Admixture Fee 1 EACH in Sodium Chloride 0.9% 100 ML IVPB SCH ×3 (00:37→18:36)
[2020-09-26 06:07] LABS: Anion Gap 12 mmol/L (10-20); BUN (Urea Nitrogen) 19 mg/dL (8.4-25.7); Calc. Creatinine Clearance 267 mL/min (70-130); Calcium 7.9 mg/dL (7.8-10.44); Carbon Dioxide 31 mmol/L (23-31); Chloride 94 mmol/L (98-107); Glucose 130 mg/dL (83-110); Potassium 3.5 mmol/L (3.5-5.1); Sodium 133 mmol/L (136-145)
[2020-09-26] MEDS ORDERED: Potassium Chloride 20 MEQ TAB PO SCH (06:30)
[2020-09-26] MEDS: Acetaminophen 325 MG TAB PO PRN (08:10)
[2020-09-26] MEDS: Diltiazem HCl SR 90 mg Capsule PO SCH ×2 (08:11→19:29)
[2020-09-26] MEDS: methylPREDNISolone Sod Succ 40 MG VIAL IVP SCH ×2 (08:11→19:27)
[2020-09-26] MEDS: Carvedilol 25 MG TAB PO SCH ×2 (08:12→17:12)
[2020-09-26] MEDS: Tamsulosin HCl 0.4 MG CAP PO SCH (08:12)
[2020-09-26] MEDS: Famotidine 20 MG TAB PO SCH ×2 (08:12→19:26)
[2020-09-26] MEDS: Insulin Glargine 30 UNITS in Pre-Filled Syringe 1 EACH SC SCH ×2 (09:24→21:47)
[2020-09-26] MEDS: Vancomycin 1 GM in Premix Bag 1 BAG IVPB SCH ×2 (09:49→22:49)
[2020-09-26] MEDS: Micafungin 100 MG in Sodium Chloride 0.9% 100 ML IVPB SCH (10:44)
--- NOTE | 2020-09-26 14:01 | PRG ---
DATE OF SERVICE: 09/26/2020 OBJECTIVE: Pete Hogan on T-collar. OBJECTIVE: VITAL SIGNS: Respiratory rates in the 20s, FiO2 is at 40, oximetries in the 90s. LUNGS: Remarkable for equal breath sounds. HEART: Regular rhythm. ABDOMEN: Soft. EXTREMITIES: Without asymmetry. LABORATORY DATA: White count repeated for couple of days. Sodium 133, potassium 3.5, chloride 94, bicarb 31, BUN 19, creatinine 0.47. IMPRESSION: Respiratory failure associated with chronic obstructive pulmonary disease exacerbation after COVID, clinically stable with a tracheostomy and PEG in place. Awaiting placement. He appears to be progressing from a respiratory standpoint. Job ID: [id number]
--- NOTE | 2020-09-26 17:43 | PDOC.HOSPP ---
- Subjective Encounter Date: 09/26/20 Encounter Time: 11:00 Subjective: Patient seen for follow-up for Covid pneumonia. Denies chest pain or shortness of fever today. - Objective Vital Signs & Weight: Vital Signs (12 hours) Temp Pulse Pulse Pulse Resp BP BP 09/26/20 16:00 98.3 F 28 H 09/26/20 15:46 104 H 105/66 09/26/20 15:44 108 H 33 H 09/26/20 14:00 98.7 F 26 H 09/26/20 12:00 98.7 F 25 H 09/26/20 10:28 109 H 109/75 09/26/20 10:26 126 H 33 H 09/26/20 10:00 100.4 F H 34 H 09/26/20 09:55 80 84 107/67 09/26/20 09:00 102.7 F H 09/26/20 08:40 102.7 F H 09/26/20 08:10 103.0 F H 09/26/20 08:00 103.0 F H 44 H 09/26/20 07:07 122 H 09/26/20 07:06 125 H 38 H BP Pulse Ox Pulse Ox Pulse Ox 09/26/20 16:00 09/26/20 15:46 09/26/20 15:44 09/26/20 14:00 09/26/20 12:00 09/26/20 10:28 09/26/20 10:26 97 09/26/20 10:00 09/26/20 09:55 101/76 97 98 09/26/20 09:00 09/26/20 08:40 09/26/20 08:10 09/26/20 08:00 90 L 09/26/20 07:07 09/26/20 07:06 90 L Weight Admit Weight 321 lb 3.416 oz Weight 333 lb 6.4 oz Most Recent Monitor Data Heart Rate from ECG 115 NIBP 131/87 NIBP BP-Mean 101 Respiration from ECG 26 SpO2 96 I&O: 09/25/20 09/26/20 09/27/20 06:59 06:59 06:59 Intake Total 2786.0 3017.0 1748 Output Total 880 2340 485 Balance 1906.0 677.0 1263 Result Diagrams: 09/24/20 05:30 09/26/20 04:30 Additional Labs: Accuchecks 09/26/20 09/26/20 09/25/20 16:28 06:34 20:52 POC Glucose 107 H 143 H 156 H I reviewed patient's labs and MAR Hospitalist ROS - Review of Systems Constitutional: reports: fever, weakness Respiratory: denies: cough, dry, shortness of breath, hemoptysis, SOB with excertion, pleuritic pain, sputum, wheezing Cardiovascular: denies: chest pain, palpitations, orthopnea, paroxysmal noc. dyspnea, edema, light headedness - Medication Medications: Active Medications Generic Name Dose Route Start Last Admin Trade Name Freq PRN Reason Stop Dose Admin Acetaminophen 650 mg 09/08/20 20:11 09/26/20 08:10 Acetaminophen 325 Mg Tab PO 650 mg Q4H PRN Administration Headache/Fever/Mild Pain (1-3) Albuterol/Ipratropium 3 ml 09/10/20 10:30 09/26/20 15:44 Ipratropium/Albuterol Sulfate 3 Ml Neb NEB 3 ml [id number] ALIYAH Administration Atorvastatin Calcium 40 mg 09/08/20 21:00 09/25/20 20:55 Atorvastatin Calcium 40 Mg Tab PO 40 mg HS ALIYAH Administration Carvedilol 25 mg 09/08/20 08:00 09/26/20 17:12 Carvedilol 25 Mg Tab PO 25 mg BID-WM ALIYAH Administration Diltiazem HCl 90 mg 09/08/20 21:00 09/26/20 08:11 Diltiazem Hcl Sr 90 Mg Capsule PO 90 mg BID ALIYAH Administration Enoxaparin Sodium 40 mg 09/24/20 21:00 09/25/20 20:55 Enoxaparin Sodium 40 Mg/0.4 Ml Syringe SC 40 mg 2100 ALIYAH Administration Famotidine 20 mg 09/12/20 21:00 09/26/20 08:12 Famotidine 20 Mg Tab PO 20 mg BID ALIYAH Administration Hydralazine HCl 20 mg 09/16/20 07:55 09/22/20 05:12 Hydralazine 20 Mg/Ml Vial SLOW IVP 20 mg Q6H PRN Administration SBP>180 Insulin Glargine 30 units/ 0.3 mls @ 0.1 mls/hr 09/13/20 21:00 09/26/20 09:24 Miscellaneous Medication SC 0.3 mls BID ALIYAH Administration Levofloxacin 750 mg/ Device 150 mls @ 100 mls/hr 09/17/20 21:00 09/25/20 20:54 IVPB 150 mls Q24HR ALIYAH Administration Dextrose/Water 1,000 mls @ 50 mls/hr 09/19/20 08:15 09/26/20 17:09 D5w IV 1,000 mls .Q20H ALIYAH Administration Meropenem 2 gm/ Miscellaneous 100 mls @ 200 mls/hr 09/19/20 17:00 09/26/20 08:12 Medication 1 each/ Sodium IVPB 100 mls Chloride 0100,0900,1700 ALIYAH Administration Vancomycin HCl 1 gm/ Device 200 mls @ 200 mls/hr 09/26/20 10:00 09/26/20 09:49 IVPB 200 mls 1000,2200 ALIYAH Administration Micafungin Sodium 100 mg/ 100 mls @ 100 mls/hr 09/26/20 10:00 09/26/20 10:44 Sodium Chloride IVPB 100 mls 1000 ALIYAH Administration Insulin Human Regular 0 units 09/08/20 20:03 09/25/20 16:48 Insulin Regular 300 Units/3 Ml Vial SC 3 units .AGGRESSIVE SLIDING PRN Administration Aggressive Correctional Scale Methylprednisolone Sodium Succinate 20 mg 09/16/20 21:00 09/26/20 08:11 Methylprednisolone Sod Succ 40 Mg Vial IVP 20 mg BID ALIYAH Administration Metoclopramide HCl 10 mg 09/14/20 18:50 09/22/20 03:14 Metoclopramide Hcl 10 Mg/2 Ml Vial IVP 10 mg Q6H PRN Administration Nausea/Vomiting Sodium Chloride 10 ml 09/09/20 09:00 09/26/20 09:50 Flush - Normal Saline 10 Ml Syringe IVF 10 ml Q12HR ALIYAH Administration Tamsulosin HCl 0.4 mg 09/09/20 09:00 09/26/20 08:12 Tamsulosin Hcl 0.4 Mg Cap PO 0.4 mg DAILY ALIYAH Administration Hospitalist Exam Vitals: Vital Signs (12 hours) Temp Pulse Pulse Pulse Resp BP BP 09/26/20 16:00 98.3 F 28 H 09/26/20 15:46 104 H 105/66 09/26/20 15:44 108 H 33 H 09/26/20 14:00 98.7 F 26 H 09/26/20 12:00 98.7 F 25 H 09/26/20 10:28 109 H 109/75 09/26/20 10:26 126 H 33 H 09/26/20 10:00 100.4 F H 34 H 09/26/20 09:55 80 84 107/67 09/26/20 09:00 102.7 F H 09/26/20 08:40 102.7 F H 09/26/20 08:10 103.0 F H 09/26/20 08:00 103.0 F H 44 H 09/26/20 07:07 122 H 09/26/20 07:06 125 H 38 H BP Pulse Ox Pulse Ox Pulse Ox 09/26/20 16:00 09/26/20 15:46 09/26/20 15:44 09/26/20 14:00 09/26/20 12:00 09/26/20 10:28 09/26/20 10:26 97 09/26/20 10:00 09/26/20 09:55 101/76 97 98 09/26/20 09:00 09/26/20 08:40 09/26/20 08:10 09/26/20 08:00 90 L 09/26/20 07:07 09/26/20 07:06 90 L Weight Admit Weight 321 lb 3.416 oz Weight 333 lb 6.4 oz Most Recent Monitor Data Heart Rate from ECG 115 NIBP 131/87 NIBP BP-Mean 101 Respiration from ECG 26 SpO2 96 General Appearance: awake alert ENT - other findings: Status post tracheostomy Heart: RRR Respiratory: CTAB Gastrointestinal: soft Gastrointestinal - other findings: Status post PEG tube Skin: no rashes Psychiatric: normal affect Hosp A/P - Plan Hosp A/P (1) Acute respiratory failure with hypoxia Code(s): J96.01 - ACUTE RESPIRATORY FAILURE WITH HYPOXIA Status: Acute (2) Pneumonia due to 2019-nCoV Code(s): U07.1 - COVID-19; J12.89 - OTHER VIRAL PNEUMONIA Status: Acute (3) Atrial fibrillation with rapid ventricular response Code(s): I48.91 - UNSPECIFIED ATRIAL FIBRILLATION Status: Acute (4) CHF exacerbation Code(s): I50.9 - HEART FAILURE, UNSPECIFIED Status: Acute (5) COPD exacerbation Code(s): J44.1 - CHRONIC OBSTRUCTIVE PULMONARY DISEASE W (ACUTE) EXACERBATION Status: Acute - Plan Status post tracheostomy and PEG tube placement on September 20. Patient is on meropenem and levofloxacin. Continue Cardizem for A. fib. Awaiting LTAC bed. Discharge to LTAC when bed available.
--- NOTE | 2020-09-26 18:23 | RAD ---
PORTABLE CHEST: 09/26/20 HISTORY: Pneumonia. Shortness of breath. COMPARISON: 09/17/20. Tracheostomy device is noted. There is hazy infiltrate in the right upper lung similar to the prior e xam. There is hazy infiltrate in the left mid and lower lung, also similar to the prior exam. There a re bilateral effusions which appear unchanged. IMPRESSION: Bilateral infiltrates and bilateral effusions. Not significantly changed. POS: AGW
[2020-09-26] MEDS: Atorvastatin Calcium 40 MG TAB PO SCH (19:25)
[2020-09-26] MEDS: Enoxaparin Sodium 40 MG/0.4 ML SYRINGE SC SCH (19:26)
[2020-09-27] MEDS: Meropenem 2 GM, Admixture Fee 1 EACH in Sodium Chloride 0.9% 100 ML IVPB SCH ×3 (00:29→17:26)
[2020-09-27 05:09] LABS: Anion Gap 14 mmol/L (10-20); BUN (Urea Nitrogen) 20 mg/dL (8.4-25.7); Calc. Creatinine Clearance 286 mL/min (70-130); Calcium 8.1 mg/dL (7.8-10.44); Carbon Dioxide 27 mmol/L (23-31); Chloride 94 mmol/L (98-107); Glucose 89 mg/dL (83-110); Potassium 3.9 mmol/L (3.5-5.1); Sodium 131 mmol/L (136-145)
[2020-09-27] MEDS: Acetaminophen 325 MG TAB PO PRN (08:40)
[2020-09-27] MEDS: methylPREDNISolone Sod Succ 40 MG VIAL IVP SCH ×2 (08:41→20:18)
[2020-09-27] MEDS: Famotidine 20 MG TAB PO SCH (08:41)
[2020-09-27] MEDS: Diltiazem HCl SR 90 mg Capsule PO SCH ×3 (08:41→21:16)
[2020-09-27] MEDS: Tamsulosin HCl 0.4 MG CAP PO SCH (08:41)
[2020-09-27] MEDS: Carvedilol 25 MG TAB PO SCH ×3 (08:41→17:37)
[2020-09-27] MEDS: Insulin Glargine 30 UNITS in Pre-Filled Syringe 1 EACH SC SCH ×2 (08:43→20:20)
[2020-09-27] MEDS: Vancomycin 1 GM in Premix Bag 1 BAG IVPB SCH ×2 (08:53→21:16)
[2020-09-27] MEDS ORDERED: Digoxin 0.5 MG/2 ML AMP SLOW IVP SCH (09:30)
[2020-09-27] MEDS: Micafungin 100 MG in Sodium Chloride 0.9% 100 ML IVPB SCH (09:40)
[2020-09-27] MEDS ORDERED: Norepinephrine 8 MG/0.9% NS 250 ML ONE (09:47)
[2020-09-27] MEDS ORDERED: Sodium Chloride 0.9% 1,000 ML IV SCH (11:15)
[2020-09-27] MEDS ORDERED: Dextrose 50% Abboject 50 ML SYRINGE ONE (11:41)
[2020-09-27] MEDS: Norepinephrine 8 MG/0.9% NS 250 ML IVPB SCH (12:14)
--- NOTE | 2020-09-27 13:27 | CT ---
CT OF THE ABDOMEN AND PELVIS WITHOUT IV CONTRAST INDICATION: Abdominal Pain COMPARISON: None FINDINGS: The lack of IV contrast limits evaluation of the solid organs of the abdomen and pelvis. Water solubl e enteric contrast was administered through the patient's percutaneous gastrostomy tube. ABDOMEN: Lung bases: There is prominent consolidation within the lung bases, right greater than left with smal l bilateral pleural effusions. There is a [id number] cardiomegaly. There is a small hiatal hernia. Liver: No focal lesion. Gallbladder: Normal appearing. Pancreas: Normal. Adrenal glands: Normal. Spleen: Normal. Kidneys and ureters: Cystic abnormalities of the left kidney are stable. Right kidney is normal-appea ring. Vasculature: There are mild vascular calcifications seen involving the visualized vasculature. Lymph nodes:No lymphadenopathy. Free fluid in abdomen:No free fluid is evident. PELVIS: Small and large bowel: There is a percutaneous gastrostomy tube centered within the subcutaneous tiss ues overlying the left upper quadrant of the abdomen and just cephalad to the well-formed PEG tube stomal site. There is gas traversing the PEG tube stomal site. There is extensive gas and inflammator y reticulation involving the subcutaneous fat of the anterior abdominal wall consistent with panniculitis. The subcutaneous gas and contrast is seen collecting along the margins of the percutane ous gastrostomy tube stomal site and extending along the left lateral and left lateral lower abdominal wall. Appendix:Normal. Bladder: Decompressed Hansen catheter. Rectal and perirectal soft tissues:Rectal tube. Reproductive structures: Normal. Free fluid in pelvis: No free fluid is evident. Lymphadenopathy pelvis: No lymphadenopathy is evident. Osseous structures: No acute osseous abnormality. No destructive osteolytic or osteoblastic lesion i s identified. There is scattered degenerative and osteoarthritic changes. Soft tissues:As above. Mild anasarca. IMPRESSION: 1. Dislodgment of the percutaneous gastrostomy tube with extensive subcutaneous gas, panniculitis and contrast present within the subcutaneous fat of the upper anterior and left lower quadrant abdominal wall. 2. Bibasilar pneumonia. 3. Left renal cysts. 4. Findings discussed with Dr. Cerda at 1:25 PM on September 19, 2020. CODE CR Transcribed Date/Time: 09/27/2020 1:36 PM
[2020-09-27] MEDS ORDERED: Iopamidol 370 76% 50 ML VIAL FS ONE (13:28)
[2020-09-27] MEDS ORDERED: Midazolam HCl 5 mg/5 ml Vial ONE (13:51)
[2020-09-27] MEDS ORDERED: Fentanyl 100 MCG/2 ML VIAL ONE (13:51)
[2020-09-27] MEDS ORDERED: Sodium Chloride 0.9% 20 ML ONE (14:13)
--- NOTE | 2020-09-27 14:27 | PRG ---
DATE OF SERVICE: 09/27/2020 SUBJECTIVE: Pete Hogan is seen today at the request of Dr. Mccormack. The patient had COVID pneumonia recovered, but was readmitted due to COPD exacerbation. He required ventilator support, and on 09/20/2020, placed a tracheostomy tube and a PEG tube. The patient is morbidly obese, 6 feet tall, 335 pounds, 45 BMI. The patient has been doing well, but today was noted to be becoming septic. His blood pressure dropped. Nurses noted brown-colored material out of his PEG tube. They were concerned that it might be in his colon, although the PEG tube function previously this had been as expected. He was placed on vasopressors. Examination reveals that his PEG tube is in place. He does have brownish content in the PEG tube. He does have tenderness in left upper quadrant with induration and fullness in the skin and subcutaneous tissues. Stat CAT scan with oral contrast per G-tube was ordered. This oral contrast was instilled at the time of scanning and not volume as prior. This CAT scan revealed the G-tube to be in the subcutaneous tissue, well-formed tract in the stomach, and extensive subcutaneous tissue gas and inflammation laterally. ASSESSMENT AND PLAN: Dislodged PEG tube in the subcutaneous tissue. There is no evidence of intraabdominal leakage or peritonitis. It apparently has a well-formed tract at the 7-day ivonne. He, however, does have subcutaneous tissue inflammation and resulting in sepsis. We would recommend emergent debridement of skin and subcutaneous tissue and placement of the PEG tube, which might require an EGD or fluoroscopy. We will plan this today. I have tried to call his family, but there is no response and no return on the answering machine as I have left my cell phone. He may need emergent surgery with 2 daughters' signature. Job ID: [id number]
[2020-09-27 14:45] LABS: Hemoglobin 11.2 g/dL (14.0-18.0); Mean Corpuscular Hemoglobin 29.1 pg (27.0-31.0); Mean Corpuscular Volume 90.9 fL (78.0-98.0); Mean Platelet Volume 11.3 fL (7.4-10.4); Platelet Count 101 thou/uL (130-400); RBC Distribution Width 14.4 % (11.5-14.5); Red Blood Cell (RBC) Count 3.83 mill/uL (4.70-6.10)
[2020-09-27 14:57] LABS: Band 60 % (5-11); Eosinophils 1 % (0-10); Lymphocytes 7 % (21-51); MDiff Complete? YES; Metamyelocyte 2 % (0-0); Monocytes 6 % (0-10); Neutrophil 16 % (42-75); Platelet Morphology Comment Appears Decreased; Polychromasia SLIGHT = 2-3 cells (100X) (0-2/hpf); Reactive Lymphocytes 8 % (0-10); White Blood Cell (WBC) Count 5.9 thou/uL (4.8-10.8)
--- NOTE | 2020-09-27 16:36 | PDOC.HOSPP ---
- Subjective Encounter Date: 09/27/20 Encounter Time: 10:30 Subjective: Patient seen in follow-up for Covid pneumonia. No new complaints. - Objective Vital Signs & Weight: Vital Signs (12 hours) Temp Pulse Resp BP Pulse Ox 09/27/20 16:32 108 H 09/27/20 12:00 99.4 F 30 H 09/27/20 10:50 112 H 100/58 L 09/27/20 10:49 103 H 29 H 95 09/27/20 10:00 29 H 09/27/20 09:33 113 H 09/27/20 08:00 102.2 F H 29 H 94 L 09/27/20 07:00 113 H 97/57 L 09/27/20 06:59 113 H 32 H 96 09/27/20 06:00 28 H 09/27/20 05:00 99.3 F Weight Admit Weight 321 lb 3.416 oz Weight 335 lb 15.752 oz Most Recent Monitor Data Heart Rate from ECG 118 NIBP 126/79 NIBP BP-Mean 94 Respiration from ECG 27 SpO2 94 I&O: 09/26/20 09/27/20 09/28/20 06:59 06:59 06:59 Intake Total 3017.0 3324 1200 Output Total 2340 1195 550 Balance 677.0 2129 650 Result Diagrams: 09/27/20 14:20 09/27/20 04:00 Additional Labs: Accuchecks 09/27/20 09/27/20 09/27/20 12:01 11:39 03:20 POC Glucose 122 H 60 L 102 H 09/26/20 09/26/20 21:11 16:28 POC Glucose 97 107 H Labs and MAR reviewed by me EKG Reviewed by me: Yes (Leona correa on telemetry) Hospitalist ROS - Review of Systems Constitutional: reports: fever. denies: chills, sweats, weakness, malaise Cardiovascular: denies: chest pain, palpitations, orthopnea, paroxysmal noc. dyspnea, edema, light headedness - Medication Medications: Active Medications Generic Name Dose Route Start Last Admin Trade Name Freq PRN Reason Stop Dose Admin Albuterol/Ipratropium 3 ml 09/10/20 10:30 09/27/20 14:36 Ipratropium/Albuterol Sulfate 3 Ml Neb NEB Not Given [id number] ALIYAH Atorvastatin Calcium 40 mg 09/08/20 21:00 09/26/20 19:25 Atorvastatin Calcium 40 Mg Tab PO 40 mg HS ALIYAH Administration Carvedilol 25 mg 09/08/20 08:00 09/27/20 09:10 Carvedilol 25 Mg Tab PO Not Given BID-WM AILYAH Diltiazem HCl 90 mg 09/08/20 21:00 09/27/20 09:11 Diltiazem Hcl Sr 90 Mg Capsule PO Not Given BID ALIYAH Enoxaparin Sodium 40 mg 09/24/20 21:00 09/26/20 19:26 Enoxaparin Sodium 40 Mg/0.4 Ml Syringe SC 40 mg 2100 ALIYAH Administration Hydralazine HCl 20 mg 09/16/20 07:55 09/22/20 05:12 Hydralazine 20 Mg/Ml Vial SLOW IVP 20 mg Q6H PRN Administration SBP>180 Insulin Glargine 30 units/ 0.3 mls @ 0.1 mls/hr 09/13/20 21:00 09/27/20 08:43 Miscellaneous Medication SC Not Given BID ALIYAH Levofloxacin 750 mg/ Device 150 mls @ 100 mls/hr 09/17/20 21:00 09/26/20 19:29 IVPB 150 mls Q24HR ALIYAH Administration Dextrose/Water 1,000 mls @ 50 mls/hr 09/19/20 08:15 09/26/20 17:09 D5w IV 1,000 mls .Q20H ALIYAH Administration Meropenem 2 gm/ Miscellaneous 100 mls @ 200 mls/hr 09/19/20 17:00 09/27/20 08:43 Medication 1 each/ Sodium IVPB 100 mls Chloride 0100,0900,1700 ALIYAH Administration Vancomycin HCl 1 gm/ Device 200 mls @ 200 mls/hr 09/26/20 10:00 09/27/20 08: 53 IVPB 200 mls 1000,2200 ALIYAH Administration Micafungin Sodium 100 mg/ 100 mls @ 100 mls/hr 09/26/20 10:00 09/27/20 09:40 Sodium Chloride IVPB 100 mls 1000 ALIYAH Administration Norepinephrine Bitartrate 250 mls @ 0 mls/hr 09/27/20 12:15 09/27/20 12:14 Levophed IVPB 250 mls INF ALIYAH Administration Protocol Titrate Insulin Human Regular 0 units 09/08/20 20:03 09/25/20 16:48 Insulin Regular 300 Units/3 Ml Vial SC 3 units .AGGRESSIVE SLIDING PRN Administration Aggressive Correctional Scale Methylprednisolone Sodium Succinate 20 mg 09/16/20 21:00 09/27/20 08:41 Methylprednisolone Sod Succ 40 Mg Vial IVP 20 mg BID ALIYAH Administration Metoclopramide HCl 10 mg 09/14/20 18:50 09/22/20 03:14 Metoclopramide Hcl 10 Mg/2 Ml Vial IVP 10 mg Q6H PRN Administration Nausea/Vomiting Sodium Chloride 10 ml 09/09/20 09:00 09/27/20 08:44 Flush - Normal Saline 10 Ml Syringe IVF 10 ml Q12HR ALIYAH Administration Tamsulosin HCl 0.4 mg 09/09/20 09:00 09/27/20 08:41 Tamsulosin Hcl 0.4 Mg Cap PO 0.4 mg DAILY ALIYAH Administration Hospitalist Exam Vitals: Vital Signs (12 hours) Temp Pulse Resp BP Pulse Ox 09/27/20 16:32 108 H 09/27/20 12:00 99.4 F 30 H 09/27/20 10:50 112 H 100/58 L 09/27/20 10:49 103 H 29 H 95 09/27/20 10:00 29 H 09/27/20 09:33 113 H 09/27/20 08:00 102.2 F H 29 H 94 L 09/27/20 07:00 113 H 97/57 L 09/27/20 06:59 113 H 32 H 96 09/27/20 06:00 28 H 09/27/20 05:00 99.3 F Weight Admit Weight 321 lb 3.416 oz Weight 335 lb 15.752 oz Most Recent Monitor Data Heart Rate from ECG 118 NIBP 126/79 NIBP BP-Mean 94 Respiration from ECG 27 SpO2 94 General Appearance: awake alert ENT: normocephalic atraumatic Heart: irregular Respiratory: CTAB Skin: no rashes Psychiatric: normal affect Hosp A/P - Plan Hosp A/P (1) Acute respiratory failure with hypoxia Code(s): J96.01 - ACUTE RESPIRATORY FAILURE WITH HYPOXIA Status: Acute (2) Pneumonia due to 2019-nCoV Code(s): U07.1 - COVID-19; J12.89 - OTHER VIRAL PNEUMONIA Status: Acute (3) Atrial fibrillation with rapid ventricular response Code(s): I48.91 - UNSPECIFIED ATRIAL FIBRILLATION Status: Acute (4) CHF exacerbation Code(s): I50.9 - HEART FAILURE, UNSPECIFIED Status: Acute (5) COPD exacerbation Code(s): J44.1 - CHRONIC OBSTRUCTIVE PULMONARY DISEASE W (ACUTE) EXACERBATION Status: Acute - Plan Patient had tracheostomy and PEG tube. Continue meropenem. Cardizem for A. fib. Discharge to LTAC when bed available.
[2020-09-27] MEDS: Dextrose 5% in Water 1,000 ML IV SCH (17:35)
[2020-09-27] MEDS: Sodium Chloride 0.9% 1,000 ML IV SCH (17:35)
--- NOTE | 2020-09-27 19:47 | OP ---
DATE OF PROCEDURE: 09/27/2020 PREOPERATIVE DIAGNOSES: Morbid obesity, chronic obstructive pulmonary disease, recovering from COVID illness in remote past, respiratory dependency, tracheostomy status, status post PEG tube 7 days ago, dislodged PEG tube in the rectus sheath with sepsis. POSTOPERATIVE DIAGNOSES: Morbid obesity, chronic obstructive pulmonary disease, recovering from COVID illness in remote past, respiratory dependency, tracheostomy status, status post PEG tube 7 days ago, dislodged PEG tube in the rectus sheath with sepsis. PROCEDURES PERFORMED: Incision and drainage of old PEG tube site, pulse irrigation of rectus sheath, replacement of gastrostomy tube in the old PEG tube site, exiting new skin exit site medially. Completion endoscopy to assure gastrostomy tube in the gastric lumen. ANESTHESIA: General. DESCRIPTION OF PROCEDURE: The patient was taken to the operating room, where under general anesthesia, old gastrostomy tube was removed. Abdomen was prepared with ChloraPrep and draped in routine fashion. Incision was made about the old PEG tube site, carried down through skin and subcutaneous tissue. There was some debris and inflammation of the subcutaneous tissue. This was debrided sharply, irrigated, and then just below the anterior rectus fascia, there was brownish discharge. This was copiously irrigated with pulse physician office rep at 3 L. PEG tube then placed through a more medial entry site, tunneled and placed to the old site and balloon inflated. Completion endoscopy confirmed gastrostomy tube in the gastric lumen. Wound left open. Wound Care to place a wound VAC. The patient tolerated the procedure well. Job ID: [id number]
[2020-09-27] MEDS: Atorvastatin Calcium 40 MG TAB PO SCH (20:18)
[2020-09-27] MEDS: Enoxaparin Sodium 40 MG/0.4 ML SYRINGE SC SCH (20:19)
[2020-09-27] MEDS ORDERED: Fentanyl CADD 100 ML ONE (20:29)
[2020-09-27] MEDS: Fentanyl CADD 100 ML IV SCH (20:31)
[2020-09-28] MEDS: Sodium Chloride 0.9% 1,000 ML IV SCH ×2 (01:44→10:07)
[2020-09-28] MEDS: Meropenem 2 GM, Admixture Fee 1 EACH in Sodium Chloride 0.9% 100 ML IVPB SCH ×3 (01:56→17:43)
[2020-09-28] MEDS ORDERED: Sodium Chloride 0.9% 500 ML IVPB SCH (05:00)
[2020-09-28 05:50] LABS: Band 53 % (5-11); Hemoglobin 9.9 g/dL (14.0-18.0); Large Platelets SLIGHT; Lymphocytes 7 % (21-51); MDiff Complete? YES; Mean Corpuscular HGB CONC 32.1 g/dL (32.0-36.0); Mean Corpuscular Hemoglobin 28.9 pg (27.0-31.0); Mean Corpuscular Volume 90.1 fL (78.0-98.0); Mean Platelet Volume 12.4 fL (7.4-10.4); Metamyelocyte 1 % (0-0); Monocytes 3 % (0-10); Neutrophil 36 % (42-75); Platelet Count 103 thou/uL (130-400); Platelet Morphology Comment Appears Decreased; RBC Distribution Width 14.4 % (11.5-14.5); Red Blood Cell (RBC) Count 3.41 mill/uL (4.70-6.10); Toxic Granulation SLIGHT; White Blood Cell (WBC) Count 7.6 thou/uL (4.8-10.8)
--- NOTE | 2020-09-28 06:16 | PRG ---
DATE OF SERVICE: 09/27/2020 SUBJECTIVE: Mr. Hogan's PEG tube ended up in his rectus sheath, apparently today. When the nurse aspirated, she thought it was contents coming back through his PEG tube. It turns out it was all feeds that were in his rectus sheath. He started to develop clinical signs of sepsis. Yesterday, he was doing great on a trach collar. He went back to the OR and was washed out today. OBJECTIVE: VITAL SIGNS: Heart rate is now 106. He is mechanically ventilated. Blood pressure is 87/56, respiratory rates in the 20s. He was placed on Levophed this morning. LUNGS: Clear. HEART: Regular rhythm. ABDOMEN: Soft postoperatively. EXTREMITIES: Without edema. LABORATORY DATA: White count 5.9, hemoglobin 11.2, platelets 101 peripheral smear this morning, interestingly he only had 1% yesterday. Sodium 131, potassium 3.9, chloride 94, bicarb 27, BUN 20, creatinine 0.44. IMPRESSION: 1. Respiratory failure with chronic obstructive pulmonary disease exacerbation, now with trach and PEG. 2. Dislodged PEG with clinical sepsis likely from that leading to mechanical ventilation after several days of doing well on a trach collar. 3. Morbid obesity. 4. Deconditioning. 5. Recent COVID-19 infection leading to his deconditioning on top of his pre-existing deconditioning with his chronic obstructive pulmonary disease. PLAN: Continue supportive care, antimicrobial therapy, wound VAC and gradual attempts at weaning again. We probably need to continue the meropenem for now. The Levaquin has been going for 10 days, we will discontinue that. Hopefully, the washout eliminates the septic source. CRITICAL CARE TIME: 40 minutes. Job ID: [id number]
[2020-09-28 06:24] LABS: Anion Gap 9 mmol/L (10-20); BUN (Urea Nitrogen) 15 mg/dL (8.4-25.7); Calc. Creatinine Clearance 322 mL/min (70-130); Calcium 7.7 mg/dL (7.8-10.44); Carbon Dioxide 29 mmol/L (23-31); Chloride 98 mmol/L (98-107); Glucose 97 mg/dL (83-110); Potassium 3.3 mmol/L (3.5-5.1); Sodium 133 mmol/L (136-145)
[2020-09-28] MEDS ORDERED: Potassium Bicarbonate/Cit Ac 20 MEQ TAB PER TUBE SCH (07:45)
--- NOTE | 2020-09-28 08:21 | PRG ---
DATE OF SERVICE: 09/28/2020 SUBJECTIVE: The patient remains on mechanical ventilation through a tracheostomy. He had a PEG tube replaced yesterday. OBJECTIVE: VITAL SIGNS: Temperature 98.7, pulse 114, blood pressure 120/55, O2 saturation 95%. 24-hour intake 4252, output 1529. HEENT: Unremarkable. NECK: No adenopathy or JVD. Trach in good position. LUNGS: Clear. CARDIAC: S1 and S2. Regular. ABDOMEN: Soft. EXTREMITIES: Edematous. LABORATORY DATA: White blood cell count 7.6, hematocrit 30.7, and platelet count 103. Sodium 133, potassium 3.3, chloride 98, CO2 29, BUN 15, creatinine 0.4, and glucose 97. ASSESSMENT: 1. Recent COVID-19 infection. 2. Acute respiratory failure. 3. Chronic obstructive pulmonary disease. 4. Status post trach and PEG. 5. Morbid obesity. PLAN: 1. The patient is currently on meropenem, Micafungin, and vancomycin. His most recent cultures have not grown out anything. If cultures remain sterile tomorrow then consider discontinuing vancomycin. We will probably stop meropenem after tomorrow as it would have been 10 days. 2. I have decreased the respiratory rate on the vent down to 6. 3. Decrease IV fluid rate as the patient is grossly volume overloaded. Job ID: [id number]
[2020-09-28] MEDS: Tamsulosin HCl 0.4 MG CAP PO SCH (10:07)
[2020-09-28] MEDS: Diltiazem HCl SR 90 mg Capsule PO SCH ×2 (10:09→21:26)
[2020-09-28] MEDS: Carvedilol 25 MG TAB PO SCH ×2 (10:09→17:43)
[2020-09-28] MEDS: methylPREDNISolone Sod Succ 40 MG VIAL IVP SCH (10:10)
[2020-09-28] MEDS: Insulin Glargine 30 UNITS in Pre-Filled Syringe 1 EACH SC SCH ×2 (10:11→21:27)
[2020-09-28] MEDS: Pantoprazole 40 MG VIAL IVP SCH (10:11)
[2020-09-28] MEDS: Vancomycin 1 GM in Premix Bag 1 BAG IVPB SCH ×2 (10:22→21:31)
[2020-09-28] MEDS: Micafungin 100 MG in Sodium Chloride 0.9% 100 ML IVPB SCH (11:02)
[2020-09-28] MEDS: Norepinephrine 8 MG/0.9% NS 250 ML IVPB SCH (12:54)
[2020-09-28] MEDS ORDERED: Acetaminophen 325 MG TAB PO PRN (14:08)
[2020-09-28] MEDS: Insulin Regular 300 UNITS/3 ML VIAL SC PRN (18:07)
--- NOTE | 2020-09-28 20:00 | PDOC.HOSPP ---
- Subjective Encounter Date: 09/28/20 Encounter Time: 14:00 Subjective: Pt seen for followup re: peritonitis. He is awake, denies chest pain. - Objective Vital Signs & Weight: Vital Signs (12 hours) Temp Pulse Pulse Pulse Resp BP BP 09/28/20 18:44 101 H 09/28/20 18:00 22 H 09/28/20 16:00 99.1 F 26 H 09/28/20 14:55 100 09/28/20 14:54 100 22 H 09/28/20 13:48 28 H 09/28/20 12:00 22 H 09/28/20 11:00 98.8 F 09/28/20 10:43 103 H 23 H 09/28/20 10:41 113 H 09/28/20 10:22 105 H 104 H 108/51 L 94/58 L 09/28/20 10:00 27 H 09/28/20 08:00 21 H Pulse Ox Pulse Ox Pulse Ox 09/28/20 18:44 09/28/20 18:00 09/28/20 16:00 09/28/20 14:55 09/28/20 14:54 96 09/28/20 13:48 09/28/20 12:00 09/28/20 11:00 09/28/20 10:43 97 09/28/20 10:41 09/28/20 10:22 96 96 09/28/20 10:00 09/28/20 08:00 94 L Weight Admit Weight 321 lb 3.416 oz Weight 341 lb 0.882 oz Most Recent Monitor Data Heart Rate from ECG 97 NIBP 98/59 NIBP BP-Mean 72 Respiration from ECG 21 SpO2 99 I&O: 09/27/20 09/28/20 09/29/20 06:59 06:59 06:59 Intake Total 3324 4252.8 1647 Output Total 1195 1529 457 Balance 2129 2723.8 1190 Result Diagrams: 09/28/20 03:21 09/28/20 03:21 Additional Labs: Accuchecks 09/28/20 09/28/20 09/28/20 18:03 11:46 05:52 POC Glucose 159 H 112 H 100 09/27/20 20:16 POC Glucose 90 Reviewed labs and MAR Hospitalist ROS - Review of Systems Cardiovascular: denies: chest pain, palpitations, orthopnea, paroxysmal noc. dyspnea, edema, light headedness Skin: denies: rash, lesions, del, bruising - Medication Medications: Active Medications Generic Name Dose Route Start Last Admin Trade Name Freq PRN Reason Stop Dose Admin Albuterol/Ipratropium 3 ml 09/10/20 10:30 09/28/20 18:43 Ipratropium/Albuterol Sulfate 3 Ml Neb NEB 3 ml [id number] ALIYAH Administration Atorvastatin Calcium 40 mg 09/08/20 21:00 09/27/20 20:18 Atorvastatin Calcium 40 Mg Tab PO 40 mg HS ALIYAH Administration Carvedilol 25 mg 09/08/20 08:00 09/28/20 17:43 Carvedilol 25 Mg Tab PO 25 mg BID-WM ALIYAH Administration Diltiazem HCl 90 mg 09/08/20 21:00 09/28/20 10:09 Diltiazem Hcl Sr 90 Mg Capsule PO 90 mg BID ALIYAH Administration Enoxaparin Sodium 40 mg 09/24/20 21:00 09/27/20 20:19 Enoxaparin Sodium 40 Mg/0.4 Ml Syringe SC 40 mg 2100 ALIYAH Administration Hydralazine HCl 20 mg 09/16/20 07:55 09/22/20 05:12 Hydralazine 20 Mg/Ml Vial SLOW IVP 20 mg Q6H PRN Administration SBP>180 Insulin Glargine 30 units/ 0.3 mls @ 0.1 mls/hr 09/13/20 21:00 09/28/20 10:11 Miscellaneous Medication SC Not Given BID ALIYAH Meropenem 2 gm/ Miscellaneous 100 mls @ 200 mls/hr 09/19/20 17:00 09/28/20 17:43 Medication 1 each/ Sodium IVPB 100 mls Chloride 0100,0900,1700 ALIYAH Administration Fentanyl 100 mls @ 0 mls/hr 09/23/20 13:45 09/27/20 20:31 Fentanyl Cadd IV 10/23/20 13:45 100 mls INF ALIYAH Administration Protocol Per Protocol Vancomycin HCl 1 gm/ Device 200 mls @ 200 mls/hr 09/26/20 10:00 09/28/20 10:22 IVPB 200 mls 1000,2200 ALIYAH Administration Micafungin Sodium 100 mg/ 100 mls @ 100 mls/hr 09/26/20 10:00 09/28/20 11:02 Sodium Chloride IVPB 100 mls 1000 ALIYAH Administration Norepinephrine Bitartrate 250 mls @ 0 mls/hr 09/27/20 12:15 09/28/20 12:54 Levophed IVPB 250 mls INF ALIYAH Administration Protocol Titrate Sodium Chloride 1,000 mls @ 50 mls/hr 09/28/20 08:00 09/28/20 10:07 Normal Saline 0.9% IV 1,000 mls .Q20H ALIYAH Administration Insulin Human Regular 0 units 09/08/20 20:03 09/28/20 18:07 Insulin Regular 300 Units/3 Ml Vial SC 3 units .AGGRESSIVE SLIDING PRN Administration Aggressive Correctional Scale Methylprednisolone Sodium Succinate 20 mg 09/28/20 09:00 09/28/20 10:10 Methylprednisolone Sod Succ 40 Mg Vial IVP 20 mg DAILY ALIYAH Administration Metoclopramide HCl 10 mg 09/14/20 18:50 09/22/20 03:14 Metoclopramide Hcl 10 Mg/2 Ml Vial IVP 10 mg Q6H PRN Administration Nausea/Vomiting Pantoprazole Sodium 40 mg 09/28/20 09:00 09/28/20 10:11 Pantoprazole 40 Mg Vial IVP 40 mg DAILY ALIYAH Administration Sodium Chloride 10 ml 09/09/20 09:00 09/28/20 10:12 Flush - Normal Saline 10 Ml Syringe IVF 10 ml Q12HR ALIYAH Administration Tamsulosin HCl 0.4 mg 09/09/20 09:00 09/28/20 10:07 Tamsulosin Hcl 0.4 Mg Cap PO 0.4 mg DAILY ALIYAH Administration Hospitalist Exam Vitals: Vital Signs (12 hours) Temp Pulse Pulse Pulse Resp BP BP 09/28/20 18:44 101 H 09/28/20 18:00 22 H 09/28/20 16:00 99.1 F 26 H 09/28/20 14:55 100 09/28/20 14:54 100 22 H 09/28/20 13:48 28 H 09/28/20 12:00 22 H 09/28/20 11:00 98.8 F 09/28/20 10:43 103 H 23 H 09/28/20 10:41 113 H 09/28/20 10:22 105 H 104 H 108/51 L 94/58 L 09/28/20 10:00 27 H 09/28/20 08:00 21 H Pulse Ox Pulse Ox Pulse Ox 09/28/20 18:44 09/28/20 18:00 09/28/20 16:00 09/28/20 14:55 09/28/20 14:54 96 09/28/20 13:48 09/28/20 12:00 09/28/20 11:00 09/28/20 10:43 97 09/28/20 10:41 09/28/20 10:22 96 96 09/28/20 10:00 09/28/20 08:00 94 L Weight Admit Weight 321 lb 3.416 oz Weight 341 lb 0.882 oz Most Recent Monitor Data Heart Rate from ECG 97 NIBP 98/59 NIBP BP-Mean 72 Respiration from ECG 21 SpO2 99 General Appearance: awake alert Eye: anicteric sclera ENT: no oropharyngeal lesions ENT - other findings: trach Neck: supple Heart: irregular Respiratory: CTAB Gastrointestinal: soft Skin: no rashes Psychiatric: normal affect Hosp A/P - Plan Hosp A/P (1) Peritonitis Status: Acute (1) Acute respiratory failure with hypoxia Code(s): J96.01 - ACUTE RESPIRATORY FAILURE WITH HYPOXIA Status: Acute (2) Pneumonia due to 2019-nCoV Code(s): U07.1 - COVID-19; J12.89 - OTHER VIRAL PNEUMONIA Status: Acute (3) Atrial fibrillation with rapid ventricular response Code(s): I48.91 - UNSPECIFIED ATRIAL FIBRILLATION Status: Acute (4) CHF exacerbation Code(s): I50.9 - HEART FAILURE, UNSPECIFIED Status: Resolved (5) COPD exacerbation Code(s): J44.1 - CHRONIC OBSTRUCTIVE PULMONARY DISEASE W (ACUTE) EXACERBATION Status: Resolved - Plan Pt had peritoneal washout for tube feeds leaking into peritoneal cavity from dislodged PEG tube. He is on meropenem, micafungin and vancomycin. Patient had tracheostomy and PEG tube. Cardizem for A. fib.
[2020-09-28] MEDS: Atorvastatin Calcium 40 MG TAB PO SCH (21:26)
[2020-09-28] MEDS: Enoxaparin Sodium 40 MG/0.4 ML SYRINGE SC SCH (21:26)
[2020-09-29] MEDS: Insulin Regular 300 UNITS/3 ML VIAL SC PRN ×2 (00:46→05:31)
[2020-09-29] MEDS: Meropenem 2 GM, Admixture Fee 1 EACH in Sodium Chloride 0.9% 100 ML IVPB SCH (00:49)
[2020-09-29] MEDS: Sodium Chloride 0.9% 1,000 ML IV SCH (03:14)
[2020-09-29 04:08] LABS: Anisocytosis SLIGHT = 6-15 cells (100X) (0-5/hpf); Band 31 % (5-11); Hemoglobin 9.8 g/dL (14.0-18.0); Lymphocytes 9 % (21-51); MDiff Complete? YES; Mean Corpuscular HGB CONC 32.5 g/dL (32.0-36.0); Mean Corpuscular Hemoglobin 29.2 pg (27.0-31.0); Mean Corpuscular Volume 89.9 fL (78.0-98.0); Mean Platelet Volume 11.3 fL (7.4-10.4); Monocytes 3 % (0-10); Neutrophil 57 % (42-75); Platelet Count 106 thou/uL (130-400); Platelet Morphology Comment Appears Decreased; RBC Distribution Width 14.7 % (11.5-14.5); Red Blood Cell (RBC) Count 3.35 mill/uL (4.70-6.10); White Blood Cell (WBC) Count 8.5 thou/uL (4.8-10.8)
[2020-09-29 04:28] LABS: Anion Gap 10 mmol/L (10-20); BUN (Urea Nitrogen) 16 mg/dL (8.4-25.7); Calc. Creatinine Clearance 300 mL/min (70-130); Calcium 7.8 mg/dL (7.8-10.44); Carbon Dioxide 29 mmol/L (23-31); Chloride 98 mmol/L (98-107); Glucose 245 mg/dL (83-110); Potassium 3.5 mmol/L (3.5-5.1); Sodium 133 mmol/L (136-145)
[2020-09-29] MEDS ORDERED: Potassium Chloride 40 MEQ in Sodium Chloride 0.9% 250 ML 250 ML IVPB SCH (08:00)
--- NOTE | 2020-09-29 08:21 | PRG ---
DATE OF SERVICE: 09/29/2020 SUBJECTIVE: The patient remains on mechanical ventilation through a tracheostomy. He will actually wake up and try to interact by nodding and shaking his head. OBJECTIVE: VITAL SIGNS: Temperature 98.4, pulse 113, blood pressure 106/58. His last treat fever was on 09/27 of 102.2. HEENT: Exam is not changed. NECK: Tracheostomy is in good position. LUNGS: Fairly clear anteriorly. CARDIOVASCULAR: Slightly tachycardic. ABDOMEN: He has a wound VAC just left of his new PEG tube site. ABDOMEN: Obese. EXTREMITIES: Edematous throughout. LABORATORY DATA: Sodium 133, potassium 3.5, chloride 98, CO2 of 29, BUN 16, creatinine 0.5, glucose 245. Glucose is generally run in the 100 range. His white blood cell count 8.5, hematocrit 30, and platelet count 106. ASSESSMENT: 1. Status post trach and PEG for respiratory failure related to chronic obstructive pulmonary disease and COVID-19 infection back in July. 2. Morbid obesity. PLAN: Since it has been 10 days, we will go ahead and stop his meropenem. His cultures basically remain sterile. I will plan on stopping the vancomycin and micafungin after 5 days. We will try the spontaneous breathing trials on CPAP pressure support mode, but I do not think he is strong enough to be able to tolerate a T-tube or a trach collar at this time. Job ID: [id number]
--- NOTE | 2020-09-29 09:09 | PRG ---
DATE OF SERVICE: 09/29/2020 SUBJECTIVE: Mr. Hogan has no complaints today. No change overnight. He is being fed through his PEG tube. There is no PEG tube leakage. There is no leakage of tube feeds through the abdominal wounds or around the PEG tube site. ASSESSMENT: Replacement revision of PEG tube. PLAN: Discontinue the NG tube since he seems to be tolerating feeds through the new PEG. Job ID: [id number]
[2020-09-29] MEDS ORDERED: Digoxin 0.25 MG TAB PO SCH (09:30)
--- NOTE | 2020-09-29 10:14 | PDOC.EVN ---
Event Note - Event Note Event Note: Called to see wound with vac change. There is brownish significant drainage. No foul smell. G tube can be felt all the way to large opening in muscle. Plan hold TF. MARCELLUS POLLARD. Wound vac. May have to do tpn for now.
[2020-09-29] MEDS: Carvedilol 25 MG TAB PO SCH ×2 (10:16→16:32)
[2020-09-29] MEDS: Insulin Glargine 30 UNITS in Pre-Filled Syringe 1 EACH SC SCH ×2 (10:19→20:55)
[2020-09-29] MEDS: Pantoprazole 40 MG VIAL IVP SCH (10:27)
[2020-09-29] MEDS: methylPREDNISolone Sod Succ 40 MG VIAL IVP SCH (10:28)
[2020-09-29] MEDS: Micafungin 100 MG in Sodium Chloride 0.9% 100 ML IVPB SCH (10:36)
[2020-09-29] MEDS: Vancomycin 1 GM in Premix Bag 1 BAG IVPB SCH ×2 (10:39→21:35)
[2020-09-29] MEDS: Tamsulosin HCl 0.4 MG CAP PO SCH (10:45)
[2020-09-29] MEDS ORDERED: Digoxin 0.5 MG/2 ML AMP SLOW IVP SCH (10:45)
--- NOTE | 2020-09-29 17:00 | PDOC.HOSPP ---
- Subjective Encounter Date: 09/29/20 Encounter Time: 11:00 Subjective: Patient seen in follow-up for COVID-19 pneumonia. He is sleepy but arousable, did not answer questions. Could not complete review of systems. - Objective Vital Signs & Weight: Vital Signs (12 hours) Temp Pulse Resp Pulse Ox 09/29/20 16:00 28 H 09/29/20 15:04 109 H 29 H 97 09/29/20 14:00 26 H 09/29/20 12:00 97.7 F 28 H 09/29/20 10:55 103 H 09/29/20 10:53 114 H 37 H 95 09/29/20 10:51 115 H 09/29/20 10:00 29 H 09/29/20 08:00 33 H 95 09/29/20 07:14 103 H 09/29/20 07:13 119 H 31 H 95 09/29/20 07:00 99.9 F H Weight Admit Weight 321 lb 3.416 oz Weight 356 lb 11.327 oz Most Recent Monitor Data Heart Rate from ECG 104 NIBP 131/62 NIBP BP-Mean 85 Respiration from ECG 23 SpO2 99 I&O: 09/28/20 09/29/20 09/30/20 06:59 06:59 06:59 Intake Total 4252.8 3183 379 Output Total 1529 1047 365 Balance 2723.8 2136 14 Result Diagrams: 09/29/20 03:15 09/29/20 03:15 Additional Labs: Accuchecks 09/29/20 09/28/20 10:18 18:03 POC Glucose 129 H 159 H I reviewed patient's labs and MAR Hospitalist ROS - Review of Systems ROS unobtainable: due to mental status - Medication Medications: Active Medications Generic Name Dose Route Start Last Admin Trade Name Freq PRN Reason Stop Dose Admin Albuterol/Ipratropium 3 ml 09/10/20 10:30 09/29/20 15:04 Ipratropium/Albuterol Sulfate 3 Ml Neb NEB 3 ml [id number] ALIYAH Administration Atorvastatin Calcium 40 mg 09/08/20 21:00 09/28/20 21:26 Atorvastatin Calcium 40 Mg Tab PO 40 mg HS ALIYAH Administration Carvedilol 25 mg 09/08/20 08:00 09/29/20 16:32 Carvedilol 25 Mg Tab PO Not Given BID-[facility] Diltiazem HCl 90 mg 09/29/20 09:00 09/29/20 10:15 Diltiazem Hcl 30 Mg Tablet PO Not Given BID [facility] Enoxaparin Sodium 40 mg 09/24/20 21:00 09/28/20 21:26 Enoxaparin Sodium 40 Mg/0.4 Ml Syringe SC 40 mg 2100 ALIYAH Administration Hydralazine HCl 20 mg 09/16/20 07:55 09/22/20 05:12 Hydralazine 20 Mg/Ml Vial SLOW IVP 20 mg Q6H PRN Administration SBP>180 Insulin Glargine 30 units/ 0.3 mls @ 0.1 mls/hr 09/13/20 21:00 09/29/20 10:19 Miscellaneous Medication SC Not Given BID ALIYAH Fentanyl 100 mls @ 0 mls/hr 09/23/20 13:45 09/27/20 20:31 Fentanyl Cadd IV 10/23/20 13:45 100 mls INF ALIYAH Administration Protocol Per Protocol Vancomycin HCl 1 gm/ Device 200 mls @ 200 mls/hr 09/26/20 10:00 09/29/20 10:39 IVPB 200 mls 1000,2200 ALIYAH Administration Micafungin Sodium 100 mg/ 100 mls @ 100 mls/hr 09/26/20 10:00 09/29/20 10:36 Sodium Chloride IVPB 100 mls 1000 ALIYAH Administration Norepinephrine Bitartrate 250 mls @ 0 mls/hr 09/27/20 12:15 09/28/20 12:54 Levophed IVPB 250 mls INF ALIYAH Administration Protocol Titrate Sodium Chloride 1,000 mls @ 50 mls/hr 09/28/20 08:00 09/29/20 03:14 Normal Saline 0.9% IV 1,000 mls .Q20H ALIYAH Administration Insulin Human Regular 0 units 09/08/20 20:03 09/29/20 05:31 Insulin Regular 300 Units/3 Ml Vial SC 6 units .AGGRESSIVE SLIDING PRN Administration Aggressive Correctional Scale Methylprednisolone Sodium Succinate 20 mg 09/28/20 09:00 09/29/20 10:28 Methylprednisolone Sod Succ 40 Mg Vial IVP 20 mg DAILY ALIYAH Administration Metoclopramide HCl 10 mg 09/14/20 18:50 09/22/20 03:14 Metoclopramide Hcl 10 Mg/2 Ml Vial IVP 10 mg Q6H PRN Administration Nausea/Vomiting Pantoprazole Sodium 40 mg 09/28/20 09:00 09/29/20 10:27 Pantoprazole 40 Mg Vial IVP 40 mg DAILY ALIYAH Administration Sodium Chloride 10 ml 09/09/20 09:00 09/29/20 10:33 Flush - Normal Saline 10 Ml Syringe IVF 10 ml Q12HR ALIYAH Administration Tamsulosin HCl 0.4 mg 09/09/20 09:00 09/29/20 10:45 Tamsulosin Hcl 0.4 Mg Cap PO Not Given DAILY ALIYAH Hospitalist Exam Vitals: Vital Signs (12 hours) Temp Pulse Resp Pulse Ox 09/29/20 16:00 28 H 09/29/20 15:04 109 H 29 H 97 09/29/20 14:00 26 H 09/29/20 12:00 97.7 F 28 H 09/29/20 10:55 103 H 09/29/20 10:53 114 H 37 H 95 09/29/20 10:51 115 H 09/29/20 10:00 29 H 09/29/20 08:00 33 H 95 09/29/20 07:14 103 H 09/29/20 07:13 119 H 31 H 95 09/29/20 07:00 99.9 F H Weight Admit Weight 321 lb 3.416 oz Weight 356 lb 11.327 oz Most Recent Monitor Data Heart Rate from ECG 104 NIBP 131/62 NIBP BP-Mean 85 Respiration from ECG 23 SpO2 99 General Appearance: ill appearing ENT - other findings: Tracheostomy Heart: RRR Respiratory: CTAB Skin: no rashes Psychiatric: lethargic Hosp A/P - Plan 09/29/20:Patient is a pleasant 80-year-old gentleman who was admitted to the hospital on September 08, 2020 for acute hypoxic respiratory failure secondary to COVID-19 pneumonia as well as A. fib with RVR. He was initially treated with BiPAP, subsequently was intubated. He eventually underwent tracheostomy and PEG tube placement. Initial plan was to send him to LTAC. He was accepted to LTAC but was awaiting bed availability. However, he had to be taken to the operating room on September 27, 2020 for dislodged PEG tube in the rectus sheath with sepsis. He had the PEG tube replaced pulse irrigation of the rectus sheath. However, on September 29 it was found that the new PEG tube was dislodged as well. Hosp A/P (1) Peritonitis Status: Acute (1) Acute respiratory failure with hypoxia Code(s): J96.01 - ACUTE RESPIRATORY FAILURE WITH HYPOXIA Status: Acute (2) Pneumonia due to 2019-nCoV Code(s): U07.1 - COVID-19; J12.89 - OTHER VIRAL PNEUMONIA Status: Acute (3) Atrial fibrillation with rapid ventricular response Code(s): I48.91 - UNSPECIFIED ATRIAL FIBRILLATION Status: Acute (4) CHF exacerbation Code(s): I50.9 - HEART FAILURE, UNSPECIFIED Status: Resolved (5) COPD exacerbation Code(s): J44.1 - CHRONIC OBSTRUCTIVE PULMONARY DISEASE W (ACUTE) EXACERBATION Status: Resolved - Plan Patient's new PEG tube is dislodged as well, change IV fluids to D5 normal saline. Continue meropenem, micafungin and vancomycin. Status post tracheostomy and PEG tube. Jesusita suarez
[2020-09-29] MEDS: Dextrose 5 % And 0.9 % NaCl 1,000 ML IV SCH (17:31)
[2020-09-29] MEDS: Atorvastatin Calcium 40 MG TAB PO SCH (20:51)
[2020-09-29] MEDS: Enoxaparin Sodium 40 MG/0.4 ML SYRINGE SC SCH (20:52)
[2020-09-30 03:58] LABS: Anion Gap 11 mmol/L (10-20); BUN (Urea Nitrogen) 14 mg/dL (8.4-25.7); Calc. Creatinine Clearance 281 mL/min (70-130); Calcium 7.6 mg/dL (7.8-10.44); Carbon Dioxide 29 mmol/L (23-31); Chloride 101 mmol/L (98-107); Glucose 85 mg/dL (83-110); Potassium 3.6 mmol/L (3.5-5.1); Sodium 137 mmol/L (136-145)
[2020-09-30] MEDS ORDERED: Fentanyl CADD 100 ML ONE (07:39)
[2020-09-30] MEDS: Carvedilol 25 MG TAB PO SCH ×2 (08:59→16:32)
[2020-09-30] MEDS: Insulin Glargine 30 UNITS in Pre-Filled Syringe 1 EACH SC SCH ×2 (09:00→21:35)
[2020-09-30] MEDS: Tamsulosin HCl 0.4 MG CAP PO SCH (09:00)
[2020-09-30] MEDS: Micafungin 100 MG in Sodium Chloride 0.9% 100 ML IVPB SCH (09:07)
[2020-09-30] MEDS: Pantoprazole 40 MG VIAL IVP SCH (09:08)
[2020-09-30] MEDS: methylPREDNISolone Sod Succ 40 MG VIAL IVP SCH (09:09)
[2020-09-30] MEDS: Vancomycin 1 GM in Premix Bag 1 BAG IVPB SCH (10:32)
--- NOTE | 2020-09-30 11:16 | PRG ---
DATE OF SERVICE: 09/30/2020 SUBJECTIVE: The patient remains on mechanical ventilation through tracheostomy. PHYSICAL EXAMINATION: VITAL SIGNS: His heart rate is 91, blood pressure 87/44, O2 saturations 96%. Currently on SIMV rate 6, tidal volume 500, PEEP 5, pressure support 10, FiO2 of 45%. HEENT: Unremarkable except for an NG tube in his left naris. NECK: Has a tracheostomy in place which is clean. CARDIAC: S1 and S2, regular. LUNGS: Diminished breath sounds bilaterally. ABDOMEN: Soft, obese, nontender. EXTREMITIES: Edematous throughout. LABORATORY DATA: White blood cell count 8.5, hematocrit 30, and platelet count 106. Sodium 137, potassium 3.6, chloride 101, CO2 of 29, BUN 14, creatinine 0.5, glucose 85. ASSESSMENT: 1. Status post trach and PEG for acute respiratory failure related to chronic obstructive pulmonary disease and COVID-19 infection. 2. Morbid obesity. PLAN: His meropenem was stopped yesterday. His vancomycin and micafungin can probably stop soon. I do not think he is weanable at this time due to his high minute ventilation. His prognosis remains very poor. Job ID: [id number]
[2020-09-30] MEDS: Dextrose 50% Abboject 50 ML SYRINGE ONE (11:27)
--- NOTE | 2020-09-30 11:35 | PDOC.HOSPP ---
- Subjective Encounter Date: 09/30/20 non-verbal (On the vent) - Objective Vital Signs & Weight: Vital Signs (12 hours) Temp Pulse BP 09/30/20 10:48 87 87/44 L 09/30/20 08:05 108 H 81/46 L 09/30/20 04:00 97.6 F 09/30/20 03:02 114 H 09/30/20 00:00 98.8 F Weight Admit Weight 321 lb 3.416 oz Weight 4.811 oz Most Recent Monitor Data Heart Rate from ECG 89 NIBP 120/67 NIBP BP-Mean 84 Respiration from ECG 29 SpO2 96 I&O: 09/29/20 09/30/20 10/01/20 06:59 06:59 06:59 Intake Total 3183 2486.6 Output Total 1047 1621 Balance 2136 865.6 Result Diagrams: 09/29/20 03:15 09/30/20 03:15 Additional Labs: Accuchecks 09/29/20 09/29/20 23:44 16:52 POC Glucose 126 H 73 Hospitalist ROS - Medication Medications: Active Medications Generic Name Dose Route Start Last Admin Trade Name Freq PRN Reason Stop Dose Admin Albuterol/Ipratropium 3 ml 09/10/20 10:30 09/30/20 10:44 Ipratropium/Albuterol Sulfate 3 Ml Neb NEB 3 ml [id number] ALIYAH Administration Atorvastatin Calcium 40 mg 09/08/20 21:00 09/29/20 20:51 Atorvastatin Calcium 40 Mg Tab PO 40 mg HS ALIYAH Administration Carvedilol 25 mg 09/08/20 08:00 09/30/20 08:59 Carvedilol 25 Mg Tab PO Not Given BID-WM ALIYAH Diltiazem HCl 90 mg 09/29/20 09:00 09/30/20 09:00 Diltiazem Hcl 30 Mg Tablet PO Not Given BID ALIYAH Enoxaparin Sodium 40 mg 09/24/20 21:00 09/29/20 20:52 Enoxaparin Sodium 40 Mg/0.4 Ml Syringe SC 40 mg 2100 ALIYAH Administration Hydralazine HCl 20 mg 09/16/20 07:55 09/22/20 05:12 Hydralazine 20 Mg/Ml Vial SLOW IVP 20 mg Q6H PRN Administration SBP>180 Insulin Glargine 30 units/ 0.3 mls @ 0.1 mls/hr 09/13/20 21:00 09/30/20 09:00 Miscellaneous Medication SC Not Given BID ALIYAH Fentanyl 100 mls @ 0 mls/hr 09/23/20 13:45 09/27/20 20:31 Fentanyl Cadd IV 10/23/20 13:45 100 mls INF ALIYAH Administration Protocol Per Protocol Vancomycin HCl 1 gm/ Device 200 mls @ 200 mls/hr 09/26/20 10:00 09/30/20 10:32 IVPB 200 mls 1000,2200 ALIYAH Administration Micafungin Sodium 100 mg/ 100 mls @ 100 mls/hr 09/26/20 10:00 09/30/20 09:07 Sodium Chloride IVPB 100 mls 1000 ALIYAH Administration Norepinephrine Bitartrate 250 mls @ 0 mls/hr 09/27/20 12:15 09/28/20 12:54 Levophed IVPB 250 mls INF ALIYAH Administration Protocol Titrate Dextrose/Sodium Chloride 1,000 mls @ 50 mls/hr 09/29/20 17:15 09/29/20 17:31 D5 0.9% Ns IV 1,000 mls .Q20H ALIYAH Administration Insulin Human Regular 0 units 09/08/20 20:03 09/29/20 05:31 Insulin Regular 300 Units/3 Ml Vial SC 6 units .AGGRESSIVE SLIDING PRN Administration Aggressive Correctional Scale Methylprednisolone Sodium Succinate 20 mg 09/28/20 09:00 09/30/20 09:09 Methylprednisolone Sod Succ 40 Mg Vial IVP 20 mg DAILY ALIYAH Administration Metoclopramide HCl 10 mg 09/14/20 18:50 09/22/20 03:14 Metoclopramide Hcl 10 Mg/2 Ml Vial IVP 10 mg Q6H PRN Administration Nausea/Vomiting Pantoprazole Sodium 40 mg 09/28/20 09:00 09/30/20 09:08 Pantoprazole 40 Mg Vial IVP 40 mg DAILY ALIYAH Administration Sodium Chloride 10 ml 09/09/20 09:00 09/30/20 09:09 Flush - Normal Saline 10 Ml Syringe IVF 10 ml Q12HR ALIYAH Administration Tamsulosin HCl 0.4 mg 09/09/20 09:00 09/30/20 09:00 Tamsulosin Hcl 0.4 Mg Cap PO Not Given DAILY [facility] Hospitalist Exam Vitals: Vital Signs (12 hours) Temp Pulse BP 09/30/20 10:48 87 87/44 L 09/30/20 08:05 108 H 81/46 L 09/30/20 04:00 97.6 F 09/30/20 03:02 114 H 09/30/20 00:00 98.8 F Weight Admit Weight 321 lb 3.416 oz Weight 4.811 oz Most Recent Monitor Data Heart Rate from ECG 89 NIBP 120/67 NIBP BP-Mean 84 Respiration from ECG 29 SpO2 96 ENT: normocephalic atraumatic Neck: supple Respiratory: normal chest expansion, no tachypnea Gastrointestinal: soft Extremities: no cyanosis, no clubbing Hosp A/P - Plan 09/29/20:Patient is a pleasant 80-year-old gentleman who was admitted to the hospital on September 08, 2020 for acute hypoxic respiratory failure secondary to COVID-19 pneumonia as well as A. fib with RVR. He was initially treated with BiPAP, subsequently was intubated. He eventually underwent tracheostomy and PEG tube placement. Initial plan was to send him to LTAC. He was accepted to LTAC but was awaiting bed availability. However, he had to be taken to the operating room on September 27, 2020 for dislodged PEG tube in the rectus sheath with sepsis. He had the PEG tube replaced pulse irrigation of the rectus sheath. However, on September 29 it was found that the new PEG tube was dislodged as well. 09/30: The patient appears to be resting comfortably on the vent. Family member at bedside reported that the patient was waking up and responding to them. He remains on antibiotics for his recent abdominal infection. Also on micafungin for Marisel isolated in the sputum. Hosp A/P (1) Peritonitis Status: Acute (1) Acute respiratory failure with hypoxia Code(s): J96.01 - ACUTE RESPIRATORY FAILURE WITH HYPOXIA Status: Acute (2) Pneumonia due to 2019-nCoV Code(s): U07.1 - COVID-19; J12.89 - OTHER VIRAL PNEUMONIA Status: Acute (3) Atrial fibrillation with rapid ventricular response Code(s): I48.91 - UNSPECIFIED ATRIAL FIBRILLATION Status: Acute (4) CHF exacerbation Code(s): I50.9 - HEART FAILURE, UNSPECIFIED Status: Resolved (5) COPD exacerbation Code(s): J44.1 - CHRONIC OBSTRUCTIVE PULMONARY DISEASE W (ACUTE) EXACERBATION Status: Resolved
[2020-09-30] MEDS: Dextrose 5 % And 0.9 % NaCl 1,000 ML IV SCH (14:55)
[2020-09-30] MEDS: Enoxaparin Sodium 40 MG/0.4 ML SYRINGE SC SCH (21:34)
[2020-09-30] MEDS: Lorazepam 2 MG/ML VIAL SLOW IVP PRN (21:35)
[2020-09-30] MEDS: Atorvastatin Calcium 40 MG TAB PO SCH (21:35)
[2020-09-30 21:36] LABS: Vancomycin, Trough 23.3 ug/mL
[2020-09-30] MEDS ORDERED: Vancomycin 1 GM in Premix Bag 1 BAG IVPB SCH (22:00)
[2020-10-01] MEDS: Lorazepam 2 MG/ML VIAL SLOW IVP PRN ×3 (02:26→09:19)
[2020-10-01] MEDS: Vancomycin HCl 750 MG in Sodium Chloride 0.9% 250 ML 250 ML IVPB SCH ×2 (03:40→16:12)
[2020-10-01 03:59] LABS: Anion Gap 11 mmol/L (10-20); BUN (Urea Nitrogen) 14 mg/dL (8.4-25.7); Calc. Creatinine Clearance 216 mL/min (70-130); Calcium 7.3 mg/dL (7.8-10.44); Carbon Dioxide 28 mmol/L (23-31); Chloride 103 mmol/L (98-107); Glucose 102 mg/dL (83-110); Potassium 3.5 mmol/L (3.5-5.1); Sodium 138 mmol/L (136-145)
[2020-10-01] MEDS ORDERED: Vancomycin HCl 750 MG in Sodium Chloride 0.9% 250 ML 250 ML IVPB SCH (04:00)
[2020-10-01 04:46] LABS: Anisocytosis SLIGHT = 6-15 cells (100X) (0-5/hpf); Band 27 % (5-11); Eosinophils 1 % (0-10); Hemoglobin 9.1 g/dL (14.0-18.0); Lymphocytes 9 % (21-51); MDiff Complete? YES; Mean Corpuscular HGB CONC 32.5 g/dL (32.0-36.0); Mean Corpuscular Hemoglobin 29.3 pg (27.0-31.0); Mean Corpuscular Volume 90.2 fL (78.0-98.0); Mean Platelet Volume 11.1 fL (7.4-10.4); Myelocyte 2 % (0-0); Neutrophil 61 % (42-75); Platelet Count 101 thou/uL (130-400); Platelet Morphology Comment Appears Decreased; RBC Distribution Width 14.5 % (11.5-14.5); Red Blood Cell (RBC) Count 3.09 mill/uL (4.70-6.10); White Blood Cell (WBC) Count 7.9 thou/uL (4.8-10.8)
[2020-10-01] MEDS ORDERED: Potassium Chloride 20 MEQ TAB PO SCH (06:30)
--- NOTE | 2020-10-01 08:51 | PRG ---
DATE OF SERVICE: 10/01/2020 Pete Hogan's G-tube had some problems on Thursday, 2 days ago and NG-tube was placed. I am here today to evaluate his G-tube. Previously, the G-tube had been dislodged and was lodged in the rectus sheath with feedings and all instilled in the rectus sheath causing inflammation, there was brownish material coming out. This was irrigated in the operating room, debrided. G-tube placed back in a more medial skin entry site and a wound VAC applied to the open wound. Over the weekend, the patient had some dysfunction of the G-tube again. This morning, Thursday, when I arrived, the G-tube balloon is not even inflated, the G-tube tip is in the subcutaneous tissues, it is not even in the stomach. The wound VAC was removed from the old G-tube site. The wound is evacuated of liquid material. The rectus sheath evacuated. I could feel a defect going to the gastrostomy tube. G-tube was placed back into the stomach, balloon inflated. Prior to replacing the NG tube, the balloon was inflated to 20 mL and maintained its competency and then it was replaced in the stomach and filled with 20 mL again. A confirmatory x-ray will be ordered. G-tube can be used. Wound Care will be called to replace the wound VAC. There is no evidence of a fistula to the colon. This brownish discharge is just from the rectus sheath inflammatory process. Job ID: [id number]
[2020-10-01] MEDS: Pantoprazole 40 MG VIAL IVP SCH (09:18)
[2020-10-01] MEDS: methylPREDNISolone Sod Succ 40 MG VIAL IVP SCH (09:18)
[2020-10-01] MEDS: Dextrose 5 % And 0.9 % NaCl 1,000 ML IV SCH (09:19)
[2020-10-01] MEDS: Micafungin 100 MG in Sodium Chloride 0.9% 100 ML IVPB SCH (09:20)
[2020-10-01] MEDS: Vancomycin 1 GM in Premix Bag 1 BAG IVPB SCH (09:55)
--- NOTE | 2020-10-01 10:16 | RAD ---
ABDOMEN 1 VIEW: HISTORY: G-tube contrast placement. COMPARISON: Abdomen or pelvis CT September 27, 2020. FINDINGS: Contrast is instilled through the gastrostomy tube. There is contrast, intraluminal in the stomach a nd proximal small bowel. IMPRESSION: Intraluminal contrast. POS: OFF
[2020-10-01] MEDS: Carvedilol 25 MG TAB PO SCH ×2 (10:29→16:28)
[2020-10-01] MEDS: Meropenem 2 GM, Admixture Fee 1 EACH in Sodium Chloride 0.9% 100 ML IVPB SCH ×2 (10:29→17:02)
[2020-10-01] MEDS: Insulin Glargine 30 UNITS in Pre-Filled Syringe 1 EACH SC SCH ×2 (10:29→21:32)
[2020-10-01] MEDS ORDERED: GASTROGRAFIN 30 ML BOT ONE (10:40)
--- NOTE | 2020-10-01 10:47 | RAD ---
PORTABLE CHEST 1 VIEW: DATE: 10/01/2020. TIME: 9:51 AM. HISTORY: Dyspnea. FINDINGS: Comparison is made with the exam of 09/26/2020. Tracheostomy tube remains in place. A nasogastric tube has been placed which cannot be traced all th e way to the abdomen, likely due to technical factors. An abdominal radiograph would be helpful. A right subclavian central line has been placed with tip in the projection of the SVC. The patient i s rotated to the right. No definite pneumothorax is seen. Interval worsening of left-sided opacitie s is seen. Right lung opacities are essentially unchanged. POS: OFF
[2020-10-01] MEDS: Tamsulosin HCl 0.4 MG CAP PO SCH (10:48)
[2020-10-01] MEDS ORDERED: Sodium Chloride 0.9% 1,000 ML IV SCH (11:15)
[2020-10-01] MEDS: Dextrose 50% Abboject 50 ML SYRINGE ONE (12:23)
--- NOTE | 2020-10-01 15:21 | PDOC.HOSPP ---
- Subjective Encounter Date: 10/01/20 Subjective: The patient's PEG tube was placed in his stomach correctly today by surgical team. - Objective Vital Signs & Weight: Vital Signs (12 hours) Temp Pulse Pulse Resp BP BP Pulse Ox 10/01/20 14:21 93 103/67 10/01/20 14:20 92 36 H 96 10/01/20 14:00 35 H 10/01/20 12:00 98.6 F 36 H 10/01/20 11:40 96 95/54 L 10/01/20 10:14 113 H 111/79 10/01/20 10:13 122 H 40 H 91 L 10/01/20 10:00 33 H 10/01/20 08:00 99.8 F H 40 H 92 L 10/01/20 07:20 107 H 118/71 10/01/20 07:18 105 H 36 H 90 L 10/01/20 04:00 97.8 F Pulse Ox 10/01/20 14:21 10/01/20 14:20 10/01/20 14:00 10/01/20 12:00 10/01/20 11:40 91 L 10/01/20 10:14 10/01/20 10:13 10/01/20 10:00 10/01/20 08:00 10/01/20 07:20 10/01/20 07:18 10/01/20 04:00 Weight Admit Weight 321 lb 3.416 oz Weight 350 lb 5.032 oz Most Recent Monitor Data Heart Rate from ECG 109 NIBP 80/51 NIBP BP-Mean 60 Respiration from ECG 37 SpO2 95 I&O: 09/30/20 10/01/20 10/02/20 06:59 06:59 06:59 Intake Total 2486.6 1549 30 Output Total 1621 1405 310 Balance 865.6 144 -280 Result Diagrams: 10/01/20 03:15 10/01/20 03:15 Additional Labs: Accuchecks 09/30/20 09/30/20 09/30/20 21:58 16:14 11:22 POC Glucose 118 H 93 52 L* 09/29/20 00:45 POC Glucose 205 H Hospitalist ROS - Medication Medications: Active Medications Generic Name Dose Route Start Last Admin Trade Name Freq PRN Reason Stop Dose Admin Albuterol/Ipratropium 3 ml 09/10/20 10:30 10/01/20 14:20 Ipratropium/Albuterol Sulfate 3 Ml Neb NEB 3 ml [id number] ALIYAH Administration Atorvastatin Calcium 40 mg 09/08/20 21:00 09/30/20 21:35 Atorvastatin Calcium 40 Mg Tab PO 40 mg HS ALIYAH Administration Carvedilol 25 mg 09/08/20 08:00 10/01/20 10:29 Carvedilol 25 Mg Tab PO 25 mg BID-WM ALIYAH Administration Diltiazem HCl 90 mg 09/29/20 09:00 10/01/20 10:29 Diltiazem Hcl 30 Mg Tablet PO 90 mg BID ALIYAH Administration Enoxaparin Sodium 40 mg 09/24/20 21:00 09/30/20 21:34 Enoxaparin Sodium 40 Mg/0.4 Ml Syringe SC 40 mg 2100 ALIYAH Administration Hydralazine HCl 20 mg 09/16/20 07:55 09/22/20 05:12 Hydralazine 20 Mg/Ml Vial SLOW IVP 20 mg Q6H PRN Administration SBP>180 Insulin Glargine 30 units/ 0.3 mls @ 0.1 mls/hr 09/13/20 21:00 10/01/20 10:29 Miscellaneous Medication SC Not Given BID ALIYAH Fentanyl 100 mls @ 0 mls/hr 09/23/20 13:45 09/27/20 20:31 Fentanyl Cadd IV 10/23/20 13:45 100 mls INF AILYAH Administration Protocol Per Protocol Micafungin Sodium 100 mg/ 100 mls @ 100 mls/hr 09/26/20 10:00 10/01/20 09:20 Sodium Chloride IVPB 100 mls 1000 ALIYAH Administration Norepinephrine Bitartrate 250 mls @ 0 mls/hr 09/27/20 12:15 09/28/20 12:54 Levophed IVPB 250 mls INF ALIYAH Administration Protocol Titrate Dextrose/Sodium Chloride 1,000 mls @ 50 mls/hr 09/29/20 17:15 10/01/20 09:19 D5 0.9% Ns IV 1,000 mls .Q20H ALIYAH Administration Vancomycin HCl 750 mg/ Sodium 250 mls @ 250 mls/hr 10/01/20 04:00 10/01/20 03:40 Chloride IVPB 250 mls 0400,1600 ALIYAH Administration Meropenem 2 gm/ Miscellaneous 100 mls @ 200 mls/hr 10/01/20 10:00 10/01/20 10:29 Medication 1 each/ Sodium IVPB 100 mls Chloride 0200,1000,1800 ALIYAH Administration Insulin Human Regular 0 units 09/08/20 20:03 09/29/20 05:31 Insulin Regular 300 Units/3 Ml Vial SC 6 units .AGGRESSIVE SLIDING PRN Administration Aggressive Correctional Scale Lorazepam 2 mg 09/30/20 20:25 10/01/20 09:19 Lorazepam 2 Mg/Ml Vial SLOW IVP 2 mg Q2H PRN Administration ANXIETY/AGITATION Methylprednisolone Sodium Succinate 20 mg 09/28/20 09:00 10/01/20 09:18 Methylprednisolone Sod Succ 40 Mg Vial IVP 20 mg DAILY ALIYAH Administration Metoclopramide HCl 10 mg 09/14/20 18:50 09/22/20 03:14 Metoclopramide Hcl 10 Mg/2 Ml Vial IVP 10 mg Q6H PRN Administration Nausea/Vomiting Pantoprazole Sodium 40 mg 09/28/20 09:00 10/01/20 09:18 Pantoprazole 40 Mg Vial IVP 40 mg DAILY ALIYAH Administration Sodium Chloride 10 ml 09/09/20 09:00 10/01/20 09:18 Flush - Normal Saline 10 Ml Syringe IVF 10 ml Q12HR ALIYAH Administration Tamsulosin HCl 0.4 mg 09/09/20 09:00 10/01/20 10:48 Tamsulosin Hcl 0.4 Mg Cap PO 0.4 mg DAILY ALIYAH Administration Hospitalist Exam Vitals: Vital Signs (12 hours) Temp Pulse Pulse Resp BP BP Pulse Ox 10/01/20 14:21 93 103/67 10/01/20 14:20 92 36 H 96 10/01/20 14:00 35 H 10/01/20 12:00 98.6 F 36 H 10/01/20 11:40 96 95/54 L 10/01/20 10:14 113 H 111/79 10/01/20 10:13 122 H 40 H 91 L 10/01/20 10:00 33 H 10/01/20 08:00 99.8 F H 40 H 92 L 10/01/20 07:20 107 H 118/71 10/01/20 07:18 105 H 36 H 90 L 10/01/20 04:00 97.8 F Pulse Ox 10/01/20 14:21 10/01/20 14:20 10/01/20 14:00 10/01/20 12:00 10/01/20 11:40 91 L 10/01/20 10:14 10/01/20 10:13 10/01/20 10:00 10/01/20 08:00 10/01/20 07:20 10/01/20 07:18 10/01/20 04:00 Weight Admit Weight 321 lb 3.416 oz Weight 350 lb 5.032 oz Most Recent Monitor Data Heart Rate from ECG 109 NIBP 80/51 NIBP BP-Mean 60 Respiration from ECG 37 SpO2 95 ENT: normocephalic atraumatic Neck: supple Respiratory: normal chest expansion, no tachypnea Extremities: no cyanosis, no clubbing Hosp A/P - Plan 09/29/20:Patient is a pleasant 80-year-old gentleman who was admitted to the hospital on September 08, 2020 for acute hypoxic respiratory failure secondary to COVID-19 pneumonia as well as A. fib with RVR. He was initially treated with BiPAP, subsequently was intubated. He eventually underwent tracheostomy and PEG tube placement. Initial plan was to send him to LTAC. He was accepted to LTAC but was awaiting bed availability. However, he had to be taken to the operating room on September 27, 2020 for dislodged PEG tube in the rectus sheath with sepsis. He had the PEG tube replaced pulse irrigation of the rectus sheath. However, on September 29 it was found that the new PEG tube was dislodged as well. 09/30: The patient appears to be resting comfortably on the vent. Family member at bedside reported that the patient was waking up and responding to them. He remains on antibiotics for his recent abdominal infection. Also on micafungin for Marisel isolated in the sputum. 10/01: The patient is septic secondary to abdominal wall infection related to complications from his PEG tube. I will administer a fluid bolus and start meropenem for gram-negative and anaerobic coverage. The patient is on vancomycin. Hosp A/P (1) Peritonitis Status: Acute (1) Acute respiratory failure with hypoxia Code(s): J96.01 - ACUTE RESPIRATORY FAILURE WITH HYPOXIA Status: Acute (2) Pneumonia due to 2019-nCoV Code(s): U07.1 - COVID-19; J12.89 - OTHER VIRAL PNEUMONIA Status: Acute (3) Atrial fibrillation with rapid ventricular response Code(s): I48.91 - UNSPECIFIED ATRIAL FIBRILLATION Status: Acute (4) CHF exacerbation Code(s): I50.9 - HEART FAILURE, UNSPECIFIED Status: Resolved (5) COPD exacerbation Code(s): J44.1 - CHRONIC OBSTRUCTIVE PULMONARY DISEASE W (ACUTE) EXACERBATION Status: Resolved
[2020-10-01] MEDS ORDERED: Fentanyl CADD 100 ML ONE (16:17)
[2020-10-01] MEDS: Albumin 25% 25 GM/100 ML BOT IVPB SCH ×2 (18:00→23:25)
--- NOTE | 2020-10-01 18:27 | PRG ---
DATE OF SERVICE: 10/01/2020 SUBJECTIVE: Pete Hogan remains mechanically ventilated. His PEG tube was apparently pulled out again this morning. Dr. Cerda reinserted it. It is unclear how this was pulled out. OBJECTIVE: VITAL SIGNS: Heart rate 105, blood pressures 70s to 80s, respiratory rates in the 20s to 30s. LUNGS: Remarkable for coarse equal breath sounds. HEART: Regular rhythm. ABDOMEN: Left abdomen is erythematous. LABORATORY DATA: White count 7.9, hemoglobin 9.1, platelets 101. Sodium 138, potassium 3.5, chloride 103, bicarb 28, BUN 14, and creatinine 0.5. IMPRESSION: 1. Respiratory failure secondary to chronic obstructive pulmonary disease and bronchitis. 2. COVID infection in the recent past. Not a clinical part of this admission. 3. Status post trach and PEG secondary to weakness and deconditioning. 4. Status post displacement of his PEG and contamination of his rectus sheath, which has been washed out. 5. Status post inadvertently pullback of the PEG again somehow last night. 6. Abdominal wall erythema that is likely just inflammatory and associated with some of his edema and not felt likely to be cellulitis. He is steadily gaining weight, although I do not feel that the bed scales are accurate. His intake and outputs have been very positive last few days. He probably needs to be on a daily dose of diuretic which may help with his abdominal wall edema. What is recorded as his admitting weight is about 25 pounds less than the current weight, although I really do not feel his weights are accurate. He clearly does need diuresis at this point, although with his blood pressure being up and down, not sure he will tolerate this without pressor support. I suspect his oncotic pressure is low. The last albumin we had was 2.3 on the , still soft, start him on some salt-poor albumin, see how his blood pressure is tomorrow and consider adding diuretics. Critical care time 30 min. Job ID: [id number] MTDD
[2020-10-01] MEDS: Atorvastatin Calcium 40 MG TAB PO SCH (21:31)
[2020-10-01] MEDS: Enoxaparin Sodium 40 MG/0.4 ML SYRINGE SC SCH (21:31)
[2020-10-01] MEDS: Insulin Regular 300 UNITS/3 ML VIAL SC PRN (22:38)
[2020-10-02] MEDS: Meropenem 2 GM, Admixture Fee 1 EACH in Sodium Chloride 0.9% 100 ML IVPB SCH ×3 (01:26→17:34)
[2020-10-02] MEDS: Vancomycin HCl 750 MG in Sodium Chloride 0.9% 250 ML 250 ML IVPB SCH ×2 (03:24→16:06)
[2020-10-02 04:14] LABS: Anion Gap 14 mmol/L (10-20); BUN (Urea Nitrogen) 15 mg/dL (8.4-25.7); Calc. Creatinine Clearance 207 mL/min (70-130); Calcium 7.3 mg/dL (7.8-10.44); Carbon Dioxide 23 mmol/L (23-31); Chloride 103 mmol/L (98-107); Glucose 243 mg/dL (83-110); Potassium 3.7 mmol/L (3.5-5.1); Sodium 136 mmol/L (136-145)
[2020-10-02 05:00] LABS: Band 39 % (5-11); Hemoglobin 8.4 g/dL (14.0-18.0); Lymphocytes 5 % (21-51); MDiff Complete? YES; Mean Corpuscular HGB CONC 31.7 g/dL (32.0-36.0); Mean Corpuscular Hemoglobin 28.7 pg (27.0-31.0); Mean Corpuscular Volume 90.6 fL (78.0-98.0); Mean Platelet Volume 11.7 fL (7.4-10.4); Metamyelocyte 1 % (0-0); Monocytes 2 % (0-10); Myelocyte 1 % (0-0); Neutrophil 52 % (42-75); Platelet Count 106 thou/uL (130-400); Platelet Morphology Comment Appears Decreased; RBC Distribution Width 14.4 % (11.5-14.5); Red Blood Cell (RBC) Count 2.94 mill/uL (4.70-6.10); Toxic Granulation SLIGHT; White Blood Cell (WBC) Count 9.7 thou/uL (4.8-10.8)
[2020-10-02] MEDS: Albumin 25% 25 GM/100 ML BOT IVPB SCH ×3 (05:12→16:54)
[2020-10-02] MEDS: Dextrose 5 % And 0.9 % NaCl 1,000 ML IV SCH (05:12)
[2020-10-02] MEDS: Insulin Regular 300 UNITS/3 ML VIAL SC PRN ×3 (05:21→22:32)
[2020-10-02] MEDS: Lorazepam 2 MG/ML VIAL SLOW IVP PRN ×4 (05:26→19:53)
[2020-10-02] MEDS ORDERED: Dextrose 5 % And 0.9 % NaCl 1,000 ML IV SCH (07:51)
--- NOTE | 2020-10-02 08:01 | RAD ---
XR Chest 1 View Portable HISTORY: Respiratory failure COMPARISON: Previous day FINDINGS: Allowing for differences in technique and patient positioning, no significant interval preston ges are seen.
[2020-10-02] MEDS: Furosemide 40 MG/4 ML VIAL SLOW IVP SCH (08:10)
[2020-10-02] MEDS: Insulin Glargine 30 UNITS in Pre-Filled Syringe 1 EACH SC SCH ×2 (08:18→21:04)
[2020-10-02] MEDS: Tamsulosin HCl 0.4 MG CAP PO SCH (08:18)
[2020-10-02] MEDS: Carvedilol 25 MG TAB PO SCH ×2 (08:18→16:54)
[2020-10-02] MEDS: methylPREDNISolone Sod Succ 40 MG VIAL IVP SCH (08:28)
[2020-10-02] MEDS: Pantoprazole 40 MG VIAL IVP SCH (08:29)
[2020-10-02] MEDS: Micafungin 100 MG in Sodium Chloride 0.9% 100 ML IVPB SCH (09:09)
--- NOTE | 2020-10-02 09:12 | PRG ---
DATE OF SERVICE: 10/02/2020 SUBJECTIVE: Mr. Hogan remains mechanically ventilated. His lung compliance is poor. OBJECTIVE: VITAL SIGNS: Heart rate is in the 90s, blood pressure 97/59, respiratory rate is in the 30s, FiO2 is at 55 increased, probably have to switch him to pressure control ventilation today. LUNGS: Remarkable for coarse equal breath sounds. HEART: Regular rhythm. ABDOMEN: Soft. He has less erythema on his abdominal wall today. LABORATORY DATA: White count 9.7, hemoglobin 8.4, and platelets 106,000. Sodium 136, potassium 3.7, chloride 103, bicarb 23, BUN 15, and creatinine 0.6. IMPRESSION: 1. Respiratory failure, initially secondary to chronic obstructive pulmonary disease and bronchitis. 2. Status post tracheostomy and percutaneous endoscopic gastrostomy for extreme deconditioning. 3. Recent COVID infection, not part of this clinical picture. 4. Status post inadvertent pullback of percutaneous endoscopic gastrostomy with tube feeds going into his rectus sheath status post washout with a wound VAC in place. 5. Abdominal wall erythema that is either cellulitis or an inflammatory reaction, that is improved. 6. Diffuse pulmonary infiltrates now, likely noncardiogenic pulmonary edema associated with abdominal wall infection. PLAN: We will continue with supportive care. We are probably going to switch him pressure control ventilation today. CRITICAL CARE TIME: 30 minutes. Job ID: [id number]
[2020-10-02] MEDS ORDERED: Dextrose 50% Abboject 50 ML SYRINGE IVP PRN (11:15)
[2020-10-02] MEDS ORDERED: Dextrose 5% in Water 1,000 ML IV PRN (11:15)
--- NOTE | 2020-10-02 13:34 | PRG ---
DATE OF SERVICE: Pete Hogan today is doing well, stable. PEG tube is working well. Tracheostomy site is stable. Wound VAC is in place. He is on tube feedings and tolerating them. No further problems with the PEG tube today. Job ID: [id number]
--- NOTE | 2020-10-02 15:32 | PDOC.HOSPP ---
- Subjective Encounter Date: 10/02/20 non-verbal (On the vent.) - Objective Vital Signs & Weight: Vital Signs (12 hours) Temp Pulse Pulse Pulse Resp BP BP 10/02/20 14:27 79 89/59 L 10/02/20 14:26 84 46 H 10/02/20 14:00 34 H 10/02/20 12:00 96.8 F L 36 H 10/02/20 11:15 89 90 100/74 10/02/20 10:34 88 97/69 10/02/20 10:33 88 42 H 10/02/20 10:00 37 H 10/02/20 08:00 97.3 F L 36 H 10/02/20 07:43 94 97/59 L 10/02/20 07:40 99 39 H BP Pulse Ox Pulse Ox Pulse Ox 10/02/20 14:27 10/02/20 14:26 95 10/02/20 14:00 10/02/20 12:00 10/02/20 11:15 97/68 90 L 92 L 10/02/20 10:34 10/02/20 10:33 91 L 10/02/20 10:00 10/02/20 08:00 92 L 10/02/20 07:43 10/02/20 07:40 91 L Weight Admit Weight 321 lb 3.416 oz Weight 356 lb 11.327 oz Most Recent Monitor Data Heart Rate from ECG 81 NIBP 108/63 NIBP BP-Mean 78 Respiration from ECG 29 SpO2 97 I&O: 10/01/20 10/02/20 10/03/20 06:59 06:59 06:59 Intake Total 1549 3384 120 Output Total 1405 1245 625 Balance 144 2139 -505 Result Diagrams: 10/02/20 03:00 10/02/20 03:00 Additional Labs: Accuchecks 10/02/20 10/01/20 10/01/20 11:42 22:35 16:11 POC Glucose 148 H 174 H 111 H 10/01/20 13:07 POC Glucose 79 Hospitalist ROS - Medication Medications: Active Medications Generic Name Dose Route Start Last Admin Trade Name Freq PRN Reason Stop Dose Admin Albumin Human 25 gm 10/01/20 18:00 10/02/20 13:24 Albumin 25% 25 Gm/100 Ml Bot IVPB 10/03/20 18:01 25 gm Q6HR ALIYAH Administration Albuterol/Ipratropium 3 ml 09/10/20 10:30 10/02/20 14:26 Ipratropium/Albuterol Sulfate 3 Ml Neb NEB 3 ml [id number] ALIYAH Administration Atorvastatin Calcium 40 mg 09/08/20 21:00 10/01/20 21:31 Atorvastatin Calcium 40 Mg Tab PO 40 mg HS ALIYAH Administration Carvedilol 25 mg 09/08/20 08:00 10/02/20 08:18 Carvedilol 25 Mg Tab PO 25 mg BID-WM ALIYAH Administration Diltiazem HCl 90 mg 09/29/20 09:00 10/02/20 08:18 Diltiazem Hcl 30 Mg Tablet PO 90 mg BID ALIYAH Administration Enoxaparin Sodium 40 mg 09/24/20 21:00 10/01/20 21:31 Enoxaparin Sodium 40 Mg/0.4 Ml Syringe SC 40 mg 2100 ALIYAH Administration Furosemide 60 mg 10/02/20 09:00 10/02/20 08:10 Furosemide 40 Mg/4 Ml Vial SLOW IVP 60 mg DAILY ALIYAH Administration Hydralazine HCl 20 mg 09/16/20 07:55 09/22/20 05:12 Hydralazine 20 Mg/Ml Vial SLOW IVP 20 mg Q6H PRN Administration SBP>180 Insulin Glargine 30 units/ 0.3 mls @ 0.1 mls/hr 09/13/20 21:00 10/02/20 08:18 Miscellaneous Medication SC Not Given BID ALIYAH Fentanyl 100 mls @ 0 mls/hr 09/23/20 13:45 09/27/20 20:31 Fentanyl Cadd IV 10/23/20 13:45 100 mls INF ALIYAH Administration Protocol Per Protocol Micafungin Sodium 100 mg/ 100 mls @ 100 mls/hr 09/26/20 10:00 10/02/20 09:09 Sodium Chloride IVPB 100 mls 1000 ALIYAH Administration Norepinephrine Bitartrate 250 mls @ 0 mls/hr 09/27/20 12:15 09/28/20 12:54 Levophed IVPB 250 mls INF ALIYAH Administration Protocol Titrate Vancomycin HCl 750 mg/ Sodium 250 mls @ 250 mls/hr 10/01/20 04:00 10/02/20 03:24 Chloride IVPB 250 mls 0400,1600 ALIYAH Administration Meropenem 2 gm/ Miscellaneous 100 mls @ 200 mls/hr 10/01/20 10:00 10/02/20 13:24 Medication 1 each/ Sodium IVPB 100 mls Chloride 0200,1000,1800 ALIYAH Administration Insulin Human Regular 0 units 09/08/20 20:03 10/02/20 05:21 Insulin Regular 300 Units/3 Ml Vial SC 6 units .AGGRESSIVE SLIDING PRN Administration Aggressive Correctional Scale Lorazepam 2 mg 09/30/20 20:25 10/02/20 08:11 Lorazepam 2 Mg/Ml Vial SLOW IVP 2 mg Q2H PRN Administration ANXIETY/AGITATION Methylprednisolone Sodium Succinate 20 mg 09/28/20 09:00 10/02/20 08:28 Methylprednisolone Sod Succ 40 Mg Vial IVP 20 mg DAILY ALIYAH Administration Metoclopramide HCl 10 mg 09/14/20 18:50 09/22/20 03:14 Metoclopramide Hcl 10 Mg/2 Ml Vial IVP 10 mg Q6H PRN Administration Nausea/Vomiting Pantoprazole Sodium 40 mg 09/28/20 09:00 10/02/20 08:29 Pantoprazole 40 Mg Vial IVP 40 mg DAILY ALIYAH Administration Sodium Chloride 10 ml 09/09/20 09:00 10/02/20 08:29 Flush - Normal Saline 10 Ml Syringe IVF 10 ml Q12HR ALIYAH Administration Tamsulosin HCl 0.4 mg 09/09/20 09:00 10/02/20 08:18 Tamsulosin Hcl 0.4 Mg Cap PO 0.4 mg DAILY ALIYAH Administration Hospitalist Exam Vitals: Vital Signs (12 hours) Temp Pulse Pulse Pulse Resp BP BP 10/02/20 14:27 79 89/59 L 10/02/20 14:26 84 46 H 10/02/20 14:00 34 H 10/02/20 12:00 96.8 F L 36 H 10/02/20 11:15 89 90 100/74 10/02/20 10:34 88 97/69 10/02/20 10:33 88 42 H 10/02/20 10:00 37 H 10/02/20 08:00 97.3 F L 36 H 10/02/20 07:43 94 97/59 L 10/02/20 07:40 99 39 H BP Pulse Ox Pulse Ox Pulse Ox 10/02/20 14:27 10/02/20 14:26 95 10/02/20 14:00 10/02/20 12:00 10/02/20 11:15 97/68 90 L 92 L 10/02/20 10:34 10/02/20 10:33 91 L 10/02/20 10:00 10/02/20 08:00 92 L 10/02/20 07:43 10/02/20 07:40 91 L Weight Admit Weight 321 lb 3.416 oz Weight 356 lb 11.327 oz Most Recent Monitor Data Heart Rate from ECG 81 NIBP 108/63 NIBP BP-Mean 78 Respiration from ECG 29 SpO2 97 ENT: normocephalic atraumatic Neck: supple Heart: RRR Respiratory: normal chest expansion, no tachypnea Extremities: no cyanosis, no clubbing Hosp A/P - Plan 09/29/20:Patient is a pleasant 80-year-old gentleman who was admitted to the hospital on September 08, 2020 for acute hypoxic respiratory failure secondary to COVID-19 pneumonia as well as A. fib with RVR. He was initially treated with BiPAP, subsequently was intubated. He eventually underwent tracheostomy and PEG tube placement. Initial plan was to send him to LTAC. He was accepted to LTAC but was awaiting bed availability. However, he had to be taken to the operating room on September 27, 2020 for dislodged PEG tube in the rectus sheath with sepsis. He had the PEG tube replaced pulse irrigation of the rectus sheath. However, on September 29 it was found that the new PEG tube was dislodged as well. 09/30: The patient appears to be resting comfortably on the vent. Family member at bedside reported that the patient was waking up and responding to them. He remains on antibiotics for his recent abdominal infection. Also on micafungin for Marisel isolated in the sputum. 10/01: The patient is septic secondary to abdominal wall infection related to complications from his PEG tube. I will administer a fluid bolus and start meropenem for gram-negative and anaerobic coverage. The patient is on vancomycin. 10/02: Tolerating tube feeding. VAC in place. No evidence of sepsis. Continue IV meropenem and follow-up blood culture results. Vent management per pulmonology. Hosp A/P (1) Peritonitis Status: Acute (1) Acute respiratory failure with hypoxia Code(s): J96.01 - ACUTE RESPIRATORY FAILURE WITH HYPOXIA Status: Acute (2) Pneumonia due to 2019-nCoV Code(s): U07.1 - COVID-19; J12.89 - OTHER VIRAL PNEUMONIA Status: Acute (3) Atrial fibrillation with rapid ventricular response Code(s): I48.91 - UNSPECIFIED ATRIAL FIBRILLATION Status: Acute (4) CHF exacerbation Code(s): I50.9 - HEART FAILURE, UNSPECIFIED Status: Resolved (5) COPD exacerbation Code(s): J44.1 - CHRONIC OBSTRUCTIVE PULMONARY DISEASE W (ACUTE) EXACERBATION Status: Resolved
[2020-10-02 15:52] LABS: Vancomycin, Trough 21.1 ug/mL
[2020-10-02] MEDS: Fentanyl CADD 100 ML IV SCH (16:53)
[2020-10-02] MEDS ORDERED: Vecuronium 10 MG VIAL IVP PRN (19:12)
[2020-10-02] MEDS ORDERED: Sterile Water 10 ML VIAL FS PRN (19:15)
[2020-10-02] MEDS: Enoxaparin Sodium 40 MG/0.4 ML SYRINGE SC SCH (20:21)
[2020-10-02] MEDS: Atorvastatin Calcium 40 MG TAB PO SCH (20:22)
[2020-10-03] MEDS: Meropenem 2 GM, Admixture Fee 1 EACH in Sodium Chloride 0.9% 100 ML IVPB SCH ×3 (03:30→17:25)
[2020-10-03 07:21] LABS: #Lymphocytes 0.5 thou/uL (1.20-3.40); #Monocytes 0.2 thou/uL (0.11-0.59); #Neutrophils 9.3 thou/uL (1.40-6.50); %Basophils 0.1 % (0.0-1.0); %Eosinophils 0.2 % (0.0-10.0); %Lymphocytes 5.3 % (21.0-51.0); %Monocytes 2.2 % (0.0-10.0); %Neutrophils 92.1 % (42.0-75.0); Hemoglobin 7.9 g/dL (14.0-18.0); Mean Corpuscular HGB CONC 31.8 g/dL (32.0-36.0); Mean Corpuscular Hemoglobin 29.3 pg (27.0-31.0); Mean Corpuscular Volume 92.2 fL (78.0-98.0); Mean Platelet Volume 11.1 fL (7.4-10.4); Platelet Count 98 thou/uL (130-400); RBC Distribution Width 14.8 % (11.5-14.5); White Blood Cell (WBC) Count 10.1 thou/uL (4.8-10.8)
[2020-10-03 07:22] LABS: Anion Gap 11 mmol/L (10-20); BUN (Urea Nitrogen) 17 mg/dL (8.4-25.7); Calc. Creatinine Clearance 187 mL/min (70-130); Calcium 7.4 mg/dL (7.8-10.44); Carbon Dioxide 28 mmol/L (23-31); Chloride 105 mmol/L (98-107); Glucose 300 mg/dL (83-110); Potassium 3.4 mmol/L (3.5-5.1); Sodium 141 mmol/L (136-145)
[2020-10-03] MEDS ORDERED: Sodium Chloride 0.9% 1,000 ML IV SCH (07:45)
--- NOTE | 2020-10-03 07:53 | RAD ---
Exam: 1 view abdomen HISTORY: Evaluate PEG tube. COMPARISON: 10/01/2020. FINDINGS: Contrast opacifies the PEG tube. Contrast enters the stomach. IMPRESSION: Intraluminal contrast. Transcribed Date/Time: 10/03/2020 7:54 AM
--- NOTE | 2020-10-03 07:56 | RAD ---
Exam: Chest one view HISTORY:Ventilated patient. Respiratory distress. Comparison: 10/02/2020 FINDINGS: Lines and tubes: Stable tracheostomy Cardiac silhouette:Cardiomegaly Aorta: Unremarkable Pulmonary vessels: Normal Costophrenic angles: Small right effusion LUNGS: Multifocal interstitial and alveolar opacities are redemonstrated Pneumothorax: None Osseous abnormalities: None IMPRESSION: Stable multi lobar pneumonia. No significant change.
[2020-10-03] MEDS: methylPREDNISolone Sod Succ 40 MG VIAL IVP SCH (10:06)
[2020-10-03] MEDS: Insulin Glargine 30 UNITS in Pre-Filled Syringe 1 EACH SC SCH ×2 (10:06→21:03)
[2020-10-03] MEDS: Micafungin 100 MG in Sodium Chloride 0.9% 100 ML IVPB SCH (10:12)
[2020-10-03] MEDS: Insulin Regular 300 UNITS/3 ML VIAL SC PRN ×2 (10:27→17:06)
[2020-10-03] MEDS: Pantoprazole 40 MG VIAL IVP SCH (10:29)
[2020-10-03] MEDS: Furosemide 40 MG/4 ML VIAL SLOW IVP SCH (10:31)
[2020-10-03] MEDS: Tamsulosin HCl 0.4 MG CAP PO SCH ×2 (10:34→12:21)
[2020-10-03] MEDS: Carvedilol 25 MG TAB PO SCH ×3 (10:34→17:27)
[2020-10-03] MEDS ORDERED: Furosemide 100 MG/10 ML VIAL IVPB SCH (14:45)
--- NOTE | 2020-10-03 14:52 | PRG ---
DATE OF SERVICE: 10/03/2020 SUBJECTIVE: Mr. Hogan's daughter was in the room with him today. I spent about 20 minutes talking to her. Apparently, Mr. Hogan spent 4 or 5 years in a [facility] and then the daughter who was at the bedside today took him out of the [facility]p and brought him home with her. She has been taking care of him. Her also had COVID and then came home and recently. She was taking care of him as well. OBJECTIVE: VITAL SIGNS: Mr. Hogan's blood pressure is 100/54, heart rate is in the 70s, respiratory rate is in the 20s. LUNGS: Coarse equal breath sounds. HEART: Regular rhythm. ABDOMEN: Soft and nontender. His abdominal erythema has almost completely resolved. Intake and outputs positive 540. LABORATORY STUDIES: White count 10.1, hemoglobin 7.9, and platelets 98,000. Sodium 141, potassium 3.4, chloride 105, bicarb 28, BUN 17, and creatinine 0.72. IMPRESSION: 1. Status post mechanical ventilation and tracheostomy for chronic obstructive pulmonary disease exacerbation. 2. Dislodged feeding tube, leading to abdominal wall inflammatory process, which led to a washout of his rectus sheath. 3. Pulmonary edema. 4. Recent COVID infection, not part of this hospitalization. PLAN: We will try to get a little bit more aggressive with volume removal, change his Lasix to q.12 h. Critical care time 30 min. Job ID: [id number] MTDD
--- NOTE | 2020-10-03 15:46 | PRG ---
DATE OF SERVICE: 10/03/2020 Pete Hogan's PEG tube has fallen out again. The balloon is incompetent. I removed his wound VAC and placed a new PEG tube. It went easily through the old trach medially and into the stomach and new balloon inflated with sterile water 18 mL [address] to [address]. Wound Care replaced his wound VAC. Continue wound care and support. Job ID: [id number]
[2020-10-03] MEDS: VANCOMYCIN 1.25 GM/250 ML BAG 1.25 GM in Premix Bag 1 BAG IVPB SCH (17:38)
--- NOTE | 2020-10-03 18:41 | PDOC.HOSPP ---
- Subjective Encounter Date: 10/03/20 Subjective: sedated - Objective Vital Signs & Weight: Vital Signs (12 hours) Temp Pulse Pulse Pulse Resp BP BP 10/03/20 18:00 35 H 10/03/20 16:00 98.7 F 42 H 10/03/20 14:55 77 10/03/20 14:00 38 H 10/03/20 12:00 97.4 F L 27 H 10/03/20 10:59 83 10/03/20 10:31 83 85 103/63 127/68 10/03/20 10:00 94.6 F L 26 H 10/03/20 08:20 86 10/03/20 08:00 94.1 F L 27 H Pulse Ox Pulse Ox Pulse Ox 10/03/20 18:00 10/03/20 16:00 10/03/20 14:55 10/03/20 14:00 10/03/20 12:00 10/03/20 10:59 10/03/20 10:31 93 L 94 L 10/03/20 10:00 10/03/20 08:20 10/03/20 08:00 93 L Weight Admit Weight 321 lb 3.416 oz Weight 363 lb 5.149 oz Most Recent Monitor Data Heart Rate from ECG 87 NIBP 114/58 NIBP BP-Mean 76 Respiration from ECG 35 SpO2 91 I&O: 10/02/20 10/03/20 10/04/20 06:59 06:59 06:59 Intake Total 3384 3065.9 1880 Output Total 1245 2525 840 Balance 2139 540.9 1040 Result Diagrams: 10/03/20 03:45 10/03/20 03:30 Additional Labs: Accuchecks 10/03/20 10/03/20 10/03/20 17:04 10:26 03:46 POC Glucose 195 H 232 H 265 H 10/02/20 10/01/20 21:00 12:19 POC Glucose 315 H Less than 30 L* Hospitalist ROS - Medication Medications: Active Medications Generic Name Dose Route Start Last Admin Trade Name Freq PRN Reason Stop Dose Admin Albuterol/Ipratropium 3 ml 09/10/20 10:30 10/03/20 14:54 Ipratropium/Albuterol Sulfate 3 Ml Neb NEB 3 ml [id number] ALIYAH Administration Atorvastatin Calcium 40 mg 09/08/20 21:00 10/02/20 20:22 Atorvastatin Calcium 40 Mg Tab PO 40 mg HS ALIYAH Administration Carvedilol 25 mg 09/08/20 08:00 10/03/20 17:27 Carvedilol 25 Mg Tab PO Not Given BID-WM ALIYAH Diltiazem HCl 90 mg 09/29/20 09:00 10/03/20 12:20 Diltiazem Hcl 30 Mg Tablet PO 90 mg BID ALIYAH Administration Enoxaparin Sodium 40 mg 09/24/20 21:00 10/02/20 20:21 Enoxaparin Sodium 40 Mg/0.4 Ml Syringe SC 40 mg 2100 ALIYAH Administration Hydralazine HCl 20 mg 09/16/20 07:55 09/22/20 05:12 Hydralazine 20 Mg/Ml Vial SLOW IVP 20 mg Q6H PRN Administration SBP>180 Insulin Glargine 30 units/ 0.3 mls @ 0.1 mls/hr 09/13/20 21:00 10/03/20 10:06 Miscellaneous Medication SC 0.3 mls BID ALIYAH Administration Micafungin Sodium 100 mg/ 100 mls @ 100 mls/hr 09/26/20 10:00 10/03/20 10:12 Sodium Chloride IVPB 100 mls 1000 ALIYAH Administration Norepinephrine Bitartrate 250 mls @ 0 mls/hr 09/27/20 12:15 09/28/20 12:54 Levophed IVPB 250 mls INF ALIYAH Administration Protocol Titrate Meropenem 2 gm/ Miscellaneous 100 mls @ 200 mls/hr 10/01/20 10:00 10/03/20 17:25 Medication 1 each/ Sodium IVPB 100 mls Chloride 0200,1000,1800 ALIYAH Administration Vancomycin HCl 1.25 gm/ Device 250 mls @ 166.667 mls/hr 10/03/20 16:00 10/03/20 17:38 IVPB 250 mls 1600 ALIYAH Administration Insulin Human Regular 0 units 09/08/20 20:03 10/03/20 17:06 Insulin Regular 300 Units/3 Ml Vial SC 3 units .AGGRESSIVE SLIDING PRN Administration Aggressive [employer]al Scale Lorazepam 2 mg 09/30/20 20:25 10/02/20 19:53 Lorazepam 2 Mg/Ml Vial SLOW IVP 2 mg Q2H PRN Administration ANXIETY/AGITATION Methylprednisolone Sodium Succinate 20 mg 09/28/20 09:00 10/03/20 10:06 Methylprednisolone Sod Succ 40 Mg Vial IVP 20 mg DAILY ALIYAH Administration Metoclopramide HCl 10 mg 09/14/20 18:50 09/22/20 03:14 Metoclopramide Hcl 10 Mg/2 Ml Vial IVP 10 mg Q6H PRN Administration Nausea/Vomiting Pantoprazole Sodium 40 mg 09/28/20 09:00 10/03/20 10:29 Pantoprazole 40 Mg Vial IVP 40 mg DAILY ALIYAH Administration Sodium Chloride 10 ml 09/09/20 09:00 10/03/20 10:29 Flush - Normal Saline 10 Ml Syringe IVF 10 ml Q12HR ALIYAH Administration Sterile Water 10 ml 10/02/20 19:15 10/02/20 20:18 Sterile Water 10 Ml Vial FS 10 ml PRN PRN Administration VEC RECONSTITUTION Tamsulosin HCl 0.4 mg 09/09/20 09:00 10/03/20 12:21 Tamsulosin Hcl 0.4 Mg Cap PO 0.4 mg DAILY ALIYAH Administration Vecuronium [place] 10 mg 10/02/20 19:12 10/02/20 20:18 Vecuronium 10 Mg Vial IVP 10 mg Q1H PRN Administration .AGITATION Hospitalist Exam Vitals: Vital Signs (12 hours) Temp Pulse Pulse Pulse Resp BP BP 10/03/20 18:00 35 H 10/03/20 16:00 98.7 F 42 H 10/03/20 14:55 77 10/03/20 14:00 38 H 10/03/20 12:00 97.4 F L 27 H 10/03/20 10:59 83 10/03/20 10:31 83 85 103/63 127/68 10/03/20 10:00 94.6 F L 26 H 10/03/20 08:20 86 10/03/20 08:00 94.1 F L 27 H Pulse Ox Pulse Ox Pulse Ox 10/03/20 18:00 10/03/20 16:00 10/03/20 14:55 10/03/20 14:00 10/03/20 12:00 10/03/20 10:59 10/03/20 10:31 93 L 94 L 10/03/20 10:00 10/03/20 08:20 10/03/20 08:00 93 L Weight Admit Weight 321 lb 3.416 oz Weight 363 lb 5.149 oz Most Recent Monitor Data Heart Rate from ECG 87 NIBP 114/58 NIBP BP-Mean 76 Respiration from ECG 35 SpO2 91 General Appearance: NAD Eye: PERRL ENT: normocephalic atraumatic Neck: supple, symmetric Heart: RRR, no murmur, no gallops Respiratory: rhonchi (fine ronchi on expiration) Gastrointestinal: soft, non-tender, non-distended Hosp A/P (1) Respiratory failure requiring intubation Code(s): J96.90 - RESPIRATORY FAILURE, UNSP, UNSP W HYPOXIA OR HYPERCAPNIA Status: Acute (2) CHF exacerbation Code(s): I50.9 - HEART FAILURE, UNSPECIFIED Status: Acute (3) COPD exacerbation Code(s): J44.1 - CHRONIC OBSTRUCTIVE PULMONARY DISEASE W (ACUTE) EXACERBATION Status: Acute (4) COPD (chronic obstructive pulmonary disease) Status: Chronic Qualifiers: Chronic bronchitis type: unspecified - Plan plan09/29/20:Patient is a pleasant 80-year-old gentleman who was admitted to the hospital on September 08, 2020 for acute hypoxic respiratory failure secondary to COVID-19 pneumonia as well as A. fib with RVR. He was initially treated with BiPAP, subsequently was intubated. He eventually underwent tracheostomy and PEG tube placement. Initial plan was to send him to LTAC. He was accepted to LTAC but was awaiting bed availability. However, he had to be taken to the operating room on September 27, 2020 for dislodged PEG tube in the rectus sheath with sepsis. He had the PEG tube replaced pulse irrigation of the rectus sheath. However, on September 29 it was found that the new PEG tube was dislodged as well. 09/30: The patient appears to be resting comfortably on the vent. Family member at bedside reported that the patient was waking up and responding to them. He remains on antibiotics for his recent abdominal infection. Also on micafungin for Marisel isolated in the sputum. 10/01: The patient is septic secondary to abdominal wall infection related to complications from his PEG tube. I will administer a fluid bolus and start me ropenem for gram-negative and anaerobic coverage. The patient is on vancomycin. 10/02: Tolerating tube feeding. VAC in place. No evidence of sepsis. Continue IV meropenem and follow-up blood culture results. Vent management per pulmonology. 2/3 : continue to be sedated with Fentanyl, will stop his IVF since we are diuresing him, will ask the wound care team to see him for decubiti ulcers.
[2020-10-03] MEDS: Lorazepam 2 MG/ML VIAL SLOW IVP PRN ×2 (19:50→23:38)
[2020-10-03] MEDS: Enoxaparin Sodium 40 MG/0.4 ML SYRINGE SC SCH (21:02)
[2020-10-03] MEDS: Atorvastatin Calcium 40 MG TAB PO SCH (21:02)
[2020-10-03] MEDS ORDERED: Fentanyl CADD 100 ML ONE (22:25)
[2020-10-03] MEDS: Fentanyl CADD 100 ML IV SCH (22:29)
[2020-10-04] MEDS: Meropenem 2 GM, Admixture Fee 1 EACH in Sodium Chloride 0.9% 100 ML IVPB SCH ×3 (02:11→18:25)
[2020-10-04 04:36] LABS: Anion Gap 16 mmol/L (10-20); BUN (Urea Nitrogen) 24 mg/dL (8.4-25.7); Calc. Creatinine Clearance 174 mL/min (70-130); Calcium 7.6 mg/dL (7.8-10.44); Carbon Dioxide 25 mmol/L (23-31); Chloride 104 mmol/L (98-107); Glucose 227 mg/dL (83-110); Potassium 3.2 mmol/L (3.5-5.1); Sodium 142 mmol/L (136-145)
[2020-10-04 05:13] LABS: Band 26 % (5-11); Eosinophils 2 % (0-10); Hemoglobin 8.1 g/dL (14.0-18.0); Large Platelets SLIGHT; Lymphocytes 8 % (21-51); MDiff Complete? YES; Mean Corpuscular HGB CONC 31.5 g/dL (32.0-36.0); Mean Corpuscular Hemoglobin 29.2 pg (27.0-31.0); Mean Corpuscular Volume 92.8 fL (78.0-98.0); Mean Platelet Volume 11.5 fL (7.4-10.4); Monocytes 3 % (0-10); Neutrophil 61 % (42-75); Platelet Count 107 thou/uL (130-400); Platelet Morphology Comment Appears Decreased; RBC Distribution Width 14.8 % (11.5-14.5); Red Blood Cell (RBC) Count 2.77 mill/uL (4.70-6.10); White Blood Cell (WBC) Count 11.2 thou/uL (4.8-10.8)
[2020-10-04] MEDS: Furosemide 100 MG/10 ML VIAL SLOW IVP SCH ×2 (05:36→16:30)
[2020-10-04] MEDS: Insulin Regular 300 UNITS/3 ML VIAL SC PRN ×4 (05:37→22:42)
--- NOTE | 2020-10-04 08:14 | RAD ---
PORTABLE CHEST: Date: 10/04/2020 INDICATION: On ventilator. CCU follow-up. COMPARISON: 10/03/2020. FINDINGS: Tracheostomy device is again noted. Bilateral effusions. Bilateral infiltrates, more pronounced in th e left mid and lower lung. IMPRESSION: No significant interval change. POS: AGW
[2020-10-04] MEDS: Micafungin 100 MG in Sodium Chloride 0.9% 100 ML IVPB SCH (09:58)
[2020-10-04] MEDS: Insulin Glargine 30 UNITS in Pre-Filled Syringe 1 EACH SC SCH ×2 (09:58→22:41)
[2020-10-04] MEDS: Pantoprazole 40 MG VIAL IVP SCH (09:59)
[2020-10-04] MEDS: Tamsulosin HCl 0.4 MG CAP PO SCH (09:59)
[2020-10-04] MEDS: Carvedilol 25 MG TAB PO SCH ×3 (09:59→16:36)
[2020-10-04] MEDS: methylPREDNISolone Sod Succ 40 MG VIAL IVP SCH (09:59)
--- NOTE | 2020-10-04 10:52 | PRG ---
DATE OF SERVICE: 10/04/2020 SUBJECTIVE: Mr. Hogan is extremely weak. OBJECTIVE: VITAL SIGNS: His respiratory rate is in the 30s, FiO2 is at 55, heart rate is in the 90s, blood pressure 141/69. Intake and output, positive 853. LUNGS: Remarkable for coarse equal breath sounds. HEART: Regular rhythm. ABDOMEN: Soft. EXTREMITIES: Without asymmetry. Apparently, he has severe breakdown on his rear end. He continues to have bilateral infiltrates and effusions. His weight is 363 pounds per the bed scale. IMPRESSION: 1. Respiratory failure. 2. Admission for chronic obstructive pulmonary disease exacerbation that is resolved. 3. Status post contamination of his rectus sheath with tube feeds leading to a washout which led to clinical sepsis. 4. Pulmonary edema. 5. History of COVID infection in the past, not an issue this admission. 6. Obesity with deconditioning. 7. Atrial fibrillation. 8. Probable diastolic dysfunction. 9. Status post tracheostomy and feeding tube placement. 10. Anemia secondary to his subacute illness combined with blood draws. 11. Borderline thrombocytopenia. It is unclear to me at this point whether or not he can survive this. It is looking more and more like at 80 years of age that he would not be able to overcome this weakness to become functional again. I had a long meeting with the daughter yesterday and discussed all these issues. Job ID: [id number] [facility]
[2020-10-04] MEDS: VANCOMYCIN 1.25 GM/250 ML BAG 1.25 GM in Premix Bag 1 BAG IVPB SCH (16:30)
--- NOTE | 2020-10-04 18:05 | PDOC.HOSPP ---
- Subjective Encounter Date: 10/04/20 Subjective: remains vent dependant - Objective Vital Signs & Weight: Vital Signs (12 hours) Temp Pulse Pulse Pulse Resp BP BP 10/04/20 16:00 30 H 10/04/20 15:04 81 10/04/20 14:00 31 H 10/04/20 12:00 35 H 10/04/20 11:06 97 10/04/20 10:17 94 92 151/70 H 141/69 H 10/04/20 10:00 35 H 10/04/20 08:05 82 10/04/20 08:00 97.6 F 35 H Pulse Ox Pulse Ox Pulse Ox 10/04/20 16:00 10/04/20 15:04 10/04/20 14:00 10/04/20 12:00 10/04/20 11:06 10/04/20 10:17 90 L 91 L 10/04/20 10:00 10/04/20 08:05 10/04/20 08:00 90 L Weight Admit Weight 321 lb 3.416 oz Weight 363 lb 5.149 oz Most Recent Monitor Data Heart Rate from ECG 83 NIBP 130/63 NIBP BP-Mean 78 Respiration from ECG 29 SpO2 93 I&O: 10/03/20 10/04/20 10/05/20 06:59 06:59 06:59 Intake Total 3065.9 2763.9 1100 Output Total 2525 1910 1890 Balance 540.9 853.9 -790 Result Diagrams: 10/04/20 03:30 10/04/20 03:30 Additional Labs: Accuchecks 10/04/20 10/04/20 10/03/20 16:21 11:24 21:11 POC Glucose 195 H 208 H 214 H Hospitalist ROS - Medication Medications: Active Medications Generic Name Dose Route Start Last Admin Trade Name Freq PRN Reason Stop Dose Admin Albuterol/Ipratropium 3 ml 09/10/20 10:30 10/04/20 15:04 Ipratropium/Albuterol Sulfate 3 Ml Neb NEB 3 ml [id number] ALIYAH Administration Atorvastatin Calcium 40 mg 09/08/20 21:00 10/03/20 21:02 Atorvastatin Calcium 40 Mg Tab PO 40 mg HS ALIYAH Administration Carvedilol 25 mg 09/08/20 08:00 10/04/20 16:36 Carvedilol 25 Mg Tab PO Not Given BID-WM [facility] Diltiazem HCl 90 mg 09/29/20 09:00 10/04/20 09:59 Diltiazem Hcl 30 Mg Tablet PO 90 mg BID ALIYAH Administration Enoxaparin Sodium 40 mg 09/24/20 21:00 10/03/20 21:02 Enoxaparin Sodium 40 Mg/0.4 Ml Syringe SC Not Given 2100 [facility] Furosemide 60 mg 10/04/20 06:00 10/04/20 16:30 Furosemide 100 Mg/10 Ml Vial SLOW IVP 60 mg 0600,1400 ALIYAH Administration Hydralazine HCl 20 mg 09/16/20 07:55 09/22/20 05:12 Hydralazine 20 Mg/Ml Vial SLOW IVP 20 mg Q6H PRN Administration SBP>180 Insulin Glargine 30 units/ 0.3 mls @ 0.1 mls/hr 09/13/20 21:00 10/04/20 09:58 Miscellaneous Medication SC 0.3 mls BID ALIYAH Administration Micafungin Sodium 100 mg/ 100 mls @ 100 mls/hr 09/26/20 10:00 10/04/20 09:58 Sodium Chloride IVPB 100 mls 1000 ALIYAH Administration Norepinephrine Bitartrate 250 mls @ 0 mls/hr 09/27/20 12:15 09/28/20 12:54 Levophed IVPB 250 mls INF ALIYAH Administration Protocol Titrate Meropenem 2 gm/ Miscellaneous 100 mls @ 200 mls/hr 10/01/20 10:00 10/04/20 11:40 Medication 1 each/ Sodium IVPB 100 mls Chloride 0200,1000,1800 ALIYAH Administration Vancomycin HCl 1.25 gm/ Device 250 mls @ 166.667 mls/hr 10/03/20 16:00 10/04/20 16:30 IVPB 250 mls 1600 ALIYAH Administration Fentanyl 100 mls @ 0 mls/hr 10/03/20 14:45 10/03/20 22:29 Fentanyl Cadd IV 100 mls INF ALIYAH Administration Protocol Per Protocol Insulin Human Regular 0 units 09/08/20 20:03 10/04/20 16:27 Insulin Regular 300 Units/3 Ml Vial SC 3 units .AGGRESSIVE SLIDING PRN Administration Aggressive [employer] Scale Lorazepam 2 mg 09/30/20 20:25 10/03/20 23:38 Lorazepam 2 Mg/Ml Vial SLOW IVP 2 mg Q2H PRN Administration ANXIETY/AGITATION Methylprednisolone Sodium Succinate 20 mg 09/28/20 09:00 10/04/20 09:59 Methylprednisolone Sod Succ 40 Mg Vial IVP 20 mg DAILY ALIYAH Administration Metoclopramide HCl 10 mg 09/14/20 18:50 09/22/20 03:14 Metoclopramide Hcl 10 Mg/2 Ml Vial IVP 10 mg Q6H PRN Administration Nausea/Vomiting Pantoprazole Sodium 40 mg 09/28/20 09:00 10/04/20 09:59 Pantoprazole 40 Mg Vial IVP 40 mg DAILY ALIYAH Administration Sodium Chloride 10 ml 09/09/20 09:00 10/04/20 10:00 Flush - Normal Saline 10 Ml Syringe IVF 10 ml Q12HR ALIYAH Administration Sterile Water 10 ml 10/02/20 19:15 10/02/20 20:18 Sterile Water 10 Ml Vial FS 10 ml PRN PRN Administration VEC RECONSTITUTION Tamsulosin HCl 0.4 mg 09/09/20 09:00 10/04/20 09:59 Tamsulosin Hcl 0.4 Mg Cap PO 0.4 mg DAILY ALIYAH Administration Vecuronium [place] 10 mg 10/02/20 19:12 10/02/20 20:18 Vecuronium 10 Mg Vial IVP 10 mg Q1H PRN Administration .AGITATION Hospitalist Exam Vitals: Vital Signs (12 hours) Temp Pulse Pulse Pulse Resp BP BP 10/04/20 16:00 30 H 10/04/20 15:04 81 10/04/20 14:00 31 H 10/04/20 12:00 35 H 10/04/20 11:06 97 10/04/20 10:17 94 92 151/70 H 141/69 H 10/04/20 10:00 35 H 10/04/20 08:05 82 10/04/20 08:00 97.6 F 35 H Pulse Ox Pulse Ox Pulse Ox 10/04/20 16:00 10/04/20 15:04 10/04/20 14:00 10/04/20 12:00 10/04/20 11:06 10/04/20 10:17 90 L 91 L 10/04/20 10:00 10/04/20 08:05 10/04/20 08:00 90 L Weight Admit Weight 321 lb 3.416 oz Weight 363 lb 5.149 oz Most Recent Monitor Data Heart Rate from ECG 83 NIBP 130/63 NIBP BP-Mean 78 Respiration from ECG 29 SpO2 93 General Appearance: ill appearing (on a vent) Eye: PERRL ENT: normocephalic atraumatic Neck: supple Heart: RRR, no murmur Respiratory: rhonchi Gastrointestinal: soft, non-tender Extremities: 1+ LE edema Hosp A/P (1) Respiratory failure requiring intubation Code(s): J96.90 - RESPIRATORY FAILURE, UNSP, UNSP W HYPOXIA OR HYPERCAPNIA Status: Acute (2) CHF exacerbation Code(s): I50.9 - HEART FAILURE, UNSPECIFIED Status: Acute (3) COPD exacerbation Code(s): J44.1 - CHRONIC OBSTRUCTIVE PULMONARY DISEASE W (ACUTE) EXACERBATION Status: Acute (4) COPD (chronic obstructive pulmonary disease) Status: Chronic Qualifiers: Chronic bronchitis type: unspecified - Plan plan09/29/20:Patient is a pleasant 80-year-old gentleman who was admitted to the hospital on September 08, 2020 for acute hypoxic respiratory failure secondary to COVID-19 pneumonia as well as A. fib with RVR. He was initially treated with BiPAP, subsequently was intubated. He eventually underwent tracheostomy and PEG tube placement. Initial plan was to send him to LTAC. He was accepted to LTAC but was awaiting bed availability. However, he had to be taken to the operating room on September 27, 2020 for dislodged PEG tube in the rectus sheath with sepsis. He had the PEG tube replaced pulse irrigation of the rectus sheath. However, on September 29 it was found that the new PEG tube was dislodged as well. 09/30: The patient appears to be resting comfortably on the vent. Family member at bedside reported that the patient was waking up and responding to them. He remains on antibiotics for his recent abdominal infection. Also on micafungin for Marisel isolated in the sputum. 10/01: The patient is septic secondary to abdominal wall infection related to complications from his PEG tube. I will administer a fluid bolus and start meropenem for gram-negative and anaerobic coverage. The patient is on vancomycin. 10/02: Tolerating tube feeding. VAC in place. No evidence of sepsis. Continue IV meropenem and follow-up blood culture results. Vent manag ement per pulmonology. 10/03 : continue to be sedated with Fentanyl, will stop his IVF since we are diuresing him, will ask the wound care team to see him for decubiti ulcers. plan for today 10/04: currently on bilevel, he does have diffuse rhonchi I will ad some duoneb PRN, he continues to have loose stools , I will add metamucil for more bulk.
[2020-10-04] MEDS: Atorvastatin Calcium 40 MG TAB PO SCH (20:52)
[2020-10-04] MEDS: Enoxaparin Sodium 40 MG/0.4 ML SYRINGE SC SCH (20:52)
[2020-10-05] MEDS: Meropenem 2 GM, Admixture Fee 1 EACH in Sodium Chloride 0.9% 100 ML IVPB SCH ×3 (01:34→18:26)
[2020-10-05] MEDS ORDERED: Fentanyl CADD 100 ML ONE (03:30)
[2020-10-05 03:57] LABS: Band 32 % (5-11); Hemoglobin 8.7 g/dL (14.0-18.0); Lymphocytes 4 % (21-51); MDiff Complete? YES; Mean Corpuscular HGB CONC 31.4 g/dL (32.0-36.0); Mean Corpuscular Hemoglobin 28.8 pg (27.0-31.0); Mean Corpuscular Volume 91.5 fL (78.0-98.0); Mean Platelet Volume 11.3 fL (7.4-10.4); Monocytes 1 % (0-10); Neutrophil 63 % (42-75); Platelet Count 117 thou/uL (130-400); Platelet Morphology Comment Appears Decreased; RBC Distribution Width 14.8 % (11.5-14.5); Red Blood Cell (RBC) Count 3.04 mill/uL (4.70-6.10); White Blood Cell (WBC) Count 12.8 thou/uL (4.8-10.8)
[2020-10-05 04:02] LABS: Anion Gap 17 mmol/L (10-20); BUN (Urea Nitrogen) 35 mg/dL (8.4-25.7); Calc. Creatinine Clearance 178 mL/min (70-130); Calcium 7.8 mg/dL (7.8-10.44); Carbon Dioxide 24 mmol/L (23-31); Chloride 103 mmol/L (98-107); Glucose 232 mg/dL (83-110); Sodium 141 mmol/L (136-145)
[2020-10-05 04:10] LABS: Potassium 2.9 mmol/L (3.5-5.1)
[2020-10-05] MEDS ORDERED: Potassium Chloride 40 MEQ in Premix Bag 1 BAG IVPB SCH (04:30)
[2020-10-05] MEDS ORDERED: Potassium Chloride 40 MEQ in Sodium Chloride 0.9% 250 ML 250 ML IVPB SCH (05:00)
[2020-10-05] MEDS: Insulin Regular 300 UNITS/3 ML VIAL SC PRN ×2 (05:09→11:44)
[2020-10-05] MEDS: Potassium Chloride 40 MEQ in Premix Bag 1 BAG IVPB SCH ×2 (05:14→07:58)
[2020-10-05] MEDS: Furosemide 100 MG/10 ML VIAL SLOW IVP SCH ×2 (05:20→15:25)
[2020-10-05] MEDS ORDERED: Electrolyte Replacement Protocol FS PRN (07:15)
[2020-10-05] MEDS ORDERED: Magnesium 2 GM/50 ML 2 GM in Premix Bag 1 BAG IVPB SCH (07:15)
[2020-10-05] MEDS: Tamsulosin HCl 0.4 MG CAP PO SCH (07:58)
[2020-10-05] MEDS: Carvedilol 25 MG TAB PO SCH ×2 (07:58→17:21)
[2020-10-05] MEDS: methylPREDNISolone Sod Succ 40 MG VIAL IVP SCH ×2 (07:59→21:33)
[2020-10-05] MEDS: Pantoprazole 40 MG VIAL IVP SCH (07:59)
[2020-10-05] MEDS: Metamucil PACK PER TUBE SCH (08:09)
[2020-10-05] MEDS: Insulin Glargine 30 UNITS in Pre-Filled Syringe 1 EACH SC SCH ×2 (08:09→21:33)
--- NOTE | 2020-10-05 10:12 | RAD ---
PORTABLE CHEST: Date: 10/05/2020 INDICATION: CCU follow-up, on ventilator. COMPARISON: 10/04/2020. FINDINGS/IMPRESSION: Endotracheal tube and central line unchanged. Bilateral confluent and hazy alveolar infiltrates throughout both lungs. Bilateral effusions, larger on the right, with associated right basilar atelectasis. The left lung infiltrates may be improved wh en compared to yesterday. POS: AGW
[2020-10-05] MEDS: Micafungin 100 MG in Sodium Chloride 0.9% 100 ML IVPB SCH (10:18)
--- NOTE | 2020-10-05 12:00 | PRG ---
DATE OF SERVICE: 10/05/2020 SUBJECTIVE: Pete Hogan remains hemodynamically stable. OBJECTIVE: VITAL SIGNS: Heart rate is in the 80s, blood pressure 153/88, FiO2 is 65%, oximetry is 89% to 90%. LUNGS: Remarkable for coarse equal breath sounds with more wheezes today. HEART: Regular rhythm. ABDOMEN: Soft. EXTREMITIES: Without asymmetry. He has four extremity edema. LABORATORY DATA: White count 12.8, hemoglobin 8.7, platelets 117,000. Potassium is 2.9, BUN 35, creatinine 0.7. Intake and output are negative 842. Chest x-ray still shows bilateral alveolar infiltrates. IMPRESSION: 1. Respiratory failure. 2. Chronic obstructive pulmonary disease leading to a tracheostomy. 3. Status post trach and percutaneous endoscopic gastrostomy. 4. Status post inadvertent pullback of his gastrostomy tube secondary to his obesity. 5. Skin breakdown secondary to anasarca. 6. Advanced obstructive lung disease. 7. Extreme deconditioning. Based on my evaluation this whole week, I began to believe that he cannot survive this no matter what we do. We will continue with aggressive care. Critical care time 30 min. Job ID: [id number] [facility]TDD
[2020-10-05 15:25] LABS: Vancomycin, Trough 27.8 ug/mL
[2020-10-05] MEDS: VANCOMYCIN 1.25 GM/250 ML BAG 1.25 GM in Premix Bag 1 BAG IVPB SCH (15:28)
--- NOTE | 2020-10-05 19:14 | PDOC.HOSPP ---
- Subjective Subjective: sedated - Objective Vital Signs & Weight: Vital Signs (12 hours) Temp Pulse Pulse Pulse Resp BP BP 10/05/20 16:00 97.0 F L 23 H 10/05/20 14:42 89 10/05/20 14:00 23 H 10/05/20 12:00 97.6 F 37 H 10/05/20 10:46 83 10/05/20 10:00 33 H 10/05/20 08:55 92 90 153/88 H 127/63 10/05/20 08:00 97.7 F 37 H 10/05/20 07:27 91 Pulse Ox Pulse Ox Pulse Ox 10/05/20 16:00 10/05/20 14:42 10/05/20 14:00 10/05/20 12:00 10/05/20 10:46 10/05/20 10:00 10/05/20 08:55 89 L 90 L 10/05/20 08:00 86 L 10/05/20 07:27 Weight Admit Weight 321 lb 3.416 oz Weight 365 lb Most Recent Monitor Data Heart Rate from ECG 82 NIBP 94/59 NIBP BP-Mean 70 Respiration from ECG 19 SpO2 93 I&O: 10/04/20 10/05/20 10/06/20 06:59 06:59 06:59 Intake Total 2763.9 2458 450 Output Total 1910 3300 920 Balance 853.9 -842 -470 Result Diagrams: 10/05/20 03:28 10/05/20 03:28 Additional Labs: Accuchecks 10/05/20 10/05/20 10/05/20 16:13 11:02 05:01 POC Glucose 156 H 180 H 215 H 10/04/20 22:37 POC Glucose 216 H Hospitalist ROS - Medication Medications: Active Medications Generic Name Dose Route Start Last Admin Trade Name Freq PRN Reason Stop Dose Admin Albuterol/Ipratropium 3 ml 09/10/20 10:30 10/05/20 14:42 Ipratropium/Albuterol Sulfate 3 Ml Neb NEB 3 ml [id number] ALIYAH Administration Atorvastatin Calcium 40 mg 09/08/20 21:00 10/04/20 20:52 Atorvastatin Calcium 40 Mg Tab PO 40 mg HS ALIYAH Administration Carvedilol 25 mg 09/08/20 08:00 10/05/20 17:21 Carvedilol 25 Mg Tab PO 25 mg BID-WM ALIYAH Administration Diltiazem HCl 90 mg 09/29/20 09:00 10/05/20 07:58 Diltiazem Hcl 30 Mg Tablet PO 90 mg BID ALIYAH Administration Enoxaparin Sodium 40 mg 09/24/20 21:00 10/04/20 20:52 Enoxaparin Sodium 40 Mg/0.4 Ml Syringe SC 40 mg 2100 ALIYAH Administration Furosemide 60 mg 10/04/20 06:00 10/05/20 15:25 Furosemide 100 Mg/10 Ml Vial SLOW IVP 60 mg 0600,1400 ALIYAH Administration Hydralazine HCl 20 mg 09/16/20 07:55 09/22/20 05:12 Hydralazine 20 Mg/Ml Vial SLOW IVP 20 mg Q6H PRN Administration SBP>180 Insulin Glargine 30 units/ 0.3 mls @ 0.1 mls/hr 09/13/20 21:00 10/05/20 08:09 Miscellaneous Medication SC 0.3 mls BID ALIYAH Administration Micafungin Sodium 100 mg/ 100 mls @ 100 mls/hr 09/26/20 10:00 10/05/20 10:18 Sodium Chloride IVPB 100 mls 1000 ALIYAH Administration Norepinephrine Bitartrate 250 mls @ 0 mls/hr 09/27/20 12:15 09/28/20 12:54 Levophed IVPB 250 mls INF ALIYAH Administration Protocol Titrate Meropenem 2 gm/ Miscellaneous 100 mls @ 200 mls/hr 10/01/20 10:00 10/05/20 18:26 Medication 1 each/ Sodium IVPB 100 mls Chloride 0200,1000,1800 ALIYAH Administration Fentanyl 100 mls @ 0 mls/hr 10/03/20 14:45 10/03/20 22:29 Fentanyl Cadd IV 100 mls INF ALIYAH Administration Protocol Per Protocol Insulin Human Regular 0 units 09/08/20 20:03 10/05/20 11:44 Insulin Regular 300 Units/3 Ml Vial SC 3 units .AGGRESSIVE SLIDING PRN Administration Aggressive Correctional Scale Lorazepam 2 mg 09/30/20 20:25 10/03/20 23:38 Lorazepam 2 Mg/Ml Vial SLOW IVP 2 mg Q2H PRN Administration ANXIETY/AGITATION Metoclopramide HCl 10 mg 09/14/20 18:50 09/22/20 03:14 Metoclopramide Hcl 10 Mg/2 Ml Vial IVP 10 mg Q6H PRN Administration Nausea/Vomiting Pantoprazole Sodium 40 mg 09/28/20 09:00 10/05/20 07:59 Pantoprazole 40 Mg Vial IVP 40 mg DAILY ALIYAH Administration Psyllium Hydrophilic Mucilloid 1 pk 10/05/20 09:00 10/05/20 08:09 Metamucil Pack PER TUBE 1 pk DAILY ALIYAH Administration Sodium Chloride 10 ml 09/09/20 09:00 10/05/20 07:59 Flush - Normal Saline 10 Ml Syringe IVF 10 ml Q12HR ALIYAH Administration Sterile Water 10 ml 10/02/20 19:15 10/02/20 20:18 Sterile Water 10 Ml Vial FS 10 ml PRN PRN Administration VEC RECONSTITUTION Tamsulosin HCl 0.4 mg 09/09/20 09:00 10/05/20 07:58 Tamsulosin Hcl 0.4 Mg Cap PO 0.4 mg DAILY ALIYAH Administration Vecuronium [place] 10 mg 10/02/20 19:12 10/02/20 20:18 Vecuronium 10 Mg Vial IVP 10 mg Q1H PRN Administration .AGITATION Hospitalist Exam Vitals: Vital Signs (12 hours) Temp Pulse Pulse Pulse Resp BP BP 10/05/20 16:00 97.0 F L 23 H 10/05/20 14:42 89 10/05/20 14:00 23 H 10/05/20 12:00 97.6 F 37 H 10/05/20 10:46 83 10/05/20 10:00 33 H 10/05/20 08:55 92 90 153/88 H 127/63 10/05/20 08:00 97.7 F 37 H 10/05/20 07:27 91 Pulse Ox Pulse Ox Pulse Ox 10/05/20 16:00 10/05/20 14:42 10/05/20 14:00 10/05/20 12:00 10/05/20 10:46 10/05/20 10:00 10/05/20 08:55 89 L 90 L 10/05/20 08:00 86 L 10/05/20 07:27 Weight Admit Weight 321 lb 3.416 oz Weight 365 lb Most Recent Monitor Data Heart Rate from ECG 82 NIBP 94/59 NIBP BP-Mean 70 Respiration from ECG 19 SpO2 93 General Appearance: ill appearing Eye: PERRL ENT: normocephalic atraumatic Neck: supple, symmetric Heart: RRR, no murmur Respiratory: CTAB, no wheezes Extremities: 1+ LE edema Hosp A/P (1) Respiratory failure requiring intubation Code(s): J96.90 - RESPIRATORY FAILURE, UNSP, UNSP W HYPOXIA OR HYPERCAPNIA Status: Acute (2) CHF exacerbation Code(s): I50.9 - HEART FAILURE, UNSPECIFIED Status: Acute (3) COPD exacerbation Code(s): J44.1 - CHRONIC OBSTRUCTIVE PULMONARY DISEASE W (ACUTE) EXACERBATION Status: Acute (4) COPD (chronic obstructive pulmonary disease) Status: Chronic Qualifiers: Chronic bronchitis type: unspecified - Plan plan09/29/20:Patient is a pleasant 80-year-old gentleman who was admitted to the hospital on September 08, 2020 for acute hypoxic respiratory failure secondary to COVID-19 pneumonia as well as A. fib with RVR. He was initially treated with BiPAP, subsequently was intubated. He eventually underwent tracheostomy and PEG tube placement. Initial plan was to send him to LTAC. He was accepted to LTAC but was awaiting bed availability. However, he had to be taken to the operating room on September 27, 2020 for dislodged PEG tube in the rectus sheath with sepsis. He had the PEG tube replaced pulse irrigation of the rectus sheath. However, on September 29 it was found that the new PEG tube was dislodged as well. 09/30: The patient appears to be resting comfortably on the vent. Family member at bedside reported that the patient was waking up and responding to them. He remains on antibiotics for his recent abdominal infection. Also on micafungin for Marisel isolated in the sputum. 10/01: The patient is septic secondary to abdominal wall infection related to complications from his PEG tube. I will administer a fluid bolus and start meropenem for gram-negative and anaerobic coverage. The patient is on vancomycin. 10/02: Tolerating tube feeding. VAC in place. No evidence of sepsis. Continue IV meropenem and follow-up blood culture results. Vent management per pulmonology. 10/03 : continue to be sedated with Fentanyl, will stop his IVF since we are diuresing him, will ask the wound care team to see him for decubiti ulcers. plan for today 10/04: currently on bilevel, he does have diffuse rhonchi I will ad some duoneb PRN, he continues to have loose stools , I will add metamucil for more bulk. plan for today 10/05 his status remains unchanged, awaiting placement at LTAC.
[2020-10-05] MEDS: Enoxaparin Sodium 40 MG/0.4 ML SYRINGE SC SCH (21:32)
[2020-10-05] MEDS: Atorvastatin Calcium 40 MG TAB PO SCH (21:34)
[2020-10-06] MEDS: Meropenem 2 GM, Admixture Fee 1 EACH in Sodium Chloride 0.9% 100 ML IVPB SCH ×3 (02:11→18:31)
[2020-10-06] MEDS ORDERED: Fentanyl CADD 100 ML ONE (03:19)
[2020-10-06 03:49] LABS: Band 21 % (5-11); Hemoglobin 9.1 g/dL (14.0-18.0); Hypochromia SLIGHT = 6-15 cells (100X) (0-5/hpf); Lymphocytes 5 % (21-51); MDiff Complete? YES; Mean Corpuscular HGB CONC 31.6 g/dL (32.0-36.0); Mean Corpuscular Hemoglobin 29.5 pg (27.0-31.0); Mean Corpuscular Volume 93.2 fL (78.0-98.0); Mean Platelet Volume 11.4 fL (7.4-10.4); Monocytes 3 % (0-10); Neutrophil 71 % (42-75); Nucleated RBC 1 % (0); Platelet Count 88 thou/uL (130-400); Platelet Morphology Comment Appears Decreased; RBC Distribution Width 14.9 % (11.5-14.5); Red Blood Cell (RBC) Count 3.07 mill/uL (4.70-6.10); White Blood Cell (WBC) Count 10.6 thou/uL (4.8-10.8)
[2020-10-06 04:13] LABS: Anion Gap 17 mmol/L (10-20); BUN (Urea Nitrogen) 44 mg/dL (8.4-25.7); Calc. Creatinine Clearance 170 mL/min (70-130); Calcium 7.8 mg/dL (7.8-10.44); Carbon Dioxide 26 mmol/L (23-31); Chloride 105 mmol/L (98-107); Glucose 229 mg/dL (83-110); Potassium 3.8 mmol/L (3.5-5.1); Sodium 144 mmol/L (136-145)
[2020-10-06] MEDS: Fentanyl CADD 100 ML IV SCH (04:24)
[2020-10-06] MEDS: Insulin Regular 300 UNITS/3 ML VIAL SC PRN ×3 (04:25→16:02)
[2020-10-06] MEDS: Furosemide 100 MG/10 ML VIAL SLOW IVP SCH ×2 (06:20→13:43)
[2020-10-06] MEDS ORDERED: Magnesium 2 GM/50 ML 2 GM in Premix Bag 1 BAG IVPB SCH (08:00)
[2020-10-06] MEDS: Pantoprazole 40 MG VIAL IVP SCH (09:05)
[2020-10-06] MEDS: methylPREDNISolone Sod Succ 40 MG VIAL IVP SCH ×2 (09:05→20:03)
[2020-10-06] MEDS: Tamsulosin HCl 0.4 MG CAP PO SCH (09:06)
[2020-10-06] MEDS: Metamucil PACK PER TUBE SCH (09:06)
[2020-10-06] MEDS: Carvedilol 25 MG TAB PO SCH ×2 (09:06→17:27)
[2020-10-06] MEDS: Insulin Glargine 30 UNITS in Pre-Filled Syringe 1 EACH SC SCH ×2 (09:08→20:04)
--- NOTE | 2020-10-06 09:19 | RAD ---
CHEST 1 VIEW: Date: 10/06/2020 COMPARISON: Prior exam dated 10/05/2020. IMPRESSION: Tracheostomy tube and right-sided subclavian central venous catheter stable. Bilateral pneumonia stab le. No pneumothorax evident. POS: BH
[2020-10-06] MEDS: Micafungin 100 MG in Sodium Chloride 0.9% 100 ML IVPB SCH (10:31)
[2020-10-06] MEDS: Lorazepam 2 MG/ML VIAL SLOW IVP PRN (11:17)
--- NOTE | 2020-10-06 14:50 | PRG ---
DATE OF SERVICE: 10/06/2020 SUBJECTIVE: Pete Hogan remains mechanically ventilated. In negative fluid balance for a couple of days, but still has significant extremity edema. OBJECTIVE: LUNGS: Remarkable for coarse and equal breath sounds. HEART: Regular rhythm. ABDOMEN: Soft. EXTREMITIES: Edema. VITAL SIGNS: FiO2 is 60, blood pressure 104/66, respiratory rate is in the 20s. LABORATORY DATA: White count 10.6, hemoglobin 9.1, platelets 88,000. Sodium 144, potassium 3.8, chloride 105, bicarb 26, BUN 44, creatinine 0.8, glucose 329. Chest x-ray reviewed by me still shows left greater than right alveolar infiltrates. IMPRESSION: 1. Pulmonary edema: It is mostly noncardiogenic after developing clinical sepsis associated with the displacement of the feeding tube into the rectus sheath. 2. Chronic obstructive pulmonary disease exacerbation, leading to his intubation plus or minus bronchitis and pneumonia. 3. History of a COVID infection in the recent past with deconditioning, but it was not related to this admission. 4. Obesity. 5. Premorbid severe deconditioning, having lived in a [facility] for many years and then lived with the daughter for the last few years. His prognosis for functional recovery is quite poor. Job ID: [id number]
[2020-10-06] MEDS ORDERED: Vancomycin HCl 750 MG in Sodium Chloride 0.9% 250 ML 250 ML IVPB SCH (17:00)
--- NOTE | 2020-10-06 17:46 | PDOC.HOSPP ---
- Subjective Encounter Date: 10/06/20 Encounter Time: 09:20 Subjective: is on vent, sedated, does not respond to verbal stimuli or seen moving any extremities - Objective Vital Signs & Weight: Vital Signs (12 hours) Temp Pulse Pulse Resp BP BP Pulse Ox 10/06/20 16:00 97.5 F L 30 H 10/06/20 15:14 87 10/06/20 14:00 28 H 10/06/20 12:00 97.5 F L 32 H 10/06/20 11:08 84 10/06/20 10:00 94 38 H 137/72 111/62 10/06/20 08:00 97.6 F 30 H 10/06/20 07:50 94 L 10/06/20 06:34 96 10/06/20 06:00 29 H Pulse Ox Pulse Ox Pulse Ox 10/06/20 16:00 10/06/20 15:14 10/06/20 14:00 10/06/20 12:00 10/06/20 11:08 10/06/20 10:00 91 L 88 L 86 L 10/06/20 08:00 10/06/20 07:50 10/06/20 06:34 10/06/20 06:00 Weight Admit Weight 321 lb 3.416 oz Weight 365 lb Most Recent Monitor Data Heart Rate from ECG 84 NIBP 104/71 NIBP BP-Mean 82 Respiration from ECG 31 SpO2 89 I&O: 10/05/20 10/06/20 10/07/20 06:59 06:59 06:59 Intake Total 2458 1168.60 490 Output Total 3300 2555 0975 [place] [id number] -1016.40 -2035 Result Diagrams: 10/06/20 03:20 10/06/20 03:20 Additional Labs: Accuchecks 10/06/20 10/06/20 10/05/20 15:43 10:16 20:23 POC Glucose 152 H 203 H 173 H Hospitalist ROS - Medication Medications: Active Medications Generic Name Dose Route Start Last Admin Trade Name Freq PRN Reason Stop Dose Admin Albuterol/Ipratropium 3 ml 09/10/20 10:30 10/06/20 15:12 Ipratropium/Albuterol Sulfate 3 Ml Neb NEB 3 ml [id number] ALIYAH Administration Atorvastatin Calcium 40 mg 09/08/20 21:00 10/05/20 21:34 Atorvastatin Calcium 40 Mg Tab PO 40 mg HS ALIYAH Administration Carvedilol 25 mg 09/08/20 08:00 10/06/20 17:27 Carvedilol 25 Mg Tab PO 25 mg BID-WM ALIYAH Administration Diltiazem HCl 90 mg 09/29/20 09:00 10/06/20 09:06 Diltiazem Hcl 30 Mg Tablet PO 90 mg BID ALIYAH Administration Enoxaparin Sodium 40 mg 09/24/20 21:00 10/05/20 21:32 Enoxaparin Sodium 40 Mg/0.4 Ml Syringe SC 40 mg 2100 ALIYAH Administration Furosemide 60 mg 10/04/20 06:00 10/06/20 13:43 Furosemide 100 Mg/10 Ml Vial SLOW IVP 60 mg 0600,1400 ALIYAH Administration Hydralazine HCl 20 mg 09/16/20 07:55 09/22/20 05:12 Hydralazine 20 Mg/Ml Vial SLOW IVP 20 mg Q6H PRN Administration SBP>180 Insulin Glargine 30 units/ 0.3 mls @ 0.1 mls/hr 09/13/20 21:00 10/06/20 09:08 Miscellaneous Medication SC 0.3 mls BID ALIYAH Administration Micafungin Sodium 100 mg/ 100 mls @ 100 mls/hr 09/26/20 10:00 10/06/20 10:31 Sodium Chloride IVPB 100 mls 1000 ALIYAH Administration Norepinephrine Bitartrate 250 mls @ 0 mls/hr 09/27/20 12:15 09/28/20 12:54 Levophed IVPB 250 mls INF ALIYAH Administration Protocol Titrate Meropenem 2 gm/ Miscellaneous 100 mls @ 200 mls/hr 10/01/20 10:00 10/06/20 11:57 Medication 1 each/ Sodium IVPB 100 mls Chloride 0200,1000,1800 ALIYAH Administration Fentanyl 100 mls @ 0 mls/hr 10/03/20 14:45 10/06/20 04:24 Fentanyl Cadd IV 100 mls INF ALIYAH Administration Protocol Per Protocol Insulin Human Regular 0 units 09/08/20 20:03 10/06/20 16:02 Insulin Regular 300 Units/3 Ml Vial SC 3 units .AGGRESSIVE SLIDING PRN Administration Aggressive Correctional Scale Lorazepam 2 mg 09/30/20 20:25 10/06/20 11:17 Lorazepam 2 Mg/Ml Vial SLOW IVP 2 mg Q2H PRN Administration ANXIETY/AGITATION Methylprednisolone Sodium Succinate 20 mg 10/05/20 21:00 10/06/20 09:05 Methylprednisolone Sod Succ 40 Mg Vial IVP 20 mg Q12HR ALIYAH Administration Metoclopramide HCl 10 mg 09/14/20 18:50 09/22/20 03:14 Metoclopramide Hcl 10 Mg/2 Ml Vial IVP 10 mg Q6H PRN Administration Nausea/Vomiting Pantoprazole Sodium 40 mg 09/28/20 09:00 10/06/20 09:05 Pantoprazole 40 Mg Vial IVP 40 mg DAILY ALIYAH Administration Psyllium Hydrophilic Mucilloid 1 pk 10/05/20 09:00 10/06/20 09:06 Metamucil Pack PER TUBE 1 pk DAILY ALIYAH Administration Sodium Chloride 10 ml 09/09/20 09:00 10/06/20 09:06 Flush - Normal Saline 10 Ml Syringe IVF 10 ml Q12HR ALIYAH Administration Sterile Water 10 ml 10/02/20 19:15 10/02/20 20:18 Sterile Water 10 Ml Vial FS 10 ml PRN PRN Administration VEC RECONSTITUTION Tamsulosin HCl 0.4 mg 09/09/20 09:00 10/06/20 09:06 Tamsulosin Hcl 0.4 Mg Cap PO 0.4 mg DAILY ALIYAH Administration Vecuronium [place] 10 mg 10/02/20 19:12 10/02/20 20:18 Vecuronium 10 Mg Vial IVP 10 mg Q1H PRN Administration .AGITATION Hospitalist Exam Vitals: Vital Signs (12 hours) Temp Pulse Pulse Resp BP BP Pulse Ox 10/06/20 16:00 97.5 F L 30 H 10/06/20 15:14 87 10/06/20 14:00 28 H 10/06/20 12:00 97.5 F L 32 H 10/06/20 11:08 84 10/06/20 10:00 94 38 H 137/72 111/62 10/06/20 08:00 97.6 F 30 H 10/06/20 07:50 94 L 10/06/20 06:34 96 10/06/20 06:00 29 H Pulse Ox Pulse Ox Pulse Ox 10/06/20 16:00 10/06/20 15:14 10/06/20 14:00 10/06/20 12:00 10/06/20 11:08 10/06/20 10:00 91 L 88 L 86 L 10/06/20 08:00 10/06/20 07:50 10/06/20 06:34 10/06/20 06:00 Weight Admit Weight 321 lb 3.416 oz Weight 365 lb Most Recent Monitor Data Heart Rate from ECG 84 NIBP 104/71 NIBP BP-Mean 82 Respiration from ECG 31 SpO2 89 General Appearance: ill appearing Eye: PERRL, anicteric sclera ENT: no oropharyngeal lesions, dry oral mucosa Neck: no JVD Neck - other findings: trach+ Heart: RRR, no murmur Respiratory: no wheezes, rales, rhonchi Gastrointestinal: soft, non-distended, normal bowel sounds Gastrointestinal - other findings: peg+, wound vac+ Extremities: no cyanosis, 2+ LE edema Neurological: cranial nerve grossly intact, no focal deficits Hosp A/P (1) Acute respiratory failure with hypoxia Code(s): J96.01 - ACUTE RESPIRATORY FAILURE WITH HYPOXIA Status: Acute (2) COPD exacerbation Code(s): J44.1 - CHRONIC OBSTRUCTIVE PULMONARY DISEASE W (ACUTE) EXACERBATION Status: Acute (3) CHF exacerbation Code(s): I50.9 - HEART FAILURE, UNSPECIFIED Status: Chronic Qualifiers: Heart failure type: diastolic Qualified Code(s): I50.33 - Acute on chronic diastolic (congestive) heart failure (4) CRISTA (acute kidney injury) Code(s): N17.9 - ACUTE KIDNEY FAILURE, UNSPECIFIED Status: Resolved (5) Physical deconditioning Code(s): R53.81 - OTHER MALAISE Status: Acute (6) Pneumonia due to 2019-nCoV Code(s): U07.1 - COVID-19; J12.89 - OTHER VIRAL PNEUMONIA Status: Chronic (7) Atrial fibrillation Code(s): I48.91 - UNSPECIFIED ATRIAL FIBRILLATION Status: Chronic Qualifiers: Atrial fibrillation type: paroxysmal Qualified Code(s): I48.0 - Paroxysmal atrial fibrillation (8) BPH (benign prostatic hyperplasia) Code(s): N40.0 - BENIGN PROSTATIC HYPERPLASIA WITHOUT LOWER URINRY TRACT SYMP Status: Chronic Qualifiers: Lower urinary tract symptom presence: symptoms absent Qualified Code(s): N40.0 - Benign prostatic hyperplasia without lower urinary tract symptoms (9) Diabetes mellitus Code(s): E11.9 - TYPE 2 DIABETES MELLITUS WITHOUT COMPLICATIONS Status: Chronic Qualifiers: Diabetes mellitus type: type 2 Diabetes mellitus termite exterminator helper insulin use: with termite exterminator helper use Diabetes mellitus complication status: with hyperglycemia Qualified Code(s): E11.65 - Type 2 diabetes mellitus with hyperglycemia; Z79.4 - termite inspector (current) use of insulin (10) Gout Code(s): M10.9 - GOUT, UNSPECIFIED Status: Chronic Qualifiers: Gout site: unspecified site Gout etiology: unspecified cause (11) HTN (hypertension) Code(s): I10 - ESSENTIAL (PRIMARY) HYPERTENSION Status: Chronic Qualifiers: Hypertension type: essential hypertension Qualified Code(s): I10 - Essential (primary) hypertension (12) Hyperlipidemia Code(s): E78.5 - HYPERLIPIDEMIA, UNSPECIFIED Status: Chronic Qualifiers: Hyperlipidemia type: mixed hyperlipidemia Qualified Code(s): E78.2 - Mixed hyperlipidemia (13) Morbid obesity Code(s): E66.01 - MORBID (SEVERE) OBESITY DUE TO EXCESS CALORIES Status: Chronic (14) Normocytic anemia Code(s): D64.9 - ANEMIA, UNSPECIFIED Status: Chronic (15) Obstructive sleep apnea Code(s): G47.33 - OBSTRUCTIVE SLEEP APNEA (ADULT) (PEDIATRIC) Status: Chronic - Plan is on merrem, vanc, micafungin, lasix bid, lantus 30 bid, steroids, alb inh, protonix flomax, lipitor, coreg, cardizem 90mg bid and lovenox for dvt prophylaxis. still has anasarca despite lasix bid, watch for renal function, has nearly 34lbs weight gain since admission (331 to 365 lbs). his peg got dislodged twice and currently has one for feeding and meds, still encephalopathic. he had enterococcus bacteremia and was dc's on zyvox during his previous hosp in aug here. prognosis poor, this was d/w Ms.Brown Cobian daughter and gave her a full update. She is aware of fathers deconditioning with anasarca and multiple med issues, she does not want cpr done on him if his heart stops but to continue vent and see if he can make any progress. PT to work with him when he is off sedation aggressively.
[2020-10-06 19:11] LABS: Vancomycin, Random 28.9 ug/mL (See Comment)
[2020-10-06] MEDS: Atorvastatin Calcium 40 MG TAB PO SCH (20:03)
[2020-10-06] MEDS: Enoxaparin Sodium 40 MG/0.4 ML SYRINGE SC SCH (21:00)
[2020-10-07] MEDS: Meropenem 2 GM, Admixture Fee 1 EACH in Sodium Chloride 0.9% 100 ML IVPB SCH ×4 (01:50→18:35)
[2020-10-07] MEDS: Furosemide 100 MG/10 ML VIAL SLOW IVP SCH ×2 (05:12→14:10)
[2020-10-07 07:24] LABS: Anion Gap 14 mmol/L (10-20); BUN (Urea Nitrogen) 53 mg/dL (8.4-25.7); Calc. Creatinine Clearance 169 mL/min (70-130); Calcium 8.1 mg/dL (7.8-10.44); Carbon Dioxide 33 mmol/L (23-31); Chloride 101 mmol/L (98-107); Glucose 148 mg/dL (83-110); Magnesium 2.3 mg/dL (1.6-2.6); Sodium 145 mmol/L (136-145)
[2020-10-07 07:32] LABS: Potassium 2.9 mmol/L (3.5-5.1)
--- NOTE | 2020-10-07 07:33 | RAD ---
CHEST 1 VIEW: Date: 10/07/2020 INDICATION: History of intubation. COMPARISON: Prior exam dated 10/06/2020. IMPRESSION: Bilateral pneumonia is stable. Small right pleural effusion and tiny left pleural effusion persists. Tracheostomy and right-sided subclavian central venous catheter is similar appearing. No pneumothorax is evident. POS: BH
[2020-10-07 07:39] LABS: Mean Corpuscular HGB CONC 31.8 g/dL (32.0-36.0); Mean Corpuscular Volume 91.3 fL (78.0-98.0); Mean Platelet Volume 11.6 fL (7.4-10.4); Platelet Count 117 thou/uL (130-400); RBC Distribution Width 14.8 % (11.5-14.5); Red Blood Cell (RBC) Count 3.09 mill/uL (4.70-6.10); White Blood Cell (WBC) Count 10.2 thou/uL (4.8-10.8)
[2020-10-07] MEDS: Metamucil PACK PER TUBE SCH (07:51)
[2020-10-07] MEDS: Tamsulosin HCl 0.4 MG CAP PO SCH (07:51)
[2020-10-07] MEDS: Potassium Chloride 40 MEQ in Premix Bag 1 BAG IVPB SCH ×2 (07:51→11:49)
[2020-10-07] MEDS: Pantoprazole 40 MG VIAL IVP SCH (07:51)
[2020-10-07] MEDS: Carvedilol 25 MG TAB PO SCH ×2 (07:51→16:40)
[2020-10-07] MEDS: methylPREDNISolone Sod Succ 40 MG VIAL IVP SCH ×2 (07:52→22:00)
[2020-10-07] MEDS: Insulin Glargine 30 UNITS in Pre-Filled Syringe 1 EACH SC SCH ×2 (08:35→20:49)
[2020-10-07 08:39] LABS: Anisocytosis SLIGHT = 6-15 cells (100X) (0-5/hpf); Band 12 % (5-11); Elliptocytes SLIGHT = 2-5 cells (100X) (0-1/hpf); Hypochromia SLIGHT = 6-15 cells (100X) (0-5/hpf); Large Platelets SLIGHT; Lymphocytes 8 % (21-51); MDiff Complete? YES; Metamyelocyte 2 % (0-0); Monocytes 9 % (0-10); Neutrophil 69 % (42-75); Nucleated RBC 1 % (0); Platelet Morphology Comment Appears Decreased; Polychromasia SLIGHT = 2-3 cells (100X) (0-2/hpf); Target Cells SLIGHT = 2-5 cells (100X) (0-1/hpf)
[2020-10-07] MEDS: Micafungin 100 MG in Sodium Chloride 0.9% 100 ML IVPB SCH (09:46)
[2020-10-07] MEDS: Insulin Regular 300 UNITS/3 ML VIAL SC PRN (10:21)
[2020-10-07] MEDS ORDERED: Fentanyl CADD 100 ML ONE (10:22)
[2020-10-07] MEDS: Fentanyl CADD 100 ML IV SCH (10:24)
[2020-10-07] MEDS ORDERED: Potassium Chloride 20 MEQ TAB PER TUBE SCH (14:00)
--- NOTE | 2020-10-07 14:03 | PRG ---
DATE OF SERVICE: 10/07/2020 SUBJECTIVE: Pete Hogan has not improved. I do believe that he is reaching a point, where he did not have enough muscle strength to wean from mechanical ventilation, even with a tracheostomy. OBJECTIVE: VITAL SIGNS: He is afebrile, respiratory rates in the 30s. His minute volume is 15 L a minute, FiO2 is at 60. Blood pressure 113/58, heart rate 78. LUNGS: Remarkable for coarse equal breath sounds. HEART: Regular rhythm. ABDOMEN: Soft. IMAGING STUDIES: Chest x-ray is unchanged, even looking back several days. IMPRESSION: 1. Respiratory failure. 2. Underlying deconditioning and severe obstructive lung disease. 3. Premorbid deconditioning, living in a senior living for 5 years, then living with his daughter for several years recently. 4. Status post tracheostomy and percutaneous endoscopic gastrostomy. 5. Status post dislodged percutaneous endoscopic gastrostomy leading to clinical sepsis. 6. Pulmonary edema plus or minus pneumonia. PLAN: Continue supportive care, but he is not weanable from mechanical ventilation at this point in time. Unfortunately, he has been in the hospital for 29 days. I was optimistic before he became septic that he might survive this, although with a tracheostomy possibly permanently, but I am no longer optimistic that he can survive this. Job ID: [id number]
--- NOTE | 2020-10-07 16:03 | PDOC.HOSPP ---
- Subjective Encounter Date: 10/07/20 Encounter Time: 09:30 Subjective: is on trach and vent, does not wake up to verbal stimuli or move extremities grand daughter in room - Objective Vital Signs & Weight: Vital Signs (12 hours) Temp Pulse Resp Pulse Ox 10/07/20 15:59 34 H 10/07/20 14:00 32 H 10/07/20 12:00 97.5 F L 35 H 10/07/20 11:14 89 10/07/20 10:00 37 H 10/07/20 08:00 97.5 F L 36 H 92 L 10/07/20 06:29 90 10/07/20 05:44 30 H Weight Admit Weight 321 lb 3.416 oz Weight 344 lb 4.8 oz Most Recent Monitor Data Heart Rate from ECG 84 NIBP 104/57 NIBP BP-Mean 72 Respiration from ECG 35 SpO2 91 I&O: 10/06/20 10/07/20 10/08/20 06:59 06:59 06:59 Intake Total 1168.60 2131.70 680 Output Total 2185 4050 [facility] Balance -1016.40 -1918.30 -1280 Result Diagrams: 10/07/20 06:21 10/07/20 06:21 Hospitalist ROS - Medication Medications: Active Medications Generic Name Dose Route Start Last Admin Trade Name Freq PRN Reason Stop Dose Admin Albuterol/Ipratropium 3 ml 09/10/20 10:30 10/07/20 11:13 Ipratropium/Albuterol Sulfate 3 Ml Neb NEB 3 ml [id number] ALIYAH Administration Atorvastatin Calcium 40 mg 09/08/20 21:00 10/06/20 20:03 Atorvastatin Calcium 40 Mg Tab PO 40 mg HS ALIYAH Administration Carvedilol 25 mg 09/08/20 08:00 10/07/20 07:51 Carvedilol 25 Mg Tab PO 25 mg BID-WM ALIYAH Administration Diltiazem HCl 90 mg 09/29/20 09:00 10/07/20 07:51 Diltiazem Hcl 30 Mg Tablet PO 90 mg BID ALIYAH Administration Enoxaparin Sodium 40 mg 09/24/20 21:00 10/06/20 21:00 Enoxaparin Sodium 40 Mg/0.4 Ml Syringe SC 40 mg 2100 ALIYAH Administration Furosemide 60 mg 10/04/20 06:00 10/07/20 14:10 Furosemide 100 Mg/10 Ml Vial SLOW IVP 60 mg 0600,1400 ALIYAH Administration Hydralazine HCl 20 mg 09/16/20 07:55 09/22/20 05:12 Hydralazine 20 Mg/Ml Vial SLOW IVP 20 mg Q6H PRN Administration SBP>180 Insulin Glargine 30 units/ 0.3 mls @ 0.1 mls/hr 09/13/20 21:00 10/07/20 08:35 Miscellaneous Medication SC 0.3 mls BID ALIYAH Administration Micafungin Sodium 100 mg/ 100 mls @ 100 mls/hr 09/26/20 10:00 10/07/20 09:46 Sodium Chloride IVPB 100 mls 1000 ALIYAH Administration Norepinephrine Bitartrate 250 mls @ 0 mls/hr 09/27/20 12:15 09/28/20 12:54 Levophed IVPB 250 mls INF ALIYAH Administration Protocol Titrate Meropenem 2 gm/ Miscellaneous 100 mls @ 200 mls/hr 10/01/20 10:00 10/07/20 11:16 Medication 1 each/ Sodium IVPB 100 mls Chloride 0200,1000,1800 ALIYAH Administration Fentanyl 100 mls @ 0 mls/hr 10/03/20 14:45 10/07/20 10:24 Fentanyl Cadd IV 100 mls INF ALIYAH Administration Protocol Per Protocol Insulin Human Regular 0 units 09/08/20 20:03 10/07/20 10:21 Insulin Regular 300 Units/3 Ml Vial SC 3 units .AGGRESSIVE SLIDING PRN Administration Aggressive Correctional Scale Lorazepam 2 mg 09/30/20 20:25 10/06/20 11:17 Lorazepam 2 Mg/Ml Vial SLOW IVP 2 mg Q2H PRN Administration ANXIETY/AGITATION Methylprednisolone Sodium Succinate 20 mg 10/05/20 21:00 10/07/20 07:52 Methylprednisolone Sod Succ 40 Mg Vial IVP 20 mg Q12HR ALIYAH Administration Metoclopramide HCl 10 mg 09/14/20 18:50 09/22/20 03:14 Metoclopramide Hcl 10 Mg/2 Ml Vial IVP 10 mg Q6H PRN Administration Nausea/Vomiting Pantoprazole Sodium 40 mg 09/28/20 09:00 10/07/20 07:51 Pantoprazole 40 Mg Vial IVP 40 mg DAILY ALIYAH Administration Psyllium Hydrophilic Mucilloid 1 pk 10/05/20 09:00 10/07/20 07:51 Metamucil Pack PER TUBE 1 pk DAILY ALIYAH Administration Sodium Chloride 10 ml 09/09/20 09:00 10/07/20 07:52 Flush - Normal Saline 10 Ml Syringe IVF 10 ml Q12HR ALIYAH Administration Sterile Water 10 ml 10/02/20 19:15 10/02/20 20:18 Sterile Water 10 Ml Vial FS 10 ml PRN PRN Administration VEC RECONSTITUTION Tamsulosin HCl 0.4 mg 09/09/20 09:00 10/07/20 07:51 Tamsulosin Hcl 0.4 Mg Cap PO 0.4 mg DAILY ALIYAH Administration Vecuronium [place] 10 mg 10/02/20 19:12 10/02/20 20:18 Vecuronium 10 Mg Vial IVP 10 mg Q1H PRN Administration .AGITATION Hospitalist Exam Vitals: Vital Signs (12 hours) Temp Pulse Resp Pulse Ox 10/07/20 15:59 34 H 10/07/20 14:00 32 H 10/07/20 12:00 97.5 F L 35 H 10/07/20 11:14 89 10/07/20 10:00 37 H 10/07/20 08:00 97.5 F L 36 H 92 L 10/07/20 06:29 90 10/07/20 05:44 30 H Weight Admit Weight 321 lb 3.416 oz Weight 344 lb 4.8 oz Most Recent Monitor Data Heart Rate from ECG 84 NIBP 104/57 NIBP BP-Mean 72 Respiration from ECG 35 SpO2 91 General Appearance: ill appearing Eye: PERRL, anicteric sclera ENT: no oropharyngeal lesions, moist mucosa Neck: supple, no JVD Heart: RRR, no murmur Respiratory: no wheezes, rales, rhonchi Gastrointestinal: soft, non-tender, normal bowel sounds Gastrointestinal - other findings: peg+, wound vac+ Extremities: no cyanosis, 1+ LE edema Neurological: cranial nerve grossly intact, no focal deficits Hosp A/P (1) Acute respiratory failure with hypoxia Code(s): J96.01 - ACUTE RESPIRATORY FAILURE WITH HYPOXIA Status: Acute (2) COPD exacerbation Code(s): J44.1 - CHRONIC OBSTRUCTIVE PULMONARY DISEASE W (ACUTE) EXACERBATION Status: Acute (3) CHF exacerbation Code(s): I50.9 - HEART FAILURE, UNSPECIFIED Status: Chronic Qualifiers: Heart failure type: diastolic Qualified Code(s): I50.33 - Acute on chronic diastolic (congestive) heart failure (4) CRISTA (acute kidney injury) Code(s): N17.9 - ACUTE KIDNEY FAILURE, UNSPECIFIED Status: Resolved (5) Physical deconditioning Code(s): R53.81 - OTHER MALAISE Status: Acute (6) Pneumonia due to 2019-nCoV Code(s): U07.1 - COVID-19; J12.89 - OTHER VIRAL PNEUMONIA Status: Chronic (7) Atrial fibrillation Code(s): I48.91 - UNSPECIFIED ATRIAL FIBRILLATION Status: Chronic Qualifiers: Atrial fibrillation type: paroxysmal Qualified Code(s): I48.0 - Paroxysmal atrial fibrillation (8) BPH (benign prostatic hyperplasia) Code(s): N40.0 - BENIGN PROSTATIC HYPERPLASIA WITHOUT LOWER URINRY TRACT SYMP Status: Chronic Qualifiers: Lower urinary tract symptom presence: symptoms absent Qualified Code(s): N40.0 - Benign prostatic hyperplasia without lower urinary tract symptoms (9) Diabetes mellitus Code(s): E11.9 - TYPE 2 DIABETES MELLITUS WITHOUT COMPLICATIONS Status: Chronic Qualifiers: Diabetes mellitus type: type 2 Diabetes mellitus penitentiary insulin use: with penitentiary use Diabetes mellitus complication status: with hyperglycemia Qualified Code(s): E11.65 - Type 2 diabetes mellitus with hyperglycemia; 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 of 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 (10) Gout Code(s): M10.9 - GOUT, UNSPECIFIED Status: Chronic Qualifiers: Gout site: unspecified site Gout etiology: unspecified cause (11) HTN (hypertension) Code(s): I10 - ESSENTIAL (PRIMARY) HYPERTENSION Status: Chronic Qualifiers: Hypertension type: essential hypertension Qualified Code(s): I10 - Essential (primary) hypertension (12) Hyperlipidemia Code(s): E78.5 - HYPERLIPIDEMIA, UNSPECIFIED Status: Chronic Qualifiers: Hyperlipidemia type: mixed hyperlipidemia Qualified Code(s): E78.2 - Mixed hyperlipidemia (13) Morbid obesity Code(s): E66.01 - MORBID (SEVERE) OBESITY DUE TO EXCESS CALORIES Status: Chronic (14) Normocytic anemia Code(s): D64.9 - ANEMIA, UNSPECIFIED Status: Chronic (15) Obstructive sleep apnea Code(s): G47.33 - OBSTRUCTIVE SLEEP APNEA (ADULT) (PEDIATRIC) Status: Chronic - Plan is on merrem, vanc, micafungin, lasix 40mg bid, lantus 30 bid, steroids, alb inh, protonix flomax, lipitor, coreg, cardizem 90mg bid and lovenox for dvt prophylaxis. still has anasarca despite lasix bid, watch for renal function, diuresing well nearly 4 lts out last 24hrs. his peg got dislodged twice and currently has one for feeding and meds, still encephalopathic. he had enterococcus bacteremia and was dc's on zyvox during his previous hosp in [place] here. prognosis poor, this was d/w Ms.Brown Cobian daughter and gave her a full update on 10/06/20. She is aware of fathers deconditioning with anasarca and multiple med issues, she does not want cpr done on him if his heart stops but to continue vent and see if he can make any progress. D/w grand daughter at bedside and gave full updates, she is aware he is not responding to verbal stimuli and severe deconditioning 10/07/20. PT to work with him when he is off sedation aggressively.
[2020-10-07] MEDS: Atorvastatin Calcium 40 MG TAB PO SCH (20:48)
[2020-10-07] MEDS: Enoxaparin Sodium 40 MG/0.4 ML SYRINGE SC SCH (20:49)
[2020-10-08] MEDS: Meropenem 2 GM, Admixture Fee 1 EACH in Sodium Chloride 0.9% 100 ML IVPB SCH (03:23)
[2020-10-08 04:09] LABS: Anion Gap 14 mmol/L (10-20); BUN (Urea Nitrogen) 62 mg/dL (8.4-25.7); Calc. Creatinine Clearance 186 mL/min (70-130); Calcium 8.3 mg/dL (7.8-10.44); Carbon Dioxide 37 mmol/L (23-31); Chloride 100 mmol/L (98-107); Glucose 119 mg/dL (83-110); Potassium 3.9 mmol/L (3.5-5.1); Sodium 147 mmol/L (136-145)
[2020-10-08 04:23] LABS: Band 19 % (5-11); Hypochromia SLIGHT = 6-15 cells (100X) (0-5/hpf); Lymphocytes 2 % (21-51); MDiff Complete? YES; Mean Corpuscular HGB CONC 31.6 g/dL (32.0-36.0); Mean Corpuscular Hemoglobin 28.8 pg (27.0-31.0); Mean Corpuscular Volume 91.1 fL (78.0-98.0); Mean Platelet Volume 11.5 fL (7.4-10.4); Monocytes 3 % (0-10); Neutrophil 75 % (42-75); Platelet Count 114 thou/uL (130-400); Platelet Morphology Comment Appears Decreased; RBC Distribution Width 14.9 % (11.5-14.5); Reactive Lymphocytes 1 % (0-10); Red Blood Cell (RBC) Count 3.14 mill/uL (4.70-6.10); White Blood Cell (WBC) Count 11.1 thou/uL (4.8-10.8)
[2020-10-08] MEDS: Furosemide 100 MG/10 ML VIAL SLOW IVP SCH (05:34)
--- NOTE | 2020-10-08 07:43 | PRG ---
DATE OF SERVICE: 10/08/2020 SUBJECTIVE: Edison Freeman continues to do poorly. OBJECTIVE: VITAL SIGNS: Respiratory rate is in the 30s, FiO2 is 60%, heart rate 77, blood pressure 91/50. LUNGS: Remarkable for coarse diffuse wheezes. HEART: Regular rhythm. ABDOMEN: Soft. EXTREMITIES: Without clubbing or cyanosis. He has 4-extremity edema. Intake and outputs -8 yesterday, -2175 today. negative fluid balance. There is no real improvement in his chest radiograph today. White count 11.1, hemoglobin 9, and platelets 114,000. Sodium 147, potassium 3.9, chloride 100, bicarb 37, BUN 62, and creatinine 0.7. IMPRESSION: 1. Respiratory failure. 2. Chronic obstructive pulmonary disease exacerbation. 3. Tracheostomy. 4. Clinical sepsis after dislodged PEG, requiring a rectus sheath washout. 5. Probable noncardiogenic pulmonary edema. 6. Probable coexistent pneumonia. 7. Persistent encephalopathy. He is currently not weanable, and I really do not think he will survive all this because of premorbid deconditioning. Job ID: [id number]
[2020-10-08] MEDS: Carvedilol 25 MG TAB PO SCH (08:05)
--- NOTE | 2020-10-08 09:05 | RAD ---
PORTABLE CHEST: HISTORY: CCU followup on ventilator. COMPARISON: 10/07/2020. FINDINGS: The patient is rotated to start in the chest. The tracheostomy device is again noted. There are diffuse hazy infiltrates throughout both lungs. Bilateral effusions. Bilateral effusions and right basilar atelectasis. No evidence of significant change from yesterday. POS: AGW
[2020-10-08] MEDS: Micafungin 100 MG in Sodium Chloride 0.9% 100 ML IVPB SCH (09:25)
[2020-10-08] MEDS: Pantoprazole 40 MG VIAL IVP SCH (09:25)
[2020-10-08] MEDS: MEROPENEM 1 GM/50 ML 1 GM in Premix Bag 1 BAG IVPB SCH ×2 (09:25→17:32)
[2020-10-08] MEDS: methylPREDNISolone Sod Succ 40 MG VIAL IVP SCH ×2 (09:26→20:16)
[2020-10-08] MEDS: Potassium Chloride 20 MEQ TAB PER TUBE SCH ×2 (09:26→20:16)
[2020-10-08] MEDS: Metamucil PACK PER TUBE SCH (09:26)
[2020-10-08] MEDS: Tamsulosin HCl 0.4 MG CAP PO SCH (09:27)
[2020-10-08 12:22] LABS: Vancomycin, Trough 21.3 ug/mL
--- NOTE | 2020-10-08 12:22 | PRG ---
DATE OF SERVICE: 10/08/2020 SUBJECTIVE: Pete Hogan's wound was inspected today. The wound looks good. The wound does track into the rectus sheath upper. The gastrostomy tube is in proper position. The patient does have some slough left over from feeding tube infiltration into the rectus sheath, but this is improving. Drainage color is as expected. Previous CT scans of reviewed this with the radiologist and there is no such fistula. The patient is stable for transfer to [facility] wound care. At this point, I will see him as needed. Please call if necessary. Job ID: [id number]
[2020-10-08] MEDS ORDERED: Fentanyl CADD 100 ML ONE (12:57)
[2020-10-08] MEDS: Furosemide 40 MG/4 ML VIAL SLOW IVP SCH (14:39)
--- NOTE | 2020-10-08 16:01 | PDOC.HOSPP ---
- Subjective Encounter Date: 10/08/20 Encounter Time: 09:00 Subjective: is on vent, mild sedation, does not interact or wake up - Objective Vital Signs & Weight: Vital Signs (12 hours) Temp Pulse Pulse Pulse Resp BP BP 10/08/20 15:00 97.8 F 10/08/20 14:09 77 10/08/20 14:00 36 H 10/08/20 12:00 25 H 10/08/20 11:00 97.8 F 10/08/20 10:55 84 81 107/63 10/08/20 10:40 93 117/63 10/08/20 10:00 38 H 10/08/20 07:47 80 25 H 10/08/20 07:00 97.6 F 10/08/20 05:54 28 H BP Pulse Ox Pulse Ox Pulse Ox 10/08/20 15:00 10/08/20 14:09 10/08/20 14:00 10/08/20 12:00 10/08/20 11:00 10/08/20 10:55 117/63 94 L 92 L 10/08/20 10:40 10/08/20 10:00 10/08/20 07:47 96 10/08/20 07:00 10/08/20 05:54 Weight Admit Weight 321 lb 3.416 oz Weight 344 lb Most Recent Monitor Data Heart Rate from ECG 79 NIBP 110/60 NIBP BP-Mean 76 Respiration from ECG 34 SpO2 96 I&O: 10/07/20 10/08/20 10/09/20 06:59 06:59 06:59 Intake Total 2131.70 2059 180 Output Total 7550 4235 1590 [facility]1918.30 -2176 -1410 Result Diagrams: 10/08/20 02:58 10/08/20 02:58 Additional Labs: Accuchecks 10/08/20 10/08/20 10/07/20 10:09 04:29 20:11 POC Glucose 95 100 136 H 10/07/20 10/07/20 10/07/20 16:37 10:19 04:52 POC Glucose 142 H 176 H 139 H 10/06/20 10/06/20 20:07 04:11 POC Glucose 153 H 237 H Hospitalist ROS - Medication Medications: Active Medications Generic Name Dose Route Start Last Admin Trade Name Freq PRN Reason Stop Dose Admin Albuterol/Ipratropium 3 ml 09/10/20 10:30 10/08/20 14:09 Ipratropium/Albuterol Sulfate 3 Ml Neb NEB 3 ml [id number] ALIYAH Administration Atorvastatin Calcium 40 mg 09/08/20 21:00 10/07/20 20:48 Atorvastatin Calcium 40 Mg Tab PO 40 mg HS ALIYAH Administration Diltiazem HCl 90 mg 09/29/20 09:00 10/08/20 09:26 Diltiazem Hcl 30 Mg Tablet PO 90 mg BID ALIYAH Administration Enoxaparin Sodium 40 mg 09/24/20 21:00 10/07/20 20:49 Enoxaparin Sodium 40 Mg/0.4 Ml Syringe SC 40 mg 2100 ALIYAH Administration Furosemide 40 mg 10/08/20 14:00 10/08/20 14:39 Furosemide 40 Mg/4 Ml Vial SLOW IVP 40 mg 0600,1400 ALIYAH Administration Hydralazine HCl 20 mg 09/16/20 07:55 09/22/20 05:12 Hydralazine 20 Mg/Ml Vial SLOW IVP 20 mg Q6H PRN Administration SBP>180 Micafungin Sodium 100 mg/ 100 mls @ 100 mls/hr 09/26/20 10:00 10/08/20 09:25 Sodium Chloride IVPB 100 mls 1000 ALIYAH Administration Norepinephrine Bitartrate 250 mls @ 0 mls/hr 09/27/20 12:15 09/28/20 12:54 Levophed IVPB 250 mls INF ALIYAH Administration Protocol Titrate Fentanyl 100 mls @ 0 mls/hr 10/03/20 14:45 10/07/20 10:24 Fentanyl Cadd IV 100 mls INF ALIYAH Administration Protocol Per Protocol Meropenem 1 gm/ Device 50 mls @ 100 mls/hr 10/08/20 10:00 10/08/20 09:25 IVPB 50 mls 0200,1000,1800 ALIYAH Administration Insulin Human Regular 0 units 09/08/20 20:03 10/07/20 10:21 Insulin Regular 300 Units/3 Ml Vial SC 3 units .AGGRESSIVE SLIDING PRN Administration Aggressive Correctional Scale Lorazepam 2 mg 09/30/20 20:25 10/06/20 11:17 Lorazepam 2 Mg/Ml Vial SLOW IVP 2 mg Q2H PRN Administration ANXIETY/AGITATION Methylprednisolone Sodium Succinate 20 mg 10/05/20 21:00 10/08/20 09:26 Methylprednisolone Sod Succ 40 Mg Vial IVP 20 mg Q12HR ALIYAH Administration Metoclopramide HCl 10 mg 09/14/20 18:50 09/22/20 03:14 Metoclopramide Hcl 10 Mg/2 Ml Vial IVP 10 mg Q6H PRN Administration Nausea/Vomiting Pantoprazole Sodium 40 mg 09/28/20 09:00 10/08/20 09:25 Pantoprazole 40 Mg Vial IVP 40 mg DAILY ALIYAH Administration Potassium Chloride 40 meq 10/08/20 09:00 10/08/20 09:26 Potassium Chloride 20 Meq Tab PER TUBE 40 meq BID ALIYAH Administration Psyllium Hydrophilic Mucilloid 1 pk 10/05/20 09:00 10/08/20 09:26 Metamucil Pack PER TUBE 1 pk DAILY ALIYAH Administration Sodium Chloride 10 ml 09/09/20 09:00 10/08/20 09:27 Flush - Normal Saline 10 Ml Syringe IVF 10 ml Q12HR ALIYAH Administration Sterile Water 10 ml 10/02/20 19:15 10/02/20 20:18 Sterile Water 10 Ml Vial FS 10 ml PRN PRN Administration VEC RECONSTITUTION Tamsulosin HCl 0.4 mg 09/09/20 09:00 10/08/20 09:27 Tamsulosin Hcl 0.4 Mg Cap PO 0.4 mg DAILY ALIYAH Administration Vecuronium [place] 10 mg 10/02/20 19:12 10/02/20 20:18 Vecuronium 10 Mg Vial IVP 10 mg Q1H PRN Administration .AGITATION Hospitalist Exam Vitals: Vital Signs (12 hours) Temp Pulse Pulse Pulse Resp BP BP 10/08/20 15:00 97.8 F 10/08/20 14:09 77 10/08/20 14:00 36 H 10/08/20 12:00 25 H 10/08/20 11:00 97.8 F 10/08/20 10:55 84 81 107/63 10/08/20 10:40 93 117/63 10/08/20 10:00 38 H 10/08/20 07:47 80 25 H 10/08/20 07:00 97.6 F 10/08/20 05:54 28 H BP Pulse Ox Pulse Ox Pulse Ox 10/08/20 15:00 10/08/20 14:09 10/08/20 14:00 10/08/20 12:00 10/08/20 11:00 10/08/20 10:55 117/63 94 L 92 L 10/08/20 10:40 10/08/20 10:00 10/08/20 07:47 96 10/08/20 07:00 10/08/20 05:54 Weight Admit Weight 321 lb 3.416 oz Weight 344 lb Most Recent Monitor Data Heart Rate from ECG 79 NIBP 110/60 NIBP BP-Mean 76 Respiration from ECG 34 SpO2 96 General Appearance: ill appearing Eye: PERRL, anicteric sclera ENT: no oropharyngeal lesions, dry oral mucosa Neck: no JVD Neck - other findings: trach+ Heart: RRR, no murmur Respiratory: no wheezes, no rales, rhonchi Gastrointestinal: soft, non-tender, normal bowel sounds Gastrointestinal - other findings: peg+, wound vac+ Extremities: no cyanosis, 2+ LE edema Neurological: cranial nerve grossly intact, no focal deficits Hosp A/P (1) Acute respiratory failure with hypoxia Code(s): J96.01 - ACUTE RESPIRATORY FAILURE WITH HYPOXIA Status: Acute (2) COPD exacerbation Code(s): J44.1 - CHRONIC OBSTRUCTIVE PULMONARY DISEASE W (ACUTE) EXACERBATION Status: Acute (3) CHF exacerbation Code(s): I50.9 - HEART FAILURE, UNSPECIFIED Status: Chronic Qualifiers: Heart failure type: diastolic Qualified Code(s): I50.33 - Acute on chronic diastolic (congestive) heart failure (4) CRISTA (acute kidney injury) Code(s): N17.9 - ACUTE KIDNEY FAILURE, UNSPECIFIED Status: Resolved (5) Physical deconditioning Code(s): R53.81 - OTHER MALAISE Status: Acute (6) Pneumonia due to 2019-nCoV Code(s): U07.1 - COVID-19; J12.89 - OTHER VIRAL PNEUMONIA Status: Chronic (7) Atrial fibrillation Code(s): I48.91 - UNSPECIFIED ATRIAL FIBRILLATION Status: Chronic Qualifiers: Atrial fibrillation type: paroxysmal Qualified Code(s): I48.0 - Paroxysmal atrial fibrillation (8) BPH (benign prostatic hyperplasia) Code(s): N40.0 - BENIGN PROSTATIC HYPERPLASIA WITHOUT LOWER URINRY TRACT SYMP Status: Chronic Qualifiers: Lower urinary tract symptom presence: symptoms absent Qualified Code(s): N40.0 - Benign prostatic hyperplasia without lower urinary tract symptoms (9) Diabetes mellitus Code(s): E11.9 - TYPE 2 DIABETES MELLITUS WITHOUT COMPLICATIONS Status: Chronic Qualifiers: Diabetes mellitus type: type 2 Diabetes mellitus exterminator helper insulin use: with exterminator helper use Diabetes mellitus complication status: with hyperglycemia Qualified Code(s): E11.65 - Type 2 diabetes mellitus with hyperglycemia; Z79.4 - nursing home (current) use of insulin (10) Gout Code(s): M10.9 - GOUT, UNSPECIFIED Status: Chronic Qualifiers: Gout site: unspecified site Gout etiology: unspecified cause (11) HTN (hypertension) Code(s): I10 - ESSENTIAL (PRIMARY) HYPERTENSION Status: Chronic Qualifiers: Hypertension type: essential hypertension Qualified Code(s): I10 - Essential (primary) hypertension (12) Hyperlipidemia Code(s): E78.5 - HYPERLIPIDEMIA, UNSPECIFIED Status: Chronic Qualifiers: Hyperlipidemia type: mixed hyperlipidemia Qualified Code(s): E78.2 - Mixed hyperlipidemia (13) Morbid obesity Code(s): E66.01 - MORBID (SEVERE) OBESITY DUE TO EXCESS CALORIES Status: Chronic (14) Normocytic anemia Code(s): D64.9 - ANEMIA, UNSPECIFIED Status: Chronic (15) Obstructive sleep apnea Code(s): G47.33 - OBSTRUCTIVE SLEEP APNEA (ADULT) (PEDIATRIC) Status: Chronic - Plan is on merrem, vanc, micafungin, lasix 40mg bid, lantus 30 bid, steroids, alb inh, protonix flomax, lipitor, coreg, cardizem 90mg bid and lovenox for dvt prophylaxis. anasarca is better on lasix bid, watch for renal function, diuresing well from last 3 days. his peg got dislodged twice and currently has one for feeding and meds, still encephalopathic. he had enterococcus bacteremia and was dc's on zyvox during his previous hosp [place]. prognosis poor, this was d/w Ms.Brown Cobian daughter and gave her a full update on 10/06/20. She is aware of fathers deconditioning with anasarca and multiple med issues, she does not want cpr done on him if his heart stops but to continue vent and see if he can make any progress. D/w grand daughter at bedside and gave full updates, she is aware he is not responding to verbal stimuli and severe deconditioning 10/07/20. PT to work with him when he is off sedation aggressively. d/w Mrs.Sherry Hogan and gave an update, she is aware he is not responding/encephalopathic 10/08. d/w , there is no peg feed leaking, he has inspected wound this am, has cleared him for ltac. Needs vent settings to change to go to LTAC per CM (is on bilevel now).
[2020-10-08] MEDS: Carvedilol 3.125 MG TAB PO SCH (17:32)
[2020-10-08] MEDS: Atorvastatin Calcium 40 MG TAB PO SCH (20:16)
[2020-10-08] MEDS: Enoxaparin Sodium 40 MG/0.4 ML SYRINGE SC SCH (20:16)
[2020-10-08 21:27] LABS: Vancomycin, Random 19.6 ug/mL (See Comment)
[2020-10-08] MEDS ORDERED: Vancomycin 1 GM in Premix Bag 1 BAG IVPB SCH (22:30)
[2020-10-09] MEDS: MEROPENEM 1 GM/50 ML 1 GM in Premix Bag 1 BAG IVPB SCH ×3 (02:00→17:30)
[2020-10-09 03:13] LABS: Hemoglobin 9.1 g/dL (14.0-18.0); Mean Corpuscular Hemoglobin 29.6 pg (27.0-31.0); Mean Corpuscular Volume 92.7 fL (78.0-98.0); Mean Platelet Volume 11.6 fL (7.4-10.4); Platelet Count 101 thou/uL (130-400); RBC Distribution Width 15.1 % (11.5-14.5); Red Blood Cell (RBC) Count 3.06 mill/uL (4.70-6.10); White Blood Cell (WBC) Count 13.4 thou/uL (4.8-10.8)
[2020-10-09 03:24] LABS: Band 23 % (5-11); Lymphocytes 12 % (21-51); MDiff Complete? YES; Metamyelocyte 4 % (0-0); Monocytes 2 % (0-10); Myelocyte 1 % (0-0); Neutrophil 58 % (42-75); Nucleated RBC 2 % (0); Platelet Morphology Comment Appears Decreased
[2020-10-09 03:31] LABS: BUN (Urea Nitrogen) 67 mg/dL (8.4-25.7); Calc. Creatinine Clearance 163 mL/min (70-130); Calcium 8.3 mg/dL (7.8-10.44); Glucose 129 mg/dL (83-110)
[2020-10-09 03:40] LABS: Anion Gap 20 mmol/L (10-20); Carbon Dioxide 35 mmol/L (23-31); Chloride 101 mmol/L (98-107); Potassium 4.6 mmol/L (3.5-5.1); Sodium 151 mmol/L (136-145)
[2020-10-09] MEDS: Furosemide 40 MG/4 ML VIAL SLOW IVP SCH (06:25)
[2020-10-09] MEDS: Carvedilol 3.125 MG TAB PO SCH ×2 (08:00→16:14)
[2020-10-09] MEDS: Dextrose 5% in Water 1,000 ML IV SCH (08:00)
[2020-10-09] MEDS: Pantoprazole 40 MG VIAL IVP SCH (09:28)
[2020-10-09] MEDS: methylPREDNISolone Sod Succ 40 MG VIAL IVP SCH ×2 (09:29→20:26)
[2020-10-09] MEDS: Tamsulosin HCl 0.4 MG CAP PO SCH (09:29)
[2020-10-09] MEDS: Micafungin 100 MG in Sodium Chloride 0.9% 100 ML IVPB SCH (09:30)
[2020-10-09] MEDS: Potassium Chloride 20 MEQ TAB PER TUBE SCH (09:30)
[2020-10-09] MEDS: Metamucil PACK PER TUBE SCH (09:30)
[2020-10-09] MEDS: Insulin Regular 300 UNITS/3 ML VIAL SC PRN ×3 (10:05→21:45)
[2020-10-09] MEDS ORDERED: Fentanyl CADD 100 ML ONE (12:13)
[2020-10-09 13:31] VITALS: BMI 45.4
--- NOTE | 2020-10-09 14:18 | PDOC.HOSPP ---
- Subjective Encounter Date: 10/09/20 Encounter Time: 09:15 Subjective: is on vent, trach. Unresponsive on mild sedation - Objective Vital Signs & Weight: Vital Signs (12 hours) Temp Pulse Pulse Pulse Resp BP BP 10/09/20 12:00 98.5 F 29 H 10/09/20 11:02 95 10/09/20 10:22 92 101 H 120/68 119/66 10/09/20 10:00 16 10/09/20 08:00 97.5 F L 10/09/20 07:45 32 H 10/09/20 07:43 104 H 10/09/20 06:00 25 H 10/09/20 03:51 30 H 10/09/20 03:49 22 H Pulse Ox Pulse Ox Pulse Ox 10/09/20 12:00 10/09/20 11:02 10/09/20 10:22 93 L 95 10/09/20 10:00 10/09/20 08:00 10/09/20 07:45 97 10/09/20 07:43 10/09/20 06:00 10/09/20 03:51 10/09/20 03:49 Weight Admit Weight 326 lb 8.073 oz Weight 335 lb 1.642 oz Most Recent Monitor Data Heart Rate from ECG 83 NIBP 117/66 NIBP BP-Mean 83 Respiration from ECG 23 SpO2 93 I&O: 10/08/20 10/09/20 10/10/20 06:59 06:59 06:59 Intake Total 2059 2163.5 350 Output Total 4235 3260 1515 Balance -2176 -1096.5 -1165 Result Diagrams: 10/09/20 02:14 10/09/20 02:14 Additional Labs: Accuchecks 10/09/20 10/08/20 10/08/20 09:48 21:19 16:43 POC Glucose 191 H 72 74 Hospitalist ROS - Medication Medications: Active Medications Generic Name Dose Route Start Last Admin Trade Name Freq PRN Reason Stop Dose Admin Albuterol/Ipratropium 3 ml 09/10/20 10:30 10/09/20 11:01 Ipratropium/Albuterol Sulfate 3 Ml Neb NEB 3 ml [id number] ALIYAH Administration Atorvastatin Calcium 40 mg 09/08/20 21:00 10/08/20 20:16 Atorvastatin Calcium 40 Mg Tab PO 40 mg HS ALIYAH Administration Carvedilol 3.125 mg 10/08/20 17:00 10/09/20 08:00 Carvedilol 3.125 Mg Tab PO 3.125 mg BID-WM ALIYAH Administration Diltiazem HCl 90 mg 09/29/20 09:00 10/09/20 09:29 Diltiazem Hcl 30 Mg Tablet PO 90 mg BID ALIYAH Administration Enoxaparin Sodium 40 mg 09/24/20 21:00 10/08/20 20:16 Enoxaparin Sodium 40 Mg/0.4 Ml Syringe SC 40 mg 2100 ALIYAH Administration Hydralazine HCl 20 mg 09/16/20 07:55 09/22/20 05:12 Hydralazine 20 Mg/Ml Vial SLOW IVP 20 mg Q6H PRN Administration SBP>180 Micafungin Sodium 100 mg/ 100 mls @ 100 mls/hr 09/26/20 10:00 10/09/20 09:30 Sodium Chloride IVPB 100 mls 1000 ALIYAH Administration Norepinephrine Bitartrate 250 mls @ 0 mls/hr 09/27/20 12:15 09/28/20 12:54 Levophed IVPB 250 mls INF ALIYAH Administration Protocol Titrate Fentanyl 100 mls @ 0 mls/hr 10/03/20 14:45 10/07/20 10:24 Fentanyl Cadd IV 100 mls INF ALIYAH Administration Protocol Per Protocol Meropenem 1 gm/ Device 50 mls @ 100 mls/hr 10/08/20 10:00 10/09/20 09:46 IVPB 50 mls 0200,1000,1800 ALIYAH Administration Dextrose/Water 1,000 mls @ 50 mls/hr 10/09/20 07:15 10/09/20 08:00 D5w IV 1,000 mls .Q20H ALIYAH Administration Insulin Human Regular 0 units 09/08/20 20:03 10/09/20 10:05 Insulin Regular 300 Units/3 Ml Vial SC 3 units .AGGRESSIVE SLIDING PRN Administration Aggressive Correctional Scale Lorazepam 2 mg 09/30/20 20:25 10/06/20 11:17 Lorazepam 2 Mg/Ml Vial SLOW IVP 2 mg Q2H PRN Administration ANXIETY/AGITATION Methylprednisolone Sodium Succinate 20 mg 10/05/20 21:00 10/09/20 09:29 Methylprednisolone Sod Succ 40 Mg Vial IVP 20 mg Q12HR ALIYAH Administration Metoclopramide HCl 10 mg 09/14/20 18:50 09/22/20 03:14 Metoclopramide Hcl 10 Mg/2 Ml Vial IVP 10 mg Q6H PRN Administration Nausea/Vomiting Pantoprazole Sodium 40 mg 09/28/20 09:00 10/09/20 09:28 Pantoprazole 40 Mg Vial IVP 40 mg DAILY ALIYAH Administration Potassium Chloride 40 meq 10/08/20 09:00 10/09/20 09:30 Potassium Chloride 20 Meq Tab PER TUBE 40 meq BID ALIYAH Administration Psyllium Hydrophilic Mucilloid 1 pk 10/05/20 09:00 10/09/20 09:30 Metamucil Pack PER TUBE 1 pk DAILY ALIYAH Administration Sodium Chloride 10 ml 09/09/20 09:00 10/09/20 09:30 Flush - Normal Saline 10 Ml Syringe IVF 10 ml Q12HR ALIYAH Administration Sterile Water 10 ml 10/02/20 19:15 10/02/20 20:18 Sterile Water 10 Ml Vial FS 10 ml PRN PRN Administration VEC RECONSTITUTION Tamsulosin HCl 0.4 mg 09/09/20 09:00 10/09/20 09:29 Tamsulosin Hcl 0.4 Mg Cap PO 0.4 mg DAILY ALIYAH Administration Vecuronium [place] 10 mg 10/02/20 19:12 10/02/20 20:18 Vecuronium 10 Mg Vial IVP 10 mg Q1H PRN Administration .AGITATION Hospitalist Exam Vitals: Vital Signs (12 hours) Temp Pulse Pulse Pulse Resp BP BP 10/09/20 12:00 98.5 F 29 H 10/09/20 11:02 95 10/09/20 10:22 92 101 H 120/68 119/66 10/09/20 10:00 16 10/09/20 08:00 97.5 F L 10/09/20 07:45 32 H 10/09/20 07:43 104 H 10/09/20 06:00 25 H 10/09/20 03:51 30 H 10/09/20 03:49 22 H Pulse Ox Pulse Ox Pulse Ox 10/09/20 12:00 10/09/20 11:02 10/09/20 10:22 93 L 95 10/09/20 10:00 10/09/20 08:00 10/09/20 07:45 97 10/09/20 07:43 10/09/20 06:00 10/09/20 03:51 10/09/20 03:49 Weight Admit Weight 326 lb 8.073 oz Weight 335 lb 1.642 oz Most Recent Monitor Data Heart Rate from ECG 83 NIBP 117/66 NIBP BP-Mean 83 Respiration from ECG 23 SpO2 93 General Appearance: ill appearing Eye: PERRL, anicteric sclera ENT: no oropharyngeal lesions, moist mucosa Neck: no JVD Neck - other findings: trach+ Heart: RRR, no murmur Respiratory: no wheezes, no rales, rhonchi Gastrointestinal: soft, non-tender, non-distended, normal bowel sounds Gastrointestinal - other findings: peg+ Extremities: no cyanosis, 1+ LE edema Neurological: cranial nerve grossly intact, no focal deficits Hosp A/P (1) Acute respiratory failure with hypoxia Code(s): J96.01 - ACUTE RESPIRATORY FAILURE WITH HYPOXIA Status: Acute (2) COPD exacerbation Code(s): J44.1 - CHRONIC OBSTRUCTIVE PULMONARY DISEASE W (ACUTE) EXACERBATION Status: Acute (3) CHF exacerbation Code(s): I50.9 - HEART FAILURE, UNSPECIFIED Status: Chronic Qualifiers: Heart failure type: diastolic Qualified Code(s): I50.33 - Acute on chronic diastolic (congestive) heart failure (4) CRISTA (acute kidney injury) Code(s): N17.9 - ACUTE KIDNEY FAILURE, UNSPECIFIED Status: Resolved (5) Physical deconditioning Code(s): R53.81 - OTHER MALAISE Status: Acute (6) Pneumonia due to 2019-nCoV Code(s): U07.1 - COVID-19; J12.89 - OTHER VIRAL PNEUMONIA Status: Chronic (7) Atrial fibrillation Code(s): I48.91 - UNSPECIFIED ATRIAL FIBRILLATION Status: Chronic Qualifiers: Atrial fibrillation type: paroxysmal Qualified Code(s): I48.0 - Paroxysmal atrial fibrillation (8) BPH (benign prostatic hyperplasia) Code(s): N40.0 - BENIGN PROSTATIC HYPERPLASIA WITHOUT LOWER URINRY TRACT SYMP Status: Chronic Qualifiers: Lower urinary tract symptom presence: symptoms absent Qualified Code(s): N40.0 - Benign prostatic hyperplasia without lower urinary tract symptoms (9) Diabetes mellitus Code(s): E11.9 - TYPE 2 DIABETES MELLITUS WITHOUT COMPLICATIONS Status: Chronic Qualifiers: Diabetes mellitus type: type 2 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: with care 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 use Diabetes mellitus complication status: with hyperglycemia Qualified Code(s): E11.65 - Type 2 diabetes mellitus with hyperglycemia; Z79.4 - half-way (current) use of insulin (10) Gout Code(s): M10.9 - GOUT, UNSPECIFIED Status: Chronic Qualifiers: Gout site: unspecified site Gout etiology: unspecified cause (11) HTN (hypertension) Code(s): I10 - ESSENTIAL (PRIMARY) HYPERTENSION Status: Chronic Qualifiers: Hypertension type: essential hypertension Qualified Code(s): I10 - Essential (primary) hypertension (12) Hyperlipidemia Code(s): E78.5 - HYPERLIPIDEMIA, UNSPECIFIED Status: Chronic Qualifiers: Hyperlipidemia type: mixed hyperlipidemia Qualified Code(s): E78.2 - Mixed hyperlipidemia (13) Morbid obesity Code(s): E66.01 - MORBID (SEVERE) OBESITY DUE TO EXCESS CALORIES Status: Chronic (14) Normocytic anemia Code(s): D64.9 - ANEMIA, UNSPECIFIED Status: Chronic (15) Obstructive sleep apnea Code(s): G47.33 - OBSTRUCTIVE SLEEP APNEA (ADULT) (PEDIATRIC) Status: Chronic - Plan is on merrem, vanc, micafungin, lasix 40mg bid, lantus 30 bid, steroids, alb inh, protonix flomax, lipitor, coreg, cardizem 90mg bid and lovenox for dvt prophylaxis. anasarca is better on lasix bid, watch for renal function, diuresing well from last 4 days, sodium is up a bit. his peg got dislodged twice and currently has one for feeding and meds, still encephalopathic. he had enterococcus bacteremia and was dc's on zyvox during his previous hosp in [place] here. prognosis poor, this was d/w Ms.Brown Cobian daughter and gave her a full update on 10/06/20. She is aware of fathers deconditioning with anasarca and multiple med issues, she does not want cpr done on him if his heart stops but to continue vent and see if he can make any progress. D/w grand daughter at bedside and gave full updates, she is aware he is not responding to verbal stimuli and severe deconditioning 10/07/20. PT to work with him when he is off sedation aggressively. d/w .Aranza Hogan and gave an update, she is aware he is not responding/encephalopathic 10/08, 10/09 (says a brother is coming tomorrow and they will all take a collective decision for possible hospice??) Needs vent settings to change to go to LTAC per CM (is on bilevel now).
--- NOTE | 2020-10-09 14:26 | PRG ---
DATE OF SERVICE: 10/09/2020 SUBJECTIVE: Ptee crespo is clinically unchanged. His intake and outputs negative 1096. Hemodynamics are stable. OBJECTIVE: VITAL SIGNS: Blood pressure is 117/66, heart rates in the 80s, respiratory rates in the 20s. LUNGS: Remarkable for mild wheezes. HEART: Regular rhythm. ABDOMEN: Soft. EXTREMITIES: Unchanged. LABORATORY DATA: White count 13.4, hemoglobin 9.1, platelets 101,000. Sodium 151, potassium 4.6, chloride 101, bicarb 35, BUN 67, creatinine 0.8. IMPRESSION: 1. Chronic obstructive pulmonary disease exacerbation. 2. Status post clinical sepsis. 3. COVID in the past, not an issue this admission. 4. Status post trach and PEG. Given that his BUN and creatinine are increased, his Lasix dose was adjusted downward by Dr. Jean. We will continue to follow. His prognosis is extremely guarded. Job ID: [id number]
[2020-10-09] MEDS: Furosemide 20 MG/2 ML VIAL SLOW IVP SCH (14:40)
--- NOTE | 2020-10-09 16:06 | PDOC.PALPN ---
Palliative Progress Note - Subjective Trach with mechanical ventilation, non responsive - Objective Vital Signs: Vital Signs - Most Recent Temp Pulse Resp BP Pulse Ox 98.5 F 94 29 H 120/68 93 L 10/09/20 12:00 10/09/20 15:29 10/09/20 14:00 10/09/20 10:22 10/09/20 10:22 - Physical Exam Constitutional: encephalitic, ill appearing HEENT: moist MMs Deviation from normal: Trach/ Bilaterally adventicious Cardiovascular: RRR, diminished peripheral pulses Gastrointestinal: soft, non-tender, incontinent Deviation from normal: PEG Genitourinary: ma catheter Musculoskeletal: no cyanosis, diffuse muscle atrophy Skin: cap refill <2 seconds, fragile Deviation from normal: encephalopathic - Assessment (1) Respiratory failure requiring intubation Code(s): J96.90 - RESPIRATORY FAILURE, UNSP, UNSP W HYPOXIA OR HYPERCAPNIA Current Visit: Yes Status: Acute (2) Palliative care encounter Code(s): Z51.5 - ENCOUNTER FOR PALLIATIVE CARE Current Visit: No Status: Acute (3) Physical deconditioning Code(s): R53.81 - OTHER MALAISE Current Visit: No Status: Acute (4) Pneumonia due to 2019-nCoV Code(s): U07.1 - COVID-19; J12.89 - OTHER VIRAL PNEUMONIA Current Visit: No Status: Chronic (5) CHF (congestive heart failure) Code(s): I50.9 - HEART FAILURE, UNSPECIFIED Current Visit: No Status: Chronic Qualifiers: Heart failure type: diastolic Heart failure chronicity: chronic Qualified Code(s): I50.32 - Chronic diastolic (congestive) heart failure (6) COPD (chronic obstructive pulmonary disease) Current Visit: No Status: Chronic Qualifiers: Chronic bronchitis type: unspecified - Plan Plan: Supportive call. Patient daughter is aware of poor prognosis, decision may be difficult secondary to recent loss of her . JEWEL and Aranza confirmed family meeting for Oct 12 for a family meeting at 11am Emotional Support Therapeutic listening [30] minutes spent on this encounter with >50% of the time in counseling and coordination of care. - ROS Non Response: due to endotracheal tube, due to mental status
[2020-10-09] MEDS: Potassium Chloride 20 MEQ TAB PO SCH (16:14)
[2020-10-09] MEDS: Enoxaparin Sodium 40 MG/0.4 ML SYRINGE SC SCH (20:25)
[2020-10-09] MEDS: Atorvastatin Calcium 40 MG TAB PO SCH (20:26)
[2020-10-10] MEDS: MEROPENEM 1 GM/50 ML 1 GM in Premix Bag 1 BAG IVPB SCH ×3 (01:40→17:36)
[2020-10-10] MEDS: Dextrose 5% in Water 1,000 ML IV SCH ×2 (03:15→09:05)
[2020-10-10 04:50] LABS: #Monocytes 0.4 thou/uL (0.11-0.59); #Neutrophils 10.5 thou/uL (1.40-6.50); %Eosinophils 0.4 % (0.0-10.0); %Lymphocytes 15.4 % (21.0-51.0); %Neutrophils 81.2 % (42.0-75.0); Mean Corpuscular HGB CONC 31.8 g/dL (32.0-36.0); Mean Corpuscular Hemoglobin 29.2 pg (27.0-31.0); Mean Corpuscular Volume 91.9 fL (78.0-98.0); Platelet Count 110 thou/uL (130-400); RBC Distribution Width 15.5 % (11.5-14.5); White Blood Cell (WBC) Count 12.9 thou/uL (4.8-10.8)
[2020-10-10 05:02] LABS: BUN (Urea Nitrogen) 67 mg/dL (8.4-25.7); Calc. Creatinine Clearance 153 mL/min (70-130); Calcium 8.5 mg/dL (7.8-10.44); Glucose 324 mg/dL (83-110)
[2020-10-10 05:11] LABS: Anion Gap 17 mmol/L (10-20); Carbon Dioxide 38 mmol/L (23-31); Chloride 98 mmol/L (98-107); Potassium 4.7 mmol/L (3.5-5.1); Sodium 148 mmol/L (136-145)
[2020-10-10] MEDS: Insulin Regular 300 UNITS/3 ML VIAL SC PRN ×4 (05:35→21:47)
[2020-10-10] MEDS: Furosemide 20 MG/2 ML VIAL SLOW IVP SCH ×2 (05:36→13:57)
[2020-10-10] MEDS ORDERED: Vancomycin HCl 750 MG in Sodium Chloride 0.9% 250 ML 250 ML IVPB SCH (06:45)
[2020-10-10] MEDS: Potassium Chloride 20 MEQ TAB PO SCH ×2 (09:13→17:36)
[2020-10-10] MEDS: Carvedilol 3.125 MG TAB PO SCH ×2 (09:13→17:36)
[2020-10-10] MEDS: Metamucil PACK PER TUBE SCH (09:14)
[2020-10-10] MEDS: Tamsulosin HCl 0.4 MG CAP PO SCH (09:14)
[2020-10-10] MEDS: Micafungin 100 MG in Sodium Chloride 0.9% 100 ML IVPB SCH (09:15)
[2020-10-10] MEDS: methylPREDNISolone Sod Succ 40 MG VIAL IVP SCH ×2 (09:15→20:55)
[2020-10-10] MEDS: Pantoprazole 40 MG VIAL IVP SCH (09:15)
[2020-10-10] MEDS ORDERED: Fentanyl CADD 100 ML ONE (11:29)
--- NOTE | 2020-10-10 15:05 | PDOC.HOSPP ---
- Subjective Encounter Date: 10/10/20 Encounter Time: 09:40 Subjective: is on vent, unresponsive to stimulus - Objective Vital Signs & Weight: Vital Signs (12 hours) Temp Pulse Pulse Pulse Resp BP BP 10/10/20 14:32 102 H 10/10/20 14:00 23 H 10/10/20 13:12 96 99/68 10/10/20 12:00 97.7 F 28 H 10/10/20 11:07 95 10/10/20 10:31 89 88 142/89 H 10/10/20 10:00 31 H 10/10/20 08:00 97.5 F L 10/10/20 07:42 100 10/10/20 07:04 18 10/10/20 05:49 24 H 10/10/20 04:00 98.4 F 21 H BP Pulse Ox Pulse Ox Pulse Ox 10/10/20 14:32 10/10/20 14:00 10/10/20 13:12 10/10/20 12:00 10/10/20 11:07 10/10/20 10:31 99/67 95 95 10/10/20 10:00 10/10/20 08:00 10/10/20 07:42 10/10/20 07:04 97 10/10/20 05:49 10/10/20 04:00 Weight Admit Weight 326 lb 8.073 oz Weight 334 lb 12.8 oz Most Recent Monitor Data Heart Rate from ECG 99 NIBP 168/79 NIBP BP-Mean 108 Respiration from ECG 30 SpO2 91 I&O: 10/09/20 10/10/20 10/11/20 06:59 06:59 06:59 Intake Total 2163.5 3296 260 Output Total 3260 3425 1505 Balance 1096.5 -129 -1245 Result Diagrams: 10/10/20 03:45 10/10/20 03:45 Additional Labs: Accuchecks 10/10/20 10/09/20 10/09/20 04:24 21:43 15:54 POC Glucose 272 H 182 H 178 H Hospitalist ROS - Medication Medications: Active Medications Generic Name Dose Route Start Last Admin Trade Name Freq PRN Reason Stop Dose Admin Albuterol/Ipratropium 3 ml 09/10/20 10:30 10/10/20 14:32 Ipratropium/Albuterol Sulfate 3 Ml Neb NEB 3 ml [id number] ALIYAH Administration Atorvastatin Calcium 40 mg 09/08/20 21:00 10/09/20 20:26 Atorvastatin Calcium 40 Mg Tab PO 40 mg HS ALIYAH Administration Carvedilol 3.125 mg 10/08/20 17:00 10/10/20 09:13 Carvedilol 3.125 Mg Tab PO 3.125 mg BID-WM ALIYAH Administration Diltiazem HCl 90 mg 09/29/20 09:00 10/10/20 09:13 Diltiazem Hcl 30 Mg Tablet PO 90 mg BID ALIYAH Administration Enoxaparin Sodium 40 mg 09/24/20 21:00 10/09/20 20:25 Enoxaparin Sodium 40 Mg/0.4 Ml Syringe SC 40 mg 2100 ALIYAH Administration Furosemide 20 mg 10/09/20 14:00 10/10/20 13:57 Furosemide 20 Mg/2 Ml Vial SLOW IVP 20 mg 0600,1400 ALIYAH Administration Hydralazine HCl 20 mg 09/16/20 07:55 09/22/20 05:12 Hydralazine 20 Mg/Ml Vial SLOW IVP 20 mg Q6H PRN Administration SBP>180 Micafungin Sodium 100 mg/ 100 mls @ 100 mls/hr 09/26/20 10:00 10/10/20 09:15 Sodium Chloride IVPB 100 mls 1000 ALIYAH Administration Norepinephrine Bitartrate 250 mls @ 0 mls/hr 09/27/20 12:15 09/28/20 12:54 Levophed IVPB 250 mls INF ALIYAH Administration Protocol Titrate Fentanyl 100 mls @ 0 mls/hr 10/03/20 14:45 10/07/20 10:24 Fentanyl Cadd IV 100 mls INF ALIYAH Administration Protocol Per Protocol Meropenem 1 gm/ Device 50 mls @ 100 mls/hr 10/08/20 10:00 10/10/20 09:06 IVPB 50 mls 0200,1000,1800 ALIYAH Administration Dextrose/Water 1,000 mls @ 50 mls/hr 10/09/20 07:15 10/10/20 09:05 D5w IV 1,000 mls .Q20H ALIYAH Administration Insulin Human Regular 0 units 09/08/20 20:03 10/10/20 10:01 Insulin Regular 300 Units/3 Ml Vial SC 6 units .AGGRESSIVE SLIDING PRN Administration Aggressive Correctional Scale Lorazepam 2 mg 09/30/20 20:25 10/06/20 11:17 Lorazepam 2 Mg/Ml Vial SLOW IVP 2 mg Q2H PRN Administration ANXIETY/AGITATION Methylprednisolone Sodium Succinate 20 mg 10/05/20 21:00 10/10/20 09:15 Methylprednisolone Sod Succ 40 Mg Vial IVP 20 mg Q12HR ALIYAH Administration Metoclopramide HCl 10 mg 09/14/20 18:50 09/22/20 03:14 Metoclopramide Hcl 10 Mg/2 Ml Vial IVP 10 mg Q6H PRN Administration Nausea/Vomiting Pantoprazole Sodium 40 mg 09/28/20 09:00 10/10/20 09:15 Pantoprazole 40 Mg Vial IVP 40 mg DAILY ALIYAH Administration Potassium Chloride 20 meq 10/09/20 17:00 10/10/20 09:13 Potassium Chloride 20 Meq Tab PO 20 meq BID-WM ALIYAH Administration Psyllium Hydrophilic Mucilloid 1 pk 10/05/20 09:00 10/10/20 09:14 Metamucil Pack PER TUBE 1 pk DAILY ALIYAH Administration Sodium Chloride 10 ml 09/09/20 09:00 10/10/20 09:14 Flush - Normal Saline 10 Ml Syringe IVF 10 ml Q12HR ALIYAH Administration Sterile Water 10 ml 10/02/20 19:15 10/02/20 20:18 Sterile Water 10 Ml Vial FS 10 ml PRN PRN Administration VEC RECONSTITUTION Tamsulosin HCl 0.4 mg 09/09/20 09:00 10/10/20 09:14 Tamsulosin Hcl 0.4 Mg Cap PO 0.4 mg DAILY ALIYAH Administration Vecuronium [place] 10 mg 10/02/20 19:12 10/02/20 20:18 Vecuronium 10 Mg Vial IVP 10 mg Q1H PRN Administration .AGITATION Hospitalist Exam Vitals: Vital Signs (12 hours) Temp Pulse Pulse Pulse Resp BP BP 10/10/20 14:32 102 H 10/10/20 14:00 23 H 10/10/20 13:12 96 99/68 10/10/20 12:00 97.7 F 28 H 10/10/20 11:07 95 10/10/20 10:31 89 88 142/89 H 10/10/20 10:00 31 H 10/10/20 08:00 97.5 F L 10/10/20 07:42 100 10/10/20 07:04 18 10/10/20 05:49 24 H 10/10/20 04:00 98.4 F 21 H BP Pulse Ox Pulse Ox Pulse Ox 10/10/20 14:32 10/10/20 14:00 10/10/20 13:12 10/10/20 12:00 10/10/20 11:07 10/10/20 10:31 99/67 95 95 10/10/20 10:00 10/10/20 08:00 10/10/20 07:42 10/10/20 07:04 97 10/10/20 05:49 10/10/20 04:00 Weight Admit Weight 326 lb 8.073 oz Weight 334 lb 12.8 oz Most Recent Monitor Data Heart Rate from ECG 99 NIBP 168/79 NIBP BP-Mean 108 Respiration from ECG 30 SpO2 91 General Appearance: ill appearing Eye: PERRL, anicteric sclera ENT: no oropharyngeal lesions, moist mucosa Neck: no JVD Neck - other findings: trach+ Heart: RRR, no murmur Respiratory: no wheezes, no rales, rhonchi Gastrointestinal: soft, non-distended, normal bowel sounds Gastrointestinal - other findings: peg+ Extremities: no cyanosis, 1+ LE edema Neurological: cranial nerve grossly intact, no focal deficits Hosp A/P (1) Acute respiratory failure with hypoxia Code(s): J96.01 - ACUTE RESPIRATORY FAILURE WITH HYPOXIA Status: Acute (2) COPD exacerbation Code(s): J44.1 - CHRONIC OBSTRUCTIVE PULMONARY DISEASE W (ACUTE) EXACERBATION Status: Acute (3) CHF exacerbation Code(s): I50.9 - HEART FAILURE, UNSPECIFIED Status: Chronic Qualifiers: Heart failure type: diastolic Qualified Code(s): I50.33 - Acute on chronic diastolic (congestive) heart failure (4) CRISTA (acute kidney injury) Code(s): N17.9 - ACUTE KIDNEY FAILURE, UNSPECIFIED Status: Resolved (5) Physical deconditioning Code(s): R53.81 - OTHER MALAISE Status: Acute (6) Pneumonia due to 2019-nCoV Code(s): U07.1 - COVID-19; J12.89 - OTHER VIRAL PNEUMONIA Status: Chronic (7) Atrial fibrillation Code(s): I48.91 - UNSPECIFIED ATRIAL FIBRILLATION Status: Chronic Qualifiers: Atrial fibrillation type: paroxysmal Qualified Code(s): I48.0 - Paroxysmal atrial fibrillation (8) BPH (benign prostatic hyperplasia) Code(s): N40.0 - BENIGN PROSTATIC HYPERPLASIA WITHOUT LOWER URINRY TRACT SYMP Status: Chronic Qualifiers: Lower urinary tract symptom presence: symptoms absent Qualified Code(s): N40.0 - Benign prostatic hyperplasia without lower urinary tract symptoms (9) Diabetes mellitus Code(s): E11.9 - TYPE 2 DIABETES MELLITUS WITHOUT COMPLICATIONS Status: Chronic Qualifiers: Diabetes mellitus type: type 2 Diabetes mellitus long-term insulin use: with long-term use Diabetes mellitus complication status: with hyperglycemia Qualified Code(s): E11.65 - Type 2 diabetes mellitus with hyperglycemia; 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 of 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 (10) Gout Code(s): M10.9 - GOUT, UNSPECIFIED Status: Chronic Qualifiers: Gout site: unspecified site Gout etiology: unspecified cause (11) HTN (hypertension) Code(s): I10 - ESSENTIAL (PRIMARY) HYPERTENSION Status: Chronic Qualifiers: Hypertension type: essential hypertension Qualified Code(s): I10 - Essential (primary) hypertension (12) Hyperlipidemia Code(s): E78.5 - HYPERLIPIDEMIA, UNSPECIFIED Status: Chronic Qualifiers: Hyperlipidemia type: mixed hyperlipidemia Qualified Code(s): E78.2 - Mixed hyperlipidemia (13) Morbid obesity Code(s): E66.01 - MORBID (SEVERE) OBESITY DUE TO EXCESS CALORIES Status: Chronic (14) Normocytic anemia Code(s): D64.9 - ANEMIA, UNSPECIFIED Status: Chronic (15) Obstructive sleep apnea Code(s): G47.33 - OBSTRUCTIVE SLEEP APNEA (ADULT) (PEDIATRIC) Status: Chronic - Plan is on merrem, vanc, micafungin, lasix 40mg bid, lantus 30 bid, steroids, alb inh, protonix flomax, lipitor, coreg, cardizem 90mg bid and lovenox for dvt prophylaxis. anasarca is better on lasix bid, watch for renal function, diuresing well from last 5 days, sodium is up a bit. his peg got dislodged twice and currently has one for feeding and meds, still encephalopathic. he had enterococcus bacteremia and was dc's on zyvox during [place] previous hosp [place]. prognosis poor, this was d/w Ms.Brown Cobian daughter and gave her a full update on 10/06/20. She is aware of fathers deconditioning with anasarca and multiple med issues, she does not want cpr done on him if his heart stops but to continue vent and see if he can make any progress. D/w grand daughter at bedside and gave full updates, she is aware he is not responding to verbal stimuli and severe deconditioning 10/07/20. PT to work with him when he is off sedation aggressively. d/w Mrs.Sherry Hogan and gave an update, she is aware he is not responding/encephalopathic 10/08, 10/09 (says a brother is coming tomorrow or thursday and they will all take a collective decision for possible hospice? severe deconditioning
--- NOTE | 2020-10-10 15:08 | PRG ---
DATE OF SERVICE: 10/10/2020 SUBJECTIVE: Pete Hogan remains mechanically ventilated. He switched to volume ventilation today. Heart rate is 102, FiO2 is at 55, blood pressure 99/68. He continues to diurese nicely, but continues to have anasarca on exam. OBJECTIVE: LUNGS: Remarkable for coarse equal breath sounds. HEART: Regular rhythm. ABDOMEN: Soft. EXTREMITIES: Without asymmetry. LABORATORY DATA: White count 12.9, hemoglobin 9, platelets 110. Sodium 148, potassium 4.7, chloride 98, bicarb 38, BUN 67, creatinine 0.83. IMPRESSION: 1. Respiratory failure, associated with chronic obstructive pulmonary disease exacerbation, which led to a tracheostomy and a PEG. 2. Clinical sepsis, secondary to displacement of his PEG into his rectus sheath. 3. Noncardiogenic pulmonary edema. 4. Past COVID infection leading to severe deconditioning. 5. Chronic atrial fibrillation. 6. Obesity. I really cannot see anyway he can survive this. There was supposed to be a family meeting today, I was told, and then this was moved back to Thursday. Job ID: [id number]
[2020-10-10] MEDS: Enoxaparin Sodium 40 MG/0.4 ML SYRINGE SC SCH (20:56)
[2020-10-10] MEDS: Atorvastatin Calcium 40 MG TAB PO SCH (20:56)
[2020-10-11] MEDS: MEROPENEM 1 GM/50 ML 1 GM in Premix Bag 1 BAG IVPB SCH ×3 (02:09→17:57)
[2020-10-11 05:13] LABS: BUN (Urea Nitrogen) 60 mg/dL (8.4-25.7); Calc. Creatinine Clearance 152 mL/min (70-130); Calcium 8.4 mg/dL (7.8-10.44); Glucose 257 mg/dL (83-110)
[2020-10-11 05:22] LABS: Anion Gap 20 mmol/L (10-20); Carbon Dioxide 34 mmol/L (23-31); Chloride 97 mmol/L (98-107); Potassium 4.8 mmol/L (3.5-5.1); Sodium 146 mmol/L (136-145)
[2020-10-11 05:24] LABS: Band 25 % (5-11); Hemoglobin 9.3 g/dL (14.0-18.0); Lymphocytes 10 % (21-51); MDiff Complete? YES; Mean Corpuscular HGB CONC 31.6 g/dL (32.0-36.0); Mean Corpuscular Volume 91.6 fL (78.0-98.0); Mean Platelet Volume 12.4 fL (7.4-10.4); Monocytes 4 % (0-10); Neutrophil 61 % (42-75); Nucleated RBC 1 % (0); Platelet Count 121 thou/uL (130-400); Platelet Morphology Comment Appears Decreased; RBC Distribution Width 15.7 % (11.5-14.5); Red Blood Cell (RBC) Count 3.21 mill/uL (4.70-6.10); White Blood Cell (WBC) Count 13.8 thou/uL (4.8-10.8)
[2020-10-11] MEDS: Insulin Regular 300 UNITS/3 ML VIAL SC PRN ×3 (06:05→21:41)
[2020-10-11] MEDS: Furosemide 20 MG/2 ML VIAL SLOW IVP SCH ×2 (06:12→14:51)
--- NOTE | 2020-10-11 08:01 | RAD ---
PORTABLE CHEST: HISTORY: Pneumonia followup on ventilator. COMPARISON: 10/08/2020. FINDINGS: The patient is again rotated distorting the chest. Tracheostomy device and central line are unchange d. Diffuse bilateral lung infiltrates again noted. IMPRESSION: Bilateral lung infiltrates, not significantly changed. POS: AGW
[2020-10-11] MEDS: Tamsulosin HCl 0.4 MG CAP PO SCH (08:21)
[2020-10-11] MEDS: Potassium Chloride 20 MEQ TAB PO SCH ×2 (08:22→17:57)
[2020-10-11] MEDS: Pantoprazole 40 MG VIAL IVP SCH (08:22)
[2020-10-11] MEDS: Metamucil PACK PER TUBE SCH (08:22)
[2020-10-11] MEDS: methylPREDNISolone Sod Succ 40 MG VIAL IVP SCH ×2 (08:22→20:50)
[2020-10-11] MEDS: Carvedilol 3.125 MG TAB PO SCH ×2 (08:22→17:57)
--- NOTE | 2020-10-11 10:12 | PRG ---
DATE OF SERVICE: 10/11/2020 SUBJECTIVE: Mr. Hogan remains mechanically ventilated. He has a minute volume of about 14 L/minute. OBJECTIVE: VITAL SIGNS: His heart rate is 120, FiO2 is at 55%, blood pressure 115/86. His fluid balance today is positive 2380. He still has four-extremity edema. LABORATORY DATA: White count is 13.8, hemoglobin 9.3, platelets 121. Sodium 146, potassium 4.8, chloride 97, bicarb 34, BUN 60, creatinine 0.83. Chest x-ray is unchanged. IMPRESSION: 1. Respiratory failure. 2. Adult respiratory distress syndrome after sepsis after dislodged PEG that required a rectus sheath washout. 3. Extreme deconditioning prior to this admission. 4. COVID-19 infection prior to this admission. 5. Chronic obstructive pulmonary disease exacerbation leading to this admission, which led to a trach and a PEG. He was weaned from mechanical ventilation when he became septic from his PEG dislodgement. I do not feel he is strong enough to wean from mechanical ventilation, I doubt he will survive this. There is tentatively a family meeting I believe tomorrow with Palliative Care. Job ID: [id number]
[2020-10-11] MEDS: Micafungin 100 MG in Sodium Chloride 0.9% 100 ML IVPB SCH (10:42)
[2020-10-11] MEDS: Fentanyl CADD 100 ML IV SCH (13:01)
--- NOTE | 2020-10-11 16:30 | PDOC.HOSPP ---
- Subjective Encounter Date: 10/11/20 Encounter Time: 09:20 Subjective: on vent, does not interact or wake up, has sedation. - Objective Vital Signs & Weight: Vital Signs (12 hours) Temp Pulse Pulse Pulse Resp BP BP 10/11/20 14:51 116 H 10/11/20 12:00 97.7 F 33 H 10/11/20 10:25 99 115/70 10/11/20 10:08 98 87 115/70 10/11/20 10:00 32 H 10/11/20 08:00 97.1 F L 26 H 10/11/20 06:57 121 H 10/11/20 06:00 98.6 F 17 BP Pulse Ox Pulse Ox 10/11/20 14:51 10/11/20 12:00 10/11/20 10:25 10/11/20 10:08 123/72 94 L 94 L 10/11/20 10:00 10/11/20 08:00 10/11/20 06:57 10/11/20 06:00 Weight Admit Weight 326 lb 8.073 oz Weight 335 lb 1.642 oz Most Recent Monitor Data Heart Rate from ECG 106 NIBP 125/82 NIBP BP-Mean 96 Respiration from ECG 31 SpO2 93 I&O: 10/10/20 10/11/20 10/12/20 06:59 06:59 06:59 Intake Total 3296 5065.6 360 Output Total 3425 2685 1050 Balance -129 2380.6 -690 Result Diagrams: 10/11/20 04:25 10/11/20 04:25 Additional Labs: Accuchecks 10/11/20 10/11/20 10/11/20 16:19 10:57 04:35 POC Glucose 287 H 269 H 227 H 10/10/20 21:36 POC Glucose 219 H Hospitalist ROS - Medication Medications: Active Medications Generic Name Dose Route Start Last Admin Trade Name Freq PRN Reason Stop Dose Admin Albuterol/Ipratropium 3 ml 09/10/20 10:30 10/11/20 14:51 Ipratropium/Albuterol Sulfate 3 Ml Neb NEB 3 ml [id number] ALIYAH Administration Atorvastatin Calcium 40 mg 09/08/20 21:00 10/10/20 20:56 Atorvastatin Calcium 40 Mg Tab PO 40 mg HS ALIYAH Administration Carvedilol 3.125 mg 10/08/20 17:00 10/11/20 08:22 Carvedilol 3.125 Mg Tab PO 3.125 mg BID-WM ALIYAH Administration Diltiazem HCl 90 mg 09/29/20 09:00 10/11/20 08:21 Diltiazem Hcl 30 Mg Tablet PO 90 mg BID ALIYAH Administration Enoxaparin Sodium 40 mg 09/24/20 21:00 10/10/20 20:56 Enoxaparin Sodium 40 Mg/0.4 Ml Syringe SC 40 mg 2100 ALIYAH Administration Furosemide 20 mg 10/09/20 14:00 10/11/20 14:51 Furosemide 20 Mg/2 Ml Vial SLOW IVP 20 mg 0600,1400 ALIYAH Administration Hydralazine HCl 20 mg 09/16/20 07:55 09/22/20 05:12 Hydralazine 20 Mg/Ml Vial SLOW IVP 20 mg Q6H PRN Administration SBP>180 Norepinephrine Bitartrate 250 mls @ 0 mls/hr 09/27/20 12:15 09/28/20 12:54 Levophed IVPB 250 mls INF ALIYAH Administration Protocol Titrate Fentanyl 100 mls @ 0 mls/hr 10/03/20 14:45 10/11/20 13:01 Fentanyl Cadd IV 100 mls INF ALIYAH Administration Protocol Per Protocol Meropenem 1 gm/ Device 50 mls @ 100 mls/hr 10/08/20 10:00 10/11/20 10:42 IVPB 50 mls 0200,1000,1800 ALIYAH Administration Dextrose/Water 1,000 mls @ 50 mls/hr 10/09/20 07:15 10/10/20 09:05 D5w IV 1,000 mls .Q20H ALIYAH Administration Insulin Human Regular 0 units 09/08/20 20:03 10/11/20 06:05 Insulin Regular 300 Units/3 Ml Vial SC 9 units .AGGRESSIVE SLIDING PRN Administration Aggressive [employer] Scale Methylprednisolone Sodium Succinate 20 mg 10/05/20 21:00 10/11/20 08:22 Methylprednisolone Sod Succ 40 Mg Vial IVP 20 mg Q12HR ALIYAH Administration Metoclopramide HCl 10 mg 09/14/20 18:50 09/22/20 03:14 Metoclopramide Hcl 10 Mg/2 Ml Vial IVP 10 mg Q6H PRN Administration Nausea/Vomiting Pantoprazole Sodium 40 mg 09/28/20 09:00 10/11/20 08:22 Pantoprazole 40 Mg Vial IVP 40 mg DAILY ALIYAH Administration Potassium Chloride 20 meq 10/09/20 17:00 10/11/20 08:22 Potassium Chloride 20 Meq Tab PO 20 meq BID-WM ALIYAH Administration Psyllium Hydrophilic Mucilloid 1 pk 10/05/20 09:00 10/11/20 08:22 Metamucil Pack PER TUBE 1 pk DAILY ALIYAH Administration Sodium Chloride 10 ml 09/09/20 09:00 10/11/20 08:23 Flush - Normal Saline 10 Ml Syringe IVF 10 ml Q12HR ALIYAH Administration Sterile Water 10 ml 10/02/20 19:15 10/02/20 20:18 Sterile Water 10 Ml Vial FS 10 ml PRN PRN Administration VEC RECONSTITUTION Tamsulosin HCl 0.4 mg 09/09/20 09:00 10/11/20 08:21 Tamsulosin Hcl 0.4 Mg Cap PO 0.4 mg DAILY ALIYAH Administration Vecuronium [place] 10 mg 10/02/20 19:12 10/02/20 20:18 Vecuronium 10 Mg Vial IVP 10 mg Q1H PRN Administration .AGITATION Hospitalist Exam Vitals: Vital Signs (12 hours) Temp Pulse Pulse Pulse Resp BP BP 10/11/20 14:51 116 H 10/11/20 12:00 97.7 F 33 H 10/11/20 10:25 99 115/70 10/11/20 10:08 98 87 115/70 10/11/20 10:00 32 H 10/11/20 08:00 97.1 F L 26 H 10/11/20 06:57 121 H 10/11/20 06:00 98.6 F 17 BP Pulse Ox Pulse Ox 10/11/20 14:51 10/11/20 12:00 10/11/20 10:25 10/11/20 10:08 123/72 94 L 94 L 10/11/20 10:00 10/11/20 08:00 10/11/20 06:57 10/11/20 06:00 Weight Admit Weight 326 lb 8.073 oz Weight 335 lb 1.642 oz Most Recent Monitor Data Heart Rate from ECG 106 NIBP 125/82 NIBP BP-Mean 96 Respiration from ECG 31 SpO2 93 General Appearance: ill appearing Eye: PERRL, anicteric sclera ENT: no oropharyngeal lesions, moist mucosa Neck: supple, no JVD Heart: RRR, no murmur Respiratory: no wheezes, no rales Gastrointestinal: soft, non-tender, non-distended, normal bowel sounds Extremities: no cyanosis, 1+ LE edema Neurological: cranial nerve grossly intact, no focal deficits Hosp A/P (1) Acute respiratory failure with hypoxia Code(s): J96.01 - ACUTE RESPIRATORY FAILURE WITH HYPOXIA Status: Acute (2) COPD exacerbation Code(s): J44.1 - CHRONIC OBSTRUCTIVE PULMONARY DISEASE W (ACUTE) EXACERBATION Status: Acute (3) CHF exacerbation Code(s): I50.9 - HEART FAILURE, UNSPECIFIED Status: Chronic Qualifiers: Heart failure type: diastolic Qualified Code(s): I50.33 - Acute on chronic diastolic (congestive) heart failure (4) CRISTA (acute kidney injury) Code(s): N17.9 - ACUTE KIDNEY FAILURE, UNSPECIFIED Status: Resolved (5) Physical deconditioning Code(s): R53.81 - OTHER MALAISE Status: Acute (6) Pneumonia due to 2019-nCoV Code(s): U07.1 - COVID-19; J12.89 - OTHER VIRAL PNEUMONIA Status: Chronic (7) Atrial fibrillation Code(s): I48.91 - UNSPECIFIED ATRIAL FIBRILLATION Status: Chronic Qualifiers: Atrial fibrillation type: paroxysmal Qualified Code(s): I48.0 - Paroxysmal atrial fibrillation (8) BPH (benign prostatic hyperplasia) Code(s): N40.0 - BENIGN PROSTATIC HYPERPLASIA WITHOUT LOWER URINRY TRACT SYMP Status: Chronic Qualifiers: Lower urinary tract symptom presence: symptoms absent Qualified Code(s): N40.0 - Benign prostatic hyperplasia without lower urinary tract symptoms (9) Diabetes mellitus Code(s): E11.9 - TYPE 2 DIABETES MELLITUS WITHOUT COMPLICATIONS Status: Chronic Qualifiers: Diabetes mellitus type: type 2 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: with residential use Diabetes mellitus complication status: with hyperglycemia Qualified Code(s): E11.65 - Type 2 diabetes mellitus with hyperglycemia; Z79.4 - retirement (current) use of insulin (10) Gout Code(s): M10.9 - GOUT, UNSPECIFIED Status: Chronic Qualifiers: Gout site: unspecified site Gout etiology: unspecified cause (11) HTN (hypertension) Code(s): I10 - ESSENTIAL (PRIMARY) HYPERTENSION Status: Chronic Qualifiers: Hypertension type: essential hypertension Qualified Code(s): I10 - Essential (primary) hypertension (12) Hyperlipidemia Code(s): E78.5 - HYPERLIPIDEMIA, UNSPECIFIED Status: Chronic Qualifiers: Hyperlipidemia type: mixed hyperlipidemia Qualified Code(s): E78.2 - Mixed hyperlipidemia (13) Morbid obesity Code(s): E66.01 - MORBID (SEVERE) OBESITY DUE TO EXCESS CALORIES Status: Chronic (14) Normocytic anemia Code(s): D64.9 - ANEMIA, UNSPECIFIED Status: Chronic (15) Obstructive sleep apnea Code(s): G47.33 - OBSTRUCTIVE SLEEP APNEA (ADULT) (PEDIATRIC) Status: Chronic - Plan is on merrem, lasix bid, lantus 30 bid, steroids, alb inh, protonix flomax, lipitor, coreg, cardizem 90mg bid and lovenox for dvt prophylaxis. anasarca is better on lasix bid, watch for renal function, diuresing well from last 6 days, sodium is up a bit. his peg got dislodged twice and currently has one for feeding and meds, still encephalopathic. he had enterococcus bacteremia and was dc'd on zyvox during his previous hosp in aug here. prognosis poor, this was d/w Ms.Brown Cobian daughter and gave her a full update on 10/06/20. She is aware of fathers deconditioning with anasarca and multiple med issues, she does not want cpr done on him if his heart stops but to continue vent and see if he can make any progress. D/w grand daughter at bedside and gave full updates, she is aware he is not responding to verbal stimuli and severe deconditioning 10/07/20. PT to work with him when he is off sedation aggressively. d/w Mrs.Sherry Hogan and gave an update, she is aware he is not respondin g/encephalopathic 10/08, 10/09 (says a brother is coming tomorrow or thursday and they will all take a collective decision for possible hospice?, d/w with her again this am, says they will all come to hospital and decide course in am. severe deconditioning
[2020-10-11] MEDS: Enoxaparin Sodium 40 MG/0.4 ML SYRINGE SC SCH (20:49)
[2020-10-11] MEDS: Atorvastatin Calcium 40 MG TAB PO SCH (20:50)
[2020-10-11] MEDS: Dextrose 5% in Water 1,000 ML IV SCH (21:14)
[2020-10-12] MEDS: MEROPENEM 1 GM/50 ML 1 GM in Premix Bag 1 BAG IVPB SCH ×2 (01:22→09:36)
[2020-10-12] MEDS: Insulin Regular 300 UNITS/3 ML VIAL SC PRN ×2 (03:06→10:55)
[2020-10-12 04:09] LABS: BUN (Urea Nitrogen) 58 mg/dL (8.4-25.7); Calc. Creatinine Clearance 165 mL/min (70-130); Calcium 8.4 mg/dL (7.8-10.44); Glucose 219 mg/dL (83-110)
[2020-10-12 04:20] LABS: Chloride 95 mmol/L (98-107); Sodium 143 mmol/L (136-145)
[2020-10-12 04:22] LABS: Anion Gap 14 mmol/L (10-20); Carbon Dioxide 39 mmol/L (23-31)
[2020-10-12 05:11] LABS: Band 16 % (5-11); Hemoglobin 9.2 g/dL (14.0-18.0); Lymphocytes 7 % (21-51); MDiff Complete? YES; Mean Corpuscular HGB CONC 31.7 g/dL (32.0-36.0); Mean Corpuscular Hemoglobin 28.9 pg (27.0-31.0); Mean Corpuscular Volume 91.3 fL (78.0-98.0); Mean Platelet Volume 11.9 fL (7.4-10.4); Monocytes 1 % (0-10); Myelocyte 1 % (0-0); Neutrophil 74 % (42-75); Platelet Count 123 thou/uL (130-400); RBC Distribution Width 15.6 % (11.5-14.5); Reactive Lymphocytes 1 % (0-10); Red Blood Cell (RBC) Count 3.18 mill/uL (4.70-6.10); White Blood Cell (WBC) Count 14.3 thou/uL (4.8-10.8)
[2020-10-12] MEDS: Furosemide 20 MG/2 ML VIAL SLOW IVP SCH (06:31)
[2020-10-12 07:25] VITALS: BP 111/83
[2020-10-12 08:04] VITALS: TEMP 97.4
[2020-10-12] MEDS: Potassium Chloride 20 MEQ TAB PO SCH (08:11)
[2020-10-12] MEDS: Tamsulosin HCl 0.4 MG CAP PO SCH (08:11)
[2020-10-12] MEDS: Carvedilol 3.125 MG TAB PO SCH (08:11)
[2020-10-12] MEDS: methylPREDNISolone Sod Succ 40 MG VIAL IVP SCH (08:12)
[2020-10-12] MEDS: Pantoprazole 40 MG VIAL IVP SCH (08:12)
[2020-10-12] MEDS: Metamucil PACK PER TUBE SCH (09:36)
[2020-10-12] MEDS ORDERED: Morphine 4 MG/ML VIAL SLOW IVP PRN ×2 (11:21→12:21)
[2020-10-12] MEDS ORDERED: Lorazepam 2 MG/ML VIAL SLOW IVP PRN (11:23)
--- NOTE | 2020-10-12 11:56 | PDOC.FMACP ---
Advance Care Planning - Problem (1) Respiratory failure requiring intubation Status: Acute Code(s): J96.90 - RESPIRATORY FAILURE, UNSP, UNSP W HYPOXIA OR HYPERCAPNIA (2) Palliative care encounter Status: Acute Code(s): Z51.5 - ENCOUNTER FOR PALLIATIVE CARE (3) Physical deconditioning Status: Acute Code(s): R53.81 - OTHER MALAISE (4) Pneumonia due to 2019-nCoV Status: Chronic Code(s): U07.1 - COVID-19; J12.89 - OTHER VIRAL PNEUMONIA (5) CHF (congestive heart failure) Status: Chronic Code(s): I50.9 - HEART FAILURE, UNSPECIFIED Qualifiers: Heart failure type: diastolic Heart failure chronicity: chronic Qualified Code(s): I50.32 - Chronic diastolic (congestive) heart failure (6) COPD (chronic obstructive pulmonary disease) Status: Chronic Qualifiers: Chronic bronchitis type: unspecified - Note Participants: family, palliative care Summary: Palliative Care revisited Advanced Care Planning. The diagnosis, prognosis and goals of care were discussed. Appropriate forms and documentation to accomplish the goals of care were discussed. All questions were answered. Family elected to transition care to comfort measures Elected not to pursue Hospice Communicated with Dr Jean Comfort measures for transition of care DNAR complete. Time Spent (mins): 40
--- NOTE | 2020-10-12 12:48 | PRG ---
DATE OF SERVICE: 10/12/2020 SUBJECTIVE: Mr. Hogan has his eyes open, makes eye contact today. OBJECTIVE: VITAL SIGNS: Heart rate is 110, respiratory rates in the 30s, oximetry is 90% on 55%, blood pressure 134/99. Intake and output -99 mL. LUNGS: Remarkable for rhonchi bilaterally. HEART: Regular rhythm. ABDOMEN: Soft. LABORATORY DATA: White count 14, hemoglobin 9, platelets 123. BUN is 58, creatinine is 0.7, potassium is 5. ASSESSMENT AND PLAN: Apparently, the family has decided they want to withdraw care today, received comfort measures. I feel this is perfectly appropriate and reasonable. Job ID: [id number]
--- NOTE | 2020-10-12 19:13 | DIS ---
DATE OF ADMISSION: 09/08/2020 DATE OF DISCHARGE: 10/12/2020 SUMMARY: DATE OF : 10/12/2020 at 12:29 p.m. PRIMARY CAUSE OF : COVID-19 pneumonia with acute respiratory failure; CHF exacerbation with diastolic dysfunction, and COPD exacerbation, both from 35 days. FACTORS CONTRIBUTING TO : 1. Peritonitis with intraabdominal infection with displaced PEG tube. 2. Diabetes mellitus type 2. 3. Deconditioning. 4. Morbid obesity with BMI of 45. BRIEF COURSE DURING HOSPITALIZATION: The patient initially got admitted on the 08 of September for shortness of breath. He was diagnosed with COVID-19 pneumonia on August 05, 2020. The patient has had multiple hospitalizations for COVID pneumonia since then. The patient was soon went into acute respiratory failure and was not tolerating BiPAP and had to be intubated on the same day as admission. Since then, the patient has been in ICU. He has not made much progress during his stay. He has also had CHF and COPD exacerbations. He has had diastolic dysfunction with normal ejection fraction of 55%. The patient has had severe deconditioning with anasarca. Multiple discussions were held with family regarding the patient's severe deconditioning and nearly 35 days on the ventilator with no progress. He was initially made do not attempt to resuscitate and later family went in for withdrawal of care on the . He was pronounced at 12:29 p.m. His body will be released to home per hospital protocol. Job ID: [id number] MTDD
--- NOTE | 2020-10-16 08:54 | PQF ---
CLINICAL DOCUMENTATION CLARIFICATION FORM: Dear : Oh Cerda MD Date / Time: 10/16/2020 Please exercise your independent, professional judgment in responding to the clarification form. Clinical indicators are provided on the bottom of this form for your review Please check appropriate box(es): [ ] Excisional Debridement: [ x ] Excised [ x ] Cut away [ ] Other: Depth / layer: (deepest layer of debridement): [ x ] Skin [x ] Subcutaneous [ ] Fascia [ ] Muscle [ ] Tendon [ ] Bone Appearance of wound: (e.g., down to fresh bleeding tissue, etc.) Margins: (please specify): / x x Instruments used: [ ] Scissors [ ] Scalpel [ ] Other: [ ] Non-excisional Debridement: (Removal by ?ushing, brushing, chemical, or washing) Depth / layer: (deepest layer of debridement): [ ] Skin [ ] Subcutaneous [ ] Fascia [ ] Muscle [ ] Tendon [ ] Bone [ ] Other procedure diagnosis (Please specify if any) [ ] Unable to determine Physician Signature: Date/Time: For continuity of documentation, please document condition throughout progress notes and discharge summary. Thank You. To be completed by CDI/Coding staff for physician review: Present Clinical Indicators - Signs / Symptoms / Labs Results and Location in Medical Record [x] Incision & drainage of old PEG tube site Op note on 09/27 [ ] Cutting away of tissue (e.g., scissors, scalpel, etc.) [x] There was some debris & inflammation of the subcutaneous tissue. This was debrided sharply Op note on 09/27 [x] Debrided sharply, irrigated & then just below the anterior rectus fascia Op note on 09/27 Present Risk Factors Results and Location in Medical Record [x] Dislodged PEG tube in the subcutaneous tissue Progress notes on 09/27 Present Treatments Results and Location in Medical Record [x] Incision & drainage of old PEG tube site, pulse irrigation of rectus sheath, replacement of gastrostomy tube Op note on 09/27 [x] We would recommend emergent debridement of skin & subcutaneous tissue Progress notes on 09/27 CDS/Supervisor [employer] Signature: KEMI Phone #: Date/Time: 10/16/2020 This is a permanent part of the Medical Record [facility]
== END 2020-10-12 14:30 | disposition expired | DRG 3 ==
LOC: ERS 18:07 → ERHOLD 20:00 → CCU 09-09 06:32
PROVIDERS: ADMIT Internal Medicine; ATTEND Internal Medicine
PROC: 3E033XZ Introduction of Vasopressor into Peripheral Vein, Percutaneous Approach (ICD-10-PCS; 2020-09-09)
PROC: 0BH17EZ Insertion of Endotracheal Airway into Trachea, Via Natural or Artificial Opening (ICD-10-PCS; principal; 2020-09-10)
PROC: 5A1955Z Respiratory Ventilation, Greater than 96 Consecutive Hours (ICD-10-PCS; 2020-09-10)
PROC: 0B110F4 Bypass Trachea to Cutaneous with Tracheostomy Device, Open Approach (ICD-10-PCS; 2020-09-20)
PROC: 0DH63UZ Insertion of Feeding Device into Stomach, Percutaneous Approach (ICD-10-PCS; 2020-09-20)
PROC: 0JB80ZZ Excision of Abdomen Subcutaneous Tissue and Fascia, Open Approach (ICD-10-PCS; 2020-09-27)
PROC: 0DP6XUZ Removal of Feeding Device from Stomach, External Approach (ICD-10-PCS; 2020-09-27)
PROC: 0DH63UZ Insertion of Feeding Device into Stomach, Percutaneous Approach (ICD-10-PCS; 2020-09-27)
DX: A41.9 Sepsis, unspecified organism (principal); U07.1 COVID-19; J12.82 Pneumonia due to coronavirus disease 2019; R65.21 Severe sepsis with septic shock; J15.9 Unspecified bacterial pneumonia; I50.33 Acute on chronic diastolic (congestive) heart failure; K65.9 Peritonitis, unspecified; J80 Acute respiratory distress syndrome; N39.0 Urinary tract infection, site not specified; J44.1 Chronic obstructive pulmonary disease with (acute) exacerbation; N17.9 Acute kidney failure, unspecified; Z68.42 Body mass index [BMI] 45.0-49.9, adult; I42.9 Cardiomyopathy, unspecified; J98.11 Atelectasis; J44.0 Chronic obstructive pulmonary disease with (acute) lower respiratory infection; I13.0 Hypertensive heart and chronic kidney disease with heart failure and stage 1 through stage 4 chronic kidney disease, or unspecified chronic kidney disease; E87.1 Hypo-osmolality and hyponatremia; G93.40 Encephalopathy, unspecified; E46 Unspecified protein-calorie malnutrition; K94.23 Gastrostomy malfunction; K94.22 Gastrostomy infection; J81.1 Chronic pulmonary edema; J20.9 Acute bronchitis, unspecified; E11.65 Type 2 diabetes mellitus with hyperglycemia; E87.5 Hyperkalemia; Z51.5 Encounter for palliative care; R13.10 Dysphagia, unspecified; G72.9 Myopathy, unspecified; E88.09 Other disorders of plasma-protein metabolism, not elsewhere classified; Y83.9 Surgical procedure, unspecified as the cause of abnormal reaction of the patient, or of later complication, without mention of misadventure at the time of the procedure; Y92.239 Unspecified place in hospital as the place of occurrence of the external cause; D69.6 Thrombocytopenia, unspecified; D64.9 Anemia, unspecified; B95.2 Enterococcus as the cause of diseases classified elsewhere; Z66 Do not resuscitate; E11.22 Type 2 diabetes mellitus with diabetic chronic kidney disease; E78.2 Mixed hyperlipidemia; N18.9 Chronic kidney disease, unspecified; E78.00 Pure hypercholesterolemia, unspecified; I25.10 Atherosclerotic heart disease of native coronary artery without angina pectoris; I48.91 Unspecified atrial fibrillation; M10.9 Gout, unspecified; N40.0 Benign prostatic hyperplasia without lower urinary tract symptoms; E66.01 Morbid (severe) obesity due to excess calories; L89.159 Pressure ulcer of sacral region, unspecified stage; G47.33 Obstructive sleep apnea (adult) (pediatric); Z88.0 Allergy status to penicillin; Z88.1 Allergy status to other antibiotic agents; Z79.4 Long term (current) use of insulin
CPT/HCPCS: 0240U; 36415; 36416; 36600; 71045; 74018; 74176; 80048; 80053; 80202; 82805; 83605; 83735; 83880; 84145; 85007; 85025; 85027; 86850; 86900; 86901; 87040; 87070; 87205; 93005; 93306; 94002; 94003; 94640; 96365; 96366; 96367; 96368; 96374; 96375; 96376; 99292; C1751; C9113; J0360; J1160; J1650; J1815; J1940; J1956; J2060; J2185; J2248; J2250; J2270; J2704; J2765; J2920; J2930; J3010; J3370; J3475; J3480; J3490; J7030; J7050; J7070; J7611; J7620; P9047; Q9963; Q9967; S0020; S0028